=== PATIENT | female | born 1965 | race Caucasian/White ===

== ENCOUNTER 2017-07-29 18:32 | Emergency (ER) | payer MEDICARE, MEDICAID ==
[~2017-07-29] VITALS: Ht 170.2 cm; Wt 84.8 kg
[~2017-07-29 18:32] MED LIST: ALBUTEROL-200 PUFFS/ IH; AUGMENTIN 875-1 EACH PO; CIPROFLOXACIN500 MG PO; CLARITIN 10MG T10 MG PO; FLEXERIL10 MG PO; GABAPENTIN100 MG PO; HYDROCODONE1 TABLET PO; LORTAB 5/500 501 TAB PO; MEDROL 4MG. DOSE4 MG PO; METOPROLOL25 MG PO; NAPROSYN 500MG500 MG PO; NAPROSYN500 M1 PO; OXYCODONE 5MG TA5 MG PO; PREDNISONE 10MG10 MG PO; PREMARIN1.25 MG PO; PREVACID SOLUTA30 M1 PO; ROBAXIN-750750 MG PO; TOPAMAX100 MG PO; VICODIN 5/500 T1 TAB PO; ZITHROMAX Z-PA250 M1 PO
[2017-07-29 19:06] LABS: LYMPH # 2.4 K/mm3 (0.7-4.5); LYMPH % 32.4 % (10-50.0)
[2017-07-29 19:24] LABS: HEMOGLOBIN 10.7 g/dL (12.2-16.2)
--- NOTE | 2017-07-29 19:24 | Emergency Room Report ---
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 Y Clinical Suspician of Infection? N Mental Status: 1 - Regular (Normal Baseline) Sepsis Risk:Low Sepsis Risk Have you (or family members/close friends) recently traveled outside the [place]? N If Yes, where/when: Have you had exposure to infectious disease within the past month? N TB? Other? Specify: Source patient, RN notes reviewed Exam Limitations no limitations Comment Pt had a total knee replacement at [facility] by Dr. Loving on Tuesday. She had to have a catheter to drain urine prior to discharge. On she had a temp to 100 degrees and comes to the ED today because her incision looks a little red and now has a T=99.5. Her LHL=0206 with a normal diff. Cardiac Chest Pain Chest pain indicative of cardiac No Timing/Duration week Severity mild ALLERGIES Coded Allergies: codeine (ITCHING 04/24/16) Home Medications Reported Medications Topiramate (Topamax) 100 MG PO TID Gabapentin (Gabapentin 100MG) 100 MG PO QHS Conjugated Estrogens (Premarin) 1.25 MG PO DAILY Albuterol (Albuterol-Hfa Inhaler) 1 PUFF IH Q4HP PRN ASTHMA Loratadine (Claritin 10MG) 10 MG PO DAILY History Medical History General CAD? No Angina: No NC: No Hypertension? No Hyperlipidemia? No CHF? No DVT? No PE? No COPD? No Asthma? Yes Anemia? No GERD? No Gastric ulcers? No GI Bleed? No Hernia? No Thyroid Problems? No Hypothyroidism? No CVA? No Seizures? No Diabetes? No Renal Insuffiency? No End Stage Renal Disease? No UTI? No Stones? Yes BPH? No GB Disease: Yes Nephritic Syndrome? No Asplenia? No Hepatitis? No Sickle Cell Disease? No Arthritis? No Migraines? Yes Cataracts? No Glaucoma? No MRSA? No HIV? No TB? No Anxiety? No Depression? No Cancer? 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 No Laurent was queried for this patient? Yes Results/Orders Laboratory Tests 07/29/171934: Urine Color YELLOW, Urine Appearance CLEAR, Urine pH 6.0, Ur Specific [place] <= 1.005, Urine Protein NEGATIVE, Urine Ketones 1+ H, Urine Blood 2+ H, Urine Nitrate NEGATIVE, Urine Bilirubin NEGATIVE, Urine Urobilinogen 0.2, Ur Leukocyte Esterase NEGATIVE, Urine RBC 3-5, Urine WBC 3-5, Ur Squamous Epith Cells 5-10, Urine Glucose NEGATIVE 07/29/171854: Lactic Acid 0.7, ESR 66 H 07/29/171854: Sodium 137, Potassium 3.3 L, Chloride 102, Carbon Dioxide 24, BUN 10, Creatinine 0.8, Estimated Creat Clear 113, Estimated GFR (MDRD) 76, Glucose 107 H, Calcium 8.9, Total Bilirubin 0.5, AST 13 L, ALT 16, Alkaline Phosphatase 105 , Total Protein 7.2, Albumin 3.2 L, Globulin 4.0 H, Albumin/Globulin Ratio 0.8 L, WBC 7.3, RBC 3.71 L, Hgb 10.7 L, Hct 32.9 L, MCV 88.7, RDW 13.3, Plt Count 234, MPV 7.4, Gran % 59.0, Gran # 4.3, Lymphocytes % 32.4, Monocytes % 5.6 , Eosinophils % 2.8, Basophils % 0.2, Lymphocytes # 2.4, Monocytes # 0.4, Eosinophils # 0.2, Basophils # 0.0, PUBS MCHC 32.7, MCH 29.0 Current Medication Orders Sig/Nena Start time Last Medication Dose Route Stop Time Status Admin Sodium Chloride 10 ML PRN PRN 07/29 1900 AC IV 07/30 1849 Orders Procedure Date/time Status URINALYSIS/COMPLETE 07/29 1931 Complete SED RATE 07/29 1926 Complete C-REACTIVE PROTEIN 07/29 1926 Complete IV SALINE LOCK 07/29 1850 Active CULTURE, BLOOD 07/29 1850 Active LACTIC ACID 07/29 1850 Complete CBC WITH AUTO DIFF 07/29 1850 Complete CHEM 12 PROFILE 07/29 1850 Complete Departure Departure Time of Disposition 2050 Disposition DC Home or Self Care(routine) Clinical Impression Primary Impression: Postoperative fever Condition STABLE Referrals KEVIN LYNNE (PCP/Family) Patient Instructions DI for Fever (Symptom) -- Adult Additional Instructions I discussed her care with the Orthopedist on-call for Dr. Loving and with her WBC being normal and her incision looking so good, he does not recommend giving her any antibiotics. If her fever goes above 101 degrees, she needs to call them this weekend and go there to be seen Discharge Counseling Counseled pt/family regarding diagnosis, test results, medications/RX, home care, follow up needs ED Critical Care Critical Care No If Critical Care minutes are documented, the time involved in the performance of seperately reportable procedures was not counted toward critical care time documented. I directly delivered medical care to this critically ill and/or injured patient. Timely evaluation and treatment was necessary to address the significant organ system(s) dysfunction present in this patient. at 2054
--- NOTE | 2017-07-29 19:24 | Emergency Room Report ---
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 Y Clinical Suspician of Infection? N Mental Status: 1 - Regular (Normal Baseline) Sepsis Risk:Low Sepsis Risk Have you (or family members/close friends) recently traveled outside the [place]? N If Yes, where/when: Have you had exposure to infectious disease within the past month? N TB? Other? Specify: Source patient, RN notes reviewed Exam Limitations no limitations Comment Pt had a total knee replacement at [facility] by Dr. Loving on Tuesday. She had to have a catheter to drain urine prior to discharge. On she had a temp to 100 degrees and comes to the ED today because her incision looks a little red and now has a T=99.5. Her THJ=5290 with a normal diff. Cardiac Chest Pain Chest pain indicative of cardiac No Timing/Duration week Severity mild ALLERGIES Coded Allergies: codeine (ITCHING 04/24/16) Home Medications Reported Medications Topiramate (Topamax) 100 MG PO TID Gabapentin (Gabapentin 100MG) 100 MG PO QHS Conjugated Estrogens (Premarin) 1.25 MG PO DAILY Albuterol (Albuterol-Hfa Inhaler) 1 PUFF IH Q4HP PRN ASTHMA Loratadine (Claritin 10MG) 10 MG PO DAILY History Medical History General CAD? No Angina: No PR: No Hypertension? No Hyperlipidemia? No CHF? No DVT? No PE? No COPD? No Asthma? Yes Anemia? No GERD? No Gastric ulcers? No GI Bleed? No Hernia? No Thyroid Problems? No Hypothyroidism? No CVA? No Seizures? No Diabetes? No Renal Insuffiency? No End Stage Renal Disease? No UTI? No Stones? Yes BPH? No GB Disease: Yes Nephritic Syndrome? No Asplenia? No Hepatitis? No Sickle Cell Disease? No Arthritis? No Migraines? Yes Cataracts? No Glaucoma? No MRSA? No HIV? No TB? No Anxiety? No Depression? No Cancer? 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 No Laurent was queried for this patient? Yes Results/Orders Laboratory Tests 07/29/171934: Urine Color YELLOW, Urine Appearance CLEAR, Urine pH 6.0, Ur Specific [place] <= 1.005, Urine Protein NEGATIVE, Urine Ketones 1+ H, Urine Blood 2+ H, Urine Nitrate NEGATIVE, Urine Bilirubin NEGATIVE, Urine Urobilinogen 0.2, Ur Leukocyte Esterase NEGATIVE, Urine RBC 3-5, Urine WBC 3-5, Ur Squamous Epith Cells 5-10, Urine Glucose NEGATIVE 07/29/171854: Lactic Acid 0.7, ESR 66 H 07/29/171854: Sodium 137, Potassium 3.3 L, Chloride 102, Carbon Dioxide 24, BUN 10, Creatinine 0.8, Estimated Creat Clear 113, Estimated GFR (MDRD) 76, Glucose 107 H, Calcium 8.9, Total Bilirubin 0.5, AST 13 L, ALT 16, Alkaline Phosphatase 105 , Total Protein 7.2, Albumin 3.2 L, Globulin 4.0 H, Albumin/Globulin Ratio 0.8 L, WBC 7.3, RBC 3.71 L, Hgb 10.7 L, Hct 32.9 L, MCV 88.7, RDW 13.3, Plt Count 234, MPV 7.4, Gran % 59.0, Gran # 4.3, Lymphocytes % 32.4, Monocytes % 5.6 , Eosinophils % 2.8, Basophils % 0.2, Lymphocytes # 2.4, Monocytes # 0.4, Eosinophils # 0.2, Basophils # 0.0, PUBS MCHC 32.7, MCH 29.0 Current Medication Orders Sig/Nena Start time Last Medication Dose Route Stop Time Status Admin Sodium Chloride 10 ML PRN PRN 07/29 1900 AC IV 07/30 1849 Orders Procedure Date/time Status URINALYSIS/COMPLETE 07/29 1931 Complete SED RATE 07/29 1926 Complete C-REACTIVE PROTEIN 07/29 1926 Complete IV SALINE LOCK 07/29 1850 Active CULTURE, BLOOD 07/29 1850 Active LACTIC ACID 07/29 1850 Complete CBC WITH AUTO DIFF 07/29 1850 Complete CHEM 12 PROFILE 07/29 1850 Complete Departure Departure Time of Disposition 2050 Disposition DC Home or Self Care(routine) Clinical Impression Primary Impression: Postoperative fever Condition STABLE Referrals KEVIN LYNNE (PCP/Family) Patient Instructions DI for Fever (Symptom) -- Adult Additional Instructions I discussed her care with the Orthopedist on-call for Dr. Loving and with her WBC being normal and her incision looking so good, he does not recommend giving her any antibiotics. If her fever goes above 101 degrees, she needs to call them this weekend and go there to be seen Discharge Counseling Counseled pt/family regarding diagnosis, test results, medications/RX, home care, follow up needs ED Critical Care Critical Care No If Critical Care minutes are documented, the time involved in the performance of seperately reportable procedures was not counted toward critical care time documented. I directly delivered medical care to this critically ill and/or injured patient. Timely evaluation and treatment was necessary to address the significant organ system(s) dysfunction present in this patient. at 2054
--- OUTSIDE RECORDS SUMMARY | 2017-07-29 19:51 | External Medical Summary Rpt ---
Author Author [facility] Organization [facility] Address Unknown Phone Unavailable Care Team Providers Care Habilitation Worker Name Role Phone MAGED, (REF) PCP [phone] Encounter AGUSTINA PANG [id number] Date(s): 06/07/17 - 07/26/17 [facility] [address] [place] [address]- Discharge Diagnosis: Unilateral primary osteoarthritis, right knee Discharge Diagnosis: unicompartmental arthroplasty of right knee Discharge Diagnosis: Benign essential hypertension Discharge Diagnosis: Asthma Discharge Diagnosis: Seasonal allergies Discharge Diagnosis: History of Kidney stones Discharge Diagnosis: Migraines Discharge Diagnosis: Anxiety Discharge Diagnosis: Obesity (BMI 30.0-34.9) Discharge Disposition: OP Self Care or Home Attending Physician: FELECIA DYER MD-ORT Admitting Physician: ROMERO PALMER MD-INT Referring Physician: FELECIA DYER MD-ORT Reason for Visit UNILATERAL PRIMARY OSTEOARTHRITIS, UNSPECIFIED KNEE Vital Signs Most recent 1 2 3 to oldest [Reference Range]: Temperature Oral (07/26/17 Oral (07/26/17 Oral (07/26/17 Source 7:00 PM) 3:00 PM) 7:27 AM) Temperature Fahrenheit Fahrenheit Fahrenheit Mode (07/26/17 7:00 (07/26/17 3:00 (07/26/17 7:27 PM) PM) AM) Temperature, 98.3 Deg F 97.9 Deg F 97.8 Deg F Fahrenheit (07/26/17 7:00 (07/26/17 3:00 (07/26/17 7:27 [96.8-99.7 PM) PM) AM) Deg F] Clinical 36.8 Deg C 36.6 Deg C 36.6 Deg C Temperature, (07/26/17 7:00 (07/26/17 3:00 (07/26/17 7:27 C PM) PM) AM) Pulse Method Non-Invasive BP Device (07/12/17 10:22 AM) Pulse Rhythm Regular (07/12/17 10: AM) Peripheral 66 bpm (07/12/17 Pulse Rate : AM) [60-100 bpm] Heart Rate 67 bpm (07/26/17 92 bpm (07/26/17 80 bpm (07/26/17 Monitored 7:00 PM) 3:00 PM) 8:41 AM) [60-100 bpm] Respiratory 16 Breaths/Min 17 Breaths/Min 18 Breaths/Min Rate [14-20 (07/26/17 7:00 (07/26/17 3:00 (07/26/17 8:00 Breaths/Min] PM) PM) AM) Blood Arm, right upper Pressure (07/12/17 10:22 Location AM) Blood Non-Invasive BP Pressure Device (07/12/17 Source 10: AM) Blood Sitting (07/12/17 Pressure : AM) Position Blood 126/61 mmHg 123/62 mmHg 118/60 mmHg Pressure (07/26/17 7:00 (07/26/17 3:00 (07/26/17 8:00 [90-140/60-9 PM) PM) AM) 0 mmHg] Mean 83 mmHg (07/26/17 79 mmHg (07/26/17 74 mmHg (07/26/17 Arterial 7:00 PM) 8:00 AM) 7:27 AM) Pressure (MAP) Mean 68 (07/26/17 7:27 75 (07/26/17 3:58 64 (07/26/17 Arterial AM) AM) 12:18 AM) Pressure (MAP)-BMDI Oxygen 98 % (07/26/17 98 % (07/26/17 98 % (07/26/17 Saturation 7:00 PM) 3:00 PM) 8:00 AM) [94-100 %] Oxygen Room air Room air Room air Therapy Mode (07/26/17 8:41 (07/26/17 8:00 (07/25/17 8:21 AM) AM) PM) Oxygen Flow 2 Liter/Min 2 Liter/Min 2 Liter/Min Rate (07/25/17 1:05 (07/25/17 12:45 (07/25/17 12:30 PM) PM) PM) Height Stated (07/12/17 Source 10:22 AM) Height Entry [place] Format (07/12/17 10:22 AM) Height/Lengt 67 Inch (07/12/17 h CITIZEN [place] 10:22 AM) CLINICALHEIG 170.18 cm HT (07/12/17 10:22 AM) Weight Standing scale Source (07/12/17 10:22 AM) Weight Entry [place] Format (07/12/17 10:22 AM) Weight 205 lb (07/12/17 [place] lb 10:22 AM) CLINICALWEIG 93.18 kg HT (07/12/17 10:22 AM) Body Surface 2.05 m2 (07/12/17 Area (BSA) 10:22 AM) Body Mass 32.2 kg/m2 Index [19-24 *HI*(07/12/17 kg/m2] 10:22 AM) [place] Body 61 kg (07/12/17 Weight 10:22 AM) Problem List Condition Effective Status Health Informant Dates Status Anxiety(Conf Active irmed) Asthma(Confi Active rmed) Back Active pain(Confirm ed) HTN Active (hypertensio n)(Confirmed ) Kidney Resolved stones(Confi rmed) Migraines(Co Active nfirmed) Osteoarthrit Active is(Confirmed ) Seasonal Active allergies(Co nfirmed) Sinusitis(Co Active nfirmed) Allergies, Adverse Reactions, Alerts Substance Reaction Severity Status codeine1 Itching Active 1itching Medications albuterol (ProAir HFA 90 mcg/inh inhalation aerosol)2 Puff(s) Inhalation Four Times A Day as needed as needed for wheezing. aspirin (aspirin 81 mg oral tablet)1 Tablet(s) Oral Two Times A Day for 15 Day(s). Refills: 0.Ordering provider: ROMERO PALMER MD-INT cetirizine (cetirizine 10 mg oral tablet) 1 Tablet(s) Oral Every Day. conjugated estrogens (Premarin 1.25 mg oral tablet)1 Tablet(s) Oral Every Day. fluticasone-vilanterol (Breo Ellipta 200 mcg-25 mcg/inh inhalation powder)1 Puff(s) Inhalation Every Day. gabapentin (gabapentin 300 mg oral capsule) 2 Capsule(s) Oral At Bedtime. hydrochlorothiazide-losartan (hydroCHLOROthiazide-losartan 12.5 mg-50 mg oral tablet)0.5 Tablet(s) Oral Every Day. levocetirizine (levocetirizine 5 mg oral tablet)5 Milligram(s) Oral Every Day. oxyCODONE (oxyCODONE 5 mg oral tablet)1 Tablet(s) Oral Every 6 Hours as needed Pain (Moderate 4-6). potassium chloride (potassium chloride 10 mEq oral capsule, extended release)1 Capsule(s) Oral Every Day. topiramate (topiramate 100 mg oral tablet) 1 Tablet(s) Oral Three Times A Day. traMADol (traMADol 50 mg oral tablet)1 Tablet(s) Oral Four Times A Day as needed Pain (Mild 1-3). Results GENERAL CHEMISTRY Most recent 1 2 3 to oldest [Reference Range]: Sodium Level 140 mmol/L 141 mmol/L [136-145 (07/26/17 3:38 (07/12/17 11:12 mmol/L] AM) AM) Potassium 3.8 mmol/L 3.8 mmol/L Level (07/26/17 3:38 (07/12/17 11:12 [3.5-5.1 AM) AM) mmol/L] Chloride 106 mmol/L 106 mmol/L Level (07/26/17 3:38 (07/12/17 11:12 [98-107 AM) AM) mmol/L] Carbon 24 mmol/L 25 mmol/L Dioxide (07/26/17 3:38 (07/12/17 11:12 Level [21-32 AM) AM) mmol/L] Anion Gap 14 (07/26/17 3:38 14 (07/12/17 [9-20] AM) 11:12 AM) Glucose 108 mg/dL 99 mg/dL Level *HI*(07/26/17 (07/12/17 11:12 [74-106 3:38 AM) AM) mg/dL] Blood Urea 10 mg/dL 10 mg/dL Nitrogen (07/26/17 3:38 (07/12/17 11:12 [7-18 mg/dL] AM) AM) Creatinine 0.80 mg/dL 0.84 mg/dL Level (07/26/17 3:38 (07/12/17 11:12 [0.55-1.02 AM) AM) mg/dL] eGFR 92 mL/min/1.73m2 87 mL/min/1.73m2 [>=60 (07/26/17 3:38 (07/12/17 11:12 mL/min/1.73m AM) AM) 2] eGFR 76 mL/min/1.73m2 72 mL/min/1.73m2 NonAfrican (07/26/17 3:38 (07/12/17 11:12 [>=60 AM) AM) mL/min/1.73m 2] Bun/Creatini 12.5 (07/26/17 11.9 (07/12/17 ne 3:38 AM) 11:12 AM) [8.0-20.0] Calcium 8.3 mg/dL 9.0 mg/dL Level *LOW*(07/26/17 (07/12/17 11:12 [8.5-10.1 3:38 AM) AM) mg/dL] Protein 6.9 Gram/dL Total (07/12/17 11:12 [6.4-8.5 AM) Gram/dL] Albumin 3.4 Gram/dL Level (07/12/17 11:12 [3.4-5.0 AM) Gram/dL] Globulin 3.5 Gram/dL [1.5-4.5 (07/12/17 11:12 Gram/dL] AM) A/G Ratio 1.0 [1.1-2.5] *LOW*(07/12/17 11:12 AM) Bilirubin 0.4 mg/dL Total (07/12/17 11:12 [0.2-1.0 AM) mg/dL] Alk Phos 103 Units/Liter [46-116 (07/12/17 11:12 Units/Liter] AM) AST [15-37 13 Units/Liter Units/Liter] *LOW*(07/12/17 11:12 AM) ALT [14-59 13 Units/Liter Units/Liter] *LOW*(07/12/17 11:12 AM) Device No action Require Notified Nurse Comment 1 *NA*(07/25/17 RBV 11:54 AM) *NA*(07/25/17 7:12 AM) Glucose POC2 111 mg/dL 104 mg/dL 117 mg/dL [70-110 *HI*(07/26/17 (07/26/17 6:18 *HI*(07/25/17 mg/dL] 12:36 PM) AM) 8:18 PM) Hgb A1C 5.6 % (07/12/17 [4.5-6.2 %] 11:12 AM) eAVG Glucose 114 mg/dL *NA*(07/12/17 11:12 AM) HEMATOLOGY Most recent 1 2 3 to oldest [Reference Range]: WBC [4.2-9.1 5.1 K/uL K/uL] (07/12/17 11:12 AM) RBC 4.25 Million/uL [3.93-5.22 (07/12/17 11:12 Million/uL] AM) Hgb 10.1 Gram/dL 12.3 Gram/dL [11.2-15.7 *LOW*(07/26/17 (07/12/17 11:12 Gram/dL] 3:38 AM) AM) Hct 30.8 % 37.1 % (07/12/17 [34.1-44.9 *LOW*(07/26/17 11:12 AM) %] 3:38 AM) MCV 87.3 fL (07/12/17 [79.0-94.8 11:12 AM) fL] MCH 28.9 pg (07/12/17 [25.6-32.2 11:12 AM) pg] MCHC 33.2 Gram/dL [32.2-36.5 (07/12/17 11:12 Gram/dL] AM) Platelet 190 K/uL Count (07/12/17 11:12 [163-369 AM) K/uL] MPV 9.1 fL [9.4-12.4 *LOW*(07/12/17 fL] 11:12 AM) RDW 13.8 % (07/12/17 [11.6-14.4 11:12 AM) %] Neut % 47.3 % (07/12/17 [34.0-71.0 11:12 AM) %] Neut # 2.40 K/uL [1.56-6.13 (07/12/17 11:12 K/uL] AM) Lymph % 42.2 % (07/12/17 [19.0-53.0 11:12 AM) %] Lymph # 2.14 K/uL [1.18-3.74 (07/12/17 11:12 K/uL] AM) [place] % 7.9 % (07/12/17 [4.7-12.5 %] 11:12 AM) [place] # 0.40 K/uL [0.24-0.82 (07/12/17 11:12 K/uL] AM) Eos % 2.4 % (07/12/17 [1.0-7.0 %] 11:12 AM) Eos # 0.12 K/uL [0.04-0.54 (07/12/17 11:12 K/uL] AM) Baso % 0.2 % (07/12/17 [0.0-1.0 %] 11:12 AM) Baso # 0.01 K/uL [0.01-0.08 (07/12/17 11:12 K/uL] AM) Slide Review No (07/12/17 11:12 AM) COAGULATION Most recent 1 2 3 to oldest [Reference Range]: PT [9.6-11.5 10.4 Second(s) Second(s)] (07/12/17 11:12 AM) INR 1.0 (07/12/17 [0.9-1.1] 11:12 AM) PTT 29.4 Second(s) [24.2-31.8 (07/12/17 11:12 Second(s)] AM) URINALYSIS Most recent 1 2 3 to oldest [Reference Range]: Urine Type. U CleanCatch *NA*(07/12/17 11:16 AM) Urine Color Yellow *NA*(07/12/17 11:16 AM) Urine Clear (07/12/17 Appearance 11:16 AM) Urine 1.011 (07/12/17 Specific 11:16 AM) [place] [1.005-1.030 ] Urine pH 7.0 (07/12/17 Dipstick 11:16 AM) [6.0-8.0] Urine Negative Leukocyte (07/12/17 11:16 Esterase AM) [Negative] Urine Negative Nitrite (07/12/17:16 [Negative] AM) Urine Negative Protein (10/10/17 11:16 Dipstick AM) [Negative] Urine Negative Glucose (07/12/17 11:16 Dipstick AM) [Negative] Urine Negative Ketones (07/12/17 11:16 Dipstick AM) [Negative] Urine 1.0 EU/dL Urobilinogen (07/12/17 11:16 Dipstick AM) [0.2-1.0 EU/dL] Urine Negative mg/dL Bilirubin (07/12/17 11:16 Dipstick AM) [Negative mg/dL] Urine Blood Negative Dipstick (07/12/17 11:16 [Negative] AM) Ur RBC [None 0-2 /HPF Seen /HPF] *ABN*(07/12/17 11:16 AM) Ur WBC [None 0-2 /HPF Seen /HPF] (07/12/17 11:16 AM) Ur Bacteria Trace [None Seen] *ABN*(07/12/17 11:16 AM) Ur 10-20 /HPF Epithelial *ABN*(07/12/17 Cells [None 11:16 AM) Seen /HPF] Microbiology Reports TEST: MRSA Surveillance STATUS: Auth (Verified) BODY SITE: SOURCE: Nasal COLLECTED DATE/TIME: 07/12/17 11:12 AMFINAL REPORTNo MRSA isolated For Infection Control surveillance only Immunizations No data available for this section Procedures Procedure Date Related Body Site Diagnosis cardiac cath (no stents/no intervention) cholecystectomy left uni knee arthroplasty lithotripsy total hysterectomy Social History Social History Response Type Smoking Status Never smoker Assessment and Plan Extracted from: Title: Discharge Author: ROMERO PALMER Date: 07/26/17 Summary_Jocelyne Crowley MD-INT Basic Gairzlciory59 years old white female with a complicated medical history as listed below in addition to degenerative joint disease is admitted after she had unicompartmental arthroplasty of the right knee by Dr. Dyer.1-urinary retention: Postoperatively patient had urinary retention and she had in and out catheters every 6 hours in addition to Flomax 0.4 mg every 4 hours. Patient will be discharged with the Cummings in and follow up with urology as outpatient.2-benign essential hypertension: All blood pressure medications were on hold for systolic blood pressure less than 130 and resumed 1 blood pressure medication became stabilized.3-asthma: Patient was on when necessary as well as scheduled labs4-Obesity: Patient was on sleep apnea precautions. Oxygen and BiPAP were on board Discharge InformationPatient had surgery and is recovering well. patient is awake, alert, cooperative, responsive, and is under no acute distress. Patient is on pain medication as recommended by DR Do's pain is well controlled. Patient is on DVT prophylaxis and also on scheduled bowel regimen. Started on clear liquid diet & advanced as tolerated to regular diet. Patient has urinary retention and she had in and out catheters every 6 hours and started on Flomax to twice a day and she will be discharged to home on a Cummings catheter to follow-up with urology as outpatient. Patient started on PT/OT and is participating well with rehabilitation. Review of SystemsConstitutional: No fever, No weakness, No fatigue.Eye: No recent visual problem, No double vision, No visual disturbances.Ear/Nose/Mouth/Throat: No nasal congestion, No sore throat.Respiratory: No shortness of breath, No cough, No wheezing.Cardiovascular: No chest pain, No tachycardia.Gastrointestinal: No nausea, No vomiting.Genitourinary: Negative.Musculoskeletal: Negative.Integumentary: No rash, No pruritus.Neurologic: Alert and oriented X4, no dizziness. Musculoskeletal: Negative. Integumentary: No rash, No pruritus. Neurologic: Alert and oriented X4, no dizziness. Health StatusAllergies:Allergies (1) ActiveReactioncodeineItchingCurrent medications:Medications (30) ActiveScheduled: (13)acetaminophen 500 mg tab 1,000 mg 2 Tab, Oral, B5Uodsdatwjsc 250 mg cap 500 mg 2 Cap, Oral, X3Nbakmtojqjz 300 mg cap 600 mg 2 Cap, Oral, At Bedtimeibuprofen 400 mg tab 400 mg 1 Tab, Oral, V7Rkqnfwidmku 10 mg tab 10 mg 1 Tab, Oral, Dailylosartan/hctz 50/12.5 mg tab 0.5 Tab, Oral, Dailymometasone/formoterol 200/5 mcg inh 2 Puff, Inhalation, BIDpotassium chloride CR 10 mEq tab 10 mEq 1 Tab, Oral, Dailypregabalin 75 mg cap 75 mg 1 Cap, Oral, T02UPwaenamsmgnwev 10 mg tab 10 mg 1 Tab, Oral, R89MPlhsxrqxlolgy CR 0.4 mg cap 0.4 mg 1 Cap, Oral, BIDtopiramate 100 mg tab 100 mg 1 Tab, Oral, TIDtranexamic acid 1,000 mg + syringe 1 Each + NaCl 0.9% 20 mL 1,000 mg 10 mL, Topical, 1-TimeContinuous: (2)D5/LR 1,000 mL 1,000 mL, IntraVENous, 75 mL/Hrlactated ringers 1,000 mL 1,000 mL, IntraVENous, 100 mL/HrPRN: (15)al hydrox/mag hydrox/simeth 30 mL liq 30 mL, Oral, A1Vlgmpdryls 90 mcg/1 puff inh 6.7 g 1 Puff, Inhalation, QIDalbuterol-ipratropium inh 3 mL 3 mL, Nebulized Inhalation, U7Ktrryeioqe 10 mg supp 10 mg 1 Supp, Rectal, DailydiphenhydrAMINE 25 mg tab 25 mg 1 Tab, Oral, On-CALLdocusate calcium 240 mg cap 240 mg 1 Cap, Oral, DailyHYDROmorphone 1 mg/1 mL inj 0.5 mg 0.5 mL, IV Push, K5Eqrmbtnoft hydroxide 8% liq 30 mL 15 mL, Oral, B8Ssvnsqvlikx 800 mg tab 800 mg 1 Tab, Oral, TIDondansetron 4 mg/2 mL inj 4 mg 2 mL, IV Push, Q4ZmlqIYTZKO 5 mg tab 10 mg 2 Tab, Oral, A2Xdzpegj 1.4% throat spray 5 [place], Oral, Z8Mzduekfahunot 25 mg/1 mL inj 12.5 mg 0.5 mL, IV Push, Z5EqgkLQFda 50 mg tab 50 mg 1 Tab, Oral, QIDtraZODone 50 mg tab 50 mg 1 Tab, Oral, At BedtimeProblem list:Active Problems (8)Anxiety Asthma Back pain HTN (hypertension) Migraines Osteoarthritis Seasonal allergies Sinusitis bisacodyl 10 mg supp 10 mg 1 Supp, Rectal, Daily diphenhydrAMINE 25 mg tab 25 mg 1 Tab, Oral, On-CALL docusate calcium 240 mg cap 240 mg 1 Cap, Oral, Daily HYDROmorphone 1 mg/1 mL inj 0.5 mg 0.5 mL, IV Push, Q3H magnesium hydroxide 8% liq 30 mL 15 mL, Oral, Q6H metaxalone 800 mg tab 800 mg 1 Tab, Oral, TID ondansetron 4 mg/2 mL inj 4 mg 2 mL, IV Push, Q6H oxyCODONE 5 mg tab 10 mg 2 Tab, Oral, Q6H phenol 1.4% throat spray 5 [place], Oral, Q2H promethazine 25 mg/1 mL inj 12.5 mg 0.5 mL, IV Push, Q6H traMADol 50 mg tab 50 mg 1 Tab, Oral, QID traZODone 50 mg tab 50 mg 1 Tab, Oral, At Bedtime Problem list: Active Problems (8) Anxiety Asthma Back pain HTN (hypertension) Migraines Osteoarthritis Seasonal allergies Sinusitis Physical ExaminationVS/MeasurementsVital Ltseirsugedk92/24/2017 8:00 EDT Heart Rate Monitored 46 bpm LOW Respiratory Rate 18 Breaths/Min Systolic Blood Pressure 118 mmHg Diastolic Blood Pressure 60 mmHg Mean Arterial Pressure (MAP) 79 mmHg Oxygen Saturation 98 % Oxygen Therapy Mode Room air07/26/2017 7:27 EDT Temperature Source Oral Temperature Mode Fahrenheit Temperature, Fahrenheit 97.8 Deg F Clinical Temperature, C 36.6 Deg C Heart Rate Monitored 97 bpm Respiratory Rate 16 Breaths/Min Systolic Blood Pressure 112 mmHg Diastolic Blood Pressure 55 mmHg LOW Mean Arterial Pressure (MAP) 74 mmHg Mean Arterial Pressure (MAP)-BMDI 68 Oxygen Saturation 95 %General: Alert and oriented, No acute distress.Eye: Pupils are equal, round and reactive to light, Extraocular movements are intact.HENT: Oral mucosa is moist.Neck: Supple, No carotid bruit, No jugular venous distention, No lymphadenopathy, No thyromegaly.Respiratory: Lungs are clear to auscultation, Breath sounds are equal.Cardiovascular: Normal rate, Regular rhythm, No murmur.Gastrointestinal: Soft, Non-tender, Normal bowel sounds, No organomegaly.Genitourinary: No costovertebral angle tenderness, No inguinal tenderness.Lymphatics: No lymphadenopathy neck, axilla, groin.Musculoskeletal: Normal strength, No swelling.Integumentary: Warm, Intact, No rash, WOUND STABLE.Neurologic: Alert, Oriented, No focal deficits.Psychiatric: Cooperative, Appropriate mood & affect. Genitourinary: No costovertebral angle tenderness, No inguinal tenderness. Lymphatics: No lymphadenopathy neck, axilla, groin. Musculoskeletal: Normal strength, No swelling. Integumentary: Warm, Intact, No rash, WOUND STABLE. Neurologic: Alert, Oriented, No focal deficits. Psychiatric: Cooperative, Appropriate mood & affect. Results Review Review / Management Results review: All Results 07/26/2017 3:38 EDT Sodium Level 140 mmol/L Potassium Level 3.8 mmol/L Chloride Level 106 mmol/L Carbon Dioxide Level 24 mmol/L Anion Gap 14 Glucose Level 108 mg/dL HI Blood Urea Nitrogen 10 mg/dL Creatinine Level 0.80 mg/dL eGFR 92 mL/min/1.73m2 eGFR NonAfrican 76 mL/min/1.73m2 Bun/Creatinine 12.5 Calcium Level 8.3 mg/dL LOW Hgb 10.1 Gram/dL LOW Hct 30.8 % LOW . Condition: Fair. Discharge PlanDischarge Summary PlanDischarge Status: stable.OrdersOrder Profile (Selected)Inpatient OrdersOrderedDischarge Follow Up Instructions: Start: 07/26/17 15:35:00 EDT, Follow-up with Dr. Dyer as scheduled./Mechanical appointment for follow-up is Dr. Garner as outpatient in 1 weekDischarge Notification Pharmacy: Start: 07/26/17 15:35:56 EDTDischarge: Start: 07/26/17 15:35:00 EDT, Discharge to: Home.DiagnosisUnilateral primary osteoarthritis, right knee - Discharge, Medical. Unicompartmental arthroplasty of right knee - Discharge, Medical.Benign essential hypertension - Discharge, Medical.Asthma - Discharge, Medical.Seasonal allergies - Discharge, Medical.History of Kidney stones - Discharge, Medical.Migraines - Discharge, Medical.Anxiety - Discharge, Medical.Obesity (BMI 30.0-34.9) - Discharge, Medical.CourseImproving.Stable.Plan/ pt is HD & CLINICALLY STABLE AFEBRILE OK TO D/C HOME ALL CONSULTANTS AGREE FOR HER D/C HOME ON HH / OUTPT.REHAB. Discussed with patient and family patient condition..OrdersOrder Profile (Selected)PrescriptionsPrescribedaspirin 81 mg oral tablet: 1 Tab, Oral, Tab, BID, # 30 Tab, 0 Refill(s), other reason (Rx)Documented MedicationsDocumentedBreo Ellipta 200 mcg-25 mcg/inh inhalation powder: 1 Puff, Inhalation, Daily, 0 Refill(s)Premarin 1.25 mg oral tablet: 1 Tab, Oral, Daily, 0 Refill(s)ProAir HFA 90 mcg/inh inhalation aerosol: 2 Puff, Inhalation, QID, PRN as needed for wheezing, 0 Refill(s)cetirizine 10 mg oral tablet: 1 Tab, Oral, Daily, 0 Refill(s)gabapentin 300 mg oral capsule: 2 Cap, Oral, At Bedtime, 0 Refill(s)hydroCHLOROthiazide-losartan 12.5 mg-50 mg oral tablet: 0.5 Tab, Oral, Daily, 0 Refill(s)levocetirizine 5 mg oral tablet: 5 mg, Oral, Tab, Daily, # 15 Tab, 0 Refill(s)potassium chloride 10 mEq oral capsule, extended release: 1 Cap, Oral, CR Cap, Daily, # 30 Cap, 0 Refill(s)topiramate 100 mg oral tablet: 1 Tab, Oral, TID, 0 Refill(s). aspirin 81 mg oral tablet: 1 Tab, Oral, Tab, BID, # 30 Tab, 0 Refill(s), other reason (Rx) Documented Medications Documented Breo Ellipta 200 mcg-25 mcg/inh inhalation powder: 1 Puff, Inhalation, Daily, 0 Refill(s) Premarin 1.25 mg oral tablet: 1 Tab, Oral, Daily, 0 Refill(s) ProAir HFA 90 mcg/inh inhalation aerosol: 2 Puff, Inhalation, QID, PRN as needed for wheezing, 0 Refill(s) cetirizine 10 mg oral tablet: 1 Tab, Oral, Daily, 0 Refill(s) gabapentin 300 mg oral capsule: 2 Cap, Oral, At Bedtime, 0 Refill(s) hydroCHLOROthiazide-losartan 12.5 mg-50 mg oral tablet: 0.5 Tab, Oral, Daily, 0 Refill(s) levocetirizine 5 mg oral tablet: 5 mg, Oral, Tab, Daily, # 15 Tab, 0 Refill(s) potassium chloride 10 mEq oral capsule, extended release: 1 Cap, Oral, CR Cap, Daily, # 30 Cap, 0 Refill(s) topiramate 100 mg oral tablet: 1 Tab, Oral, TID, 0 Refill(s). Impression and Plan [id number] [id number] Extracted from: Title: Pharmacy Note- Author: ANJU HUSSEIN, Date: 07/25/17 Home Medications [facility] verified patient's allergies and home medication list with the patient and pharmacy records and are as follows:Home Medications (9) ActiveBreo Ellipta 200 mcg-25 mcg/inh inhalation powder 1 Puff, Inhalation, Dailycetirizine 10 mg oral tablet 10 mg = 1 Tab, Oral, Dailygabapentin 300 mg oral capsule 600 mg = 2 Cap, Oral, At BedtimehydroCHLOROthiazide-losartan 12.5 mg-50 mg oral tablet 0.5 Tab, Oral, Dailylevocetirizine 5 mg oral tablet 5 mg, Oral, Dailypotassium chloride 10 mEq oral capsule, extended release 10 mEq = 1 Cap, Oral, DailyPremarin 1.25 mg oral tablet 1.25 mg = 1 Tab, Oral, DailyProAir HFA 90 mcg/inh inhalation aerosol 2 Puff, PRN, Inhalation, QIDtopiramate 100 mg oral tablet 100 mg = 1 Tab, Oral, TIDAllergies (1) ActiveReactioncodeineAnju Redding, PharmD, MPH Allergies (1) ActiveReaction codeineAnju Woods, PharmD, MPH Hospital Discharge Instructions Patient EducationCompression Stockings Cryotherapy Cummings Catheter Care, Adult, Ygfo-ts-Uxqy Hand Washing, Ualm-pj-Qzlj Knee Immobilizer Total Knee Replacement Total Knee Replacement, Care After Walker Use
--- OUTSIDE RECORDS SUMMARY | 2017-07-29 19:51 | External Medical Summary Rpt ---
Author Author [facility] Organization [facility] Address Unknown Phone Unavailable Care Team Providers Care Research Worker Encyclopedia Name Role Phone MAGED, (REF) PCP [phone] Encounter AGUSTINA PANG [id number] Date(s): 06/07/17 - 07/26/17 [facility] [address] [place] [address]- Discharge Diagnosis: Unilateral primary osteoarthritis, right knee [...] Stated (07/12/17 Source 10:22 AM) Height Entry Nash Format (07/12/17 10:22 AM) Height/Lengt 67 Inch (07/12/17 h TRISTANIAN 10:22 AM) CLINICALHEIG 170.18 cm HT (07/12/17 10:22 AM) Weight Standing scale Source (07/12/17 10:22 AM) Weight Entry Nash Format (07/12/17 10:22 AM) Weight 205 lb (07/12/17 [place] lb 10:22 AM) CLINICALWEIG 93.18 kg HT (07/12/17 10:22 AM) Body Surface 2.05 m2 (07/12/17 Area (BSA) 10:22 AM) Body Mass 32.2 kg/m2 Index [19-24 *HI*(07/12/17 kg/m2] 10:22 AM) [place] Body 61 kg (07/12/17 Weight 10:22 AM) [...] 2.14 K/uL [1.18-3.74 (07/12/17 11:12 K/uL] AM) [place] % 7.9 % (07/12/17 [4.7-12.5 %] 11:12 AM) [place] # 0.40 K/uL [0.24-0.82 (07/12/17 11:12 K/uL] [...] AM) Urine 1.011 (07/12/17 Specific 11:16 AM) [place] [1.005-1.030 ] Urine pH 7.0 (07/12/17 Dipstick [...] PALMER Date: 07/26/17 Summary_Jocelyne Crowley MD-INT Basic Nuovbjmgokg89 years old white female with a complicated [...] mg tab 1,000 mg 2 Tab, Oral, N8Ytomfxsqhfd 250 mg cap 500 mg 2 Cap, Oral, Q5Eaddifoshsc 300 mg cap 600 mg 2 Cap, Oral, At Bedtimeibuprofen 400 mg tab 400 mg 1 Tab, Oral, R1Tjdrtbgvpnx 10 mg tab 10 mg 1 Tab, Oral, Dailylosartan/hctz 50/12.5 mg tab 0.5 Tab, Oral, Dailymometasone/formoterol 200/5 mcg inh 2 Puff, Inhalation, BIDpotassium chloride CR 10 mEq tab 10 mEq 1 Tab, Oral, Dailypregabalin 75 mg cap 75 mg 1 Cap, Oral, K60HJnflfbtzbbzdoz 10 mg tab 10 mg 1 Tab, Oral, I78GCpyxdaaybmevt CR 0.4 mg cap 0.4 mg 1 Cap, Oral, BIDtopiramate 100 mg tab 100 mg 1 Tab, Oral, TIDtranexamic acid 1,000 mg + syringe 1 Each + NaCl 0.9% 20 mL 1,000 mg 10 mL, Topical, 1-TimeContinuous: (2)D5/LR 1,000 mL 1,000 mL, IntraVENous, 75 mL/Hrlactated ringers 1,000 mL 1,000 mL, IntraVENous, 100 mL/HrPRN: (15)al hydrox/mag hydrox/simeth 30 mL liq 30 mL, Oral, F4Ptbwpydqwm 90 mcg/1 puff inh 6.7 g 1 Puff, Inhalation, QIDalbuterol-ipratropium inh 3 mL 3 mL, Nebulized Inhalation, I5Lwvroaixzj 10 mg supp 10 mg 1 Supp, Rectal, DailydiphenhydrAMINE 25 mg tab 25 mg 1 Tab, Oral, On-CALLdocusate calcium 240 mg cap 240 mg 1 Cap, Oral, DailyHYDROmorphone 1 mg/1 mL inj 0.5 mg 0.5 mL, IV Push, F6Apvkynphhj hydroxide 8% liq 30 mL 15 mL, Oral, Q8Hsinfophdhl 800 mg tab 800 mg 1 Tab, Oral, TIDondansetron 4 mg/2 mL inj 4 mg 2 mL, IV Push, C0LurdUFLQHG 5 mg tab 10 mg 2 Tab, Oral, B2Yyejhfe 1.4% throat spray 5 [place], Oral, P9Uwnxnrumzlsyz 25 mg/1 mL inj 12.5 mg 0.5 mL, IV Push, J0ElvzKSYmr 50 mg tab 50 mg 1 Tab, [...] Oral, Q6H phenol 1.4% throat spray 5 [place], Oral, Q2H promethazine 25 mg/1 mL inj 12.5 mg 0.5 mL, IV Push, Q6H traMADol 50 mg tab 50 mg 1 Tab, Oral, QID traZODone 50 mg tab 50 mg 1 Tab, Oral, At Bedtime Problem list: Active Problems (8) Anxiety Asthma Back pain HTN (hypertension) Migraines Osteoarthritis Seasonal allergies Sinusitis Physical ExaminationVS/MeasurementsVital Nfxitxzheove83/24/2017 8:00 EDT Heart Rate Monitored 46 bpm [...] Author: ANJU HUSSEIN, Date: 07/25/17 Home Medications [facility] verified patient's allergies and [...] EducationCompression Stockings Cryotherapy [place] Catheter Care, Adult, Bvbf-wl-Wovr Hand Washing, Aqqj-wm-Yyre Knee Immobilizer Total Knee Replacement Total Knee Replacement, Care After Walker Use
[2017-07-29 19:59] LABS: URINE BILIRUBIN - DIPSTICK NEGATIVE (NEG); URINE BLOOD 2+ (NEG)
--- OUTSIDE RECORDS SUMMARY | 2017-07-29 19:59 | External Medical Summary Rpt | CCD ---
Author Author , KELSY Organization KELSY Address Unknown Phone Care Team Providers Care Calliope Player Name Role Phone [employer] Unavailable Unavailable INC, [employer] Unavailable Unavailable INC, [employer] [facility] Unavailable Unavailable [place], [facility] [place] MAGED, MAGED Unavailable Unavailable MAGED JANE, MAGED Unavailable Unavailable JANE MAGED JANE, MAGED Unavailable Unavailable JANE GUTIERREZ, Unavailable Unavailable Kenya ARNETT, Unavailable Unavailable Kenya ORTIZ ARMS DON, ARMS DON Unavailable Unavailable [facility] Unavailable Unavailable [facility] Unavailable Unavailable MEDICAL GROUP, [facility] SILVER TER, SILVER TER Unavailable Unavailable BENSEMA MAR, BENSEMA Unavailable Unavailable MAR ADDISON, ALACIA L, Unavailable Unavailable ADDISON, ALACIA L [facility] Unavailable Unavailable LABORATORIES, [facility] Unavailable Unavailable LABORATORIES, [facility] Unavailable Unavailable ORTHOP[facility]EDICS [facility], [facility] Unavailable Unavailable HOSPITAL, [facility] [employer] Unavailable Unavailable GUADALUPE FRA, GUADALUPE FRA Unavailable Unavailable [facility] & Unavailable Unavailable SLEEP CON[facility], [facility], [facility]CS Unavailable Unavailable [facility], Unavailable Unavailable [facility] Unavailable [facility]available [facility] CHESTNUT, CHESTNUT Unavailable Unavailable CHIPPS CLAIRE & Unavailable Unavailable DUBILIER, [facility]IPPS CLAIRE & LELEER [facility] Unavailable Unavailable [facility] Unavailable Unavailable [facility], YAMIL [facility] Unavailable Unavailable PHYSICIAN PRA, YAMIL [facility] PHYSICIAN PRA [facility], Unavailable Unavailable [facility] RENDON T, RENDON T Unavailable Unavailable AMIN, AMIN Unavailable Unavailable AMIN GRAEME, AMIN GRAEME Unavailable Unavailable Kenya LEBLANC COOPER, Unavailable Unavailable Kenya CYR, KLARISSA Unavailable Unavailable KLARISSA KASSANDRA, Unavailable Unavailable KLARISSA KASSANDRA EUNICE CYR, Unavailable Unavailable EUNICE CYR [facility] Unavailable Unavailable [facility] Unavailable Unavailable [facility]ENTER, [facility] MARTI, MARTI Unavailable Unavailable MARTI GRE, MARTI Unavailable Unavailable GRE [facility] Unavailable Unavailable ASSOCIAT, [facility] DAUKAS ROSALES, DAUKAS Unavailable Unavailable ROSALES MARCOS SMALLWOOD, Unavailable Unavailable MARCOS SMALLWOOD ROBERT A, Unavailable Unavailable ODELL REAL RAYMOND, DEPA, Unavailable Unavailable SOCORRO PERES, Unavailable Unavailable SOCORRO DAWSON CLAUDIA, CLAUDIA Unavailable Unavailable JONAH MAT, JONAH MAT Unavailable Unavailable [facility] Unavailable [facility], [facility] BROCK HAMILTON, BROCK Unavailable Unavailable BROCK RODRIGUEZ Unavailable Unavailable ALFONSO PATRICK, Unavailable Unavailable PSCDARNELL, PSC ESPOSITO DORIAN, ESPOSITO Unavailable Unavailable DORIAN GUALBERTO SCO, GUALBERTO SCO Unavailable Unavailable NICOL SIMMONS, Unavailable Unavailable NICOL SIMMONS GAINEY Unavailable Unavailable MIKAL ELVIE BLACKMAN, Unavailable Unavailable ELVIE BLACKMAN [facility] Unavailable Unavailable [facility], [facility] Unavailable Unavailable HOSPITA, [facility], Unavailable Unavailable [facility] CHARLES PERERA MD, Unavailable Unavailable ODELL PEREZ MD, Unavailable Unavailable ODELL BANEGAS GRAY ROB Unavailable Unavailable GREGONIS, GREGONIParul Unavailable Unavailable NIKKI RHO, NIKKI Unavailable Unavailable RHO NIKKI, RUBÉN G, Unavailable Unavailable NIKKI, RUBÉN G MART CEVALLOS Unavailable Unavailable HARPEL OSNJA, HARPEL Unavailable Unavailable SONJA GERRY GARRETT Unavailable Unavailable LESLEY HERNÁNDEZ, Unavailable Unavailable LESLEY HERNÁNDEZ [facility] Unavailable Unavailable INC, [facility] INC [facility] Unavailable Unavailable HOSPITAL, [facility] Unavailable Unavailable HOSPITAL P, [facility] HOSPITAL P PATTERSON MANNY, PATTERSON MANNY Unavailable Unavailable [facility], Unavailable Unavailable [facility] SMALL III, SMALL Unavailable Unavailable III ROMAN-ALEXANDRU, Unavailable Unavailable FRACISCO LEE, ROSA RODGERS JR, KARLUK JR Unavailable Unavailable ADRIANA MICHELE, Unavailable Unavailable ADRIANA MICHELE [facility] Unavailable Unavailable GROUP PS, [facility] Unavailable Unavailable [facility]ING [facility], [facility], Unavailable Unavailable [facility] KOSTELIC, LAURIE K, Unavailable Unavailable KOSTELIC, LAURIE K [facility] Unavailable Unavailable HOLDINGS, [facility], Unavailable Unavailable [facility] JAIR JR, JAIR JR Unavailable Unavailable JAIR JR DWI, JAIR Unavailable Unavailable JR DWI JAIR, YSABEL E, Unavailable Unavailable JAIR, YSABEL E ERSKINE 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, Unavailable Unavailable [facility] 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, [facility] LOCKSTADT, LOCKSTADT Unavailable Unavailable DUONG ELIU, DUONG Unavailable Unavailable ELIU Pete Blackman MD, Unavailable Unavailable CITLALLI Smith MD, MAIR, Unavailable Unavailable THOMAS ROLAND Unavailable Unavailable GILLIAN GRE, Unavailable Unavailable GILLIAN GRE GILLAIN GRE, Unavailable Unavailable G[facility] GRE [facility] Unavailable Unavailable SERVICES, [facility] RIA WINSLOW, RIA Unavailable Unavailable WINSLOW HAYDEN JAM, Unavailable Unavailable HAYDENALICIA HAYDEN JAM, Unavailable Unavailable HAYDENALICIA RAMOS JOHN, RICHARD Unavailable Unavailable JOHN MULBERRY, MARIELY T, Unavailable Unavailable MULBERRY, MARIELY T [facility] Unavailable Unavailable [facility], [facility] Unavailable Unavailable MRI [facility], [facility] MRI [facility] Maryellen ROME, Unavailable Unavailable Maryellen ROME JOHN, Unavailable Unavailable FLORENTIN STEWART ÁNGEL, MANLEY ÁNGEL Unavailable Unavailable [facility], Unavailable Unavailable [facility], [facility] Unavailable Unavailable LAB, [facility] PETTEKimberly HAMILTON, PETTEY Unavailable Unavailable JAM CALVERT DOMINIQUE, CALVERT DOMINIQUE Unavailable Unavailable [facility] Unavailable Unavailable INCORPORAT, [facility] Unavailable Unavailable INCORPORAT, [facility] GLEN, DEVONTE, GLEN, Unavailable Unavailable DEVONTE RENUSCH, RENUSCH Unavailable Unavailable FUENTES, FUENTES Unavailable Unavailable MOUSTAPHA DEN, MOUSTAPHA Unavailable Unavailable DEN SCALF ELIU, SCALF ELIU Unavailable Unavailable SCIFRES ANG, SCIFRES Unavailable Unavailable ANG SHASHY HARESH, SHASHY Unavailable Unavailable HARESH HOROWITZ CIARRA, HOROWITZ CIARRA Unavailable Unavailable SOKAN BAB, SOKAN BAB Unavailable Unavailable [facility], [facility] Unavailable Unavailable EMERGENCY SERVI, [facility] EMERGENCY SERVI [facility], Unavailable Unavailable [facility] ARCHER KAHLIL, Unavailable Unavailable ARCHER KAHLIL PARMJIT ELIU, PRAMJIT Unavailable Unavailable [facility], Unavailable Unavailable [facility], [facility] Unavailable Unavailable [facility] Unavailable Unavailable [facility]591, [facility] Unavailable Unavailable [facility], [facility] WEHRMAN III CHERYL, Unavailable Unavailable WEHRMAN III CHERYL LAZARUS LOUISE, LAZARUS LOUISE Unavailable Unavailable LUIS SOPHIE, LUIS Unavailable Unavailable SOPHIE ZIEGLER, ZIEGLER Unavailable Unavailable ZIEGLER MAR, ZIEGLER MAR Unavailable Unavailable ZOHAIB MAT, ZOHAIB MAT Unavailable Unavailable MELISSA PENNY, Unavailable Unavailable MELISSA PENNY Purpose Continuity of Care Document - 11-07-2007 through 2016 Problems Code Diagnosis DOS Provider Status I10 ESSENTIAL 06-27-2017 [facility] PRIMARY LAR & SLEEP HYPERTENSIO CONSU N R001 BRADYCARDIA 06-27-2017 [facility] LAR & SLEEP UNSPECIFIED CONSU Y60861 ENCOUNTER 06-27-2017 [facility] FOR LAR & SLEEP PREPROCEDUR CONSU AL CARIOVASCUL AR EXAM J301 ALLERGIC 06-22-2017 [facility] RHINITIS PARTNERS OF DUE TO [place] POLLEN J3081 ALLERG 06-22-2017 [facility] RHINITIS PARTNERS OF D/T ANIMAL [place] CAT DOG HAIR & DANDER J3089 OTHER 06-22-2017 [facility] ALLERGIC PARTNERS OF RHINITIS [place] E785 HYPERLIPIDE 06-17-2017 [facility] UNSPECIFIED HOSPITAL N390 URINARY 06-17-2017 [facility] INFECTION HOSPITAL SITE NOT SPECIFIED R5383 OTHER 06-17-2017 [facility] G75290 ENCOUNTER 06-17-2017 [facility] AL EXAMINATION R0602 SHORTNESS 06-03-2017 [facility] [place] OF BREATH RADIOLOGY R072 PRECORDIAL 06-03-2017 [facility] [place] PAIN RADIOLOGY M1711 UNILATERAL 06-02-2017 [facility] OSTEOARTHRI S PSC TIS RIGHT KNEE E875 HYPERKALEMI 05-31-2017 [facility] A LAR & SLEEP CONSU A048 OTHER 05-06-2017 [facility] INTESTINAL INFECTIONS R05 COUGH 05-03-2017 [facility] R24998 MIGRAINE 04-15-2017 NEW UNS NOT [place] INTRACT W/O CLINIC PSC STATUS MIGRAINOSUS J309 ALLERGIC 04-15-2017 NEW RHINITIS [place] UNSPECIFIED CLINIC PSC J329 CHRONIC 04-15-2017 NEW SINUSITIS [place] UNSPECIFIED CLINIC PSC J342 DEVIATED 04-15-2017 NEW NASAL [place] SEPTUM CLINIC PSC R51 HEADACHE 04-15-2017 NEW [place] [facility]IC PSC J4540 MODERATE 03-30-2017 [facility] PERSISTENT REGIONAL ASTHMA PHYSICIAN UNCOMPLICAT PRA ED K219 GASTRO-ESOP 03-30-2017 [facility] H REFLUX REGIONAL DISEASE PHYSICIAN WITHOUT PRA ESOPHAGITIS R0789 OTHER CHEST 03-30-2017 [facility] PAIN REGIONAL PHYSICIAN PRA R61 GENERALIZED 03-30-2017 [facility] REGIONAL HYPERHIDROS PHYSICIAN IS PRA G4710 HYPERSOMNIA 02-07-2017 [facility] LAR & SLEEP UNSPECIFIED CONSU J438 OTHER 02-07-2017 [facility] EMPHYSEMA LAR & SLEEP CONSU B9681 HELICOBACTE 02-02-2017 [facility] PYLORI CLAIRE & CAUSE OF DZ DUBILIER CLASSIFIED ELSW B76016 UNSPECIFIED 02-02-2017 [facility] ED K317 POLYP OF 02-02-2017 [facility] STOMACH AND CLAIRE & DUODENUM DUBILIER K3189 OTHER 02-02-2017 [facility] DISEASES OF CLAIRE & STOMACH DUBILIER AND DUODENUM R079 CHEST PAIN 02-02-2017 [place] UNSPECIFIED [facility] R1310 DYSPHAGIA 02-02-2017 [place] UNSPECIFIED [facility] A60926 OTHER LONG 02-02-2017 [facility] TERM [facility] DRUG THERAPY G479 SLEEP 01-25-2017 [facility] U[facility]PITAL R0683 SNORING 01-25-2017 [facility] J209 ACUTE 01-09-2017 [facility] BRONCHITIS N EMERGENCY UNSPECIFIED PHYS R509 FEVER 01-09-2017 [facility] [place] UNSPECIFIED RADIOLOGY H24474 PERSONAL 01-09-2017 [facility] HISTORY OF [facility] CALCULI Z886 ALLERGY 01-09-2017 [place] STATUS TO [facility] AGENT STATUS R1013 EPIGASTRIC 12-31-2016 [facility] I49482 UNSPECIFIED 12-28-2016 [facility] LAR & SLEEP WITH ACUTE CONSU EXACERBATIO N R0600 DYSPNEA 12-13-2016 [facility] UNSPECIFIED [facility] [place] R9439 ABNORMAL 12-13-2016 [facility] RESULT [facility] CARDIOVASCU MEDICAL LR FUNCTION GROUP STUDY Z8249 FAMILY HX 12-09-2016 [facility] ISCHEMIC LAR & SLEEP HRT DZ OTH CONSU DZ CIRC SYSTEM M4806 SPINAL 12-03-2016 [facility] STENOSIS ORTHOPAEDIC LUMBAR S PSC REGION E7800 PURE 11-24-2016 [facility] HYPERCHOLES MEM HOS[facility] TEROLEMIA INC UNSPECIFIED M545 LOW BACK 11-12-2016 [facility] PAIN ORTHOPAEDIC S PSC B373 CANDIDIASIS 11-02-2016 [facility] AND OF VULVA MAGED, AND VAGINA PSC F05541 CHRONIC 11-02-2016 [facility] AND MIGRAINE MAGED, W/O AURA PSC INTRACT W/O STAT MIGR J0190 ACUTE 11-02-2016 [facility] SINUSITIS MAGED, UNSPECIFIED PSC Z6832 BODY MASS 11-02-2016 [facility] AND INDEX BMI MAGED, 32.0-32.9 PSC ADULT A54877 PRESENCE OF 10-05-2016 [facility] 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 U48077 PRESENCE OF 10-05-2016 [facility] LEFT [facility]THOPA[facility]IC ARTIFICIAL S PSC KNEE JOINT J680 BRONCHITIS 09-28-2016 [facility] & PNEUMONIT PHYSICIANS, D/T CHEM [facility] GASE FUME VAPOR F5421CD TOXIC 09-28-2016 [facility] EFFECT [facility] P ACCIDENTAL INIT ENC Y77000 UNS PLACE 09-28-2016 [facility] UNS [facility] P PLACE OF OCCUR EXT G4489 OTHER 09-08-2016 [facility] HEADACHE PARTNERS OF SYNDROME [place] J0180 OTHER ACUTE 09-08-2016 [facility] SINUSITIS PARTNERS OF [place] J4530 MILD 09-08-2016 [facility] PERSISTENT PARTNERS OF ASTHMA [place] UNCOMPLICAT ED L97170 SPONDYLOSIS 08-05-2016 [facility] W/O MEDICAL MYELOPATH/R IMAGING ASS ADICULPATHY LS RGN M5126 OTH 08-05-2016 [facility] INTERVERTEB MEDICAL RAL DISC IMAGING ASS DISPLACEMEN T LUMBAR RGN M1712 UNILATERAL 07-22-2016 [facility] OSTEOARTHRI S PSC TIS LEFT KNEE H1013 ACUTE 07-16-2016 [facility] TIS BILATERAL Z1231 ENCOUNTER 05-12-2016 [facility] SCREENING MEDICAL MAMMO MALIG IMAGING ASS NEOPLASM BREAST N951 MENOPAUSAL 04-29-2016 [facility] AND FEMALE PHYSICIANS CLIMACTERIC GROUP STATES M79899 ENCOUNTER 04-29-2016 [facility] HOTEL CLERK EXAM PHYSICIANS GENERAL RTN GROUP W/O ABNORMAL FIND Z1212 ENCOUNTER 04-29-2016 [facility] SCREENING PHYSICIANS MALIGNANT GROUP NEOPLASM RECTUM Z7253 HIGH RISK 04-29-2016 [facility] BISEXUAL PHYSICIANS BEHAVIOR GROUP G8918 OTHER ACUTE 04-24-2016 [facility] PHYSICIANS, POSTPROCEDU PLLC RAL PAIN V79428 PAIN IN 04-24-2016 [facility] LEFT KNEE MEM HOS[facility] INC M179 OSTEOARTHRI 04-14-2016 [place] TIS OF KNEE ANESTHESIA ASSOCIAT UNSPECIFIED Z0001 ENCOUNTER 04-06-2016 [facility] MEDICAL INCORPORAT EXAM W/ABNORMAL FIND M1611 UNILATERAL 03-30-2016 [facility] OSTEOARTHRI [facility] TIS RIGHT HIP H6000 ABSCESS OF 02-25-2016 [facility] EXTERNAL PHYSICIANS, EAR PLLC UNSPECIFIED EAR H6003 ABSCESS OF 02-25-2016 [facility] EXTERNAL [facility] EAR INC BILATERAL E69715J OTH TEAR 12-17-2015 [facility] [place] [facility] MENISCUS S PLC CURR INJ LT KNEE SBSQT ENC J029 ACUTE 12-02-2015 [facility] UNSPECIFIED J4520 MILD 11-28-2015 [facility] INTERMITTEN PARTNERS OF T ASTHMA [place] UNCOMPLICAT ED Z8739 PERSONAL HX 09-22-2015 [facility] MUSCULOSKEL INC SYS&CONNECT V TISS I66231 CHONDROMALA 08-19-2015 [facility] ANDREA LEFT COMMUNTIY KNEE HOSPITA T32353M OTH TEAR 08-19-2015 [facility] MED ANESTHESIA MENISCUS GROUP PS CURR INJ LT KNEE INIT ENC B26818 MIGRAINE 07-04-2015 [facility] W/O AURA NEUROLOGY INTRACT W/O STAT MIGRAINOSUS 1319 ALLERGIC 07-02-2015 [facility] RHINITIS PARTNERS OF DUE TO [place] POLLEN 4772 ALLERGIC 07-02-2015 [facility] RHINITIS PARTNERS OF DUE TO [place] ANIMAL HAIR AND DANDER 4792 ALLERGIC 07-02-2015 [facility] RHINITIS PARTNERS OF DUE TO [place] OTHER ALLERGEN 97968 ASTHMA, 06-13-2015 [facility] UNSPECIFIED PARTNERS OF , [place] UNSPECIFIED STATUS 7840 HEADACHE 06-13-2015 [facility] PARTNERS OF [place] 4720 CHRONIC 05-23-2015 [place] [address] OSTEOARTHRO 05-21-2015 [facility] [place] SIS UNSPEC ORTHOPAEDIC WHETHER S PLC GEN/LOC LOWER LEG 92983 CHRONIC 04-03-2015 [facility] MIGRAINE NEUROLOGY W/O AURA W/O INTRACTABLE W/O SM V7612 OTHER 03-31-2015 [facility] SCREENING MEDICAL MAMMOGRAM IMAGING ASS 6272 SYMPTOMATIC 03-21-2015 CHARLES PERERA MD MENOPAUSAL/ FEMALE CLIMACTERIC STATES V692 PROBLEMS 03-21-2015 CHARLES Bojorquez RELATED TO DILMA PEREZ HIGH-RISK SEXUAL BEHAVIOR V7231 ROUTINE 03-21-2015 CHARLES Bojorquez GYNECOLOGIC DILMA PEREZ AL EXAMINATION V7641 SCREENING 03-21-2015 CHARLES Bojorquez FOR DILMA PEREZ MALIGNANT NEOPLASM OF THE RECTUM 4019 UNSPECIFIED 03-08-2015 [facility] ESSENTIAL [facility] HYPERTENSIO INC N 6820 CELLULITIS 03-08-2015 [facility] AND ABSCESS MEM HOSP OF FACE INC 91105 NEW DAILY 03-06-2015 [facility] PERSISTENT COMMUNTIY HEADACHE HOSPITA 7920 NONSPECIFIC 03-06-2015 [facility] ABNORMAL CLAIRE & FINDING IN [facility] [place] [address] PAIN IN 03-04-2015 [facility] JOINT, COMMUNTIY LOWER LEG HOSPITA V571 OTHER 02-07-2015 [facility] PHYSICAL MEM [facility]OS[facility] THERAPY INC 63591 MIGRAINE 02-04-2015 [facility] [place] UNSP W/O RADIOLOGY INTRACT W/O STATUS MIGRAINOSUS 7231 CERVICALGIA 01-29-2015 [facility] NEUROLOGY 72278 PRIMARY 10-01-2014 [facility] LOCALIZED TECHNOLOGIE OSTEOARTHRO S INC SIS LOWER LEG 7295 PAIN IN 10-01-2014 [facility] SOFT TECHNOLOGIE TISSUES OF S INC LIMB 24068 PAIN IN 09-10-2014 [facility] [place] JOINT RADIOLOGY PELVIC REGION AND THIGH 53801 DISORDER OF 09-10-2014 [place] BONE AND MSO, [employer] CARTILAGE UNSPECIFIED 11345 GENU VARUM 09-10-2014 [employer] V5869 LONG-TERM 09-10-2014 [facility] (CURRENT) COMMUNITY USE OF HOSPITA OTHER MEDICATIONS 57560 UNSPECIFIED 08-17-2014 [facility] SUBJECTIVE GRE VISUAL DISTURBANCE 19197 OTHER 08-17-2014 [facility] VISUAL GRE DISTORTIONS AND ENTOPTIC PHENOMENA 53278 UNSPECIFIED 08-17-2014 [place] [address] SCLERAL 08-17-2014 [facility] ECTASIA GRE 19548 CHONDROMALA 08-01-2014 [facility] ANDREA PHYSICIANS GROUP V0481 NEED 07-16-2014 [facility] PROPHYLACTI PHARMACY C #591 VACCINATION &INOCULATIO N FLU 17057 RESTLESS 05-16-2014 MAG[facility] JANE LEGS SYNDROME 30675 INSOMNIA 05-16-2014 MAG[facility]ANE UNSPECIFIED 7172 DERANGEMENT 04-08-2014 [facility] OF MEM HOSP POSTERIOR INC HORN OF MEDIAL MENISCUS 27826 DERANGEMENT 04-08-2014 [facility] OF MEM HOSP ANTERIOR INC HORN OF LATERAL MENISCUS 33833 PLICA 04-08-2014 [facility] SYNDROME PHYSICIANS GROUP 8360 TEAR MEDIAL 04-08-2014 [facility] CARTILAGE PHYSICIANS OR MENISCUS GROUP KNEE CURRENT 8361 TEAR 04-08-2014 [facility] LATERAL MEM HOSP CARTILAGE INC OR MENISCUS KNEE CURRENT 2724 OTHER AND 04-03-2014 [facility] UNSPECIFIED [facility] P HYPERLIPIDE STEPH 6829 CELLULITIS 03-28-2014 MAGED JANE AND ABSCESS OF UNSPECIFIED SITE 58819 ABDOMINAL 03-28-2014 MAGED JANE PAIN OTHER SPECIFIED SITE 6869 UNSPEC 03-05-2014 [facility] LOCAL COMMUNITY INFECTION HOSPITA SKIN&SUBCUT ANEOUS TISSUE 7048 OTHER 03-05-2014 [facility] SPECIFIED COMMUNITY DISEASE OF HOSPITA HAIR&HAIR FOLLICLES 85295 TOXIC 03-05-2014 [facility] EFFECT OF COMMUNITY OTHER HOSPITA SUBSTANCES 9953 ALLERGY 03-05-2014 [facility] UNSPECIFIED N EMERGENCY NOT SERVI ELSEWHERE CLASSIFIED 87977 DEGEN 03-04-2014 [facility] LUMBAR/LUMB MEDICAL OSACRAL IMAGING ASS INTERVERTEB RAL DISC 7242 LUMBAGO 03-04-2014 [facility] 8472 LUMBAR 03-04-2014 [facility] SPRAIN AND N EMERGENCY STRAIN PHYS 90468 CONTUSION 03-04-2014 [facility] OF KNEE N EMERGENCY PHYS E8888 OTHER FALL 03-04-2014 [facility] N EMERGENCY PHYS 44127 SYNOVIAL 02-22-2014 [facility] CYST OF PHYSICIANS POPLITEAL GROUP SPACE 69334 OTHER 01-25-2014 [place] MALAISE AND 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, 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 06301 LOSS OF 01-25-2014 [place] WEIGHT 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, PSC 6279 UNSPECIFIED 12-27-2013 [facility] MENOPAUSAL& INC POSTMENOPAU GRIS DISORDER 88832 EFFUSION OF 12-24-2013 [facility] LOWER LEG MEDICAL JOINT IMAGING ASS 784.0 784.0 10-18-2013 [facility] HEADACHE [facility] V14.8 V14.8 10-18-2013 [facility] HX-DRUG [facility] ALLERGY [facility] V148 PERSONAL 10-18-2013 [facility] HISTORY [facility]OS[facility] ALLERGY OTH INC SPEC MEDICINAL AGTS 81828 MASTODYNIA 06-19-2013 [facility] HOSP INC 6101 DIFFUSE 06-14-2013 CHARLES PERERA MD MASTOPATHY 93434 OTHER SIGN 06-14-2013 CHARLES PERERA MD IN BREAST 7243 SCIATICA 06-06-2013 [place] [facility] 7393 NONALLOPATH 06-06-2013 [place] IC LESION CHIROPRACTI OF LUMBAR C CENTE REGION NEC 7394 NONALLOPATH 06-06-2013 [place] IC LESION CHIROPRACTI OF SACRAL C CENTE REGION NEC 7395 NONALLOPATH 06-06-2013 [place] IC LESION CHIROPRACTI OF PELVIC C CENTE REGION NEC 08016 CHRONIC 05-18-2013 [facility] MIGRAINE NEUROLOGY W/O W/INTRACTAB LE W/O SM 470 DEVIATED 04-18-2013 [facility] NASAL COMMUNITY SEPTUM HOSPITA 4739 UNSPECIFIED 04-18-2013 [place] SINUSITIS ANESTHESIA GROUP PS 4780 HYPERTROPHY 04-18-2013 [facility] OF NASAL COMMUNITY TURBINATES HOSPITA 08970 OTHER 04-18-2013 [facility] DISEASES OF COMMUNITY NASAL HOSPITA CAVITY AND SINUSES V7283 OTHER 04-12-2013 [facility] SPECIFIED COMMUNITY PRE-OPERATI HOSPITA VE EXAMINATION 7391 NONALLOPATH 03-02-2013 [place] IC LESION CHIROPRACTI OF CERVICAL C CENTE REGION NEC 73000 CHRONIC 2013 [facility] TENSION JAM TYPE HEADACHE 75911 SENILE 2013 [facility] RETICULAR JAM DEGENERATIO N PERIPHERAL RETINA 54928 DECREASED 12-08-2012 [place] [address] CONTUSION 11-11-2012 [facility] BACK EMERGENCY SERVICES 7244 THORACIC/JANINE 09-01-2012 [facility]RA SERVICES DICULITIS UNSPEC 7202 SACROILIITI 08-07-2012 [place] S NOT CHIROPRACTI ELSEWHERE C CENTE CLASSIFIED 57991 DISRUPTION 08-03-2012 [facility] EXTERNAL REFERNCE OPERATION LABORATORIE SURGICAL S WOUND 7933 NONSPECIFIC 07-19-2012 [place] ABN FINDNG CHIROPRACTI RAD&OTH C LEIGHE EXAM BILARY TRCT 3558 UNSPECIFIED 07-04-2012 [facility] MONONEURITI S OF LOWER LIMB 8479 SPRAIN AND 07-04-2012 [facility] STRAIN OF UNSPECIFIED SITE OF BACK 5589 OTH&UNSPEC 05-16-2012 [facility] NONINFECTIO EMERGENCY US SERVICES GASTROENTER ITIS&COLITI S 45159 ABDOMINAL 05-16-2012 [facility] [place] PAIN, RADIOLOGY UNSPECIFIED SITE V145 PERSONAL 05-16-2012 [facility] HISTORY OF COMMUNITY ALLERGY TO HOSPITAL NARCOTIC AGENT 7094 FOREIGN 05-01-2012 [facility]GENC[facility] GRANULOMA SERVICES SKIN&SUBCUT ANEOUS TISSUE 7296 RESIDUAL 05-01-2012 [facility] IN [facility]AGING ASS SOFT TISSUE 8930 OPEN WOUND 05-01-2012 [facility] TOE WITHOUT EMERGENCY MENTION SERVICES COMPLICATIO N E9179 OTHER 05-01-2012 [facility] STRIKING EMERGENCY AGAINST SERVICES W/WO SUBSEQUENT FALL V065 NEED 05-01-2012 [facility] VACCINATION W/TETANUS-D IPHTH 4619 ACUTE 01-05-2012 [facility] SINUSITIS, UNSPECIFIED 4779 ALLERGIC 01-05-2012 [facility] RHINITIS CAUSE UNSPECIFIED 43330 NON-HEALING 11-19-2011 [facility] WOUND NEC 00318 DISRUPTION 11-16-2011 [facility] UNSPECIFIED 83068 PAIN IN 10-11-2011 [facility] [place] [facility]INT, ORTHOPAEDIC ANKLE AND S PLC FOOT 6918 OTHER 09-17-2011 [facility] DERMATITIS AND RELATED CONDITIONS 7820 DISTURBANCE 09-10-2011 [place] OF SKIN MEDICAL SENSATION IMAGING ASS E8889 UNSPECIFIED 06-22-2011 [facility] [place] FALL RADIOLOGY 8792 OPEN WOUND 04-20-2011 [place] [facility] ANT WITHOUT HOSPITAL MENTION COMP 73097 OTHER 04-20-2011 [facility] [place] POSTOPERATI RADIOLOGY VE INFECTION NEC 57526 UNSPECIFIED 03-10-2011 [facility] URETHRITIS EMERGENCY SERVICES 3569 UNSPEC 02-02-2011 [facility] PERIPHERAL NEUROPATHY 32136 CALCANEAL 01-14-2011 [facility] [place] SPUR RADIOLOGY 31544 HEMATURIA 01-12-2011 [facility] 7880 RENAL COLIC 01-12-2011 [facility] 9176 FOOT&TOE 08-31-2010 [facility] FB W/O COMMUNITY SOL OPN HOSPITA WND&W/O MENTION INF 71881 ERYTHEMA 06-03-2010 [facility] EMERGENCY OF BREAST SERVICES 17305 ERYTHMA DUE 06-03-2010 [facility] WALL EXCL[place] INC BREAST&[place] 62051 ERYTHEMA 06-03-2010 [facility]ERGENCY OF SERVICES ABDOMINAL WALL 23071 ERYTHEMA 06-03-2010 [facility]ERGENCY SERVICES UNSPECIFIED SITE LOWER LIMB 25920 ERYTHEMA 06-03-2010 [facility] EMERGENCY OF KNEE SERVICES 77648 ERYTHEMA 06-03-2010 [facility] DUE TO BURN MEM HOSP OF THIGH INC 515 POSTINFLAMM 05-04-2010 [facility] [place] ATORY RADIOLOGY PULMONARY FIBROSIS 7962 ELEVATED BP 05-03-2010 [facility] WITHOUT DX HOSPITA HYPERTENSIO N 8921 OPEN WOUND 05-03-2010 [facility] FOOT EMERGENCY EXCEPT TOE SERVICES ALONE COMPLICATED E915 FOREIGN 05-03-2010 [facility] BODY EMERGENCY ACCIDENTALL SERVICES Y ENTERING OTHER ORIFICE 7862 COUGH 01-28-2010 [facility] [place] RADIOLOGY 71664 REFLUX 12-09-2009 [facility] ESOPHAGITIS SRIDHAR [facility] 25070 ATROPHIC 12-09-2009 PATHOLOGY & GASTRITIS CYTOLOGY WITHOUT LAB MENTION OF HEMORRHAGE 50745 UNS 12-09-2009 [place] GASTRITIS&G ANESTHESIA ASTRODUODIT GROUP PSC IS W/O MENTION HEMORR 5533 DIAPHRAGMAT 12-09-2009 [facility] W/O COMMUNITY MENTION HOSPITAL OBSTRUCTION /GANGREN 07007 CHEST PAIN 12-09-2009 [facility] UNSPECIFIED NKLIN, ROSA 10911 OTHER CHEST 12-09-2009 [facility] 36202 NAUSEA 12-09-2009 [facility] 37845 ABDOMINAL 12-09-2009 [facility] PAIN, NKLIN, EPIGASTRIC ROSA 70555 ESOPHAGEAL 11-28-2009 [facility] PROF SERV 90256 ABDOMINAL 11-28-2009 [facility]IN, [facility]ERG[facility]Y [facility] 99825 UNSPECIFIED 10-06-2009 [facility] , [place]OWER [place]G 79599 OSTEOARTHRO 06-13-2009 [facility] [place] S UNSPEC RADIOLOGY WHETHER GEN/LOC UNSPEC SITE 88055 DIARRHEA 05-09-2009 [facility] 8793 OPEN WOUND 05-09-2009 [facility] WALL ANTERIOR COMPLICATED 9597 INJURY 04-22-2009 [facility] [place] OTHER&UNSPE RADIOLOGY CIFIED KNEE LEG ANKLE&FOOT 7078 CHRONIC 04-03-2009 [facility] OTHER SPECIFIED SITE 6822 CELLULITIS 04-02-2009 [facility], AND ABSCESS ALACIA L OF TRUNK 74411 OTHER 03-01-2009 [facility] DYSRHYTHMIA S 7851 PALPITATION 03-01-2009 [facility] 5718 OTHER 02-26-2009 [facility] LIVER DISEASE 8795 OPEN WOUND 02-26-2009 [facility], OF ALACIA L ABDOMINAL WALL LATERAL COMPLICATED V762 SCREENING 02-05-2009 PATHOLOGY & FOR CYTOLOGY MALIGNANT LAB NEOPLASM OF THE CERVIX 8794 OPEN WOUND 12-25-2008 [facility] OF ABD WALL [place] INC LATERAL WITHOUT MENTION COMP 84677 CHRONIC 11-20-2008 [facility] DUE TO PAIN TRAUMA MEDICIINE PSC 7246 DISORDERS 11-20-2008 [facility] OF SACRUM PAIN MEDICIINE PSC 7265 ENTHESOPATH 11-20-2008 [facility] Y OF HIP PAIN REGION MEDICIINE PSC 66903 PAIN IN 10-30-2008 [facility] [place] JOINT, RADIOLOGY SHOULDER REGION 3550 LESION OF 09-13-2008 [facility] PSC 69524 DISPLCMT 08-20-2008 [facility] LUMBAR RADIOLOGY 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 7213 LUMBOSACRAL 05-03-2008 [facility] 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 6927 [facility] 03-20-2008 [facility] DERMATITIS& MEM HOSP OTH ECZEMA INC DUE SOLAR RADIATION 82766 OTHER 03-15-2008 [facility] AMYLOIDOSIS LESLEY P 3384 CHRONIC 03-15-2008 [facility] PAIN [facility] Abdul SYNDROME 7292 UNSPECIFIED 02-12-2008 [facility] NEURITIS AND RADICULITIS 7226 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-2007 [facility] INTERVERTEB RAL DISC SITE UNSPEC 48833 SPONDYLOSIS 11-21-2007 [facility] SITE W/O MENTION MYELOPATHY Allergies, Adverse Reactions, Alerts Type Drug Allergy Adverse Reaction to Substance Substance Reaction Severity Codeine I-ITCHING Intermediate Clinical Alert Notifications Alert Asthma: no influenza vaccine in the last 365 days Medications Na ND Rx Da Fi Fi Am Da Di Ph RX Ph St me C No te ll ll ou ys ag ar # ys at rm s nt no ma ic us Or Da si cy ia de te s n re d KE 00 01 0 No TO 40 -1 RO 93 6- Lo LA 79 20 ng C 60 14 er 60 1 Ac MG ti /2 ve ML AL DC 00 01 0 No OM 64 -1 ET 11 6- Lo PERSAUD 49 20 ng ZI 53 14 er NE 5 Ac 25 ti ve MG /M L AM PU L Immunization Name Date Rout CVX Reac Dose Comm Prov Is Faci e tion ent ider Refu lity Give sed n IIV3 10-1 140 WAL- No WAL- 4-20 MART MART VACC 14 PHAR PHAR PRES CHARLEY CHARLEY ERVA TIVE #591 #591 FREE 0.5 ML DOSA GE IM USE TDAP 07-3 115 ROHINI No ROHINI 0-20 OLEKSANDR OLEKSANDR VACC 12 MEM MEM INE 7 HOSP HOSP YRS/ INC INC > IM Vital Signs 10-18-2013 23:33 Name Value Interpretat Reference Comment ion Range Body 97.9 [degF] Temperature BP 63 mm[Hg] Diastolic BP Systolic 116 mm[Hg] Heart 71 /min Rate/Pulse O2% 99 % Respiratory 20 /min Rate 10-18-2013 23:29 Name Value Interpretat Reference Comment ion Range Body 97.9 [degF] Temperature BP 63 mm[Hg] Diastolic BP Systolic 116 mm[Hg] Heart 71 /min Rate/Pulse O2% 99 % Respiratory 20 /min Rate Results Labs Lab Lab Date Result Refere Interp Status Commen Order Detail nces retati t Range on Hgb A1c Bld (12-13-2016 11:34) Comment: The [place] [employer] recommends maintenance of Hemoglobin A1C at 7.0% or lower. Goals for Hemoglobin A1C reduction may need to be modified if hypoglycemia is a problem. Hgb A1c 5.70 % 4.80-5. complet MFr 017 60 ed Bld 11:34 Lipid pnl with direct LDL SerPl (12-13-2016 11:34) Comment: Cholesterol Reference Ranges: Comment: Desirable < 200 mg/dL Comment: Borderline 200-239 mg/dL Comment: High Risk > 239 mg/dL Comment: Comment: Triglyceride Reference Ranges: Comment: Normal < 150 mg/dL Comment: Borderline 150-199 mg/dL Comment: High 200-499 mg/dL Comment: Very High > 499 mg/dL Comment: Comment: HDL Reference Ranges: Comment: Low < 40 mg/dL Comment: High > 59 mg/dL Comment: Comment: LDL Reference Ranges: Comment: Optimal < 100 mg/dL Comment: Near Optimal 100-129 mg/dL Comment: Borderline 130-159 mg/dL Comment: High 160-189 mg/dL Comment: Very High > 189 mg/dL Articho 113 0-130 complet ke IgE 017 mg/dL ed Qn 11:34 HDLc 74 40-60 complet SerPl-m 017 mg/dL ed Cnc 11:34 Trigl 185 0-150 complet SerPl-m 017 mg/dL ed Cnc 11:34 Cholest 209 0-200 complet 017 mg/dL ed SerPl-m 11:34 Cnc Comp Metab 1998 Pnl SerPl (12-13-2016 11:34) Comment: National Kidney [employer] Guidelines Comment: Comment: Stage Description GFR Comment: 1 Normal or High 90+ Comment: 2 Mild decrease 60-89 Comment: 3 Moderate decrease 30-59 Comment: 4 Severe decrease 15-29 Comment: 5 Kidney failure <15 Anion 7.0 3.0-11. complet Gap3 017 mmol/L 0 ed SerPl-s 11:34 Cnc BUN/Cre 14.3 7.0-25. complet at 017 0 ed SerPl 11:34 Albumin 1.3 1.5-2.5 complet /Glob 017 g/dL ed SerPl 11:34 Globuli 3.2 complet n Ur 017 gm/dL ed Elph-mC 11:34 nc GFR/BSA 89 >60 complet .pred 017 mL/min/ ed SerPl 11:34 1.73 MDRD-Ar VRat Bilirub 0.3 0.3-1.2 complet 017 mg/dL ed SerPl-m 11:34 Cnc ALP 123 U/L 25-100 complet SerPl-c 017 ed Cnc 11:34 AST 13 U/L 0-33 complet SerPl-c 017 ed Cnc 11:34 ALT 03-13-2 10 U/L 7-40 complet SerPl w 017 ed 11:34 P-5'-P- cCnc Albumin 12-13-2 4.00 3.20-4. complet 017 g/dL 80 ed SerPl-m 11:34 Cnc Prot 12-13-2 7.2 5.7-8.2 complet SerPl-m 017 g/dL ed Cnc 11:34 Calcium 12-13-2 9.7 8.7-10. complet 017 mg/dL 4 ed XXX-sCn 11:34 c CO2 12-13-2 28.0 20.0-31 complet SerPl-s 017 mmol/L .0 ed Cnc 11:34 Chlorid 12-13-2 106 99-109 complet e 017 mmol/L ed SerPl-s 11:34 Cnc Potassi 12-13-2 3.5 3.5-5.5 complet um 017 mmol/L ed Bld-sCn 11:34 c Sodium 12-13-2 141 132-146 complet Bld-sCn 017 mmol/L ed c 11:34 Creat 12-13-2 0.70 0.60-1. complet Bld-mCn 017 mg/dL 30 ed c 11:34 BUN 12-13-2 10 9-23 complet Bld-mCn 017 mg/dL ed c 11:34 Glucose 12-13-2 82 70-100 complet 017 mg/dL ed Bld-mCn 11:34 c Procedures Procedure DOS Code Location Performer Comment PROF [facility] 30114 ALLERGY ZIEGLER ALLG 7 PARTNERS IMMNTX X OF [place] W/PR[place] [address] JUDY KIM THYROID [address] [place] [address] NG HORMONE TSH BLOOD 19632 KELSEAFOUZIA ENAMORADOFOUZIA COUNT [address] [place] [address] AUTOMATED PROTHROMB 58584 JUDY KIM IN TIME [address] [place] [address] THROMBOPL 08228 JUDY KIM ASTIN [address] [place] [address] PARTIAL PLASMA/WH OLE BLOOD CUL 30288 JUDY ENAMORADOFOUZIA PRSMPTV 7 [facility] ORGANISM SCRN W/COLONY ESTIMJ ECG 32172 [facility] ROUTINE 7 [facility] W/LEAST 12 LDS TRCG ONLY W/O I&R COLLECTIO 57306 [facility] N VENOUS 7 [facility] VENIPUNCT URE LIPID 79260 [facility] PANEL 7 [facility] COMPREHEN 77506 [facility] SIVE 7 [facility] HOSPITAL PANEL URNLS DIP [address] STICK[facility] HOSPITAL LET REAGENT AUTO MICROSCOP Y HEMOGLOBI 59095 [facility] N 7 [facility] HOSPITAL STEFANO A1C PROF [facility] 28125 ALLERGY ZIEGLER ALLG 7 PARTNERS IMMNTX X OF HLILIARD W/PRV CO ALLGIC XTRCS [facility]XS CT THORAX [address] HOSPITAL T MATERIAL RADIOLOGI 50324 CHAST[facility] ROWEO C 7 EXAMINATI ORTHOPAED ON KNEE 3 ICS PSC VIEWS COLLECTIO 62241 [facility] VENOUS 7 [facility] VENIPUNCT URE BASIC 58722 [facility] METABOLIC [address] [place] [address] [place] [address] [facility] HPYLORI [address] [place] [address] HOSPITAL BRNCDILAT 42898 [facility] RSPSE 7 [facility] HOSPITAL PRE&[place] [address] [facility] DIFFUSING [address] [place] [address] HOSPITAL PLETHYSMO 41106 [facility] GRAPHY [address] [place] [address] HOSPITAL VOLUMES W/WO AIRWAY RESIST PROF [facility] 52424 ALLERGY ZIEGLER ALLG 7 PARTNERS IMMNTX X OF [place] W/PRV CO ALLGIC XTRCS NJXS BLOOD 95423 YAMIL TRIVEDI 7 [facility]ICAL AUTO&AUTO CENTE CENTE DIFRNTL WBC SPMTRY 00179 YAMIL TAYLOR W/VC 7 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 Y CLARA PRA W/WO MXML VOL VNTJ ANTIBODY 04878 YAMIL LOBO BLASTOMYC 7 [facility] CENT ANTIBODY 59478 YAMIL LOBO HISTOPLAS 7 [facility] COLLECTIO 71625 YAMIL LOBO N VENOUS 7 [facility] VENIPUNCT [facility] URE ANTIBODY 14882 YAMIL LOBO ASPERGILL 7 [facility] CENTE PREPJ& 53358 ALLERGY ZIEGLER ALLERGEN 7 PARTNERS IMMUNOTHE OF H[place] 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 PROF SVCS 94664 ALLERGY ZIEGLER ALLG 7 PARTNERS IMMNTX X OF [place] W/[place] [address] [facility] SURG [address] [place] [address] GROSS&MIKAL ROSCOPIC EXAM IMHISTOCH 68083 [facility] EM/CYTCHM [address] [place] [address] ANTIBODY STAIN PROCEDURE PRESSURIZ 28048 [facility] ED/NONPRE [address] [place] [address] INHALATIO N TREATMENT EGD 43634 [facility] TRANSORAL [address] [place] [address] SINGLE/MU LTIPLE POLYSOM 35692 GRAEME AMIN AMIN 6/>YRS 7 MD SLEEP 4/> CONSULTIN ADDL G SRV [place] ATTND POLYSOM 23483 [facility] 6/>YRS 7 [facility] SLEEP 4/> HOSPITAL HOSPITAL ADDL [place] ATTND RADIOLOGI 69086 [facility] C 7 EXAMINATI ORTHOPAED ON KNEE 3 ICS PSC VIEWS INJECTION J1030 [facility]I 7 METHYLPRE ORTHOPAED DNISOLONE ICS PSC ACETATE 40 MG ARTHROCEN 02005 [facility] TESIS 7 ASPIR&/IN ORTHOPAED J MAJOR ICS PSC JT/BURSA W/O US PROF SVCS 63932 ALLERGY ZIEGLER ALLG 7 PARTNERS IMMNTX X OF [place] W/PRV CO ALLGIC XTRCS NJXS IAADIADOO [address] HOSPITAL PRESSURIZ [address]609 JUDY KIM ED/NONPRE 7 [facility] INHALATIO N TREATMENT RADIOLOGI 08807 [facility] [address] HOSPITAL VIEWS FRONTAL&L ATERAL COLLECTIO 32991 [facility] N VENOUS 7 MEM HOS[facility] MEM HOSP BLOOD INC INC VENIPUNCT URE BASIC 16712 [facility] BOJRAS METABOLIC 7 MEM HOS[facility] MEM HOSP PANEL INC INC CALCIUM TOTAL LIPID 69826 [facility]LIM PANEL 7 [facility] COLLECTIO 16386 [facility]LIM N VENOUS 7 [facility] BLOOD [facility] VENIPUNCT URE COMPREHEN 60632 [facility]LIM SIVE 7 [facility] METABOLIC [facility] PANEL HEMOGLOBI 73329 [facility] MUSLIM N 7 [facility]ALTH HEALTH GLYCOSYLA [facility] STEFANO A1C INJECTION J1644 [facility]LIM HEPARIN 7 HEALTH Viragen SODIUM [facility] PER 1000 UNITS INTRDUCR/ C1894 [facility] SHEATH 7 [facility] NOT GUID [facility] INTRACARD EP NON-LASR GUIDE C1769 [facility] WIRE 7 [facility] ERSKINE [place] INJECTION J2250 [facility] MUSLIM 7 [facility] MIDAZOLAM [facility] HCL PER 1 MG LOCM Q9967 [facility]LIM 300-399 7 HEALTH HEALTH MG/ML [facility] IODINE CONCENTRA TION PER ML INJECTION J3010 [facility]LIM FENTANYL 7 [facility] CITRATE [facility] 0.1 MG CATH PLMT 53944 MUSLIM THOMAS L HRT & 7 [facility] MEDICAL W/NJX & GROUP ANGIO IMG S&I CREATINE 70684 JUDY KIM KINASE MB [address] [facility] HOSPITAL ONLY BLOOD 87822 JUDY KIM COUNT 7 [facility] AUTO&AUTO DIFRNTL WBC RADIOLOGI 62387 [facility] [place] C 7 RADIOLOGY EXAMINATI [place] [address] [facility] TROPONIN 7 [facility] JAG BASIC 31732 [facility] METABOLIC 7 [facility] CALCIUM TOTAL FIBRIN 87597 [facility] DGRADJ [address] [facility] D-DIMER QUANTITAT JAG ECG 43751 [facility] ROUTINE 7 [facility] W/LEAST 12 LDS TRCG ONLY W/O I&R LOCM Q9965 [facility]199 [facility] MG/ML ORTHOPAED IODINE ICS PSC CONCENTRA TION PER ML NJX 27228 [facility] DX/THER 7 SBST ORTHOPAED INTRLMNR ICS PSC LMBR/SAC W/IMG GDN INJECTION J1040 [facility] 7 METHYLPRE ORTHOPAED DNISOLONE ICS PSC ACETATE 80 MG PROF SVCS 44135 ALLERGY ZIEGLER ALLG 7 PARTNERS IMMNTX X OF [place] W/PRV CO ALLGIC XTRCS NJXS CV STRS 00784 GRAEME AMIN WAESPE TST 7 XERS&/OR CONSULTIN RX CONT G SRV ECG I&R ONLY NONINVASI 38984 G[facility]E AMIN AMIN VE 7 EAR/PULSE CONSULTIN OXIMETRY G SRV OVERNIGHT MONITOR MYOCARDIA 63253 G[facility] AMIN HALIE L SPECT 7 MULTIPLE CONSULTIN STUDIES G SRV TECHNETIU A9500 [facility] M TC-99M 7 [facility] DX PER STUDY DOSE CV STRS 32843 [facility] TST 7 [facility] XERS&/OR [facility] HOSPITAL RX CONT ECG TRCG ONLY ECHO 32831 GRAEME AMIN AMIN TTHRC R-T 7 2D CONSULTIN W/WOM-MOD G SRV E COMPL SPEC&[place] [address] [facility] THYROID 7 MEM HOS[facility] MEM HOSP STIMULATI INC INC NG HORMONE TSH LIPID 61221 [facility] PANEL 7 MEM HOS[facility] MEM HOSP INC INC COLLECTIO 60234 [facility] N VENOUS 7 [facility] BLOOD INC INC VENIPUNCT URE POTASSIUM 51240 [facility] SERUM 7 [facility] PLASMA/WH INC INC OLE BLOOD ECG 02470 JUDY KIM ROUTINE 7 [facility] W/LEAST 12 LDS TRCG ONLY W/O I&R THER 08327 JUDY RODGERS JR PROPH/DX 7 [facility] PUSH SINGLE/1S T SBST/DRUG COMPREHEN 37899 JUDY KIM SIVE 7 [facility] [place] [address] JUDY KIM TROPONIN 7 [facility] JAG RADIOLOGI 40492 [facility] [place] [facility] C EXAM 7 RADIOLOGY CHEST 2 VIEWS FRONTAL&L ATERAL BLOOD 71421 JUDY KIM COUNT 7 [facility] AUTO&AUTO DIFRNTL WBC INJECTION J1040 [facility] METHYLPRE ORTHOPAED DNISOLONE ICS PSC ACETATE 80 MG NJX 45177 [facility] DX/THER 7 SBST ORTHOPAED INTRLMNR ICS PSC LMBR/SAC W/IMG GDN PROF [facility] 09440 ALLERGY ZIEGLER ALLG 7 PARTNERS IMMNTX X OF [place] W/PRV CO ALLGIC XTRCS NJXS URNLS DIP 72500 [facility] MAGED 7 AND STICK/TAB MAGED, LET RGNT PSC NON-AUTO W/O MICRSCP PREPJ& 73947 ALLERGY ZIEGLER ALLERGEN 7 PARTNERS IMMUNOTHE OF [place] 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 PROF SVCS 32851 ALLERGY ZIEGLER ALLG 7 PARTNERS IMMNTX X OF [place] W/PRV CO ALLGIC XTRCS NJXS PROF [facility] 35698 ALLERGY ZIEGLER ALLG 7 PARTNERS IMMNTX X OF [place] W/PRV CO ALLGIC XTRCS NJXS RADIOLOGI 84229 [facility] MARTI C 7 EXAMINATI ORTHOPAED ON KNEE ICS PSC 1/2 VIEWS ECG 05412 [facility] JAIR MARCIAL ROUTINE 6 [facility] W/LEAST P 12 LDS I&R ONLY PRESSURIZ 68976 [facility] ED/NONPRE 6 [facility]OS[facility] SSURIZED INC INC INHALATIO N TREATMENT ECG 93376 [facility] ROUTINE 6 [facility] ECG INC INC W/LEAST 12 LDS TRCG ONLY W/O I&R SPMTRY 90827 ALLERGY ZIEGLER MAR W/VC 6 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 [place] Y CLARA CO W/WO MXML VOL VNTJ PROF SVCS 04986 ALLERGY ZIEGLER MAR ALLG 6 PARTNERS IMMNTX X OF [place] W/PRV CO ALLGIC XTRCS NJXS NITRIC 84859 ALLERGY ZIEGLER MAR OXIDE 6 PARTNERS OF [place] GAS CO DETERMINA TION PROF SVCS 47076 ALLERGY ZIEGLER MAR ALLG 6 PARTNERS IMMNTX X OF [place] W/PRV CO ALLGIC XTRCS NJXS PROF SVCS 74260 ALLERGY ZIEGLER MAR ALLG 6 PARTNERS IMMNTX X OF [place] W/PRV CO ALLGIC XTRCS NJXS PREPJ& 35648 ALLERGY ZIEGLER MAR ALLERGEN 6 PARTNERS IMMUNOTHE OF [place] 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 MRI 40407 [facility] SPINAL 6 MEDICAL CANAL IMAGING LUMBAR ASS W/O CONTRAST MATERIAL 3D 75734 [facility] RENDERING 6 MEDICAL W/INTERP IMAGING & ASS POSTPROCE SS SUPERVISI ON PROF SVCS 22865 ALLERGY ZIEGLER MAR ALLG 6 PARTNERS IMMNTX X OF [place] W/PRV CO ALLGIC XTRCS NJXS PROF SVCS 19504 ALLERGY ZIEGLER MAR ALLG 6 PARTNERS IMMNTX X OF [place] W/PRV CO ALLGIC XTRCS NJXS RADEX 66311 [facility] SPINE 6 GRE LUMBOSACR ORTHOPAED AL 2/3 ICS PSC VIEWS RADIOLOGI 09541 [facility] M[facility]I C 6 GRE EXAMINATI ORTHOPAED ON KNEE ICS PSC 1/2 VIEWS PROF SVCS 78784 ALLERGY ZIEGLER MAR ALLG 6 PARTNERS IMMNTX X OF [place] W/PRV CO ALLGIC XTRCS NJXS OPHTH 85384 [facility] MEDICAL 6 [facility]ISION XM&EVAL CENTER COMPRHNSV ESTAB PT 1/> DETERMINA 20044 [facility] MANNY TION 6 [place] [address] ALLERGY ZIEGLER MAR ALLG 6 PARTNERS IMMNTX X OF [place] W/PRV CO ALLGIC XTRCS NJXS PROF SVCS 98574 ALLERGY ZIEGLER MAR ALLG 6 PARTNERS IMMNTX X OF [place] W/PRV CO ALLGIC XTRCS NJXS NITRIC 19007 ALLERGY ZIEGLER MAR OXIDE 6 PARTNERS OF [place] GAS CO DETERMINA TION SPMTRY 87313 ALLERGY ZIEGLER MAR W/VC 6 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 [place] Y CLARA CO W/WO MXML VOL VNTJ DEMO&/GERMAINE 39715 ALLERGY ALLERGY L OF PT 6 PARTNERS PARTNERS UTILIZ OF [place] OF [place] AERSL CO CO GEN/NEB/I NHLR/[place] [address] ALLERGY ZIEGLER MAR ALLG 6 PARTNERS IMMNTX X OF [place] W/[place] [address] ALLERGY ZIEGLER MAR ALLG 6 PARTNERS IMMNTX X OF [place] W/PRV CO ALLGIC XTRCS NJXS PROF SVCS 96336 ALLERGY ZIEGLER MAR ALLG 6 PARTNERS IMMNTX X OF [place] W/PRV CO ALLGIC XTRCS NJXS RADIOLOGI 09665 [facility] MARTI C 6 GRE EXAMINATI ORTHOPAED ON KNEE ICS PSC 1/2 [place] [address] ALLERGY ZIEGLER MAR ALLG 6 PARTNERS IMMNTX X OF [place] W/PRV CO ALLGIC XTRCS NJXS PROF SVCS 65933 ALLERGY ZIEGLER MAR ALLG 6 PARTNERS IMMNTX X OF [place] W/PRV CO ALLGIC XTRCS NJXS PROF SVCS 57987 ALLERGY ZIEGLER MAR ALLG 6 PARTNERS IMMNTX X OF [place] W/PRV CO ALLGIC XTRCS NJXS SCREENING G0202 [facility] 6 [facility] MAMMOGRAP INC INC HY BENEDICT INCL CAD WHEN PERFORMD - 55829 INDIO INDIO CARLOS 6 [facility] DETECTION INC INC SCREENING MAMMOGRAP HY THERAPEUT 26724 [facility] IC PX 1/> 6 MEM [facility] AREAS INC INC EACH 15 MIN EXERCISES PROF [facility] 51784 ALLERGY ZIEGLER MAR ALLG 6 PARTNERS IMMNTX X OF [place] W/PRV CO ALLGIC XTRCS NJXS THERAPEUT 77458 INDIO INDIO IC PX 1/> 6 [facility] INC EACH 15 MIN EXERCISES THERAPEUT 40585 INDIO INDIO IC PX 1/> 6 [facility] INC INC EACH 15 MIN EXERCISES CYTP C/V 91996 BIO BIO AUTO THIN 6 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 PREPJ SCR IES IES MNL RESCR PHYS IADNA 99151 BIO BIO TRICHOMON 6 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 VAGINALIS IES IES AMPLIFIED PROBE TECH URINLS 46745 [facility] DIP 6 PHYSICIAN PHYSICIAN STICK/TAB S GROUP S GROUP LET REAGNT NON-AUTO MICRSCPY ANNUAL [id number] [facility] HARPEL WELLNESS 6 PHYSICIAN SONJA VST; S GROUP PERSONALI ZED PPS SUBSQT VST THERAPEUT 41809 INDIO BORJAS IC PX 1/> 6 [facility] ARE[facility] INC INC EACH 15 MIN EXERCISES THERAPEUT 96738 INDIO BORJAS IC PX 1/> 6 [facility] ARE[facility] INC INC EACH 15 MIN EXERCISES PROF [facility] 83683 ALLERGY ZIEGLER MAR ALLG 6 PARTNERS IMMNTX X OF [place] W/PRV CO ALLGIC XTRCS NJXS THERAPEUT 63678 INDIO BORJAS IC PX 1/> 6 [facility] INC EACH 15 MIN EXERCISES THERAPEUT 56348 INDIO BORJAS IC PX 1/> 6 [facility] INC INC EACH 15 MIN EXERCISES PREPJ& 46206 ALLERGY ZIEGLER MAR ALLERGEN 6 PARTNERS IMMUNOTHE OF [place] 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 THERAPEUT 38797 INDIO BORJSA IC PX 1/> 6 [facility] ARE[facility] INC INC EACH 15 MIN EXERCISES PHYSICAL 37141 INDIO BORJAS THERAPY 6 [facility] [place] [address] [facility] GUIDANCE 6 ANESTHESI NEEDLE A PLACEMENT ASSOCIAT IMG S&I ARTHRP 05211 CHASTITY KIDD KNEE 6 GRE CONDYLE&P ORTHOPAED LATEAU ICS PSC MEDIAL/LA T CMPRT INJECTION 10426 [facility] SCO 6 ANESTHESI ANESTHETI A C AGENT ASSOCIAT FEMORAL NERVE SINGLE WALKER E0135 [employer] FOLDING 6 [place] [address] ALLERGY ZIEGLER MAR ALLG 6 PARTNERS IMMNTX X OF [place] W/PRV CO ALLGIC XTRCS NJXS ANNUAL G0439 [facility] WELLNESS 6 AND JANE VST; SONY LYNNEI [place] [address] [facility] THYROID 6 DIAGNOSTI DIAGNOSTI STIMULATI CS CS NG INCORPORA INCORPORA HORMONE T T TSH COLLECTIO 30819 [facility] N VENOUS 6 DIAGNOSTI DIAGNOSTI BLOOD CS CS VENIPUNCT INCORPORA INCORPORA URE T T LIPID 90570 [facility] PANEL 6 DIAGNOSTI DIAGNOSTI CS CS INCORPORA INCORPORA T T ECG 19943 JUDY KWANON ROUTINE 6 [facility] W/LEAST 12 LDS TRCG ONLY W/O I&R COLLECTIO 66168 [place] N VENOUS 6 [facility] VENIPUNCT URE URNLS DIP 74649 [place] 6 [facility] LET REAGENT AUTO MICROSCOP Y RADIOLOGI 33436 [facility] [place] NIKKI C EXAM 6 RADIOLOGY RHO CHEST 2 VIEWS FRONTAL&L ATERAL HEMOGLOBI 82122 ANIYAON ANIYAON N 6 [facility] STEFANO A1C PROTHROMB 92828 JUDY KIM IN TIME 6 [facility] BASIC 72979 JUDY KIM METABOLIC [address] [place] [address] CALCIUM TOTAL THROMBOPL 74323 JUDY KIM ASTIN [address] [place] [address] PARTIAL PLASMA/WH OLE BLOOD CUL 60710 JUDY KIM PRSMPTV [address] [place] [address] ORGANISM SCRN W/COLONY ESTIMJ ECG 92436 GRAEME AMIN AMIN GRAEME ROUTINE 6 MD ECG CONSULTIN W/LEAST G SRV 12 LDS I&R ONLY BLOOD 38544 JUDY KIM COUNT [address] [place] [address] AUTO&AUTO DIFRNTL WBC PROF SVCS 23806 ALLERGY ZIEGLER MAR ALLG 6 PARTNERS IMMNTX X OF [place] W/PRV CO ALLGIC XTRCS NJXS PROF SVCS 62710 ALLERGY ZIEGLER MAR ALLG 6 PARTNERS IMMNTX X OF [place] W/PRV CO ALLGIC XTRCS NJXS PROF SVCS 00316 ALLERGY ZIEGLER MAR ALLG 6 PARTNERS IMMNTX X OF [place] W/PRV CO ALLGIC XTRCS NJXS PROF SVCS 64624 ALLERGY ZIEGLER MAR ALLG 6 PARTNERS IMMNTX X OF [place] W/PRV CO ALLGIC XTRCS NJXS PROF SVCS 66601 ALLERGY ZIEGLER MAR ALLG 6 PARTNERS IMMNTX X OF [place] W/PRV CO ALLGIC XTRCS NJXS RADIOLOGI 85587 CHASTITY LUIS C 6 SOPHIE EXAMINATI ORTHOPAED ON KNEE 3 ICS PSC VIEWS INCISION 13595 INDIO [facility] & REMOVAL 6 [facility] FOREIGN INC INC BODY SUBQ TISS COMPL PREPJ& 88126 ALLERGY ZIEGLER MAR ALLERGEN 6 PARTNERS IMMUNOTHE OF [place] 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 PROF SVCS 32566 ALLERGY ZIEGLER MAR ALLG 6 PARTNERS IMMNTX X OF [place] W/PRV CO ALLGIC XTRCS NJXS PROF SVCS 08650 ALLERGY ZIEGLER MAR ALLG 6 PARTNERS IMMNTX X OF [place] W/PRV CO ALLGIC XTRCS NJXS PROF SVCS 53836 ALLERGY ZIEGLER MAR ALLG 6 PARTNERS IMMNTX X OF [place] W/PRV CO ALLGIC XTRCS NJXS PROF SVCS 45305 ALLERGY ZIEGLER MAR ALLG 6 PARTNERS IMMNTX X OF [place] W/PRV CO ALLGIC XTRCS NJXS PROF SVCS 52414 ALLERGY ZIEGLER MAR ALLG 6 PARTNERS IMMNTX X OF [place] W/PRV CO ALLGIC XTRCS NJXS HYALURONA J7324 [facility] N/DERIV 6 [place] [facility] ORTHOVISC ORTHOPAED IA INJ ICS PLC PER DOSE ARTHROCEN 67965 [facility] TESIS 6 [place] [facility] ASPIR&/IN ORTHOPAED J MAJOR ICS PLC JT/BURSA W/O US PROF SVCS 71480 ALLERGY ZIEGLER MAR ALLG 6 PARTNERS IMMNTX X OF [place] W/PRV CO ALLGIC XTRCS NJXS NITRIC 22164 ALLERGY ZIEGLER MAR OXIDE 6 PARTNERS [place] GAS CO DETERMINA TION PROF SVCS 00490 ALLERGY ZIEGLER MAR ALLG 6 PARTNERS IMMNTX X OF [place] W/PRV CO ALLGIC XTRCS NJXS SPMTRY 83072 ALLERGY ZIEGLER MAR W/VC 6 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 [place] Y [place]ARA CO W/WO MXML VOL VNTJ PROF SVCS 64372 ALLERGY ZIEGLER MAR ALLG 6 PARTNERS IMMNTX X OF [place] W/PRV CO ALLGIC XTRCS NJXS PROF SVCS 44494 ALLERGY ZIEGLER MAR ALLG 6 PARTNERS IMMNTX X OF [place] W/PRV CO ALLGIC XTRCS NJXS PROF SVCS 32649 ALLERGY ZIEGLER MAR ALLG 6 PARTNERS IMMNTX X OF [place] W/PRV CO ALLGIC XTRCS NJXS PROF SVCS 06003 ALLERGY ZIEGLER MAR ALLG 6 PARTNERS IMMNTX X OF [place] W/PRV CO ALLGIC XTRCS NJXS PROF SVCS 26004 ALLERGY ZIEGLER MAR ALLG 6 PARTNERS IMMNTX X OF [place] W/PRV CO ALLGIC XTRCS NJXS PROF SVCS 07966 ALLERGY ZIEGLER MAR ALLG 6 PARTNERS IMMNTX X OF [place] W/PRV CO ALLGIC XTRCS NJXS PREPJ& 60776 ALLERGY ZIEGLER MAR ALLERGEN 6 PARTNERS IMMUNOTHE OF [place] 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 PROF [facility] 86387 ALLERGY ZIEGLER MAR ALLG 6 PARTNERS IMMNTX X OF [place] W/PRV CO ALLGIC XTRCS NJXS PROF [facility] 42196 ALLERGY ZIEGLER MAR ALLG 6 PARTNERS IMMNTX X OF [place] W/PRV CO ALLGIC XTRCS NJXS PROF [facility] 32254 ALLERGY ZIEGLER MAR ALLG 6 PARTNERS IMMNTX X OF [place] W/PRV CO ALLGIC XTRCS NJXS PROF [facility] 38838 ALLERGY ZIEGLER MAR ALLG 6 PARTNERS IMMNTX X OF [place] W/PRV CO ALLGIC XTRCS NJXS PROF [facility] 00946 ALLERGY ZIEGLER MAR ALLG 5 PARTNERS IMMNTX X OF [place] W/PRV CO ALLGIC XTRCS NJXS E-STIM G0283 INDIO BORJAS 1/> AREAS 5 [facility] OTH THAN INC INC WND CARE PART TX PLAN THERAPEUT 63246 INDIO BORJAS IC PX 1/> 5 [facility] AREAS INC INC EACH 15 MIN EXERCISES APPLICATI 58566 [facility] ON 5 [facility] MODALITY INC INC 1/> AREAS HOT/COLD PACKS APPL 50023 [facility] MODALITY 5 [facility] 1/> AREAS INC INC VASOPNEUM ATIC DEVICES THERAPEUT 22898 INDIO BORJAS IC PX 1/> 5 [facility] AREAS INC INC EACH 15 MIN EXERCISES PHYSICAL 47710 [facility] THERAPY 5 [facility] EVALUATIO INC INC N E-STIM G0283 [facility]AS 1/> AREAS 5 [facility] OTH THAN INC INC WND CARE PART TX PLAN DEMO&/GERMAINE 90958 ALLERGY ZIEGLER MAR L OF PT 5 PARTNERS UTILIZ OF [place] AERSL CO GEN/NEB/I NHLR/IP NITRIC 40694 ALLERGY ZIEGLER MAR OXIDE 5 PARTNERS OF [place] GAS CO DETERMINA TION SPMTRY 93162 ALLERGY ZIEGLER MAR W/VC 5 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 [place] Y [place] CO W/WO MXML VOL VNTJ PROF [facility] 49778 ALLERGY ZIEGLER MAR ALLG 5 PARTNERS IMMNTX X OF [place] W/PRV CO ALLGIC XTRCS NJXS PROF SVCS 57099 ALLERGY ZIEGLER MAR ALLG 5 PARTNERS IMMNTX X OF [place] W/PRV CO ALLGIC XTRCS NJXS PROF SVCS 62271 ALLERGY ZIEGLER MAR ALLG 5 PARTNERS IMMNTX X OF [place] W/PRV CO ALLGIC XTRCS NJXS PROF SVCS 08277 ALLERGY ZIEGLER MAR ALLG 5 PARTNERS IMMNTX X OF [place] W/PRV CO ALLGIC XTRCS NJXS PROF SVCS 39925 ALLERGY ZIEGLER MAR ALLG 5 PARTNERS IMMNTX X OF [place] W/PRV [place] [address] ALLERGY ZIEGLER MAR ALLG 5 PARTNERS IMMNTX X OF [place] W/PRV CO ALLGIC XTRCS NJXS ANES 74064 [facility] BYRNE OPEN/SURG 5 ANESTHESI ROSALES A GROUP ARTHROSCO PS PIC PROC KNEE JOINT NOS ARTHRS 13735 [facility] KNE SURG 5 N N W/MENISCE COMMUNTIY COMMUNTIY CTOMY HOSPITA HOSPITA MED/LAT W/SHVG PROF [facility] 98624 ALLERGY ZIEGLER MAR ALLG 5 PARTNERS IMMNTX X OF [place] W/PRV CO ALLGIC XTRCS NJXS PROF [facility] 79033 ALLERGY ZIEGLER MAR ALLG 5 PARTNERS IMMNTX X OF [place] W/PRV CO ALLGIC XTRCS NJXS BLOOD 56299 [facility] COUNT 5 N N COMPLETE COMMUNTIY COMMUNTIY AUTOMATED HOSPITA HOSPITA BASIC 39958 [facility] METABOLIC 5 N N PANEL COMMUNTIY COMMUNTIY CALCIUM HOSPITA HOSPITA TOTAL ECG 62603 [facility] ROUTINE 5 N N ECG COMMUNTIY COMMUNTIY W/LEAST HOSPITA HOSPITA 12 LDS TRCG ONLY W/O I&R COLLECTIO 54143 [facility] N VENOUS 5 N N BLOOD COMMUNTIY COMMUNTIY VENIPUNCT HOSPITA HOSPITA URE RADIOLOGI 32450 [facility] [place] C EXAM 5 RADIOLOGY RHO CHEST 2 VIEWS FRONTAL&L ATERAL PROF SVCS 55637 ALLERGY ZIEGLER MAR ALLG 5 PARTNERS IMMNTX X OF [place] W/PRV CO ALLGIC XTRCS NJXS PROF SVCS 74773 ALLERGY ZIEGLER MAR ALLG 5 PARTNERS IMMNTX X OF [place] W/PRV CO ALLGIC XTRCS NJXS PROF SVCS 00945 ALLERGY ZIEGLER MAR ALLG 5 PARTNERS IMMNTX X OF [place] W/PRV CO ALLGIC XTRCS NJXS PROF SVCS 35734 ALLERGY ZIEGLER MAR ALLG 5 PARTNERS IMMNTX X OF [place] W/PRV CO ALLGIC XTRCS NJXS PROF SVCS 56426 ALLERGY ZIEGLER MAR ALLG 5 PARTNERS IMMNTX X OF [place] W/PRV CO ALLGIC XTRCS NJXS [place] ANY 25571 CEN[facility]AL [place] JT LOWER 5 [place] EXTREM ORTHOPAED W/O ICS PLC CONTRAST MATRL PROF SVCS 59801 ALLERGY ZIEGLER MAR ALLG 5 PARTNERS IMMNTX X OF [place] W/PRV CO ALLGIC XTRCS NJXS PROF SVCS 75799 ALLERGY ZIEGLER MAR ALLG 5 PARTNERS IMMNTX X OF [place] W/PRV CO ALLGIC XTRCS NJXS PROF SVCS 88973 ALLERGY ZIEGLER MAR ALLG 5 PARTNERS IMMNTX X OF [place] W/PRV CO ALLGIC XTRCS NJXS PROF SVCS 51404 ALLERGY ZIEGLER MAR ALLG 5 PARTNERS IMMNTX X OF [place] W/PRV CO ALLGIC XTRCS NJXS INJECTION J0696 BROCK MAGED 5 AND JANE CEFTRIAXO REYNALDO LYNNE SODIUM PSC PER 250 MG INJECTION J1100 BROCK MAGED 5 AND JANE DEXAMETHO TINY LYNNE PSC SODIUM PHOSPHATE 1 MG PROF SVCS 51299 ALLERGY ZIEGLER MAR ALLG 5 PARTNERS IMMNTX X OF [place] W/PRV CO ALLGIC XTRCS NJXS PROF SVCS 34875 ALLERGY ZIEGLER MAR ALLG 5 PARTNERS IMMNTX X OF [place] W/PRV CO ALLGIC XTRCS NJXS PROF SVCS 60332 ALLERGY ZIEGLER MAR ALLG 5 PARTNERS IMMNTX X OF [place] W/PRV CO ALLGIC XTRCS NJXS PROF SVCS 71658 ALLERGY ZIEGLER MAR ALLG 5 PARTNERS IMMNTX X OF [place] W/PRV CO ALLGIC XTRCS NJXS PROF SVCS 34667 ALLERGY ZIEGLER MAR ALLG 5 PARTNERS IMMNTX X OF [place] W/PRV CO ALLGIC XTRCS NJXS PROF SVCS 46045 ALLERGY ZIEGLER MAR ALLG 5 PARTNERS IMMNTX X OF [place] W/PRV CO ALLGIC XTRCS NJXS PROF SVCS 44629 ALLERGY ZIEGLER MAR ALLG 5 PARTNERS IMMNTX X OF [place] W/PRV CO ALLGIC XTRCS NJXS PROF [facility] 07087 ALLERGY ZIEGLER MAR ALLG 5 PARTNERS IMMNTX X OF [place] W/PRV CO ALLGIC XTRCS NJXS PREPJ& 78823 ALLERGY ZIEGLER MAR ALLERGEN 5 PARTNERS IMMUNOTHE OF [place] 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 PERCUTANE 47218 ALLERGY ZIEGLER MAR OUS TESTS 5 PARTNERS OF [place] W/ALLERGE CO ABNER EXTRACTS INTRACUTA 08782 ALLERGY ALLERGY NEOUS 5 PARTNERS PARTNERS TESTS OF [place] OF [place] W/ALLERGE CO CO ABNER EXTRACTS PERCUTANE 67794 ALLERGY ZIEGLER MAR OUS TESTS 5 PARTNERS OF [place] W/ALLERGE CO ABNER EXTRACTS SPMTRY 76311 ALLERGY ZIEGLER MAR W/VC 5 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 [place] Y [place]ARA CO W/WO MXML VOL VNTJ NITRIC 86747 ALLERGY ZIEGLER MAR OXIDE 5 PARTNERS OF [place] GAS CO DETERMINA TION HYALURONA J7324 CENTRAL [place] N/DERIV 5 [place] ORTHOVISC ORTHOPAED IA INJ ICS PLC PER DOSE ARTHROCEN 25449 C[facility]TR[facility] TESIS 5 [place] ASPIR&/IN ORTHOPAED J MAJOR ICS PLC JT/BURSA W/O US ARTHROCEN 62265 [facility]ENTRAL [facility] TESIS 5 [place] ASPIR&/IN ORTHOPAED J MAJOR ICS PLC JT/BURSA W/O US HYALURONA J7324 CENTRAL LUIS N/DERIV 5 [place] ORTHOVISC ORTHOPAED IA INJ ICS PLC PER DOSE HYALURONA J7324 CENTRAL LUIS N/DERIV 5 [place]OP[place] ORTHOVISC ORTHOPAED IA INJ ICS PLC PER DOSE ARTHROCEN 63990 CENTRAL LUIS TESIS 5 [place] ASPIR&/IN ORTHOPAED J MAJOR ICS PLC JT/BURSA W/O US SCREENING G0202 [facility] 5 [facility] MAMMOGRAP INC INC HY BENEDICT INCL CAD WHEN PERFORMD COMPUTER- 69883 [facility] AIDED 5 [facility] DETECTION INC INC SCREENING MAMMOGRAP HY IADNA 56266 BIO BIO 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 IES IES AMPLIFIED PROBE TECH ANNUAL G0439 CHARLES PERERA WELLNESS 5 DILMA PEREZ SONJA VST; PERSONALI ZED PPS SUBSQT VST URINLS 29351 CHARLES SOTO R DIP 5 DILMA PERERA MD STICK/[place] [address] [facility] INFUSION 5 [facility] THERAPY/P INC INC ROPHYLAXI S /DX 1ST TO 1 HR CYTP 42293 CHIPPS DUONG SLCTV 5 CLAIRE & ELIU CELL DUBILIER ENHANCEME NT INTERPJ XCPT C/V CELL 94610 [facility] COUNT 5 N N MISC BODY COMMUNTIY COMMUNTIY FLUIDS HOSPITA HOSPITA W/DIFFERE NTIAL COUNT PROTEIN 51527 [facility] TOTAL 5 N N XCPT COMMUNTIY COMMUNTIY REFRACTOM HOSPITA HOSPITA ETRY OTH SRC SMR PRIM 24316 [facility] SRC 5 N N GRAM/GIEM COMMUNTIY COMMUNTIY SA STAIN HOSPITA HOSPITA BCT FUNGI/JOSE L GLUCOSE 51630 [facility] BODY 5 N N FLUID COMMUNTIY COMMUNTIY OTHER HOSPITA HOSPITA THAN BLOOD SPINAL 75935 [facility] [place] ELIU PUNCTURE 5 RADIOLOGY LUMBAR DIAGNOSTI C CUL BACT 17298 [facility] XCPT 5 N N URINE COMMUNTIY COMMUNTIY BLOOD/STO HOSPITA HOSPITA OL AEROBIC ISOL FLUOR 28780 [facility] [place] ELIU NEEDLE/CA 5 RADIOLOGY TH SPINE/PAR ASPINAL DX/THER ADDON RADIOLOGI 45869 [facility] C EXAM 5 N N BOTH COMMUNTIY COMMUNTIY KNEES HOSPITA HOSPITA STANDING ANTEROPOS T RADIOLOGI 18864 [facility] C 5 N N EXAMINATI COMMUNTIY COMMUNTIY ON KNEE HOSPITA HOSPITA 1/2 VIEWS RADIOLOGI 59504 [facility] [place] ELIU C 5 RADIOLOGY EXAMINATI ON KNEE 3 VIEWS APPLICATI 70259 [facility] ON 5 [facility] MODALITY INC INC 1/> AREAS HOT/COLD PACKS MANUAL 70070 [facility] THERAPY 5 [facility] TQS 1/> INC INC REGIONS EACH 15 MINUTES E-STIM G0283 [facility] 1/> AREAS 5 [facility] OTH THAN INC INC WND CARE PART TX PLAN E-STIM G0283 [facility] B[facility] 1/> AREAS 5 [facility]OS[facility] OTH THAN INC INC WND CARE PART TX PLAN APPLICATI 35463 [facility] B[facility] ON 5 [facility]OS[facility] MODALITY INC INC 1/> AREAS HOT/COLD PACKS APPLICATI 99035 [facility] ON 5 [facility]OS[facility] MODALITY INC INC 1/> AREAS HOT/COLD PACKS MANUAL 97044 [facility] THERAPY 5 [facility] MEM [facility]OSP TQS 1/> INC INC REGIONS EACH 15 MINUTES E-STIM G0283 [facility] 1/> AREAS 5 [facility] MEM HOSP OTH THAN INC INC WND CARE PART TX PLAN E-STIM G0283 [facility] B[facility]AS 1/> AREAS 5 [facility] MEM HOSP OTH THAN INC INC WND CARE PART TX PLAN MANUAL 37319 [facility] THERAPY 5 [facility]OS[facility] TQS 1/> INC INC REGIONS EACH 15 MINUTES APPLICATI 82018 [facility] ON 5 [facility]OS[facility] MODALITY INC INC 1/> AREAS HOT/COLD PACKS MANUAL 31131 [facility] THERAPY 5 [facility] TQS 1/> INC INC REGIONS EACH 15 MINUTES APPLICATI 77901 [facility] ON 5 [facility]OS[facility] MODALITY INC INC 1/> AREAS HOT/COLD PACKS E-STIM G0283 [facility] 1/> AREAS 5 [facility] MEM HOSP OTH THAN INC INC WND CARE PART TX PLAN E-STIM G0283 INDIO HUNTERON 1/> AREAS 5 [facility] MEM HOSP OTH THAN INC INC WND CARE PART TX PLAN THERAPEUT 63038 [facility] BORJAS IC PX 1/> 5 [facility] AREAS INC INC EACH 15 MIN EXERCISES PHYSICAL 29139 [facility] THERAPY 5 [facility] EVALUATIO INC INC N MANUAL 82911 [facility] THERAPY 5 [facility] TQS 1/> INC INC REGIONS EACH 15 MINUTES APPLICATI 91491 [facility] ON 5 [facility] MODALITY INC INC 1/> AREAS HOT/COLD PACKS MRI BRAIN 51043 [facility] BRAIN 5 N N STEM W/O COMMUNTIY COMMUNTIY CONTRAST HOSPITA HOSPITA MATERIAL KNEE L1845 [facility] 4 TECHNOLOG TECHNOLOG DOUBLE IES INC IES INC UPRIGHT THIGH & CALF PREFAB RADIOLOGI 63478 [facility] 4 N N EXAMINATI COMMUNITY COMMUNITY ON PELVIS HOSPITA HOSPITA 1/2 VIEWS COLLECTIO 17667 [facility] N VENOUS 4 N N BLOOD [facility] VENIPUNCT HOSPITA HOSPITA URE COMPREHEN 84102 [facility] SIVE 4 N N METABOLIC COMMUNITY COMMUNITY PANEL HOSPITA HOSPITA RADIOLOGI 69149 [facility] EXAM 4 N N BOTH COMMUNITY COMMUNITY KNEES HOSPITA HOSPITA STANDING ANTEROPOS T RADIOLOGI 56054 [facility] [place] C 4 RADIOLOGY RHO EXAMINATI ON KNEE 3 VIEWS RADIOLOGI 21509 [facility] 4 N N EXAMINATI [facility] ON KNEE HOSPITA HOSPITA 1/2 VIEWS BLOOD 64347 [facility] COUNT 4 N N COMPLETE [facility] AUTOMATED HOSPITA HOSPITA IIV3 VACC 85531 [facility] PRESERVAT #591 #591 JAG FREE 0.5 ML DOSAGE IM USE ADMINISTR G0008 [facility] [place] [address] [facility] PHARMACY INFLUENZA #591 #591 VIRUS VACCINE INJECTION J1100 MAGED LYNNE 4 JANE LARA DEXAMETHO SONE SODIUM PHOSPHATE 1 [place] [address] [facility] INFUSION 4 MEM [facility] MEM HOS[facility] THERAPY/P INC INC ROPHYLAXI S /DX 1ST TO 1 HR THERAPEUT 02127 [facility] IC 4 [facility] INJECTION [place] [address] [facility] INFUSION 4 [facility] THERAPY INC INC PROPHYLAX IS/DX EA HOUR INJECTION J2405 [facility] 4 [facility] ONDANSETR INC INC ON HCL PER 1 MG ARTHRS 34170 [facility] KNEE 4 [facility] ABRASION INC INC ARTHRP/ML T DRLG/MICR OFX ARTHRS 48244 [facility] KNEE 4 [facility] W/MENISCE INC INC CTOMY MED&LAT W/SHAVING BASIC 59110 [facility] METABOLIC 4 [facility] PANEL INC INC CALCIUM TOTAL ECG 86673 [facility] ROUTINE 4 [facility] ECG INC INC W/LEAST 12 LDS TRCG ONLY W/O I&R COLLECTIO 42399 [facility] N VENOUS 4 [facility] BLOOD INC INC VENIPUNCT URE BLOOD 98637 [facility] COUNT 4 MEM [facility] MEM [facility]OS[facility] COMPLETE INC INC AUTO&AUTO DIFRNTL WBC ECG 19678 INDIO ADAM JR ROUTINE [address] [facility] W/LEAST P 12 LDS I&R ONLY URNLS DIP 14653 MAGED LYNNE 4 JANE JANE STICK/TAB LET RGNT NON-AUTO W/O MICRSCP RADEX 88527 SAM[facility] CYR SPINE 4 MEDICAL [place] LUMBOSACR IMAGING AL ASS MINIMUM 4 VIEWS ANNUAL G0438 CHARLES PERERA WELLNESS 4 DILMA CASILLAS VISIT; PERSONALI Z PPS INIT VISIT URINLS 89437 CHARLES SOTO R DIP 4 DILMA PERERA MD STICK/TAB LET REAGNT NON-AUTO MICRSCPY RADIOLOGI 35508 SAMMI BAHENAUTCHER C 4 [facility]ICAL [place] EXAMINATI IMAGING ON KNEE 3 ASS VIEWS IADNA 67990 BIO BIO TRICHOMON 4 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 VAGINALIS IES IES AMPLIFIED PROBE TECH CERV/VAGI G0101 CHARLES PERERA NAL 4 DILMA CASILLAS CANCER SCR; PELV&CLIN BREAST EXAM THERAPEUT 71504 [facility] IC 4 [facility] PROPHYLAC INC INC TIC/DX INJECTION SUBQ/IM SCR G0145 BIO BIO CYTOPATH 4 REFERNCE REFERNCE CERV/VAG LABORATOR LABORATOR SCR IES IES AUTO&MNL RSCR PHYS SCREEN Q0091 CHARLES PERERA PAP 4 DILMA CASILLAS SMEAR; OBTAIN PREP &C ONVEY TO LAB COMPREHEN 54926 [facility] SIVE 4 SUZI SUZI [employer]ABOL[place] [address] [facility] THYROID 4 SUZI SUZI STIMULATI HOLDINGS HOLDINGS NG HORMONE TSH BLOOD 13847 [facility] LAB [facility]LANA COUNT 4 SUZI SUZI COMPLETE [employer] HOLDINGS AUTOMATED ARTHROCEN 40921 [facility] KIRSTYTEKimberly TESIS 4 PHYSICIAN JAM ASPIR&/IN S GROUP J MAJOR JT/BURSA W/O US COLLECTIO 36102 [facility] N VENOUS 4 MEM HOSP MEM HOS[facility] BLOOD INC INC VENIPUNCT URE LIPID 02721 [facility] PANEL 4 MEM HOSP MEM HOSP INC INC COMPREHEN 65682 [facility] SIVE 4 MEM HOS[facility] MEM HOSP METABOLIC INC INC PANEL URNLS DIP 64389 [facility] 4 [facility]OS[facility] STICK/TAB INC INC LET REAGENT AUTO MICROSCOP Y BLOOD 06629 [facility] COUNT 4 MEM [facility] COMPLETE INC INC AUTO&[place] [address] [facility] THYROID 4 MEM HOSP MEM HOSP STIMULATI INC INC NG HORMONE TSH MRI ANY 80686 SAMMI CYR JT LOWER 4 MEDICAL [place] EXTREM IMAGING W/O ASS CONTRAST MATRL THERAPEUT 77157 [facility] IC 4 MEM [facility]OS[facility] PROPHYLAC INC INC TIC/DX INJECTION SUBQ/IM DIAGNOSTI G0204 [facility] C 3 MEM H[facility]OS[facility] MAMMOGRAP INC INC HY INCL CAD WHEN PERF; BILAT ARTHROCEN [facility] [place] TESIS 3 PHYSICIAN ALFONSO ASPIR&/IN S GROUP J MAJOR JT/BURSA W/O US HYALURONA J7325 [facility] PETTEY N/DERIV 3 PHYSICIAN ALFONSO SYNVISC/S S GROUP YNVISC-ON E IA INJ 1 MG APPL 56472 MIAN ORTIZ MODALITY 3 MATT 1/> AREAS CHIROPRAC TRACTION TIC CENTE MECHANICA L CHIROPRAC 04888 MIAN ORTIZ TIC 3 MATT MANIPULAT CHIROPRAC JAG TX TIC CENTE SPINAL 3-[place] [address] MIAN ORTIZ 1/> AREAS 3 MATT EACH 15 CHIROPRAC MIN TIC CENTE NEUROMUSC REEDUCA THERAPEUT 46042 MIAN ORTIZ IC PX 1/> 3 MATT AREAS CHIROPRAC EACH 15 TIC CENTE MIN EXERCISES APPLICATI 15768 MIAN ORTIZ ON 3 MATT MODALITY CHIROPRAC 1/> AREAS TIC CENTE HOT/COLD PACKS APPLICATI 38640 MIAN ORTIZ ON 3 MATT MODALITY CHIROPRAC 1/> AREAS TIC CENTE HOT/COLD PACKS THERAPEUT 41679 MIAN ORTIZ IC PX 1/> 3 MATT AREAS CHIROPRAC EACH 15 [place] [address] MIAN ORTIZ 1/> AREAS 3 MATT EACH 15 CHIROPRAC MIN TIC CENTE NEUROMUSC REEDUCA CHIROPRAC 75471 MIAN ORTIZ TIC 3 MATT MANIPULAT CHIROPRAC JAG TX TIC CENTE SPINAL 3-4 REGIONS APPL 27788 MIAN ORTIZ MODALITY 3 MATT 1/> AREAS CHIROPRAC TRACTION TIC CENTE MECHANICA L APPL 34657 MIAN ORTIZ MODALITY 3 MATT 1/> AREAS CHIROPRAC TRACTION TIC CENTE MECHANICA L CHIROPRAC 71885 MIAN ORTIZ TIC 3 MATT MANIPULAT CHIROPRAC JAG TX TIC CENTE SPINAL 3-4 REGIONS THERAPEUT 46241 MIAN ORTIZ IC PX 1/> 3 MATT AREAS CHIROPRAC EACH 15 TIC CENTE MIN EXERCISES APPLICATI 06556 MIAN DIANA ON 3 MATT MODALITY CHIROPRAC 1/> AREAS TIC CENTE HOT/COLD PACKS CHEMODERV 93564 [facility] VINEET ÁNGEL ATE 3 N FACIAL/TR NEUROLOGY IGEM/CERV MUSC MIGRAINE BOTULINUM J0585 [facility] VINEET ÁNGEL TOXIN 3 N TYPE A NEUROLOGY PER UNIT INJECTION J0171 [facility] 3 N N ADRENALIN [facility] HOSPITA HOSPITA EPINEPHRI NE 0.1 MG INJECTION J2370 [facility] 3 N N PHENYLEPH [facility] RINE HCL HOSPITA HOSPITA UP TO 1 ML INJECTION J3010 [facility] FENTANYL 3 N N CITRATE [facility] 0.1 MG HOSPITA HOSPITA INJECTION J2405 [facility] 3 N N ONDANSETR [facility] ON HCL HOSPITA HOSPITA PER 1 MG INJECTION J0690 [facility] 3 N N CEFAZOLIN [facility] SODIUM HOSPITA HOSPITA 500 MG DECALCIFI 71063 [facility] BENSEMA CATION 3 CLAIRE & MAR PROCEDURE [facility] [place] [address] CHIPPS BENSEMA SURG 3 CLAIRE & MAR [facility]&MIKAL ROSCOPIC EXAM NASAL/SIN 33831 [facility] US 3 N N ENDOSCOPY [facility] HOSPITA HOSPITA W/MAXILLA RY ANTROSTOM Y STRTCTC 41905 [facility] CPTR 3 N N ASSTD PX [facility] EXTRADURA HOSPITA HOSPITA L CRANIAL SEPTOPLAS 66167 [facility] TY/SUBMUC 3 N N OUS [facility] RESECJ HOSPITA HOSPITA W/WO CARTILAGE GRF NASAL/SIN 16375 [facility] US 3 N N ENDOSCOPY [facility] HOSPITA HOSPITA W/ETHMOID ECTOMY TOTAL NASAL/SIN 27579 [facility] US NDSC 3 N N W/FRONTAL [facility] SINUS HOSPITA HOSPITA EXPLORATI ON NASAL/SIN 07776 [facility] US 3 N N ENDOSCOPY [facility] HOSPITA HOSPITA W/SPHENOI DOTOMY ANESTHESI 74226 SAMMI Damian NOSE & 3 ANESTHESI ELIU ACCESSORY A GROUP SINUSES PS NOS INJ Q9968 [facility] NONRADIAT 3 N N JAG [facility] NONCONTRA HOSPITA HOSPITA ST VIZ ADJUNCT 1 MG SUBMUCOUS 76100 EAR, NOSE SHASHY RESCJ 3 AND HARESH INFERIOR THROAT TURBINATE SPECIAL PRTL/COMP L INJECTION J1100 [facility] 3 N N DEXAMETHO [facility] SONE HOSPITA HOSPITA SODIUM PHOSPHATE 1 MG INJECTION J2001 [facility] 3 N N LIDOCAINE [facility] HCL HOSPITA HOSPITA INTRAVENO US INFUS 10 MG BLOOD 48102 [facility] COUNT 3 N N HEMOGLOBI [facility] N HOSPITA HOSPITA COLLECTIO 85674 [facility] N VENOUS 3 N N BLOOD [facility] VENIPUNCT HOSPITA HOSPITA URE BLOOD 04206 [facility] COUNT 3 N N HEMATOCRI [facility] T HOSPITA HOSPITA INTRACUTA 22298 EAR, NOSE SHASHY NEOUS 3 AND HARESH TESTS THROAT W/ALLERGE SPECIAL ABNER EXTRACTS PERCUTANE 51503 EAR, NOSE SHASHY OUS TESTS 3 AND HARESH THROAT W/[place] [address] [facility] MAXILLOFA 3 N N CIAL W/O COMMUNITY COMMUNITY CONTRAST HOSPITA HOSPITA MATERIAL NASOPHARY 20910 EAR, NOSE SHASHY NGOSCOPY 3 AND HARESH W/ENDOSCO THROAT PE SPX SPECIAL APPL 15868 MIAN DIANA MODALITY 3 MATT 1/> AREAS CHIROPRAC TRACTION TIC CENTE MECHANICA L CHIROPRAC 16205 MIAN DIANA TIC 3 MATT MANIPULAT CHIROPRAC JAG TX TIC CENTE SPINAL 3-[place] [address] MIAN DIANA 1/> AREAS 3 MATT EACH 15 [place]OP[place] [address] MIAN DIANA 1/> AREAS 3 MATT EACH 15 CHIROPRAC MIN TIC CENTE NEUROMUSC REEDUCA OPHTHALMO 15054 JACKELYN HAYDEN SCPY 3 JAM JAM EXTENDED RETINAL DRAWING I&R 1ST DETERMINA 02026 HAYDEN JACKELYN ARRIETAON 3 JAM JAM REFRACTIV E STATE APPL 45198 MIAN DIANA MODALITY 3 MATT 1/> AREAS CHIROPRAC TRACTION TIC CENTE MECHANICA L CHIROPRAC 35857 MIAN DIANA TIC 3 MATT MANIPULAT CHIROPRAC JAG TX TIC CENTE SPINAL 3-[place] [address] CYNERIC DIANA 1/> AREAS 3 MATT EACH 15 [place] [address] CYNERIC DIANA 1/> AREAS 3 MATT EACH 15 CHIROPRAC [place] [address] CYNTH[place]NA DIANA 1/> AREAS 3 MATT EACH 15 CHIROPRAC [place] [address] CYNTHIANA DIANA 1/> AREAS 3 MATT EACH 15 CHIROPRAC MINUTES TIC CENTE MASSAGE CHIROPRAC 24765 MIAN DIANA TIC 3 MATT MANIPULAT CHIROPRAC JAG TX TIC CENTE SPINAL 3-4 REGIONS APPL 18966 CYNTH[place] DIANA MODALITY 3 MATT 1/> AREAS CHIROPRAC TRACTION TIC CENTE MECHANICA L THERAPEUT 12316 INDIO BORJAS IC 2 [facility] INC TIC/DX INJECTION SUBQ/IM SCREENING G0202 ALABAMA KLARISSA 2 MEDICAL KASSANDRA MAMMOGRAP IMAGING HY BENEDICT ASS INCL CAD WHEN PERFORMD COMPUTER- 90298 ALABAMA KLARISSA AIDED 2 MEDICAL KASSANDRA DETECTION IMAGING ASS SCREENING MAMMOGRAP HY CHIROPRAC 53593 MIAN CALVERT DOMINIQUE TIC 2 MANIPULAT CHIROPRAC JAG TX TIC CENTE SPINAL 3-4 REGIONS CHIROPRAC 54989 MIAN CALVERT DOMINIQUE TIC 2 MANIPULAT CHIROPRAC JAG TX TIC CENTE SPINAL 3-4 REGIONS CYTP C/V 34153 BIO BIO AUTO THIN 2 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 PREPJ SCR IES IES MNL RESCR PHYS IADNA 40944 BIO BIO CHLAMYDIA 2 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 TRACHOMAT IES IES IS AMPLIFIED PROBE TQ BLOOD 79481 CHARLES PERERA OCCULT 2 DILMA PEREZ SONJA PEROXIDAS E ACTV QUAL FECES 1 DETER IADNA 16466 BIO BIO NEISSERIA 2 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 GONORRHOE IES IES AE AMPLIFIED PROBE TQ IADNA NOS 40265 BIO BIO 2 REFERNCE REFERNCE AMPLIFIED LABORATOR LABORATOR PROBE TQ IES IES EACH ORGANISM ANNUAL G0438 CHARLES SOTO R WELLNESS 2 DILMA PERERA MD VISIT; PERSONALI Z PPS INIT VISIT URINLS 60650 CHARLES PERERA DIP 2 DILMA PEREZ SONJA STICK/TAB LET REAGNT NON-AUTO MICRSCPY CHIROPRAC 79544 MIAN ORTIZ TIC 2 MATT MANIPULAT CHIROPRAC JAG TX TIC CENTE SPINAL 3-4 REGIONS CHIROPRAC 63435 MIAN CALVERT DOMINIQUE TIC 2 MANIPULAT CHIROPRAC JAG TX TIC CENTE SPINAL 3-4 REGIONS CHIROPRAC 33203 MAIN CALVERT DOMINIQUE TIC 2 MANIPULAT CHIROPRAC JAG TX TIC CENTE SPINAL 3-4 REGIONS CHIROPRAC 10323 MIAN CALVERT DOMINIQUE TIC 2 MANIPULAT CHIROPRAC JAG TX TIC CENTE SPINAL 3-4 REGIONS CHIROPRAC 16605 MIAN CALVERT DOMINIQUE TIC 2 MANIPULAT CHIROPRAC JAG TX TIC CENTE SPINAL 3-4 REGIONS RADEX 45146 AL[place]AMA KLARISSA SPINE 2 MEDICAL KASSANDRA LUMBOSACR IMAGING AL ASS MINIMUM 4 VIEWS INFLUENZA Q2036 BROCK BROCK VACC 2 JAM JAM SPLIT VIRUS 3 YRS & > IM FLULAVAL INJ J0702 BROCK GUTIÉRREZ BETAMETHA 2 JAM JAM SONE ACETATE & PHOSPHATE 3 MG URNLS DIP 87775 BROCK BROCK 2 JAM JAM STICK/TAB LET RGNT NON-AUTO W/O MICRSCP INJECTION J1100 BROCK BROCK 2 JAM JAM DEXAMETHO SONE SOD[place] [address] [place] [address] [facility] ABDOMEN & 2 [facility] W/O CONTRAST MATERIAL URNLS DIP [address] STICK/TAB [facility] HOSPITAL LET REAGENT AUTO MICROSCOP Y RADEX 96383 AL[place]AMA KLARISSA FOOT 2 MEDICAL KASSANDRA COMPLETE IMAGING MINIMUM 3 ASS VIEWS TDAP 87608 INDIO HUNTERON VACCINE 7 2 [facility] YRS/> IM INC INC RADEX TOE 15805 [place]AMA KLARISSA MINIMUM 2 MEDICAL KASSANDRA 2 VIEWS IMAGING ASS RADIOLOGI 93217 [place] KLARISSA C 2 MEDICAL KASSANDRA EXAMINATI IMAGING ON K[place]EE [address] [place] [address] [facility] ABDOMEN & [address] [place] [address] PELVIS W/O CONTRAST MATERIAL CUL BACT 97920 [facility] XCPT [address] [place] [address] URINE BLOOD/STO OL AEROBIC ISOL HEMOGLOBI [address] GLYCOSYLA STEFANO A1C PREALBUMI [address] DEBRIDEME [address] SUBCUTANE OUS TISSUE 20 SQ CM/< COLLECTIO 61683 [facility] VENOUS [address] [place] [address] BLOOD VENIPUNCT URE COMPREHEN [address] METABOLIC PANEL CUL BACT [address] ADDL METHS DEFINITIV E EA ISOL SMR PRIM [address] GRAM/GIEM SA STAIN BCT FUNGI/JOSE L INJECTION J1100 MAGED LYNNE 1 JANE JANE DEXAMETHO SONE SODIUM PHOSPHATE 1 MG MRI LOWER 72291 INDIO BORJAS EXTREM 1 [facility] OTH/THN INC INC JT W/O CONTR MATRL RADIOLOGI 24655 [facility] C 1 [facility] ON KNEE 3 VIEWS LOCM Q9967 [facility] [phone] 1 [facility] MG/[facility] [place] [address] [facility] ABDOMEN & 1 [facility] W/CONTRAS T MATERIAL HI OSM Q9963 [facility] CONTRST 1 [facility] [phone] MG/ML IODINE CONC ML URNLS DIP 69857 INDIO INDIO 1 [facility] STICK/TAB INC INC LET REAGENT AUTO MICROSCOP Y NRV CNDJ 77978 MUSLIM JULIETA Crowley AMPLT&LAT 1 NEUROLOGY NCY EA SERVICES NRV MOTR W/O F-WAVE STD NRV CNDJ 77806 CENTRAL CENTRAL AMPLT&LAT 1 MUSLIM MUSLIM ENCY EA HOSP HOSP NRV MOTOR W/F-WAVE STD MRI LOWER 92643 KRISHNA KELLER EXTREM [address] [facility] JT W/O & W/CONTR MATR NRV CNDJ 55901 MUSLIM JULIETA T AMPLITUDE 1 NEUROLOGY & SERVICES LATENCY EACH NERVE SENSORY H-REFLEX 22464 MUSLIM JULIETA T AMPLT&LAT 1 NEUROLOGY ENCY SERVICES GASTRCN/S OLEUS MUSC RADEX 62878 [facility] [place] ARCHER FOOT 1 RADIOLOGY KAHLIL COMPLETE MINIMUM 3 VIEWS URNLS DIP 60093 INDIO BORJAS 1 [facility]OS[facility] STICK/TAB INC INC LET REAGENT AUTO MICROSCOP Y 3D 50494 SAMMI KLARISSA RENDERING 1 MEDICAL KASSANDRA IMAGING W/INTERP& [place] [address] SAMMI CYR ABDOMEN & 1 MEDICAL KASSANDRA PELVIS IMAGING W/O ASS CONTRAST MATERIAL CT LOWER 83383 [facility] EXTREMITY 0 N N W/O [facility] CONTRAST HOSPITA HOSPITA MATERIAL INITIAL 13227 [facility] 1ST 0 EMERGENCY III CHERYL DEGREE SERVICES BURN LOCAL [place] UNLISTED 59983 [facility] ANESTHESI 0 N N A COMMUNITY [facility] HOSPITA ANES 49605 [place] RICHARD INTEG 0 ANESTHESI JOHN EXTREMITI A GROUP ES ANT PSC TRUNK & PERINEUM NOS RADIOLOGI 08824 [facility] C 0 N N EXAMINATI [facility] ON FOOT 2 HOSPITA HOSPITA VIEWS BLOOD 32907 [facility] COUNT 0 N N COMPLETE [facility] AUTO&AUTO HOSPITA HOSPITA DIFRNTL WBC RADIOLOGI 27674 [facility] [place] ZOHAIB MAT C EXAM 0 RADIOLOGY CHEST 2 VIEWS FRONTAL&L ATERAL COMPREHEN 67766 [facility] SIVE 0 N N METABOLIC [facility] PANEL HOSPITA HOSPITA FLUOROSCO 37595 [facility] PY SPX UP 0 N N TO 1 [facility] HOUR HOSPITA HOSPITA PHYS/QHP TIME COLLECTIO 37715 [facility] N VENOUS 0 N N BLOOD [facility] VENIPUNCT HOSPITA HOSPITA URE ECG 05264 [facility] ROUTINE 0 N N ECG [facility] W/LEAST HOSPITA HOSPITA 12 LDS TRCG ONLY W/O I&R INJECTION J2405 [facility] 0 N N ONDANSETR [facility] ON HCL HOSPITA HOSPITA PER 1 MG REMOVAL 29686 [facility] FOREIGN 0 N N BODY FOOT [facility] HOSPITA HOSPITA COMPLICAT ED INJECTION J2250 [facility] 0 N N [facility] PER HOSPITA HOSPITA 1 [place] [address] PATHOLOGY PATHOLOGY SURG 0 & & PATHOLOGY CYTOLOGY CYTOLOGY GROSS LAB LAB EXAMINATI ON ONLY RADEX 43792 [facility] FOOT 0 N N COMPLETE [facility] MINIMUM 3 HOSPITA HOSPITA VIEWS RADIOLOGI 84216 GILLIAN ESPOSITO C 0 EMERGENCY DORIAN EXAMINATI SERVICES ON FOOT 2 VIEWS RADIOLOGI 94441 [facility] [place] Kamini PENNY EXAM 0 RADIOLOGY MELISSA D CHEST 2 VIEWS FRONTAL&L ATERAL RADIOLOGI 39188 INDIO BORJAS C 0 MEM [facility]OS[facility] EXAMINATI INC INC ON PELVIS 1/2 VIEWS URNLS DIP 02359 INDIO BORJAS 0 [facility] STICK/TAB INC INC LET REAGENT AUTO MICROSCOP Y RADEX HIP 75317 INDIO BORJAS 0 [facility]OSP UNILATERA INC INC L COMPLETE MINIMUM 2 VIEWS EGD 52985 OWENS- OWENS- TRANSORAL 0 ALEXANDRU, ALEXANDRU, BIOPSY ROSA LEE SINGLE/MU LTIPLE ANES 03825 [place] DEPA, UPPER GI 0 ANESTHESI MARCIA ENDOSCOPY A GROUP PROXIMAL PSC TO DUODENUM SPECIAL 91099 PATHOLOGY PATHOLOGY STAIN 0 & & GROUP 1 CYTOLOGY CYTOLOGY MICROORGA LAB LAB NISMS I&R SPCL STN 34367 PATHOLOGY PATHOLOGY 2 I&R 0 & & EXCPT CYTOLOGY CYTOLOGY MICROORG/ LAB LAB ENZYME/[place] [address] PATHOLOGY PATHOLOGY SURG 0 & & PATHOLOGY CYTOLOGY CYTOLOGY LAB LAB GROSS&MIKAL ROSCOPIC EXAM ECG 14178 INDIO ADAM, ROUTINE 0 [facility] W/LEAST PROF SERV 12 LDS I&[place] [address] INDIO BORJAS AMYLASE 0 [facility] INC INC CREATINE 35568 INDIO BORJAS KINASE MB 0 MEM [facility] FRACTION INC INC ONLY CREATINE 79653 INDIO BORJAS KINASE 0 [facility] [place] [place] [address] INDIO BORJAS LIPASE 0 [facility]OS[facility] INC INC BLOOD 58703 INDIO BORJAS COUNT 0 [facility] COMPLETE INC INC AUTO&[place] [address] [facility] B[facility] TROPONIN 0 MEM H[facility] QUANTITAT INC INC JAG ECG 01350 INDIO [facility]ORJAS ROUTINE 0 [facility] ECG INC INC W/LEAST 12 LDS TRCG ONLY W/O I&R COMPREHEN 90857 INDIO BORJAS SIVE 0 [facility] METABOLIC INC INC PANEL HYALURONA J7325 ESTRELLA BANEGAS, N/DERIV 0 MEDICAL ODELL T SYNVISC/S SERV YNVISC-ON FOUNDATIO E IA INJ 1 MG APPL 50533 JUDY KIM MODALITY 0 [facility] 1/[facility] ULTRASOUN D EA 15 MIN THERAPEUT 18787 JUDY KIM IC PX 1/> 0 [facility] EACH 15 MIN EXERCISES RADIOLOGI 51148 INDIO INDIO C EXAM 9 [facility] BOTH INC INC KNEES STANDING ANTEROPOS T ARTHROCEN 29493 GIOVANNY REYNOLDS 9 MEDICAL ODELL T ASPIR&/IN SERV J MAJOR FOUNDATIO JT/BURSA W/O US INJECTION J3301 Promise REYNOLDS MEDICAL ODELL T TRIAMCINO SERV LONE FOUNDATIO ACETONIDE NOS 10 MG RADIOLOGI 80651 ALABAMA Kamini CYR 9 MEDICAL EUNICE EXAMINATI IMAGING ON KNEE ASSOCIATE 1/2 VIEWS S MRI ANY 33941 [facility] [place] LOWER 9 RADIOLOGY ADRIANA FAROOQ W/O CONTRAST MATRL RADIOLOGI 25683 [facility] Kaimni SALCEDO 9 RADIOLOGY MELISSA Santos EXAMINATI ON KNEE 3 VIEWS RADIOLOGI 42091 CNTR[facility] Kamini SUMNER 9 RADIOLOGY J EXAMINATI ON KNEE 1/2 VIEWS TAPE A4452 [facility] CCS [place] 9 MEDICAL MEDICAL F PER 18 SQUARE INCHES SPCLTY A6251 CCS CCS ABSORB 9 MEDICAL MEDICAL DRESS STERL 16 SQ/<NO ADHES BORDR GAUZE A6222 [facility] CCS IMPREG 9 MEDICAL MEDICAL NOT H2O NL SALINE/HY DROGEL 16 SQ/< BX SKIN 56392 ADDISON, ADDISON, SUBCUTANE 9 ALACIA L ALACIA L OUS&/MUCO US MEMBRANE 1 LESION LEVEL III 88090 [facility] SURG 9 Y Y PATHOLOGY [facility] GROSS&MIKAL ROSCOPIC EXAM BLOOD 30290 [facility] COUNT 9 [facility] [place] [address] [facility] THYROID 9 [facility] STIMULSOLOMON [facility] NG HORMONE TSH COLLECTIO 04093 [facility] N VENOUS 9 [facility] VENIPUNCT URE COMPREHEN 59388 [facility] SIVE 9 [facility] PANEL CREATINE 56979 [facility] KINASE 9 [facility] LIPID 99045 [facility] PANEL [address] [place] [address] [place] [address] [facility] ABDOMEN 9 Y Y W/[facility] T MATERIAL LOCM Q9967 [facility] [phone] Y Y MG/ML [facility] HOSPITAL IODINE CONCENTRA TION PER ML CT PELVIS 76303 [facility] 9 Y Y W/[facility] T MATERIAL TAPE A4452 [facility] [place] 9 MEDICAL MEDICAL F PER 18 SQUARE INCHES SPCLTY A6251 [facility] ABSORB 9 MEDICAL MEDICAL DRESS STERL 16 SQ/<NO ADHES BORDR BASIC 01914 [facility] METABOLIC 9 Y Y [facility] CALCIUM TOTAL CULTURE 61977 [facility] BACTERIAL 9 Y Y BLOOD [facility] AEROBIC W/ID ISOLATES COLLECTIO 00756 [facility] N VENOUS 9 Y Y BLOOD [facility] VENIPUNCT URE ALGINAT/O A6196 [facility]CS CCS TH FIBER 9 MEDICAL MEDICAL GELL DRESS STERIL PAD 16 SQ/< BLOOD 48793 [facility] COUNT 9 Y Y [facility] AUTO&AUTO DIFRNTL WBC SCR G0145 PATHOLOGY PATHOLOGY CYTOPATH 9 & & CERV/VAG CYTOLOGY CYTOLOGY SCR LAB LAB AUTO&MNL RSCR PHYS SUSCEPTIB 23635 [facility] ILITY 9 [facility] STUDY ANTIMICRO BIAL DISK METHOD CUL BACT 26290 [facility] XCPT 9 [facility] URINE BLOOD/STO OL AEROBIC ISOL CULTURE 23202 [facility] TYPING 9 [facility] IMMUNOLOG IC OTH/THN IMMUNOFLU ORES RADEX 61375 [facility] [place] NIKKI, SHOULDER 9 RADIOLOGY RUBÉN G COMPLETE MINIMUM 2 VIEWS THERAPEUT 72954 TOMER SMALLWOOD, IC PX 1/> 8 [facility] J EACH 15 PSC MIN EXERCISES THERAPEUT 48111 TOMER SMALLWOOD, IC PX 1/> 8 [facility] M[facility] ASSOC J EACH 15 PSC MIN EXERCISES MANUAL 15996 TOMER SMALL[place]OD, THERAPY 8 NAL REHAB MARCOS TQS 1/> ASSOC J REGIONS PSC EACH 15 MINUTES MANUAL 48101 TOMER SMALLWOOD, THERAPY 8 NAL REHAB [facility]ARCOS TQS 1/> ASSOC J REGIONS PSC EACH 15 MINUTES THERAPEUT 61306 TOMER SMALLWOOD, IC PX 1/> 8 NAL REHAB [facility]ARC[facility] AREAS ASSOC J EACH 15 PSC MIN EXERCISES THERAPEUT 97927 TOMER SMALLWOOD, IC PX 1/> 8 NAL REHAB MARCOS AREAS ASSOC J EACH 15 PSC MIN EXERCISES MANUAL 41728 TOMER SMALLWOOD, THERAPY 8 NAL REHAB MARCOS TQS 1/> ASSOC J REGIONS PSC EACH 15 MINUTES MANUAL 75438 TOMER SMALLWOOD, THERAPY 8 NAL REHAB MARCOS TQS 1/> ASSOC J REGIONS PSC EACH 15 MINUTES THERAPEUT 70188 TOMER SMALLWOOD, IC PX 1/> 8 NAL REHAB MARCOS AREAS ASSOC J EACH 15 PSC MIN EXERCISES THERAPEUT 72684 TOMER SMALLWOOD, IC PX 1/> 8 NAL REHAB MARCOS AREAS ASSOC J EACH 15 PSC MIN EXERCISES PHYSICAL 51588 TOMER SMALLWOOD, THERAPY 8 NAL REHAB MARCOS EVALUATIO ASSOC J N PSC APPL 84453 TOMER SMALLWOOD, MODALITY 8 NAL REHAB MARCOS 1/> AREAS ASSOC J PSC ULTRASOUN D EA 15 MIN MRI 32419 [facility] SPINAL 8 [facility] LUMBAR W/O CONTRAST MATERIAL NRV CNDJ 79764 TERRY STEWART, AMPLT&LAT 8 [place] LERMA ENCY EA NRV MOTOR W/F-WAVE STD NRV CNDJ 83514 TERRY STEWART, AMPLITUDE 8 [place] & LATENCY EACH NERVE SENSORY NDL EMG 1 12259 TERRY STEWART, XTR W/WO 8 [place] LERMA RELATED PARASPINA L AREAS MRI 01326 KLARISSA CYR, SPINAL 8 EUNICE EUNICE CANAL LUMBAR W/O CONTRAST MATERIAL INJECTION J1030 FAMILY FAMILY 8 CARE CARE METHYLPRE ASSOCIATE ASSOCIATE DNISOLONE S S ACETATE 40 MG Encounters Encounter Start End Date Code Location Performer Type Date OFFICE 13759 [facility] CULAR & T VISIT SLEEP 25 CONSU MINUTES [facility] [address] [facility] [place] [facility] 7 7 [facility] T OFFICE [address]6632 [place] [address] 7 T VISIT ORTHOPAED 15 ICS PSC MINUTES [facility]ICE 36184 [facility] 7 CULAR & T VISIT SLEEP 15 CONSU MINUTES [facility] [place] [facility] [address] [facility] [place] [facility] [address] [facility] [place] [facility] 7 7 [facility] T OFFICE 07384 [facility] 7 7 ERSKINE III T NEW 30 CLINIC MINUTES PSC OFFICE 20280 [place] [address] 7 T VISIT ORTHOPAED 15 ICS PSC MINUTES OFFICE 41298 YAMIL TAYLOR OUTPATI 7 7 REGIONAL T NEW 45 PHYSICIAN MINUTES [facility] YAMIL - 7 7 [facility] [address] [facility] 7 7 CULAR & T VISIT SLEEP 15 CONSU [facility] 7 7 [facility] 7 [facility] T OFFICE 36943 [facility] 7 7 T VISIT ORTHOPAED 10 ICS [facility] [address] [facility] EM[facility]GENCY 13645 [facility] 7 7 [facility] T VISIT HIGH/URGE NT SEVERITY HOSPITAL INDIO - 7 7 [facility] T OFFICE 33595 YAMIL FUENTES OUTPATI 7 7 DIGESTIVE T NEW 45 CARE MINUTES CENTER OFFICE [address] [facility] 7 7 CULAR & T VISIT SLEEP 15 [facility]SU [facility] MUS[facility] - 7 7 [facility] T OFFICE [address] [facility] 7 7 CULAR & T VISIT SLEEP 25 CONSU MINUTES EMERGENCY 12241 [facility] DEPT 7 7 SHADY VISIT EMERGENCY HIGH PHYS SEVERITY& THREAT FUNCJ EMERGENCY 08847 [place] 7 7 [facility] T VISIT HIGH/URGE NT SEVERITY [facility] - 7 7 [facility] T OFFICE [address] [facility] 7 7 CULAR & T VISIT SLEEP 25 [facility] 7 [facility] INDIO - 7 7 [facility] JUDY - 7 7 [facility] T EMERGENCY [address] [facility] DEPT 7 7 SHADY VISIT EMERGENCY HIGH PHYS SEVERITY& THREAT FUN EMERGENCY 08367 KELSEAROSA ISELA KARLUK JR 7 7 [facility] T VISIT HIGH/URGE NT SEVERITY OFFICE 77695 [facility] 7 7 AND T VISIT MAGED, 25 PSC MINUTES OFFICE 80136 [facility] 7 7 T VISIT ORTHOPAED 10 ICS PSC MINUTES HOSPITAL INDIO - 6 6 [facility] EMERGENCY 31068 INDIO 6 6 [facility] VISIT LIMITED/M INOR PROB EMERGENCY 72600 JUSTIN CHATMAN 6 6 PHYSICIAN [facility] T VISIT HIGH/URGE NT SEVERITY OFFICE 15391 ALLERGY ZIEGLER MAR OUTPATIEN 6 6 PARTNERS T VISIT OF [place] 40 CO MINUTES OFFICE 62567 [facility] MARTI OUTPATIEN 6 6 GRE T VISIT ORTHOPAED 15 ICS PSC MINUTES HOSPITAL INDIO - 6 6 [facility] OFF[facility] 43653 [facility] MARTI OUTPATIEN 6 6 GRE T VISIT ORTHOPAED 15 ICS PSC MINUTES OFFICE 82888 ALLERGY ZIEGLER MAR OUTPATIEN 6 6 PARTNERS T VISIT OF [place] 25 CO MINUTES HOSPITAL INDIO - 6 6 [facility] OUTPATIEN [facility] INDIO - 6 6 [facility]EN [facility]ER[facility]ENC[facility] 82819 INDIO [address] [facility] T VISIT LIMITED/M INOR PROB EMERGENCY 46035 JUSTIN BLACKMAN 6 6 [facility] VISIT MODERATE SEVERITY HOSPITAL INDIO - 6 6 [facility] OUTPATIEN [facility] H[facility]PITAL INDIO - 6 6 [facility] OUTPATIEN [facility] HOSPITAL BOROSA ISELAON - 6 6 [facility] T EMERGENCY 46129 INDIO [address] [facility] T VISIT MODERATE SEVERITY HOSPITAL INDIO - 6 6 [facility] OFFICE 00272 [facility]AST[facility] SMITH OUTPATIEN 6 6 SOPHIE T VISIT ORTHOPAED 15 ICS PSC MINUTES OFFICE 06739 [facility] OUTPATIEN 6 6 [place] SOP[place]IE T VISIT ORTHOPAED 15 ICS PLC MINUTES OFFICE 67822 [facility] OUT[facility] 6 6 [facility] T VISIT HOSPITAL 15 MINUTES OFFICE 14684 ALLERGY ZIEGLER MAR OUTPATIEN 6 6 PARTNERS T VISIT OF [place] 25 CO MINUTES HOSPITAL INDIO - 5 5 [facility] 37929 ALLERGY ZIEGLER MAR OUTPATIEN 5 5 PARTNERS T VISIT OF [place] 25 CO MINUTES OFFICE 34576 [place] SCIYOJANA OUTPATIEN 5 5 VISION ANG T VISIT CENTER 10 [facility]UTES [facility] N [facility] 5 5 N OUTPATIEN COMMUNTIY T HOSPITA OFFICE 37978 [facility] OUTPATIEN 5 5 [place] SOP[place] T VISIT ORTHOPAED 25 ICS PLC MINUTES OFFICE 96427 [facility] OUTPATIEN 5 5 [place] SOP[place] T VISIT ORTHOPAED 15 ICS PLC MINUTES OFFICE 10650 BROCK LYNNE OUTPATIEN 5 5 AND JANE T VISIT MAGED, 15 PSC MINUTES OFFICE 09433 DEON LAFLEUR OUTPATIEN 5 5 N T VISIT NEUROLOGY 15 MINUTES OFFICE 83951 ALLERGY ZIEGLER MAR OUTPATIEN 5 5 PARTNERS T VISIT OF HILLIARD 25 CO MINUTES OFFICE 34310 ALLERGY ZIEGLER MAR OUTPATIEN 5 5 PARTNERS T NEW 45 OF HILLIARD MINUTES CO OFFICE 93289 [facility]EN[facility] LUIS OUTPATIEN 5 5 [place] SOPHIE T NEW 30 ORTHOPAED MINUTES ICS PLC OFFICE 02029 DEON LAFLEUR OUTPATIEN 5 5 N T VISIT NEUROLOGY 15 MINUTES HOSPITAL INDIO - 5 5 [facility] OUTPATIEN INC T EMERGENCY 48979 INDIO 5 5 [facility] DEPARTMEN INC T VISIT MODERATE SEVERITY HOSPITAL INDIO - 5 5 [facility]PAT[facility]EN [facility] N [facility] N OUTPATIEN COMMUNTIY T HOSPITA OFFICE 58884 DEON LAFLEUR OUTPATIEN 5 5 N T VISIT NEUROLOGY 15 MINUTES HOSPITAL IDNIO [facility] 5 5 [facility] - 5 5 N OUTPATIEN COMMUNTIY T HOSPITA OFFICE 09263 DEON LAFLEUR OUTPATIEN 5 5 N T VISIT NEUROLOGY 25 MINUTES [facility] - 4 4 N OUTPATIEN COMMUNITY T HOSPITA OFFICE 21538 SAMMI CORONADO ANTIONETTE OUTPATIEN 4 4 [employer] T NEW 30 MINUTES OFFICE 05095 GILLIAN FRENCH OUTPATIEN 4 4 GRE GRE T NEW 45 MINUTES OFFICE 23213 [facility] KAROLINA OUTPATIEN 4 4 PHYSICIAN JAM T VISIT S GROUP 15 MINUTES OFFICE 13176 MAGED MAGED OUTPATIEN 4 4 JANE JANE T VISIT 15 MINUTES [facility] - 4 4 [facility] IND[facility] - 4 4 [facility] T OFFICE 49388 MAGED MAGED OUTPATIEN 4 4 JANE JANE T VISIT 15 MINUTES EMERGENCY 89654 [facility] 4 4 [facility] EM[facility]GENC[facility] T VISIT SERVI MODERATE SEVERITY EMERGENCY 55974 [facility] L[facility]/MODER SEVERITY [facility] DEON - 4 4 N OUTPATIEN [facility] - 4 4 [facility] EMERGENCY 58018 [facility] [address] 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, DEN T NEW 30 PSC MINUTES HOSPITAL [facility] WORLEY 4 4 [facility] INDIO - 4 4 [facility]IEN [facility] OFFICE 02073 [facility] PETTEY OUTPATIEN 4 4 PHYSICIAN JAM T VISIT S GROUP 15 MINUTES Emergency SHERLYN Blackman MD (ER) 4 22:57 4 23:29 [facility] INDIO - 4 4 [facility] T EMERGENCY 93011 [facility] 4 4 [facility] T VISIT LOW/MODER SEVERITY EMERGENCY 54643 GILLIAN BLACKMAN 4 4 [facility]ER[facility]Y [facility] DEPARTMEN SERVICES T VISIT MODERATE SEVERITY [facility]OSPITAL [facility] - 3 3 [facility] OUTPATIEN INC T OFFICE 19951 CHARLES PERERA OUTPATIEN 3 3 DILMA CASILLAS T VISIT 25 MINUTES OFFICE 04761 [facility] PETTEY OUTPATIEN 3 3 PHYSICIAN ALFONSO T VISIT S GROUP 15 MINUTES OFFICE 39166 MIAN ORTIZ OUTPATIEN 3 3 MATT T VISIT CHIROPRAC 15 TIC CENTE MINUTES OFFICE 94436 DEON NEAL OUTPATIEN 3 3 N T VISIT NEUROLOGY 15 MINUTES [facility] 3 3 N OUTPATIEN [facility] HOSPITA OFFICE 41769 EAR, NOSE SHASHY OUTPATIEN 3 3 AND HARESH T VISIT THROAT 25 SPECIAL MINUTES OFFICE 55442 DEON NEAL OUTPATIEN 3 3 N T NEW 45 NEUROLOGY MINUTES OFFICE 40656 EAR, NOSE SHASHY OUTPATIEN 3 3 AND HARESH T VISIT THROAT 25 SPECIAL MINUTES [facility] N OUTPAT[facility] T HOSPITA OFFICE 95595 EAR, NOSE SHASHY OUTPATIEN 3 3 AND HARESH T NEW 45 THROAT MINUTES SPECIAL OFFICE 83290 JACKELYN HAYDEN OUTPATIEN 3 3 JAM JAM T NEW 45 MINUTES OFFICE 49328 CHARLES PERERA OUTPATIEN 3 3 DILMA CASILLAS T VISIT 15 MINUTES OFFICE 17919 CHARLES PERERA OUTPATIEN 3 3 DILMA CASILLAS T VISIT 25 MINUTES EMERGENCY 87480 [facility] 3 3 [facility] DEPARTMEN INC T VISIT LIMITED/M [facility] - 3 3 [facility] OUTPATIEN [facility] T EMERGENCY 62563 GILLIAN SELLERS 3 3 EMERGENCY DEPARTMEN SERVICES T VISIT HIGH/URGE NT SEVERITY EMERGENCY 19209 GILLIAN LOZOYA 3 3 EMERGENCY DEPARTMEN SERVICES T VISIT HIGH/URGE NT SEVERITY OFFICE 34082 [facility] DILMA CASILLAS T VISIT 15 MINUTES EMERGENCY 62388 [facility] [address] [facility] T VISIT LOW/MODER SEVERITY HOSPITAL [facility] - 2 2 [facility] 73578 [facility]ILLIAN LOUISE 2 2 EMERGENCY DEPARTMEN SERVICES T VISIT HIGH/URGE NT SEVERITY HOSPITAL [facility] - 2 2 [facility] OUTPATIEN [facility] INDIO [facility] 2 2 [facility] 53844 BROCK GUTIÉRREZ OUTPATIEN 2 2 JAM JAM T VISIT 15 MINUTES OFFICE 27848 BROCK GUTIÉRREZ OUTPATIEN 2 2 JAM JAM T VISIT 15 MINUTES EMERGENCY 11604 GILLIAN SELLERS DEPT 2 2 EMERGENCY VISIT SERVICES HIGH SEVERITY& THREAT [facility] [place] ISELAON - 2 2 [facility] T EMERGENCY 48494 [place] ISELAON 2 2 [facility] HOSPITAL T VISIT LOW/MODER SEVERITY HOSPITAL INDIO - 2 2 [facility] EMERGENC[facility] 38747 INDIO [address] [facility] T VISIT MODERATE SEVERITY EMERGENCY 61714 GILLIAN GARY 2 2 EMERGENCY III CHERYL DEPARTMEN SERVICES T VISIT HIGH/URGE NT SEVERITY HOSPITAL INDIO - 2 2 [facility] T OFFICE 37235 BROCK GUTIÉRREZ OUTPATIEN 2 2 ALFONSO HAMILTON T VISIT 15 MINUTES HOSPITAL INDIO - 2 2 [facility] T EMERGENCY 78407 INDIO [address] [facility] T VISIT LIMITED/M INOR [facility] [address] [facility] [address] [place] [address] 2 HOSPITAL T NEW 20 MINUTES [facility] [address] T OFFICE 85513 ANAYELI TREVIZO OUTPATIEN 2 2 T VISIT 15 MINUTES OFFICE 30928 [place] [address] HOSPITAL T VISIT 10 MINUTES OFFICE 19777 ANAYELI TREVIZO OUTPATIEN 2 2 T NEW 30 MINUTES OFFICE 86512 [facility] OUTPATI[facility] 2 2 [place] [facility] [place] VIS[facility] ORTHOPAED 15 [facility] MINUTES OFFICE 08561 MAGED LYNNE OUTPATIEN 1 1 JANE LARA T VISIT 25 MINUTES HOSPITAL INDIO - 1 1 [facility] OUTPAT[facility]EN [facility] T OFFICE 16106 [facility] [place] OUTPAT[place] 1 1 [place] [facility] NEW 30 [facility]THOPAED MINUTES [facility] [place] [facility] [address] [facility] [place] - 1 1 [facility] T EMERGENCY 39749 GILLIAN BLACKMAN 1 1 [facility]ISIT HIGH/URGE NT SEVERITY [facility]OSPITAL INDIO - 1 1 [facility] T EMERGENCY 07159 INDIO 1 [facility] LOW/MODER [facility]VERITY [facility] 1 [address] [place] [facility] IND[facility] - 1 1 [facility] EMERGENCY 46479 GILLIAN LARA DEPT 1 1 EMERGENCY VISIT SERVICES HIGH SEVERITY& THREAT FUNCJ EMERGENCY 18290 INDIO 1 1 [facility] T VISIT LOW/MODER SEVERITY [facility] INDIO [facility] 0 0 [facility] 34848 GILLIAN GARY 0 0 [facility] SERVICES T VISIT HIGH/URGE NT SEVERITY EMERGENCY 01830 INDIO 0 0 [facility] T VISIT LOW/MODER SEVERITY [facility] 01379 GILLIAN ESPOSITO 0 0 [facility] DEPARTMEN SERVICES T VISIT HIGH/URGE NT SEVERITY EMERGENCY 05905 [facility] N [facility] MODERATE SEVERITY [facility] 23857 [facility] 0 MEDICAL CITLALLI Santos T VISIT SERV 10 FOUNDATIO MINUTES EMERGENCY 64572 INDIO 0 0 [facility] T VISIT MODERATE SEVERITY [facility]OSPITAL INDIO - 0 0 [facility] OUTPAT[facility]EN [facility] T EMERGENCY 79281 GILLIAN BLACKMAN, 0 0 [facility] T VISIT HIGH/URGE ASSOCIATE NT S SEVERITY [facility] [place] [facility] [address] [facility] EMERGENCY 83204 INDIO 0 0 [facility] T VISIT HIGH/URGE NT SEVERITY EMERGENCY 58454 GILLIAN SIMMONS, DEPT 0 0 EMERGENCY NICOL M VISIT SERVICES HIGH SEVERITY& ASSOCIATE THREAT S [facility] INDIO - 0 0 [facility] 9 9 [facility] T OFFICE 57846 ESTRELLA MAKENZIE [facility] 9 9 MEDICAL [facility] VISIT SERV 15 FOUNDATIO MINUTES OFFICE 89193 ESTRELLA MAKENZIE [facility] 9 9 MEDICAL [facility] VISIT SERV 15 FOUNDATIO MINUTES OFFICE 15469 ESTRELLA MAKENZIE [facility] 9 9 MEDICAL [facility] NEW 30 SERV MINUTES [facility] INDIO [facility] 9 9 [facility] 9 [facility] 9 [facility] UNIVERSIT - 9 9 Y [facility] T OFFICE 99727 [facility] 9 9 Y T VISIT HOSPITAL 25 MINUTES OFFICE 97072 [facility] 9 9 Y T VISIT HOSPITAL 15 MINUTES OFFICE 66626 [facility] 9 9 [place] L T VISIT 10 MINUTES HOSPITAL UNIVERSIT - [address] [facility] HOSPITAL UNIVERSIT - 9 9 Y [facility] T OFFICE 64799 [facility] 9 9 [place] L T VISIT 15 MINUTES OFFICE 57221 [facility] 9 9 [place] T VISIT 15 MINUTES HOSPITAL UNIVERSIT - 9 9 Y [facility] T HOSPITAL [facility] 9 [facility] T HOSPITAL UNIVERSIT - 9 9 Y [facility] T OFFICE 20336 [facility] 9 9 [place] T VISIT 15 MINUTES OFFICE 20211 [facility] 9 9 Y T VISIT HOSPITAL 25 MINUTES HOSPITAL UNIVERSIT - 9 9 Y [facility] T OFFICE 11563 [facility] 9 9 [place] L [place] L T NEW 45 MINUTES OFFICE 75903 [facility] 9 9 Y T VISIT HOSPITAL 40 MINUTES OFFICE 46297 ADVANCED EUNICE, CONSULTAT 9 9 PAIN SOCORRO R ION MEDICIINE NEW/ESTAB PSC PATIENT 60 MIN [facility] 9 [facility] T OFFICE 04441 GLEN, GLEN, OUTPATIEN 8 8 DEVONTEMEREDITH WHITNEY T VISIT 10 MINUTES [facility] T OFFICE 87077 GLEN, GLEN, CONSULTAT 8 8 DEVONTE DEVONTE ION NEW/ESTAB PATIENT 40 MIN EMERGENCY 73048 INDIO 8 8 [facility] T VISIT LIMITED/M [facility] INDIO - 8 8 [facility] OUTPATIEN INC T OFFICE 22990 EDGAR HERNÁNDEZ OUTPATIEN 8 8 LESLEY Abdul T NEW 45 MINUTES OFFICE 51236 BEBE MCDUFFIE 8 8 RUDI SCHUSTER T T VISIT ASSOCIATE 15 S MINUTES OFFICE 23492 FAMILY LATRICAI, OUTPATIEN 8 8 CARE R ELIZABETH T VISIT ASSOCIATE 15 S MINUTES OFFICE 49749 FAMILY BENJI, J OUTPATIEN 8 8 CARE G T VISIT ASSOCIATE 15 S MINUTES OFFICE 06069 FAMILY FAMILY OUTPATIEN 8 8 CARE CARE T VISIT ASSOCIATE ASSOCIATE 15 S S MINUTES OFFICE 91416 FAMILY FAMILY OUTPATIEN 8 8 CARE CARE T VISIT ASSOCIATE ASSOCIATE 25 S S MINUTES OFFICE 13856 FAMILY FAMILY OUTPATIEN 8 8 CARE CARE T VISIT ASSOCIATE ASSOCIATE 15 S S MINUTES
--- OUTSIDE RECORDS SUMMARY | 2017-07-29 19:59 | External Medical Summary Rpt | CCD ---
Author Author , KELSY Organization KELSY Address Unknown Phone [email or web address] Care Team Providers Care Nurse Practitioner Per Diem Name Role Phone [employer] Unavailable Unavailable INC, [employer] Unavailable Unavailable INC, [employer] [facility] Unavailable Unavailable [place], [facility] [place] MAGED, MAGED Unavailable Unavailable MAGED JANE, MAGED Unavailable Unavailable JANE MAGED JANE, MAGED Unavailable Unavailable JANE GUTIERREZ, Unavailable Unavailable Kenya ARNETT, Unavailable Unavailable Kenya ORTIZ ARMS DON, ARMS DON Unavailable Unavailable [facility] Unavailable Unavailable [facility] Unavailable Unavailable MEDICAL GROUP, [facility] SILVER TER, SILVER TER Unavailable Unavailable BENSEMA MAR, BENSEMA Unavailable Unavailable MAR ADDISON, ALACIA L, Unavailable Unavailable ADDISON, ALACIA L [facility] Unavailable Unavailable [facility], [facility] Unavailable Unavailable [facility], [facility] Unavailable Unavailable [facility], [facility]OP[facility]EDICS [facility] Unavailable Unavailable HOSPITAL, [facility] [employer] Unavailable Unavailable GUADALUPE FRA, GUADALUPE FRA Unavailable Unavailable [facility] & Unavailable Unavailable SLEEP CON[facility], [facility], [facility] Unavailable Unavailable [facility], Unavailable Unavailable [facility] Un[facility]ST[facility], [facility] Unavailable Unavailable [facility] & Unavailable Unavailable DUBILIER, [facility] Unavailable Unavailable [facility]available Unavailable [facility]ICAL [facility], [facility] Unavailable Unavailable PHYSICIAN PRA, [facility] PHYSICIAN PR[facility], Unavailable Unavailable [facility] RENDON T, RENDON T Unavailable Unavailable AMIN, AMIN Unavailable Unavailable AMIN GRAEME, AMIN GRAEME Unavailable Unavailable Kenya LEBLANC COOPER, Unavailable Unavailable Kenya CYR, KLARISSA Unavailable Unavailable KLARISSA KASSANDRA, Unavailable Unavailable KLARISSA KASSANDRA EUNICE CYR, Unavailable Unavailable EUNICE CYR [facility] Unavailable Unavailable [facility] Unavailable Unavailable [facility], [facility] MARTI, MARTI Unavailable Unavailable MARTI GRE, MARTI Unavailable Unavailable [facility] Unavailable Unavailable ASSOCIAT, [facility] DAUKAS ROSALES, DAUKAS Unavailable Unavailable [...] MIKAL ELVIE BLACKMAN, Unavailable Unavailable ELVIE BLACKMAN [facility] Unavailable Unavailable HOSPITA, [facility] Unavailable Unavailable HOSPITA, [facility], Unavailable Unavailable [facility] CHARLES PERERA MD, Unavailable Unavailable ODELL PEREZ MD, Unavailable Unavailable ODELL BANEGAS GRAY ROB Unavailable Unavailable GREGONIS, GREGONIParul Unavailable Unavailable NIKKI RHO, NIKKI Unavailable Unavailable RHO NIKKI, RUBÉN G, Unavailable Unavailable NIKKI, RUBÉN G MART CEVALLOS Unavailable Unavailable HARPEL SONJA, HARPEL Unavailable Unavailable SONJA GERRY GARRETT Unavailable Unavailable LESLEY HERNÁNDEZ, Unavailable Unavailable LESLEY HERNÁNDEZ [facility] Unavailable Unavailable INC, [facility] Unavailable Unavailable HOSPITAL, [facility] Unavailable [facility]available HOSPITAL P, [facility] P PATTERSON MANNY, PATTERSON MANNY Unavailable Unavailable [facility], Unavailable Unavailable [facility] SMALL III, SMALL Unavailable Unavailable III ROMAN-ALEXANDRU, Unavailable Unavailable FRACISCO LEE, ROSA RODGERS JR, [place] JR Unavailable Unavailable ADRIANA MICHELE, Unavailable Unavailable ADRIANA MICHELE [facility] Unavailable Unavailable GROUP PS, [facility] Unavailable Unavailable [facility], [facility], Unavailable Unavailable [facility] KOSTELIC, LAURIE K, Unavailable Unavailable KOSTELIC, LAURIE K [facility] Unavailable Unavailable HOLDINGS, [facility], Unavailable Unavailable [facility] JAIR JR, JAIR JR Unavailable Unavailable JAIR JR DWI, JAIR Unavailable Unavailable JR DWI JAIR, YSABEL E, Unavailable Unavailable JAIR, YSABEL E RICE MOLD POLISHER, Unavailable Unavailable [facility] MOLD POLISHER, [facility] LOCKSTADT, LOCKSTADT Unavailable Unavailable DUONG ELIU, DUONG Unavailable Unavailable ELIU Pete Blackman MD, Unavailable Unavailable CITLALLI Smith MD, MAIR, Unavailable Unavailable THOMAS ROLAND Unavailable Unavailable [facility], Unavailable Unavailable [facility] GRE [facility], Unavailable Unavailable [facility] Unavailable Unavailable SERVICES, [facility] RIA WINSLOW, RIA Unavailable Unavailable [place] HAYDEN JAM, Unavailable Unavailable HAYDENALICIA HAYDEN JAM, Unavailable Unavailable HAYDENALICIA RAMOS JOHN, RICHARD Unavailable Unavailable JOHN MULBERRY, MARIELY T, Unavailable Unavailable MULBERRY, MARIELY T [facility] Unavailable Unavailable [facility], [facility] Unavailable Unavailable MRI [facility], [facility] MRI [facility] Maryellen ROME, Unavailable Unavailable Maryellen ROME [...] Unavailable Unavailable [facility], [facility] Unavailable Unavailable [facility] SERV[facility], [facility], Unavailable Unavailable [facility] ARCHER KAHLIL, Unavailable Unavailable ARCHER KAHLIL PARMJIT ELIU, PARMJIT [facility]available [facility] Unavailable [facility], [facility] Unavailable Unavailable [facility] Unavailable [...] 06-27-2017 [facility] LAR & SLEEP UNSPECIFIED CONSU [id number] ENCOUNTER 06-27-2017 [facility] FOR LAR & SLEEP PREPROCEDUR CONSU AL CARIOVASCUL AR EXAM J301 ALLERGIC 06-22-2017 [facility] RHINITIS [facility] DUE TO [place] POLLEN J3081 ALLERG 06-22-2017 [facility] RHINITIS PART[facility] OF D/T ANIMAL [place] CAT DOG HAIR & DANDER J3089 OTHER 06-22-2017 [facility] ALL[facility]GIC [facility] OF RHINITIS [place] E785 HYPERLIPIDE 06-17-2017 [facility] UNSPECIFIED HOSPITAL N390 URINARY 06-17-2017 [facility] INFECTION HOSPITAL SITE NOT SPECIFIED R5383 OTHER 06-17-2017 [facility] T15577 ENCOUNTER 06-17-2017 [facility] PREPROCEDUR HOSPITAL AL EXAMINATION R0602 SHORTNESS 06-03-2017 [facility] [place] OF BREATH RADIOLOGY R072 PRECORDIAL 06-03-2017 [facility] [place] PAIN RADIOLOGY M1711 UNILATERAL 06-02-2017 [facility] OSTEOARTHRI S PSC TIS RIGHT KNEE E875 HYPERKALEMI 05-31-2017 [facility] A LAR & SLEEP CONSU A048 OTHER 05-06-2017 [facility] SPE[facility]IF[facility] BACTERIAL [facility]OSPITAL INTESTINAL INFECTIONS R05 COUGH 05-03-2017 [facility] O60711 MIGRAINE 04-15-2017 NEW UNS NOT [place] INTRACT [...] & CAUSE OF DZ DUBILIER CLASSIFIED ELSW S38162 UNSPECIFIED 02-02-2017 [facility] ASTHMA [facility] UNCOMPLICAT HOSPITAL ED K317 POLYP OF 02-02-2017 [facility] & DUODENUM DUBILIER K3189 OTHER 02-02-2017 [facility] DISEASES OF CLAIRE & STOMACH DUBILIER AND DUODENUM R079 CHEST PAIN 02-02-2017 [place] UNSPECIFIED [facility] HOSPITAL R1310 DYSPHAGIA 02-02-2017 [place] UNSPECIFIED [facility] HOSPITAL A73473 OTHER LONG 02-02-2017 [facility] TERM [facility] CURRENT HOSPITAL DRUG THERAPY G479 SLEEP 01-25-2017 [facility] DISORDER [facility] UNSPECIFIED HOSPITAL R0683 SNORING 01-25-2017 [facility] J209 ACUTE 01-09-2017 [facility] BRONCHITIS N EMERGENCY UNSPECIFIED PHYS R509 FEVER 01-09-2017 [facility] [place] UNSPECIFIED RADIOLOGY K39158 PERSONAL 01-09-2017 [facility] HISTORY OF [facility] CALCULI Z886 ALLERGY 01-09-2017 [place] STATUS TO [facility] ANALGESIC HOSPITAL AGENT STATUS R1013 EPIGASTRIC 12-31-2016 [facility] W02885 UNSPECIFIED 12-28-2016 [facility] LAR & SLEEP WITH ACUTE CONSU EXACERBATIO N R0600 DYSPNEA 12-13-2016 [facility] UNSPECIFIED [facility] [place] R9439 ABNORMAL 12-13-2016 [facility] RESULT [facility] CARDIOVASCU MEDICAL LR FUNCTION GROUP STUDY Z8249 FAMILY HX 12-09-2016 [facility] ISCHEMIC LAR & SLEEP HRT DZ OTH CONSU DZ CIRC SYSTEM M4806 SPINAL 12-03-2016 [facility] STENOSIS [facility]THOP[facility]EDIC LUMBAR S PSC REGION E7800 PURE 11-24-2016 [facility] HYPERCHOLES [facility] HOS[facility] TEROLEMIA INC UNSPECIFIED M545 LOW BACK 11-12-2016 [facility] PAIN ORTHOPAEDIC S PSC B373 CANDIDIASIS 11-02-2016 [facility] AND OF VULVA MAGED, AND VAGINA PSC J68610 CHRONIC 11-02-2016 [facility] MIGRAINE MAGED, W/O AURA PSC INTRACT W/O STAT MIGR J0190 ACUTE 11-02-2016 [facility] SINUSITIS MAGED, UNSPECIFIED PSC Z6832 BODY MASS 11-02-2016 [facility] INDEX BMI MAGED, 32.0-32.9 PSC ADULT H89709 PRESENCE OF 10-05-2016 [facility] 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 N22744 PRESENCE OF 10-05-2016 [facility] LEFT [facility]THOP[facility]IC ARTIFICIAL S PSC KNEE JOINT J680 BRONCHITIS 09-28-2016 [facility] & PNEUMONIT PHYSICIANS, D/T CHEM [facility] GASE FUME VAPOR K3509OT TOXIC 09-28-2016 [facility] EFFECT [facility] P ACCIDENTAL INIT ENC C21798 UNS PLACE 09-28-2016 [facility] UNS [facility] P PLACE OF OCCUR EXT G4489 OTHER 09-08-2016 [facility] HEADACHE PART[facility]ERS OF SYNDROME [place] J0180 OTHER ACUTE 09-08-2016 [facility] SINUSITIS [facility] [place] J4530 MILD 09-08-2016 [facility] PERSISTENT PARTNERS OF ASTHMA [place] UNCOMPLICAT ED U51447 SPONDYLOSIS 08-05-2016 [place] W/O MEDICAL MYELOPATH/R IMAGING ASS ADICULPATHY LS RGN M5126 OTH 08-05-2016 [place] INTERVERTEB MEDICAL RAL DISC IMAGING ASS DISPLACEMEN T LUMBAR RGN M1712 UNILATERAL 07-22-2016 [facility] OSTEOARTHRI S PSC TIS LEFT KNEE H1013 ACUTE 07-16-2016 [facility] TIS BILATERAL Z1231 ENCOUNTER 05-12-2016 [place] SCREENING MEDICAL MAMMO MALIG IMAGING ASS NEOPLASM BREAST N951 MENOPAUSAL 04-29-2016 [facility] AND [facility] PH[facility]ANS CLIMACTERIC GROUP STATES D06946 ENCOUNTER 04-29-2016 [facility] CLIENT PROGRAM MANAGER EXAM PHYSICIANS GENERAL RTN GROUP W/O ABNORMAL FIND Z1212 ENCOUNTER 04-29-2016 [facility] SCREENING PHYSICIANS MALIGNANT GROUP NEOPLASM RECTUM Z7253 HIGH RISK 04-29-2016 [facility] BISEXUAL PHYSICIANS BEHAVIOR GROUP G8918 OTHER ACUTE 04-24-2016 [facility] PHYSICIANS, POSTPROCEDU PLLC RAL PAIN P32956 PAIN IN 04-24-2016 [facility] LEFT [facility]NEE [facility] INC M179 OSTEOARTHRI 04-14-2016 [facility] TIS OF KNEE ANESTHESIA ASSOCIAT UNSPECIFIED Z0001 ENCOUNTER 04-06-2016 [facility] MEDICAL INCORPORAT EXAM W/ABNORMAL FIND M1611 UNILATERAL 03-30-2016 [facility] O[facility] TIS RIGHT HIP H6000 ABSCESS OF 02-25-2016 [facility] EXTERNAL PHYSICIANS, EAR PLLC UNSPECIFIED EAR H6003 ABSCESS OF 02-25-2016 [facility] EXTERNAL [facility] HOS[facility] EAR INC BILATERAL A42302Y OTH TEAR 12-17-2015 [facility] [place] [facility] MENISCUS S PLC CURR INJ LT KNEE SBSQT ENC J029 ACUTE 12-02-2015 [facility] UNSPECIFIED J4520 MILD 11-28-2015 [facility] INTERMITTEN PARTNERS OF T ASTHMA [place] UNCOMPLICAT ED Z8739 PERSONAL HX 09-22-2015 [facility] MUSCULOSKEL INC SYS&CONNECT V TISS Q09392 CHONDROMALA 08-19-2015 [facility] LEFT COMMUNTIY KNEE HOSPITA J67888M OTH TEAR 08-19-2015 [place] [facility] ANESTHESIA MENISCUS GROUP PS CURR INJ LT KNEE INIT ENC O30962 MIGRAINE 07-04-2015 [facility] W/O AURA NEUROLOGY INTRACT W/O STAT MIGRAINOSUS 9325 ALLERGIC 07-02-2015 [facility] RHINITIS PARTNERS OF DUE TO [place] POLLEN 4772 ALLERGIC 07-02-2015 [facility] RHINITIS PART[facility]ERS OF D[facility] TO [place] ANIMAL HAIR AND DANDER 4717 ALLERGIC 07-02-2015 [facility] RHINITIS PARTNERS OF DUE TO [place] OTHER ALLERGEN 54876 ASTHMA, 06-13-2015 [facility] UNSPECIFIED PARTNERS OF , [place] UNSPECIFIED STATUS 7840 HEADACHE 06-13-2015 [facility] [place] 4720 CHRONIC 05-23-2015 [place] [address] OSTEOARTHRO 05-21-2015 [facility] [place] SIS UNSPEC ORTHOPAEDIC WHETHER S PLC GEN/LOC LOWER LEG 19102 CHRONIC 04-03-2015 [facility] MIGRAINE NEUROLOGY W/O AURA W/O INTRACTABLE W/O SM V7612 OTHER 03-31-2015 [place] SCREENING MEDICAL MAMMOGRAM IMAGING ASS 6272 SYMPTOMATIC [...] AND ABSCESS MEM HOSP OF FACE INC 20315 NEW DAILY 03-06-2015 [facility] PERSISTENT COMMUNTIY HEADACHE HOSPITA 7920 NONSPECIFIC 03-06-2015 [facility] ABNORMAL CLAIRE & FINDING IN [facility] [place] [address] PAIN IN 03-04-2015 [facility] JOINT, COMMUNTIY LOWER LEG HOSPITA V571 OTHER 02-07-2015 [facility] PHYSICAL [facility] THERAPY INC 55405 MIGRAINE 02-04-2015 [facility] [place] [facility]SP W/O RADIOLOGY INTRACT W/O STATUS MIGRAINOSUS 7231 CERVICALGIA 01-29-2015 [facility] 01289 PRIMARY 10-01-2014 [facility] LOCALIZED TECHNOLOGIE OSTEOARTHRO S INC SIS LOWER LEG 7295 PAIN IN 10-01-2014 [facility] SOFT TECHNOLOGIE TISSUES OF S INC LIMB 78643 PAIN IN 09-10-2014 [facility] [place] JOINT RADIOLOGY [place]ELVIC REGION AND THIGH 25767 DISORDER OF 09-10-2014 [employer] BONE AND MSO, [facility] CARTILAGE UNSPECIFIED 15343 GENU VARUM 09-10-2014 [employer] V5869 LONG-TERM 09-10-2014 [facility] (CURRENT) COMMUNITY USE OF HOSPITA OTHER MEDICATIONS 09224 UNSPECIFIED 08-17-2014 [facility] SUBJECTIVE GRE VISUAL DISTURBANCE 28904 OTHER 08-17-2014 [facility] VISUAL GRE DISTORTIONS AND ENTOPTIC PHENOMENA 77460 UNSPECIFIED 08-17-2014 [place] [address] SCLERAL 08-17-2014 [facility] ECTASIA GRE 11109 CHONDROMALA 08-01-2014 [facility] ANDREA PHYSICIANS GROUP V0481 NEED 07-16-2014 [facility] PROPHYLACTI PHARMACY C #591 VACCINATION &INOCULATIO N FLU 57111 RESTLESS 05-16-2014 MAGED JANE LEGS SYNDROME 86665 INSOMNIA 05-16-2014 [facility] UNSPECIFIED 7172 DERANGEMENT 04-08-2014 [facility] OF [facility]OS[facility] POSTERIOR INC HORN OF MEDIAL MENISCUS 00182 DERANGEMENT 04-08-2014 [facility] OF MEM HOS[facility] ANTERIOR INC HORN OF LATERAL MENISCUS 13772 PLICA 04-08-2014 [facility] SYNDROME PHYSICIANS GROUP 8360 TEAR MEDIAL 04-08-2014 [facility] CARTILAGE PHYSICIANS OR MENISCUS GROUP KNEE CURRENT 8361 TEAR 04-08-2014 [facility] LATERAL MEM HOSP CARTILAGE INC OR MENISCUS KNEE CURRENT 2724 OTHER AND 04-03-2014 [facility] UNSPECIFIED [facility] P HYPERLIPIDE STEPH 6829 CELLULITIS 03-28-2014 MAG[facility] JANE AND ABSCESS OF UNSPECIFIED SITE 05787 ABDOMINAL 03-28-2014 [facility] PAIN OTHER SPECIFIED SITE 6869 UNSPEC 03-05-2014 [facility] LOCAL COMMUNITY INFECTION HOSPITA SKIN&SUBCUT ANEOUS TISSUE 7048 OTHER 03-05-2014 [facility] SPECIFIED COMMUNITY DISEASE OF HOSPITA HAIR&HAIR FOLLICLES 63528 TOXIC 03-05-2014 [facility] EFFECT OF COMMUNITY OTHER HOSPITA SUBSTANCES 9953 ALLERGY 03-05-2014 [facility] UNSPECIFIED N EMERGENCY NOT SERVI ELSEWHERE CLASSIFIED 66698 DEGEN 03-04-2014 [place] LUMBAR/LUMB MEDICAL OSACRAL IMAGING ASS INTERVERTEB RAL DISC 7242 LUMBAGO 03-04-2014 [facility] 8472 LUMBAR 03-04-2014 [facility] SPRAIN AND N EMERGENCY STRAIN PHYS 99091 CONTUSION 03-04-2014 [facility] OF KNEE N EMERGENCY PHYS E8888 OTHER FALL 03-04-2014 [facility] N EMERGENCY PHYS 27446 SYNOVIAL 02-22-2014 [facility] CYST OF PHYSICIANS POPLITEAL GROUP SPACE 20640 OTHER 01-25-2014 [place] MALAISE AND MOLD POLISHER, PSC FATIGUE 20828 LOSS OF 01-25-2014 [place] WEIGHT MOLD POLISHER, PSC 6279 UNSPECIFIED 12-27-2013 [facility] MENOPAUSAL& INC POSTMENOPAU GRIS DISORDER 11344 EFFUSION OF 12-24-2013 [place] LOWER LEG MEDICAL JOINT IMAGING ASS 784.0 784.0 10-18-2013 [facility] HEADACHE [facility] V14.8 V14.8 10-18-2013 [facility] HX-DRUG [facility] ALLERGY [facility] V148 PERSONAL 10-18-2013 [facility] HISTORY MEM HOSP ALLERGY OTH INC SPEC MEDICINAL AGTS 38960 MASTODYNIA 06-19-2013 [facility] 6101 DIFFUSE 06-14-2013 CHARLES PERERA MD MASTOPATHY 88792 OTHER SIGN 06-14-2013 CHARLES PERERA MD IN BREAST 7243 SCIATICA 06-06-2013 [facility] [facility] 7393 NONALLOPATH 06-06-2013 [place] IC LESION CHIROPRACTI OF LUMBAR C CENTE REGION NEC 7394 NONALLOPATH 06-06-2013 [place] IC LESION CHIROPRACTI OF SACRAL C CENTE REGION NEC 7395 NONALLOPATH 06-06-2013 [place] IC LESION CHIROPRACTI OF PELVIC C CENTE REGION NEC 56044 CHRONIC 05-18-2013 [facility] MIGRAINE NEUROLOGY W/O W/INTRACTAB LE W/O SM 470 DEVIATED 04-18-2013 [facility] NASAL COMMUNITY SEPTUM HOSPITA 4739 UNSPECIFIED 04-18-2013 [place] SINUSITIS ANESTHESIA GROUP PS 4780 HYPERTROPHY 04-18-2013 [facility] OF NASAL COMMUNITY TURBINATES HOSPITA 63592 OTHER 04-18-2013 [facility] DISEASES OF COMMUNITY NASAL HOSPITA CAVITY AND SINUSES V7283 OTHER 04-12-2013 [facility] SPECIFIED COMMUNITY PRE-OPERATI HOSPITA VE EXAMINATION 7391 NONALLOPATH 03-02-2013 [place] IC LESION CHIROPRACTI OF CERVICAL C CENTE REGION NEC 69783 CHRONIC 2013 [facility] TENSION JAM TYPE HEADACHE 44210 SENILE 2013 [facility] RETICULAR JAM DEGENERATIO N PERIPHERAL RETINA 88332 DECREASED 12-08-2012 [place] [address] CONTUSION 11-11-2012 [facility] BACK EMERGENCY SERVICES 7244 THORACIC/JANINE 09-01-2012 [facility] NEUR[facility]/RA SERVICES DICULITIS UNSPEC 7202 SACROILIITI 08-07-2012 [place] S NOT CHIROPRACTI ELSEWHERE C CENTE CLASSIFIED 11414 DISRUPTION 08-03-2012 [facility] EXTERNAL REFERNCE OPERATION LABORATORIE SURGICAL S WOUND 7933 NONSPECIFIC 07-19-2012 [place] ABN FINDNG CHIROPRACTI RAD&OTH C LEIGHE EXAM BILARY TRCT 3558 UNSPECIFIED 07-04-2012 [facility] MONONEURITI S OF LOWER LIMB 8479 SPRAIN AND 07-04-2012 [facility] STRAIN OF UNSPECIFIED SITE OF BACK 5589 OTH&UNSPEC 05-16-2012 [facility] NONINFECTIO EMERGENCY US SERVICES GASTROENTER ITIS&COLITI S 66881 ABDOMINAL 05-16-2012 [facility] [place] PAIN, RADIOLOGY UNSPECIFIED SITE V145 PERSONAL 05-16-2012 [facility] HISTORY OF COMMUNITY ALLERGY TO HOSPITAL NARCOTIC AGENT 7094 FOREIGN 05-01-2012 [place] BODY EMERGENCY GRANULOMA SERVICES SKIN&SUBCUT ANEOUS TISSUE 7296 RESIDUAL 05-01-2012 [place] FOREIGN MEDICAL BODY IN IMAGING ASS SOFT TISSUE 8930 OPEN WOUND 05-01-2012 [place] TOE WITHOUT EMERGENCY MENTION SERVICES COMPLICATIO N E9179 OTHER 05-01-2012 [place] STRIKING EMERGENCY AGAINST SERVICES W/WO SUBSEQUENT FALL V065 NEED 05-01-2012 [facility] PROPHYLACTI MEM HOSP C INC VACCINATION W/TETANUS-D IPHTH 4619 ACUTE 01-05-2012 [facility] SINUSITIS, UNSPECIFIED 4779 ALLERGIC 01-05-2012 [facility] RHINITIS CAUSE UNSPECIFIED 27725 NON-HEALING 11-19-2011 [facility] WOUND NEC 09639 DISRUPTION 11-16-2011 [facility] UNSPECIFIED 62623 PAIN IN 10-11-2011 [facility] [place] JOINT, ORTHOPAEDIC ANKLE AND S PLC FOOT 6918 OTHER 09-17-2011 [facility] ATOPIC DERMATITIS AND RELATED CONDITIONS 7820 DISTURBANCE 09-10-2011 [place] OF SKIN MEDICAL SENSATION IMAGING ASS E8889 UNSPECIFIED 06-22-2011 [facility] [place] FALL RADIOLOGY 8792 OPEN WOUND 04-20-2011 [place] ABD WALL COMMUNITY ANT WITHOUT HOSPITAL MENTION COMP 85162 OTHER 04-20-2011 [facility] [place] POSTOPERATI RADIOLOGY VE INFECTION NEC 55603 UNSPECIFIED 03-10-2011 [facility] URETHRITIS EMERGENCY SERVICES 3569 UNSPEC 02-02-2011 [facility] HEREDIT&IDI [facility] OPATHIC HOSP PERIPHERAL NEUROPATHY 70321 CALCANEAL 01-14-2011 [facility] [place] SPUR RADIOLOGY 84664 HEMATURIA 01-12-2011 [place] UNSPECIFIED EMERGENCY SERVICES 7880 RENAL COLIC 01-12-2011 [place]ENC[facility] SERVICES 9176 FOOT&TOE 08-31-2010 [facility] FB W/O COMMUNITY SOL OPN HOSPITA WND&W/O MENTION INF 55596 ERYTHEMA 06-03-2010 [facility] DUE TO BURN EMERGENCY OF BREAST SERVICES 33775 ERYTHMA DUE 06-03-2010 [facility] BURN [facility]ST [facility] WALL EXCLD INC BREAST&[place]IP[place] LE 80263 ERYTHEMA 06-03-2010 [facility] D[facility] TO [facility] EMERGENCY OF SERVICES ABDOMINAL WALL 25675 ERYTHEMA 06-03-2010 [facility] TO [facility] EMERGENCY SERVICES UNSPECIFIED SITE LOWER LIMB 61333 ERYTHEMA 06-03-2010 [facility] EMERGENCY OF KNEE SERVICES 78503 ERYTHEMA 06-03-2010 [facility] DUE TO BURN [facility]OS[facility] OF THIGH INC 515 POSTINFLAMM 05-04-2010 [facility] [place] ATORY RADIOLOGY PULMONARY FIBROSIS 7962 ELEVATED BP 05-03-2010 [facility] WITHOUT DX HOSPITA HYPERTENSIO N 8921 OPEN WOUND 05-03-2010 [place] OF FOOT EMERGENCY EXCEPT TOE SERVICES ALONE COMPLICATED E915 FOREIGN 05-03-2010 [facility] ACCIDENTALL SERVICES Y ENTERING OTHER ORIFICE 7862 COUGH 01-28-2010 [facility] [place] RADIOLOGY 22950 REFLUX 12-09-2009 [facility] ESOPHAGITIS SRIDHAR [facility] 65023 ATROPHIC 12-09-2009 PATHOLOGY & GASTRITIS CYTOLOGY WITHOUT LAB MENTION OF HEMORRHAGE 74894 UNS 12-09-2009 [place] GASTRITIS&G ANESTHESIA ASTRODUODIT GROUP PSC IS W/O MENTION HEMORR 5533 DIAPHRAGMAT 12-09-2009 [facility] W/O [facility] MENTION HOSPITAL OBSTRUCTION /GANGREN 76811 CHEST PAIN 12-09-2009 [facility] UNSPECIFIED NKLIN, ROSA 94143 OTHER CHEST 12-09-2009 [facility] 39742 NAUSEA 12-09-2009 [facility] 78420 ABDOMINAL 12-09-2009 [facility] PAIN, NKLIN, EPIGASTRIC [place] 36116 ESOPHAGEAL 11-28-2009 [facility] PROF SERV 58090 ABDOMINAL 11-28-2009 [facility] 90640 UNSPECIFIED 10-06-2009 [facility] [place] 02168 OSTEOARTHRO 06-13-2009 [facility] [place] S UNSPEC RADIOLOGY WHETHER GEN/LOC UNSPEC SITE 56897 DIARRHEA 05-09-2009 [facility] 8793 OPEN WOUND 05-09-2009 [facility] WALL ANTERIOR COMPLICATED 9597 INJURY 04-22-2009 [facility] [place] OTHER&UNSPE RADIOLOGY CIFIED KNEE LEG ANKLE&FOOT 7078 CHRONIC 04-03-2009 [facility] OTHER SPECIFIED SITE 6822 CELLULITIS 04-02-2009 [facility], AND ABSCESS [place] L OF TRUNK 25021 OTHER 03-01-2009 [facility] DYSRHYTHMIA S 7851 PALPITATION 03-01-2009 [facility] 5718 OTHER 02-26-2009 [facility] L[facility] 8795 OPEN WOUND 02-26-2009 [facility], OF [place] L ABDOMINAL WALL LATERAL COMPLICATED V762 SCREENING 02-05-2009 PATHOLOGY & FOR CYTOLOGY [facility] LAB NEOPLASM OF THE CERVIX 8794 OPEN WOUND 12-25-2008 [facility] OF ABD WALL [place] INC LATERAL WITHOUT MENTION COMP 02071 CHRONIC 11-20-2008 [facility] DUE TO PAIN TRAUMA MEDICIINE PSC 7246 DISORDERS 11-20-2008 [facility] OF SACRUM PAIN MEDICIINE PSC 7265 ENTHESOPATH 11-20-2008 [facility] Y OF HIP PAIN REGION MEDICIINE PSC 25213 PAIN IN 10-30-2008 [facility] [place] JOINT, RADIOLOGY SHOULDER REGION 3550 LESION OF 09-13-2008 [facility] PSC 15492 DISPLCMT 08-20-2008 [facility] [place] LUMBAR RADIOLOGY 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 7213 LUMBOSACRAL 05-03-2008 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 6927 [facility] 03-20-2008 [facility] O[facility] INC DUE SOLAR RADIATION 12132 OTHER 03-15-2008 [facility] AMYLOIDOSIS [facility] P 3384 CHRONIC 03-15-2008 [facility] PAIN [place] Abdul SYNDROME 7292 UNSPECIFIED 02-12-2008 [facility] NEURITIS AND RADICULITIS 7226 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-2007 [facility] INTERVERTEB RAL DISC SITE UNSPEC 67187 SPONDYLOSIS 11-21-2007 [facility] SITE [...] Ac MG ti /2 ve ML AL SC 00 01 0 No OM 64 -1 [...] Hgb A1c Bld (12-13-2016 11:34) Comment: The [place] [employer] recommends maintenance of Hemoglobin A1C [...] Procedure DOS Code Location Performer Comment PROF [facility] 10319 ALLERGY ZIEGLER ALLG 7 PARTNERS IMMNTX X OF [place] W/PR[place] [address] JUDY KIM THYROID [address] [place] [address] NG HORMONE TSH BLOOD 74506 KELSEAFOUZIA ENAMORADOFOUZIA COUNT [address] [place] [address] AUTOMATED PROTHROMB 38242 JUDY KIM IN TIME [address] [place] [address] THROMBOPL 32682 JUDY KIM ASTIN [address] [place] [address] PARTIAL PLASMA/WH OLE BLOOD CUL 06426 JUDY ENAMORADOFOUZIA PRSMPTV 7 [facility] ORGANISM SCRN W/COLONY ESTIMJ ECG 77839 [facility] ROUTINE 7 [facility] W/LEAST 12 LDS TRCG ONLY W/O I&R COLLECTIO 96718 [facility] N VENOUS 7 [facility] VENIPUNCT URE LIPID 02306 [facility] PANEL 7 [facility] COMPREHEN 51657 [facility] SIVE 7 [facility] PANEL URNLS DIP [address] ST[facility] HOSPITAL LET REAGENT AUTO MICROSCOP Y HEMOGLOBI 71441 [facility] N [address] [facility] STEFANO A1C PROF [facility] 38990 ALLERGY ZIEGLER ALLG 7 PARTNERS IMMNTX X OF H[place] W/PRV CO ALLGIC XTRCS NJXS CT THORAX [address] HOSPITAL T MATERIAL RADIOLOGI 58279 CHASTITY ROWEO C 7 EXAMINATI ORTHOPAED ON KNEE 3 ICS PSC VIEWS COLLECTIO 66159 [facility] N VENOUS 7 [facility] VENIPUNCT URE BASIC 51848 [facility] METABOLIC [address] [place] [address] [place] [address] [facility] HPYLORI [address] [place] [address] HOSPITAL BRNCDILAT 82640 [facility] RSPSE 7 [facility] [place] [address] [facility] DIFFUSING [address] [place] [address] HOSPITAL PLETHYSMO 31960 [facility] GRAPHY [address] [place] [address] HOSPITAL VOLUMES W/WO AIRWAY RESIST PROF [facility] 41972 ALLERGY ZIEGLER ALLG 7 PARTNERS IMMNTX X OF [place] W/PRV CO ALLGIC XTRCS NJXS BLOOD 25034 YAMIL TRIVEDI 7 [facility]ICAL AUTO&AUTO CENTE CENTE DIFRNTL WBC SPMTRY 95979 YAMIL TAYLOR W/VC 7 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 Y CLARA PRA W/WO MXML VOL VNTJ ANTIBODY 12876 YAMIL LOBO BLASTOMYC 7 [facility] CENT ANTIBODY 97696 YAMIL LOBO HISTOPLAS 7 [facility] COLLECTIO 60109 YAMIL LOBO N VENOUS 7 [facility] VENIPUNCT [facility] ABRAHAM URE ANTIBODY 89600 YAMIL LOBO ASPERGILL 7 [facility] CENTE PREPJ& 41169 ALLERGY ZIEGLER ALLERGEN 7 PARTNERS IMMUNOTHE OF H[place] RAPY CO 1/ACID PLANT HELPER ANTIGEN PROF SVCS 87887 ALLERGY ZIEGLER ALLG 7 PARTNERS IMMNTX X OF [place] W/[place] [address] [facility] SURG [address] [place] [address] GROSS&MIKAL ROSCOPIC EXAM IMHISTOCH 37216 [facility] EM/CYTCHM [address] [place] [address] ANTIBODY STAIN PROCEDURE PRESSURIZ 89870 [facility] ED/NONPRE [address] [place] [address] INHALATIO N TREATMENT EGD 97814 [facility] TRANSORAL [address] [place] [address] SINGLE/MU LTIPLE POLYSOM 96024 GRAEME AMIN AMIN 6/>YRS 7 MD SLEEP 4/> CONSULTIN ADDL G SRV [place] ATTND POLYSOM 93287 [facility] 6/>YRS 7 [facility] SLEEP 4/> HOSPITAL HOSPITAL ADDL [place] ATTND RADIOLOGI 54686 [facility] MARTI C 7 EXAMINATI ORTHOPAED ON KNEE 3 ICS PSC VIEWS INJECTION J1030 [facility] MARTI 7 METHYLPRE ORTHOPAED DNISOLONE ICS PSC ACETATE 40 MG ARTHROCEN 66874 [facility] MARTI TESIS 7 ASPIR&/IN ORTHOPAED J MAJOR ICS PSC JT/BURSA W/O US PROF SVCS 55987 ALLERGY ZIEGLER ALLG 7 PARTNERS IMMNTX X OF [place] W/PRV CO ALLGIC XTRCS NJXS IAADIADOO [address] HOSPITAL PRESSURIZ 45464 JUDY KIM ED/NONPRE 7 [facility] INHALATIO N TREATMENT RADIOLOGI 66670 [facility] [address] HOSPITAL VIEWS FRONTAL&L ATERAL COLLECTIO 25281 [facility] N VENOUS 7 [facility] BLOOD INC INC VENIPUNCT URE BASIC 85341 [facility] METABOLIC 7 [facility] PANEL INC INC CALCIUM TOTAL LIPID 61540 [facility]ON[facility] PANEL 7 [facility] COLLECTIO 35173 [facility] N VENOUS 7 [facility] BLOOD [facility] VENIPUNCT URE COMPREHEN 95933 [facility]ON[facility] SIVE 7 [facility] METABOLIC [facility] PANEL HEMOGLOBI 67057 [facility] N 7 [facility]ALTH HEALTH GLYCOSYLA [facility] STEFANO A1C INJECTION J1644 [facility] HEPARIN 7 HEALTH Source[employer] SODIUM [facility] PER 1000 UNITS INTRDUCR/ C1894 [facility] SHEATH 7 [facility] NOT GUID [facility] INTRACARD EP NON-LASR GUIDE C1769 [facility] WIRE 7 [facility] [place] INJECTION J2250 [facility] CHEONDOISM 7 [facility] MIDAZOLAM [facility] HCL PER 1 MG LOCM Q9967 [facility] CHEONDOISM [phone] 7 HEALTH HEALTH MG/ML [facility] IODINE CONCENTRA TION PER ML INJECTION J3010 [facility] CHEONDOISM FENTANYL 7 [facility] CITRATE [facility] 0.1 MG CATH PLMT 74953 [facility] THOMAS L HRT & 7 [facility] MEDICAL W/NJX & GROUP ANGIO IMG S&I CREATINE 72538 JUDY KIM KINASE MB 7 [facility] ONLY BLOOD 91470 JUDY KIM COUNT 7 [facility] AUTO&AUTO DIFRNTL WBC RADIOLOGI 07606 [place] GARRETT C 7 RADIOLOGY EXAMINATI [place] [address] [facility] TROPONIN 7 [facility] JAG BASIC 95650 [facility] METABOLIC 7 [facility] CALCIUM TOTAL FIBRIN 97460 [facility] DGRADJ 7 [facility] D-DIMER QUANTITAT JAG ECG 13050 [facility] ROUTINE 7 [facility] W/LEAST 12 LDS TRCG ONLY W/O I&R LOCM Q9965 [facility]199 [facility] MG/ML ORTHOPAED IODINE ICS PSC CONCENTRA TION PER ML NJX 98094 [facility] DX/THER 7 SBST ORTHOPAED INTRLMNR ICS PSC LMBR/SAC W/IMG GDN INJECTION J1040 [facility] 7 METHYLPRE ORTHOPAED DNISOLONE ICS PSC ACETATE 80 MG PROF SVCS 45253 ALLERGY ZIEGLER ALLG 7 PARTNERS IMMNTX X OF [place] W/PRV CO ALLGIC XTRCS NJXS CV STRS 41650 GRAEME AMIN WAESPE TST 7 XERS&/OR CONSULTIN RX CONT G SRV ECG I&R ONLY NONINVASI 41233 GRAEME AMIN AMIN VE 7 EAR/PULSE CONSULTIN OXIMETRY G SRV OVERNIGHT MONITOR MYOCARDIA 06298 GRAEME AMIN HALIE L SPECT 7 MULTIPLE CONSULTIN STUDIES G SRV TECHNETIU A9500 [facility] M TC-99M 7 [facility] DX PER STUDY DOSE CV STRS 85587 [facility] TST 7 [facility] XERS&/OR [facility] RX CONT ECG TRCG ONLY ECHO 86876 GRAEME AMIN AMIN TTHRC R-T 7 2D CONSULTIN W/WOM-MOD G SRV E COMPL SPEC&[place] [address] [facility] THYROID 7 [facility] STIMULATI INC INC NG HORMONE TSH LIPID 46861 [facility] B[facility] PANEL 7 [facility] INC INC COLLECTIO 12290 [facility] N VENOUS 7 [facility] BLOOD INC INC VENIPUNCT URE POTASSIUM 66269 [facility] SERUM 7 [facility] PLASMA/WH INC INC OLE BLOOD ECG 82332 JUDY KIM ROUTINE 7 [facility] W/LEAST 12 LDS TRCG ONLY W/O I&R THER 10204 JUDY RODGERS JR PROPH/DX 7 [facility] SINGLE/1S T SBST/DRUG COMPREHEN 51126 JUDY KIM SIVE 7 [place] [address] JUDY KIM TROPONIN 7 [facility] JAG RADIOLOGI 09002 [place] C EXAM 7 RADIOLOGY CHEST 2 VIEWS FRONTAL&L ATERAL BLOOD 30255 JUDY KIM COUNT 7 [facility] AUTO&AUTO DIFRNTL WBC INJECTION J1040 [facility] METHYLPRE ORTHOPAED DNISOLONE ICS PSC ACETATE 80 MG NJX 65074 [facility] DX/THER 7 SBST ORTHOPAED INTRLMNR ICS PSC LMBR/SAC W/IMG GDN PROF [facility] 39699 ALLERGY ZIEGLER ALLG 7 PARTNERS IMMNTX X OF [place] W/PRV CO ALLGIC XTRCS NJXS URNLS DIP 03644 BROCK MAGED 7 AND STICK/TAB MAGED, LET RGNT PSC NON-AUTO W/O MICRSCP PREPJ& 45566 ALLERGY ZIEGLER ALLERGEN 7 PARTNERS IMMUNOTHE OF [place] RAPY CO 1/ACID PLANT HELPER ANTIGEN PROF SVCS 41935 ALLERGY ZIEGLER ALLG 7 PARTNERS IMMNTX X OF [place] W/PRV CO ALLGIC XTRCS NJXS PROF [facility] 79665 ALLERGY ZIEGLER ALLG 7 PARTNERS IMMNTX X OF [place] W/PRV CO ALLGIC XTRCS NJXS RADIOLOGI 04469 [facility] MARTI C 7 EXAMINATI ORTHOPAED ON KNEE ICS PSC 1/2 VIEWS ECG 13097 INDIO JAIR MARCIAL ROUTINE 6 [facility] W/LEAST P 12 LDS I&R ONLY PRESSURIZ 97008 [facility] ED/NONPRE 6 [facility] SSURIZED INC INC INHALATIO N TREATMENT ECG 23420 [facility] ROUTINE 6 [facility] ECG INC INC W/LEAST 12 LDS TRCG ONLY W/O I&R SPMTRY 21795 ALLERGY ZIEGLER MAR W/VC 6 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 [place] Y CLARA CO W/WO MXML VOL VNTJ PROF SVCS 74779 ALLERGY ZIEGLER MAR ALLG 6 PARTNERS IMMNTX X OF [place] W/PRV CO ALLGIC XTRCS NJXS NITRIC 43540 ALLERGY ZIEGLER MAR OXIDE 6 PARTNERS OF [place] GAS CO DETERMINA TION PROF SVCS 47234 ALLERGY ZIEGLER MAR ALLG 6 PARTNERS IMMNTX X OF [place] W/PRV CO ALLGIC XTRCS NJXS PROF SVCS 40171 ALLERGY ZIEGLER MAR ALLG 6 PARTNERS IMMNTX X OF [place] W/PRV CO ALLGIC XTRCS NJXS PREPJ& 39743 ALLERGY ZIEGLER MAR ALLERGEN 6 PARTNERS IMMUNOTHE OF [place] RAPY CO 1/ACID PLANT HELPER ANTIGEN MRI 89564 [place] KL[facility] SPINAL 6 MEDICAL CANAL IMAGING LUMBAR ASS W/O CONTRAST MATERIAL 3D 80912 [place] KLARIS[facility] RENDERING 6 MEDICAL W/INTERP IMAGING & ASS POSTPROCE SS SUPERVISI ON PROF SVCS 01027 ALLERGY ZIEGLER MAR ALLG 6 PARTNERS IMMNTX X OF [place] W/PRV CO ALLGIC XTRCS NJXS PROF SVCS 15106 ALLERGY ZIEGLER MAR ALLG 6 PARTNERS IMMNTX X OF [place] W/PRV CO ALLGIC XTRCS NJXS RADEX 09775 [facility] MARTI SPINE 6 GRE LUMBOSACR ORTHOPAED AL 2/3 ICS PSC VIEWS RADIOLOGI 90055 [facility] MARTI C 6 GRE EXAMINATI ORTHOPAED ON KNEE ICS PSC 1/2 VIEWS PROF SVCS 96525 ALLERGY ZIEGLER MAR ALLG 6 PARTNERS IMMNTX X OF [place] W/PRV CO ALLGIC XTRCS NJXS OPHTH 89641 [facility] 6 [facility] COMPRHNSV ESTAB PT 1/> DETERMINA 99065 MIAN PATTERSON MANNY TION 6 [place] [address] ALLERGY ZIEGLER MAR ALLG 6 PARTNERS IMMNTX X OF [place] W/PRV CO ALLGIC XTRCS NJXS PROF SVCS 99590 ALLERGY ZIEGLER MAR ALLG 6 PARTNERS IMMNTX X OF [place] W/PRV CO ALLGIC XTRCS NJXS NITRIC 54241 ALLERGY ZIEGLER MAR OXIDE 6 PARTNERS OF [place] GAS CO DETERMINA TION SPMTRY 57095 ALLERGY ZIEGLER MAR W/VC 6 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 [place] Y CLARA CO W/WO MXML VOL VNTJ DEMO&/GERMAINE 07950 ALLERGY ALLERGY L OF PT 6 PARTNERS PARTNERS UTILIZ OF [place] OF [place] AERSL CO [place] GEN/NEB/I NHLR/[place] [address] ALLERGY ZIEGLER MAR ALLG 6 PARTNERS IMMNTX X OF [place] W/[place] [address] ALLERGY ZIEGLER MAR ALLG 6 PARTNERS IMMNTX X OF [place] W/PRV CO ALLGIC XTRCS NJXS PROF SVCS 98836 ALLERGY ZIEGLER MAR ALLG 6 PARTNERS IMMNTX X OF [place] W/PRV CO ALLGIC XTRCS NJXS RADIOLOGI 75362 [facility] MARTI C 6 GRE EXAMINATI ORTHOPAED ON KNEE ICS PSC 1/[place] [address] ALLERGY ZIEGLER MAR ALLG 6 PARTNERS IMMNTX X OF [place] W/PRV CO ALLGIC XTRCS NJXS PROF SVCS 58220 ALLERGY ZIEGLER MAR ALLG 6 PARTNERS IMMNTX X OF [place] W/PRV CO ALLGIC XTRCS NJXS PROF SVCS 43383 ALLERGY ZIEGLER MAR ALLG 6 PARTNERS IMMNTX X OF [place] W/PRV CO ALLGIC XTRCS NJXS SCREENING G0202 [facility] 6 [facility] MAMMOGRAP INC INC HY BENEDICT INCL CAD WHEN PERFORMD - 88270 INDIO INDIO CARLOS 6 [facility] DETECTION INC INC SCREENING MAMMOGRAP HY THERAPEUT 09389 INDIO BORJAS IC PX 1/> 6 [facility] AREAS INC INC EACH 15 MIN EXERCISES PROF [facility] 74505 ALLERGY ZIEGLER MAR ALLG 6 PARTNERS IMMNTX X OF [place] W/PRV CO ALLGIC XTRCS NJXS THERAPEUT 99327 INDIO INDIO IC PX 1/> 6 [facility] AREAS INC INC EACH 15 MIN EXERCISES THERAPEUT 53224 INDIO INDIO IC PX 1/> 6 [facility] AREAS INC INC EACH 15 MIN EXERCISES CYTP C/V 11833 BIO BIO AUTO THIN 6 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 PREPJ SCR IES IES MNL RESCR PHYS IADNA 07340 BIO BIO TRICHOMON 6 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 VAGINALIS IES IES AMPLIFIED PROBE TECH URINLS 76540 [facility] DIP 6 PHYSICIAN PHYSICIAN STICK/TAB S GROUP S GROUP LET REAGNT NON-AUTO MICRSCPY ANNUAL G0439 [facility] HAR[facility] WELLNESS 6 PHYSICIAN SONJA VST; S GROUP PERSONALI ZED PPS SUBSQT VST THERAPEUT 95553 [facility]JAS IC PX 1/> 6 [facility] AREAS INC INC EACH 15 MIN EXERCISES THERAPEUT 91801 INDIO BORJAS IC PX 1/> 6 [facility] AREAS INC INC EACH 15 MIN EXERCISES PROF [facility] 57530 ALLERGY ZIEGLER MAR ALLG 6 PARTNERS IMMNTX X OF [place] W/PRV CO ALLGIC XTRCS NJXS THERAPEUT 21783 INDIO BORJAS IC PX 1/> 6 [facility] AREAS INC INC EACH 15 MIN EXERCISES THERAPEUT 95447 INDIO BORJAS IC PX 1/> 6 [facility] AREAS INC INC EACH 15 MIN EXERCISES PREPJ& 08421 ALLERGY ZIEGLER MAR ALLERGEN 6 PARTNERS IMMUNOTHE OF [place] RAPY CO 1/ACID PLANT HELPER ANTIGEN THERAPEUT 43832 [facility] BORJAS IC PX 1/> 6 [facility] AREAS INC INC EACH 15 MIN EXERCISES PHYSICAL 97240 [facility] THERAPY 6 [facility] EVALUATIO INC INC N 87380 [facility] GUIDANCE 6 ANESTHESI NEEDLE A PLACEMENT ASSOCIAT IMG S&I ARTHRP 16904 CHASTITY KIDD KNEE 6 GRE CONDYLE&P ORTHOPAED LATEAU ICS PSC MEDIAL/LA T CMPRT INJECTION 23993 [facility] SCO 6 ANESTHESI ANESTHETI A C AGENT ASSOCIAT FEMORAL NERVE SINGLE WALKER E0135 [employer] FOLDING 6 [place] [address] ALLERGY ZIEGLER MAR ALLG 6 PARTNERS IMMNTX X OF [place] W/PRV CO ALLGIC XTRCS NJXS ANNUAL G0439 BROCK LYNNE WELLNESS 6 AND JANE VST; SONY LYNNEI [place] [address] [facility] THYROID 6 DIAGNOSTI DIAGNOSTI STIMULATI CS CS NG INCORPORA INCORPORA HORMONE T T TSH COLLECTIO 32163 [facility] N VENOUS 6 DIAGNOSTI DIAGNOSTI BLOOD CS CS VENIPUNCT INCORPORA INCORPORA URE T T LIPID 22557 [facility] PANEL 6 DIAGNOSTI DIAGNOSTI CS CS INCORPORA INCORPORA T T ECG 70475 JUDY KWANON ROUTINE 6 [facility] W/LEAST 12 LDS TRCG ONLY W/O I&R COLLECTIO 14734 [facility] VENOUS 6 [facility] VENIPUNCT URE URNLS DIP 65000 [facility] [facility] 6 [facility] HOSPITAL LET REAGENT AUTO MICROSCOP Y RADIOLOGI 84770 [place] NIKKI C EXAM 6 RADIOLOGY RHO CHEST 2 VIEWS FRONTAL&L ATERAL HEMOGLOBI 58397 ANIYAON ANIYAON N 6 [facility] ST[facility] A1C PROTHROMB 61329 JUDY KIM IN TIME 6 [facility] BASIC 35074 JUDY KIM METABOLIC [address] [place] [address] CALCIUM TOTAL THROMBOPL 08810 JUDY KIM ASTIN [address] [place] [address] PARTIAL PLASMA/WH OLE BLOOD CUL 45081 JUDY KIM PRSMPTV [address] [place] [address] ORGANISM SCRN W/COLONY ESTIMJ ECG 72769 GRAEME AMIN AMIN GRAEME ROUTINE 6 MD ECG CONSULTIN W/LEAST G SRV 12 LDS I&R ONLY BLOOD 81553 JUDY KIM COUNT [address] [place] [address] AUTO&AUTO DIFRNTL WBC PROF SVCS 82143 ALLERGY ZIEGLER MAR ALLG 6 PARTNERS IMMNTX X OF [place] W/PRV CO ALLGIC XTRCS NJXS PROF SVCS 02701 ALLERGY ZIEGLER MAR ALLG 6 PARTNERS IMMNTX X OF [place] W/PRV CO ALLGIC XTRCS NJXS PROF SVCS 15493 ALLERGY ZIEGLER MAR ALLG 6 PARTNERS IMMNTX X OF [place] W/PRV CO ALLGIC XTRCS NJXS PROF SVCS 03486 ALLERGY ZIEGLER MAR ALLG 6 PARTNERS IMMNTX X OF [place] W/PRV CO ALLGIC XTRCS NJXS PROF SVCS 72637 ALLERGY ZIEGLER MAR ALLG 6 PARTNERS IMMNTX X OF [place] W/PRV CO ALLGIC XTRCS NJXS RADIOLOGI 92574 CHASTITY LUIS C 6 SOPHIE EXAMINATI ORTHOPAED ON KNEE 3 ICS PSC VIEWS INCISION 21944 INDIO INDIO & REMOVAL 6 [facility] FOREIGN INC INC BODY SUBQ TISS COMPL PREPJ& 20012 ALLERGY ZIEGLER MAR ALLERGEN 6 PARTNERS IMMUNOTHE OF [place] RAPY CO 1/ACID PLANT HELPER ANTIGEN PROF SVCS 99651 ALLERGY ZIEGLER MAR ALLG 6 PARTNERS IMMNTX X OF [place] W/PRV CO ALLGIC XTRCS NJXS PROF SVCS 44444 ALLERGY ZIEGLER MAR ALLG 6 PARTNERS IMMNTX X OF [place] W/PRV CO ALLGIC XTRCS NJXS PROF SVCS 05399 ALLERGY ZIEGLER MAR ALLG 6 PARTNERS IMMNTX X OF [place] W/PRV CO ALLGIC XTRCS NJXS PROF SVCS 58584 ALLERGY ZIEGLER MAR ALLG 6 PARTNERS IMMNTX X OF [place] W/PRV CO ALLGIC XTRCS NJXS PROF SVCS 88498 ALLERGY ZIEGLER MAR ALLG 6 PARTNERS IMMNTX X OF [place] W/PRV CO ALLGIC XTRCS NJXS HYALURONA J7324 [facility] N/DERIV 6 [place] SOP[facility] ORTHOVISC ORTHOPAED IA INJ ICS PLC PER DOSE ARTHROCEN 54683 [facility] TESIS 6 [place] SOP[place] ASPIR&/IN ORTHOPAED J MAJOR ICS PLC JT/BURSA W/O US PROF SVCS 66512 ALLERGY ZIEGLER MAR ALLG 6 PARTNERS IMMNTX X OF [place] W/PRV CO ALLGIC XTRCS NJXS NITRIC 97109 ALLERGY ZIEGLER MAR OXIDE 6 PARTNERS OF [place] GAS CO DETERMINA TION PROF SVCS 67468 ALLERGY ZIEGLER MAR ALLG 6 PARTNERS IMMNTX X OF [place] W/PRV CO ALLGIC XTRCS NJXS SPMTRY 68979 ALLERGY ZIEGLER MAR W/VC 6 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 [place] Y CLARA CO W/WO MXML VOL VNTJ PROF SVCS 88868 ALLERGY ZIEGLER MAR ALLG 6 PARTNERS IMMNTX X OF [place] W/PRV CO ALLGIC XTRCS NJXS PROF SVCS 72056 ALLERGY ZIEGLER MAR ALLG 6 PARTNERS IMMNTX X OF [place] W/PRV CO ALLGIC XTRCS NJXS PROF SVCS 27380 ALLERGY ZIEGLER MAR ALLG 6 PARTNERS IMMNTX X OF [place] W/PRV CO ALLGIC XTRCS NJXS PROF SVCS 73995 ALLERGY ZIEGLER MAR ALLG 6 PARTNERS IMMNTX X OF [place] W/PRV CO ALLGIC XTRCS NJXS PROF SVCS 64096 ALLERGY ZIEGLER MAR ALLG 6 PARTNERS IMMNTX X OF [place] W/PRV CO ALLGIC XTRCS NJXS PROF SVCS 88788 ALLERGY ZIEGLER MAR ALLG 6 PARTNERS IMMNTX X OF [place] W/PRV CO ALLGIC XTRCS NJXS PREPJ& 66795 ALLERGY ZIEGLER MAR ALLERGEN 6 PARTNERS IMMUNOTHE OF [place] RAPY CO 1/ACID PLANT HELPER ANTIGEN PROF [facility] 14952 ALLERGY ZIEGLER MAR ALLG 6 PARTNERS IMMNTX X OF [place] W/PRV CO ALLGIC XTRCS NJXS PROF [facility] 26926 ALLERGY ZIEGLER MAR ALLG 6 PARTNERS IMMNTX X OF [place] W/PRV CO ALLGIC XTRCS NJXS PROF [facility] 04573 ALLERGY ZIEGLER MAR ALLG 6 PARTNERS IMMNTX X OF [place] W/PRV CO ALLGIC XTRCS NJXS PROF [facility] 24695 ALLERGY ZIEGLER MAR ALLG 6 PARTNERS IMMNTX X OF [place] W/PRV CO ALLGIC XTRCS NJXS PROF [facility] 00827 ALLERGY ZIEGLER MAR ALLG 5 PARTNERS IMMNTX X OF [place] W/PRV CO ALLGIC [facility] E-STIM [id number] [facility] 1/> AREAS 5 [facility] OTH THAN INC INC WND CARE PART TX PLAN THERAPEUT 93975 [facility] IC PX 1/> 5 [facility] AREAS INC INC EACH 15 MIN EXERCISES APPLICATI 45367 [facility] ON 5 [facility] MODALITY INC INC 1/> AREAS HOT/COLD PACKS APPL 72714 [facility] MODALITY 5 [facility] 1/> AREAS INC INC VASOPNEUM ATIC DEVICES THERAPEUT 44473 [facility] IC PX 1/> 5 [facility] AREAS INC INC EACH 15 MIN EXERCISES PHYSICAL 76316 [facility] THERAPY 5 [facility] EVALUATIO INC INC N E-STIM [id number] [facility] 1/> AREAS 5 [facility] OTH THAN INC INC WND CARE PART TX PLAN DEMO&/GERMAINE 93851 ALLERGY ZIEGLER MAR L OF PT 5 PARTNERS UTILIZ OF [place] AERSL CO GEN/NEB/I NHLR/IP NITRIC 87424 ALLERGY ZIEGLER MAR OXIDE 5 PARTNERS OF [place] GAS CO DETERMINA TION SPMTRY 64265 ALLERGY ZIEGLER MAR W/VC 5 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 [place] Y CLARA CO W/WO MXML VOL VNTJ PROF [facility] 79042 ALLERGY ZIEGLER MAR ALLG 5 PARTNERS IMMNTX X OF [place] W/PRV CO ALLGIC [facility] 92535 ALLERGY ZIEGLER MAR ALLG 5 PARTNERS IMMNTX X OF [place] W/PRV CO ALLGIC [facility]CS [facility] PROF [facility] 86757 ALLERGY ZIEGLER MAR ALLG 5 PARTNERS IMMNTX X OF [place] W/PRV CO ALLGIC [facility]CS [facility] PROF [facility] 30372 ALLERGY ZIEGLER MAR ALLG 5 PARTNERS IMMNTX X OF [place] W/PRV CO ALLGIC XTRCS [facility] PROF [facility] 34649 ALLERGY ZIEGLER MAR ALLG 5 PARTNERS IMMNTX X OF [place] W/[place] [address] ALLERGY ZIEGLER MAR ALLG 5 PARTNERS IMMNTX X OF [place] W/PRV CO ALLGIC [facility] ANES 22783 [facility] BYRNE OPEN/SURG 5 ANESTHESI ROSALES A GROUP ARTHROSCO PS PIC PROC KNEE JOINT NOS ARTHRS 40957 [facility] KNE SURG 5 N N W/MENISCE COMMUNTIY COMMUNTIY CTOMY HOSPITA HOSPITA MED/LAT W/SHVG PROF [facility] 64839 ALLERGY ZIEGELR MAR ALLG 5 PARTNERS IMMNTX X OF [place] W/PRV CO ALLGIC [facility]CS [facility] PROF [facility] 94657 ALLERGY ZIEGLER MAR ALLG 5 PARTNERS IMMNTX X OF [place] W/PRV CO ALLGIC [facility] BLOOD 78783 [facility] COUNT 5 N N COMPLETE COMMUNTIY COMMUNTIY AUTOMATED HOSPITA HOSPITA BASIC 74344 [facility] METABOLIC 5 N N PANEL COMMUNTIY COMMUNTIY CALCIUM HOSPITA HOSPITA TOTAL ECG 82603 [facility] ROUTINE 5 N N ECG COMMUNTIY COMMUNTIY W/LEAST HOSPITA HOSPITA 12 LDS TRCG ONLY W/O I&R COLLECTIO 88115 [facility] N VENOUS 5 N N BLOOD COMMUNTIY COMMUNTIY VENIPUNCT HOSPITA HOSPITA URE RADIOLOGI 58047 [facility] [place] NIKK[place] C EXAM 5 RADIOLOGY RHO CHEST 2 VIEWS FRONTAL&L ATERAL PROF [facility] 41589 ALLERGY ZIEGLER MAR ALLG 5 PARTNERS IMMNTX X OF [place] W/PRV CO ALLGIC [facility]CS [facility] PROF [facility] 14416 ALLERGY ZIEGLER MAR ALLG 5 PARTNERS IMMNTX X OF [place] W/PRV CO ALLGIC X[facility]CS [facility] PROF [facility] 76208 ALLERGY ZIEGLER MAR ALLG 5 PARTNERS IMMNTX X OF [place] W/PRV CO ALLGIC XTRCS [facility] PROF [facility] 06022 ALLERGY ZIEGLER MAR ALLG 5 PARTNERS IMMNTX X OF [place] W/PRV CO ALLGIC XTRCS [facility] PROF [facility] 83965 ALLERGY ZIEGLER MAR ALLG 5 PARTNERS IMMNTX X OF [place] W/PRV CO ALLGIC XTRCS [facility] MRI ANY 65277 CENTRAL LUIS JT LOWER 5 [place] SOPHIE EXTREM ORTHOPAED W/O ICS PLC CONTRAST MATRL PROF [facility] 78642 ALLERGY ZIEGLER MAR ALLG 5 PARTNERS IMMNTX X OF [place] W/PRV CO ALLGIC XTRCS [facility] PROF [facility] 45835 ALLERGY ZIEGLER MAR ALLG 5 PARTNERS IMMNTX X OF [place] W/PRV CO ALLGIC XTRCS [facility] PROF [facility] 73884 ALLERGY ZIEGLER MAR ALLG 5 PARTNERS IMMNTX X OF [place] W/PRV CO ALLGIC XTRCS [facility] PROF [facility] 99862 ALLERGY ZIEGLER MAR ALLG 5 PARTNERS IMMNTX X OF [place] W/PRV CO ALLGIC [facility] INJECTION J0696 BROCK MAGED 5 AND JANE CEFTRIAXO REYNALDO LYNNE SODIUM PSC PER 250 MG INJECTION J1100 BROCK MAGED 5 AND JANE DEXAMETHO TINY LYNNE PSC SODIUM PHOSPHATE 1 MG PROF [facility] 34591 ALLERGY ZIEGLER MAR ALLG 5 PARTNERS IMMNTX X OF [place] W/PRV CO ALLGIC XTRCS [facility] PROF [facility] 19788 ALLERGY ZIEGLER MAR ALLG 5 PARTNERS IMMNTX X OF [place] W/PRV CO ALLGIC XTRCS [facility] PROF [facility] 47506 ALLERGY ZIEGLER MAR ALLG 5 PARTNERS IMMNTX X OF [place] W/PRV CO ALLGIC XTRCS [facility] PROF [facility] 95630 ALLERGY ZIEGLER MAR ALLG 5 PARTNERS IMMNTX X OF [place] W/PRV CO ALLGIC XTRCS [facility] PROF [facility] 55058 ALLERGY ZIEGLER MAR ALLG 5 PARTNERS IMMNTX X OF [place] W/PRV CO ALLGIC XTRCS [facility] PROF [facility] 05948 ALLERGY ZIEGLER MAR ALLG 5 PARTNERS IMMNTX X OF [place] W/PRV CO ALLGIC XTRCS NJXS PROF [facility] 03407 ALLERGY ZIEGLER MAR ALLG 5 PARTNERS IMMNTX X OF [place] W/PRV CO ALLGIC XTRCS NJXS PROF [facility] 99885 ALLERGY ZIEGLER MAR ALLG 5 PARTNERS IMMNTX X OF [place] W/PRV CO ALLGIC XTRCS NJXS PREPJ& 65844 ALLERGY ZIEGLER MAR ALLERGEN 5 PARTNERS IMMUNOTHE OF [place] RAPY CO 1/ACID PLANT HELPER ANTIGEN PERCUTANE 50235 ALLERGY ZIEGLER MAR OUS TESTS 5 PARTNERS OF [place] W/ALLERGE CO ABNER EXTRACTS INTRACUTA 55930 ALLERGY ALLERGY NEOUS 5 PARTNERS PARTNERS TESTS OF [place] OF [place] W/ALLERGE CO CO ABNER EXTRACTS PERCUTANE 13727 ALLERGY ZIEGLER MAR OUS TESTS 5 PARTNERS OF [place] W/ALLERGE CO ABNER EXTRACTS SPMTRY 16095 ALLERGY ZIEGLER MAR W/VC 5 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 [place] Y CLARA CO W/WO MXML VOL VNTJ NITRIC 80400 ALLERGY ZIEGLER MAR OXIDE 5 PARTNERS OF [place] GAS CO DETERMINA TION HYALURONA J7324 [facility] N/DERIV 5 [place] SOPHIE ORTHOVISC ORTHOPAED [place] INJ ICS PLC PER DOSE ARTHROCEN 40607 [facility] TESIS 5 [place] ASPIR&/IN ORTHOPAED J MAJOR ICS PLC JT/BURSA W/O US ARTHROCEN 30098 [facility] TESIS 5 [place] SOP[place]IE ASPIR&/IN ORTHOPAED J MAJOR ICS PLC JT/BURSA W/O US HYALURONA J7324 CEN[facility]AL [facility] N/DERIV 5 [place] SOPHIE ORTHOVISC ORTHOPAED IA INJ ICS PLC PER DOSE HYALURONA J7324 CEN[facility]AL [facility] N/DERIV 5 [place] SOP[place]IE ORTHOVISC ORTHOPAED IA INJ ICS PLC PER DOSE ARTHROCEN 34341 [facility]AL [place] TESIS 5 [place] SOP[place]IE ASPIR&/IN ORTHOPAED J MAJOR ICS PLC JT/BURSA W/O US SCREENING G0202 [facility] 5 [facility] MAMMOGRAP INC INC HY BENEDICT INCL CAD WHEN PERFORMD COMPUTER- 22023 INDIO BORJAS AIDED 5 [facility] DETECTION INC INC SCREENING MAMMOGRAP HY IADNA 19714 BIO BIO 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 IES IES AMPLIFIED PROBE TECH ANNUAL G0439 CHARLES PERERA WELLNESS 5 DILMA PEREZ SONJA VST; PERSONALI ZED PPS SUBSQT VST URINLS 15972 CHARLES SOTO R DIP 5 DILMA PERERA MD STICK/[place] [address] INDIO BORJAS INFUSION 5 [facility] THERAPY/P INC INC ROPHYLAXI S /DX 1ST TO 1 HR CYTP 16974 CHIPPS DUONG SLCTV 5 CLAIRE & ELIU CELL DUBILIER ENHANCEME NT INTERPJ XCPT C/V CELL 74920 [facility] COUNT 5 N N MISC BODY COMMUNTIY COMMUNTIY FLUIDS HOSPITA HOSPITA W/DIFFERE NTIAL COUNT PROTEIN 85841 [facility] TOTAL 5 N N XCPT COMMUNTIY COMMUNTIY REFRACTOM HOSPITA HOSPITA ETRY OTH SRC SMR PRIM 48043 [facility] SRC 5 N N GRAM/GIEM COMMUNTIY COMMUNTIY SA STAIN HOSPITA HOSPITA BCT FUNGI/JOSE L GLUCOSE 99258 [facility] BODY 5 N N FLUID COMMUNTIY COMMUNTIY OTHER HOSPITA HOSPITA THAN BLOOD SPINAL 97059 [facility] [place] EL[facility] PUNCTURE 5 RADIOLOGY LUMBAR DIAGNOSTI C CUL BACT 27335 [facility] XCPT 5 N N URINE COMMUNTIY COMMUNTIY BLOOD/STO HOSPITA HOSPITA OL AEROBIC ISOL FLUOR 19700 [facility] [place] NEEDLE/CA 5 RADIOLOGY TH SPINE/PAR ASPINAL DX/THER ADDON RADIOLOGI 13121 [facility] C EXAM 5 N N BOTH COMMUNTIY COMMUNTIY KNEES HOSPITA HOSPITA STANDING ANTEROPOS T RADIOLOGI 15343 [facility] C 5 N N EXAMINATI COMMUNTIY COMMUNTIY ON KNEE HOSPITA HOSPITA 1/2 VIEWS RADIOLOGI 78663 [facility] [place] C 5 RADIOLOGY EXAMINATI ON KNEE 3 VIEWS APPLICATI 46909 [facility] ON 5 MEM [facility] MODALITY INC INC 1/> AREAS HOT/COLD PACKS MANUAL 40832 [facility] THERAPY 5 MEM [facility] TQS 1/> INC INC REGIONS EACH 15 MINUTES E-STIM G0283 [facility]JAS 1/> AREAS 5 MEM [facility] MEM [facility]OS[facility] OTH THAN INC INC WND CARE PART TX PLAN E-STIM G0283 [facility]IO BORJAS 1/> AREAS 5 MEM H[facility] MEM HOSP OTH THAN INC INC WND CARE PART TX PLAN APPLICATI 81748 [facility] B[facility]AS ON 5 [facility] MODALITY INC INC 1/> AREAS HOT/COLD PACKS APPLICATI 42928 [facility] B[facility]JAS ON 5 [facility] MODALITY INC INC 1/> AREAS HOT/COLD PACKS MANUAL 79945 [facility]AS THERAPY 5 MEM HOS[facility] MEM HOSP TQS 1/> INC INC REGIONS EACH 15 MINUTES E-STIM G0283 INDIO BORJAS 1/> AREAS 5 MEM HOS[facility] MEM HOSP OTH THAN INC INC WND CARE PART TX PLAN E-STIM G0283 INDIO BORJAS 1/> AREAS 5 MEM H[facility] MEM HOSP OTH THAN INC INC WND CARE PART TX PLAN MANUAL 20609 [facility]AS THERAPY 5 MEM H[facility] MEM [facility]OS[facility] TQS 1/> INC INC REGIONS EACH 15 MINUTES APPLICATI 85295 [facility] BORJAS ON 5 MEM [facility] MEM [facility]OS[facility] MODALITY INC INC 1/> AREAS HOT/COLD PACKS MANUAL 96686 [facility]JAS THERAPY 5 MEM [facility]OS[facility] TQS 1/> INC INC REGIONS EACH 15 MINUTES APPLICATI 69562 [facility]JAS ON 5 MEM [facility] MEM [facility]OSP MODALITY INC INC 1/> AREAS HOT/COLD PACKS E-STIM G0283 INDIO BORJAS 1/> AREAS 5 MEM HOS[facility] MEM HOSP OTH THAN INC INC WND CARE PART TX PLAN E-STIM G0283 INDIO HUNTERON 1/> AREAS 5 MEM HOS[facility] MEM HOSP OTH THAN INC INC WND CARE PART TX PLAN THERAPEUT 62754 INDIO BORJAS IC PX 1/> 5 MEM [facility]OS[facility] AREAS INC INC EACH 15 MIN EXERCISES PHYSICAL 11292 [facility] THERAPY 5 MEM [facility]OS[facility] EVALUATIO INC INC N MANUAL 64182 [facility]AS THERAPY 5 MEM [facility]OS[facility] TQS 1/> INC INC REGIONS EACH 15 MINUTES APPLICATI 71982 [facility] B[facility]JAS ON 5 MEM [facility]OS[facility] MODALITY INC INC 1/> AREAS HOT/COLD PACKS MRI BRAIN 16147 [facility] BRAIN 5 N N STEM W/O COMMUNTIY COMMUNTIY CONTRAST HOSPITA HOSPITA MATERIAL KNEE L1845 [facility]TH[facility]IS 4 TECHNOLOG TECHNOLOG DOUBLE IES INC IES INC UPRIGHT THIGH & CALF PREFAB RADIOLOGI 90592 [facility] 4 N N EXAMINATI COMMUNITY COMMUNITY ON PELVIS HOSPITA HOSPITA 1/2 VIEWS COLLECTIO 46753 [facility] N VENOUS 4 N N BLOOD [facility] COMMUNITY VENIPUNCT HOSPITA HOSPITA URE COMPREHEN 52772 [facility] SIVE 4 N N METABOLIC COMMUNITY COMMUNITY PANEL HOSPITA HOSPITA RADIOLOGI 19690 [facility] EXAM 4 N N BOTH COMMUNITY COMMUNITY KNEES HOSPITA HOSPITA STANDING ANTEROPOS T RADIOLOGI 67545 [facility] [place] NIKK[place] C 4 RADIOLOGY RHO EXAMINATI ON KNEE [address] V[address] [facility] 4 N N EXAMINATI [facility] [place] ON KNEE HOSPITA HOSPITA 1/2 VIEWS BLOOD 72703 [facility] COUNT 4 N N COMPLETE [facility] [place] AUTOMATED HOSPITA HOSPITA IIV3 VACC 26271 [facility] PRESERVAT #591 #591 JAG FREE 0.5 ML DOSAGE IM USE ADMINISTR G0008 [facility] [place] [address] PHARMACY PHARMACY INFLUENZA #591 #591 VIRUS VACCINE INJECTION J1100 MAGED LYNNE 4 JANE LARA DEXAMETHO SONE SODIUM PHOSPHATE 1 [place] [address] [facility] BORJAS INFUSION 4 MEM [facility] MEM HOS[facility] THERAPY/P INC INC ROPHYLAXI S /DX 1ST TO 1 HR THERAPEUT 94528 [facility] IC 4 MEM H[facility]P [facility] INJECTION INC [place] [address] INDIO BORJAS INFUSION 4 [facility] THERAPY INC INC PROPHYLAX IS/DX EA HOUR INJECTION J2405 [facility]ORJAS 4 MEM [facility] ONDANSETR INC INC ON HCL PER 1 MG ARTHRS 54358 [facility]JAS KNEE 4 [facility] ABRASION INC INC ARTHRP/ML T DRLG/MICR OFX ARTHRS 75962 [facility] KNEE 4 [facility] W/MENISCE INC INC CTOMY MED&LAT W/SHAVING BASIC 58120 INDIO BORJAS METABOLIC 4 [facility] PANEL INC INC CALCIUM TOTAL ECG 83093 IND[facility] BORJAS ROUTINE 4 [facility] ECG INC INC W/LEAST 12 LDS TRCG ONLY W/O I&R COLLECTIO 76678 [facility] N VENOUS 4 [facility] BLOOD INC INC VENIPUNCT URE BLOOD 43052 [facility] COUNT 4 [facility] COMPLETE INC INC AUTO&AUTO DIFRNTL WBC ECG 72672 INDIO ADAM JR ROUTINE 4 [facility] W/LEAST P 12 LDS I&R ONLY URNLS DIP 47306 MAGED LYNNE 4 JANE JANE STICK/TAB LET RGNT NON-AUTO W/O MICRSCP RADEX 91624 SAMMI CYR SPINE 4 MEDICAL [place] LUMBOSACR IMAGING AL ASS MINIMUM 4 VIEWS ANNUAL G0438 CHARLES PERERA WELLNESS 4 DILMA CASILLAS VISIT; PERSONALI Z PPS INIT VISIT URINLS 37590 CHARLES SOTO R DIP 4 DILMA PERERA MD STICK/TAB LET REAGNT NON-AUTO MICRSCPY RADIOLOGI 34467 SAMMI BAHENAUTCHER C 4 MEDICAL [place] EXAMINATI IMAGING ON KNEE 3 ASS VIEWS IADNA 00419 BIO BIO TRICHOMON 4 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 VAGINALIS IES IES AMPLIFIED PROBE TECH CERV/VAGI G0101 CHARLES PERERA NAL 4 DILMA CASILLAS CANCER SCR; PELV&CLIN BREAST EXAM THERAPEUT 17845 [facility] IC 4 [facility] PROPHYLAC INC INC TIC/DX INJECTION SUBQ/IM SCR G0145 BIO BIO CYTOPATH 4 REFERNCE REFERNCE CERV/VAG LABORATOR LABORATOR SCR IES IES AUTO&MNL RSCR PHYS SCREEN Q0091 CHARLES PERERA PAP 4 DILMA CASILLAS SMEAR; OBTAIN PREP &C ONVEY TO LAB COMPREHEN 11252 LAB [facility] SIVE 4 SUZI SUZI METABOLIC [place] [address] [facility] THYROID 4 SUZI SUZI STIMULATI [employer] HOLDINGS NG HORMONE TSH BLOOD 11260 [facility] COUNT 4 SUZI SUZI COMPLETE [employer] AUTOMATED ARTHROCEN 98673 [facility] KIRSTYTEKimberly TESIS 4 PHYSICIAN JAM ASPIR&/IN S GROUP J MAJOR JT/BURSA W/O US COLLECTIO 43021 [facility] N VENOUS 4 MEM HOS[facility]OS[facility] BLOOD INC INC VENIPUNCT URE LIPID 73092 [facility] PANEL 4 MEM HOS[facility]OS[facility] INC INC COMPREHEN 42210 [facility] SIVE 4 MEM HOS[facility] HOS[facility] METABOLIC INC INC PANEL URNLS DIP 40907 [facility]JAS 4 [facility] STICK/TAB INC INC LET REAGENT AUTO MICROSCOP Y BLOOD 89573 [facility] COUNT 4 MEM [facility]OS[facility] COMPLETE INC INC AUTO&[place] [address] [facility] THYROID 4 MEM [facility]OS[facility] STIMULATI INC INC NG HORMONE TSH MRI ANY 86353 SAMMI CYR JT LOWER 4 MEDICAL [place] EXTREM IMAGING W/O ASS CONTRAST MATRL THERAPEUT 60316 [facility] IC 4 MEM [facility]OS[facility]OS[facility] PROPHYLAC INC INC TIC/DX INJECTION SUBQ/IM DIAGNOSTI G0204 [facility] C 3 MEM HOS[facility]OS[facility] MAMMOGRAP INC INC HY INCL CAD WHEN PERF; BILAT ARTHROCEN [facility] KAROLINA TESIS 3 PHYSICIAN ALFONSO ASPIR&/IN S GROUP J MAJOR JT/BURSA W/O US HYALURONA J7325 [facility] PETTEY N/DERIV 3 PHYSICIAN ALFONSO SYNVISC/S S GROUP YNVISC-ON E IA INJ 1 MG APPL 61438 MIAN ORTIZ MODALITY 3 MATT 1/> AREAS CHIROPRAC TRACTION TIC CENTE MECHANICA L CHIROPRAC 14435 MIAN ORTIZ TIC 3 MATT MANIPULAT CHIROPRAC JAG TX TIC CENTE SPINAL 3-[place] [address] MIAN ORTIZ 1/> AREAS 3 MATT EACH 15 CHIROPRAC MIN TIC CENTE NEUROMUSC REEDUCA THERAPEUT 85359 MIAN ORTIZ IC PX 1/> 3 MATT AREAS CHIROPRAC EACH 15 TIC CENTE MIN EXERCISES APPLICATI 92087 MIAN ORTIZ ON 3 MATT MODALITY CHIROPRAC 1/> AREAS TIC CENTE HOT/COLD PACKS APPLICATI 47935 MIAN ORTIZ ON 3 MATT MODALITY CHIROPRAC 1/> AREAS TIC CENTE HOT/COLD PACKS THERAPEUT 19672 MIAN ORTIZ IC PX 1/> 3 MATT AREAS CHIROPRAC EACH 15 [place] [address] MIAN ORTIZ 1/> AREAS 3 MATT EACH 15 CHIROPRAC MIN TIC CENTE NEUROMUSC REEDUCA CHIROPRAC 59958 MIAN ORTIZ TIC 3 MATT MANIPULAT CHIROPRAC JAG TX TIC CENTE SPINAL 3-4 REGIONS APPL 74231 MIAN ORTIZ MODALITY 3 MATT 1/> AREAS CHIROPRAC TRACTION TIC CENTE MECHANICA L APPL 79811 MIAN ORTIZ MODALITY 3 MATT 1/> AREAS CHIROPRAC TRACTION TIC CENTE MECHANICA L CHIROPRAC 68256 MIAN ORTIZ TIC 3 MATT MANIPULAT CHIROPRAC JAG TX TIC CENTE SPINAL 3-4 REGIONS THERAPEUT 15462 MIAN ORTIZ IC PX 1/> 3 MATT AREAS CHIROPRAC EACH 15 TIC CENTE MIN EXERCISES APPLICATI 93058 MIAN DIANA ON 3 MATT MODALITY CHIROPRAC 1/> AREAS TIC CENTE HOT/COLD PACKS CHEMODERV 35877 [facility] VINEET ÁNGEL ATE 3 N FACIAL/TR NEUROLOGY IGEM/CERV MUSC MIGRAINE BOTULINUM J0585 [facility] VINEET ÁNGEL TOXIN 3 N TYPE A NEUROLOGY PER UNIT INJECTION J0171 [facility] 3 N N ADRENALIN [facility] [place] HOSPITA HOSPITA EPINEPHRI NE 0.1 MG INJECTION J2370 [facility] 3 N N PHENYLEPH [facility] [place] RINE HCL HOSPITA HOSPITA UP TO 1 ML INJECTION J3010 [facility] FENTANYL 3 N N CITRATE [facility] [place] 0.1 MG HOSPITA HOSPITA INJECTION J2405 [facility] 3 N N ONDANSETR [facility] [place] ON HCL HOSPITA HOSPITA PER 1 MG INJECTION J0690 [facility] 3 N N CEFAZOLIN [facility] [place] SODIUM HOSPITA HOSPITA 500 MG DECALCIFI 66872 CHIPPS BENSEMA CATION 3 CLAIRE & MAR PROCEDURE [place] [address] CHIPPS BENSEMA SURG 3 CLAIRE & MAR PATHOLOGY [facility]OSS&MIKAL ROSCOPIC EXAM NASAL/SIN 83475 [facility] US 3 N N ENDOSCOPY [facility] [place] HOSPITA HOSPITA W/MAXILLA RY ANTROSTOM Y STRTCTC 87337 [facility] CPTR 3 N N ASSTD PX [facility] [place] EXTRADURA HOSPITA HOSPITA L CRANIAL SEPTOPLAS 41085 [facility] TY/SUBMUC 3 N N OUS [facility] [place] RESECJ HOSPITA HOSPITA W/WO CARTILAGE GRF NASAL/SIN 96999 [facility] US 3 N N ENDOSCOPY [facility] [place] HOSPITA HOSPITA W/ETHMOID ECTOMY TOTAL NASAL/SIN 24347 [facility] US NDSC 3 N N W/FRONTAL [facility] [place] SINUS HOSPITA HOSPITA EXPLORATI ON NASAL/SIN 14493 [facility] US 3 N N ENDOSCOPY [facility] [place] HOSPITA HOSPITA W/SPHENOI DOTOMY ANESTHESI 31748 SAMIM Damian NOSE & 3 ANESTHESI ELIU ACCESSORY A GROUP SINUSES PS NOS INJ Q9968 [facility] NONRADIAT 3 N N JAG [facility] [place] NONCONTRA HOSPITA HOSPITA ST VIZ ADJUNCT 1 MG SUBMUCOUS 54777 EAR, NOSE SHASHY RESCJ 3 AND HARESH INFERIOR THROAT TURBINATE SPECIAL PRTL/COMP L INJECTION J1100 [facility] 3 N N DEXAMETHO [facility] [place] SONE HOSPITA HOSPITA SODIUM PHOSPHATE 1 MG INJECTION J2001 [facility] 3 N N LIDOCAINE [facility] [place] HCL HOSPITA HOSPITA INTRAVENO US INFUS 10 MG BLOOD 45755 [facility] COUNT 3 N N HEMOGLOBI [facility] [place] N HOSPITA HOSPITA COLLECTIO 34931 [facility] N VENOUS 3 N N BLOOD [facility] [place] VENIPUNCT HOSPITA HOSPITA URE BLOOD 49485 [facility] COUNT 3 N N HEMATOCRI [facility] [place] T HOSPITA HOSPITA INTRACUTA 73996 EAR, NOSE SHASHY NEOUS 3 AND HARESH TESTS THROAT W/ALLERGE SPECIAL ABNER EXTRACTS PERCUTANE 55111 EAR, NOSE SHASHY OUS TESTS 3 AND HARESH THROAT W/[place] [address] [facility] MAXILLOFA 3 N N CIAL W/O COMMUNITY COMMUNITY CONTRAST HOSPITA HOSPITA MATERIAL NASOPHARY 47447 EAR, NOSE SHASHY NGOSCOPY 3 AND HARESH W/ENDOSCO THROAT PE SPX SPECIAL APPL 01804 MIAN DIANA MODALITY 3 MATT 1/> AREAS CHIROPRAC TRACTION TIC CENTE MECHANICA L CHIROPRAC 95761 MIAN DIANA TIC 3 MATT MANIPULAT CHIROPRAC JAG TX TIC CENTE SPINAL 3-[place] [address] MIAN DIANA 1/> AREAS 3 MATT EACH 15 CHIROPRAC [place] [address] MIAN DIANA 1/> AREAS 3 MATT EACH 15 CHIROPRAC MIN TIC CENTE NEUROMUSC REEDUCA OPHTHALMO 83546 JACKELYN HAYDEN SCPY 3 JAM JAM EXTENDED RETINAL DRAWING I&R 1ST DETERMINA 55192 HAYDEN JACKELYN ARRIETAON 3 JAM JAM REFRACTIV E STATE APPL 44490 MIAN DIANA MODALITY 3 MATT 1/> AREAS CHIROPRAC TRACTION TIC CENTE MECHANICA L CHIROPRAC 27430 MIAN DIANA TIC 3 MATT MANIPULAT CHIROPRAC JAG TX TIC CENTE SPINAL 3-[place] [address] CYNERIC DIANA 1/> AREAS 3 MATT EACH 15 CHIROPR[place] [address] CYNERIC DIANA 1/> AREAS 3 MATT EACH 15 CHIROPRAC [place] [address] CYN[place] DIANA 1/> AREAS 3 MATT EACH 15 CHIROPRAC [place] [address] CYN[place]NA DIANA 1/> AREAS 3 MATT EACH 15 CHIROPRAC MINUTES TIC CENTE MASSAGE CHIROPRAC 28294 MIAN DIANA TIC 3 MATT MANIPULAT CHIROPRAC JAG TX TIC CENTE SPINAL 3-4 REGIONS APPL 78849 [place] DIANA MODALITY 3 MATT 1/> AREAS CHIROPRAC TRACTION TIC CENTE MECHANICA L THERAPEUT 51808 INDIO BORJAS IC 2 MEM H[facility] PROPHYLAC INC INC TIC/DX INJECTION SUBQ/IM SCREENING G0202 [place] KL[place]ISSA 2 MEDICAL [place] MAMMOGRAP IMAGING HY BENEDICT ASS INCL CAD WHEN PERFORMD COMPUTER- 58153 [place] AIDED 2 MEDICAL [place] DETECTION IMAGING ASS SCREENING MAMMOGRAP HY CHIROPRAC 14176 MIAN CALVERT DOMINIQUE TIC 2 MANIPULAT CHIROPRAC JAG TX TIC CENTE SPINAL 3-4 REGIONS CHIROPRAC 52027 MIAN CALVERT DOMINIQUE TIC 2 MANIPULAT CHIROPRAC JAG TX TIC CENTE SPINAL 3-4 REGIONS CYTP C/V 02697 BIO BIO AUTO THIN 2 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 PREPJ SCR IES IES MNL RESCR PHYS IADNA 18626 BIO BIO CHLAMYDIA 2 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 TRACHOMAT IES IES IS AMPLIFIED PROBE TQ BLOOD 67270 CHARLES PERERA OCCULT 2 DILMA PEREZ SONJA PEROXIDAS E ACTV QUAL FECES 1 DETER IADNA 31214 BIO BIO NEISSERIA 2 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 GONORRHOE IES IES AE AMPLIFIED PROBE TQ IADNA NOS 39334 BIO BIO 2 REFERNCE REFERNCE AMPLIFIED LABORATOR LABORATOR PROBE TQ IES IES EACH ORGANISM ANNUAL G0438 CHARLES SOTO R WELLNESS 2 DILMA PERERA MD VISIT; PERSONALI Z PPS INIT VISIT URINLS 87727 CHARLES PERERA DIP 2 DILMA PEREZ SONJA STICK/TAB LET REAGNT NON-AUTO MICRSCPY CHIROPRAC 13005 MIAN ORTIZ TIC 2 MATT MANIPULAT CHIROPRAC JAG TX TIC CENTE SPINAL 3-4 REGIONS CHIROPRAC 81199 MIAN CALVERT DOMINIQUE TIC 2 MANIPULAT CHIROPRAC JAG TX TIC CENTE SPINAL 3-4 REGIONS CHIROPRAC 47314 MIAN CALVERT DOMINIQUE TIC 2 MANIPULAT CHIROPRAC JAG TX TIC CENTE SPINAL 3-4 REGIONS CHIROPRAC 79143 MIAN CALVERT DOMINIQUE TIC 2 MANIPULAT CHIROPRAC JAG TX TIC CENTE SPINAL 3-4 REGIONS CHIROPRAC 64399 MIAN CALVERT DOMINIQUE TIC 2 MANIPULAT CHIROPRAC JAG TX TIC CENTE SPINAL 3-4 REGIONS RADEX 86324 [place] KLARIS[place] SPINE 2 MEDICAL [place] LUMBOSACR IMAGING AL ASS MINIMUM 4 VIEWS INFLUENZA Q2036 [facility]OCK BROCK VACC 2 JAM JAM SPLIT VIRUS 3 YRS & > IM FLULAVAL INJ J0702 BROCK GUTIÉRREZ BETAMETHA 2 JAM JAM SONE ACETATE & PHOSPHATE 3 MG URNLS DIP 06862 BROCK BROCK 2 JAM JAM STICK/TAB LET RGNT NON-AUTO W/O MICRSCP INJECTION J1100 BROCK BROCK 2 JAM JAM DEXAMETHO SONE SODI[place] [address] [place] [address] [facility] ABDOMEN & 2 [facility] W/O CONTRAST MATERIAL URNLS DIP [address] STICK/TAB [facility] LET REAGENT AUTO MICROSCOP Y RADEX 66538 [place] FOOT 2 MEDICAL [place] COMPLETE IMAGING MINIMUM 3 ASS VIEWS TDAP 45465 [facility] UHNTERON VACCINE 7 2 MEM HOSP MEM HOSP YRS/> IM INC INC RADEX TOE 13744 [place] KL[place] MINIMUM 2 MEDICAL [place] 2 VIEWS IMAGING ASS RADIOLOGI 80866 [place] C 2 MEDICAL [place] EXAMINATI IMAGING ON KNEE [address] [place] [address] [facility] ABDOMEN & [address] [place] [address] PELVIS W/O CONTRAST MATERIAL CUL BACT 72968 [facility] XCPT [address] [place] [address] URINE BLOOD/STO OL AEROBIC ISOL HEMOGLOBI [address] GLYCOSYLA STEFANO A1C PREALBUMI [address] [place] [address] SUBCUTANE OUS TISSUE 20 SQ CM/< COLLECTIO 69990 [facility] VENOUS [address] [place] [address] BLOOD VENIPUNCT URE COMPREHEN [phone] METABOLIC PANEL CUL BACT [phone] ADDL METHS DEFINITIV E EA ISOL SMR PRIM [id number] GRAM/GIEM SA STAIN BCT FUNGI/JOSE L INJECTION J1100 MAGED LYNNE 1 JANE JANE DEXAMETHO SONE SODIUM PHOSPHATE 1 MG MRI LOWER 25554 [facility] EXTREM 1 [facility] OTH/THN INC INC JT W/O CONTR MATRL RADIOLOGI 19891 [facility] C 1 [facility] ON KNEE 3 VIEWS LOCM Q9967 [facility] [phone] [facility] [place] [place] MG/[facility] [place] [address] [facility] ABDOMEN & 1 [facility] W/CONTRAS T MATERIAL HI OSM Q9963 [facility] CONTRST 1 [facility] [phone] MG/ML IODINE CONC ML URNLS DIP 14569 INDIO INDIO 1 [facility] STICK/TAB INC INC LET REAGENT AUTO MICROSCOP Y NRV CNDJ 68440 CHEONDOISM JULIETA Crowley AMPLT&LAT 1 NEUROLOGY NCY EA SERVICES NRV MOTR W/O F-WAVE STD NRV CNDJ 35690 [facility] AMPLT&LAT 1 CHEONDOISM CHEONDOISM ENCY EA HOSP HOSP NRV MOTOR W/F-WAVE STD MRI LOWER 89580 KRISHNA KELLER EXTREM [address] [facility] JT W/O & W/CONTR MATR NRV CNDJ 22776 CHEONDOISM JULIETA T AMPLITUDE 1 NEUROLOGY & SERVICES LATENCY EACH NERVE SENSORY H-REFLEX 52148 CHEONDOISM JULIETA T AMPLT&LAT 1 NEUROLOGY ENCY SERVICES GASTRCN/S OLEUS MUSC RADEX 67490 [facility] [place] ARCHER FOOT 1 RADIOLOGY KAHLIL COMPLETE MINIMUM 3 VIEWS URNLS DIP 27684 INDIO BORJAS 1 [facility] STICK/TAB INC INC LET REAGENT AUTO MICROSCOP Y 3D 94212 SAMMI KLARISSA RENDERING 1 MEDICAL KASSANDRA IMAGING W/INTERP& [place] [address] SAMMI CYR ABDOMEN & 1 MEDICAL KASS[facility]DRA PELVIS IMAGING W/O ASS CONTRAST MATERIAL [facility] LOWER 22346 [facility] EXTREMITY 0 N N W/O [facility] [place] [place] CONTRAST HOSPITA HOSPITA MATERIAL INITIAL 46862 [facility] 0 EMERGENCY III CHERYL DEGREE SERVICES BURN LOCAL [place] UNLISTED 70720 [facility] ANESTHESI 0 N N A [facility] PROCEDURE HOSPITA HOSPITA ANES 84478 [place] RICHARD INTEG 0 ANESTHESI JOHN EXTREMITI A GROUP ES ANT PSC TRUNK & PERINEUM NOS RADIOLOGI 89757 [facility] C 0 N N EXAMINATI [facility] [place] [place] ON FOOT 2 HOSPITA HOSPITA VIEWS BLOOD 16270 [facility] COUNT 0 N N COMPLETE [facility] [place] [place] AUTO&AUTO HOSPITA HOSPITA DIFRNTL WBC RADIOLOGI 38245 [facility] [place] ZOHAIB MAT C EXAM 0 RADIOLOGY CHEST 2 VIEWS FRONTAL&L ATERAL COMPREHEN 06723 [facility] SIVE 0 N N METABOLIC [facility] [place] [place] PANEL HOSPITA HOSPITA FLUOROSCO 81402 [facility] PY SPX UP 0 N N TO 1 [facility] [place] [place] HOUR HOSPITA HOSPITA PHYS/QHP TIME COLLECTIO 99364 [facility] N VENOUS 0 N N BLOOD [facility] [place] [place] VENIPUNCT HOSPITA HOSPITA URE ECG 39123 [facility] ROUTINE 0 N N ECG [facility] [place] [place] W/LEAST HOSPITA HOSPITA 12 LDS TRCG ONLY W/O I&R INJECTION J2405 [facility] 0 N N ONDANSETR [facility] [place] [place] ON HCL HOSPITA HOSPITA PER 1 MG REMOVAL 94306 [facility] FOREIGN 0 N N BODY FOOT [facility] [place] [place] HOSPITA HOSPITA COMPLICAT ED INJECTION J2250 [facility] 0 N N [facility] PER HOSPITA HOSPITA 1 MG LEVEL I [address] PATHOLOGY PATHOLOGY SURG 0 & & PATHOLOGY CYTOLOGY CYTOLOGY GROSS LAB LAB EXAMINATI ON ONLY RADEX 52909 [facility] FOOT 0 N N COMPLETE [facility] [place] [place] MINIMUM 3 HOSPITA HOSPITA VIEWS RADIOLOGI 75432 [facility] ESPOSITO C 0 EMERGENCY DORIAN EXAMINATI SERVICES ON FOOT 2 VIEWS RADIOLOGI 96409 [facility] [place] Kamin[place] PENNY EXAM 0 RADIOLOGY MELISSA D CHEST 2 VIEWS FRONTAL&L ATERAL RADIOLOGI 30643 [facility] C 0 [facility] EXAMINATI INC INC ON PELVIS 1/2 VIEWS URNLS DIP 23852 [facility]JAS 0 [facility] STICK/TAB INC INC LET REAGENT AUTO MICROSCOP Y RADEX HIP 65968 [facility]JAS 0 [facility] UNILATERA INC INC L COMPLETE MINIMUM 2 VIEWS EGD 17893 OWENS- OWENS- TRANSORAL 0 ALEXANDRU, ALEXANDRU, BIOPSY ROSA LEE SINGLE/MU LTIPLE ANES 25263 [place] DEPA, UPPER GI 0 ANESTHESI MARCIA ENDOSCOPY A GROUP PROXIMAL PSC TO DUODENUM SPECIAL [id number] PATHOLOGY PATHOLOGY STAIN 0 & & GROUP 1 CYTOLOGY CYTOLOGY MICROORGA LAB LAB NISMS I&R SPCL STN 34389 PATHOLOGY PATHOLOGY 2 I&R 0 & & EXCPT CYTOLOGY CYTOLOGY MICROORG/ LAB LAB ENZYME/[place] [address] PATHOLOGY PATHOLOGY SURG 0 & & PATHOLOGY CYTOLOGY CYTOLOGY LAB LAB GROSS&MIKAL ROSCOPIC EXAM ECG 13832 INDIO ADAM, ROUTINE 0 [facility] W/LEAST PROF SERV 12 LDS I&[place] [address] INDIO BORJAS AMYLASE 0 [facility] INC INC CREATINE 98422 INDIO BORJAS KINASE MB 0 [facility] FRACTION INC INC ONLY CREATINE 95868 INDIO BORJAS KINASE 0 [facility] [place] [address] [facility] B[facility]AS LIPASE 0 [facility] INC INC BLOOD 35671 [facility] BORJAS COUNT 0 [facility] COMPLETE INC INC AUTO&[place] [address] IND[facility] BORJAS TROPONIN 0 [facility] QUANTITAT INC INC JAG ECG 52585 INDIO BORJAS ROUTINE 0 [facility] ECG INC INC W/LEAST 12 LDS TRCG ONLY W/O I&R COMPREHEN 33091 INDIO BORJAS SIVE 0 [facility] METABOLIC INC INC PANEL HYALURONA J7325 ESTRELLA BANEGAS, N/DERIV 0 MEDICAL ODELL T SYNVISC/S SERV YNVISC-ON FOUNDATIO E IA INJ 1 MG APPL 16439 JUDY KIM MODALITY 0 [facility] [place] [place] 1/[facility] ULTRASOUN D EA 15 MIN THERAPEUT 82265 JUDY KIM IC PX 1/> 0 [facility] EACH 15 MIN EXERCISES RADIOLOGI 89354 INDIO INDIO C EXAM 9 [facility] BOTH INC INC KNEES STANDING ANTEROPOS T ARTHROCEN 76449 GIOVANNY REYNOLDS 9 MEDICAL ODELL T ASPIR&/IN SERV J MAJOR FOUNDATIO JT/BURSA W/O US INJECTION J3301 Promise REYNOLDS MEDICAL ODELL T TRIAMCINO SERV LONE FOUNDATIO ACETONIDE NOS 10 MG RADIOLOGI 57358 [place] Kamini CYR 9 MEDICAL EUNICE EXAMINATI IMAGING ON KNEE ASSOCIATE 1/2 VIEWS S MRI ANY 09083 CNTRL [place] LOWER 9 RADIOLOGY ADRIANA FAROOQ W/O CONTRAST MATRL RADIOLOGI 96496 CNTRL Kamini SALCEDO 9 RADIOLOGY MELISSA Santos EXAMINATI ON KNEE 3 VIEWS RADIOLOGI 44764 CNTRL Kamini SUMNER 9 RADIOLOGY J EXAMINATI ON KNEE 1/2 VIEWS TAPE A4452 [facility] CCS [place] 9 MEDICAL MEDICAL F PER 18 SQUARE INCHES SPCLTY A6251 [facility]CS CCS ABSORB 9 MEDICAL MEDICAL DRESS STERL 16 SQ/<NO ADHES BORDR GAUZE A6222 [facility] CCS IMPREG 9 MEDICAL MEDICAL NOT H2O NL SALINE/HY DROGEL 16 SQ/< BX SKIN 52082 ADDISON, ADDISON, SUBCUTANE 9 ALACIA L ALACIA L OUS&/MUCO US MEMBRANE 1 LESION LEVEL III 79046 [facility] SURG 9 Y Y PATHOLOGY [facility] GROSS&MIKAL ROSCOPIC EXAM BLOOD 42654 [facility] COUNT 9 [facility] [place] [address] [facility] THYROID 9 [facility] [place] [place] [facility] NG [place] TSH COLLECTIO 51755 [facility] N VENOUS 9 [facility] VENIPUNCT URE COMPREHEN 95698 [facility] SIVE 9 [facility] PANEL CREATINE 33015 [facility] KINASE 9 [facility] LIPID 87721 [facility] PANEL [address] [place] [address] [place] [address] [facility] ABDOMEN 9 Y Y W/[facility] T MATERIAL LOCM Q9967 [facility] [phone] Y Y MG/ML [facility] IODINE CONCENTRA TION PER ML CT PELVIS 31290 [facility] 9 Y Y W/[facility] T MATERIAL TAPE A4452 [facility] [place] 9 MEDICAL MEDICAL F PER 18 SQUARE INCHES SPCLTY A6251 [facility]CS ABSORB 9 MEDICAL MEDICAL DRESS STERL 16 SQ/<NO ADHES BORDR BASIC 07578 [facility] METABOLIC 9 Y Y [facility] CALCIUM TOTAL CULTURE 25759 [facility] BACTERIAL 9 Y Y BLOOD [facility] AEROBIC W/ID ISOLATES COLLECTIO 29341 [facility] N VENOUS 9 Y Y BLOOD [facility] VENIPUNCT URE ALGINAT/O A6196 CCS CCS TH FIBER 9 MEDICAL MEDICAL GELL DRESS STERIL PAD 16 SQ/< BLOOD 10411 [facility] COUNT 9 Y Y [facility] AUTO&AUTO DIFRNTL WBC SCR G0145 PATHOLOGY PATHOLOGY CYTOPATH 9 & & CERV/VAG CYTOLOGY CYTOLOGY SCR LAB LAB AUTO&MNL RSCR PHYS SUSCEPTIB 99888 [facility] ILITY 9 [facility] STUDY ANTIMICRO BIAL DISK METHOD CUL BACT 55113 [facility] XCPT 9 [facility] URINE BLOOD/STO OL AEROBIC ISOL CULTURE 56309 [facility] TYPING 9 [facility] IMMUNOLOG IC OTH/THN IMMUNOFLU ORES RADEX 68289 CNTRL [place] NIKKI, SHOULDER 9 RADIOLOGY RUBÉN G COMPLETE MINIMUM 2 VIEWS THERAPEUT 45048 TOMER SMALLWOOD, IC PX 1/> 8 [facility] EACH 15 PSC MIN EXERCISES THERAPEUT 28584 TOMER SMALLWOOD, IC PX 1/> 8 [facility] EACH 15 PSC MIN EXERCISES MANUAL 64767 TMOER SMALLWOOD, THERAPY 8 NAL REH[facility]ARC[facility] TQS 1/> ASSOC J REGIONS PSC EACH 15 MINUTES MANUAL 53555 TOMER SMALLWOOD, THERAPY 8 NAL REHAB [facility] TQS 1/> ASSOC J REGIONS PSC EACH 15 MINUTES THERAPEUT 46086 TOMER SMALLWOOD, IC PX 1/> 8 [facility] J EACH 15 PSC MIN EXERCISES THERAPEUT 50357 TOMER SMALLWOOD, IC PX 1/> 8 [facility] J EACH 15 PSC MIN EXERCISES MANUAL 13687 TOMER SMALLWOOD, THERAPY 8 NAL REHAB MARCOS TQS 1/> ASSOC J REGIONS PSC EACH 15 MINUTES MANUAL 03826 TOMER SMALLWOOD, THERAPY 8 NAL REHAB MARCOS TQS 1/> ASSOC J REGIONS PSC EACH 15 MINUTES THERAPEUT 84500 TOMER SMALLWOOD, IC PX 1/> 8 [facility] J EACH 15 PSC MIN EXERCISES THERAPEUT 58456 TOMER SMALLWOOD, IC PX 1/> 8 [facility] ASSOC J EACH 15 PSC MIN EXERCISES PHYSICAL 44322 TOMER SMALLWOOD, THERAPY 8 NAL REHAB MARCOS EVALUATIO ASSOC J N PSC APPL 27919 TOMER SMALLWOOD, MODALITY 8 NAL REHAB MARCOS 1/> AREAS ASSOC J PSC ULTRASOUN D EA 15 MIN MRI 70503 [facility] SPINAL 8 [facility] LUMBAR W/O CONTRAST MATERIAL NRV CNDJ 34949 TERRY STEWART, AMPLT&LAT 8 [place] LERMA ENCY EA NRV MOTOR W/F-WAVE STD NRV CNDJ 62171 TERRY STEWART, AMPLITUDE 8 [place] & LATENCY EACH NERVE SENSORY NDL EMG 1 22887 TERRY STEWART, XTR W/WO 8 [place] LERMA RELATED PARASPINA L AREAS MRI 05035 KLARISSA CYR, SPINAL 8 EUNICE EUNICE CANAL LUMBAR W/O CONTRAST MATERIAL INJECTION J1030 FAMILY FAMILY 8 CARE CARE METHYLPRE ASSOCIATE ASSOCIATE DNISOLONE S S ACETATE 40 MG Encounters Encounter Start End Date Code Location Performer Type Date OFFICE 45200 [facility] 7 7 CULAR & T VISIT SLEEP 25 CONSU MINUTES [facility] 7 7 [facility] [place] [facility] 7 7 [facility] T OFFICE [address] [place] [address] 7 T VISIT ORTHOPAED 15 ICS PSC MINUTES OFFICE 84415 [facility] 7 CULAR & T VISIT SLEEP 15 CONSU MINUTES [facility] [place] - 7 7 [facility] [place] - 7 7 [facility] [place] [facility] 7 7 [facility] T OFFICE 93328 [facility] 7 7 RICE III T NEW 30 CLINIC MINUTES PSC OFFICE [address]27 [place] [address] 7 T VISIT ORTHOPAED 15 ICS PSC MINUTES OFFICE 91717 YAMIL TAYLOR OUTPATI 7 7 REGIONAL T NEW 45 PHYSICIAN MINUTES [facility] Y[facility] - 7 7 [facility] 43949 [facility] 7 7 CULAR & T VISIT SLEEP 15 CONSU [facility] 7 7 [facility] T OFFICE 73707 [facility] 7 7 T VISIT ORTHOPAED 10 ICS [facility] 7 [facility] 15380 [facility] 7 7 [facility] T VISIT HIGH/URGE NT SEVERITY [facility]OSPITAL [facility] - 7 7 [facility] T OFFICE 44307 YAMIL FUENTES OUTPATI 7 7 DIGESTIVE T NEW 45 CARE MINUTES CENTER OFFICE 12921 [facility] 7 7 CULAR & T VISIT SLEEP 15 CONSU [facility] CHEONDOISM - 7 7 [facility] T OFFICE 28078 [facility] 7 7 CULAR & T VISIT SLEEP 25 CONSU MINUTES EMERGENCY 70039 [facility] 7 7 SHADY VISIT EMERGENCY HIGH PHYS SEVERITY& THREAT FUNCJ EMERGENCY 54453 [place] 7 7 [facility] T VISIT HIGH/URGE NT SEVERITY [facility] 7 7 [facility] T OFFICE 35243 [facility] 7 7 CULAR & T VISIT SLEEP 25 CONSU [facility] 7 [facility] INDIO - 7 7 [facility] JUDY - 7 7 [facility] T EMERGENCY 61728 [facility] DE[facility] 7 7 SHADY VISIT EMERGENCY HIGH PHYS SEVERITY& THREAT FUN EMERGENCY 53821 [place] ISELA [place] 7 7 [facility] T VISIT HIGH/URGE NT SEVERITY OFFICE 88469 [facility] 7 7 AND T VISIT MAGED, 25 PSC MINUTES OFFICE 91703 [facility] 7 7 T VISIT ORTHOPAED 10 ICS PSC MINUTES HOSPITAL INDIO - 6 6 [facility] EMERGENCY 76495 INDIO 6 6 [facility] VISIT LIMITED/M INOR PROB EMERGENCY 84303 JUSTIN CHATMAN 6 6 [facility] T VISIT HIGH/URGE NT SEVERITY OFFICE 72758 ALLERGY ZIEGLER MAR OUTPATIEN 6 6 PARTNERS T VISIT OF [place] 40 CO MINUTES OFFICE 33612 [facility] MARTI OUTPATIEN 6 6 GRE T VISIT ORTHOPAED 15 ICS PSC MINUTES HOSPITAL INDIO - 6 6 [facility] OFF[facility] 90396 [facility] MARTI OUTPATIEN 6 6 GRE T VISIT ORTHOPAED 15 ICS PSC MINUTES OFFICE 03892 ALLERGY ZIEGLER MAR OUTPATIEN 6 6 PARTNERS T VISIT OF [place] 25 CO MINUTES HOSPITAL INDIO - 6 6 [facility] OUTPATIEN [facility] HOSPITAL INDIO - 6 6 [facility] OUTPATIEN [facility] T EMERGENCY 45501 INDIO 6 6 [facility] T VISIT LIMITED/M INOR PROB EMERGENCY 81845 JUSTIN BLACKMAN [address] [facility] T VISIT MODERATE SEVERITY HOSPITAL INDIO - 6 6 [facility] OUTPATIEN [facility] H[facility]PITAL INDIO - 6 6 [facility] HOSPITAL [place] ISELAON - 6 6 [facility] T EMERGENCY 05095 INDIO 6 6 [facility] T VISIT MODERATE SEVERITY HOSPITAL INDIO - 6 6 [facility] OFFICE 88385 CHASTITY SMITH OUTPATIEN 6 6 SOP[place]IE T VISIT ORTHOPAED 15 ICS PSC MINUTES OFFICE 52352 [facility] LU[facility] OUTPATIEN 6 6 [place] T VISIT ORTHOPAED 15 ICS PLC MINUTES OFFICE 22839 INDIO SIVLER BANNER OUTPATI 6 6 [facility] T VISIT HOSPITAL 15 MINUTES OFFICE 38408 ALLERGY ZIEGLER MAR OUTPATIEN 6 6 PARTNERS T VISIT OF [place] 25 CO MINUTES HOSPITAL INDIO - 5 5 [facility] T OFFICE 97912 ALLERGY ZIEGLER MAR OUTPATIEN 5 5 PARTNERS T VISIT OF [place] 25 CO MINUTES OFFICE 22330 [place] SCIYOJANA OUTPATIEN 5 5 [facility]ISIT C[facility] [address] [facility] N OUTPATIEN COMM[facility]TIY [facility] 5 5 N OUTPATIEN COMMUNTIY T HOSPITA OFFICE 04656 [facility] OUTPATIEN 5 5 [place] T VISIT ORTHOPAED 25 ICS PLC MINUTES OFFICE 61162 [facility] OUTPATIEN 5 5 [place] T VISIT ORTHOPAED 15 ICS PLC MINUTES OFFICE 02690 BROCK LYNNE OUTPATIEN 5 5 AND JANE T VISIT MAGED, 15 PSC MINUTES OFFICE 39050 DEON LAFLEUR OUTPATIEN 5 5 N T VISIT NEUROLOGY 15 MINUTES OFFICE 48203 ALLERGY ZIEGLER MAR OUTPATIEN 5 5 PARTNERS T VISIT OF [place] 25 CO MINUTES OFFICE 02290 ALLERGY ZIEGLER MAR OUTPATIEN 5 5 PARTNERS T NEW 45 OF [place]ILLI[place] MINUTES CO OFFICE 97069 [facility] OUTPATIEN 5 5 [place] T NEW 30 ORTHOPAED MINUTES ICS PLC OFFICE 39534 DEON LAFLEUR OUTPATIEN 5 5 N T VISIT NEUROLOGY 15 MINUTES HOSPITAL INDIO - 5 5 [facility] OUTPATIEN INC T EMERGENCY 13649 INDIO 5 5 [facility] DEPARTMEN INC T VISIT MODERATE SEVERITY HOSPITAL INDIO - 5 5 [facility] OUTPATIEN INC T [facility] 5 N [facility] 5 5 N OUTPATIEN COMMUNTIY T HOSPITA OFFICE 92833 DEON LAFLEUR OUTPATIEN 5 5 N T VISIT NEUROLOGY 15 MINUTES HOSPITAL INDIO - 5 5 [facility] OUTPATIEN INC T [facility] - 5 5 N OUTPATIEN COMMUNTIY T HOSPITA OFFICE 24678 DEON LAFLEUR OUTPATIEN 5 5 N T VISIT NEUROLOGY 25 MINUTES HOSPITAL [facility] - 4 4 N OUTPATIEN COMMUNITY T HOSPITA OFFICE 26698 SAMMI CORONADO ANTIONETTE OUTPATIEN 4 4 [facility] T NEW 30 MINUTES OFFICE 80411 GILLIAN FRENCH OUTPATIEN 4 4 GRE GRE T NEW 45 MINUTES OFFICE 49260 [facility] [place] OUTPATIEN 4 4 PHYSICIAN JAM T VISIT S GROUP 15 MINUTES OFFICE 06331 MAGED MAGED OUTPATIEN 4 4 JANE JANE T VISIT 15 MINUTES HOSPITAL INDIO - 4 4 [facility]EN [facility] INDIO - 4 4 [facility] OUTPATIEN [facility] T OFFICE 64714 MAGED MAGED OUTPATIEN 4 4 JANE JANE T VISIT 15 MINUTES EMERGENCY 43705 [facility] 4 4 SHADY [facility] EMERGENCY T VISIT SERVI MODERATE SEVERITY EMERGENCY 28068 [facility] 4 4 [facility] LOW/MODER SEVERITY HOSPITAL DEON - 4 4 N OUTPATIEN COMMUNITY T [facility] INDIO - 4 4 [facility] OUTPATIEN [facility] EMERGENCY 54071 INDIO 4 4 [facility] T VISIT LOW/MODER SEVERITY EMERGENCY 72927 [facility] ASPEN 4 4 SHADY [facility] EMERGENCY T VISIT PHYS HIGH/URGE NT SEVERITY OFFICE 63723 [facility] PETSHELDON OUTPATIEN 4 4 PHYSICIAN JAM T VISIT S GROUP 15 MINUTES OFFICE 96535 ANA GERARD OUTPATIKE 4 4 MOLD POLISHER, DEN T NEW 30 PSC MINUTES HOSPITAL INDIO WORLEY 4 4 [facility] INDIO - 4 4 [facility]PATIEN [facility] OFFICE 83012 [facility] PETTEY OUTPATIEN 4 4 PHYSICIAN JAM T VISIT S GROUP 15 MINUTES Emergency SHERLYN Blackman MD (ER) 4 22:57 4 23:29 [facility] INDIO - 4 4 [facility] OUTPATIEN [facility] T EMERGENCY 22461 INDIO 4 4 [facility] T VISIT LOW/MODER SEVERITY EMERGENCY 04946 GILLIAN BLACKMAN [address] [facility] DEPARTMEN SERVICES T VISIT MODERATE SEVERITY HOSPITAL INDIO - 3 3 [facility] OUTPATIEN INC T OFFICE 57022 CHARLES PERERA OUTPATIEN 3 3 DILMA CASILLAS T VISIT 25 MINUTES OFFICE 96626 [facility] PETTEY OUTPATIEN 3 3 PHYSICIAN ALFONSO T VISIT S GROUP 15 MINUTES OFFICE 96997 MIAN ORTIZ OUTPATIEN 3 3 MATT T VISIT CHIROPRAC 15 TIC CENTE MINUTES OFFICE 99531 DEON NEAL OUTPATIEN 3 3 N T VISIT NEUROLOGY 15 MINUTES HOSPITAL [facility]GEW - 3 3 N OUTPATIG[facility]OD [facility] - 3 3 N OUTPATIEN [facility] HOSPITA OFFICE 33673 EAR, NOSE SHASHY OUTPATIEN 3 3 AND HARESH T VISIT THROAT 25 SPECIAL MINUTES OFFICE 68464 DEON NEAL OUTPATIEN 3 3 N T NEW 45 NEUROLOGY MINUTES OFFICE 57457 EAR, NOSE SHASHY OUTPATIEN 3 3 AND HARESH T VISIT THROAT [address] [facility] 3 N OUTPATIEN [facility] T HOSPITA OFFICE 91766 EAR, NOSE SHASHY OUTPATIEN 3 3 AND HARESH T NEW 45 THROAT MINUTES SPECIAL OFFICE 59308 JACKELYN HAYDEN OUTPATIEN 3 3 JAM JAM T NEW 45 MINUTES OFFICE 98391 CHARLES PERERA OUTPATIEN 3 3 DILMA CASILLAS T VISIT 15 MINUTES OFFICE 52978 CHARLES PERERA OUTPATIEN 3 3 DILMA CASILLAS T VISIT 25 MINUTES EMERGENCY 46363 IDNIO 3 3 [facility] DEPARTMEN INC T VISIT LIMITED/M INOR PROB HOSPITAL INDIO - 3 3 [facility] OUTPATIEN [facility] T EMERGENCY 88783 GILLIAN SELLERS 3 3 EMERGENCY DEPARTMEN SERVICES T VISIT HIGH/URGE NT SEVERITY EMERGENCY 53309 GILLIAN LOZOYA 3 3 EMERGENCY DEPARTMEN SERVICES T VISIT HIGH/URGE NT SEVERITY OFFICE 82823 CHARLES PERER[facility] 3 3 DILMA CASILLAS T VISIT 15 MINUTES EMERGENCY 86100 INDIO 2 2 [facility] T VISIT LOW/MODER SEVERITY HOSPITAL INDIO - 2 2 [facility] T EMERGENCY 99859 GILLIAN LOUISE 2 2 EMERGENCY DEPARTMEN SERVICES T VISIT HIGH/URGE NT SEVERITY HOSPITAL INDIO - 2 2 [facility] OUTPATIEN [facility] H[facility]PITAL INDIO - 2 2 [facility] T OFFICE 64083 BROCK GUTIÉRREZ OUTPATIEN 2 2 JAM JAM T VISIT 15 MINUTES OFFICE 29548 BROCK GUTIÉRREZ OUTPATIEN 2 2 JAM JAM T VISIT 15 MINUTES EMERGENCY 81201 GILLIAN SELLERS DEPT 2 2 EMERGENCY VISIT SERVICES HIGH SEVERITY& THREAT [facility] [place] ISELAON - 2 2 [facility] T EMERGENCY 59814 [place] ISELA[place] 2 2 [facility] T VISIT LOW/MODER SEVERITY HOSPITAL INDIO - 2 2 [facility] T EMERGENCY 92926 INDIO 2 2 [facility] T VISIT MODERATE SEVERITY EMERGENCY 56171 GILLIAN GARY 2 2 EMERGENCY III CHERYL DEPARTMEN SERVICES T VISIT HIGH/URGE NT SEVERITY HOSPITAL INDIO - 2 2 [facility] OUTPATIEN INC T OFFICE 29639 BROCK GUTIÉRREZ OUTPATIEN 2 2 ALFONSO HAMILTON T VISIT 15 MINUTES HOSPITAL INDIO - 2 2 [facility] OUTPATIEN [facility] T EMERGENCY 41915 INDIO 2 2 [facility] T VISIT LIMITED/M INOR [facility] [address] [facility] T OFFICE [address] [place] [address] 2 HOSPITAL T NEW 20 MINUTES [address] [address] T OFFICE 17088 ANAYELI TREVIZO OUTPATIEN 2 2 T VISIT 15 MINUTES OFFICE 37910 [place] [address] HOSPITAL T VISIT 10 MINUTES OFFICE 64410 ANAYELI TREVIZO OUTPATIEN 2 2 T NEW 30 MINUTES OFFICE 73267 [facility] OUTPATI[facility] 2 2 [place] T VISIT ORTHOPAED 15 ICS PLC MINUTES OFFICE 97585 MAGED LYNNE OUTPATIEN 1 1 JANE LARA T VISIT 25 MINUTES HOSPITAL INDIO - 1 1 [facility] OUTPATIEN [facility] T OFFICE 20198 [facility] LUIS OUTPATIEN 1 1 [place] T NEW 30 ORTHOPAED MINUTES [facility] [place] [facility] 1 1 [facility] [place] - 1 1 [facility] T EMERGENCY 75649 GILLIAN BLACKMAN [address] [facility] T VISIT HIGH/URGE NT SEVERITY HOSPITAL INDIO - 1 1 [facility] OUTPATIEN [facility] T EMERGENCY 46995 [facility] 1 [facility] LOW/MODER SEVERITY [facility] - 1 1 [facility] IND[facility] - 1 1 [facility] EMERGENC[facility] [id number] GILLIAN LARA DEPT 1 1 EMERGENCY VISIT SERVICES HIGH SEVERITY& THREAT FUNCJ EMERGENCY 98123 IND[facility] 1 1 [facility] T VISIT LOW/MODER SEVERITY [facility] IND[facility] 0 0 [facility] 84665 GILLIAN GARY 0 0 EMERGENCY [facility] SERVICES T VISIT HIGH/URGE NT SEVERITY EMERGENCY 34033 INDIO 0 0 [facility] T VISIT LOW/MODER SEVERITY [facility] 0 [facility] 54214 GILLIAN ESPOSITO 0 0 EMERG[facility]Y [facility] DE[facility] SERVICES T VISIT HIGH/URGE NT SEVERITY EMERGENCY 82341 [facility] 0 0 N [id number] 0 MEDICAL CITLALLI Santos T VISIT SERV 10 FOUNDATIO MINUTES EMERGENCY 42334 INDIO 0 0 [facility] T VISIT MODERATE SEVERITY [facility]OSPITAL INDIO - 0 0 [facility] OUTPATIEN [facility] T EMERGENCY 85582 GILLIAN BLACKMAN, 0 0 EMERGENCY [facility] T VISIT HIGH/URGE ASSOCIATE NT S SEVERITY [facility] [place] - 0 0 [facility] EMERGENCY 16020 INDIO 0 0 [facility]ISIT HIGH/URGE NT SEVERITY EMERGENCY 21546 GILLIAN SIMMONS, DEPT 0 0 EMERGENCY NICOL M VISIT SERVICES HIGH SEVERITY& ASSOCIATE THREAT S [facility] INDIO - 0 0 [facility] 9 9 [facility] T OFFICE 58427 ESTRELLA MAKEN[facility]IE [facility] 9 9 [facility] VISIT SERV 15 FOUNDATIO MINUTES OFFICE 59161 ESTRELLA MAKEN[facility]IE [facility] 9 9 [facility] VISIT SERV 15 FOUNDATIO MINUTES OFFICE 74392 ESTRELLA MAKEN[facility] 9 9 [facility] NEW 30 SERV MINUTES [facility] INDIO - 9 9 [facility] 9 [facility] 9 9 [facility] UNIVERSIT - 9 9 Y [facility] T OFFICE 62444 [facility] 9 9 Y T VISIT HOSPITAL 25 MINUT[facility] OFFICE 90563 [facility] 9 9 Y T VISIT HOSPITAL [address] [address] [facility] 9 9 ALACIA L ALACIA L T VISIT 10 MINUTES HOSPITAL [facility] - 9 9 [facility] UNIV[facility] 9 9 Y [facility] T OFFICE 27105 [facility] 9 9 [place] L [place] L T VISIT [address]ES [address] [facility] 9 9 [place] L [place] L T VISIT 15 MINUTES HOSPITAL UNIVERSIT - 9 9 Y [facility] T [facility] 9 [facility] T HOSPITAL UNIVERSIT [facility] 9 9 Y [facility] T OFFICE 27793 [facility] 9 9 AL[place]IA L AL[place]IA L T VISIT 15 MINUTES OFFICE 48783 [facility] 9 9 Y T VISIT HOSPITAL 25 MINUTES HOSPITAL UNIVERSIT - 9 9 Y [facility] T OFFICE 99483 [facility] 9 9 ALACIA L ALACIA L T NEW 45 MINUTES OFFICE 16991 [facility] 9 9 Y T VISIT HOSPITAL 40 MINUTES OFFICE 26436 [facility] EUNICE, CONSULTAT 9 9 PAIN SOC[place]RO R ION MEDICIINE NEW/ESTAB PSC PATIENT 60 MIN [facility] 9 [facility] T OFFICE 49087 GLEN, GLEN, OUTPATIEN 8 8 DEVONTEMEREDITH WHITNEY T VISIT [address] [facility] T OFFICE [id number] GLEN, GLEN, CONSULTAT 8 8 DEVONTE DEVONTE ION NEW/ESTAB PATIENT 40 MIN EMERGENCY 08300 IND[facility] 8 [facility] V[facility]M [facility] - 8 8 [facility] T OFFICE 18568 EDGAR HERNÁNDEZ OUTPATIEN 8 8 LESLEY Abdul T NEW 45 MINUTES OFFICE 40344 BEBE MCDUFFIE 8 8 RUDI SCHUSTER T T VISIT ASSOCIATE 15 S MINUTES OFFICE 33732 FAMILY LATRICIA, OUTPATIEN 8 8 CARE R ELIZABETH T VISIT ASSOCIATE 15 S MINUTES OFFICE 00625 FAMILY BENJI, J OUTPATIEN 8 8 CARE G T VISIT ASSOCIATE 15 S MINUTES OFFICE [id number] FAMILY FAMILY OUTPATIEN 8 8 CARE CARE T VISIT ASSOCIATE ASSOCIATE 15 S S MINUTES OFFICE [id number] FAMILY FAMILY OUTPATIEN 8 8 CARE CARE T VISIT ASSOCIATE ASSOCIATE 25 S S MINUTES OFFICE 70072 FAMILY FAMILY OUTPATIEN 8 8 CARE CARE T VISIT ASSOCIATE ASSOCIATE 15 S S MINUTES
--- OUTSIDE RECORDS SUMMARY | 2017-07-29 20:10 | External Medical Summary Rpt | CCD ---
Author Author , KELSY Organization KELSY Address Unknown Phone [email or web address]Pad Care Team Providers Care Structural Manager Name Role Phone [employer] Unavailable Unavailable INC, [employer] Unavailable Unavailable INC, [employer] [facility] Unavailable Unavailable [place], [facility] [place] MAGED, MAGED Unavailable Unavailable MAGED JANE, MAGED Unavailable Unavailable JANE MAGED JANE, MAGED Unavailable Unavailable JANE DIANA MATT, Unavailable Unavailable Kenya ARNETT, Unavailable Unavailable Kenya ORTIZ ARMS DON, ARMS DON Unavailable Unavailable [facility] Unavailable Unavailable [facility] Unavailable Unavailable MEDICAL GROUP, [facility] BEINEKE LILLIE, BEINEKE Unavailable Unavailable LILLIE SILVER TER, SILVER TER Unavailable Unavailable ADDISON, ALACIA L, Unavailable Unavailable ADDISON, ALACIA L [facility] Unavailable Unavailable [facility]ATORIES, [facility] Unavailable Unavailable [facility]ATORIES, [facility] Unavailable [facility]available [facility] Unavailable Unavailable H[facility]PITAL, [facility] Unavailable Unavailable GUADALUPE FRA, GUADALUPE FRA Unavailable Unavailable GALICIA CAR, GALICIA Unavailable Unavailable CAR [facility] & Unavailable Unavailable [facility], [facility], [facility] Unavailable Unavailable [facility], Unavailable Unavailable [facility] Unavailable [facility] CHESTNUT, [facility] Unavailable Unavailable [facility] & Unavailable Unavailable DUBILIER, [facility] DUBILIER [facility] Un[facility] Unavailable [facility]available [facility] Unavailable Unavailable PHYSICIAN PRA, YAMIL [facility] PHYSICIAN PRA [facility], Unavailable Unavailable [facility] RENDON T, RENDON T Unavailable Unavailable AMIN, AMIN Unavailable Unavailable AMIN GRAEME, AMIN GRAEME Unavailable Unavailable Kenya LEBLANC, BENJI, Unavailable Unavailable Kenya CYR, KLARISSA Unavailable Unavailable KLARISSA KASSANDRA, Unavailable Unavailable KLARISSA KASSANDRA EUNICE CYR, Unavailable Unavailable KLARISSA, EUNICE [place] [facility] Unavailable Unavailable [place] MARTI, MARTI Unavailable Unavailable MARTI GRE, MARTI Unavailable Unavailable GRE [facility] Unavailable Unavailable ASSOCIAT, [facility] DAUKAS ROSALES, DAUKAS Unavailable Unavailable MARCOS QUINTANA, Unavailable Unavailable MARCOS [place] ROBERT A, Unavailable Unavailable ODELL REAL RAYMOND, DEPA, Unavailable Unavailable SOCORRO PERES, Unavailable Unavailable SOCORRO DAWSON R CLAUDIA, CLAUDIA Unavailable Unavailable JONAH MAT, JONAH MAT Unavailable Unavailable [facility] Un[facility] BROCK DIA Unavailable Unavailable ALFONSO HAMILTON, BROCK Unavailable Unavailable ALFONSO PATRICK, Unavailable Unavailable P[facility], [facility], [facility] ESPOSITO DORIAN, ESPOSITO Unavailable Unavailable DORIAN GUALBERTO SCO, GUALBERTO SCO Unavailable Unavailable NICOL SIMMONS, Unavailable Unavailable NICOL SIMMONS, SURAJ Unavailable Unavailable MIKAL ELVIE RUELAS, Unavailable Unavailable ELVIE RUELAS [facility] Unavailable Unavailable HOSPITA, [facility] Unavailable Unavailable HOSPITA, [facility], Unavailable Unavailable [facility] CHARLES PERERA MD, Unavailable Unavailable ODELL PEREZ MD, Unavailable Unavailable ODELL BANEGAS GRAY ROB Unavailable Unavailable GREGONIParul GREGONIParul Unavailable Unavailable NIKKI RHO, NIKKI Unavailable Unavailable RHO NIKKI, RUBÉN G, Unavailable Unavailable NIKKI, RUBÉN G CEVALLOS, CEVALLOS Unavailable Unavailable HARPEL SONJA, HARPEL Unavailable Unavailable SONJA GARRETT, GARRETT Unavailable Unavailable LESLEY HERNÁNDEZ, Unavailable Unavailable LESLEY HERNÁNDEZ [facility] Unavailable Unavailable INC, [facility] Un[facility] Unavailable [facility], [facility] Unavailable Unavailable HOSPITAL P, [facility] P PATTERSON MANNY, PATTERSON MANNY Unavailable Unavailable [facility], Unavailable Unavailable [facility] STACI III, SMALL Unavailable Unavailable III FRACISCO, Unavailable Unavailable FRACISCO LEE, ROSA CROW JR, CROW JR Unavailable Unavailable RYNE III JAYESH, Unavailable Unavailable RYNE III ADRIANA RONDON, Unavailable Unavailable ADRIANA MICHELE [facility] Unavailable Unavailable GROUP PS, [facility] Unavailable Unavailable [facility], [facility], Unavailable Unavailable [facility] KOSTELIC, LAURIE K, Unavailable Unavailable KOSTELIC, LAURIE K [facility] Un[facility] Unavailable Unavailable HOLDINGS, [facility] [employer] [facility], Unavailable Unavailable [facility] [employer] [facility] [employer] [facility] JAIR JR, JAIR JR Unavailable Unavailable JAIR JR DWI, JAIR Unavailable Unavailable JR DWI JAIR, YSABEL E, Unavailable Unavailable JAIR, YSABEL E [facility], Unavailable Unavailable [facility] [place] DIVORCE LAWYER, [facility] LOCKSTADT, LOCKSTADT Unavailable Unavailable DUONG ELIU, DUONG Unavailable Unavailable ELIU CITLALLI MCKENZIE, JONAH, Unavailable Unavailable THOMAS ROLAND Unavailable Unavailable GILLIAN GRE, Unavailable Unavailable GILLIAN GRE GILLIAN GRE, Unavailable Unavailable G[facility]IAN GRE [facility] Unavailable Unavailable SERVICES, [facility] RIA WINSLOW, RIA Unavailable Unavailable [place] HAYDEN JAM, Unavailable Unavailable HAYDENALICIA HAMILTON, Unavailable Unavailable HAYDENALICIA LOPEZ, RICHARD Unavailable Unavailable JOHN MULBERRY MARIELY T, Unavailable Unavailable MULBERRY MARIELY T [facility] Unavailable Unavailable [facility], [facility] Unavailable Unavailable [facility] Maryellen ROME, Unavailable Unavailable Maryellen ROME JOHN, Unavailable Unavailable FLORENTIN STEWART OWENS JOS Unavailable Unavailable [facility], Unavailable [facility]available [facility], [facility] Unavailable Unavailable LAB, [facility] PETTEY JAM, PETTEY Unavailable Unavailable JAM CALVERT DOMINIQUE, CALVERT [...] Unavailable SOKAN BAB, SOKAN BAB Unavailable Unavailable [facility], Unavailable Unavailable [facility] LILLIE [facility] Unavailable Unavailable EMERGENCY PHYS, [facility] Unavailable Unavailable EMERGENCY SERVI, [facility], Unavailable Unavailable [facility] ARCHER KAHLIL, Unavailable Unavailable ARCHER KAHLIL PARMJIT ELIU, PARMJIT Unavailable Unavailable [facility], Unavailable Unavailable [facility] [place], [place] Unavailable Unavailable [facility] Unavailable Unavailable [facility]591, [facility] Unavailable Unavailable [facility], [facility] WEHRMAN III CHERYL, Unavailable Unavailable WEHRMAN III CHERYL LAZARUS LOUISE, LAZARUS ASPEN Unavailable Unavailable LUIS SOPHIE, LUIS Unavailable Unavailable [...] 06-27-2017 [facility] L[facility] & SLEEP UNSPECIFIED CONSU H48431 ENCOUNTER 06-27-2017 [facility] FOR LAR & SLEEP PREPROCEDUR CONSU AL CARIOVASCUL AR EXAM J301 ALLERGIC 06-22-2017 [facility] RHINITIS PART[facility]ERS OF DUE TO [place] POLLEN J3081 ALLERG 06-22-2017 [facility] RHINITIS [facility] OF D/T ANIMAL [place] CAT DOG HAIR & DANDER J3089 OTHER 06-22-2017 [facility] ALLERGIC PART[facility]ERS OF RHINITIS [place] E785 HYPERLIPIDE 06-17-2017 [facility] UNSPECIFIED HOSPITAL N390 URINARY 06-17-2017 [facility] INFECTION HOSPITAL SITE NOT SPECIFIED R5383 OTHER 06-17-2017 [facility] P08973 ENCOUNTER 06-17-2017 [facility] OTHER [facility] PREPROCEDUR HOSPITAL AL EXAMINATION R0602 SHORTNESS 06-03-2017 [facility] [place] OF BREATH RADIOLOGY R072 PRECORDIAL 06-03-2017 [facility] [place] PAIN RADIOLOGY M1711 UNILATERAL 06-02-2017 [facility] OSTEOARTHRI S PSC TIS RIGHT KNEE E875 HYPERKALEMI 05-31-2017 [facility] A LAR & SLEEP CONSU A048 OTHER 05-06-2017 [place] SPECIFIED [facility]ERIAL [facility] INTESTINAL INFECTIONS R05 COUGH 05-03-2017 [facility] R41408 MIGRAINE 04-15-2017 NEW UNS NOT [place] INTRACT [...] & CAUSE OF DZ DUBILIER CLASSIFIED ELSW D55749 UNSPECIFIED 02-02-2017 [facility] UNCOMPLICAT HOSPITAL ED K317 POLYP OF 02-02-2017 [facility] CLAIRE & DUODENUM DUBILIER K3189 OTHER 02-02-2017 [facility] DISEASES OF CLAIRE & STOMACH DUBILIER AND DUODENUM R079 CHEST PAIN 02-02-2017 [place] UNSPECIFIED [facility] HOSPITAL R1310 DYSPHAGIA 02-02-2017 [facility] HOSPITAL V84272 OTHER LONG 02-02-2017 [place] TERM [facility] CURRENT HOSPITAL DRUG THERAPY G479 SLEEP 01-25-2017 [place] DISORDER [facility] UNSPECIFIED HOSPITAL R0683 SNORING 01-25-2017 [facility] J209 ACUTE 01-09-2017 [facility] BRONCHITIS N EMERGENCY UNSPECIFIED PHYS R509 FEVER 01-09-2017 [facility] [place] UNSPECIFIED RADIOLOGY J80843 PERSONAL 01-09-2017 [facility] HISTORY OF [facility] CALCULI Z886 ALLERGY 01-09-2017 [place] STATUS TO [facility] ANALGESIC HOSPITAL AGENT STATUS R1013 EPIGASTRIC 12-31-2016 [facility] C49616 UNSPECIFIED 12-28-2016 [facility] LAR & SLEEP WITH ACUTE CONSU EXACERBATIO N R0600 DYSPNEA 12-13-2016 [facility] UNSPECIFIED [facility] [place] R9439 ABNORMAL 12-13-2016 [facility] RESULT OT HEALTH CARDIOVASCU MEDICAL LR FUNCTION GROUP STUDY Z8249 FAMILY HX 12-09-2016 [facility] ISCHEMIC LAR & SLEEP HRT DZ OTH CONSU DZ CIRC SYSTEM M4806 SPINAL 12-03-2016 [facility] STENOSIS ORTHOPAEDIC LUMBAR S PSC REGION E7800 PURE 11-24-2016 [facility] HYPERCHOLES MEM HOSP TEROLEMIA INC UNSPECIFIED M545 LOW BACK 11-12-2016 [facility] PAIN ORTHOPAEDIC S PSC B373 CANDIDIASIS 11-02-2016 [facility] AND OF VULVA MAGED, AND VAGINA PSC T38040 CHRONIC 11-02-2016 [facility] MIGRAINE MAGED, W/O AURA PSC INTRACT W/O STAT MIGR J0190 ACUTE 11-02-2016 [facility] AND SINUSITIS MAGED, UNSPECIFIED PSC Z6832 BODY MASS 11-02-2016 [facility] AND INDEX BMI MAGED, 32.0-32.9 PSC ADULT S11126 PRESENCE OF 10-05-2016 [facility] 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 F36739 PRESENCE OF 10-05-2016 [facility] LEFT ORTHOPAEDIC ARTIFICIAL S PSC KNEE JOINT J680 BRONCHITIS 09-28-2016 [facility] & PNEUMONIT PHYSICIANS, D/T CHEM [facility] GASE FUME VAPOR O2640VN TOXIC 09-28-2016 [facility] EFFECT [facility] P ACCIDENTAL INIT ENC X79995 UNS PLACE 09-28-[address] [facility] OF OCCUR EXT G4489 OTHER 09-08-2016 [facility] HEADACHE PARTNERS OF SYNDROME [place] J0180 OTHER ACUTE 09-08-2016 [facility] SINUSITIS [facility] OF [place] J4530 MILD 09-08-2016 [facility] PERSISTENT PARTNERS OF ASTHMA [place] UNCOMPLICAT ED X82822 SPONDYLOSIS 08-05-2016 [place] W/O MEDICAL MYELOPATH/R IMAGING ASS ADICULPATHY LS RGN M5126 OTH 08-05-2016 [place] INTERVERTEB MEDICAL RAL DISC IMAGING ASS DISPLACEMEN T LUMBAR RGN M1712 UNILATERAL 07-22-2016 [facility] OSTEOARTHRI S PSC TIS LEFT KNEE H1013 ACUTE 07-16-2016 [place] [facility] TIS BILATERAL Z1231 ENCOUNTER 05-12-2016 [place] SCREENING MEDICAL MAMMO MALIG IMAGING ASS NEOPLASM BREAST N951 MENOPAUSAL 04-29-2016 [facility] CLIMACTERIC GROUP STATES H06567 ENCOUNTER 04-29-2016 [facility] TRY ON BASTER EXAM PHYSICIANS GENERAL RTN GROUP W/O ABNORMAL FIND Z1212 ENCOUNTER 04-29-2016 [facility] SCREENING PHYSICIANS MALIGNANT GROUP NEOPLASM RECTUM Z7253 HIGH RISK 04-29-2016 [facility] BISEXUAL PHYSICIANS BEHAVIOR GROUP G8918 OTHER ACUTE 04-24-2016 [facility] PHYSICIANS, POSTPROCEDU PLLC RAL PAIN H09772 PAIN IN 04-24-2016 [facility] LEFT KNEE MEM HOSP INC M179 OSTEOARTHRI 04-14-2016 [facility] TIS OF KNEE ANESTHESIA ASSOCIAT UNSPECIFIED Z0001 ENCOUNTER 04-06-2016 [facility] MEDICAL INCORPORAT EXAM W/ABNORMAL FIND M1611 UNILATERAL 03-30-2016 [facility] OSTEOARTHRI [facility] TIS RIGHT HIP H6000 ABSCESS OF 02-25-2016 [facility] EXTERNAL PHYSICIANS, EAR PLLC UNSPECIFIED EAR H6003 ABSCESS OF 02-25-2016 [place] [facility]NAL [facility] EAR INC BILATERAL S19172Y OTH TEAR 12-17-2015 [facility] MED ORTHOPAEDIC MENISCUS S PLC CURR INJ LT KNEE SBSQT ENC J029 ACUTE 12-02-2015 [place] [facility] J4520 MILD 11-28-2015 [facility] INTERMITTEN PARTNERS OF T ASTHMA [place] UNCOMPLICAT ED Z8739 PERSONAL HX 09-22-2015 [facility] MUSCULOSKEL INC SYS&CONNECT V TISS W76924 CHONDROMALA 08-19-2015 [facility] ANDREA LEFT COMMUNTIY KNEE HOSPITA L49857B OTH TEAR 08-19-2015 [place] MED ANESTHESIA MENISCUS GROUP PS CURR INJ LT KNEE INIT ENC D67148 MIGRAINE 07-04-2015 [facility] W/O AURA NEUROLOGY INTRACT W/O STAT MIGRAINOSUS 2770 ALLERGIC 07-02-2015 [facility] RHINITIS PARTNERS OF DUE TO [place] POLLEN 4772 ALLERGIC 07-02-2015 [facility] RHINITIS PARTNERS OF DUE TO [place] ANIMAL HAIR AND DANDER 4778 ALLERGIC 07-02-2015 [facility] RHINITIS PARTNERS OF DUE TO [place] OTHER ALLERGEN 43889 ASTHMA, 06-13-2015 [facility] UNSPECIFIED PARTNERS OF , [place] UNSPECIFIED STATUS 7840 HEADACHE 06-13-2015 [facility] [place] 4720 CHRONIC 05-23-2015 [place] [address] OSTEOARTHRO 05-21-2015 [facility] [place] SIS UNSPEC ORTHOPAEDIC WHETHER S PLC GEN/LOC LOWER LEG 97322 CHRONIC 04-03-2015 [facility] MIGRAINE NEUROLOGY W/O AURA W/O INTRACTABLE W/O SM V7612 OTHER 03-31-2015 [place] SCREENING MEDICAL MAMMOGRAM IMAGING ASS 6272 SYMPTOMATIC [...] AND ABSCESS MEM HOSP OF FACE INC 53210 NEW DAILY 03-06-2015 [facility] PERSISTENT COMMUNTIY HEADACHE HOSPITA 7920 NONSPECIFIC 03-06-2015 [facility] ABNORMAL CLAIRE & FINDING IN [facility] [address]00 PAIN IN 03-04-2015 [facility] JOINT, COMMUNTIY LOWER LEG HOSPITA V571 OTHER 02-07-2015 [facility] PHYSICAL MEM HOS[facility] THERAPY INC 92256 MIGRAINE 02-04-2015 [facility] [place] UNSP W/O RADIOLOGY INTRACT W/O STATUS MIGRAINOSUS 7231 CERVICALGIA 01-29-2015 [facility] 42979 PRIMARY 10-01-2014 [facility] LOCALIZED TECHNOLOGIE OSTEOARTHRO S INC SIS LOWER LEG 7295 PAIN IN 10-01-2014 [facility] SOFT TECHNOLOGIE TISSUES OF S INC LIMB 72031 PAIN IN 09-10-2014 [facility] [place] JOINT RADIOLOGY PELVIC REGION AND THIGH 17010 DISORDER OF 09-10-2014 [place] BONE AND MSO, [employer] CARTILAGE UNSPECIFIED 39985 GENU VARUM 09-10-2014 [place], [employer] V5869 LONG-TERM 09-10-2014 [facility] (CURRENT) COMMUNITY USE OF HOSPITA OTHER MEDICATIONS 03073 UNSPECIFIED 08-17-2014 [facility] SUBJECTIVE GRE VISUAL DISTURBANCE 75537 OTHER 08-17-2014 [facility] VISUAL GRE DISTORTIONS AND ENTOPTIC PHENOMENA 96522 UNSPECIFIED 08-17-2014 [place] [address] SCLERAL 08-17-2014 [facility] ECTASIA GRE 42969 CHONDROMALA 08-01-2014 [facility] ANDREA PHYSICIANS GROUP V0481 NEED 07-16-2014 [facility] PROPHYLACTI PHARMACY C #591 VACCINATION &INOCULATIO N FLU 40424 RESTLESS 05-16-2014 MAGED JANE LEGS SYNDROME 33897 INSOMNIA 05-16-2014 MAGED J[facility] UNSPECIFIED 7172 DERANGEMENT 04-08-2014 [facility] OF MEM HOSP POSTERIOR INC HORN OF MEDIAL MENISCUS 83444 DERANGEMENT 04-08-2014 [facility] OF MEM HOSP ANTERIOR INC HORN OF LATERAL MENISCUS 37507 PLICA 04-08-2014 [facility] SYNDROME PHYSICIANS GROUP 8360 TEAR MEDIAL 04-08-2014 [facility] CARTILAGE PHYSICIANS OR MENISCUS GROUP KNEE CURRENT 8361 TEAR 04-08-2014 [facility] LATERAL MEM HOSP CARTILAGE INC OR MENISCUS KNEE CURRENT 2724 OTHER AND 04-03-2014 [facility] UNSPECIFIED [facility] P HYPERLIPIDE STEPH 6829 CELLULITIS 03-28-2014 MAGED JANE AND ABSCESS OF UNSPECIFIED SITE 47351 ABDOMINAL 03-28-2014 MAGED JANE PAIN OTHER SPECIFIED SITE 6869 UNSPEC 03-05-2014 [facility] LOCAL COMMUNITY INFECTION HOSPITA SKIN&SUBCUT ANEOUS TISSUE 7048 OTHER 03-05-2014 [facility] SPECIFIED COMMUNITY DISEASE OF HOSPITA HAIR&HAIR FOLLICLES 99986 TOXIC 03-05-2014 [facility] EFFECT OF COMMUNITY OTHER HOSPITA SUBSTANCES 9953 ALLERGY 03-05-2014 [facility] UNSPECIFIED N EMERGENCY NOT SERVI ELSEWHERE CLASSIFIED 16959 DEGEN 03-04-2014 [place] LUMBAR/LUMB MEDICAL OSACRAL IMAGING ASS INTERVERTEB RAL DISC 7242 LUMBAGO 03-04-2014 [facility] 8472 LUMBAR 03-04-2014 [facility] SPRAIN AND N EMERGENCY STRAIN PHYS 92768 CONTUSION 03-04-2014 [facility] OF KNEE N EMERGENCY PHYS E8888 OTHER FALL 03-04-2014 [facility] N EMERGENCY PHYS 05722 SYNOVIAL 02-22-2014 [facility] CYST OF PHYSICIANS POPLITEAL GROUP SPACE 86385 OTHER 01-25-2014 [place] MALAISE AND DIVORCE LAWYER, PSC FATIGUE 34612 LOSS OF 01-25-2014 [place] WEIGHT DIVORCE LAWYER, PSC 6279 UNSPECIFIED 12-27-2013 [facility] MENOPAUSAL& INC POSTMENOPAU GRIS DISORDER 96733 EFFUSION OF 12-24-2013 [place] LOWER LEG MEDICAL JOINT IMAGING ASS V148 PERSONAL 10-18-2013 [place] HISTORY [facility] ALLERGY OTH INC SPEC MEDICINAL AGTS 79421 MASTODYNIA 06-19-2013 [facility]OS[facility] INC 6101 DIFFUSE 06-14-2013 CHARLES PERERA MD MASTOPATHY 41921 OTHER SIGN 06-14-2013 CHARLES PERERA MD IN BREAST 7243 SCIATICA 06-06-2013 [place] [facility] 7393 NONALLOPATH 06-06-2013 [place] IC LESION CHIROPRACTI OF LUMBAR C CENTE REGION NEC 7394 NONALLOPATH 06-06-2013 [place] IC LESION CHIROPRACTI OF SACRAL C CENTE REGION NEC 7395 NONALLOPATH 06-06-2013 [place] IC LESION CHIROPRACTI OF PELVIC C CENTE REGION NEC 57264 CHRONIC 05-18-2013 [facility] MIGRAINE NEUROLOGY W/O W/INTRACTAB LE W/O SM 470 DEVIATED 04-18-2013 [facility] NASAL COMMUNITY SEPTUM HOSPITA 4739 UNSPECIFIED 04-18-2013 [place] SINUSITIS ANESTHESIA GROUP PS 4780 HYPERTROPHY 04-18-2013 [facility] OF NASAL COMMUNITY TURBINATES HOSPITA 24814 OTHER 04-18-2013 [facility] DISEASES OF COMMUNITY NASAL HOSPITA CAVITY AND SINUSES V7283 OTHER 04-12-2013 [facility] SPECIFIED COMMUNITY PRE-OPERATI HOSPITA VE EXAMINATION 7391 NONALLOPATH 03-02-2013 [place] IC LESION CHIROPRACTI OF CERVICAL C CENTE REGION NEC 41497 CHRONIC 2013 [facility] TENSION JAM TYPE HEADACHE 74286 SENILE 2013 [facility] RETICULAR JAM DEGENERATIO N PERIPHERAL RETINA 75913 DECREASED 12-08-2012 [place] [address] CONTUSION 11-11-2012 [facility] BACK EMERGENCY SERVICES 7244 THORACIC/JANINE 09-01-2012 [facility] MBOSACRAL EMERGENCY NEURITIS/RA SERVICES DICULITIS UNSPEC 7202 SACROILIITI 08-07-2012 [place] S NOT CHIROPRACTI ELSEWHERE C CENTE CLASSIFIED 75913 DISRUPTION 08-03-2012 [facility] OF EXTERNAL REFERNCE OPERATION LABORATORIE SURGICAL S WOUND 7933 NONSPECIFIC 07-19-2012 [place] ABN FINDNG CHIROPRACTI RAD&OTH C CENTE EXAM BILARY TRCT 3558 UNSPECIFIED 07-04-2012 [facility] JAM MONONEURITI S OF LOWER LIMB 8479 SPRAIN AND 07-04-2012 [facility] ALFONSO STRAIN OF UNSPECIFIED SITE OF BACK 5589 OTH&UNSPEC 05-16-2012 [facility] NONINFECTIO EMERGENCY US SERVICES GASTROENTER ITIS&COLITI S 86114 ABDOMINAL 05-16-2012 [facility] [place] PAIN, RADIOLOGY UNSPECIFIED SITE V145 PERSONAL 05-16-2012 [facility] HISTORY OF COMMUNITY ALLERGY TO HOSPITAL NARCOTIC AGENT 7094 FOREIGN 05-01-2012 [facility] BODY EMERGENCY GRANULOMA SERVICES SKIN&SUBCUT ANEOUS TISSUE 7296 RESIDUAL 05-01-2012 [place] FOREIGN MEDICAL BODY IN IMAGING ASS SOFT TISSUE 8930 OPEN WOUND 05-01-2012 [facility] TOE WITHOUT EMERGENCY MENTION SERVICES COMPLICATIO N E9179 OTHER 05-01-2012 [facility] STRIKING EMERGENCY AGAINST SERVICES W/WO SUBSEQUENT FALL V065 NEED 05-01-2012 [facility] PROPHYLACTI MEM HOSP C INC VACCINATION W/TETANUS-D [facility] 4619 ACUTE 01-05-2012 [facility] SINUSITIS, UNSPECIFIED 4779 ALLERGIC 01-05-2012 [facility] RHINITIS CAUSE UNSPECIFIED 57362 NON-HEALING 11-19-2011 [facility] WOUND NEC 55594 DISRUPTION 11-16-2011 [facility] UNSPECIFIED 94969 PAIN IN 10-11-2011 [facility] [place] [facility], ORTHOPAEDIC ANKLE AND S PLC FOOT 6918 OTHER 09-17-2011 [facility] ATOPIC DERMATITIS AND RELATED CONDITIONS 7820 DISTURBANCE 09-10-2011 [place] OF SKIN MEDICAL SENSATION IMAGING ASS E8889 UNSPECIFIED 06-22-2011 [facility] [place] FALL RADIOLOGY 8792 OPEN WOUND 04-20-2011 [facility] ABD WALL COMMUNITY ANT WITHOUT HOSPITAL MENTION COMP 96061 OTHER 04-20-2011 [facility] [place] POSTOPERATI RADIOLOGY VE INFECTION NEC 70143 UNSPECIFIED 03-10-2011 [facility] URETHRITIS EMERGENCY SERVICES 3569 UNSPEC 02-02-2011 [facility] HEREDIT&IDI [facility] OPATHIC HOSP PERIPHERAL NEUROPATHY 26721 CALCANEAL 01-14-2011 [facility] [place] SPUR RADIOLOGY 81291 HEMATURIA 01-12-2011 [facility] UNSPECIFIED EMERGENCY SERVICES 7880 RENAL COLIC 01-12-2011 [facility] 9176 FOOT&TOE 08-31-2010 [facility] W/[facility] SOL OPN HOSPITA WND&W/O MENTION INF 75621 ERYTHEMA 06-03-2010 [facility] EMERGENCY OF BREAST SERVICES 74125 ERYTHMA DUE 06-03-2010 [facility] [place] [address] ERYTHEMA 06-03-2010 [facility]GENCY OF SERVICES ABDOMINAL WALL 79689 ERYTHEMA 06-03-2010 [facility]Y SERVICES UNSPECIFIED SITE LOWER LIMB 50811 ERYTHEMA 06-03-2010 [facility] EMERGENCY OF KNEE SERVICES 67013 ERYTHEMA 06-03-2010 [facility] OF THIGH INC 515 POSTINFLAMM 05-04-2010 [facility] [place] ATORY RADIOLOGY PULMONARY FIBROSIS 7962 ELEVATED BP 05-03-2010 [facility] WITHOUT DX HOSPITA HYPERTENSIO N 8921 OPEN WOUND 05-03-2010 [facility] OF FOOT EMERGENCY EXCEPT TOE SERVICES ALONE COMPLICATED E915 FOREIGN 05-03-2010 [facility] BODY [facility]ERGENCY ACCIDENTALL SERVICES Y ENTERING OTHER ORIFICE 7862 COUGH 01-28-2010 [facility] [place] RADIOLOGY 36924 REFLUX 12-09-2009 [facility] ESOPHAGITIS [facility] W[facility]ER 68317 ATROPHIC 12-09-2009 PATHOLOGY & GASTRITIS CYTOLOGY WITHOUT LAB MENTION OF HEMORRHAGE 30623 UNS 12-09-2009 [facility] GASTRIT[facility] ANESTHESIA ASTRODUODIT GROUP PSC IS W/O MENTION HEMORR 5533 DIAPHRAGMAT 12-09-2009 [facility] MENTION HOSPITAL OBSTRUCTION /GANGREN 83771 CHEST PAIN 12-09-2009 [facility] UNSPECIFIED SRIDHAR ROSA 46975 OTHER CHEST 12-09-2009 [facility] 95323 NAUSEA 12-09-2009 [facility] 59298 ABDOMINAL 12-09-2009 [facility] PA[facility], NKLIN, EPIGASTRIC ROSA 98082 ESOPHAGEAL 11-28-2009 [facility] PROF SERV 38540 ABDOMINAL 11-28-2009 [facility] 12674 UNSPECIFIED 10-06-2009 [facility] ARTHROPATHY [facility] [place] 16635 OSTEOARTHRO 06-13-2009 [facility] [place] S UNSPEC RADIOLOGY WHETHER GEN/LOC UNSPEC SITE 02136 DIARRHEA 05-09-2009 [facility] 8793 OPEN WOUND 05-09-2009 [facility] W[facility] ANTERIOR COMPLICATED 9597 INJURY 04-22-2009 [facility] [place] OTHER&UNSPE RADIOLOGY CIFIED KNEE LEG ANKLE&FOOT 7078 CHRONIC 04-03-2009 [facility] MEDICAL ULCER OF OTHER SPECIFIED SITE 6822 CELLULITIS 04-02-2009 ADDISON, AND ABSCESS ALACIA L OF TRUNK 92097 OTHER 03-01-2009 [facility] CARDIAC [facility] DYSRHYTHMIA S 7851 PALPITATION 03-01-2009 [facility] 5718 OTHER 02-26-2009 [facility] C LIVER DISEASE 8795 OPEN WOUND 02-26-2009 ADDISON, OF ALACIA L ABDOMINAL WALL LATERAL COMPLICATED V762 SCREENING 02-05-2009 PATHOLOGY & FOR CYTOLOGY MALIGNANT LAB NEOPLASM OF THE CERVIX 8794 OPEN WOUND 12-25-2008 LABONE OF ABD WALL [place] INC LATERAL WITHOUT MENTION COMP 77777 CHRONIC 11-20-2008 ADVANCED PAIN DUE TO PAIN TRAUMA MEDICIINE PSC 7246 DISORDERS 11-20-2008 ADVANCED OF SACRUM PAIN MEDICIINE PSC 7265 ENTHESOPATH 11-20-2008 ADVANCED Y OF HIP PAIN REGION MEDICIINE PSC 20884 PAIN IN 10-30-2008 [facility] [place] JOINT, RADIOLOGY SHOULDER REGION 3550 LESION OF 09-13-2008 PROFESSIONA SCIATIC L [facility] PSC 45112 DISPLCMT 08-20-2008 [facility] [place] LUMBAR RADIOLOGY 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 7213 LUMBOSACRAL 05-03-2008 LESLEY 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 6927 [facility] 03-20-2008 [facility] DERMATITIS& [facility] OTH ECZEMA INC DUE SOLAR RADIATION 82299 OTHER 03-15-2008 HARRIES, AMYLOIDOSIS LESLEY Abdul 3384 CHRONIC 03-15-2008 HARRIES, PAIN LESLEY Abdul SYNDROME 7292 UNSPECIFIED 02-12-2008 [facility] NEURITIS AND RADICULITIS 7226 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-2007 [facility] INTERVERTEB RAL DISC SITE UNSPEC 74067 SPONDYLOSIS 11-21-2007 [facility] SITE W/O MENTION MYELOPATHY Immunization Name Date Rout CVX Reac Dose [...] HOSP HOSP YRS/ INC INC > IM Procedures Procedure DOS Code Location Performer Comment PROF SVBURKE 27892 ALLERGY ZIEGLER ALLG 7 PARTNERS IMMNTX X OF [place] W/PRV CO ALLGIC XTRCS NJXS COMPREHEN 38522 [place] JUDY SIVE 7 [facility] PANEL COLLECTIO 38882 [facility] N VENOUS 7 [facility] VENIPUNCT URE THROMBOPL 00339 [facility] ASTIN 7 [facility] PARTIAL PLASMA/WH OLE BLOOD CUL 20267 [facility] PRSMPTV 7 [facility] ORGANISM SCRN W/COLONY ESTIMJ PROTHROMB 48078 [facility] IN TIME [address] [place] [address] [place] [address] [facility] THYROID [address] [place] [address] NG HORMONE TSH LIPID 68856 [facility] PANEL [address] [place] [address] ECG 97675 [facility] ROUTINE [address] [place] [address] HOSPITAL W/LEAST 12 LDS TRCG ONLY W/O I&R URNLS DIP [address] [facility] HOSPITAL LET REAGENT AUTO MICROSCOP Y HEMOGLOBI 64452 [facility] N [address] [place] [address] HOSPITAL STEFANO A1C BLOOD 56984 [facility] COUNT [address] [place] [address] HOSPITAL AUTOMATED PROF [facility] 47979 ALLERGY ZIEGLER ALLG 7 PARTNERS IMMNTX X OF [place] W/PRV CO ALLGIC XTRCS NJXS CT THORAX 73430 [facility] [place] GARRETT 7 RADIOLOGY W/CONTRAS T MATERIAL RADIOLOGI 47859 [facility] MARTI C 7 EXAMINATI ORTHOPAED ON KNEE 3 ICS PSC VIEWS COLLECTIO 42693 [place] N VENOUS 7 [facility] VENIPUNCT URE BASIC 16773 [facility] METABOLIC [address] [place] [address] [place] [address] JUDY KIM HPYLORI 7 [facility] [place] [address] JUDY KIM DIFFUSING [address] [place] [address] HOSPITAL PLETHYSMO 16655 JUD[facility] GRAPHY [address] [place] [address] HOSPITAL VOLUMES W/WO AIRWAY RESIST BRNCDILAT 03640 JUDY KIM RSPSE [address] [place] [address] PRE&POST- BRNCDILAT ADMN SPMTRY 84523 YAMIL TAYLOR W/VC 7 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 Y CLARA PRA W/WO MXML VOL VNTJ COLLECTIO 24954 YAMIL Laguerre VENOUS [address] [facility] MEDICAL VENIPUNCT [facility] URE BLOOD 01270 YAMIL LOBO COUNT 7 [facility]AL [facility] MEDICAL AUTO&AUTO CENTE CENTE DIFRNTL WBC PROF [facility] 43077 ALLERGY ZIEGLER ALLG 7 PARTNERS IMMNTX X OF H[place] W/PRV CO ALLGIC XTRCS NJXS ANTIBODY 89878 YAMIL LOBO BLASTOMYC [address] [facility] MEDICAL CENTE CENTE ANTIBODY 62327 YAMIL LOBO ASPERGILL 7 REGIONAL [facility] CENTE CENTE ANTIBODY 49012 YAMIL LOBO HISTOPLAS 7 REGIONAL [facility] MEDICAL CENTE CENTE PREPJ& 12288 ALLERGY ZIEGLER ALLERGEN 7 PARTNERS IMMUNOTHE OF [place]ARD RAPY CO 1/CARD SORTER ANTIGEN PROF SVCS 91795 ALLERGY ZIEGLER ALLG 7 PARTNERS IMMNTX X OF [place] W/[place] [address] [place] [facility] SURG [address] [place] [address] GROSS&MIKAL ROSCOPIC EXAM IMHISTOCH 16475 [facility] KIM EM/CYTCHM [address] [place] [address] ANTIBODY STAIN PROCEDURE PRESSURIZ 61572 JUDY KIM ED/NONPRE [address] [place] [address] INHALATIO N TREATMENT EGD 03869 [facility] TRANSORAL [address] [place] [address] SINGLE/MU LTIPLE POLYSOM 65140 GRAEME AMIN AMIN 6/>YRS 7 MD SLEEP 4/> CONSULTIN ADDL G SRV [place] ATTND POLYSOM 80247 [facility] 6/>YRS 7 [facility] SLEEP 4/> HOSPITAL HOSPITAL ADDL [place] ATTND INJECTION J1030 [facility] KIDD 7 METHYLPRE ORTHOPAED DNISOLONE ICS PSC ACETATE 40 MG ARTHROCEN 39107 [facility] KIDD TESIS 7 ASPIR&/IN ORTHOPAED J MAJOR ICS PSC JT/BURSA W/O US RADIOLOGI 15502 [facility] KIDD C 7 EXAMINATI ORTHOPAED ON KNEE 3 ICS PSC VIEWS PROF SVCS 36554 ALLERGY ZIEGLER ALLG 7 PARTNERS IMMNTX X OF [place] W/PRV CO ALLGIC XTRCS NJXS RADIOLOGI 15234 [facility] EXAM [address] VIEWS FRONTAL&L ATERAL IAADIADOO 80781 [facility] 7 [facility] HOSPITAL PRESSURIZ 55086 [facility] ED/NONPRE 7 [facility] INHALATIO N TREATMENT BASIC 24609 [facility] METABOLIC 7 [facility] PANEL INC INC CALCIUM TOTAL COLLECTIO 75217 [facility] N VENOUS 7 [facility] BLOOD INC INC VENIPUNCT URE COLLECTIO 07932 [facility] N VENOUS 7 [facility] BLOOD [facility] VENIPUNCT URE LOCM Q9967 [facility] 300-399 7 [facility] MG/ML [facility] IODINE CONCENTRA TION PER ML INJECTION J3010 [facility] FENTANYL 7 [facility] CITRATE [facility] 0.1 MG INTRDUCR/ C1894 [facility] SHEATH 7 [facility] NOT GUID [facility] INTRACARD EP NON-LASR HEMOGLOBI 47080 [facility] N 7 [facility] GLYCOSYLA [facility] STEFANO A1C INJECTION J2250 [facility] 7 [facility] MIDAZOLAM [facility] HCL PER 1 MG CATH PLMT 84710 [facility] THOMAS Trimble HRT & 7 [employer] ARTS MEDICAL W/NJX & GROUP ANGIO IMG S&I LIPID 60554 [facility] PANEL 7 [facility] GUIDE C1769 [facility] WIRE 7 [facility] INJECTION J1644 C[facility] HEPARIN 7 [facility] SODIUM [facility] PER 1000 UNITS COMPREHEN 40497 [facility] SIVE 7 [facility] METABOLIC [facility] PANEL FIBRIN 89511 [facility] DGRADJ 7 [facility] D-DIMER QUANTITAT JAG CREATINE 61071 [facility] KINASE MB 7 [facility] HOSPITAL ONLY BASIC 71097 [facility] METABOLIC [address] [place] [address] [place] [address] [facility] TROPONIN [address] [place] [address] HOSPITAL JAG BLOOD 91567 [facility] COUNT [address] [place] [address] HOSPITAL AUTO&AUTO DIFRNTL WBC RADIOLOGI 89597 [facility] [place] C 7 RADIOLOGY EXAMINATI ON CHEST SINGLE VIEW FRONTAL ECG 19974 [facility] ROUTINE [address] [place] [address] HOSPITAL W/LEAST 12 LDS TRCG ONLY W/O I&R INJECTION J1040 [facility] VAN 7 METHYLPRE ORTHOPAED DNISOLONE ICS PSC ACETATE 80 MG NJX 03453 [facility] VAN DX/THER 7 SBST ORTHOPAED INTRLMNR ICS PSC LMBR/SAC W/IMG GDN LOCM Q9965 [facility] VAN 100-199 7 MG/ML ORTHOPAED IODINE ICS PSC CONCENTRA TION PER ML PROF SVCS 36065 ALLERGY ZIEGLER ALLG 7 PARTNERS IMMNTX X OF [place] W/PRV CO ALLGIC XTRCS NJXS CV STRS 93666 [facility] AMIN WAESPE TST 7 MD XERS&/OR CONSULTIN RX CONT G SRV ECG I&R ONLY NONINVASI 44882 [facility] AMIN AMIN VE 7 EAR/PULSE CONSULTIN OXIMETRY G SRV OVERNIGHT MONITOR TECHNETIU A9500 JUDY KIM M TC-99M 7 [facility] DX PER STUDY DOSE MYOCARDIA 20024 [facility] AMIN WAESPE L SPECT 7 MULTIPLE CONSULTIN STUDIES G SRV CV STRS 56899 JUDY KIM TST 7 [facility] XERS&/OR [facility] RX CONT ECG TRCG ONLY ECHO 00277 GRAEME AMIN AMIN TTHRC R-T 7 2D CONSULTIN W/WOM-MOD G SRV E COMPL SPEC&COLR D LIPID 93929 [facility] PANEL 7 [facility] INC INC POTASSIUM 78291 [facility] SERUM 7 [facility] HOSP PLASMA/[place] [address] [facility] THYROID 7 [facility] HOSP STIMULATI INC INC NG HORMONE TSH COLLECTIO 23698 [facility] N VENOUS 7 [facility] BLOOD INC INC VENIPUNCT URE RADIOLOGI 63237 [facility] [place] C EXAM 7 RADIOLOGY CHEST 2 VIEWS FRONTAL&L ATERAL COMPREHEN 40714 JUDY KIM SIVE [address] [place] [address] PANEL ECG 12344 JUDY KIM ROUTINE 7 [facility] W/LEAST 12 LDS TRCG ONLY W/O I&R THER 17969 JUDY RODGERS JR PROPH/DX 7 [facility] PUSH SINGLE/1S T SBST/DRUG BLOOD 85778 JUDY KIM COUNT [address] [facility] AUTO&[place] [address] JUDY KIM TROPONIN 7 [place] JAG INJECTION [address] [facility] RE[facility]AN 7 METHYLPRE ORTHOPAED DNISOLONE ICS PSC ACETATE 80 MG NJX 60336 [facility]THER 7 SBST ORTHOPAED INTRLMNR ICS PSC LMBR/SAC W/IMG GDN PROF SVCS 07455 ALLERGY ZIEGLER ALLG 7 PARTNERS IMMNTX X OF [place] W/PRV CO ALLGIC XTRCS NJXS URNLS DIP 98974 BROCK MAGED 7 AND STICK/TAB MAGED, LET RGNT PSC NON-AUTO W/O MICRSCP PREPJ& 59166 ALLERGY ZIEGLER ALLERGEN 7 PARTNERS IMMUNOTHE OF [place] RAPY CO 1/[place] [address] ALLERGY ZIEGLER ALLG 7 PARTNERS IMMNTX X OF [place] W/[place] [address] ALLERGY ZIEGLER ALLG 7 PARTNERS IMMNTX X OF [place] W/PRV CO ALLGIC XTRCS NJXS RADIOLOGI 78924 [facility] MARTI C 7 EXAMINATI ORTHOPAED ON KNEE ICS PSC 1/2 VIEWS ECG 33745 [facility] ROUTINE 6 [facility] ECG INC INC W/LEAST 12 LDS TRCG ONLY W/O I&R ECG 60552 [facility] ADAM JR ROUTINE [address] [facility] W/LEAST P 12 LDS I&R ONLY PRESSURIZ 68641 [facility] ED/NONPRE 6 [facility] SSURIZED INC INC INHALATIO N TREATMENT SPMTRY 84110 ALLERGY ZIEGLER MAR W/VC 6 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 [place] Y CLARA CO W/WO MXML VOL VNTJ NITRIC 26624 ALLERGY ZIEGLER MAR OXIDE 6 [facility]ERS [facility] [place] GAS CO DETERMINA TION PROF [facility] 44285 ALLERGY ZIEGLER MAR ALLG 6 PARTNERS IMMNTX X OF [place] W/PRV CO ALLGIC XTRCS NJXS PROF [facility] 68844 ALLERGY ZIEGLER MAR ALLG 6 PARTNERS IMMNTX X OF [place] W/PRV CO ALLGIC XTRCS NJXS PROF [facility] 18749 ALLERGY ZIEGLER MAR ALLG 6 PARTNERS IMMNTX X OF [place] W/PRV CO ALLGIC XTRCS NJXS PREPJ& 40237 ALLERGY ZIEGLER MAR ALLERGEN 6 PARTNERS IMMUNOTHE OF [place] RAPY CO 1/CARD SORTER ANTIGEN 3D 28178 [place] KLARISSA RENDERING 6 MEDICAL W/INTERP IMAGING & ASS POSTPROCE SS SUPERVISI ON MRI 53325 [place] KLARISSA SPINAL 6 MEDICAL CANAL IMAGING LUMBAR ASS W/O CONTRAST MATERIAL PROF [facility] 42955 ALLERGY ZIEGLER MAR ALLG 6 PARTNERS IMMNTX X OF [place] W/PRV CO ALLGIC XTRCS NJXS PROF [facility] 52501 ALLERGY ZIEGLER MAR ALLG 6 PARTNERS IMMNTX X OF [place] W/PRV CO ALLGIC XTRCS NJXS RADEX 05686 BLUELOIS MARTI SPINE 6 GRE LUMBOSACR ORTHOPAED AL 2/3 ICS PSC VIEWS RADIOLOGI 12356 [facility] MARTI C 6 GRE EXAMINATI ORTHOPAED ON KNEE ICS PSC 1/2 VIEWS PROF [facility] 80691 ALLERGY ZIEGLER MAR ALLG 6 PARTNERS IMMNTX X OF [place] W/PRV CO ALLGIC XTRCS NJXS OPHTH 26745 MIAN BRYANT [facility] 6 VISION XM&EVAL CENTER COMPRHNSV ESTAB PT 1/> DETERMINA 89486 MIAN BRYANT TION 6 VISION REFRACTIV CENTER E STATE PROF [facility] 61844 ALLERGY ZIEGLER MAR ALLG 6 PARTNERS IMMNTX X OF [place] W/PRV CO ALLGIC XTRCS NJXS PROF [facility] 08636 ALLERGY ZIEGLER MAR ALLG 6 PARTNERS IMMNTX X OF [place] W/PRV CO ALLGIC XTRCS NJXS SPMTRY 87636 ALLERGY ZIEGLER MAR W/VC 6 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 [place] Y CLARA CO W/WO MXML VOL VNTJ NITRIC 55343 ALLERGY ZIEGLER MAR OXIDE 6 PARTNERS OF [place] GAS CO DETERMINA TION DEMO&/GERMAINE 94981 ALLERGY ALLERGY L OF PT 6 PARTNERS PARTNERS UTILIZ OF [place] OF [place] AERSL CO CO GEN/NEB/I NHLR/IP PROF [facility] 50704 ALLERGY ZIEGLER MAR ALLG 6 PARTNERS IMMNTX X OF [place] W/PRV CO ALLGIC XTRCS NJXS PROF [facility] 11606 ALLERGY ZIEGLER MAR ALLG 6 PARTNERS IMMNTX X OF [place] W/PRV CO ALLGIC XTRCS NJXS PROF [facility] 74758 ALLERGY ZIEGLER MAR ALLG 6 PARTNERS IMMNTX X OF [place] W/PRV CO ALLGIC XTRCS NJXS RADIOLOGI 19336 BLUELOIS MOREIRAGELO C 6 GRE EXAMINATI ORTHOPAED ON KNEE ICS PSC 1/2 VIEWS PROF [facility] 04214 ALLERGY ZIEGLER MAR ALLG 6 PARTNERS IMMNTX X OF [place] W/PRV CO ALLGIC XTRCS NJXS PROF [facility] 05652 ALLERGY ZIEGLER MAR ALLG 6 PARTNERS IMMNTX X OF [place] W/PRV CO ALLGIC XTRCS NJXS PROF [facility] 66411 ALLERGY ZIEGLER MAR ALLG 6 PARTNERS IMMNTX X OF [place] W/PRV CO ALLGIC XTRCS NJXS SCREENING G0202 [facility] 6 MEDICAL LILLIE MAMMOGRAP IMAGING HY BENEDICT ASS INCL CAD WHEN PERFORMD COMPUTER- 02276 [facility] AIDED 6 MEDICAL LILLIE DETECTION IMAGING ASS SCREENING MAMMOGRAP HY THERAPEUT 37499 [facility] BORJAS IC PX 1/> 6 [facility] AREAS INC INC EACH 15 MIN EXERCISES PROF [facility] 77439 ALLERGY ZIEGLER MAR ALLG 6 PARTNERS IMMNTX X OF [place] W/PRV CO ALLGIC XTRCS NJXS THERAPEUT 36272 INDIO BORJAS IC PX 1/> 6 [facility] AREAS INC INC EACH 15 MIN EXERCISES THERAPEUT 51027 INDIO HUNTERON IC PX 1/> 6 [facility] AREAS INC INC EACH 15 MIN EXERCISES IADNA 55992 BIO BIO TRICHOMON 6 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 VAGINALIS IES IES AMPLIFIED PROBE TECH CYTP C/V 53366 BIO BIO AUTO THIN 6 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 PREPJ SCR IES IES MNL RESCR PHYS URINLS 20060 [facility] DIP 6 PHYSICIAN PHYSICIAN STICK/TAB S GROUP S GROUP LET REAGNT NON-AUTO MICRSCPY ANNUAL G0439 [facility] 6 PHYSICIAN SONJA VST; S GROUP PERSONALI ZED PPS SUBSQT VST THERAPEUT 84983 INDIO INDIO IC PX 1/> 6 [facility] H[facility] AREAS INC [facility] EACH 15 MIN EXERCISES PROF [facility] 39534 ALLERGY ZIEGLER MAR ALLG 6 PARTNERS IMMNTX X OF [place] W/PRV CO ALLGIC XTRCS NJXS THERAPEUT 82400 INDIO HUNTERON IC PX 1/> 6 [facility] AREAS INC INC EACH 15 MIN EXERCISES THERAPEUT 45629 INDIO INDIO IC PX 1/> 6 [facility] AREAS INC INC EACH 15 MIN EXERCISES THERAPEUT 71500 INDIO INDIO IC PX 1/> 6 [facility] AREAS INC INC EACH 15 MIN EXERCISES PREPJ& 41181 ALLERGY ZIEGLER MAR ALLERGEN 6 PARTNERS IMMUNOTHE OF [place] RAPY CO 1/CARD SORTER ANTIGEN THERAPEUT 69604 INDIO INDIO IC PX 1/> 6 [facility] AREAS INC INC EACH 15 MIN EXERCISES PHYSICAL 72617 [facility] THERAPY 6 [facility] EVALUATIO INC INC N 45560 [facility] SCO GUIDANCE 6 ANESTHESI NEEDLE A PLACEMENT ASSOCIAT IMG S&I ARTHRP 77880 [facility] MARTI KNEE 6 GRE CONDYLE&P ORTHOPAED LATEAU ICS PSC MEDIAL/LA T CMPRT [place] E0135 [email or web address] FOLDING 6 ADJUSTABL E OR FIXED HEIGHT INJECTION 67347 [facility] [facility] SCO 6 ANESTHESI ANESTHETI A C AGENT ASSOCIAT FEMORAL NERVE SINGLE PROF [facility] 25608 ALLERGY ZIEGLER MAR ALLG 6 PARTNERS IMMNTX X OF [place] W/PRV CO ALLGIC XTRCS NJXS COLLECTIO 33266 [facility] N VENOUS 6 DIAGNOSTI DIAGNOSTI BLOOD CS CS VENIPUNCT [place] [address] [facility] THYROID 6 DIAGNOSTI DIAGNOSTI STIMULATI CS CS NG INCORPORA INCORPORA HORMONE T T TSH LIPID 03503 [facility] PANEL 6 DIAGNOSTI DIAGNOSTI CS CS INCORPORA INCORPORA T T ANNUAL G0439 BROCK LYNNE WELLNESS 6 AND JANE VST; SONY LYNNEI PSC ZED PPS SUBSQT VST ECG 71565 JUDY KIM ROUTINE 6 [facility] W/LEAST 12 LDS TRCG ONLY W/O I&R URNLS DIP 84135 JUDY KIM [address] [place] [address] LET REAGENT AUTO MICROSCOP Y HEMOGLOBI 34407 JUDY KIM N [address] [place] [address] STEFANO A1C BLOOD 68859 JUDY KIM COUNT [address] [place] [address] AUTO&AUTO DIFRNTL WBC BASIC 48416 JUDY KIM METABOLIC [address] [place] [address] CALCIUM TOTAL ECG 04175 GRAEME AMIN AMIN GRAEME ROUTINE 6 MD ECG CONSULTIN W/LEAST G SRV 12 LDS I&R ONLY PROTHROMB 22734 JUDY KIM IN TIME [address] [place] [address] CUL 01365 JUDY KIM PRSMPTV [address] [place] [address] HOSPITAL ORGANISM SCRN W/COLONY ESTIMJ RADIOLOGI 21305 [facility] [place] NIKKI C EXAM 6 RADIOLOGY RHO CHEST 2 VIEWS FRONTAL&L ATERAL COLLECTIO 86945 JUDY KIM N VENOUS [address] [place] [address] VENIPUNCT URE THROMBOPL 50128 JUDY KIM ASTIN [address] [place] [address] PARTIAL PLASMA/WH OLE BLOOD PROF SVCS 36562 ALLERGY ZIEGLER MAR ALLG 6 PARTNERS IMMNTX X OF [place] W/PRV CO ALLGIC XTRCS NJXS PROF SVCS 08299 ALLERGY ZIEGLER MAR ALLG 6 PARTNERS IMMNTX X OF [place] W/PRV CO ALLGIC XTRCS NJXS PROF SVCS 36316 ALLERGY ZIEGLER MAR ALLG 6 PARTNERS IMMNTX X OF [place] W/PRV CO ALLGIC XTRCS NJXS PROF SVCS 80543 ALLERGY ZIEGLER MAR ALLG 6 PARTNERS IMMNTX X OF [place] W/PRV CO ALLGIC XTRCS NJXS RADIOLOGI 15950 CHASTITY Suárez 6 SOPHIE EXAMINATI ORTHOPAED ON KNEE 3 [place] [address] ALLERGY ZIEGLER MAR ALLG 6 PARTNERS IMMNTX X OF [place] W/PRV CO ALLGIC XTRCS NJXS INCISION 33473 INDIO INDIO & REMOVAL 6 [facility] FOREIGN INC INC BODY SUBQ TISS COMPL PREPJ& 41749 ALLERGY ZIEGLER MAR ALLERGEN 6 PARTNERS IMMUNOTHE OF [place] RAPY CO 1/[place] [address] ALLERGY ZIEGLER MAR ALLG 6 PARTNERS IMMNTX X OF [place] W/[place] [address] ALLERGY ZIEGLER MAR ALLG 6 PARTNERS IMMNTX X OF [place] W/[place] [address] ALLERGY ZIEGLER MAR ALLG 6 PARTNERS IMMNTX X OF [place] W/[place] [address] ALLERGY ZIEGLER MAR ALLG 6 PARTNERS IMMNTX X OF [place] W/[place] [address] ALLERGY ZIEGLER MAR ALLG 6 PARTNERS IMMNTX X OF [place] W/PRV CO ALLGIC XTRCS NJXS ARTHROCEN 67365 [facility] TESIS 6 [place] ASPIR&/IN ORTHOPAED J [facility] JT/BURSA W/O US HYALURONA [id number] [facility] [place] N/DERIV 6 [place] ORTHOVISC ORTHOPA[place] [address] ALLERGY ZIEGLER MAR ALLG 6 PARTNERS IMMNTX X OF [place] W/PRV CO ALLGIC XTRCS NJXS PROF SVCS 24776 ALLERGY ZIEGLER MAR ALLG 6 PARTNERS IMMNTX X OF [place] W/PRV CO ALLGIC XTRCS NJXS SPMTRY 56402 ALLERGY ZIEGLER MAR W/VC 6 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 [place] Y CLARA CO W/WO MXML VOL VNTJ NITRIC 34519 ALLERGY ZIEGLER MAR OXIDE 6 PARTNERS OF [facility] GAS CO DETERMINA TION PROF SVCS 41321 ALLERGY ZIEGLER MAR ALLG 6 PARTNERS IMMNTX X OF [place] W/PRV CO ALLGIC XTRCS NJXS PROF SVCS 61616 ALLERGY ZIEGLER MAR ALLG 6 PARTNERS IMMNTX X OF [place] W/PRV CO ALLGIC XTRCS NJXS PROF SVCS 02164 ALLERGY ZIEGLER MAR ALLG 6 PARTNERS IMMNTX X OF [place] W/PRV CO ALLGIC XTRCS NJXS PROF SVCS 20170 ALLERGY ZIEGLER MAR ALLG 6 PARTNERS IMMNTX X OF [place] W/PRV CO ALLGIC XTRCS NJXS PROF SVCS 76733 ALLERGY ZIEGLER MAR ALLG 6 PARTNERS IMMNTX X OF [place] W/PRV CO ALLGIC XTRCS NJXS PROF SVCS 85412 ALLERGY ZIEGLER MAR ALLG 6 PARTNERS IMMNTX X OF [place] W/PRV CO ALLGIC XTRCS NJXS PREPJ& 75643 ALLERGY ZIEGLER MAR ALLERGEN 6 PARTNERS IMMUNOTHE OF [place] RAPY CO 1/CARD SORTER ANTIGEN PROF SVCS 71690 ALLERGY ZIEGLER MAR ALLG 6 PARTNERS IMMNTX X OF [place] W/PRV CO ALLGIC XTRCS NJXS PROF SVCS 77115 ALLERGY ZIEGLER MAR ALLG 6 PARTNERS IMMNTX X OF [place] W/PRV CO ALLGIC XTRCS NJXS PROF SVCS 18855 ALLERGY ZIEGLER MAR ALLG 6 PARTNERS IMMNTX X OF [place] W/PRV CO ALLGIC XTRCS NJXS PROF SVCS 84591 ALLERGY ZIEGLER MAR ALLG 6 PARTNERS IMMNTX X OF [place] W/PRV CO ALLGIC XTRCS NJXS PROF SVCS 34004 ALLERGY ZIEGLER MAR ALLG 5 PARTNERS IMMNTX X OF [place] W/PRV CO ALLGIC XTRCS NJXS THERAPEUT 58666 [facility] IC PX 1/> 5 [facility] ARE[facility] INC EACH 15 MIN EXERCISES APPLICATI 90199 [facility] ON 5 [facility] MODALITY INC INC 1/> AREAS HOT/COLD PACKS E-STIM [id number] [facility] 1/> AREAS 5 [facility] OTH THAN INC INC WND CARE PART TX PLAN E-STIM [id number] [facility] 1/> AREAS 5 [facility] OTH THAN INC INC WND CARE PART TX PLAN APPL 08044 [facility] MODALITY 5 [facility] 1/> AREAS INC INC VASOPNEUM ATIC DEVICES PHYSICAL 79132 [facility] THERAPY 5 [facility] EVALUATIO INC INC N THERAPEUT 39713 [facility] IC PX 1/> 5 [facility] INC INC EACH 15 MIN EXERCISES DEMO&/GERMAINE 75138 ALLERGY ZIEGLER MAR L OF PT 5 PARTNERS UTILIZ OF [place] AERSL CO GEN/NEB/I NHLR/IP NITRIC 55881 ALLERGY ZIEGLER MAR OXIDE 5 PARTNERS OF [place] GAS CO DETERMINA TION SPMTRY 47968 ALLERGY ZIEGLER MAR W/VC 5 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 [place] Y [place] CO W/WO MXML VOL VNTJ PROF SVCS 70192 ALLERGY ZIEGLER MAR ALLG 5 PARTNERS IMMNTX X OF [place] W/PRV CO ALLGIC XTRCS NJXS PROF SVCS 60138 ALLERGY ZIEGLER MAR ALLG 5 PARTNERS IMMNTX X OF [place] W/PRV CO ALLGIC XTRCS NJXS PROF SVCS 85534 ALLERGY ZIEGLER MAR ALLG 5 PARTNERS IMMNTX X OF [place] W/PRV CO ALLGIC XTRCS NJXS PROF SVCS 04862 ALLERGY ZIEGLER MAR ALLG 5 PARTNERS IMMNTX X OF [place] W/PRV CO ALLGIC XTRCS NJXS PROF SVCS 18627 ALLERGY ZIEGLER MAR ALLG 5 PARTNERS IMMNTX X OF [place] W/PRV CO ALLGIC XTRCS NJXS PROF SVCS 37671 ALLERGY ZIEGLER MAR ALLG 5 PARTNERS IMMNTX X OF [place] W/PRV CO ALLGIC XTRCS NJXS ANES 47856 [facility] BYRNE OPEN/SURG 5 ANESTHESI ROSALES A GROUP ARTHROSCO PS PIC PROC KNEE JOINT NOS ARTHRS 31587 [facility] KNE SURG 5 [place] W/MENISCE ORTHOPAED CTOMY ICS PLC MED/LAT W/SHVG PROF SVCS 15936 ALLERGY ZIEGLER MAR ALLG 5 PARTNERS IMMNTX X OF [place] W/PRV CO ALLGIC XTRCS NJXS PROF SVCS 48307 ALLERGY ZIEGLER MAR ALLG 5 PARTNERS IMMNTX X OF [place] W/PRV CO ALLGIC XTRCS NJXS RADIOLOGI 69392 CNTRL [place] NIKKI C EXAM 5 RADIOLOGY RHO CHEST 2 VIEWS FRONTAL&L ATERAL COLLECTIO 04371 [facility] N VENOUS 5 N N BLOOD COMMUNTIY COMMUNTIY VENIPUNCT HOSPITA HOSPITA URE BASIC 23701 [facility] METABOLIC 5 N N PANEL COMMUNTIY COMMUNTIY CALCIUM HOSPITA HOSPITA TOTAL ECG 25044 [facility] ROUTINE 5 N N ECG COMMUNTIY COMMUNTIY W/LEAST HOSPITA HOSPITA 12 LDS TRCG ONLY W/O I&R BLOOD 65667 [facility] COUNT 5 N N COMPLETE COMMUNTIY COMMUNTIY AUTOMATED HOSPITA HOSPITA PROF SVCS 08284 ALLERGY ZIEGLER MAR ALLG 5 PARTNERS IMMNTX X OF [place] W/PRV CO ALLGIC XTRCS NJXS PROF SVCS 67327 ALLERGY ZIEGLER MAR ALLG 5 PARTNERS IMMNTX X OF [place] W/PRV CO ALLGIC XTRCS NJXS PROF SVCS 47171 ALLERGY ZIEGLER MAR ALLG 5 PARTNERS IMMNTX X OF [place] W/PRV CO ALLGIC XTRCS NJXS PROF SVCS 10399 ALLERGY ZIEGLER MAR ALLG 5 PARTNERS IMMNTX X OF [place] W/PRV CO ALLGIC XTRCS NJXS PROF SVCS 97898 ALLERGY ZIEGLER MAR ALLG 5 PARTNERS IMMNTX X OF [place] W/PRV CO [place]GIC XTRCS NJ[place] ANY [address] [facility] [place] JT LOWER 5 [place] EXTREM ORTHOPAED W/O ICS PLC CONTRAST MATRL PROF SVCS 45364 ALLERGY ZIEGLER MAR ALLG 5 PARTNERS IMMNTX X OF [place] W/PRV CO ALLGIC XTRCS NJXS PROF SVCS 10908 ALLERGY ZIEGLER MAR ALLG 5 PARTNERS IMMNTX X OF [place] W/PRV CO ALLGIC XTRCS NJXS PROF SVCS 20846 ALLERGY ZIEGLER MAR ALLG 5 PARTNERS IMMNTX X OF [place] W/PRV CO ALLGIC XTRCS NJXS PROF SVCS 46107 ALLERGY ZIEGLER MAR ALLG 5 PARTNERS IMMNTX X OF [place] W/PRV CO ALLGIC XTRCS NJXS INJECTION J1100 BROCK MAGED 5 AND JANE DEXAMETHO MAGED, SONE PSC SODIUM PHOSPHATE 1 MG INJECTION J0696 BROCK MAGED 5 AND JANE CEFTRIAXO MAGED, NE SODIUM PSC PER 250 MG PROF SVCS 59960 ALLERGY ZIEGLER MAR ALLG 5 PARTNERS IMMNTX X OF [place] W/PRV CO ALLGIC XTRCS NJXS PROF SVCS 69325 ALLERGY ZIEGLER MAR ALLG 5 PARTNERS IMMNTX X OF [place] W/PRV CO ALLGIC XTRCS NJXS PROF SVCS 37469 ALLERGY ZIEGLER MAR ALLG 5 PARTNERS IMMNTX X OF [place] W/PRV CO ALLGIC XTRCS NJXS PROF SVCS 31952 ALLERGY ZIEGLER MAR ALLG 5 PARTNERS IMMNTX X OF [place] W/PRV CO ALLGIC XTRCS NJXS PROF SVCS 53950 ALLERGY ZIEGLER MAR ALLG 5 PARTNERS IMMNTX X OF [place] W/PRV CO ALLGIC XTRCS NJXS PROF SVCS 76711 ALLERGY ZIEGLER MAR ALLG 5 PARTNERS IMMNTX X OF [place] W/PRV CO ALLGIC XTRCS NJXS PROF SVCS 97400 ALLERGY ZIEGLER MAR ALLG 5 PARTNERS IMMNTX X OF [place] W/PRV CO ALLGIC XTRCS NJXS PROF SVCS 39758 ALLERGY ZIEGLER MAR ALLG 5 PARTNERS IMMNTX X OF [place] W/PRV CO ALLGIC XTRCS NJXS PREPJ& 66339 ALLERGY ZIEGLER MAR ALLERGEN 5 PARTNERS IMMUNOTHE OF [place] RAPY CO 1/CARD SORTER ANTIGEN PERCUTANE 61984 ALLERGY ZIEGLER MAR OUS TESTS 5 PARTNERS OF [place] W/ALLERGE CO ABNER EXTRACTS INTRACUTA 92725 ALLERGY ALLERGY NEOUS 5 PARTNERS PARTNERS TESTS OF [place] OF [place] W/ALLERGE CO CO ABNER EXTRACTS PERCUTANE 59024 ALLERGY ZIEGLER MAR OUS TESTS 5 PARTNERS OF [place] W/ALLERGE CO ABNER EXTRACTS NITRIC 04863 ALLERGY ZIEGLER MAR OXIDE 5 PARTNERS OF [place] GAS CO DETERMINA TION SPMTRY 35817 ALLERGY ZIEGLER MAR W/VC 5 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 [place] Y CLARA CO W/WO MXML VOL VNTJ HYALURONA J7324 [place] [place] N/DERIV 5 [place] ORTHOVISC ORTHOPAED IA INJ ICS PLC PER DOSE ARTHROCEN 81566 [place] [place] TESIS 5 [place] ASPIR&/IN ORTHOPAED J MAJOR ICS PLC JT/BURSA W/O US ARTHROCEN 57597 [place] [place] TESIS 5 [place] ASPIR&/IN ORTHOPAED J MAJOR ICS PLC JT/BURSA W/O US HYALURONA J7324 [place] [place] N/DERIV 5 [place] ORTHOVISC ORTHOPAED IA INJ ICS PLC PER DOSE HYALURONA J7324 [place] [place] N/DERIV 5 [place] ORTHOVISC ORTHOPAED IA INJ ICS PLC PER DOSE ARTHROCEN 85976 [place] [place] TESIS 5 [place] ASPIR&/IN ORTHOPAED J MAJOR ICS PLC JT/BURSA W/O US SCREENING G0202 [facility] MAMMOGRAP INC INC HY BENEDICT INCL CAD WHEN PERFORMD 72402 [facility] AIDED 5 [facility] DETECTION INC INC SCREENING MAMMOGRAP HY URINLS 94444 CHARLES SOTO R DIP 5 DILMA PERERA MD STICK/TAB LET REAGNT NON-AUTO MICRSCPY ANNUAL G0439 CHARLES PERERA WELLNESS 5 DILMA CASILLAS VST; PERSONALI ZED PPS SUBSQT VST IADNA 13769 BIO BIO 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 [place] [address] [facility]IO BORJAS INFUSION 5 [facility] THERAPY/P INC INC ROPHYLAXI S /DX 1ST TO 1 HR GLUCOSE 37162 [facility] BODY 5 N N FLUID COMMUNTIY COMMUNTIY OTHER HOSPITA HOSPITA THAN BLOOD SPINAL 32190 [facility] [place] ELIU PUNCTURE 5 RADIOLOGY LUMBAR DIAGNOSTI C PROTEIN 96657 [facility] TOTAL 5 N N XCPT COMMUNTIY COMMUNTIY REFRACTOM HOSPITA HOSPITA ETRY OTH SRC FLUOR 11413 [facility] [place] ELIU NEEDLE/CA 5 RADIOLOGY TH SPINE/PAR ASPINAL DX/THER ADDON SMR PRIM 34150 [facility] SRC 5 N N GRAM/GIEM COMMUNTIY COMMUNTIY SA STAIN HOSPITA HOSPITA BCT FUNGI/JOSE L CUL BACT 90772 [facility] XCPT 5 N N URINE COMMUNTIY COMMUNTIY BLOOD/STO HOSPITA HOSPITA OL AEROBIC ISOL CYTP 37425 [facility] SLCTV 5 CLAIRE & ELIU CELL DUBILIER ENHANCEME NT INTERPJ XCPT C/V CELL 36673 [facility] COUNT 5 N N MISC BODY COMMUNTIY COMMUNTIY FLUIDS HOSPITA HOSPITA W/DIFFERE NTIAL COUNT RADIOLOGI 75940 [facility] C EXAM 5 N N BOTH COMMUNTIY COMMUNTIY KNEES HOSPITA HOSPITA STANDING ANTEROPOS T RADIOLOGI 41549 [facility] [place] C 5 RADIOLOGY EXAMINATI ON KNEE 3 VIEWS RADIOLOGI 18020 [facility] C 5 N N EXAMINATI COMMUNTIY COMMUNTIY ON KNEE HOSPITA HOSPITA 1/2 VIEWS E-STIM G0283 [facility]IO [facility]JAS 1/> AREAS 5 [facility] OTH THAN INC INC WND CARE PART TX PLAN APPLICATI 40986 [facility] ON 5 [facility] MODALITY INC INC 1/> AREAS HOT/COLD PACKS MANUAL 84539 [facility] THERAPY 5 [facility] TQS 1/> INC INC REGIONS EACH 15 MINUTES APPLICATI 68042 [facility] ON 5 [facility] MODALITY INC INC 1/> AREAS HOT/COLD PACKS E-STIM G0283 [facility]AS 1/> AREAS 5 [facility]OS[facility] OTH THAN INC INC WND CARE PART TX PLAN E-STIM G0283 [facility] BORJAS 1/> AREAS 5 [facility]OS[facility] OTH THAN INC INC WND CARE PART TX PLAN APPLICATI 74386 [facility] ON 5 [facility] MODALITY INC INC 1/> AREAS HOT/COLD PACKS MANUAL 29601 [facility] THERAPY 5 [facility] TQS 1/> INC INC REGIONS EACH 15 MINUTES MANUAL 07266 [facility] THERAPY 5 [facility] TQS 1/> INC INC REGIONS EACH 15 MINUTES APPLICATI 15065 [facility] ON 5 [facility] MODALITY INC INC 1/> AREAS HOT/COLD PACKS E-STIM G0283 [facility]IO [facility]ORJAS 1/> AREAS 5 [facility]OS[facility] OTH THAN INC INC WND CARE PART TX PLAN E-STIM G0283 [facility]IO BORJAS 1/> AREAS 5 [facility]OS[facility] OTH THAN INC INC WND CARE PART TX PLAN APPLICATI 76524 [facility]JAS ON 5 [facility] MODALITY INC INC 1/> AREAS HOT/COLD PACKS MANUAL 14499 [facility] THERAPY 5 [facility] TQS 1/> INC INC REGIONS EACH 15 MINUTES MANUAL 53033 [facility]AS THERAPY 5 [facility] TQS 1/> INC INC REGIONS EACH 15 MINUTES APPLICATI 46884 [facility]JAS ON 5 [facility] MODALITY INC INC 1/> AREAS HOT/COLD PACKS E-STIM G0283 INDIO BORJAS 1/> AREAS 5 [facility] OTH THAN INC INC WND CARE PART TX PLAN PHYSICAL 01239 [facility] B[facility]AS THERAPY 5 [facility] EVALUATIO INC INC N THERAPEUT 71583 [facility] BORJAS IC PX 1/> 5 [facility] AREAS INC INC EACH 15 MIN EXERCISES MRI BRAIN 62583 [facility] [place] RYNE BRAIN 5 RADIOLOGY III JAYESH STEM W/O CONTRAST MATERIAL KNEE L1845 ADVANCED ADVANCED ORTHOSIS 4 TECHNOLOG TECHNOLOG DOUBLE IES INC IES INC UPRIGHT THIGH & CALF PREFAB RADIOLOGI 75119 [facility] C 4 N N EXAMINATI COMMUNITY COMMUNITY ON KNEE HOSPITA HOSPITA 1/2 VIEWS BLOOD 97568 [facility] COUNT 4 N N COMPLETE [facility] AUTOMATED HOSPITA HOSPITA COLLECTIO 72232 [facility] N VENOUS 4 N N BLOOD [facility] VENIPUNCT HOSPITA HOSPITA URE RADIOLOGI 45314 [facility] [place] NIKKI C 4 RADIOLOGY RHO EXAMINATI ON PELVIS 1/2 VIEWS COMPREHEN 27716 [facility] SIVE 4 N N METABOLIC [facility] PANEL HOSPITA HOSPITA RADIOLOGI 20812 [facility] [place] NI[place] C 4 RADIOLOGY RHO EXAMINATI ON KNEE 3 VIEWS RADIOLOGI 11538 [facility] EXAM 4 N N BOTH [facility] KNEES HOSPITA HOSPITA STANDING ANTEROPOS T ADMINISTR G0008 [employer] [facility] PHARMACY INFLUENZA #591 #591 VIRUS VACCINE IIV3 VACC 50814 [employer] PHARMACY PRESERVAT #591 #591 JAG FREE 0.5 ML DOSAGE IM USE INJECTION J1100 MAGED LYNNE 4 JANE JANE DEXAMETHO SONE SODIUM PHOSPHATE 1 MG INJECTION J2405 [facility]AS 4 [facility] ONDANSETR INC INC ON HCL PER 1 MG THERAPEUT 60823 [facility] B[facility] IC 4 [facility] INJECTION [place] [address] [facility] INFUSION 4 [facility] THERAPY/P INC INC ROPHYLAXI S /DX 1ST TO 1 HR ARTHRS 72162 [facility] KNEE 4 [facility] ABRASION INC INC ARTHRP/ML [place] DRLG/[place] [address] [facility] INFUSION 4 [facility] THERAPY INC INC PROPHYLAX IS/DX EA HOUR ARTHRS 91713 [facility] KNEE 4 [facility] W/MENISCE INC INC CTOMY MED&LAT W/SHAVING BASIC 87014 [facility] METABOLIC 4 [facility] PANEL INC INC CALCIUM TOTAL ECG 73507 INDIO ADAM JR ROUTINE 4 [facility] W/LEAST P 12 LDS I&R ONLY BLOOD 49485 [facility]JAS COUNT 4 [facility] COMPLETE INC INC AUTO&AUTO DIFRNTL WBC ECG 88340 [facility] ROUTINE 4 [facility] ECG INC INC W/LEAST 12 LDS TRCG ONLY W/O I&R COLLECTIO 58406 [facility] N VENOUS 4 [facility] BLOOD INC INC VENIPUNCT URE URNLS DIP 04053 MAGED LYNNE 4 JANE JANE STICK/TAB LET RGNT NON-AUTO W/O MICRSCP RADEX 19494 [facility]AS SPINE 4 [facility] LUMBOSACR INC INC AL MINIMUM 4 VIEWS CERV/VAGI G0101 CHARLES PERERA NAL 4 DILMA CASILLAS CANCER SCR; PELV&CLIN BREAST EXAM SCR G0145 BIO BIO CYTOPATH 4 REFERNCE REFERNCE CERV/VAG LABORATOR LABORATOR SCR IES IES AUTO&MNL RSCR PHYS RADIOLOGI 68844 [facility] C 4 [facility] EXAMINATI INC INC ON KNEE 3 VIEWS IADNA 56027 BIO BIO TRICHOMON 4 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 VAGINALIS IES IES AMPLIFIED PROBE TECH ANNUAL G0438 CHARLES PERERA WELLNESS 4 DILMA CASILLAS VISIT; PERSONALI Z PPS INIT VISIT THERAPEUT 96463 [facility] IC 4 [facility] PROPHYLAC INC INC TIC/DX INJECTION SUBQ/IM SCREEN Q0091 CHARLES PERERA PAP 4 DILMA CASILLAS SMEAR; OBTAIN PREP &C ONVEY TO LAB URINLS 28764 CHARLES Bojorquez DIP 4 DILMA PERERA MD STICK/TAB LET REAGNT NON-AUTO MICRSCPY BLOOD 27168 [facility] COUNT 4 SUZI SUZI COMPLETE [facility] AUTOMATED COMPREHEN 43161 [facility] SIVE 4 [facility] METABOLIC [place] [address] [facility] THYROID 4 [facility] STIMULATI [facility] NG HORMONE TSH ARTHROCEN 12543 [facility] PETTEY TESIS 4 PHYSICIAN ALFONSO ASPIR&/IN S GROUP J MAJOR JT/[place] W/[place] [address] [facility] THYROID 4 [facility] STIMULATI INC INC NG HORMONE TSH COMPREHEN 77814 [facility] SIVE 4 [facility] METABOLIC INC INC PANEL BLOOD 11291 [facility] COUNT 4 [facility] COMPLETE INC INC AUTO&AUTO DIFRNTL WBC URNLS DIP 01420 INDIO BORJAS 4 [facility] HOSP STICK/TAB INC INC LET REAGENT AUTO MICROSCOP Y COLLECTIO 13536 INDIO Laguerre VENOUS 4 [facility] HOSP BLOOD INC INC VENIPUNCT URE LIPID 02771 [facility] PANEL 4 [facility] INC INC MRI ANY 96999 [place] KLARISSA JT LOWER 4 MEDICAL KASSANDRA EXTREM IMAGING W/O ASS CONTRAST MATRL THERAPEUT 84634 [facility] IC 4 [facility] PROPHYLAC INC INC TIC/DX INJECTION SUBQ/IM DIAGNOSTI G0204 [facility]IO BORJAS C 3 [facility] HOSP MAMMOGRAP INC INC HY INCL CAD WHEN PERF; BILAT HYALURONA J7325 [facility] PETTEY N/DERIV 3 PHYSICIAN ALFONSO SYNVISC/S S GROUP YNVISC-ON E IA INJ 1 MG ARTHROCEN 82860 [facility] PETTEKim[facility] TESIS 3 PHYSICIAN ALFONSO ASPIR&/IN S GROUP J MAJOR JT/BURSA W/O US APPL 37151 MIAN ORTIZ MODALITY 3 MATT 1/> AREAS [place] [address] MIAN ORTIZ 1/> AREAS 3 AMTT EACH 15 CHIROPRAC MIN TIC CENTE NEUROMUSC REEDUCA THERAPEUT 96530 MIAN ORITZ IC PX 1/> 3 MATT AREAS CHIROPRAC EACH 15 TIC CENTE MIN EXERCISES APPLICATI 63127 MIAN DIANA ON 3 MATT MODALITY CHIROPRAC 1/> AREAS TIC CENTE HOT/COLD PACKS CHIROPRAC 74624 MIAN DIANA TIC 3 MATT MANIPULAT CHIROPRAC JAG TX TIC CENTE SPINAL 3-4 REGIONS CHIROPRAC 16772 MIAN DIANA TIC 3 MATT MANIPULAT CHIROPRAC JAG TX TIC CENTE SPINAL 3-4 REGIONS APPLICATI 34304 MIAN DIANA ON 3 MATT MODALITY CHIROPRAC 1/> AREAS TIC CENTE HOT/COLD PACKS THERAPEUT 39545 MIAN DIANA IC PX 1/> 3 MATT AREAS CHIROPRAC EACH 15 [place] [address] MIAN DIANA 1/> AREAS 3 MATT EACH 15 CHIROPRAC MIN TIC CENTE NEUROMUSC REEDUCA APPL 57163 MIAN DIANA MODALITY 3 MATT 1/> AREAS CHIROPRAC TRACTION TIC CENTE MECHANICA L APPL 66920 MIAN DIANA MODALITY 3 MATT 1/> AREAS CHIROPRAC TRACTION TIC CENTE MECHANICA L THERAPEUT 87953 MIAN DIANA IC PX 1/> 3 MATT AREAS CHIROPRAC EACH 15 TIC CENTE MIN EXERCISES APPLICATI 04402 MIAN ORTIZ ON 3 MATT MODALITY CHIROPRAC 1/> AREAS TIC CENTE HOT/COLD PACKS CHIROPRAC 09614 MIAN DIANA TIC 3 MATT MANIPULAT CHIROPRAC JAG TX TIC CENTE SPINAL 3-4 REGIONS BOTULINUM J0585 [facility] MANLEY ÁNGEL TOXIN 3 N TYPE A NEUROLOGY PER UNIT CHEMODERV 49647 [facility] MANLEY ÁNGEL ATE 3 N FACIAL/TR NEUROLOGY IGEM/CERV MUSC MIGRAINE INJECTION J0171 [facility] 3 N N ADRENALIN [facility] EPINEPHRI NE 0.1 MG SEPTOPLAS 59459 [facility] TY/SUBMUC 3 N N OUS [facility] W/WO CARTILAGE GRF NASAL/SIN 73626 [facility] US 3 N N ENDOSCOPY [facility] HOSPITA HOSPITA W/MAXILLA RY ANTROSTOM Y SUBMUCOUS 34104 [facility] RESCJ 3 N N INFERIOR [facility] TURBINATE HOSPITA HOSPITA PRTL/COMP L INJ Q9968 [facility] NONRADIAT 3 N N JAG [facility] NONCONTRA HOSPITA HOSPITA ST VIZ ADJUNCT 1 MG NASAL/SIN 56764 [facility] 3 N N ENDOSCOPY [facility] HOSPITA HOSPITA W/ETHMOID ECTOMY TOTAL NASAL/SIN 98951 [facility] NDSC 3 N N W/FRONTAL [facility] SINUS HOSPITA HOSPITA EXPLORATI ON NASAL/SIN 04699 [facility] 3 N N ENDOSCOPY [facility] HOSPITA HOSPITA W/SPHENOI DOTOMY INJECTION J0690 [facility] 3 N N CEFAZOLIN [facility] SODIUM HOSPITA HOSPITA 500 MG STRTCTC 29576 [facility] CPTR 3 N N ASSTD PX [facility] EXTRADURA HOSPITA HOSPITA L CRANIAL INJECTION J3010 [facility] FENTANYL 3 N N CITRATE [facility] 0.1 MG HOSPITA HOSPITA INJECTION J2370 [facility] 3 N N PHENYLEPH [facility] RINE HCL HOSPITA HOSPITA UP TO 1 ML INJECTION J2405 [facility] 3 N N ONDANSETR [facility] ON HCL HOSPITA HOSPITA PER 1 MG ANESTHESI 55719 [facility] Damian NOSE & 3 ANESTHESI ELIU ACCESSORY A GROUP SINUSES PS NOS DECALCIFI 19464 [facility] CATION 3 N N PROCEDURE [facility] [place] [address] [facility] SURG 3 N N PATHOLOGY [facility] HOSPITA HOSPITA GROSS&MIKAL ROSCOPIC EXAM INJECTION J1100 [facility] 3 N N DEXAMETHO [facility] SONE HOSPITA HOSPITA SODIUM PHOSPHATE 1 MG INJECTION J2001 [facility] 3 N N LIDOCAINE [facility] HCL HOSPITA HOSPITA INTRAVENO US INFUS 10 MG BLOOD 41446 [facility] COUNT 3 N N HEMATOCRI [facility] T HOSPITA HOSPITA COLLECTIO 40560 [facility] N VENOUS 3 N N BLOOD [facility] VENIPUNCT HOSPITA HOSPITA URE BLOOD 32561 [facility] COUNT 3 N N HEMOGLOBI [facility] N HOSPITA HOSPITA INTRACUTA 45287 EAR, NOSE SHASHY NEOUS 3 AND HARESH TESTS THROAT W/ALLERGE SPECIAL ABNER EXTRACTS PERCUTANE 42483 EAR, NOSE SHASHY OUS TESTS 3 AND HARESH THROAT W/[place] [address] [facility] [place] [facility] ELIU MAXILLOFA 3 RADIOLOGY CIAL W/O CONTRAST MATERIAL NASOPHARY 46660 EAR, NOSE SHASHY NGOSCOPY 3 AND HARESH W/[place] [address] MIAN ORTIZ 1/> AREAS 3 MATT EACH 15 CHIROPRAC MIN TIC CENTE NEUROMUSC REEDUCA APPL 06856 MIAN ORTIZ MODALITY 3 MATT 1/> AREAS CHIROPRAC TRACTION TIC CENTE MECHANICA L CHIROPRAC 62301 MIAN ORTIZ TIC 3 MATT MANIPULAT CHIROPRAC JAG TX TIC CENTE SPINAL 3-[place] [address] MIAN ORTIZ 1/> AREAS 3 MATT EACH 15 CHIROPRAC MINUTES TIC CENTE MASSAGE OPHTHALMO 53784 JACKELYN HAYDEN SCPY 3 JAM JAM EXTENDED RETINAL DRAWING I&R 1ST DETERMINA 48216 JACKELYN HAYDEN TION 3 JAM JAM REFRACTIV E STATE CHIROPRAC 34114 MIAN ORTIZ TIC 3 MATT MANIPULAT CHIROPRAC JAG TX TIC CENTE SPINAL 3-[place] [address] MIAN ORTIZ 1/> AREAS 3 MATT EACH 15 CHIROPRAC MINUTES TIC CENTE MASSAGE APPL 81321 MIAN ORTIZ MODALITY 3 MATT 1/> AREAS [place]OP[place] [address] MIAN ORTIZ 1/> AREAS 3 MATT EACH 15 CHIROPRAC [place] [address] MIAN ORTIZ 1/> AREAS 3 MATT EACH 15 CHIROPRAC MIN TIC CENTE NEUROMUSC REEDUCA APPL 61006 MIAN ORTIZ MODALITY 3 MATT 1/> AREAS [place]IROPRAC [place] [address] MIAN ORTIZ 1/> AREAS 3 MATT EACH 15 CHIROPRAC MINUTES TIC CENTE MASSAGE CHIROPRAC 47164 MIAN ORTIZ TIC 3 MATT MANIPULAT CHIROPRAC JAG TX TIC CENTE SPINAL 3-4 REGIONS THERAPEUT 61706 [facility]ORJAS IC 2 [facility] PROPHYLAC INC INC TIC/DX INJECTION SUBQ/IM COMPUTER- 93351 [place] KLARISSA AIDED 2 MEDICAL KASSANDRA DETECTION IMAGING ASS SCREENING MAMMOGRAP HY SCREENING G0202 [place] KLARISSA 2 MEDICAL [place] MAMMOGRAP IMAGING HY BENEDICT ASS INCL CAD WHEN PERFORMD CHIROPRAC 57094 MIAN CALVERT DOMINIQUE TIC 2 MANIPULAT CHIROPRAC JAG TX TIC CENTE SPINAL 3-4 REGIONS CHIROPRAC 58848 MIAN CALVERT DOMINIQUE TIC 2 MANIPULAT CHIROPRAC JAG TX TIC CENTE SPINAL 3-4 [place] [address] CHARLES PERERA DIP 2 DILMA PEREZ SONJA STICK/TAB LET REAGNT NON-AUTO MICRSCPY ANNUAL G0438 CHARLES Bojorquez WELLNESS 2 DILMA PERERA MD VISIT; PERSONALI Z PPS INIT VISIT BLOOD 47792 CHARLES PERERA OCCULT 2 DILMA CASILLAS PEROXIDAS E ACTV QUAL FECES 1 DETER CYTP C/V 06133 BIO BIO AUTO THIN 2 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 PREPJ SCR IES IES MNL RESCR PHYS IADNA 09003 BIO BIO NEISSERIA 2 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 GONORRHOE IES IES AE AMPLIFIED PROBE TQ IADNA NOS 71547 BIO BIO 2 REFERNCE REFERNCE AMPLIFIED LABORATOR LABORATOR PROBE TQ IES IES EACH ORGANISM IADNA 84715 BIO BIO CHLAMYDIA 2 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 TRACHOMAT IES IES IS AMPLIFIED PROBE TQ CHIROPRAC 92783 MIAN DIANA TIC 2 MATT MANIPULAT CHIROPRAC JAG TX TIC CENTE SPINAL 3-4 REGIONS CHIROPRAC 94070 [place] CALVERT DOMINIQUE TIC 2 MANIPULAT CHIROPRAC JAG TX TIC CENTE SPINAL 3-4 REGIONS CHIROPRAC 92197 [place] CALVERT DOMINIQUE TIC 2 MANIPULAT CHIROPRAC JAG TX TIC CENTE SPINAL 3-4 REGIONS CHIROPRAC 44577 [place] CALVERT DOMINIQUE TIC 2 MANIPULAT CHIROPRAC JAG TX TIC CENTE SPINAL 3-4 REGIONS CHIROPRAC 91535 [place] CALVERT DOMINIQUE TIC 2 MANIPULAT CHIROPRAC JAG TX TIC CENTE SPINAL 3-4 REGIONS RADEX 32581 [facility] SPINE 2 MEDICAL KASSANDRA LUMBOSACR IMAGING AL ASS MINIMUM 4 VIEWS INJ J0702 BROCK BROCK BETAMETHA 2 JAM JAM SONE ACETATE & PHOSPHATE 3 MG INFLUENZA Q2036 BROCK [facility]OCK VACC 2 JAM JAM SPLIT VIRUS 3 YRS & > IM FLULAVAL INJECTION J1100 BROCK BROCK 2 JAM JAM DEXAMETHO SONE SODIUM PHOSPHATE 1 MG URNLS DIP 72807 BROCK BROCK 2 JAM JAM STICK/TAB LET RGNT NON-AUT[place] W/[place] [address] [facility] [place] MAT ABDOMEN & 2 RADIOLOGY PELVIS W/O CONTRAST MATERIAL URNLS DIP 95484 [place] 2 [facility] STICK/TAB HOSPITAL HOSPITAL LET REAGENT AUTO MICROSCOP Y RADEX 01626 [facility] FOOT 2 [facility] COMPLETE INC INC MINIMUM 3 VIEWS TDAP 08339 [facility] VACCINE 7 2 [facility] YRS/> IM INC INC RADEX TOE 12936 [facility] B[facility] MINIMUM 2 [facility]OS[facility] 2 VIEWS INC INC RADIOLOGI 59036 [place] KLARISSA C 2 MEDICAL [place] EXAMINATI IMAGING ON [place] [address] [place] [address] [facility] [place] ABDOMEN & 2 RADIOLOGY CAR PELVIS W/O CONTRAST MATERIAL CUL BACT [address] ADDL METHS DEFINITIV E EA ISOL SMR PRIM [address] GRAM/GIEM SA STAIN BCT FUNGI/JOSE L CUL BACT 28861 [facility] XCPT [address] [place] [address] URINE BLOOD/STO OL AEROBIC ISOL COMPREHEN 86143 [facility] SIVE [address] [place] [address] METABOLIC PANEL HEMOGLOBI [address] GLYCOSYLA STEFANO A1C PREALBUMI [address] DEBRIDEME [address] SUBCUTANE OUS TISSUE 20 SQ CM/< COLLECTIO [address] [facility] VENOUS [address] [place] [address] BLOOD VENIPUNCT URE INJECTION J1100 MAGED LYNNE 1 JANE JANE DEXAMETHO SONE SODIUM PHOSPHATE 1 MG MRI LOWER 92446 [place] KLARISSA EXTREM 1 MEDICAL [place]ASS[place]DRA OTH/THN IMAGING JT W/O ASS CONTR MATRL RADIOLOGI 70950 [facility] [place] NIKKI C 1 RADIOLOGY RHO EXAMINATI ON KNEE 3 VIEWS LOCM Q9967 [phone] [facility] MG/[facility] IODINE CONCENTRA TION PER ML HI OSM Q9963 [facility] [place] CONTR[facility] 1 [facility] [phone] MG/[place] [address] [facility] [place] MAT ABDOMEN & 1 RADIOLOGY PELVIS W/CONTRAS T MATERIAL URNLS DIP 03600 [facility] 1 [facility] STICK/TAB INC INC LET REAGENT AUTO MICROSCOP Y MRI LOWER 40927 KRISHNA KELLER EXTREM [address] [facility] JT W/O & W/CONTR MATR NRV CNDJ 39624 CATHOLIC JULIETA T AMPLITUDE 1 NEUROLOGY & SERVICES LATENCY EACH NERVE SENSORY H-REFLEX 55308 CATHOLIC JULIETA [place] AMPLT&LAT 1 NEUROLOGY ENCY SERVICES GASTRCN/S OLEUS MUSC NRV CNDJ 26466 CATHOLIC JULIETA T AMPLT&LAT 1 NEUROLOGY NCY EA SERVICES NRV MOTR W/O F-WAVE STD NRV CNDJ 79577 [facility]AL CENTRAL AMPLT&LAT 1 CATHOLIC CATHOLIC ENCY EA HOSP HOSP NRV MOTOR W/F-WAVE STD RADEX 48530 [facility] [place] ARCHER FOOT 1 RADIOLOGY [place] COMPLETE MIN[address] [place] [address] [facility] ABDOMEN & 1 [facility] PELVIS INC INC W/O CONTRAST MATERIAL URNLS DIP 61584 [facility] 1 [facility] STICK/TAB INC INC LET REAGENT AUTO MICROSCOP Y 3D 68155 [facility] RENDERING 1 [facility] INC INC W/INTERP& POSTPROC DIFF WORK STATION [place] LOWER [address] [facility] EXTREMITY 0 N N W/O [facility] CONTRAST HOSPITA HOSPITA MATERIAL INITIAL 00181 [place] 1ST 0 EMERGENCY III CHERYL DEG[facility] SERVICES BURN LOCAL TX INJECTION J2405 [facility] 0 N N ONDANSETR [facility] COMMUNITY ON HCL HOSPITA HOSPITA PER 1 [place] [address] PATHOLOGY PATHOLOGY SURG 0 & & PATHOLOGY CYTOLOGY CYTOLOGY GROSS LAB LAB EXAMINATI ON ONLY RADIOLOGI 06462 [facility] C 0 N N EXAMINATI COMMUNITY [facility] ON FOOT 2 HOSPITA HOSPITA VIEWS COMPREHEN 11194 [facility] SIVE 0 N N METABOLIC COMMUNITY COMMUNITY PANEL HOSPITA HOSPITA FLUOROSCO 62776 [facility] PY SPX UP 0 N N TO 1 COMMUNITY COMMUNITY HOUR HOSPITA HOSPITA PHYS/QHP TIME RADIOLOGI 50089 [facility] [place] [facility] MAT C EXAM 0 RADIOLOGY CHEST 2 VIEWS FRONTAL&L ATERAL UNLISTED 09498 [facility] ANESTHESI 0 N N A COMMUNITY COMMUNITY PROCEDURE HOSPITA HOSPITA INJECTION J2250 [facility] 0 N N MIDAZOLAM [facility] HCL PER HOSPITA HOSPITA 1 MG BLOOD 78196 [facility] COUNT 0 N N COMPLETE [facility] AUTO&AUTO HOSPITA HOSPITA DIFRNTL WBC COLLECTIO 59230 [facility] N VENOUS 0 N N BLOOD [facility] VENIPUNCT HOSPITA HOSPITA URE ECG 05909 [facility] ROUTINE 0 N N ECG [facility] W/LEAST HOSPITA HOSPITA 12 LDS TRCG ONLY W/O I&R REMOVAL 42389 [facility] FOREIGN 0 N N BODY FOOT [facility] HOSPITA COMPLICAT ED ANES 39009 [place] RICHARD INTEG 0 ANESTHESI JOHN EXTREMITI A GROUP ES ANT PSC TRUNK & PERINEUM NOS RADIOLOGI 20196 GILLIAN ESPOSITO C 0 EMERGENCY DORIAN EXAMINATI SERVICES ON FOOT 2 VIEWS RADEX 11229 [facility] FOOT 0 N N SHARP [facility] MINIMUM 3 HOSPITA HOSPITA VIEWS RADIOLOGI 41943 CNTRL [place] ZOHAIB, C EXAM 0 RADIOLOGY MELISSA D CHEST 2 VIEWS FRONTAL&L ATERAL RADIOLOGI 22905 [place] KLARISSA C 0 MEDICAL EUNICE EXAMINATI IMAGING ON PELVIS ASSOCIATE 1/2 S VIEWS RADEX HIP 19663 [place] KLARISSA, 0 MEDICAL EUNICE UNILATERA IMAGING L ASSOCIATE COMPLETE S MINIMUM 2 VIEWS URNLS DIP 81124 INDIO BORJAS 0 [facility] STICK/TAB INC INC LET REAGENT AUTO MICROSCOP Y ANES 37688 [place] DEPA, UPPER GI 0 ANESTHESI MARCIA ENDOSCOPY A GROUP PROXIMAL PSC TO DUODENUM EGD 11413 MICHELLE OWENS- TRANSORAL 0 ALEXANDRU, ALEXANDRU, BIOPSY ROSA LEE SINGLE/MU LTIPLE SPECIAL 52113 PATHOLOGY PATHOLOGY STAIN 0 & & GROUP 1 CYTOLOGY CYTOLOGY MICROORGA LAB LAB NISMS I&R SPCL STN 04832 PATHOLOGY PATHOLOGY 2 I&R 0 & & EXCPT CYTOLOGY CYTOLOGY MICROORG/ LAB LAB ENZYME/[place] L[place] [address] PATHOLOGY PATHOLOGY SURG 0 & & PATHOLOGY CYTOLOGY CYTOLOGY LAB LAB GROSS&[place] [address] INDIO BORJAS AMYLASE 0 [facility] INC INC CREATINE 36632 INDIO BORJAS KINASE MB 0 [facility] FRACTION INC INC ONLY COMPREHEN 09351 INDIO INDIO SIVE 0 [facility] METABOLIC INC INC PANEL ECG 13648 INDIO ADAM, ROUTINE 0 [facility] W/LEAST PROF SERV 12 LDS I&R ONLY ECG 53065 INDIOCYRUS BORJAS ROUTINE 0 [facility] ECG INC INC W/LEAST 12 LDS TRCG ONLY W/O I&R CREATINE 84198 INDIO INDIO KINASE 0 [facility] [place] [address] INDIO BORJAS LIPASE 0 [place] [address] INDIO BORJAS TROPONIN 0 [facility] QUANTITAT INC INC JAG BLOOD 35605 INDIO BORJAS COUNT 0 [facility] COMPLETE INC INC AUTO&AUTO DIFRNTL WBC HYALURONA J7325 ESTRELLA BANEGAS N/DERIV 0 MEDICAL ODELL T SYNVISC/S SERV YNVISC-ON FOUNDATIO E IA INJ 1 MG APPL 54719 JUDY KIM MODALITY 0 [place] [address]/[facility] ULTRASOUN D EA 15 MIN THERAPEUT 87617 JUDY KIM IC PX 1/> 0 [facility] EACH 15 MIN EXERCISES INJECTION J3301 Promise REYNOLDS MEDICAL ODELL T TRIAMCINO SERV LONE FOUNDATIO ACETONIDE NOS 10 MG RADIOLOGI 54185 INDIO Suárez EXAM 9 [facility] BOTH INC INC KNEES STANDING ANTEROPOS T ARTHROCEN 03334 GIOVANNY REYNOLDS 9 MEDICAL ODELL T ASPIR&/IN SERV J MAJOR FOUNDATIO JT/BURSA W/O US RADIOLOGI 53682 [place] KLARISSA, C 9 MEDICAL EUNICE EXAMINATI IMAGING ON KNEE ASSOCIATE 1/2 VIEWS S MRI ANY 64896 CNTRL [place] VALEROT LOWER 9 RADIOLOGY ADRIANA FAROOQ W/O CONTRAST MATRL RADIOLOGI 10669 [facility] KELSEAF[facility] C [facility] ON KNEE 3 VIEWS RADIOLOGI 03515 CNTRL Kamini SUMNER 9 RADIOLOGY J EXAMINATI ON KNEE 1/2 VIEWS GAUZE A6222 CCS CCS IMPREG 9 MEDICAL MEDICAL NOT H2O NL SALINE/HY DROGEL 16 SQ/< SPCLTY A6251 CCS [facility]CS ABSORB 9 MEDICAL MEDICAL DRESS STERL 16 SQ/<NO ADHES BORDR TAPE A4452 CCS CCS [place] 9 MEDICAL MEDICAL F PER 18 SQUARE INCHES LEVEL III 79138 ESTRELLA DE LA ROSA SURG 9 MEDICAL MEDICAL PATHOLOGY SERV SERV FOUNDATIO FOUNDATIO GROSS&MIKAL ROSCOPIC EXAM BX SKIN 55598 [facility] 9 Y Y OUS&/MUCO [facility] US MEMBRANE 1 LESION BLOOD 63496 [place] COUNT [address] [facility] AUTOMATED CREATINE 33104 [facility] KINASE 9 [facility] COLLECTIO 59825 [facility] N VENOUS 9 [facility] VENIPUNCT URE LIPID 69710 [facility] PANEL [address] [place] [address] [place] [address] [facility] THYROID 9 [facility] HORMONE TSH COMPREHEN 65972 [facility] SIVE [address] [facility] [address] PELVIS 55045 UNIVERSIT UNIVERSIT 9 Y Y W/[facility] [address] UNIVERSIT UNIVERSIT ABDOMEN 9 Y Y W/[facility] T MATERIAL LOCM Q9967 UNIVERSIT UNIVERSIT [phone] Y Y MG/ML [facility] IODINE CONCENTRA TION PER ML COLLECTIO 81627 [facility]IVERS [facility]ERS[facility] N VENOUS 9 Y Y [facility] VENIPUNCT URE BLOOD 67757 UNIVERSIT UNIVERSIT COUNT 9 Y Y [facility] AUTO&AUTO DIFRNTL WBC BASIC 69679 [facility] METABOLIC 9 Y Y [facility] CALCIUM TOTAL ALGINAT/O A6196 CCS CCS TH FIBER 9 MEDICAL MEDICAL GELL DRESS STERIL PAD 16 SQ/< SPCLTY A6251 CCS CCS ABSORB 9 MEDICAL MEDICAL DRESS STERL 16 SQ/<NO ADHES BORDR TAPE A4452 CCS CCS [place] 9 MEDICAL MEDICAL F PER 18 SQUARE INCHES CULTURE 64293 [facility] BACTERIAL 9 Y Y [facility] AEROBIC W/ID ISOLATES SCR G0145 PATHOLOGY PATHOLOGY CYTOPATH 9 & & CERV/VAG CYTOLOGY CYTOLOGY SCR LAB LAB AUTO&MNL RSCR PHYS SUSCEPTIB 08583 [facility] ILITY 9 [facility] [employer] [facility] STUDY ANTIMICRO BIAL DISK METHOD CULTURE 46045 [facility] TYPING 9 [facility] IMMUNOLOG IC OTH/THN IMMUNOFLU ORES CUL BACT 52361 [facility] XCPT 9 [facility] [employer] [facility] URINE BLOOD/STO OL AEROBIC ISOL RADEX 31821 [place] [facility] [address] [facility] MINIMUM 2 VIEWS THERAPEUT 37705 TOMER SMALLWOOD IC PX 1/> 8 [facility] J EACH 15 PSC MIN EXERCISES THERAPEUT 40342 ROMEO ROSA PX 1/> 8 [facility]OC J EACH 15 PSC MIN EXERCISES MANUAL 08231 TOMER SMALLWOOD, THERAPY 8 NAL REHAB MARCOS TQS 1/> ASSOC J REGIONS PSC EACH 15 MINUTES MANUAL 45450 TOMER SMALLWOOD, THERAPY 8 NAL REHAB MARCOS TQS 1/> ASSOC J REGIONS PSC EACH 15 MINUTES THERAPEUT 28113 TOMER SMALLWOOD IC PX 1/> 8 NAL REHAB MARCOS AREAS ASSOC J EACH 15 PSC MIN EXERCISES THERAPEUT 76485 TOMER SMALLWOOD IC PX 1/> 8 NAL REHAB MARCOS AREAS ASSOC J EACH 15 PSC MIN EXERCISES MANUAL 29420 TOMER SMALLWOOD, THERAPY 8 NAL REHAB MARCOS TQS 1/> ASSOC J REGIONS PSC EACH 15 MINUTES MANUAL 69010 TOMER SMALLWOOD, THERAPY 8 NAL REHAB MARCOS TQS 1/> ASSOC J REGIONS PSC EACH 15 MINUTES THERAPEUT 00629 TOMER SMALLWOOD, IC PX 1/> 8 NAL REHAB MARCOS AREAS ASSOC J EACH 15 PSC MIN EXERCISES PHYSICAL 60205 TOMER SMALLWOOD, THERAPY 8 NAL REHAB MARCOS EVALUATIO ASSOC J N PSC THERAPEUT 74003 TOMER SMALLWOOD, IC PX 1/> 8 NAL REHAB MARCOS AREAS ASSOC J EACH 15 PSC MIN EXERCISES APPL 12018 TOMER SMALLWOOD, MODALITY 8 NAL REHAB MARCOS 1/> AREAS ASSOC J PSC ULTRASOUN D EA 15 MIN MRI 24387 [facility] SPINAL 8 [facility] LUMBAR W/O CONTRAST MATERIAL NDL EMG 1 61375 TERRY STEWART, XTR W/WO 8 [place] LERMA RELATED PARASPINA L AREAS NRV CNDJ 38795 TERRY STEWART, AMPLITUDE 8 [place] LERMA & LATENCY EACH NERVE SENSORY NRV CNDJ 39496 TERRY STEWART, AMPLT&LAT 8 [place] LERMA ENCY EA NRV MOTOR W/F-WAVE STD MRI 66181 EUNICE C KLARISSA, SPINAL 8 KLARISSA EUNICE CANAL LUMBAR W/O CONTRAST MATERIAL INJECTION J1030 FAMILY FAMILY 8 CARE CARE METHYLPRE ASSOCIATE ASSOCIATE DNISOLONE S S ACETATE 40 MG Encounters Encounter Start End Date Code Location Performer Type Date OFFICE 88985 CARDIOVAS CEVALLOS [facility] 7 7 CULAR & T VISIT SLEEP 25 CONSU MINUTES [facility] 7 7 [facility] 7 7 [facility] 48943 [facility] 7 7 T VISIT ORTHOPAED 15 ICS PSC MINUTES [facility] [place] [facility] 7 7 [facility] 59925 CARDIOVAS [facility] 7 7 CULAR & T VISIT SLEEP 15 CONSU [facility] [place] [facility] 7 7 [facility] [place] [facility] 7 7 [facility] 23096 [facility] 7 7 [facility] T NEW 30 CLINIC MINUTES PSC OFFICE 69479 [facility] 7 7 T VISIT ORTHOPAED 15 ICS PSC MINUTES OFFICE 87169 YAMIL TAYLOR [facility] 7 7 REGIONAL T NEW 45 PHYSICIAN MINUTES [facility] YAMIL - 7 7 [facility] 60994 CARD[facility]AS [facility] 7 7 CULAR & T VISIT SLEEP 15 CONSU [facility] [place] [facility] [address] [facility] OFF[facility] 83099 [facility] 7 7 T VISIT ORTHOPAED 10 ICS PSC MINUTES [facility] 72661 [facility] HIGH/URGE NT [facility] [place] [facility] [address] [facility]OSPITAL IND[place] - 7 7 [facility] 51602 Y[facility]IL [facility] 7 7 DIGESTIVE T NEW 45 CARE MINUTES CENTER OFFICE 72185 [facility]AS [facility] 7 7 CULAR & T VISIT SLEEP 15 CONSU [facility] - 7 7 [facility] OFF[facility] 59953 CARD[facility]OVAS [facility] 7 7 CULAR & T VISIT SLEEP 25 CONSU MINUTES [facility] [place] - 7 7 [facility] EMERGENC[facility] 01342 [facility] DE[facility] 7 7 SHADY VISIT EMERGENCY HIGH PHYS SEVERITY& THREAT FUNCJ EMERGENCY 27167 [place] 7 7 [facility] VISIT HIGH/URGE NT SEVERITY OFFICE 08494 CARDIOVAS [facility] 7 7 CULAR & T VISIT SLEEP 25 CONSU MINUTES [facility] [place] [facility] [address] [facility] HOSPITAL INDIO - 7 7 [facility] [address] [facility] EMERGENCY 28002 [facility] 7 7 [facility] VISIT HIGH/URGE NT SEVERITY EMERGENCY 68778 [facility] 7 7 SHADY VISIT EMERGENCY HIGH PHYS SEVERITY& THREAT FUNCJ OFFICE 26383 BROCK LYNNE [facility] 7 7 AND T VISIT MAGED, 25 PSC MINUTES OFFICE 26833 [facility] 7 7 T VISIT ORTHOPAED 10 ICS PSC MINUTES EMERGENCY 83916 INDIO 6 6 [facility] T VISIT LIMITED/M INOR PROB EMERGENCY 43924 JUSTIN IQBALH [address] [facility] S, PLL T VISIT HIGH/URGE NT SEVERITY [facility]OSPITAL [place] - 6 6 [facility] 84290 ALLERGY ZIEGLER MAR [facility] 6 6 PARTNERS T VISIT OF [place] 40 CO MINUTES OFFICE 88579 [facility] 6 6 GRE T VISIT ORTHOPAED 15 ICS PSC MINUTES HOSPITAL [place] - 6 6 [facility] OUTPATIEN [facility] OFFICE 07127 CHASTITY KIDD OUTPATIEN 6 6 GRE T VISIT ORTHOPAED 15 ICS PSC MINUTES OFFICE 06432 ALLERGY ZIEGLER MAR OUTPATIEN 6 6 PARTNERS T VISIT OF [place] 25 CO MINUTES HOSPITAL IND[facility] - 6 6 [facility] - 6 6 [facility] EM[facility] 54588 JUSTIN RUELAS 6 6 PHYSICIAN KADY GONZALEZC T VISIT MODERATE SEVERITY HOSPITAL IND[facility] - 6 6 [facility] EMERGENCY 60951 INDIO 6 6 [facility] T VISIT LIMITED/M INOR [facility] INDIO - 6 6 [facility] [place] ISELAON - 6 6 [facility] 50183 CHASTITY LUIS OUTPATIEN 6 6 SOPHIE T VISIT ORTHOPAED 15 ICS PSC MINUTES HOSPITAL INDIO - 6 6 [facility] EMERGENCY 72808 JUSTIN RICE 6 6 PHYSICIAN Tanisha BRIONES S PLL[facility] T VISIT MODERATE SEVERITY OFFICE 47147 [place] [facility] OUTPATIEN 6 6 [place] SOP[place]IE T VISIT ORTHOPAED 15 ICS PLC MINUTES OFFICE 79184 INDIO SILVER [facility] OUTPATIEN 6 6 MEMORIAL T VISIT HOSPITAL 15 MINUTES OFFICE 36761 ALLERGY ZIEGLER MAR OUTPATIEN 6 6 PARTNERS T VISIT OF [place] 25 CO MINUTES HOSPITAL INDIO - 5 5 [facility] OFFICE 07071 ALLERGY ZIEGLER MAR OUTPATIEN 5 5 PARTNERS T VISIT OF [place] 25 CO MINUTES OFFICE 20140 MIAN VICTORIA OUTPATIEN 5 5 VISION ANG T VISIT CENTER 10 MINUTES HOSPITAL [facility]GEW - 5 5 N [facility] 5 5 N OUTPATIEN COMMUNTIY T HOSPITA OFFICE 51411 [facility] LUIS OUTPATIEN 5 5 [place] SOPHIE T VISIT ORTHOPAED 25 ICS PLC MINUTES OFFICE 43027 [facility] OUTPATIEN 5 5 [place] T VISIT ORTHOPAED 15 ICS PLC MINUTES OFFICE 06016 [facility]OCK MAGED OUTPATIEN 5 5 AND JANE T VISIT MAGED, 15 PSC MINUTES OFFICE 71982 ROMEROARIANNELor LAFLEUR OUTPATIEN 5 5 N T VISIT NEUROLOGY 15 MINUTES OFFICE 40063 ALLERGY ZIEGLER MAR OUTPATIEN 5 5 PARTNERS T VISIT OF [place] 25 CO MINUTES OFFICE 61137 ALLERGY ZIEGLER MAR OUTPATIEN 5 5 PARTNERS T NEW 45 OF [place] MINUTES CO OFFICE 30383 [facility] OUTPATIEN 5 5 [place] SOP[place] T NEW 30 ORTHOPAED MINUTES ICS PLC OFFICE 25859 DEON HOROWITZ CIARRA OUTPATIEN 5 5 N T VISIT NEUROLOGY 15 MINUTES HOSPITAL INDIO - 5 5 [facility] OUTPATIEN INC T EMERGENCY 45191 INDIO 5 5 [facility] DEPARTMEN INC T VISIT MODERATE SEVERITY HOSPITAL IND[facility] - 5 5 [facility] OUTPATIEN INC T HOSPITAL DEON - 5 5 N [facility]PAT[facility]EN [facility] DE[facility] 5 5 N OUTPATIEN COMMUNTIY T HOSPITA OFFICE 08610 [facility] CIARRA OUTPATIEN 5 5 N T VISIT NEUROLOGY 15 MINUTES HOSPITAL INDIO - 5 5 [facility] OUTPATIEN INC T HOSPITAL [facility] - 5 5 N OUTPATIEN COMMUNTIY T HOSPITA OFFICE 63630 DEON HOROWITZ CIARRA OUTPATIEN 5 5 N T VISIT NEUROLOGY 25 MINUTES HOSPITAL GEORGEARIANNEW - 4 4 N OUTPATIEN COMMUNITY T HOSPITA OFFICE 63888 SAMMI ADAN OUTPATIEN 4 4 [employer] T NEW 30 MINUTES OFFICE 96824 GILLIAN FRENCH OUTPATIEN 4 4 GRE GRE T NEW 45 MINUTES OFFICE 81297 [facility] KAROLINA OUTPATIEN 4 4 PHYSICIAN JAM T VISIT S GROUP 15 MINUTES OFFICE 42031 MAGED MAGED OUTPATIEN 4 4 JANE JANE T VISIT 15 MINUTES HOSPITAL [facility] - 4 4 [facility] OUTPATIEN INC [facility]OSPITAL [facility] - 4 4 [facility] OUTPATIEN INC T OFFICE 51986 MAGED MAGED OUTPATIEN 4 4 JANE JANE T VISIT 15 MINUTES EMERGENCY 57100 AMBER ROLLINS [address] 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, DEN T NEW 30 PSC MINUTES HOSPITAL INDIO - OTHER 4 4 MEM H[facility]P [facility] HOSPITAL INDIO - 4 4 [facility] OUT[facility] INC T OFFICE 91535 [facility] PETJENY OUTPATIEN 4 4 PHYSICIAN JAM T VISIT S GROUP 15 MINUTES HOSPITAL [place] - 4 4 [facility] OUT[facility] INC T EMERGENCY 59120 INDIO 4 4 MEM [facility] DEPARTMEN INC T VISIT LOW/MODER SEVERITY EMERGENCY 60233 GILLIAN RUELAS 4 4 [facility]GENCY [facility] T VISIT MODERATE SEVERITY HOSPITAL [place] - 3 3 [facility] OUTPATIEN [facility] T OFFICE 21031 CHARLES PERERA OUTPATIEN 3 3 DILMA CASILLAS T VISIT 25 MINUTES OFFICE 90713 [facility] PETSHELDON OUTPATIEN 3 3 PHYSICIAN JAM T VISIT S GROUP 15 MINUTES OFFICE 50151 MIAN ORTIZ OUTPATIEN 3 3 MATT T VISIT CHIROPRAC 15 TIC CENTE MINUTES OFFICE 60861 DEON NEAL OUTPATIEN 3 3 N T VISIT NEUROLOGY 15 MINUTES HOSPITAL [place] - 3 3 N OUTPATIEN [facility] T HOSPITA OFFICE 82519 EAR, NOSE SHASHY OUTPATIEN 3 3 AND HARESH T VISIT THROAT 25 SPECIAL [facility] HOSPITAL ENW - 3 3 N OUTPATIEN COMMUNITY T HOSPITA OFFICE 29150 DEON NEAL OUTPATIEN 3 3 N T NEW 45 NEUROLOGY MINUTES OFFICE 61951 EAR, NOSE SHASHY OUTPATIEN 3 3 AND HARESH T VISIT THROAT 25 SPECIAL [facility] ENW - 3 3 N OUTPATIEN COMMUNITY T HOSPITA OFFICE 06413 EAR, NOSE SHASHY OUTPATIEN 3 3 AND HARESH T NEW 45 THROAT MINUTES SPECIAL OFFICE 11114 JACKELYN HAYDEN OUTPATIEN 3 3 JAM JAM T NEW 45 MINUTES OFFICE 34158 CHARLES BARNETTPATIKE 3 3 DILMA CASILLAS T VISIT 15 MINUTES OFFICE 21894 CHARLES SPENCE 3 3 DILMA CASILLAS T VISIT 25 MINUTES HOSPITAL [place] - 3 3 [facility] T EMERGENCY 70769 INDIO 3 3 [facility] T VISIT LIMITED/M INOR PROB EMERGENCY 22353 GILLIAN SELLERS 3 3 EMERGENCY DEPARTMEN SERVICES T VISIT HIGH/URGE NT SEVERITY EMERGENCY 36993 GILLIAN LOZOYA 3 3 EMERGENCY DEPARTMEN SERVICES T VISIT HIGH/URGE NT SEVERITY OFFICE 92281 CHARLES PERERA OUTPATIEN 3 3 DILMA CASILLAS T VISIT 15 MINUTES EMERGENCY 35061 INDIO 2 2 [facility] T VISIT LOW/MODER SEVERITY EMERGENCY 70496 GILLIAN LOUISE 2 2 EMERGENCY DEPARTMEN SERVICES T VISIT HIGH/URGE NT SEVERITY HOSPITAL [place] - 2 2 [facility] OUTPATIEN [facility] T HOSPITAL [place] - 2 2 [facility] T HOSPITAL INDIO - 2 2 [facility] OUTPATIEN [facility] T OFFICE 09608 BROCK GUTIÉRREZ OUTPATIEN 2 2 JAM JAM T VISIT 15 MINUTES OFFICE 20390 BROCK GUTIÉRREZ OUTPATIEN 2 2 JAM JAM T VISIT 15 MINUTES EMERGENCY 20901 ANIYAON 2 2 [facility] HOSPITAL T VISIT LOW/MODER SEVERITY EMERGENCY 39444 GILLIAN SOKACarlotta SELLERS DEPT 2 2 EMERGENCY VISIT SERVICES HIGH SEVERITY& THREAT [facility] ISELAON - 2 2 [facility] INDIO - 2 2 [facility] EMER[facility]ENC[facility] 64155 INDIO 2 2 [facility] T VISIT MODERATE SEVERITY EMERGENCY 83967 GILLIAN GARY 2 2 EMERGENCY III [facility] T VISIT HIGH/URGE NT SEVERITY HOSPITAL [place] - 2 2 [facility] T OFFICE 56084 BROCK GUTIÉRREZ [facility] 2 2 ALFONSO HAMILTON T VISIT 15 MINUTES EMERGENCY 77117 INDIO 2 2 [facility] T VISIT LIMITED/M INOR PROB [facility] INDIO - 2 2 [facility] [address] T OFFICE 11899 ANAYELI TREVIZO OUTPATI 2 2 T NEW 30 MINUTES OFFICE 91913 ANAYELI [place]VIZO [place] [address] 2 T VISIT 15 MINUTES OFFICE [address] T NEW 20 MINUTES [facility]OSPITAL [address] T OFFICE [address] T VISIT 10 MINUTES OFFICE 91015 [facility] OUTPATIEN 2 2 [place] T VISIT ORTHOPAED 15 [facility]CS PLC MINUTES OFFICE 53572 MAGED MAGED OUTPATIEN 1 1 JANE LRAA T VISIT 25 MINUTES HOSPITAL [place] - 1 1 [facility] T OFFICE 23943 [facility] OUTPATIEN 1 1 [place] T NEW 30 ORTHOPAED MINUTES ICS [facility] [place] [facility] [address] [facility] [place] [facility] [address] [facility] EMERGENCY 45956 GILLIAN RUELAS 1 1 EMERGENCY [facility] DEPARTMEN SERVICES T VISIT HIGH/URGE NT SEVERITY [facility]OSPITAL [place] - 1 1 [facility] EM[facility] 47101 INDIO 1 1 [facility] T VISIT LOW/MODER SEVERITY [facility]OSPITAL [facility] - 1 1 [facility] INDIO - 1 1 [facility] EMERGENCY 71638 GILLIAN LARA DEPT 1 1 EMERGENCY VISIT SERVICES HIGH SEVERITY& THREAT FUN EMERGENCY 14555 INDIO 1 1 [facility] T VISIT LOW/MODER SEVERITY HOSPITAL [facility] 28681 GILLIAN GARY 0 0 EMERGENCY [facility] SERVICES T VISIT HIGH/URGE NT SEVERITY [facility] - 0 0 [facility] EMERGENCY 30337 [facility] 0 0 [facility] T VISIT LOW/MODER SEVERITY [facility] 02171 GILLIAN ESPOSITO 0 0 [facility]ERG[facility]Y [facility] SERVICES T VISIT HIGH/URGE NT SEVERITY [facility] 37341 [facility] 0 0 N [facility] MOD[facility]VERITY OFFICE 67507 ESTRELLA MCKENZIE [facility] 0 0 MEDICAL CITLALLI Santos T VISIT SERV 10 [facility] 0 0 [facility] EMERGENCY 15107 [facility] 0 0 [facility] T VISIT MODERATE SEVERITY EMERGENCY 98393 GILLIAN RUELAS, 0 0 EMERGENCY [facility] DEPARTMEN SERVICES T VISIT HIGH/URGE ASSOCIATE NT S SEVERITY [facility] [place] [facility] [address] [facility] EMERGENCY 93511 [facility] 0 0 [facility] DEPARTMEN INC T VISIT HIGH/URGE NT SEVERITY [facility] - 0 0 [facility] 39197 GILLIAN SIMMONS, DEPT 0 0 EMERGENCY [facility] VISIT SERVICES HIGH SEVERITY& ASSOCIATE THREAT S [facility] [place] - 0 0 [facility] 32397 PR BEBE BANEGAS 9 9 MEDICAL ODELL T T VISIT SERV 15 FOUNDATIO MINUTES OFFICE 18332 PR BEBE BANEGAS 9 9 MEDICAL ODELL T T VISIT SERV 15 FOUNDATIO MINUTES OFFICE 09710 PR BEBE BANEGAS 9 9 MEDICAL ODELL T T NEW 30 SERV MINUTES [facility] - 9 9 [facility] [place] [facility] 9 9 [facility] 99671 [facility] 9 9 Y T VISIT [facility] 25 [facility] UNIVERSIT [facility] 9 9 [facility] UNIVERSIT - 9 9 [facility] T OFFICE 83162 [facility] 9 9 Y T VISIT HOSPITAL 15 MINUT[facility] OFFICE 97690 [facility] 9 9 [place] T VISIT 10 MINUTES HOSPITAL UN[facility]ERSIT - 9 9 Y [facility] T OFFICE 86039 [facility] 9 9 [place] T VISIT 15 MINUTES HOSPITAL [facility] - 9 9 Y [facility] T OFFICE 02540 [facility] 9 9 Y T VISIT HOSPITAL 15 MINUTES [facility] [place] - 9 9 [facility] 22932 [facility] 9 9 [place] T VISIT 15 MINUTES OFFICE 49359 [facility] 9 9 Y T VISIT HOSPITAL 25 MINUTES HOSPITAL UN[facility]ERSIT - 9 9 Y [facility] T HOSPITAL UNIVERSIT - 9 9 Y [facility] T OFFICE 16077 [facility] 9 9 [place] L T NEW 45 MINUTES OFFICE 17298 [facility] 9 9 Y T VISIT HOSPITAL 40 MINUTES OFFICE 14411 [facility]VANCED EUNICE, CONSULTAT 9 9 PAIN SOCORRO R ION MEDICIINE NEW/ESTAB PSC PATIENT 60 MIN [facility] 9 [facility] 16900 GLEN, GLEN, OUTPATIEN 8 8 DEVONTE DEVONTE T VISIT 10 MINUTES [facility] 62183 GLEN, GLEN, CONSULTAT 8 8 DEVONTE DEVONTE ION NEW/ESTAB PATIENT 40 MIN [facility] - 8 8 [facility] OUT[facility] T EMERGENCY 00632 [facility] 8 8 [facility] DEPART[facility] T VISIT LIMITED/M INOR PROB OFFICE 67471 ROHINILINNROHINILINN, OUTPATIEN 8 8 LESLEY Abdul T NEW 45 MINUTES OFFICE 68160 FAMILY LANETTEBERRY, OUTPATIEN 8 8 CARE MARIELY T T VISIT ASSOCIATE 15 S MINUTES OFFICE [id number] FAMILY LATRICIA, OUTPATIEN 8 8 CARE R ELIZABETH T VISIT ASSOCIATE 15 S MINUTES OFFICE [id number] FAMILY [place] LEBLANC OUTPATIEN 8 8 CARE G T VISIT ASSOCIATE 15 S MINUTES OFFICE [id number] FAMILY FAMILY OUTPATIEN 8 8 CARE CARE T VISIT ASSOCIATE ASSOCIATE 15 S S MINUTES OFFICE [id number] FAMILY FAMILY OUTPATIEN 8 8 CARE CARE T VISIT ASSOCIATE ASSOCIATE 25 S S MINUTES OFFICE [id number] FAMILY FAMILY OUTPATIEN 8 8 CARE CARE T VISIT ASSOCIATE ASSOCIATE 15 S S MINUTES
--- OUTSIDE RECORDS SUMMARY | 2017-07-29 20:10 | External Medical Summary Rpt | CCD ---
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 Name Role Phone [employer] Unavailable Unavailable INC, [employer] Unavailable Unavailable INC, [employer] [facility] Unavailable Unavailable [place], [facility] [place] MAGED, MAGED Unavailable Unavailable MAGED JANE, MAGED Unavailable Unavailable JANE MAGED JANE, MAGED Unavailable Unavailable JANE DIANA MATT, Unavailable Unavailable Kenya ARNETT, Unavailable Unavailable Kenya ORTIZ ARMS DON, ARMS DON Unavailable Unavailable [facility] Unavailable Unavailable [facility] Unavailable Unavailable MED[facility] GROUP, [facility] BEINEKE LILLIE, BEINEKE Unavailable Unavailable LILLIE SILVER TER, SILVER TER Unavailable Unavailable ADDISON, ALACIA L, Unavailable Unavailable ADDISON, ALACIA L [facility] Unavailable Unavailable [facility]ORATORIES, [facility] Unavailable Unavailable LAB[facility]ATORIES, [facility]available Un[facility] Unavailable Unavailable [facility], [facility] Unavailable Unavailable GUADALUPE FRA, GUADALUPE FRA Unavailable Unavailable GALICIA CAR, GALICIA Unavailable Unavailable CAR [facility] & Unavailable Unavailable SLEEP CON[facility], [facility] SLEEP CONSU [facility], [facility] Unavailable Unavailable [facility], Unavailable Unavailable [facility] Unavailable [facility] CHESTNUT, [facility] Unavailable Unavailable [facility] & Unavailable Unavailable DUBILIER, [facility] Un[facility] Unavailable Unavailable [facility] Unavailable Unavailable PHYSICIAN PRA, [facility] PHYSICIAN PR[facility], Unavailable Unavailable [facility] RENDON T, RENDON T Unavailable Unavailable AMIN, AMIN Unavailable Unavailable AMIN GRAEME, AMIN GRAEME Unavailable Unavailable Kenya LEBLANC, BENJI, Unavailable Unavailable Kenya CYR, KLARISSA Unavailable Unavailable KLARISSA KASSANDRA, Unavailable Unavailable KLARISSA KASSANDRA EUNICE CYR, Unavailable Unavailable KLARISSA, EUNICE [place] [facility] Unavailable Unavailable [facility] MARTI, MARTI Unavailable Unavailable MARTI GRE, MARTI Unavailable Unavailable GRE [facility] Unavailable Unavailable ASSOCIAT, [facility] DAUKAS ROSALES, DAUKAS Unavailable [...] MIKAL ELVIE RUELAS, Unavailable Unavailable ELVIE RUELAS [facility] Unavailable Unavailable HOSPITA, [facility] Unavailable Unavailable HOSPITA, [facility], Unavailable Unavailable [facility] CHARLES PERERA MD, Unavailable Unavailable ODELL PEREZ MD, Unavailable Unavailable ODELL BANEGAS GRAY ROB Unavailable Unavailable GREGONIParul GREGONIParul Unavailable Unavailable NIKKI RHO, NIKKI Unavailable Unavailable RHO NIKKI, RUBÉN G, Unavailable Unavailable NIKKI, RUBÉN G CEVALLOS, CEVALLOS Unavailable Unavailable HARPEL SONJA, HARPEL Unavailable Unavailable SONJA GARRETT, GARRETT Unavailable Unavailable LESLEY HERNÁNDEZ, Unavailable Unavailable LESLEY HERNÁNDEZ [facility] Unavailable Unavailable INC, [facility] Unavailable Unavailable HOSPITAL, [facility] Unavailable Unavailable HOSPITAL P, [facility] P PATTERSON MANNY, PATTERSON MANNY Unavailable Unavailable [facility], Unavailable Unavailable [facility] STACI III, SMALL Unavailable Unavailable III FRACISCO, Unavailable Unavailable FRACISCO LEE, ROSA [facility] Unavailable Unavailable RYNE III JAYESH, Unavailable Unavailable RYNE III ADRIANA RONDON, Unavailable Unavailable ADRIANA MICHELE [facility] Unavailable Unavailable GROUP PS, [facility] Unavailable Unavailable [facility], [facility], Unavailable Unavailable [facility] KOSTELIC, LAURIE K, Unavailable Unavailable KOSTELIC, LAURIE K [facility] Un[facility] Unavailable Unavailable HOLDINGS, [facility], Unavailable Unavailable [facility] JAIR JR, JAIR JR Unavailable Unavailable JAIR JR DWI, JAIR Unavailable Unavailable JR DWI JAIR, YSABEL E, Unavailable Unavailable JAIR, YSABEL E [facility] CONTROL CL[facility], Unavailable Unavailable [facility], [place] ORDER CONTROL CLERK BLOOD BANK, [facility] LOCKSTADT, LOCKSTADT Unavailable Unavailable DUONG ELIU, DUONG Unavailable Unavailable ELIU CITLALLI MCKENZIE, JONAH, Unavailable Unavailable THOMAS ROLAND Unavailable Unavailable [facility], Unavailable Unavailable [facility] GRE [facility], Unavailable Unavailable [facility] Unavailable Unavailable SERVICES, [facility] RIA WINSLOW, RIA Unavailable Unavailable [place] HAYDEN JAM, Unavailable Unavailable HAYDENALICIA HAMILTON, Unavailable Unavailable HAYDENALICIA LOPEZ, RICHARD Unavailable Unavailable JOHN MULBERRY MARIELY T, Unavailable Unavailable MULBERRY MARIELY T [facility] Unavailable Unavailable [facility], [facility] Unavailable Unavailable [facility] Maryellen ROME, Unavailable Unavailable Maryellen ROME JOHN, [...] Unavailable SOKAN BAB, SOKAN BAB Unavailable Unavailable [facility], Unavailable Unavailable [facility] LILLIE [facility] Unavailable Unavailable EMERGENCY PHYS, [facility] Unavailable Unavailable EMERGENCY SERVI, [facility], Unavailable Unavailable [facility] ARCHER KAHLIL, Unavailable Unavailable ARCHER KAHLIL PARMJIT ELIU, PARMJIT Unavailable Unavailable [facility], [facility]available Unavailable [facility], [facility] Unavailable Unavailable [facility] Unavailable [...] 06-27-2017 [facility] LAR & SLEEP UNSPECIFIED CONSU [id number] ENCOUNTER 06-27-2017 [facility] FOR LAR & SLEEP PREPROCEDUR CONSU AL CARIOVASCUL AR EXAM J301 ALLERGIC 06-22-2017 [facility] RHINITIS [facility] DUE TO [place] POLLEN J3081 ALLERG 06-22-2017 [facility] RHINITIS [facility] D/T ANIMAL [place] CAT DOG HAIR & DANDER J3089 OTHER 06-22-2017 [facility]GIC [facility] RHINITIS [place] E785 HYPERLIPIDE 06-17-2017 [facility] UNSPECIFIED HOSPITAL N390 URINARY 06-17-2017 [facility] INFECTION HOSPITAL SITE NOT SPECIFIED R5383 OTHER 06-17-2017 [facility] L98991 ENCOUNTER 06-17-2017 [facility] OTHER [facility] PREPROCEDUR HOSPITAL AL EXAMINATION R0602 SHORTNESS 06-03-2017 [facility] [place] OF BREATH RADIOLOGY R072 PRECORDIAL 06-03-2017 [facility] [place] PAIN RADIOLOGY M1711 UNILATERAL 06-02-2017 [facility] OSTEOARTHRI S PSC TIS RIGHT KNEE E875 HYPERKALEMI 05-31-2017 [facility] A LAR & SLEEP CONSU A048 OTHER 05-06-2017 [facility] SPECIFIED [facility] BACTERIAL [facility]OSPITAL INTESTINAL INFECTIONS R05 COUGH 05-03-2017 [facility] T08348 MIGRAINE 04-15-2017 NEW UNS NOT [place] INTRACT [...] & CAUSE OF DZ DUBILIER CLASSIFIED ELSW [id number] UNSPECIFIED 02-02-2017 [facility] UNCOMPLICAT HOSPITAL ED K317 POLYP OF 02-02-2017 [facility] & DUODENUM DUBILIER K3189 OTHER 02-02-2017 [facility] DISEASES OF CLAIRE & STOMACH DUBILIER AND DUODENUM R079 CHEST PAIN 02-02-2017 [place] UNSPECIFIED [facility] R1310 DYSPHAGIA 02-02-2017 [facility] UNS[facility] L75365 OTHER LONG 02-02-[address] [place] TERM [facility]ITY CURRENT HOSPITAL DRUG THERAPY G479 SLEEP 01-25-2017 [facility] DISORDER [facility] UNSPECIFIED HOSPITAL R0683 SNORING 01-25-2017 [facility] J209 ACUTE 01-09-2017 [facility] BRONCHITIS N EMERGENCY UNSPECIFIED PHYS R509 FEVER 01-09-2017 [facility] [place] UNSPECIFIED RADIOLOGY R51005 PERSONAL 01-09-2017 [facility] HISTORY OF [facility] CALCULI Z886 ALLERGY 01-09-2017 [facility] STATUS TO [facility] ANALGESIC HOSPITAL AGENT STATUS R1013 EPIGASTRIC 12-31-2016 [facility] R33787 UNSPECIFIED 12-28-2016 [facility]HMA LAR & SLEEP WITH ACUTE CONSU EXACERBATIO N R0600 DYSPNEA 12-13-2016 [facility] UNSPECIFIED [facility]ALTH [place] R9439 ABNORMAL 12-13-2016 EPISCOPAL RESULT OT HEALTH CARDIOVASCU MEDICAL LR FUNCTION [...] AND OF VULVA MAGED, AND VAGINA PSC T00875 CHRONIC 11-02-2016 [facility] AND MIGRAINE MAGED, W/O AURA PSC INTRACT W/O STAT MIGR J0190 ACUTE 11-02-2016 [facility] AND SINUSITIS MAGED, UNSPECIFIED PSC Z6832 BODY MASS 11-02-2016 [facility] AND INDEX BMI MAGED, 32.0-32.9 PSC ADULT R71595 PRESENCE OF 10-05-2016 [facility] 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 X60336 PRESENCE OF 10-05-2016 [facility] LEFT ORTHOPAEDIC ARTIFICIAL S PSC KNEE JOINT J680 BRONCHITIS 09-28-2016 [facility] & PNEUMONIT PHYSICIANS, D/T CHEM [facility] GASE FUME VAPOR K3622GM TOXIC 09-28-2016 [facility] P ACCIDENTAL INIT ENC Z48402 UNS PLACE 09-28-2016 [facility] P PLACE OF OCCUR EXT G4489 OTHER 09-08-2016 [facility] HEADACHE PARTNERS OF SYNDROME [place] J0180 OTHER ACUTE 09-08-2016 [facility] SINUSITIS [facility] [place] J4530 MILD 09-08-2016 [facility] PERSISTENT PART[facility] OF ASTHMA [place] UNCOMPLICAT ED O22059 SPONDYLOSIS 08-05-2016 [facility] W/O MEDICAL MYELOPATH/R IMAGING ASS ADICULPATHY LS RGN M5126 OTH 08-05-2016 [facility] INTERVERTEB MEDICAL RAL DISC IMAGING ASS DISPLACEMEN T LUMBAR RGN M1712 UNILATERAL 07-22-2016 [facility] OSTEOARTHRI S PSC TIS LEFT KNEE H1013 ACUTE 07-16-2016 [facility] TIS BILATERAL Z1231 ENCOUNTER 05-12-2016 [facility] SCREENING MEDICAL MAMMO MALIG IMAGING ASS NEOPLASM BREAST N951 MENOPAUSAL 04-29-2016 [facility] CLIMACTERIC GROUP STATES W28653 ENCOUNTER 04-29-2016 [facility] SOCIAL SCIENCES RESEARCH SCIENTIST EXAM PHYSICIANS GENERAL RTN GROUP W/O ABNORMAL FIND Z1212 ENCOUNTER 04-29-2016 [facility] SCREENING PHYSICIANS MALIGNANT GROUP NEOPLASM RECTUM Z7253 HIGH RISK 04-29-2016 [facility] BISEXUAL PHYSICIANS BEHAVIOR GROUP G8918 OTHER ACUTE 04-24-2016 [facility] PHYSICIANS, POSTPROCEDU PLLC RAL PAIN Y20905 PAIN IN 04-24-2016 [facility] LEFT KNEE MEM HOS[facility] INC M179 OSTEOARTHRI 04-14-2016 [place] TIS OF KNEE ANESTHESIA ASSOCIAT UNSPECIFIED Z0001 ENCOUNTER 04-06-2016 [facility] MEDICAL INCORPORAT EXAM W/ABNORMAL FIND M1611 UNILATERAL 03-30-2016 [facility] OSTEOARTHRI [facility] TIS RIGHT HIP H6000 ABSCESS OF 02-25-2016 [facility] EXTERNAL PHYSICIANS, EAR PLLC UNSPECIFIED EAR H6003 ABSCESS OF 02-25-2016 [facility] EXTERNAL [facility] EAR INC BILATERAL W47852S OTH TEAR 12-17-2015 [facility] MED ORTHOPAEDIC MENISCUS S PLC CURR INJ LT KNEE SBSQT ENC J029 ACUTE 12-02-2015 [facility] UNSPEC[facility] J4520 MILD 11-28-2015 [facility] INTERMITTEN PARTNERS OF T ASTHMA [place] UNCOMPLICAT ED Z8739 PERSONAL HX 09-22-2015 [facility] MUSCULOSKEL INC SYS&CONNECT V TISS R91295 CHONDROMALA 08-19-2015 [facility] ANDREA LEFT COMMUNTIY KNEE HOSPITA C19941J OTH TEAR 08-19-2015 [facility] MED ANESTHESIA MENISCUS GROUP PS CURR INJ LT KNEE INIT ENC S71758 MIGRAINE 07-04-2015 [facility] W/O AURA NEUROLOGY INTRACT W/O STAT MIGRAINOSUS 6870 ALLERGIC 07-02-2015 [facility] RHINITIS PARTNERS OF DUE TO [place] POLLEN 4772 ALLERGIC 07-02-2015 [facility] RHINITIS PARTNERS OF DUE TO [place] ANIMAL HAIR AND DANDER 4778 ALLERGIC 07-02-2015 [facility] RHINITIS PARTNERS OF DUE TO [place] OTHER ALLERGEN 24206 ASTHMA, 06-13-2015 [facility] UNSPECIFIED PARTNERS OF , [place] UNSPECIFIED STATUS 7840 HEADACHE 06-13-2015 [facility] [place] 4720 CHRONIC 05-23-2015 [place] [address] OSTEOARTHRO 05-21-2015 [facility] [place] SIS UNSPEC ORTHOPAEDIC WHETHER S PLC GEN/LOC LOWER LEG 42361 CHRONIC 04-03-2015 [facility] MIGRAINE NEUROLOGY W/O AURA W/O INTRACTABLE W/O SM V7612 OTHER 03-31-2015 [facility] SCREENING MEDICAL MAMMOGRAM IMAGING ASS 6272 SYMPTOMATIC 03-21-2015 CHARLES PERERA MD MENOPAUSAL/ FEMALE CLIMACTERIC STATES V692 PROBLEMS 03-21-2015 CHARLES Bojorquez RELATED TO DILMA PEREZ HIGH-RISK SEXUAL BEHAVIOR V7231 ROUTINE 03-21-2015 CHARLES Bojorquez GYNECOLOGIC DILMA PEREZ AL EXAMINATION V7641 SCREENING 03-21-2015 HCAR[facility] Bojorquez FOR DILMA PEREZ MALIGNANT NEOPLASM OF THE RECTUM 4019 UNSPECIFIED 03-08-2015 [facility] ESSENTIAL [facility] HYPERTENSIO INC N 6820 CELLULITIS 03-08-2015 [facility] AND ABSCESS MEM HOSP OF FACE INC 64639 NEW DAILY 03-06-2015 [facility] PERSISTENT COMMUNTIY HEADACHE HOSPITA 7920 NONSPECIFIC 03-06-2015 [facility] ABNORMAL CLAIRE & FINDING IN [facility] 24537 PAIN IN 03-04-2015 [facility] JOINT, COMMUNTIY LOWER LEG HOSPITA V571 OTHER 02-07-2015 [facility] PHYSICAL MEM HOS[facility] THERAPY INC 56089 MIGRAINE 02-04-2015 [facility] [place] UNSP W/O RADIOLOGY INTRACT W/O STATUS MIGRAINOSUS 7231 CERVICALGIA 01-29-2015 [facility] 94924 PRIMARY 10-01-2014 [facility] LOCALIZED TECHNOLOGIE OSTEOARTHRO S INC SIS LOWER LEG 7295 PAIN IN 10-01-2014 [facility] SOFT TECHNOLOGIE TISSUES OF S INC LIMB 92890 PAIN IN 09-10-2014 [facility] [place] JOINT RADIOLOGY [place] REGION AND THIGH 78017 DISORDER OF 09-10-2014 [employer] BONE AND MSO, [employer] CARTILAGE UNSPECIFIED 49609 GENU VARUM 09-10-2014 [employer], [employer] V5869 LONG-TERM 09-10-2014 [facility] (CURRENT) COMMUNITY USE OF HOSPITA OTHER MEDICATIONS 88736 UNSPECIFIED 08-17-2014 [facility] SUBJECTIVE GRE VISUAL DISTURBANCE 18112 OTHER 08-17-2014 [facility] VISUAL GRE DISTORTIONS AND ENTOPTIC PHENOMENA 69209 UNSPECIFIED 08-17-2014 [place] [address] SCLERAL 08-17-2014 [facility] ECTASIA GRE 22403 CHONDROMALA 08-01-2014 [facility] ANDREA PHYSICIANS GROUP V0481 NEED 07-16-2014 [facility] PROPHYLACTI PHARMACY C #591 VACCINATION &INOCULATIO N FLU 26951 RESTLESS 05-16-2014 MAG[facility] JANE LEGS SYNDROME 03809 INSOMNIA 05-16-2014 [facility]ANE UNSPECIFIED 7172 DERANGEMENT 04-08-2014 [facility] OF MEM HOSP POSTERIOR INC HORN OF MEDIAL MENISCUS 70105 DERANGEMENT 04-08-2014 [facility] OF MEM HOSP ANTERIOR INC HORN OF LATERAL MENISCUS 28765 PLICA 04-08-2014 [facility] SYNDROME PHYSICIANS GROUP 8360 TEAR MEDIAL 04-08-2014 [facility] CARTILAGE PHYSICIANS OR MENISCUS GROUP KNEE CURRENT 8361 TEAR 04-08-2014 [facility] LATERAL MEM HOSP CARTILAGE INC OR MENISCUS KNEE CURRENT 2724 OTHER AND 04-03-2014 [facility] UNSPECIFIED [facility] P HYPERLIPIDE STEPH 6829 CELLULITIS 03-28-2014 MAGED JANE AND ABSCESS OF UNSPECIFIED SITE 40063 ABDOMINAL 03-28-2014 [facility] PAIN OTHER SPECIFIED SITE 6869 UNSPEC 03-05-2014 [facility] LOCAL COMMUNITY INFECTION HOSPITA SKIN&SUBCUT ANEOUS TISSUE 7048 OTHER 03-05-2014 [facility] SPECIFIED COMMUNITY DISEASE OF HOSPITA HAIR&HAIR FOLLICLES 00221 TOXIC 03-05-2014 [facility] EFFECT OF COMMUNITY OTHER HOSPITA SUBSTANCES 9953 ALLERGY 03-05-2014 [facility] UNSPECIFIED N EMERGENCY NOT SERVI ELSEWHERE CLASSIFIED 47114 DEGEN 03-04-2014 [facility] LUMBAR/LUMB MEDICAL OSACRAL IMAGING ASS INTERVERTEB RAL DISC 7242 LUMBAGO 03-04-2014 [facility] 8472 LUMBAR 03-04-2014 [facility] SPRAIN AND N EMERGENCY STRAIN PHYS 90510 CONTUSION 03-04-2014 [facility] OF KNEE N EMERGENCY PHYS E8888 OTHER FALL 03-04-2014 [facility] N EMERGENCY PHYS 25381 SYNOVIAL 02-22-2014 [facility] CYST OF PHYSICIANS POPLITEAL GROUP SPACE 63571 OTHER 01-25-2014 [place] MALAISE AND ORDER CONTROL CLERK BLOOD BANK, PSC FATIGUE 37856 LOSS OF 01-25-2014 [place] WEIGHT ORDER CONTROL CLERK BLOOD BANK, PSC 6279 UNSPECIFIED 12-27-2013 [facility] MENOPAUSAL& INC POSTMENOPAU GRIS DISORDER 36165 EFFUSION OF 12-24-2013 [facility] LOWER LEG MEDICAL JOINT IMAGING ASS V148 PERSONAL 10-18-2013 [facility] ALLERGY OTH INC SPEC MEDICINAL AGTS 66563 MASTODYNIA 06-19-2013 [facility] 6101 DIFFUSE 06-14-2013 CHARLES PERERA MD MASTOPATHY 32508 OTHER SIGN 06-14-2013 CHARLES PERERA MD IN BREAST 7243 SCIATICA 06-06-2013 [facility] [facility] 7393 NONALLOPATH 06-06-2013 [place] IC LESION CHIROPRACTI OF LUMBAR C CENTE REGION NEC 7394 NONALLOPATH 06-06-2013 [place] IC LESION CHIROPRACTI OF SACRAL C CENTE REGION NEC 7395 NONALLOPATH 06-06-2013 [place] IC LESION CHIROPRACTI OF PELVIC C CENTE REGION NEC 36645 CHRONIC 05-18-2013 [facility] MIGRAINE NEUROLOGY W/O W/INTRACTAB LE W/O SM 470 DEVIATED 04-18-2013 [facility] NASAL COMMUNITY SEPTUM HOSPITA 4739 UNSPECIFIED 04-18-2013 [facility] SINUSITIS ANESTHESIA GROUP PS 4780 HYPERTROPHY 04-18-2013 [facility] OF NASAL COMMUNITY TURBINATES HOSPITA 35897 OTHER 04-18-2013 [facility] DISEASES OF COMMUNITY NASAL HOSPITA CAVITY AND SINUSES V7283 OTHER 04-12-2013 [facility] SPECIFIED COMMUNITY PRE-OPERATI HOSPITA VE EXAMINATION 7391 NONALLOPATH 03-02-2013 [place] IC LESION CHIROPRACTI OF CERVICAL C CENTE REGION NEC 78287 CHRONIC 2013 [facility] TENSION JAM TYPE HEADACHE 45617 SENILE 2013 [facility] RETICULAR JAM DEGENERATIO N PERIPHERAL RETINA 18118 DECREASED 12-08-2012 [place] [address] CONTUSION 11-11-2012 [facility] BACK EMERGENCY SERVICES 7244 THORACIC/JANINE 09-01-2012 [facility] MBOSACRAL EMERGENCY NEURITIS/RA SERVICES DICULITIS UNSPEC 7202 SACROILIITI 08-07-2012 [place] S NOT CHIROPRACTI ELSEWHERE C CENTE CLASSIFIED 20500 DISRUPTION 08-03-2012 [facility] EXTERNAL REFERNCE OPERATION LABORATORIE SURGICAL S WOUND 7933 NONSPECIFIC 07-19-2012 [place] ABN FINDNG CHIROPRACTI RAD&OTH C CENTE EXAM BILARY TRCT 3558 UNSPECIFIED 07-04-2012 [facility] MONONEURITI S OF LOWER LIMB 8479 SPRAIN AND 07-04-2012 [facility] ALFONSO STRAIN OF UNSPECIFIED SITE OF BACK 5589 OTH&UNSPEC 05-16-2012 [place] NONINFECTIO EMERGENCY US SERVICES GASTROENTER ITIS&COLITI S 93944 ABDOMINAL 05-16-2012 [facility] [place] PAIN, RADIOLOGY UNSPECIFIED SITE V145 PERSONAL 05-16-2012 [facility] HISTORY OF COMMUNITY ALLERGY TO HOSPITAL NARCOTIC AGENT 7094 FOREIGN 05-01-2012 [place] BODY EMERGENCY GRANULOMA SERVICES SKIN&SUBCUT ANEOUS TISSUE 7296 RESIDUAL 05-01-2012 [facility] FOREIGN MEDICAL BODY IN IMAGING ASS SOFT TISSUE 8930 OPEN WOUND 05-01-2012 [place] TOE WITHOUT EMERGENCY MENTION SERVICES COMPLICATIO N E9179 OTHER 05-01-2012 [place] STRIKING EMERGENCY AGAINST SERVICES W/WO SUBSEQUENT FALL V065 NEED 05-01-2012 [facility] PROPHYLACTI MEM HOSP C INC VACCINATION W/TETANUS-D [facility] 4619 ACUTE 01-05-2012 [facility] [place] SINUSITIS, UNSPECIFIED 4779 ALLERGIC 01-05-2012 [facility] [place] RHINITIS CAUSE UNSPECIFIED 40289 NON-HEALING 11-19-2011 [facility] WOUND NEC 86054 DISRUPTION 11-16-2011 [facility] UNSPECIFIED 67007 PAIN IN 10-11-2011 [facility] [place] JOINT, ORTHOPAEDIC ANKLE AND S PLC FOOT 6918 OTHER 09-17-2011 [facility] ATOPIC DERMATITIS AND RELATED CONDITIONS 7820 DISTURBANCE 09-10-2011 [place] OF SKIN MEDICAL SENSATION IMAGING ASS E8889 UNSPECIFIED 06-22-2011 [facility] [place] FALL RADIOLOGY 8792 OPEN WOUND 04-20-2011 [facility] ABD WALL COMMUNITY ANT WITHOUT HOSPITAL MENTION COMP 59455 OTHER 04-20-2011 [facility] [place] POSTOPERATI RADIOLOGY VE INFECTION NEC 73271 UNSPECIFIED 03-10-2011 [place] URETHRITIS EMERGENCY SERVICES 3569 UNSPEC 02-02-2011 [facility] HEREDIT&IDI EPISCOPAL OPATHIC HOSP PERIPHERAL NEUROPATHY 51768 CALCANEAL 01-14-2011 [facility] [place] SPUR RADIOLOGY 18019 HEMATURIA 01-12-2011 [place] UNSPECIFIED EMERGENCY SERVICES 7880 RENAL COLIC 01-12-2011 [facility] 9176 FOOT&TOE 08-31-2010 [facility] SUP FB W/O COMMUNITY SOL OPN HOSPITA WND&W/O MENTION INF 20126 ERYTHEMA 06-03-2010 [facility] DUE TO BURN EMERGENCY OF BREAST SERVICES 95274 ERYTHMA DUE 06-03-2010 [facility] BURN [facility] W[place] EXCL[place] INC BREAST&[place] [address] ERYTHEMA 06-03-2010 [facility] DUE TO BURN EMERGENCY OF SERVICES ABDOMINAL WALL 13099 ERYTHEMA 06-03-2010 [facility] DUE TO BURN EMERGENCY SERVICES UNSPECIFIED SITE LOWER LIMB 42135 ERYTHEMA 06-03-2010 [facility] DUE TO BURN EMERGENCY OF KNEE SERVICES 66323 ERYTHEMA 06-03-2010 [facility] DUE TO BURN MEM HOSP OF THIGH INC 515 POSTINFLAMM 05-04-2010 [facility] [place] ATORY RADIOLOGY PULMONARY FIBROSIS 7962 ELEVATED BP 05-03-2010 [facility] WITHOUT DX HOSPITA HYPERTENSIO N 8921 OPEN WOUND 05-03-2010 [facility] OF FOOT EMERGENCY EXCEPT TOE SERVICES ALONE COMPLICATED E915 FOREIGN 05-03-2010 [facility]ODY [facility] ACCIDENTALL SERVICES Y ENTERING OTHER ORIFICE 7862 COUGH 01-28-2010 [facility] [place] RADIOLOGY 06700 REFLUX 12-09-2009 [facility] ESOPHAGITIS ROSA WALLER 49829 ATROPHIC 12-09-2009 PATHOLOGY & GASTRITIS CYTOLOGY WITHOUT LAB MENTION OF HEMORRHAGE 32293 UNS 12-09-2009 [place] GASTRITIS&G ANESTHESIA ASTRODUODIT GROUP PSC IS W/O MENTION HEMORR 5533 DIAPHRAGMAT 12-09-2009 [facility] W/O COMM[facility] MENTION HOSPITAL OBSTRUCTION /GANGREN 82414 CHEST PAIN 12-09-2009 [facility] UNSPECIFIED SRIDHAR ROSA 49492 OTHER CHEST 12-09-2009 [facility] 67352 NAUSEA 12-09-2009 [facility] 96196 ABDOMINAL 12-09-2009 [facility] PAIN, NKLIN, EPIGASTRIC ROSA 79909 ESOPHAGEAL 11-28-2009 [facility] PROF SERV 38575 ABDOMINAL 11-28-2009 [facility], [facility] 67554 UNSPECIFIED 10-06-2009 [facility]THROPATHY [facility] , LOWER LEG 74715 OSTEOARTHRO 06-13-2009 [facility] [place] S UNSPEC RADIOLOGY WHETHER GEN/LOC UNSPEC SITE 99444 DIARRHEA 05-09-2009 [facility] 8793 OPEN WOUND 05-09-2009 [facility] W[facility] ANTERIOR COMPLICATED 9597 INJURY 04-22-2009 [facility] [place] OTHER&UNSPE RADIOLOGY CIFIED KNEE LEG ANKLE&FOOT 7078 CHRONIC 04-03-2009 [facility] OTHER SPECIFIED SITE 6822 CELLULITIS 04-02-2009 [facility], AND ABSCESS [place] L OF TRUNK 70606 OTHER 03-01-2009 [facility] CARDIAC [facility] DYSRHYTHMIA S 7851 PALPITATION 03-01-2009 [facility] 5718 OTHER 02-26-2009 [facility] LIVER DISEASE 8795 OPEN WOUND 02-26-2009 [facility], OF [place] L ABDOMINAL WALL LATERAL COMPLICATED V762 SCREENING 02-05-2009 PATHOLOGY & FOR CYTOLOGY [facility] LAB NEOPLASM OF THE CERVIX 8794 OPEN WOUND 12-25-2008 [facility] OF ABD WALL [place] INC LATERAL WITHOUT MENTION COMP 02062 CHRONIC 11-20-2008 [facility] DUE TO PAIN TRAUMA MEDICIINE PSC 7246 DISORDERS 11-20-2008 [facility] OF SACRUM PAIN MEDICIINE PSC 7265 ENTHESOPATH 11-20-2008 [facility] Y OF HIP PAIN REGION MEDICIINE PSC 62365 PAIN IN 10-30-2008 [facility] [place] JOINT, RADIOLOGY SHOULDER REGION 3550 LESION OF 09-13-2008 [facility] PSC 98998 DISPLCMT 08-20-2008 [facility] [place] LUMBAR RADIOLOGY 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 7213 LUMBOSACRAL 05-03-2008 LESLEY 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 6927 [facility] 03-20-2008 NIDIO DERMATITIS& [facility] OTH ECZEMA INC DUE SOLAR RADIATION 62978 OTHER 03-15-2008 HARRIES, AMYLOIDOSIS LESLEY Abdul 3384 CHRONIC 03-15-2008 HARRIES, PAIN LESLEY Abdul SYNDROME 7292 UNSPECIFIED 02-12-2008 [facility] NEURITIS AND RADICULITIS 7226 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-2007 [facility] INTERVERTEB RAL DISC SITE UNSPEC 39157 SPONDYLOSIS 11-21-2007 [facility] SITE [...] DOS Code Location Performer Comment PROF SVBURKE 58994 ALLERGY ZIEGLER ALLG 7 PARTNERS IMMNTX X OF [place] W/PRV CO ALLGIC XTRCS NJXS COMPREHEN 54060 [place] JUDY SIVE 7 [facility] PANEL COLLECTIO 62787 [facility] N VENOUS 7 [facility] VENIPUNCT URE THROMBOPL 00262 [facility] ASTIN 7 [facility] PARTIAL PLASMA/WH OLE BLOOD CUL 79968 [facility] PRSMPTV 7 [facility] ORGANISM SCRN W/COLONY ESTIMJ PROTHROMB 61591 [facility] IN TIME [address] [place] [address] [place] [address] [facility] THYROID [address] [place] [place] [address] NG HORMONE TSH LIPID 06447 [facility] PANEL [address] [place] [address] ECG 51220 [facility] ROUTINE [address] [place] [address] HOSPITAL W/LEAST 12 LDS TRCG ONLY W/O I&R URNLS DIP [address] STICK/TAB HOSPITAL HOSPITAL LET REAGENT AUTO MICROSCOP Y HEMOGLOBI 51686 [facility] N [address] [place] [address] HOSPITAL STEFANO A1C BLOOD 64123 [facility] COUNT [address] [place] [address] HOSPITAL AUTOMATED PROF [facility] 43668 ALLERGY ZIEGLER ALLG 7 PARTNERS IMMNTX X OF [place] W/PRV CO ALLGIC XTRCS NJXS CT THORAX 58178 [facility] [place] GARRETT 7 RADIOLOGY W/CONTRAS T MATERIAL RADIOLOGI 93287 [facility] MARTI C 7 EXAMINATI ORTHOPAED ON KNEE 3 ICS PSC VIEWS COLLECTIO 97101 [facility] N VENOUS 7 [facility] VENIPUNCT URE BASIC 41292 [facility] METABOLIC [address] [place] [address] [place] [address] JUDY KIM HPYLORI 7 [facility] [place] [address] JUDY KIM DIFFUSING [address] [place] [address] HOSPITAL PLETHYSMO 15517 [facility] GRAPHY [address] [place] [address] HOSPITAL VOLUMES W/WO AIRWAY RESIST BRNCDILAT 53662 JUDY KIM RSPSE [address] [place] [address] PRE&POST- BRNCDILAT ADMN SPMTRY 26025 YAMIL TAYLOR W/VC 7 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 Y CLARA PRA W/WO MXML VOL VNTJ COLLECTIO 26529 YAMIL Laguerre VENOUS 7 [facility] MEDICAL VENIPUNCT [facility] URE BLOOD 27178 YAMIL LOBO COUNT 7 [facility]IONAL [facility] MEDICAL AUTO&AUTO CENTE CENTE DIFRNTL WBC PROF [facility] 89565 ALLERGY ZIEGLER ALLG 7 PARTNERS IMMNTX X OF [place] W/PRV CO ALLGIC XTRCS NJXS ANTIBODY 64252 YAMIL LOBO BLASTOMYC 7 REGIONAL [facility] CENTE CENTE ANTIBODY 67969 YAMIL LOBO ASPERGILL 7 [facility] CENTE ANTIBODY 05143 YAMIL LOBO HISTOPLAS 7 REGIONAL REGIONAL [facility] CENTE PREPJ& 98648 ALLERGY ZIEGLER ALLERGEN 7 PARTNERS IMMUNOTHE OF [place] RAPY CO 1/MERCHANDISING REPRESENTATIVE ANTIGEN PROF SVCS 01039 ALLERGY ZIEGLER ALLG 7 PARTNERS IMMNTX X OF [place] W/PR[place] [address] [place] [facility] SURG [address] [place] [address] GROSS&MIKAL ROSCOPIC EXAM IMHISTOCH 97953 [facility] KIM EM/CYTCHM [address] [place] [address] ANTIBODY STAIN PROCEDURE PRESSURIZ 33856 JUDY KIM ED/NONPRE [address] [place] [address] INHALATIO N TREATMENT EGD 17305 [facility] TRANSORAL [address] [place] [address] SINGLE/MU LTIPLE POLYSOM 81650 GRAEME AMIN AMIN 6/>YRS 7 MD SLEEP 4/> CONSULTIN ADDL G SRV [place] ATTND POLYSOM 37036 [facility] 6/>YRS 7 [facility] SLEEP 4/> HOSPITAL HOSPITAL ADDL [place] ATTND INJECTION J1030 [facility] KIDD 7 METHYLPRE ORTHOPAED DNISOLONE ICS PSC ACETATE 40 MG ARTHROCEN 38078 CHAST[facility] KIDD TESIS 7 ASPIR&/IN ORTHOPAED J MAJOR ICS PSC JT/BURSA W/O US RADIOLOGI 88937 CHASTITY KIDD C 7 EXAMINATI ORTHOPAED ON KNEE 3 ICS PSC VIEWS PROF SVCS 02769 ALLERGY ZIEGLER ALLG 7 PARTNERS IMMNTX X OF [place] W/PRV CO ALLGIC XTRCS NJXS RADIOLOGI 67841 [facility] EXAM [address] VIEWS FRONTAL&L ATERAL IAADIADOO 64565 [facility] 7 [facility] PRESSURIZ 76873 [facility] ED/NONPRE 7 [facility] INHALATIO N TREATMENT BASIC 53333 [facility] B[facility] METABOLIC 7 [facility] PANEL INC INC CALCIUM TOTAL COLLECTIO 79803 [facility] N VENOUS 7 [facility] BLOOD INC INC VENIPUNCT URE COLLECTIO 05201 EPISCOPAL EPISCOPAL N VENOUS 7 [facility] BLOOD [facility] VENIPUNCT URE LOCM Q9967 EPISCOPAL EPISCOPAL 300-[address] [facility] MG/ML [facility] IODINE CONCENTRA TION PER ML INJECTION J3010 EPISCOPAL EPISCOPAL FENTANYL 7 [facility] CITRATE [facility] 0.1 MG INTRDUCR/ C1894 EPISCOPAL EPISCOPAL SHEATH 7 [facility] NOT GUID [facility] INTRACARD EP NON-LASR HEMOGLOBI 75345 EPISCOPAL EPISCOPAL N 7 [facility] GLYCOSYLA [facility] STEFANO A1C INJECTION J2250 EPISCOPAL EPISCOPAL 7 [facility] MIDAZOLAM [facility] HCL PER 1 MG CATH PLMT 22196 EPISCOPAL THOMAS Trimble HRT & 7 [employer] ARTS MEDICAL W/NJX & GROUP ANGIO IMG S&I LIPID 23063 EPISCOPAL EPISCOPAL PANEL 7 [facility] GUIDE C1769 EPISCOPAL EPISCOPAL WIRE 7 [facility] INJECTION J1644 EPISCOPAL EPISCOPAL HEPARIN 7 [facility] SODIUM [facility] PER 1000 UNITS COMPREHEN 76624 EPISCOPAL EPISCOPAL SIVE 7 [facility] METABOLIC [facility] PANEL FIBRIN 48160 [facility] DGRADJ 7 [place] D-DIMER QUANTITAT JAG CREATINE 60353 [facility] KINASE MB 7 [facility] HOSPITAL ONLY BASIC 22762 [facility] METABOLIC [address] [place] [address] [place] [address] [facility] TROPONIN [address] [place] [address] HOSPITAL JAG BLOOD 55063 [facility] COUNT [address] [place] [address] HOSPITAL AUTO&AUTO DIFRNTL WBC RADIOLOGI 69548 [place] GAR[place]TT C 7 RADIOLOGY EXAMINATI ON CHEST SINGLE VIEW FRONTAL ECG 21311 [facility] ROUTINE [address] [place] [address] HOSPITAL W/LEAST 12 LDS TRCG ONLY W/O I&R INJECTION J1040 [facility] VAN 7 METHYLPRE ORTHOPAED DNISOLONE ICS PSC ACETATE 80 MG NJX 72183 CH[facility] VAN DX/THER 7 SBST ORTHOPAED INTRLMNR ICS PSC LMBR/SAC W/IMG GDN LOCM Q9965 CHAST[facility] VAN 100-199 7 MG/ML ORTHOPAED IODINE ICS PSC CONCENTRA TION PER ML PROF SVCS 32642 ALLERGY ZIEGLER ALLG 7 PARTNERS IMMNTX X OF [place] W/PRV CO ALLGIC XTRCS NJXS CV STRS 74606 [place] AMIN WAESPE TST 7 MD XERS&/OR CONSULTIN RX CONT G SRV ECG I&R ONLY NONINVASI 21757 [place] AMIN AMIN VE 7 EAR/PULSE CONSULTIN OXIMETRY G SRV OVERNIGHT MONITOR TECHNETIU A9500 JUDY KIM M TC-99M 7 [facility] DX PER STUDY DOSE MYOCARDIA 30976 GRAEME AMIN WAESPE L SPECT 7 MULTIPLE CONSULTIN STUDIES G SRV CV STRS 47304 JUDY KIM TST 7 [facility] XERS&/OR [facility] RX CONT ECG TRCG ONLY ECHO 99788 G[place] AMIN AMIN TTHRC R-T 7 2D CONSULTIN W/WOM-MOD G SRV E COMPL SPEC&COLR D LIPID 52131 [facility] PANEL 7 [facility] INC INC POTASSIUM 21239 IND[facility]ORJAS SERUM 7 [facility] PLASMA/[place] [address] [facility] THYROID 7 [facility] STIMULATI INC INC NG HORMONE TSH COLLECTIO 82451 INDIO BORJAS N VENOUS 7 [facility] BLOOD INC INC VENIPUNCT URE RADIOLOGI 94669 [place] GAR[place]TT C EXAM 7 RADIOLOGY CHEST 2 VIEWS FRONTAL&L ATERAL COMPREHEN 30427 JUDY KIM SIVE [address] [place] [address] PANEL ECG 91768 JUDY KIM ROUTINE 7 [facility] W/LEAST 12 LDS TRCG ONLY W/O I&R THER 04908 JUDY RODGERS JR PROPH/DX 7 [facility] PUSH SINGLE/1S T SBST/DRUG BLOOD 46912 JUDY KIM COUNT 7 [facility] AUTO&[place] [address] JUDY KIM TROPONIN 7 [facility] JAG INJECTION J1040 [facility] 7 METHYLPRE ORTHOPAED DNISOLONE ICS PSC ACETATE 80 MG NJX 14011 [facility]/THER 7 SBST ORTHOPAED INTRLMNR ICS PSC LMBR/SAC W/IMG GDN PROF SVCS 50795 ALLERGY ZIEGLER ALLG 7 PARTNERS IMMNTX X OF [place] W/PRV CO ALLGIC XTRCS NJXS URNLS DIP 23068 BROCK MAGED 7 AND STICK/TAB MAGED, LET RGNT PSC NON-AUTO W/O MICRSCP PREPJ& 70052 ALLERGY ZIEGLER ALLERGEN 7 PARTNERS IMMUNOTHE OF [place] RAPY CO 1/[place] [address] ALLERGY ZIEGLER ALLG 7 PARTNERS IMMNTX X OF [place] W/[place] [address] ALLERGY ZIEGLER ALLG 7 PARTNERS IMMNTX X OF [place] W/PRV CO ALLGIC XTRCS NJXS RADIOLOGI 96250 BLUEGRASS MARTI C 7 EXAMINATI ORTHOPAED ON KNEE ICS PSC 1/2 VIEWS ECG 13039 [facility] ROUTINE 6 [facility] ECG INC INC W/LEAST 12 LDS TRCG ONLY W/O I&R ECG 25490 INDIO ADAM JR ROUTINE 6 [facility] W/LEAST P 12 LDS I&R ONLY PRESSURIZ 22975 [facility] ED/NONPRE 6 [facility] SSURIZED INC INC INHALATIO N TREATMENT SPMTRY 80704 ALLERGY ZIEGLER MAR W/VC 6 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 [place] Y CLARA CO W/WO MXML VOL VNTJ NITRIC 71362 ALLERGY ZIEGLER MAR OXIDE 6 PARTNERS OF [place] GAS CO DETERMINA TION PROF [facility] 90087 ALLERGY ZIEGLER MAR ALLG 6 PARTNERS IMMNTX X OF [place] W/PRV CO ALLGIC XTRCS NJXS PROF [facility] 19792 ALLERGY ZIEGLER MAR ALLG 6 PARTNERS IMMNTX X OF [place] W/PRV CO ALLGIC XTRCS NJXS PROF [facility] 90622 ALLERGY ZIEGLER MAR ALLG 6 PARTNERS IMMNTX X OF [place] W/PRV CO ALLGIC XTRCS NJXS PREPJ& 04975 ALLERGY ZIEGLER MAR ALLERGEN 6 PARTNERS IMMUNOTHE OF [place] RAPY CO 1/MERCHANDISING REPRESENTATIVE ANTIGEN 3D 38210 [place] KLARIS[place] RENDERING 6 MEDICAL W/INTERP IMAGING & ASS POSTPROCE SS SUPERVISI ON MRI 66172 [facility] KLARISSA SPINAL 6 MEDICAL CANAL IMAGING LUMBAR ASS W/O CONTRAST MATERIAL PROF [facility] 70680 ALLERGY ZIEGLER MAR ALLG 6 PARTNERS IMMNTX X OF [place] W/PRV CO ALLGIC XTRCS NJXS PROF [facility] 73950 ALLERGY ZIEGLER MAR ALLG 6 PARTNERS IMMNTX X OF [place] W/PRV CO ALLGIC XTRCS NJXS RADEX 74415 BLUELOIS MARTI SPINE 6 GRE LUMBOSACR ORTHOPAED AL 2/3 ICS PSC VIEWS RADIOLOGI 70484 [facility] MARTI C 6 GRE EXAMINATI ORTHOPAED ON KNEE ICS PSC 1/2 VIEWS PROF [facility] 54915 ALLERGY ZIEGLER MAR ALLG 6 PARTNERS IMMNTX X OF [place] W/PRV CO ALLGIC XTRCS NJXS OPHTH 35682 [facility] 6 VISION XM&EVAL CENTER COMPRHNSV ESTAB PT 1/> DETERMINA 03738 MIAN BRYANT TION 6 [facility] E STATE PROF [facility] 69271 ALLERGY ZIEGLER MAR ALLG 6 PARTNERS IMMNTX X OF [place] W/PRV CO ALLGIC XTRCS NJXS PROF [facility] 99002 ALLERGY ZIEGLER MAR ALLG 6 PARTNERS IMMNTX X OF [place] W/PRV CO ALLGIC XTRCS NJXS SPMTRY 67067 ALLERGY ZIEGLER MAR W/VC 6 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 [place] Y CLARA CO W/WO MXML VOL VNTJ NITRIC 43722 ALLERGY ZIEGLER MAR OXIDE 6 PARTNERS OF [place] GAS CO DETERMINA TION DEMO&/GERMAINE 16381 ALLERGY ALLERGY L OF PT 6 PARTNERS PARTNERS UTILIZ OF [place] OF [place] AERSL CO CO GEN/NEB/I NHLR/IP PROF [facility] 44310 ALLERGY ZIEGLER MAR ALLG 6 PARTNERS IMMNTX X OF [place] W/PRV CO ALLGIC XTRCS NJXS PROF [facility] 54474 ALLERGY ZIEGLER MAR ALLG 6 PARTNERS IMMNTX X OF [place] W/PRV CO ALLGIC XTRCS NJXS PROF [facility] 53016 ALLERGY ZIEGLER MAR ALLG 6 PARTNERS IMMNTX X OF [place] W/PRV CO ALLGIC XTRCS NJXS RADIOLOGI 93313 BLUELOIS MOREIRAGELO C 6 GRE EXAMINATI ORTHOPAED ON KNEE ICS PSC 1/2 VIEWS PROF [facility] 73115 ALLERGY ZIEGLER MAR ALLG 6 PARTNERS IMMNTX X OF [place] W/PRV CO ALLGIC XTRCS NJXS PROF [facility] 85566 ALLERGY ZIEGLER MAR ALLG 6 PARTNERS IMMNTX X OF [place] W/PRV CO ALLGIC XTRCS NJXS PROF [facility] 99281 ALLERGY ZIEGLER MAR ALLG 6 PARTNERS IMMNTX X OF [place] W/PRV CO ALLGIC XTRCS NJXS SCREENING G0202 [facility] 6 MEDICAL LILLIE MAMMOGRAP IMAGING HY BENEDICT ASS INCL CAD WHEN PERFORMD COMPUTER- 61562 [facility] AIDED 6 MEDICAL LILLIE DETECTION IMAGING ASS SCREENING MAMMOGRAP HY THERAPEUT 08215 [facility] IC PX 1/> 6 [facility] AREAS INC INC EACH 15 MIN EXERCISES PROF [facility] 37443 ALLERGY ZIEGLER MAR ALLG 6 PARTNERS IMMNTX X OF [place] W/PRV CO ALLGIC XTRCS NJXS THERAPEUT 18890 INDIO BORJAS IC PX 1/> 6 [facility] AREAS INC INC EACH 15 MIN EXERCISES THERAPEUT 41134 INDIO HUNTERON IC PX 1/> 6 [facility] AREAS INC INC EACH 15 MIN EXERCISES IADNA 92130 BIO BIO TRICHOMON 6 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 VAGINALIS IES IES AMPLIFIED PROBE TECH CYTP C/V 21103 BIO BIO AUTO THIN 6 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 PREPJ SCR IES IES MNL RESCR PHYS URINLS 40758 [facility] DIP 6 PHYSICIAN PHYSICIAN STICK/TAB S GROUP S GROUP LET REAGNT NON-AUTO MICRSCPY ANNUAL G0439 [facility] HARPEL WELLNESS 6 PHYSICIAN SONJA VST; S GROUP PERSONALI ZED PPS SUBSQT VST THERAPEUT 07222 INDIO INDIO IC PX 1/> 6 [facility] AREAS INC [facility] EACH 15 MIN EXERCISES PROF [facility] 72742 ALLERGY ZIEGLER MAR ALLG 6 PARTNERS IMMNTX X OF [place] W/PRV CO ALLGIC XTRCS NJXS THERAPEUT 65370 INDIO HUNTERON IC PX 1/> 6 [facility] AREAS INC INC EACH 15 MIN EXERCISES THERAPEUT 17632 INDIO INDIO IC PX 1/> 6 [facility] AREAS INC INC EACH 15 MIN EXERCISES THERAPEUT 28135 INDIO INDIO IC PX 1/> 6 [facility] AREAS INC INC EACH 15 MIN EXERCISES PREPJ& 34696 ALLERGY ZIEGLER MAR ALLERGEN 6 PARTNERS IMMUNOTHE OF [place] RAPY CO 1/MERCHANDISING REPRESENTATIVE ANTIGEN THERAPEUT 00998 INDIO INDIO IC PX 1/> 6 [facility] AREAS INC INC EACH 15 MIN EXERCISES PHYSICAL 90125 [facility] THERAPY 6 [facility] EVALUATIO INC INC N 34521 [facility] S[facility] GUIDANCE 6 ANESTHESI NEEDLE A PLACEMENT ASSOCIAT IMG S&I ARTHRP 22971 [facility] MARTI KNEE 6 GRE CONDYLE&P ORTHOPAED LATEAU ICS PSC MEDIAL/LA T CMPRT CARLOS E0135 [employer] FOLDING 6 ADJUSTABL E OR FIXED HEIGHT INJECTION 16522 [facility] SCO 6 ANESTHESI ANESTHETI A C AGENT ASSOCIAT FEMORAL NERVE SINGLE PROF [facility] 50844 ALLERGY ZIEGLER MAR ALLG 6 PARTNERS IMMNTX X OF [place] W/PRV CO ALLGIC XTRCS NJXS COLLECTIO 84191 [facility] N VENOUS 6 DIAGNOSTI DIAGNOSTI BLOOD CS CS VENIPUNCT [place] [address] [facility] THYROID 6 DIAGNOSTI DIAGNOSTI STIMULATI CS CS NG INCORPORA INCORPORA HORMONE T T TSH LIPID 40817 [facility] PANEL 6 DIAGNOSTI DIAGNOSTI CS CS INCORPORA INCORPORA T T ANNUAL G0439 BROCK LYNNE WELLNESS 6 AND JANE VST; SONY LYNENI PSC ZED PPS SUBSQT VST ECG 88403 JUDY KIM ROUTINE 6 [facility] W/LEAST 12 LDS TRCG ONLY W/O I&R URNLS DIP 72271 JUDY KIM [address] [place] [address] LET REAGENT AUTO MICROSCOP Y HEMOGLOBI 01405 JUDY KIM N [address] [place] [address] STEFANO A1C BLOOD 98962 JUDY KIM COUNT [address] [place] [address] AUTO&AUTO DIFRNTL WBC BASIC 31281 JUDY KIM METABOLIC [address] [place] [address] CALCIUM TOTAL ECG 74950 GRAEME AMIN AMIN GRAEME ROUTINE 6 MD ECG CONSULTIN W/LEAST G SRV 12 LDS I&R ONLY PROTHROMB 25296 JUDY KIM IN TIME [address] [place] [address] CUL 69274 JUDY KIM PRSMPTV [address] [place] [address] HOSPITAL ORGANISM SCRN W/COLONY ESTIMJ RADIOLOGI 21979 [place] NIKKI C EXAM 6 RADIOLOGY RHO CHEST 2 VIEWS FRONTAL&L ATERAL COLLECTIO 67488 JUDY KIM N VENOUS [address] [place] [address] VENIPUNCT URE THROMBOPL 42279 JUDY KIM ASTIN [address] [place] [address] PARTIAL PLASMA/WH OLE BLOOD PROF SVCS 91098 ALLERGY ZIEGLER MAR ALLG 6 PARTNERS IMMNTX X OF [place] W/PRV CO ALLGIC XTRCS NJXS PROF SVCS 36210 ALLERGY ZIEGLER MAR ALLG 6 PARTNERS IMMNTX X OF [place] W/PRV CO ALLGIC XTRCS NJXS PROF SVCS 65219 ALLERGY ZIEGLER MAR ALLG 6 PARTNERS IMMNTX X OF [place] W/PRV CO ALLGIC XTRCS NJXS PROF SVCS 05916 ALLERGY ZIEGLER MAR ALLG 6 PARTNERS IMMNTX X OF [place] W/PRV CO ALLGIC XTRCS NJXS RADIOLOGI 42354 CHASTITY Suárez 6 SOPHIE EXAMINATI ORTHOPAED ON KNEE 3 [place] [address] ALLERGY ZIEGLER MAR ALLG 6 PARTNERS IMMNTX X OF [place] W/PRV CO ALLGIC XTRCS NJXS INCISION 84104 INDIO INDIO & REMOVAL 6 [facility] FOREIGN INC INC BODY SUBQ TISS COMPL PREPJ& 23428 ALLERGY ZIEGLER MAR ALLERGEN 6 PARTNERS IMMUNOTHE OF [place] RAPY CO 1/[place] [address] ALLERGY ZIEGLER MAR ALLG 6 PARTNERS IMMNTX X OF [place] W/[place] [address] ALLERGY ZIEGLER MAR ALLG 6 PARTNERS IMMNTX X OF [place] W/[place] [address] ALLERGY ZIEGLER MAR ALLG 6 PARTNERS IMMNTX X OF [place] W/[place] [address] ALLERGY ZIEGLER MAR ALLG 6 PARTNERS IMMNTX X OF [place] W/[place] [address] ALLERGY ZIEGLER MAR ALLG 6 PARTNERS IMMNTX X OF [place] W/PRV CO ALLGIC XTRCS NJXS ARTHROCEN 65311 [facility] TESIS 6 [place] SOP[place]IE ASPIR&/IN ORTHOPAED J MAJOR ICS PLC JT/BURSA W/O US HYALURONA J7324 [facility] N/DERIV 6 [place] SOP[place] ORTHOVISC ORTHOPAED [place] [address] ALLERGY ZIEGLER MAR ALLG 6 PARTNERS IMMNTX X OF [place] W/PRV CO ALLGIC XTRCS NJXS PROF SVCS 05207 ALLERGY ZIEGLER MAR ALLG 6 PARTNERS IMMNTX X OF [place] W/PRV CO ALLGIC XTRCS NJXS SPMTRY 70556 ALLERGY ZIEGLER MAR W/VC 6 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 [place] Y CLARA CO W/WO MXML VOL VNTJ NITRIC 41633 ALLERGY ZIEGLER MAR OXIDE 6 PARTNERS OF [place] GAS CO DETERMINA TION PROF SVCS 39892 ALLERGY ZIEGLER MAR ALLG 6 PARTNERS IMMNTX X OF [place] W/PRV CO ALLGIC XTRCS NJXS PROF SVCS 15063 ALLERGY ZIEGLER MAR ALLG 6 PARTNERS IMMNTX X OF [place] W/PRV CO ALLGIC XTRCS NJXS PROF SVCS 88310 ALLERGY ZIEGLER MAR ALLG 6 PARTNERS IMMNTX X OF [place] W/PRV CO ALLGIC XTRCS NJXS PROF SVCS 11558 ALLERGY ZIEGLER MAR ALLG 6 PARTNERS IMMNTX X OF [place] W/PRV CO ALLGIC XTRCS NJXS PROF SVCS 25284 ALLERGY ZIEGLER MAR ALLG 6 PARTNERS IMMNTX X OF [place] W/PRV CO ALLGIC XTRCS NJXS PROF SVCS 32106 ALLERGY ZIEGLER MAR ALLG 6 PARTNERS IMMNTX X OF [place] W/PRV CO ALLGIC XTRCS NJXS PREPJ& 33240 ALLERGY ZIEGLER MAR ALLERGEN 6 PARTNERS IMMUNOTHE OF [place] RAPY CO 1/MERCHANDISING REPRESENTATIVE ANTIGEN PROF SVCS 49950 ALLERGY ZIEGLER MAR ALLG 6 PARTNERS IMMNTX X OF [place] W/PRV CO ALLGIC XTRCS NJXS PROF SVCS 40452 ALLERGY ZIEGLER MAR ALLG 6 PARTNERS IMMNTX X OF [place] W/PRV CO ALLGIC XTRCS NJXS PROF SVCS 21587 ALLERGY ZIEGLER MAR ALLG 6 PARTNERS IMMNTX X OF [place] W/PRV CO ALLGIC XTRCS NJXS PROF SVCS 14552 ALLERGY ZIEGLER MAR ALLG 6 PARTNERS IMMNTX X OF [place] W/PRV CO ALLGIC XTRCS NJXS PROF SVCS 89368 ALLERGY ZIEGLER MAR ALLG 5 PARTNERS IMMNTX X OF [place] W/PRV CO ALLGIC XTRCS NJXS THERAPEUT 98001 [facility] IC PX 1/> 5 [facility] ARE[facility] INC INC EACH 15 MIN EXERCISES APPLICATI 36072 [facility] ON 5 [facility] MODALITY INC INC 1/> AREAS HOT/COLD PACKS E-STIM [id number] [facility] 1/> AREAS 5 [facility] OTH THAN INC INC WND CARE PART TX PLAN E-STIM [id number] [facility] 1/> AREAS 5 [facility] OTH THAN INC INC WND CARE PART TX PLAN APPL 09910 [facility] MODALITY 5 [facility] 1/> AREAS INC INC VASOPNEUM ATIC DEVICES PHYSICAL 59154 [facility] THERAPY 5 [facility] EVALUATIO INC INC N THERAPEUT 62673 [facility] IC PX 1/> 5 [facility] ARE[facility] INC INC EACH 15 MIN EXERCISES DEMO&/GERMAINE 60341 ALLERGY ZIEGLER MAR L OF PT 5 PARTNERS UTILIZ OF [place] AERSL CO GEN/NEB/I NHLR/IP NITRIC 09741 ALLERGY ZIEGLER MAR OXIDE 5 PARTNERS OF [place] GAS CO DETERMINA TION SPMTRY 47627 ALLERGY ZIEGLER MAR W/VC 5 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 [place] Y CLARA CO W/WO MXML VOL VNTJ PROF SVCS 54146 ALLERGY ZIEGLER MAR ALLG 5 PARTNERS IMMNTX X OF [place] W/PRV CO ALLGIC XTRCS NJXS PROF SVCS 32950 ALLERGY ZIEGLER MAR ALLG 5 PARTNERS IMMNTX X OF [place] W/PRV CO ALLGIC XTRCS NJXS PROF SVCS 05698 ALLERGY ZIEGLER MAR ALLG 5 PARTNERS IMMNTX X OF [place] W/PRV CO ALLGIC XTRCS NJXS PROF SVCS 25658 ALLERGY ZIEGLER MAR ALLG 5 PARTNERS IMMNTX X OF [place] W/PRV CO ALLGIC XTRCS NJXS PROF SVCS 72421 ALLERGY ZIEGLER MAR ALLG 5 PARTNERS IMMNTX X OF [place] W/PRV CO ALLGIC XTRCS NJXS PROF SVCS 67642 ALLERGY ZIEGLER MAR ALLG 5 PARTNERS IMMNTX X OF [place] W/PRV CO ALLGIC XTRCS NJXS ANES 32851 SAMMI BYRNE OPEN/SURG 5 ANESTHESI ROSALES A GROUP ARTHROSCO PS PIC PROC KNEE JOINT NOS ARTHRS 03837 [facility] KNE SURG 5 [place] SOPHIE W/MENISCE ORTHOPAED CTOMY ICS PLC MED/LAT W/SHVG PROF SVCS 84841 ALLERGY ZIEGLER MAR ALLG 5 PARTNERS IMMNTX X OF [place] W/PRV CO ALLGIC XTRCS NJXS PROF SVCS 25753 ALLERGY ZIEGLER MAR ALLG 5 PARTNERS IMMNTX X OF [place] W/PRV CO ALLGIC XTRCS NJXS RADIOLOGI 08145 CNTRL [place] NIKKI C EXAM 5 RADIOLOGY RHO CHEST 2 VIEWS FRONTAL&L ATERAL COLLECTIO 71516 [facility] N VENOUS 5 N N BLOOD COMMUNTIY COMMUNTIY VENIPUNCT HOSPITA HOSPITA URE BASIC 10639 [facility] METABOLIC 5 N N PANEL COMMUNTIY COMMUNTIY CALCIUM HOSPITA HOSPITA TOTAL ECG 53669 [facility] ROUTINE 5 N N ECG COMMUNTIY COMMUNTIY W/LEAST HOSPITA HOSPITA 12 LDS TRCG ONLY W/O I&R BLOOD 88756 [facility] COUNT 5 N N COMPLETE COMMUNTIY COMMUNTIY AUTOMATED HOSPITA HOSPITA PROF SVCS 65044 ALLERGY ZIEGLER MAR ALLG 5 PARTNERS IMMNTX X OF [place] W/PRV CO ALLGIC XTRCS NJXS PROF SVCS 46344 ALLERGY ZIEGLER MAR ALLG 5 PARTNERS IMMNTX X OF [place] W/PRV CO ALLGIC XTRCS NJXS PROF SVCS 15757 ALLERGY ZIEGLER MAR ALLG 5 PARTNERS IMMNTX X OF [place] W/PRV CO ALLGIC XTRCS NJXS PROF SVCS 13477 ALLERGY ZIEGLER MAR ALLG 5 PARTNERS IMMNTX X OF [place] W/PRV CO ALLGIC XTRCS NJXS PROF SVCS 08811 ALLERGY ZIEGLER MAR ALLG 5 PARTNERS IMMNTX X OF [place] W/PRV CO ALLGIC [place]TRCS [place] 13117 [facility] JT LOWER 5 [place] SOPHIE EXTREM ORTHOPAED W/O ICS PLC CONTRAST MATRL PROF SVCS 75424 ALLERGY ZIEGLER MAR ALLG 5 PARTNERS IMMNTX X OF [place] W/PRV CO ALLGIC XTRCS NJXS PROF SVCS 84002 ALLERGY ZIEGLER MAR ALLG 5 PARTNERS IMMNTX X OF [place] W/PRV CO ALLGIC XTRCS NJXS PROF SVCS 85835 ALLERGY ZIEGLER MAR ALLG 5 PARTNERS IMMNTX X OF [place] W/PRV CO ALLGIC XTRCS NJXS PROF SVCS 72125 ALLERGY ZIEGLER MAR ALLG 5 PARTNERS IMMNTX X OF [place] W/PRV CO ALLGIC XTRCS NJXS INJECTION J1100 BROCK MAGED 5 AND JANE DEXAMETHO MAGED, SONE PSC SODIUM PHOSPHATE 1 MG INJECTION J0696 BROCK MAGED 5 AND JANE CEFTRIAXO MAGED, NE SODIUM PSC PER 250 MG PROF SVCS 69396 ALLERGY ZIEGLER MAR ALLG 5 PARTNERS IMMNTX X OF [place] W/PRV CO ALLGIC XTRCS NJXS PROF SVCS 67588 ALLERGY ZIEGLER MAR ALLG 5 PARTNERS IMMNTX X OF [place] W/PRV CO ALLGIC XTRCS NJXS PROF SVCS 57174 ALLERGY ZIEGLER MAR ALLG 5 PARTNERS IMMNTX X OF [place] W/PRV CO ALLGIC XTRCS NJXS PROF SVCS 17573 ALLERGY ZIEGLER MAR ALLG 5 PARTNERS IMMNTX X OF [place] W/PRV CO ALLGIC XTRCS NJXS PROF SVCS 96691 ALLERGY ZIEGLER MAR ALLG 5 PARTNERS IMMNTX X OF [place] W/PRV CO ALLGIC XTRCS NJXS PROF SVCS 45842 ALLERGY ZIEGLER MAR ALLG 5 PARTNERS IMMNTX X OF [place] W/PRV CO ALLGIC XTRCS NJXS PROF SVCS 28575 ALLERGY ZIEGLER MAR ALLG 5 PARTNERS IMMNTX X OF [place] W/PRV CO ALLGIC XTRCS NJXS PROF SVCS 77259 ALLERGY ZIEGLER MAR ALLG 5 PARTNERS IMMNTX X OF [place] W/PRV CO ALLGIC XTRCS NJXS PREPJ& 22571 ALLERGY ZIEGLER MAR ALLERGEN 5 PARTNERS IMMUNOTHE OF [place] RAPY CO 1/MERCHANDISING REPRESENTATIVE ANTIGEN PERCUTANE 95692 ALLERGY ZIEGLER MAR OUS TESTS 5 [facility]NERS OF [place] W/ALLERGE CO ABNER EXTRACTS INTRACUTA 93837 ALLERGY ALLERGY NEOUS 5 PARTNERS PARTNERS TESTS OF [place] OF [place] W/ALLERGE CO CO ABNER EXTRACTS PERCUTANE 66965 ALLERGY ZIEGLER MAR OUS TESTS 5 [facility]NERS OF [place] W/ALLERGE CO ABNER EXTRACTS NITRIC 44164 ALLERGY ZIEGLER MAR OXIDE 5 PARTNERS OF [place] GAS CO DETERMINA TION SPMTRY 47515 ALLERGY ZIEGLER MAR W/VC 5 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 [place] Y CLARA CO W/WO MXML VOL VNTJ HYALURONA J7324 [facility] N/DERIV 5 [place] [facility] ORTHOVISC ORTHOPAED [place] INJ [facility]CS [facility] PER DOSE ARTHROCEN 64081 [facility] TESIS 5 [place] ASPIR&/IN ORTHOPAED J MAJOR ICS PLC JT/BURSA W/O US ARTHROCEN 21012 [facility] TESIS 5 [place] ASPIR&/IN ORTHOPAED J MAJOR ICS PLC JT/BURSA W/O US HYALURONA J7324 [facility] N/DERIV 5 [place] [facility]OP[facility]IE ORTHOVISC ORTHOPAED IA INJ ICS PLC PER DOSE HYALURONA J7324 [facility] N/DERIV 5 [place] [facility]OP[facility]IE ORTHOVISC ORTHOPAED IA INJ ICS PLC PER DOSE ARTHROCEN 16360 [facility] TESIS 5 [place] S[facility] ASPIR&/IN ORTHOPAED J MAJOR ICS PLC JT/BURSA W/O US SCREENING G0202 [facility] MAMMOGRAP INC INC HY BENEDICT INCL CAD WHEN PERFORMD 59339 [facility] AIDED 5 [facility] DETECTION INC INC SCREENING MAMMOGRAP HY URINLS 78345 CHARLES SOTO R DIP 5 DILMA PERERA MD STICK/TAB LET REAGNT NON-AUTO MICRSCPY ANNUAL G0439 CHARLES PERERA WELLNESS 5 DILMA CASILLAS VST; PERSONALI ZED PPS SUBSQT VST IADNA 99820 BIO BIO 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 [place] [address] INDIO BORJAS INFUSION 5 [facility] THERAPY/P INC INC ROPHYLAXI S /DX 1ST TO 1 HR GLUCOSE 83858 [facility] BODY 5 N N FLUID COMMUNTIY COMMUNTIY OTHER HOSPITA HOSPITA THAN BLOOD SPINAL 08694 [facility] [place] [facility] EL[facility] PUNCTURE 5 RADIOLOGY LUMBAR DIAGNOSTI C PROTEIN 70625 [facility] TOTAL 5 N N XCPT COMMUNTIY COMMUNTIY REFRACTOM HOSPITA HOSPITA ETRY OTH SRC FLUOR 71794 [facility] [place] [facility] ELIU NEEDLE/CA 5 RADIOLOGY TH SPINE/PAR ASPINAL DX/THER ADDON SMR PRIM 77963 [facility] SRC 5 N N GRAM/GIEM COMMUNTIY COMMUNTIY SA STAIN HOSPITA HOSPITA BCT FUNGI/JOSE L CUL BACT 42475 [facility] XCPT 5 N N URINE COMMUNTIY COMMUNTIY BLOOD/STO HOSPITA HOSPITA OL AEROBIC ISOL CYTP 25750 [facility]ONG SLCTV 5 CLAIRE & ELIU CELL DUBILIER ENHANCEME NT INTERPJ XCPT C/V CELL 96172 [facility] COUNT 5 N N MISC BODY COMMUNTIY COMMUNTIY FLUIDS HOSPITA HOSPITA W/DIFFERE NTIAL COUNT RADIOLOGI 05649 [facility] C EXAM 5 N N BOTH COMMUNTIY COMMUNTIY KNEES HOSPITA HOSPITA STANDING ANTEROPOS T RADIOLOGI 81347 [facility] [place] [facility] C 5 RADIOLOGY EXAMINATI ON KNEE 3 VIEWS RADIOLOGI 29169 [facility] C 5 N N EXAMINATI COMMUNTIY COMMUNTIY ON KNEE HOSPITA HOSPITA 1/2 VIEWS E-STIM G0283 [facility]IO [facility]AS 1/> AREAS 5 [facility] OTH THAN INC INC WND CARE PART TX PLAN APPLICATI 14257 [facility] B[facility] ON 5 [facility] MODALITY INC INC 1/> AREAS HOT/COLD PACKS MANUAL 36190 [facility] THERAPY 5 [facility] TQS 1/> INC INC REGIONS EACH 15 MINUTES APPLICATI 17828 [facility] ON 5 [facility] MODALITY INC INC 1/> AREAS HOT/COLD PACKS E-STIM G0283 [facility]IO [facility]JAS 1/> AREAS 5 [facility]OS[facility] OTH THAN INC INC WND CARE PART TX PLAN E-STIM G0283 [facility] B[facility]JAS 1/> AREAS 5 [facility]OS[facility] OTH THAN INC INC WND CARE PART TX PLAN APPLICATI 30945 [facility] B[facility] ON 5 [facility] MODALITY INC INC 1/> AREAS HOT/COLD PACKS MANUAL 49958 [facility] THERAPY 5 [facility] TQS 1/> INC INC REGIONS EACH 15 MINUTES MANUAL 29821 [facility] THERAPY 5 [facility] TQS 1/> INC INC REGIONS EACH 15 MINUTES APPLICATI 36559 [facility] ON 5 [facility] MODALITY INC INC 1/> AREAS HOT/COLD PACKS E-STIM G0283 [facility]IO [facility]ORJAS 1/> AREAS 5 [facility]OS[facility] OTH THAN INC INC WND CARE PART TX PLAN E-STIM G0283 [facility]IO BORJAS 1/> AREAS 5 [facility]OS[facility] OTH THAN INC INC WND CARE PART TX PLAN APPLICATI 42274 [facility] B[facility] ON 5 [facility] MODALITY INC INC 1/> AREAS HOT/COLD PACKS MANUAL 80024 [facility] THERAPY 5 [facility] TQS 1/> INC INC REGIONS EACH 15 MINUTES MANUAL 96034 [facility]AS THERAPY 5 [facility] TQS 1/> INC INC REGIONS EACH 15 MINUTES APPLICATI 50665 [facility] ON 5 [facility] MODALITY INC INC 1/> AREAS HOT/COLD PACKS E-STIM G0283 [facility] B[facility]AS 1/> AREAS 5 [facility] OTH THAN INC INC WND CARE PART TX PLAN PHYSICAL 65161 [facility] THERAPY 5 [facility] EVALUATIO INC INC N THERAPEUT 10514 [facility]JAS IC PX 1/> 5 [facility] AREAS INC INC EACH 15 MIN EXERCISES MRI BRAIN 91081 [facility] [place] RYNE BRAIN 5 RADIOLOGY III JAYESH STEM W/O CONTRAST MATERIAL KNEE L1845 [facility] ADVANCED ORTHOSIS 4 TECHNOLOG TECHNOLOG DOUBLE IES INC IES INC UPRIGHT THIGH & CALF PREFAB RADIOLOGI 42160 [facility] C 4 N N EXAMINATI COMMUNITY COMMUNITY ON KNEE HOSPITA HOSPITA 1/2 VIEWS BLOOD 76981 [facility] COUNT 4 N N COMPLETE [facility] AUTOMATED HOSPITA HOSPITA COLLECTIO 94098 [facility] N VENOUS 4 N N BLOOD [facility] VENIPUNCT HOSPITA HOSPITA URE RADIOLOGI 40753 [facility] [place] NIKKI C 4 RADIOLOGY RHO EXAMINATI ON PELVIS 1/2 VIEWS COMPREHEN 72405 [facility] SIVE 4 N N METABOLIC [facility] PANEL HOSPITA HOSPITA RADIOLOGI 51335 [facility] [place] NIKK[place] C 4 RADIOLOGY RHO EXAMINATI ON KNEE 3 VIEWS RADIOLOGI 87123 [facility] EXAM 4 N N BOTH [facility] KNEES HOSPITA HOSPITA STANDING ANTEROPOS T ADMINISTR G0008 [employer] [facility] PHARMACY INFLUENZA #591 #591 VIRUS VACCINE IIV3 VACC 71162 [facility] [employer] [facility] PHARMACY PRESERVAT #591 #591 JAG FREE 0.5 ML DOSAGE IM USE INJECTION J1100 MAGED LYNNE 4 JANE JANE DEXAMETHO SONE SODIUM PHOSPHATE 1 MG INJECTION J2405 [facility]AS 4 [facility] ONDANSETR INC INC ON HCL PER 1 MG THERAPEUT 66012 [facility] B[facility] IC 4 [facility] INJECTION [place] [address] [facility] INFUSION 4 [facility] THERAPY/P INC INC ROPHYLAXI S /DX 1ST TO 1 HR ARTHRS 70801 [facility] KNEE 4 [facility] ABRASION INC INC ARTHRP/ML [place] DRLG/[place] [address] [facility] INFUSION 4 [facility] THERAPY INC INC PROPHYLAX IS/DX EA HOUR ARTHRS 86389 [facility] KNEE 4 [facility] W/MENISCE INC INC CTOMY MED&LAT W/SHAVING BASIC 03162 [facility] METABOLIC 4 [facility] PANEL INC INC CALCIUM TOTAL ECG 74471 INDIO ADAM JR ROUTINE 4 [facility] W/LEAST P 12 LDS I&R ONLY BLOOD 22154 [facility]JAS COUNT 4 [facility] COMPLETE INC INC AUTO&AUTO DIFRNTL WBC ECG 98711 [facility] ROUTINE 4 [facility] ECG INC INC W/LEAST 12 LDS TRCG ONLY W/O I&R COLLECTIO 37101 [facility] N VENOUS 4 [facility] BLOOD INC INC VENIPUNCT URE URNLS DIP 28520 MAGED LYNNE 4 JANE JANE STICK/TAB LET RGNT NON-AUTO W/O MICRSCP RADEX 26438 [facility] SPINE 4 [facility] LUMBOSACR INC INC AL MINIMUM 4 VIEWS CERV/VAGI G0101 CHARLES PERERA NAL 4 DILMA CASILLAS CANCER SCR; PELV&CLIN BREAST EXAM SCR G0145 BIO BIO CYTOPATH 4 REFERNCE REFERNCE CERV/VAG LABORATOR LABORATOR SCR IES IES AUTO&MNL RSCR PHYS RADIOLOGI 83572 [facility] C 4 [facility] EXAMINATI INC INC ON KNEE 3 VIEWS IADNA 23675 BIO BIO TRICHOMON 4 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 VAGINALIS IES IES AMPLIFIED PROBE TECH ANNUAL G0438 CHARLES PERERA WELLNESS 4 DILMA CASILLAS VISIT; PERSONALI Z PPS INIT VISIT THERAPEUT 88723 [facility] IC 4 [facility] PROPHYLAC INC INC TIC/DX INJECTION SUBQ/IM SCREEN Q0091 CHRALES PERERA PAP 4 DILMA CASILLAS SMEAR; OBTAIN PREP &C ONVEY TO LAB URINLS 87295 CHARLES Bojorquez DIP 4 DILMA PERERA MD STICK/TAB LET REAGNT NON-AUTO MICRSCPY BLOOD 01177 [facility] COUNT 4 SUZI SUZI COMPLETE [facility] AUTOMATED COMPREHEN 62977 [facility] SIVE 4 [facility] METABOLIC [place] [address] [facility] THYROID 4 [facility] STIMULATI [facility] NG HORMONE TSH ARTHROCEN 95124 [facility] PETTEY TESIS 4 PHYSICIAN ALFONSO ASPIR&/IN S GROUP J MAJOR JT/[place] W/[place] [address] [facility] THYROID 4 [facility] STIMULATI INC INC NG HORMONE TSH COMPREHEN 90641 [facility] SIVE 4 [facility] METABOLIC INC INC PANEL BLOOD 54970 [facility] COUNT 4 [facility] COMPLETE INC INC AUTO&AUTO DIFRNTL WBC URNLS DIP 18411 INDIO BORJAS 4 [facility] STICK/TAB INC INC LET REAGENT AUTO MICROSCOP Y COLLECTIO 64249 INDIO Laguerre VENOUS 4 [facility] BLOOD INC INC VENIPUNCT URE LIPID 62082 [facility]AS PANEL 4 [facility] INC INC MRI ANY 34491 MAINE KLARISSA JT LOWER 4 MEDICAL KASSANDRA EXTREM IMAGING W/O ASS CONTRAST MATRL THERAPEUT 18628 [facility] IC 4 [facility] PROPHYLAC INC INC TIC/DX INJECTION SUBQ/IM DIAGNOSTI G0204 [facility]AS C 3 [facility] MAMMOGRAP INC INC HY INCL CAD WHEN PERF; BILAT HYALURONA J7325 [facility] PETTEY N/DERIV 3 PHYSICIAN ALFONSO SYNVISC/S S GROUP YNVISC-ON E IA INJ 1 MG ARTHROCEN 45247 [facility] PETTEKimberly TESIS 3 PHYSICIAN ALFONSO ASPIR&/IN S GROUP J MAJOR JT/BURSA W/O US APPL 78061 MIAN ORTIZ MODALITY 3 MATT 1/> AREAS [place] [address] MIAN ORTIZ 1/> AREAS 3 MATT EACH 15 CHIROPRAC MIN TIC CENTE NEUROMUSC REEDUCA THERAPEUT 76445 MIAN ORTIZ IC PX 1/> 3 MATT AREAS CHIROPRAC EACH 15 TIC CENTE MIN EXERCISES APPLICATI 48615 MIAN DIANA ON 3 MATT MODALITY CHIROPRAC 1/> AREAS TIC CENTE HOT/COLD PACKS CHIROPRAC 70550 MIAN DIANA TIC 3 MATT MANIPULAT CHIROPRAC JAG TX TIC CENTE SPINAL 3-4 REGIONS CHIROPRAC 62367 MIAN DIANA TIC 3 MATT MANIPULAT CHIROPRAC JAG TX TIC CENTE SPINAL 3-4 REGIONS APPLICATI 68501 MIAN DIANA ON 3 MATT MODALITY CHIROPRAC 1/> AREAS TIC CENTE HOT/COLD PACKS THERAPEUT 47020 MIAN DIANA IC PX 1/> 3 MATT AREAS CHIROPRAC EACH 15 [place] [address] MIAN DIANA 1/> AREAS 3 MATT EACH 15 CHIROPRAC MIN TIC CENTE NEUROMUSC REEDUCA APPL 78498 MIAN DIANA MODALITY 3 MATT 1/> AREAS CHIROPRAC TRACTION TIC CENTE MECHANICA L APPL 90513 MIAN DIANA MODALITY 3 MATT 1/> AREAS CHIROPRAC TRACTION TIC CENTE MECHANICA L THERAPEUT 68765 MIAN DIANA IC PX 1/> 3 MATT AREAS CHIROPRAC EACH 15 TIC CENTE MIN EXERCISES APPLICATI 08420 MIAN ORTIZ ON 3 MATT MODALITY CHIROPRAC 1/> AREAS TIC CENTE HOT/COLD PACKS CHIROPRAC 67552 MIAN DIANA TIC 3 MATT MANIPULAT CHIROPRAC JAG TX TIC CENTE SPINAL 3-4 REGIONS BOTULINUM J0585 [facility] ÁNGEL TOXIN 3 N TYPE A NEUROLOGY PER UNIT CHEMODERV 67694 [facility] ATE 3 N FACIAL/TR NEUROLOGY IGEM/CERV MUSC MIGRAINE INJECTION J0171 [facility] 3 N N ADRENALIN [facility] EPINEPHRI NE 0.1 MG SEPTOPLAS 86369 [facility] TY/SUBMUC 3 N N OUS [facility] RESEC [facility]OSPUNC HEALTH HOSPITA W/WO CARTILAGE GRF NASAL/SIN 23061 [facility] US 3 N N ENDOSCOPY [facility] HOSPITA HOSPITA W/MAXILLA RY ANTROSTOM Y SUBMUCOUS 09399 [facility] RESCJ 3 N N INFERIOR [facility] TURBINATE HOSPITA HOSPITA PRTL/COMP L INJ Q9968 [facility] NONRADIAT 3 N N JAG [facility] NONCONTRA HOSPITA HOSPITA ST VIZ ADJUNCT 1 MG NASAL/SIN 23948 [facility] 3 N N ENDOSCOPY [facility] HOSPITA HOSPITA W/ETHMOID ECTOMY TOTAL NASAL/SIN 09271 [facility] NDSC 3 N N W/FRONTAL [facility] SINUS HOSPITA HOSPITA EXPLORATI ON NASAL/SIN 71963 [facility] 3 N N ENDOSCOPY [facility] HOSPITA HOSPITA W/SPHENOI DOTOMY INJECTION J0690 [facility] 3 N N CEFAZOLIN [facility] SODIUM HOSPITA HOSPITA 500 MG STRTCTC 37649 [facility] CPTR 3 N N ASSTD PX [facility] EXTRADURA HOSPITA HOSPITA L CRANIAL INJECTION J3010 [facility] FENTANYL 3 N N CITRATE [facility] 0.1 MG HOSPITA HOSPITA INJECTION J2370 [facility] 3 N N PHENYLEPH [facility] RINE HCL HOSPITA HOSPITA UP TO 1 ML INJECTION J2405 [facility] 3 N N ONDANSETR [facility] ON HCL HOSPITA HOSPITA PER 1 MG ANESTHESI 03843 SAMMI Damian NOSE & 3 ANESTHESI ELIU ACCESSORY A GROUP SINUSES PS NOS DECALCIFI 22147 [facility] CATION 3 N N PROCEDURE [facility] [place] [address] [facility] SURG 3 N N PATHOLOGY [facility] HOSPITA HOSPITA GROSS&MIKAL ROSCOPIC EXAM INJECTION J1100 [facility] 3 N N DEXAMETHO [facility] SONE HOSPITA HOSPITA SODIUM PHOSPHATE 1 MG INJECTION J2001 [facility] 3 N N LIDOCAINE [facility] HCL HOSPITA HOSPITA INTRAVENO US INFUS 10 MG BLOOD 45711 [facility] COUNT 3 N N HEMATOCRI [facility] T HOSPITA HOSPITA COLLECTIO 62509 [facility] N VENOUS 3 N N BLOOD [facility] VENIPUNCT HOSPITA HOSPITA URE BLOOD 79140 [facility] COUNT 3 N N HEMOGLOBI [facility] N HOSPITA HOSPITA INTRACUTA 70083 EAR, NOSE SHASHY NEOUS 3 AND HARESH TESTS THROAT W/ALLERGE SPECIAL ABNER EXTRACTS PERCUTANE 59601 EAR, NOSE SHASHY OUS TESTS 3 AND HARESH THROAT W/[place] [address] [facility] [place] [facility]AL[place] ELIU MAXILLOFA 3 RADIOLOGY CIAL W/O CONTRAST MATERIAL NASOPHARY 37257 EAR, NOSE SHASHY NGOSCOPY 3 AND HARESH W/[place] [address] MIAN ORTIZ 1/> AREAS 3 MATT EACH 15 CHIROPRAC MIN TIC CENTE NEUROMUSC REEDUCA APPL 78664 MIAN ORTIZ MODALITY 3 MATT 1/> AREAS CHIROPRAC TRACTION TIC CENTE MECHANICA L CHIROPRAC 26402 MIAN ORTIZ TIC 3 MATT MANIPULAT CHIROPRAC JAG TX TIC CENTE SPINAL 3-[place] [address] MIAN ORTIZ 1/> AREAS 3 MATT EACH 15 CHIROPRAC MINUTES TIC CENTE MASSAGE OPHTHALMO 40021 JACKELYN HAYDEN SCPY 3 JAM JAM EXTENDED RETINAL DRAWING I&R 1ST DETERMINA 12854 JACKELYN HAYDEN TION 3 JAM JAM REFRACTIV E STATE CHIROPRAC 37773 MIAN ORTIZ TIC 3 MATT MANIPULAT CHIROPRAC JAG TX TIC CENTE SPINAL 3-[place] [address] MIAN ORTIZ 1/> AREAS 3 MATT EACH 15 CHIROPRAC MINUTES TIC CENTE MASSAGE APPL 68961 MIAN ORTIZ MODALITY 3 MATT 1/> AREAS [place] [address] MIAN ORTIZ 1/> AREAS 3 MATT EACH 15 CHIROPRAC [place] [address] MIAN ORTIZ 1/> AREAS 3 MATT EACH 15 CHIROPRAC MIN TIC CENTE NEUROMUSC REEDUCA APPL 77998 MIAN ORTIZ MODALITY 3 MATT 1/> AREAS [place]OPR[place] [address] MIAN ORTIZ 1/> AREAS 3 MATT EACH 15 CHIROPRAC MINUTES TIC CENTE MASSAGE CHIROPRAC 62021 MIAN ORTIZ TIC 3 MATT MANIPULAT CHIROPRAC JAG TX TIC CENTE SPINAL 3-4 REGIONS THERAPEUT 03330 [facility] IC 2 [facility] PROPHYLAC INC INC TIC/DX INJECTION SUBQ/IM COMPUTER- 37093 MAINE KLARISSA AIDED 2 MEDICAL KASSANDRA DETECTION IMAGING ASS SCREENING MAMMOGRAP HY SCREENING G0202 MAINE KLARISSA 2 MEDICAL KASS[place] MAMMOGRAP IMAGING HY BENEDICT ASS INCL CAD WHEN PERFORMD CHIROPRAC 75578 MIAN CALVERT DOMINIQUE TIC 2 MANIPULAT CHIROPRAC JAG TX TIC CENTE SPINAL 3-4 REGIONS CHIROPRAC 47365 MIAN CALVERT DOMINIQUE TIC 2 MANIPULAT CHIROPRAC JAG TX TIC CENTE SPINAL 3-4 [place] 13684 CHARLES PERERA DIP 2 DILMA PEREZ SONJA STICK/TAB LET REAGNT NON-AUTO MICRSCPY ANNUAL G0438 CHARLES Bojorquez WELLNESS 2 DILMA PERERA MD VISIT; PERSONALI Z PPS INIT VISIT BLOOD 66475 CHARLES PERERA OCCULT 2 DILMA CASILLAS PEROXIDAS E ACTV QUAL FECES 1 DETER CYTP C/V 77420 BIO BIO AUTO THIN 2 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 PREPJ SCR IES IES MNL RESCR PHYS IADNA 39117 BIO BIO NEISSERIA 2 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 GONORRHOE IES IES AE AMPLIFIED PROBE TQ IADNA NOS 61032 BIO BIO 2 REFERNCE REFERNCE AMPLIFIED LABORATOR LABORATOR PROBE TQ IES IES EACH ORGANISM IADNA 54474 BIO BIO CHLAMYDIA 2 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 TRACHOMAT IES IES IS AMPLIFIED PROBE TQ CHIROPRAC 55767 MIAN DIANA TIC 2 MATT MANIPULAT CHIROPRAC JAG TX TIC CENTE SPINAL 3-4 REGIONS CHIROPRAC 20828 [place] CALVERT DOMINIQUE TIC 2 MANIPULAT CHIROPRAC JAG TX TIC CENTE SPINAL 3-4 REGIONS CHIROPRAC 81448 [place] CALVERT DOMINIQUE TIC 2 MANIPULAT CHIROPRAC JAG TX TIC CENTE SPINAL 3-4 REGIONS CHIROPRAC 21553 [place] CALVERT DOMINIQUE TIC 2 MANIPULAT CHIROPRAC JAG TX TIC CENTE SPINAL 3-4 REGIONS CHIROPRAC 98113 [place] CALVERT DOMINIQUE TIC 2 MANIPULAT CHIROPRAC JAG TX TIC CENTE SPINAL 3-4 REGIONS RADEX 39151 [facility] SPINE 2 MEDICAL KASSANDRA LUMBOSACR IMAGING AL ASS MINIMUM 4 VIEWS INJ J0702 [facility] BETAMETHA 2 JAM JAM SONE ACETATE & PHOSPHATE 3 MG INFLUENZA Q2036 [facility] VACC 2 JAM JAM SPLIT VIRUS 3 YRS & > IM FLULAVAL INJECTION J1100 [facility] 2 JAM JAM DEXAMETHO SONE SODIUM PHOSPHATE 1 MG URNLS DIP 88032 [facility] BROCK 2 JAM JAM STICK/TAB LET RGNT NON-AUTO W/[place] [address] [facility] [place] ZOH[place] MAT ABDOMEN & 2 RADIOLOGY PELVIS W/O CONTRAST MATERIAL URNLS DIP 76479 [place] [facility] 2 [facility] STICK/TAB HOSPITAL HOSPITAL LET REAGENT AUTO MICROSCOP Y RADEX 85961 [facility] BORJ[facility] FOOT 2 [facility] COMPLETE INC INC MINIMUM 3 VIEWS TDAP 18209 [facility]ORJ[facility] VACCINE 7 2 [facility] YRS/> IM INC INC RADEX TOE 73171 [facility] B[facility] MINIMUM 2 [facility]OS[facility] 2 VIEWS INC INC RADIOLOGI 97128 [place] KLARISSA C 2 MEDICAL [place] EXAMINATI IMAGING ON KNEE [address] [place] [address] [place] ABDOMEN & 2 RADIOLOGY CAR PELVIS W/O CONTRAST MATERIAL CUL BACT [address] ADDL METHS DEFINITIV E EA ISOL SMR PRIM [address] GRAM/GIEM SA STAIN BCT FUNGI/JOSE L CUL BACT 82419 [facility] XCPT [address] [place] [address] URINE BLOOD/STO OL AEROBIC ISOL COMPREHEN 17038 [facility] SIVE [address] [place] [address] METABOLIC PANEL HEMOGLOBI [address] GLYCOSYLA STEFANO A1C PREALBUMI [address] DEBRIDEME [address] SUBCUTANE OUS TISSUE 20 SQ CM/< COLLECTIO 98597 [facility] VENOUS [address] [place] [address] BLOOD VENIPUNCT URE INJECTION J1100 MAGED LYNNE 1 JANE JANE DEXAMETHO SONE SODIUM PHOSPHATE 1 MG MRI LOWER 52903 MAINE KLARISSA EXTREM 1 MEDICAL KASSANDRA OTH/THN IMAGING JT W/O ASS CONTR MATRL RADIOLOGI 39635 [facility] [place] NIKKI C 1 RADIOLOGY RHO EXAMINATI ON KNEE 3 VIEWS LOCM Q9967 [phone] [facility] MG/[facility] IODINE CONCENTRA TION PER ML HI OSM Q9963 [facility] [place] CONTRST 1 [facility] [phone] MG/[place] [address] [facility] [place] MAT ABDOMEN & 1 RADIOLOGY PELVIS W/CONTRAS T MATERIAL URNLS DIP 59980 [facility] STICK/TAB INC INC LET REAGENT AUTO MICROSCOP Y MRI LOWER 21516 KRISHNA KELLER EXTREM [address] [facility] JT W/O & W/CONTR MATR NRV CNDJ 26234 EPISCOPAL JULIETA T AMPLITUDE 1 NEUROLOGY & SERVICES LATENCY EACH NERVE SENSORY H-REFLEX 40680 EPISCOPAL JULIETA Crowley AMPLT&LAT 1 NEUROLOGY ENCY SERVICES GASTRCN/S OLEUS MUSC NRV CNDJ 47320 EPISCOPAL JULIETA T AMPLT&LAT 1 NEUROLOGY NCY EA SERVICES NRV MOTR W/O F-WAVE STD NRV CNDJ 62727 [facility] AMPLT&LAT 1 EPISCOPAL EPISCOPAL ENCY EA HOSP HOSP NRV MOTOR W/F-WAVE STD RADEX 18998 [facility] [place] ARCHER FOOT 1 RADIOLOGY KAHLIL COMPLE[place] [address] [place] [address] [facility] ABDOMEN & 1 [facility] PELVIS INC INC W/O CONTRAST MATERIAL URNLS DIP 35023 [facility] 1 [facility] STICK/TAB INC INC LET REAGENT AUTO MICROSCOP Y 3D 38190 [facility] RENDERING 1 [facility] INC INC W/INTERP& POSTPROC DIFF WORK STATION CT LOWER 03199 [facility] EXTREMITY 0 N N W/O [facility] CONTRAST HOSPITA HOSPITA MATERIAL INITIAL 49092 [place] 1ST 0 EMERGENCY III CHERYL DEGREE SERVICES BURN LOCAL TX INJECTION J2405 [facility] 0 N N ONDANSETR [facility] COMMUNITY ON HCL HOSPITA HOSPITA PER 1 [place] [address] PATHOLOGY PATHOLOGY SURG 0 & & PATHOLOGY CYTOLOGY CYTOLOGY GROSS LAB LAB EXAMINATI ON ONLY RADIOLOGI 68728 [facility] C 0 N N EXAMINATI COMMUNITY [facility] ON FOOT 2 HOSPITA HOSPITA VIEWS COMPREHEN 32456 [facility] SIVE 0 N N METABOLIC COMMUNITY COMMUNITY PANEL HOSPITA HOSPITA FLUOROSCO 51693 [facility] PY SPX UP 0 N N TO 1 COMMUNITY COMMUNITY HOUR HOSPITA HOSPITA PHYS/QHP TIME RADIOLOGI 39669 [facility] [place] [facility] MAT C EXAM 0 RADIOLOGY CHEST 2 VIEWS FRONTAL&L ATERAL UNLISTED 70449 [facility] ANESTHESI 0 N N A COMMUNITY COMMUNITY PROCEDURE HOSPITA HOSPITA INJECTION J2250 [facility] 0 N N [facility] HCL PER HOSPITA HOSPITA 1 MG BLOOD 84170 [facility] COUNT 0 N N COMPLETE [facility] AUTO&AUTO HOSPITA HOSPITA DIFRNTL WBC COLLECTIO 33750 [facility] N VENOUS 0 N N BLOOD [facility] VENIPUNCT HOSPITA HOSPITA URE ECG 20014 [facility] ROUTINE 0 N N ECG [facility] W/LEAST HOSPITA HOSPITA 12 LDS TRCG ONLY W/O I&R REMOVAL 34229 [facility] FOREIGN 0 N N BODY FOOT [facility] HOSPITA HOSPITA COMPLICAT ED ANES 57733 [place] RICHARD INTEG 0 ANESTHESI JOHN EXTREMITI A GROUP ES ANT PSC TRUNK & PERINEUM NOS RADIOLOGI 29992 [facility]IAN ESPOSITO C 0 EMERGENCY DORIAN EXAMINATI SERVICES ON FOOT 2 VIEWS RADEX 23491 [facility] FOOT 0 N N [facility] MINIMUM 3 HOSPITA HOSPITA VIEWS RADIOLOGI 64638 [facility] [place], C EXAM 0 RADIOLOGY MELISSA D CHEST 2 VIEWS FRONTAL&L ATERAL RADIOLOGI 46733 MAINE KLARISSA C 0 MEDICAL EUNICE EXAMINATI IMAGING ON PELVIS ASSOCIATE 1/2 S VIEWS RADEX HIP 06354 MAINE KLARISSA, 0 MEDICAL EUNICE UNILATERA IMAGING L ASSOCIATE COMPLETE S MINIMUM 2 VIEWS URNLS DIP 73989 [facility] 0 [facility] STICK/TAB INC INC LET REAGENT AUTO MICROSCOP Y ANES 43214 [place] DEPA, UPPER GI 0 ANESTHESI MARCIA ENDOSCOPY A GROUP PROXIMAL PSC TO DUODENUM EGD 602[address] MICHELLE OWENS- TRANSORAL 0 ALEXANDRU, ALEXANDRU, [id number] ROSA LEE SINGLE/MU LTIPLE SPECIAL 62289 PATHOLOGY PATHOLOGY STAIN 0 & & GROUP 1 CYTOLOGY CYTOLOGY MICROORGA LAB LAB NISMS I&R SPCL STN 03741 PATHOLOGY PATHOLOGY 2 I&R 0 & & EXCPT CYTOLOGY CYTOLOGY MICROORG/ LAB LAB ENZYME/[place] L[place] [address] PATHOLOGY PATHOLOGY SURG 0 & & PATHOLOGY CYTOLOGY CYTOLOGY LAB LAB GROSS&[place] [address] [facility] AMYLASE 0 [facility] INC INC CREATINE 30402 IND[facility] BORJAS KINASE MB 0 [facility] FRACTION INC INC ONLY COMPREHEN 29977 INDIO [facility]IO SIVE 0 [facility] METABOLIC INC INC PANEL ECG 31923 INDIO ADAM, ROUTINE 0 [facility] W/LEAST PROF SERV 12 LDS I&R ONLY ECG 39941 INDIOCYRUS BORJAS ROUTINE 0 [facility] ECG INC INC W/LEAST 12 LDS TRCG ONLY W/O I&R CREATINE 16959 INDIO NIDIO KINASE 0 [facility] [place] [address] [facility] LIPASE 0 [place] [address] [facility] TROPONIN 0 [facility] QUANTITAT INC INC JAG BLOOD 72282 [facility] BORJ[facility] COUNT 0 [facility] COMPLETE INC INC AUTO&AUTO DIFRNTL WBC HYALURONA J7325 ESTRELLA BANEGAS N/DERIV 0 MEDICAL ODELL T SYNVISC/S SERV YNVISC-ON FOUNDATIO E IA INJ 1 MG APPL 82269 JUDY KIM MODALITY 0 [place] 80000/[facility] ULTRASOUN D EA 15 MIN THERAPEUT 51924 JUDY KIM IC PX 1/> 0 [facility] EACH 15 MIN EXERCISES INJECTION J3301 [facility] T TRIAMCINO SERV LONE FOUNDATIO ACETONIDE NOS 10 MG RADIOLOGI 55512 INDIO Suárez EXAM 9 [facility] BOTH INC INC KNEES STANDING ANTEROPOS T ARTHROCEN 03046 GIOVANNY REYNOLDS 9 MEDICAL ODELL T ASPIR&/IN SERV J MAJOR FOUNDATIO JT/BURSA W/O US RADIOLOGI 21166 [place] KLARISSA, C 9 MEDICAL EUNICE EXAMINATI IMAGING ON KNEE ASSOCIATE 1/2 VIEWS S MRI ANY 60746 CN[facility] [place] VALEROT LOWER 9 RADIOLOGY ADRIANA FAROOQ W/O CONTRAST MATRL RADIOLOGI 71858 [facility] KELSEAFOUZIA C 9 [facility] ON KNEE 3 VIEWS RADIOLOGI 00364 CNTR[facility] Kamini SUMNER 9 RADIOLOGY J EXAMINATI ON KNEE 1/2 VIEWS GAUZE A6222 CCS [facility] IMPREG 9 MEDICAL MEDICAL NOT H2O NL SALINE/HY DROGEL 16 SQ/< SPCLTY A6251 CCS [facility] ABSORB 9 MEDICAL MEDICAL DRESS STERL 16 SQ/<NO ADHES BORDR TAPE A4452 CCS CCS [place] 9 MEDICAL MEDICAL F PER 18 SQUARE INCHES LEVEL III 59814 ESTRELLA DE LA ROSA SURG 9 MEDICAL MEDICAL PATHOLOGY SERV SERV FOUNDATIO FOUNDATIO GROSS&MIKAL ROSCOPIC EXAM BX SKIN 10165 [facility] 9 Y Y OUS&/MUCO [facility] US MEMBRANE 1 LESION BLOOD 27501 [place] [facility] COUNT 9 [facility] AUTOMATED CREATINE 54872 [facility] KINASE 9 [facility] COLLECTIO 30086 [facility] N VENOUS 9 [facility] VENIPUNCT URE LIPID 08820 [facility] PANEL [address] [place] [address] [place] [address] [facility] THYROID 9 [facility] NG [facility]ORMONE TSH COMPREHEN 80164 [facility] SIVE [address] [facility] [address] PELVIS 73447 UNIVERSIT UNIVERSIT 9 Y Y W/[facility] [place] [address] UNIVERSIT UNIVERSIT ABDOMEN 9 Y Y W/[facility] T MATERIAL LOCM Q9967 UNIVERSIT UNIVERSIT [phone] Y Y MG/ML [facility] IODINE CONCENTRA TION PER ML COLLECTIO 85710 [facility] N VENOUS 9 Y Y [facility] VENIPUNCT URE BLOOD 47759 [facility]IT UNIVERSIT COUNT 9 Y Y [facility] PLANO AUTO&AUTO DIFRNTL WBC BASIC 55295 [facility] METABOLIC 9 Y Y [facility] CALCIUM TOTAL ALGINAT/O A6196 CCS CCS TH FIBER 9 MEDICAL MEDICAL GELL DRESS STERIL PAD 16 SQ/< SPCLTY A6251 CCS CCS ABSORB 9 MEDICAL MEDICAL DRESS STERL 16 SQ/<NO ADHES BORDR TAPE A4452 [facility]CS [facility]CS [place] 9 MEDICAL MEDICAL F PER 18 SQUARE INCHES CULTURE 12193 [facility] BACTERIAL 9 Y Y [facility] AEROBIC W/ID ISOLATES SCR G0145 PATHOLOGY PATHOLOGY CYTOPATH 9 & & CERV/VAG CYTOLOGY CYTOLOGY SCR LAB LAB AUTO&MNL RSCR PHYS SUSCEPTIB 55781 [facility] ILITY 9 [facility] SAW Instrument [facility] STUDY ANTIMICRO BIAL DISK METHOD CULTURE 02654 [facility] TYPING 9 [facility] IMMUNOLOG IC OTH/THN IMMUNOFLU ORES CUL BACT 37304 [facility] XCPT 9 [facility] SAW Instrument [facility] URINE BLOOD/STO OL AEROBIC ISOL RADEX 09202 [place] [facility] SHOULDER 9 [facility] MINIMUM 2 VIEWS THERAPEUT 70595 TOMER SMALLWOOD IC PX 1/> 8 [facility] EACH 15 PSC MIN EXERCISES THERAPEUT 71505 ROMEO ROSA PX 1/> 8 [facility] J EACH 15 PSC MIN EXERCISES MANUAL 30493 TOMER SMALLWOOD, THERAPY 8 [facility] TQS 1/> ASSOC J REGIONS PSC EACH 15 MINUTES MANUAL 76277 TOMER SMALLWOOD, THERAPY 8 [facility] REHAB [facility]ARCOS TQS 1/> ASSOC J REGIONS PSC EACH 15 MINUTES THERAPEUT 51521 TOMER SMALLWOOD IC PX 1/> 8 [facility] ASSOC J EACH 15 PSC MIN EXERCISES THERAPEUT 10526 TOMER SMALLWOOD IC PX 1/> 8 [facility] ASSOC J EACH 15 PSC MIN EXERCISES MANUAL 23313 TOMER SMALLWOOD, THERAPY 8 NAL REHAB MARCOS TQS 1/> ASSOC J REGIONS PSC EACH 15 MINUTES MANUAL 54978 TOMER SMALLWOOD, THERAPY 8 NAL REHAB [facility]ARCOS TQS 1/> ASSOC J REGIONS PSC EACH 15 MINUTES THERAPEUT 81226 TOMER SMALLWOOD, IC PX 1/> 8 [facility] ASSOC J EACH 15 PSC MIN EXERCISES PHYSICAL 10493 TOMER SMALLWOOD, THERAPY 8 NAL REHAB MARCOS EVALUATIO ASSOC J N PSC THERAPEUT 35223 TOMER SMALLWOOD, IC PX 1/> 8 [facility] REHAB [facility]ARC[facility] AREAS ASSOC J EACH 15 PSC MIN EXERCISES APPL 62831 TOMER SMALLWOOD, MODALITY 8 NAL REHAB MARCOS 1/> AREAS ASSOC J PSC ULTRASOUN D EA 15 MIN MRI 97921 [facility] SPINAL 8 [facility] LUMBAR W/O CONTRAST MATERIAL NDL EMG 1 25689 TERRY STEWART, XTR W/WO 8 [place] LERMA RELATED PARASPINA L AREAS NRV CNDJ 58664 TERRY STEWART, AMPLITUDE 8 [place] LERMA & LATENCY EACH NERVE SENSORY NRV CNDJ 10621 TERRY STEWART, AMPLT&LAT 8 [place] LERMA ENCY EA NRV MOTOR W/F-WAVE STD MRI 10501 EUNICE C KLARISSA, SPINAL 8 KLARISSA EUNICE CANAL LUMBAR W/O CONTRAST MATERIAL INJECTION J1030 FAMILY FAMILY 8 CARE CARE METHYLPRE ASSOCIATE ASSOCIATE DNISOLONE S S ACETATE 40 MG Encounters Encounter Start End Date Code Location Performer Type Date OFFICE 67877 CARDIOVAS CEVALLOS [facility] 7 7 CULAR & T VISIT SLEEP 25 CONSU MINUTES [facility] 7 7 [facility] 7 7 [facility] T OFFICE 44882 [facility] 7 7 T VISIT ORTHOPAED 15 ICS PSC MINUTES [facility] [place] [facility] 7 7 [facility] T OFFICE 53214 [facility] 7 7 CULAR & T VISIT SLEEP 15 CONSU [facility] [place] [facility] 7 7 [facility] [place] [facility] 7 7 [facility] T OFFICE 73596 [facility] 7 7 [facility] NEW 30 CLINIC MINUTES PSC OFFICE 32317 [facility] 7 7 T VISIT ORTHOPAED 15 ICS PSC MINUTES OFFICE 39116 YAMIL TAYLOR [facility] 7 7 REGIONAL T NEW 45 PHYSICIAN MINUTES [facility] YAMIL - 7 7 GENERAL ACUTE HOSPITALE OFFICE 04474 [facility]AS [facility] 7 7 CULAR & T VISIT SLEEP 15 CONSU [facility] [place] [facility] 7 7 [facility] T OFFICE 30614 [facility] 7 7 T VISIT ORTHOPAED 10 ICS PSC MINUTES EMERGENCY 46093 [facility] 7 [facility] T VISIT HIGH/URGE NT [facility] [place] [facility] 7 7 [facility] IND[facility] - 7 7 [facility] T OFF[facility] 07708 YAMIL FUENTES OUTPSYCHIATRIC 7 7 DIGESTIVE T NEW 45 CARE MINUTES CENTER OFFICE 69441 [facility] 7 7 CULAR & T VISIT SLEEP 15 CONSU [facility] EPISCOPAL - 7 7 [facility] T OFFICE 46813 [facility]AS [facility] 7 7 CULAR & T VISIT SLEEP 25 CONSU MINUTES [facility] [place] - 7 7 [facility] T EMERGENCY 01249 [facility] 7 7 SHADY VISIT EMERGENCY HIGH PHYS SEVERITY& THREAT FUNCJ EMERGENCY 47393 [place] 7 7 [facility] T VISIT HIGH/URGE NT SEVERITY OFFICE 68261 [facility]AS [facility] 7 7 CULAR & T VISIT SLEEP 25 CONSU MINUTES [facility]OSP[facility] [place] - 7 7 [facility] INDIO - 7 7 [facility] 7 7 [facility] EMERGENCY 85950 [facility] 7 7 [facility] T VISIT HIGH/URGE NT SEVERITY EMERGENCY 98367 [facility] 7 7 SHADY VISIT EMERGENCY HIGH PHYS SEVERITY& THREAT FUNCJ OFFICE 46443 [facility]OCK LYNNE [facility] 7 7 AND T VISIT MAGED, 25 PSC MINUTES OFFICE 55171 [facility] 7 7 T VISIT ORTHOPAED 10 ICS PSC MINUTES EMERGENCY 48275 INDIO 6 6 [facility] T VISIT LIMITED/M INOR PROB EMERGENCY 07741 JUSTIN IQBALH 6 6 [facility]YSICIAN [facility] S, PLL T VISIT HIGH/URGE NT SEVERITY HOSPITAL INDIO - 6 6 [facility] T OFFICE 14590 ALLERGY ZIEGLER MAR OUTPSYCHIATRIC 6 6 PARTNERS T VISIT OF [place] 40 CO MINUTES OFFICE 71588 [facility]ARTI OUTPS[facility]CHIATRIC 6 6 GRE T VISIT ORTHOPAED 15 ICS PSC MINUTES HOSPITAL INDIO - 6 6 [facility] OUT[facility]IEN [facility] OFFICE 83293 CHASTITY KIDD OUTPATIEN 6 6 GRE T VISIT ORTHOPAED 15 ICS PSC MINUTES OFFICE 30494 ALLERGY ZIEGLER MAR OUTPATIEN 6 6 PARTNERS T VISIT OF [place] 25 CO MINUTES HOSPITAL INDIO - 6 6 [facility] IND[facility] - 6 6 [facility] EM[facility] 30012 JUSTIN RUELAS 6 6 PHYSICIAN KADY GONZALEZC T VISIT MODERATE SEVERITY HOSPITAL INDIO - 6 6 [facility] EMERGENCY 59633 INDIO 6 6 [facility] T VISIT LIMITED/M INOR [facility] INDIO - 6 6 [facility] [place] ISELAON - 6 6 [facility] T OFFICE 30021 CHASTITY LUIS OUTPATIEN 6 6 SOPHIE T VISIT ORTHOPAED 15 ICS PSC MINUTES HOSPITAL INDIO - 6 6 [facility] EMERGENCY 29051 JUSTIN RICE 6 6 PHYSICIAN Tanisha [facility] T VISIT MODERATE SEVERITY OFFICE 08464 [facility] OUTPATIEN 6 6 [place] T VISIT ORTHOPAED 15 ICS PLC MINUTES OFFICE 26516 INDIO SILVER [facility] OUTPATIEN 6 6 MEMORIAL T VISIT HOSPITAL 15 MINUTES OFFICE 16081 ALLERGY ZIEGLER MAR OUTPATIEN 6 6 PARTNERS T VISIT OF [place] 25 CO MINUTES HOSPITAL INDIO - 5 5 [facility] OFFICE 30373 ALLERGY ZIEGLER MAR OUTPATIEN 5 5 PARTNERS T VISIT OF [place] 25 CO MINUTES OFFICE 02567 MIAN VICTORIA OUTPATIEN 5 5 VISION ANG T VISIT CENTER 10 MINUTES HOSPITAL GE[facility]GEW - 5 5 N OUTPATIEN COMM[facility]TIY [facility] 5 5 N OUTPATIEN COMMUNTIY T HOSPITA OFFICE 44077 [facility] 5 5 [place] T VISIT ORTHOPAED 25 ICS PLC MINUTES OFFICE 57529 [facility] OUTPATI[facility] 5 5 [place] T VISIT ORTHOPAED 15 ICS PLC MINUTES OFFICE 02237 [facility] MAGED OUTPATIEN 5 5 AND JANE T VISIT MAGED, 15 PSC MINUTES OFFICE 72050 ROMEROARIANNELor LAFLEUR OUTPATIEN 5 5 N T VISIT NEUROLOGY 15 MINUTES OFFICE 45964 ALLERGY ZIEGLER MAR OUTPATIEN 5 5 PARTNERS T VISIT OF [place]ILLI[place] 25 CO MINUTES OFFICE 67368 ALLERGY ZIEGLER MAR OUTPATIEN 5 5 PARTNERS T NEW 45 OF [place] MINUTES CO OFFICE 21213 [facility] OUTPATIEN 5 5 [place] T NEW 30 ORTHOPAED MINUTES ICS PLC OFFICE 51552 DEON HOROWITZ CIARRA OUTPATIEN 5 5 N T VISIT NEUROLOGY 15 MINUTES HOSPITAL INDIO - 5 5 [facility] OUTPATIEN INC T EMERGENCY 01958 INDIO 5 5 [facility] DEPARTMEN INC T VISIT MODERATE SEVERITY HOSPITAL INDIO - 5 5 [facility] OUTPATIEN INC T HOSPITAL DEON - 5 5 N OUTPATIEN COMMUNTIY T [facility] - 5 5 N OUTPATIEN COMMUNTIY T HOSPITA OFFICE 34146 [facility]PATI[facility] 5 5 N T VISIT NEUROLOGY 15 MINUTES HOSPITAL INDIO - 5 5 [facility] OUTPATIEN INC T H[facility]ITAL [facility] - 5 5 N OUTPATIEN COMMUNTIY T HOSPITA OFFICE 80230 DEON HOROWITZ CIARRA OUTPATIEN 5 5 N T VISIT NEUROLOGY 25 MINUTES HOSPITAL GEORGEARIANNEW - 4 4 N OUTPATIEN COMMUNITY T HOSPITA OFFICE 43726 SAMMI ADAN OUTPATIEN 4 4 Knodium, IBTgames T NEW 30 MINUTES OFFICE 48522 GILLIAN FRENCH OUTPATIEN 4 4 GRE GRE T NEW 45 MINUTES OFFICE 87267 [facility] KAROLINA OUTPATIEN 4 4 PHYSICIAN JAM T VISIT S GROUP 15 MINUTES OFFICE 79311 MAGED MAGED OUTPATIEN 4 4 JANE JANE T VISIT 15 MINUTES HOSPITAL [facility] - 4 4 [facility] OUTPATIEN INC [facility]OSPITAL INDIO - 4 4 [facility] OUTPATIEN INC T OFFICE 27977 MAGED MAGED OUTPATIEN 4 4 JANE JANE T VISIT 15 MINUTES EMERGENCY 84443 AMBER ROLLINS 4 4 SHADY [facility] EMERGENCY T VISIT SERVI MODERATE SEVERITY EMERGENCY 08397 RIPLEYVANESSA 4 4 N [facility] COMM[facility] T VISIT HOSPITA LOW/MODER SEVERITY HOSPITAL DEON - 4 4 N OUTPATIEN COMMUNITY T HOSPITA EMERGENCY 70501 INDIO 4 4 [facility] DEPARTMEN INC T VISIT LOW/MODER SEVERITY HOSPITAL [facility] - 4 4 [facility] OUTPATIEN INC T EMERGENCY 16102 AMBER LOUISE 4 4 SHADY DEPARTMEN EMERGENCY T VISIT PHYS HIGH/URGE NT SEVERITY OFFICE 28489 [facility] KAROLINA OUTPATIEN 4 4 PHYSICIAN JAM T VISIT S GROUP 15 MINUTES OFFICE 75760 ANA GERARD OUTPATIEN 4 4 ORDER CONTROL CLERK BLOOD BANK, DEN T NEW 30 PSC MINUTES HOSPITAL INDIO - OTHER 4 4 MEM [facility] HOSPITAL INDIO - 4 4 [facility] OUTPATIEN INC T OFFICE 63294 [facility] PETJENY OUTPATIEN 4 4 PHYSICIAN JAM T VISIT S GROUP 15 MINUTES HOSPITAL INDIO - 4 4 [facility] OUTPATIEN INC T EMERGENCY 80055 INDIO 4 4 [facility] DEPARTMEN INC T VISIT LOW/MODER SEVERITY EMERGENCY 11237 GILLIAN RUELAS 4 4 [facility] T VISIT MODERATE SEVERITY HOSPITAL [facility] - 3 3 [facility] OUTPATIEN [facility] T OFFICE 04397 CHARLES PERERA OUTPATIEN 3 3 DILMA CASILLAS T VISIT 25 MINUTES OFFICE 49022 [facility] PETSHELDON OUTPATIEN 3 3 PHYSICIAN JAM T VISIT S GROUP 15 MINUTES OFFICE 73187 MIAN ORTIZ OUTPATIEN 3 3 MATT T VISIT CHIROPRAC 15 TIC CENTE MINUTES OFFICE 58946 DEON NEAL OUTPATIEN 3 3 N T VISIT NEUROLOGY 15 MINUTES HOSPITAL [place] - 3 3 N OUTPATIEN [facility] T HOSPITA OFFICE 98744 EAR, NOSE SHASHY OUTPATIEN 3 3 AND HARESH T VISIT THROAT 25 SPECIAL [facility] ENW - 3 3 N OUTPATIEN COMMUNITY T HOSPITA OFFICE 14783 DEON NEAL OUTPATIEN 3 3 N T NEW 45 NEUROLOGY MINUTES OFFICE 34552 EAR, NOSE SHASHY OUTPATIEN 3 3 AND HARESH T VISIT THROAT 25 SPECIAL [facility] ENW - 3 3 N OUTPATIEN COMMUNITY T HOSPITA OFFICE 22915 EAR, NOSE SHASHY OUTPATIEN 3 3 AND HARESH T NEW 45 THROAT MINUTES SPECIAL OFFICE 59606 JACKELYN HAYDEN OUTPATIEN 3 3 JAM JAM T NEW 45 MINUTES OFFICE 29798 CHARLES BARNETTPATIEK 3 3 DILMA CASILLAS T VISIT 15 MINUTES OFFICE 21928 CHARLES SPENCE 3 3 DILMA CASILLAS T VISIT 25 MINUTES HOSPITAL [facility] - 3 3 [facility] T EMERGENCY 87546 INDIO 3 3 [facility] T VISIT LIMITED/M INOR PROB EMERGENCY 75979 GILLIAN SELLERS 3 3 EMERGENCY DEPARTMEN SERVICES T VISIT HIGH/URGE NT SEVERITY EMERGENCY 75441 GILLIAN LOZOYA 3 3 EMERGENCY DEPARTMEN SERVICES T VISIT HIGH/URGE NT SEVERITY OFFICE 39235 CHARLES PERERA OUTPATIEN 3 3 DILMA CASILLAS T VISIT 15 MINUTES EMERGENCY 77522 INDIO 2 2 [facility] T VISIT LOW/MODER SEVERITY EMERGENCY 18194 GILLIAN LOUISE 2 2 EMERGENCY DEPARTMEN SERVICES T VISIT HIGH/URGE NT SEVERITY HOSPITAL [place] - 2 2 [facility] OUTPATIEN [facility] T HOSPITAL INDIO - 2 2 [facility] T HOSPITAL INDIO - 2 2 [facility] OUTPATIEN [facility] T OFFICE 72265 BROCK GUTIÉRREZ OUTPATIEN 2 2 JAM JAM T VISIT 15 MINUTES OFFICE 49696 [facility] GUTIÉRREZ OUTPATIEN 2 2 JAM JAM T VISIT 15 MINUTES EMERGENCY 16058 ANIYAON 2 2 [facility] T VISIT LOW/MODER SEVERITY EMERGENCY 14455 GILLIAN SOKACarlotta SELLERS DEPT 2 2 EMERGENCY VISIT SERVICES HIGH SEVERITY& THREAT [facility] ISELA[facility] - 2 2 [facility] INDIO - 2 2 [facility] T EMERGENCY 86756 INDIO 2 2 [facility] T VISIT MODERATE SEVERITY EMERGENCY 56582 GILLIAN GARY 2 2 EMERGENCY III [facility] T VISIT HIGH/URGE NT SEVERITY HOSPITAL [place] - 2 2 [facility] T OFFICE 24963 BROCK GUTIÉRREZ [facility] 2 2 [facility] [place] T VISIT 15 MINUTES EMERGENCY 44560 INDIO 2 2 [facility] T VISIT LIMITED/M INOR PROB [facility] INDIO - 2 2 [facility] [address] T OFFICE 08609 ANAYELI TREVIZO OUTPATI 2 2 T NEW 30 MINUTES OFFICE 11630 ANAYELI TREVIZO [place] [address] 2 T VISIT 15 MINUTES OFFICE [address] T NEW 20 MINUTES [facility] [address] T OFFICE [address] T VISIT 10 MINUTES OFFICE 25192 [facility] OUTPATI[facility] 2 2 [place] T VISIT ORTHOPAED 15 [facility] MINUT[facility] OFFICE 91207 MAGED MAGED OUTPATIEN 1 1 JANE LARA T VISIT 25 MINUTES HOSPITAL [facility] - 1 1 [facility] T OFFICE 14547 [facility] [place] OUTPATIEN 1 1 [place] T NEW 30 ORTHOPAED MINUTES [facility] [place] [facility] 1 1 [facility] [place] - 1 1 [facility] EMERGENCY 38736 GILLIAN RUELAS 1 1 [facility] DEPARTMEN SERVICES T VISIT HIGH/URGE NT SEVERITY [facility]OSPITAL [place] - 1 1 [facility] 49135 INDIO 1 1 [facility] T VISIT LOW/MODER SEVERITY [facility]OSPITAL [facility] - 1 1 [facility] INDIO - 1 1 [facility] EMERGENCY 33369 GILLIAN LARA DEPT 1 1 EMERGENCY VISIT SERVICES HIGH SEVERITY& THREAT FUN EMERGENCY 21289 INDIO 1 1 [facility] T VISIT LOW/MODER SEVERITY [facility] 06344 GILLIAN GARY 0 0 [facility] T VISIT HIGH/URGE NT SEVERITY [facility]OSPITAL [place] - 0 0 [facility] EMERGENCY 56098 INDIO 0 0 [facility] T VISIT LOW/MODER SEVERITY [facility] 15222 GILLIAN ESPOSITO 0 0 EMERGENCY [facility] DEPARTMEN SERVICES T VISIT HIGH/URGE NT SEVERITY [facility] 43081 [facility] 0 0 [facility] HEALTH MODERATE SEVERITY OFFICE 31859 ESTRELLA MCKENZIE [facility] 0 0 MEDICAL CITLALLI Santos T VISIT SERV [facility] 97034 INDIO 0 0 [facility] DEPARTMEN INC T VISIT MODERATE SEVERITY EMERGENCY 43875 GILLIAN RUELAS, 0 0 EMERGENCY [facility] DEPARTMEN SERVICES T VISIT HIGH/URGE ASSOCIATE NT S SEVERITY [facility] [place] - 0 0 [facility] EMERGENCY [id number] INDIO 0 0 [facility] DEPARTMEN INC T VISIT HIGH/URGE NT SEVERITY HOSPITAL [facility] - 0 0 [facility] 83375 GILLIAN SIMMONS, DEPT 0 0 [facility]ER[facility] VISIT SERVICES HIGH SEVERITY& ASSOCIATE THREAT S [facility] [place] - 0 0 [facility] 9 [facility] T OFFICE 79330 [facility] 9 9 MEDICAL ODELL T T VISIT SERV 15 FOUNDATIO MINUTES OFFICE 95178 [facility] 9 9 MEDICAL ODELL T T VISIT SERV 15 FOUNDATIO MINUTES OFFICE 38416 [facility] 9 9 MEDICAL ODELL T T NEW 30 SERV MINUTES [facility] - 9 9 [facility] [place] 9 [facility] 9 9 [facility] T OFFICE 01587 [facility] 9 9 Y T VISIT [facility] 25 [facility] UNIVERSIT - 9 9 [facility] UNIVERSIT [facility] 9 9 [facility] T OFFICE 56025 [facility] 9 9 Y T VISIT HOSPITAL 15 MINUTES OFFICE 14339 [facility] 9 9 [place] T VISIT 10 MINUTES HOSPITAL [facility] - 9 9 Y [facility] T OFFICE 68667 [facility] 9 9 [place] T VISIT 15 MINUTES HOSPITAL [facility] - 9 9 Y [facility] T OFFICE 96997 [facility] 9 9 Y T VISIT HOSPITAL 15 MINUTES [facility] [place] - 9 9 [facility] T OFFICE 95328 [facility] 9 9 [place] T VISIT 15 MINUTES OFFICE 35264 [facility] 9 9 Y T VISIT HOSPITAL 25 MINUTES HOSPITAL UN[facility] - 9 9 Y [facility] T HOSPITAL UNIVERSIT - 9 9 Y [facility] T OFFICE 21970 [facility] 9 9 [place] T NEW 45 MINUTES OFFICE 36679 [facility] 9 9 Y T VISIT HOSPITAL 40 MINUTES OFFICE 10281 ADVANCED EUNICE, CONSULTAT 9 9 PAIN SOCORRO R ION MEDICIINE NEW/ESTAB PSC PATIENT 60 MIN [facility] T OFFICE 38146 GLEN, GLEN, OUTPATIEN 8 8 DEVONTE DEVONTE T VISIT 10 MINUTES [facility] 8 [facility] T OFFICE 20391 GLEN, GLEN, CONSULTAT 8 8 DEVONTE DEVONTE ION NEW/ESTAB PATIENT 40 MIN [facility]OSPITAL [facility] - 8 8 [facility] OUTPATI[facility] INC T EMERGENCY 19817 [facility] 8 8 [facility] DEPARTMEN INC T VISIT LIMITED/M INOR PROB OFFICE 43504 ROHINILINNROHINILINN, OUTPATIEN 8 8 LESLEY Abdul T NEW 45 MINUTES OFFICE 63926 FAMILY LANETTEBERRY, OUTPATIEN 8 8 CARE MARIELY T T VISIT ASSOCIATE 15 S MINUTES OFFICE 40718 FAMILY LATRICIA, OUTPATIEN 8 8 CARE R ELIZABETH T VISIT ASSOCIATE 15 S MINUTES OFFICE 45180 FAMILY [place] LEBLANC OUTPATIEN 8 8 CARE G T VISIT ASSOCIATE 15 S MINUTES OFFICE 34528 FAMILY FAMILY OUTPATIEN 8 8 CARE CARE T VISIT ASSOCIATE ASSOCIATE 15 S S MINUTES OFFICE 66976 FAMILY FAMILY OUTPATIEN 8 8 CARE CARE T VISIT ASSOCIATE ASSOCIATE 25 S S MINUTES OFFICE 17138 FAMILY FAMILY OUTPATIEN 8 8 CARE CARE T VISIT ASSOCIATE ASSOCIATE 15 S S MINUTES
--- OUTSIDE RECORDS SUMMARY | 2017-07-29 20:19 | External Medical Summary Rpt | CCD ---
Author Author , KELSY Organization KELSY Address Unknown Phone [email or web address] Care Team Providers Care Ground Crew Supervisor Name Role Phone [employer] Unavailable Unavailable INC, [employer] Unavailable Unavailable INC, [employer] [facility] Unavailable Unavailable [place], [facility] [place] MAGED, MAGED Unavailable Unavailable MAGED JANE, MAGED Unavailable Unavailable JANE MAGED JANE, MAGED Unavailable Unavailable JANE DIANA MATT, Unavailable Unavailable Kenya ARNETT, Unavailable Unavailable Kenya ORTIZ ARMS DON, ARMS DON Unavailable Unavailable [facility] Unavailable Unavailable [facility] Unavailable Unavailable [facility] GROUP, [facility] BEINEKE LILLIE, BEINEKE Unavailable Unavailable LILLIE SILVER TER, SILVER TER Unavailable Unavailable ADDISON, ALACIA L, Unavailable Unavailable ADDISON, ALACIA L [facility] Unavailable Unavailable [facility]ATORIES, [facility] Unavailable Unavailable LAB[facility]ATORIES, [facility] Unavailable [facility]available [facility], [facility] Unavailable Unavailable HOSPITAL, [facility] [employer] Unavailable Unavailable GUADALUPE FRA, GUADALUPE FRA Unavailable Unavailable GALICIA CAR, GALICIA Unavailable Unavailable CAR [facility] & Unavailable Unavailable SLEEP CON[facility], [facility] & SLEEP CONSU [facility], [facility] Unavailable Unavailable [facility], Unavailable Unavailable [facility] Unavailable [facility] CHESTNUT, [facility] Unavailable Unavailable [facility] & Unavailable Unavailable DUBILIER, [facility] Unavailable Unavailable [facility] Unavailable Unavailable PHYSICIAN PRA, [facility] PHYSICIAN PRA [facility], Unavailable Unavailable [facility] RENDON T, RENDON T Unavailable Unavailable AMIN, AMIN Unavailable Unavailable AMIN GRAEME, AMIN GRAEME Unavailable Unavailable Kenya LEBLANC, BENJI, Unavailable Unavailable Kenya CYR, KLARISSA Unavailable Unavailable KLARISSA KASSANDRA, Unavailable Unavailable KLARISSA KASSANDRA EUNICE CYR, Unavailable Unavailable KLARISSA, EUNICE [place] [facility] Unavailable Unavailable [place], [facility] MARTI, MARTI Unavailable Unavailable MARTI GRE, MARIT Unavailable Unavailable [facility] Unavailable Unavailable ASSOCIAT, [facility] DAUKAS ROSALES, DAUKAS Unavailable Unavailable [...] MIKAL ELVIE RUELAS, Unavailable Unavailable ELVIE RUELAS [facility] Unavailable Unavailable HOSPITA, [facility] HOSPITA [facility] Unavailable Unavailable HOSPITA, [facility], Unavailable Unavailable [facility] CHARLES PERERA MD, Unavailable Unavailable ODELL PEREZ MD, Unavailable Unavailable ODELL BANEGAS GRAY ROB Unavailable Unavailable GREGONIParul GREGONIParul Unavailable Unavailable NIKKI RHO, NIKKI Unavailable Unavailable RHO NIKKI, RUBÉN G, Unavailable Unavailable NIKKI, RUBÉN G CEVALLOS, CEVALLOS Unavailable Unavailable HARPEL SONJA, HARPEL Unavailable Unavailable SONJA GARRETT, GARRETT Unavailable Unavailable LESLEY HERNÁNDEZ, Unavailable Unavailable LESLEY HERNÁNDEZ [facility] Unavailable Unavailable INC, [facility] Unavailable Unavailable HOSPITAL, [facility] Unavailable Unavailable HOSPITAL P, [facility]PITAL P PATTERSON MANNY, PATTERSON MANNY Unavailable Unavailable [facility], Unavailable Unavailable [facility] STACI III, SMALL Unavailable Unavailable III FRACISCO, Unavailable Unavailable FRACISCO LEE, ROSA SAN CARLOS JR, SAN CARLOS JR Unavailable Unavailable RYNE III JAYESH, Unavailable Unavailable RYNE III ADRIANA RONDON, Unavailable Unavailable ADRIANA MICHELE [facility] Unavailable Unavailable GROUP PS, [facility] Unavailable Unavailable [facility], [facility], Unavailable Unavailable [facility] KOSTELIC, LAURIE K, Unavailable Unavailable KOSTELIC, LAURIE K [facility] Unavailable Un[facility] Unavailable Unavailable HOLDINGS, [facility], Unavailable Unavailable [facility] JAIR JR, JAIR JR Unavailable Unavailable JAIR JR DWI, JAIR Unavailable Unavailable JR DWI JAIR, YSABEL E, Unavailable Unavailable JAIR, YSABEL E [facility] RESIDENCY DIRECTOR, Unavailable Unavailable [facility], SAPELLO RESIDENCY DIRECTOR, [facility] LOCKSTADT, LOCKSTADT Unavailable Unavailable DUONG ELIU, DUONG Unavailable Unavailable ELIU CITLALLI MCKENZIE, JONAH, Unavailable Unavailable THOMAS ROLAND Unavailable Unavailable [facility] GRE, Unavailable Unavailable GILLIAN GRE [facility], Unavailable Unavailable [facility] Unavailable Unavailable SERVICES, [facility] RIA WINSLOW, RIA Unavailable Unavailable [place] HAYDEN JAM, Unavailable Unavailable HAYDENALICIA HAMILTON, Unavailable Unavailable HAYDENALICIA LOPEZ, RICHARD Unavailable Unavailable JOHN MULBERRY MARIELY T, Unavailable Unavailable MULBERRY MARIELY T [facility] Unavailable Unavailable [facility], [facility] Unavailable Unavailable [facility] Maryellen ROME, Unavailable Unavailable Maryellen ROME [...] RENUSCH Unavailable Unavailable FUENTES, FUENTES Unavailable Unavailable MOSUTAPHA DEN, MOUSTAPHA Unavailable Unavailable DEN SCALF ELIU, SCALF ELIU Unavailable Unavailable SCIFRES ANG, SCIFRES Unavailable Unavailable ANG SHASHY HARESH, SHASHY Unavailable Unavailable HARESH HOROWITZ CIARRA, HOROWITZ CIARRA Unavailable Unavailable SOKAN BAB, SOKAN BAB Unavailable [facility]available [facility], Unavailable Unavailable [facility] LILLIE [facility] Unavailable Unavailable [facility], [facility] Unavailable Unavailable EMERGENCY SERVI, [facility], Unavailable Unavailable [facility] ARCHER KAHLIL, Unavailable Unavailable ARCHER KAHLIL PARMJIT ELIU, PARMJIT Unavailable Unavailable [facility], Unavailable Unavailable [facility] WAESPE, WAESPE Unavailable Unavailable [facility] Unavailable Unavailable [address]591, [facility] Unavailable Unavailable [facility], [facility] WEHRMAN III CHERYL, Unavailable Unavailable WEHRMAN III CHERYL LAZARUS LOUISE, ALZARUS ASPEN Unavailable Unavailable LUIS SOPHIE, LUIS Unavailable [...] 06-27-2017 [facility] LAR & SLEEP UNSPECIFIED CONSU [id number] ENCOUNTER 06-27-2017 [facility] FOR LAR & SLEEP PREPROCEDUR CONSU AL CARIOVASCUL AR EXAM J301 ALLERGIC 06-22-2017 [facility] RHINITIS [facility] DUE TO [place] POLLEN J3081 ALLERG 06-22-2017 [facility] RH[facility]IS [facility] D/T ANIMAL [place] CAT DOG HAIR & DANDER J3089 OTHER 06-22-2017 [facility]GIC [facility] RHINITIS [place] E785 HYPERLIPIDE 06-17-2017 [facility] UNSPECIFIED HOSPITAL N390 URINARY 06-17-2017 [facility] INFECTION HOSPITAL SITE NOT SPECIFIED R5383 OTHER 06-17-2017 [facility] E47240 ENCOUNTER 06-17-2017 [facility] OTHER [facility] PREPROCEDUR HOSPITAL AL EXAMINATION R0602 SHORTNESS 06-03-2017 [facility] [place] OF BREATH RADIOLOGY R072 PRECORDIAL 06-03-2017 [facility] [place] PAIN RADIOLOGY M1711 UNILATERAL 06-02-2017 [facility]IMARY [facility] OSTEOARTHRI S PSC TIS RIGHT KNEE E875 HYPERKALEMI 05-31-2017 [facility] A LAR & SLEEP CONSU A048 OTHER 05-06-2017 [facility] SPECIFIED [facility]ITY BACTERIAL HOSPITAL INTESTINAL INFECTIONS R05 COUGH 05-03-2017 [facility] Q22382 MIGRAINE 04-15-2017 NEW UNS NOT [place] INTRACT [...] & CAUSE OF DZ DUBILIER CLASSIFIED ELSW [id number] UNSPECIFIED 02-02-2017 [facility] UNCOMPLICAT HOSPITAL ED K317 POLYP OF 02-02-2017 [facility] ST[facility] CLA[facility] & DUODENUM DUBILIER K3189 OTHER 02-02-2017 [facility] DISEASES OF CLAIRE & STOMACH DUBILIER AND DUODENUM R079 CHEST PAIN 02-02-2017 [facility] UNSPECIFIED [facility] HOSPITAL R1310 DYSPHAGIA 02-02-2017 [facility] HOSPITAL W74362 OTHER LONG 02-02-[address] [facility] [address] COMM[facility]ITY CURRENT HOSPITAL DRUG THERAPY G479 SLEEP 01-25-2017 [facility] DISORDER [facility] UNSPECIFIED HOSPITAL R0683 SNORING 01-25-2017 [facility] J209 ACUTE 01-09-2017 [facility] BRONCHITIS N EMERGENCY UNSPECIFIED PHYS R509 FEVER 01-09-2017 [facility] [place] UNSPECIFIED RADIOLOGY C73128 PERSONAL 01-09-2017 [facility] CALCULI Z886 ALLERGY 01-09-2017 [facility] STATUS TO [facility] ANALGESIC HOSPITAL AGENT STATUS R1013 EPIGASTRIC 12-31-2016 [facility] DIG[facility] CENTER I44776 UNSPECIFIED 12-28-2016 [facility]MA LAR & SLEEP WITH ACUTE CONSU EXACERBATIO N R0600 DYSPNEA 12-13-2016 [facility] UNSPECIFIED [facility] [place] R9439 ABNORMAL 12-13-2016 [facility] RESULT OT HEALTH CARDIOVASCU MEDICAL LR FUNCTION [...] AND OF VULVA MAGED, AND VAGINA PSC I18001 CHRONIC 11-02-2016 [facility] AND MIGRAINE MAGED, W/O AURA PSC INTRACT W/O STAT MIGR J0190 ACUTE 11-02-2016 [facility] AND SINUSITIS MAGED, UNSPECIFIED PSC Z6832 BODY MASS 11-02-2016 [facility] AND INDEX BMI MAGED, 32.0-32.9 PSC ADULT X24520 PRESENCE OF 10-05-2016 [facility] 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 T79191 PRESENCE OF 10-05-2016 [facility] LEFT ORTHOPAEDIC ARTIFICIAL S PSC KNEE JOINT J680 BRONCHITIS 09-28-2016 [facility] & PNEUMONIT PHYSICIANS, D/T CHEM [facility] GASE FUME VAPOR U6267QQ TOXIC 09-28-2016 [facility] EFFECT [facility] P ACCIDENTAL INIT ENC V23759 UNS PLACE 09-28-2016 [facility] P PLACE OF OCCUR EXT G4489 OTHER 09-08-2016 [facility] HEADACHE PART[facility] OF SYNDROME [place] J0180 OTHER ACUTE 09-08-2016 [facility] SINUSITIS [facility] [place] J4530 MILD 09-08-2016 [facility] PERSISTENT PARTNERS OF ASTHMA [place] UNCOMPLICAT ED X27623 SPONDYLOSIS 08-05-2016 [facility] W/O MEDICAL MYELOPATH/R IMAGING ASS ADICULPATHY LS RGN M5126 OTH 08-05-2016 [facility] INTERVERTEB MEDICAL RAL DISC IMAGING ASS DISPLACEMEN T LUMBAR RGN M1712 UNILATERAL 07-22-2016 [facility] OSTEOARTHRI S PSC TIS LEFT KNEE H1013 ACUTE 07-16-2016 [facility] [facility] TIS BILATERAL Z1231 ENCOUNTER 05-12-2016 [facility] SCREENING MEDICAL MAMMO MALIG IMAGING ASS NEOPLASM BREAST N951 MENOPAUSAL 04-29-2016 [facility] CLIMACTERIC GROUP STATES O81918 ENCOUNTER 04-29-2016 [facility] SACK CLEANER EXAM PHYSICIANS GENERAL RTN GROUP W/O ABNORMAL FIND Z1212 ENCOUNTER 04-29-2016 [facility] SCREENING PHYSICIANS MALIGNANT GROUP NEOPLASM RECTUM Z7253 HIGH RISK 04-29-2016 [facility] BISEXUAL PHYSICIANS BEHAVIOR GROUP G8918 OTHER ACUTE 04-24-2016 [facility] PHYSICIANS, POSTPROCEDU PLLC RAL PAIN M01482 PAIN IN 04-24-2016 [facility] LEFT KNEE MEM HOS[facility] INC M179 OSTEOARTHRI 04-14-2016 [place] T[facility] OF KNEE ANESTHESIA ASSOCIAT UNSPECIFIED Z0001 ENCOUNTER 04-06-2016 [facility] MEDICAL INCORPORAT EXAM W/ABNORMAL FIND M1611 UNILATERAL 03-30-2016 [facility] OSTE[facility]RI [facility] TIS RIGHT HIP H6000 ABSCESS OF 02-25-2016 [facility] EXTERNAL PHYSICIANS, EAR PLLC UNSPECIFIED EAR H6003 ABSCESS OF 02-25-2016 [facility] EXTERNAL MEM [facility]OS[facility] EAR INC BILATERAL [id number] OTH TEAR 12-17-2015 [facility] MED ORTHOPAEDIC MENISCUS S PLC CURR INJ LT KNEE SBSQT ENC J029 ACUTE 12-02-2015 [facility] UNSPEC[facility] J4520 MILD 11-28-2015 [facility] INTERMITTEN PARTNERS OF T ASTHMA [place] UNCOMPLICAT ED Z8739 PERSONAL HX 09-22-2015 [facility] MEM HOSP MUSCULOSKEL INC SYS&CONNECT V TISS G82111 CHONDROMALA 08-19-2015 [facility] ANDREA LEFT COMMUNTIY KNEE HOSPITA H13136R OTH TEAR 08-19-2015 [facility] MED ANESTHESIA MENISCUS GROUP PS CURR INJ LT KNEE INIT ENC K21562 MIGRAINE 07-04-2015 [facility] W/O AURA NEUROLOGY INTRACT W/O STAT MIGRAINOSUS 2070 ALLERGIC 07-02-2015 [facility] RHINITIS PARTNERS OF DUE TO [place] POLLEN 4772 ALLERGIC 07-02-2015 [facility] RHINITIS PART[facility]ERS OF [facility] TO [place] ANIMAL HAIR AND DANDER 4778 ALLERGIC 07-02-2015 [facility] RHINITIS PARTNERS OF DUE TO [place] OTHER ALLERGEN 28032 ASTHMA, 06-13-2015 [facility] UNSPECIFIED PARTNERS OF , [place] UNSPECIFIED STATUS 7840 HEADACHE 06-13-2015 [facility] [place] 4720 CHRONIC 05-23-2015 [place] [address] OSTEOARTHRO 05-21-2015 [facility] [place] SIS UNSPEC ORTHOPAEDIC WHETHER S PLC GEN/LOC LOWER LEG 51000 CHRONIC 04-03-2015 [facility] MIGRAINE NEUROLOGY W/O AURA W/O INTRACTABLE W/O SM V7612 OTHER 03-31-2015 [facility] SCREENING MEDICAL MAMMOGRAM IMAGING ASS 6272 SYMPTOMATIC [...] AND ABSCESS MEM HOSP OF FACE INC 03364 NEW DAILY 03-06-2015 [facility] PERSISTENT COMMUNTIY HEADACHE HOSPITA 7920 NONSPECIFIC 03-06-2015 [facility] ABNORMAL CLAIRE & FINDING IN [facility] [place] [address]42 PAIN IN 03-04-2015 [facility] JOINT, COMMUNTIY LOWER LEG HOSPITA V571 OTHER 02-07-2015 [facility] PHYSICAL MEM HOSP THERAPY INC 56567 MIGRAINE 02-04-2015 [facility] [place] UNSP W/O RADIOLOGY INTRACT W/O STATUS MIGRAINOSUS 7231 CERVICALGIA 01-29-2015 [facility] 17163 PRIMARY 10-01-2014 [facility]ED LOCALIZED TECHNOLOGIE OSTEOARTHRO S INC SIS LOWER LEG 7295 PAIN IN 10-01-2014 [facility] SOFT TECHNOLOGIE TISSUES OF S INC LIMB 48156 PAIN IN 09-10-2014 [facility] [place] JOINT RADIOLOGY [place] REGION AND THIGH 84347 DISORDER OF 09-10-2014 [facility] BONE AND MSO, Eved CARTILAGE UNSPECIFIED 46062 GENU VARUM 09-10-2014 Blend[facility], Eved V5869 LONG-TERM 09-10-2014 [facility] (CURRENT) COMMUNITY USE OF HOSPITA OTHER MEDICATIONS 55775 UNSPECIFIED 08-17-2014 [facility] SUBJECTIVE GRE VISUAL DISTURBANCE 14814 OTHER 08-17-2014 [facility] VISUAL GRE DISTORTIONS AND ENTOPTIC PHENOMENA 16403 UNSPECIFIED 08-17-2014 [place] [address] SCLERAL 08-17-2014 [facility] ECTASIA GRE 33556 CHONDROMALA 08-01-2014 [facility] V0481 NEED 07-16-2014 [facility] PROPHYLACTI PHARMACY C #591 VACCINATION &INOCULATIO N FLU 18245 RESTLESS 05-16-2014 MAGED JANE LEGS SYNDROME 35077 INSOMNIA 05-16-2014 MAGED JANE UNSPECIFIED 7172 DERANGEMENT 04-08-2014 [facility] OF MEM HOSP POSTERIOR INC HORN OF MEDIAL MENISCUS 26468 DERANGEMENT 04-08-2014 [facility] OF MEM HOSP ANTERIOR INC HORN OF LATERAL MENISCUS 76868 PLICA 04-08-2014 [facility] SYNDR[facility] 8360 TEAR MEDIAL 04-08-2014 [facility] CARTILAGE PHYSICIANS OR MENISCUS GROUP KNEE CURRENT 8361 TEAR 04-08-2014 [facility] LATERAL MEM HOSP CARTILAGE INC OR MENISCUS KNEE CURRENT 2724 OTHER AND 04-03-[address] [facility] P HYPERLIPIDE STEPH 6829 CELLULITIS 03-28-2014 MAGED JANE AND ABSCESS OF UNSPECIFIED SITE 36480 ABDOMINAL 03-28-2014 MAGED JANE PAIN OTHER SPECIFIED SITE 6869 UNSPEC 03-05-2014 [facility] LOCAL COMMUNITY INFECTION HOSPITA SKIN&SUBCUT ANEOUS TISSUE 7048 OTHER 03-05-2014 [facility] SPECIFIED COMMUNITY DISEASE OF HOSPITA HAIR&HAIR FOLLICLES 93885 TOXIC 03-05-2014 [facility] EFFECT OF COMMUNITY OTHER HOSPITA SUBSTANCES 9953 ALLERGY 03-05-2014 [facility] UNSPECIFIED N EMERGENCY NOT SERVI ELSEWHERE CLASSIFIED 93934 DEGEN 03-04-2014 [facility] LUMBAR/LUMB MEDICAL OSACRAL IMAGING ASS INTERVERTEB RAL DISC 7242 LUMBAGO 03-04-2014 [facility] 8472 LUMBAR 03-04-2014 [facility] SPRAIN AND N EMERGENCY STRAIN PHYS 82620 CONTUSION 03-04-2014 [facility] OF KNEE N EMERGENCY PHYS E8888 OTHER FALL 03-04-2014 [facility] N EMERGENCY PHYS 55860 SYNOVIAL 02-22-2014 [facility] CYST OF PHYSICIANS POPLITEAL GROUP SPACE 86642 OTHER 01-25-2014 [facility] MALAISE AND RESIDENCY DIRECTOR, PSC FATIGUE 44925 LOSS OF 01-25-2014 [place] WEIGHT RESIDENCY DIRECTOR, PSC 6279 UNSPECIFIED 12-27-2013 [facility] MENOPAUSAL& INC POSTMENOPAU GRIS DISORDER 10117 EFFUSION OF 12-24-2013 [facility] LOWER LEG MEDICAL JOINT IMAGING ASS V148 PERSONAL 10-18-2013 [facility] HISTORY [facility] ALLERGY OTH INC SPEC MEDICINAL AGTS 99524 MASTODYNIA 06-19-2013 [facility] HOS[facility] INC 6101 DIFFUSE 06-14-2013 CHARLES PERERA MD MASTOPATHY 84131 OTHER SIGN 06-14-2013 CHARLES PERERA MD IN BREAST 7243 SCIATICA 06-06-2013 [place] [facility] 7393 NONALLOPATH 06-06-2013 [place] IC LESION CHIROPRACTI OF LUMBAR C CENTE REGION NEC 7394 NONALLOPATH 06-06-2013 [place] IC LESION CHIROPRACTI OF SACRAL C CENTE REGION NEC 7395 NONALLOPATH 06-06-2013 [place] IC LESION CHIROPRACTI OF PELVIC C CENTE REGION NEC 54003 CHRONIC 05-18-2013 [facility] MIGRAINE NEUROLOGY W/O W/INTRACTAB LE W/O SM 470 DEVIATED 04-18-2013 [facility] NASAL COMMUNITY SEPTUM HOSPITA 4739 UNSPECIFIED 04-18-2013 [facility] SINUSITIS ANESTHESIA GROUP PS 4780 HYPERTROPHY 04-18-2013 [facility] OF NASAL COMMUNITY TURBINATES HOSPITA 89792 OTHER 04-18-2013 [facility] DISEASES OF COMMUNITY NASAL HOSPITA CAVITY AND SINUSES V7283 OTHER 04-12-2013 [facility] SPECIFIED COMMUNITY PRE-OPERATI HOSPITA VE EXAMINATION 7391 NONALLOPATH 03-02-2013 [place] IC LESION CHIROPRACTI OF CERVICAL C CENTE REGION NEC 66402 CHRONIC 2013 [facility] TENSION JAM TYPE HEADACHE 71412 SENILE 2013 [facility] RETICULAR JAM DEGENERATIO N PERIPHERAL RETINA 82992 DECREASED 12-08-2012 [place] [address] CONTUSION 11-11-2012 [facility] BACK EMERGENCY SERVICES 7244 THORACIC/JANINE 09-01-2012 [facility] MBOSACRAL EMERGENCY NEURITIS/RA SERVICES DICULITIS UNSPEC 7202 SACROILIITI 08-07-2012 [place] S NOT CHIROPRACTI ELSEWHERE C CENTE CLASSIFIED 57117 DISRUPTION 08-03-2012 [facility] OF EXTERNAL REFERNCE OPERATION LABORATORIE SURGICAL S WOUND 7933 NONSPECIFIC 07-19-2012 [place] ABN FINDNG CHIROPRACTI RAD&OTH C CENTE EXAM BILARY TRCT 3558 UNSPECIFIED 07-04-2012 [facility] MONONEURITI S OF LOWER LIMB 8479 SPRAIN AND 07-04-2012 [facility] ALFONSO STRAIN OF UNSPECIFIED SITE OF BACK 5589 OTH&UNSPEC 05-16-2012 [place] NONINFECTIO EMERGENCY US SERVICES GASTROENTER ITIS&COLITI S 68522 ABDOMINAL 05-16-2012 [facility] [place] PAIN, RADIOLOGY UNSPECIFIED SITE V145 PERSONAL 05-16-2012 [facility] HISTORY OF COMMUNITY ALLERGY TO HOSPITAL NARCOTIC AGENT 7094 FOREIGN 05-01-2012 [place] BODY EMERGENCY GRANULOMA SERVICES SKIN&SUBCUT ANEOUS TISSUE 7296 RESIDUAL 05-01-2012 [facility] FOREIGN MEDICAL BODY IN IMAGING ASS SOFT TISSUE 8930 OPEN WOUND 05-01-2012 [place] TOE WITHOUT EMERGENCY MENTION SERVICES COMPLICATIO N E9179 OTHER 05-01-2012 [place] STRIKING EMERGENCY AGAINST SERVICES W/WO SUBSEQUENT FALL V065 NEED 05-01-2012 [facility] PROPHYLACTI MEM HOSP C INC VACCINATION W/TETANUS-D [facility] 4619 ACUTE 01-05-2012 [facility] SINUSITIS, UNSPECIFIED 4779 ALLERGIC 01-05-2012 [facility] [place] RHINITIS CAUSE UNSPECIFIED 77508 NON-HEALING 11-19-2011 [facility] WOUND NEC 28646 DISRUPTION 11-16-2011 [facility] UNSPECIFIED 52389 PAIN IN 10-11-2011 [facility] [place] JOINT, ORTHOPAEDIC ANKLE AND S PLC FOOT 6918 OTHER 09-17-2011 MAG[facility] J[facility] ATOPIC DERMATITIS AND RELATED CONDITIONS 7820 DISTURBANCE 09-10-2011 [place] OF SKIN MEDICAL SENSATION IMAGING ASS E8889 UNSPECIFIED 06-22-2011 [facility] [place] FALL RADIOLOGY 8792 OPEN WOUND 04-20-2011 [facility] ABD WALL COMMUNITY ANT WITHOUT HOSPITAL MENTION COMP 70651 OTHER 04-20-2011 [facility] [place] POSTOPERATI RADIOLOGY VE INFECTION NEC 50877 UNSPECIFIED 03-10-2011 [place] URETHRITIS EMERGENCY SERVICES 3569 UNSPEC 02-02-2011 [facility] HEREDIT&IDI [facility] OPATHIC HOSP PERIPHERAL NEUROPATHY 63005 CALCANEAL 01-14-2011 [facility] [place] SPUR RADIOLOGY 13967 HEMATURIA 01-12-2011 [place] UNSPECIFIED EMERGENCY SERVICES 7880 RENAL COLIC 01-12-2011 [facility] [facility] SERVICES 9176 FOOT&TOE 08-31-2010 [facility] SUP FB W/O COMMUNITY SOL OPN HOSPITA WND&W/O MENTION INF 04909 ERYTHEMA 06-03-2010 [facility] DUE TO BURN EMERGENCY OF BREAST SERVICES 19127 ERYTHMA DUE 06-03-2010 [facility] BURN [facility] MEM HOS[facility] W[place] EXCL[place] INC BREAST&[place] [address] ERYTHEMA 06-03-2010 [facility] DUE TO BURN EMERGENCY OF SERVICES ABDOMINAL WALL 52758 ERYTHEMA 06-03-2010 [facility] DUE TO BURN EMERGENCY SERVICES UNSPECIFIED SITE LOWER LIMB 07606 ERYTHEMA 06-03-2010 [facility] DUE TO BURN EMERGENCY OF KNEE SERVICES 60510 ERYTHEMA 06-03-2010 [facility] DUE TO BURN MEM HOSP OF THIGH INC 515 POSTINFLAMM 05-04-2010 [facility] [place] ATORY RADIOLOGY PULMONARY FIBROSIS 7962 ELEVATED BP 05-03-2010 [facility] WITHOUT DX HOSPITA HYPERTENSIO N 8921 OPEN WOUND 05-03-2010 [facility] OF FOOT EMERGENCY EXCEPT TOE SERVICES ALONE COMPLICATED E915 FOREIGN 05-03-2010 [facility] BODY EMERGENCY ACCIDENTALL SERVICES Y ENTERING OTHER ORIFICE 7862 COUGH 01-28-2010 [facility] [place] [facility] 28248 REFLUX 12-09-2009 [facility] ESOPHAGITIS ROSA WALLER 76762 ATROPHIC 12-09-2009 PATHOLOGY & GASTRITIS CYTOLOGY WITHOUT LAB MENTION OF HEMORRHAGE 07349 UNS 12-09-2009 [facility] GASTRIT[facility]&G ANESTHESIA ASTRODUODIT GROUP PSC IS W/O MENTION HEMORR 5533 DIAPHRAGMAT 12-09-2009 [facility] OBSTRUCTION /GANGREN 63650 CHEST PAIN 12-09-2009 [facility] UNSPECIFIED SRIDHAR ROSA 54498 OTHER CHEST 12-09-2009 [facility] 43922 NAUSEA 12-09-2009 [facility] 99586 ABDOMINAL 12-09-2009 [facility], NKLIN, EPIGASTRIC ROSA 41204 ESOPHAGEAL 11-28-2009 [facility] PROF SERV 98354 ABDOMINAL 11-28-2009 [facility], [facility] 19429 UNSPECIFIED 10-06-2009 [facility] ARTHROPATHY [facility] [place] 61750 OSTEOARTHRO 06-13-2009 [facility] [place] UNSPEC RADIOLOGY WHETHER GEN/LOC UNSPEC SITE 92137 DIARRHEA 05-09-2009 [facility] 8793 OPEN WOUND 05-09-2009 [facility] WALL ANTERIOR COMPLICATED 9597 INJURY 04-22-2009 [facility] [place] OTHER&UNSPE RADIOLOGY CIFIED KNEE LEG ANKLE&FOOT 7078 CHRONIC 04-03-2009 [facility] OTHER SPECIFIED SITE 6822 CELLULITIS 04-02-2009 [facility], AND ABSCESS [place] L OF TRUNK 59401 OTHER 03-01-2009 [facility] CARDIAC [facility] DYSRHYTHMIA S 7851 PALPITATION 03-01-2009 [facility] 5718 OTHER 02-26-2009 [facility] LIVER DISE[facility] 8795 OPEN WOUND 02-26-2009 [facility], OF [place] [facility] ABDOMINAL WALL LATERAL COMPLICATED V762 SCREENING 02-05-2009 PATHOLOGY & FOR CYTOLOGY [facility] LAB NEOPLASM OF THE CERVIX 8794 OPEN WOUND 12-25-2008 [facility] OF ABD WALL [place] INC LATERAL WITHOUT MENTION COMP 42084 CHRONIC 11-20-2008 [facility] DUE TO PAIN TRAUMA MEDICIINE PSC 7246 DISORDERS 11-20-2008 [facility] OF SACRUM PAIN MEDICIINE PSC 7265 ENTHESOPATH 11-20-2008 [facility] Y OF HIP PAIN REGION MEDICIINE PSC 08282 PAIN IN 10-30-2008 [facility] [place] JOINT, RADIOLOGY SHOULDER REGION 3550 LESION OF 09-13-2008 [facility] PSC 69884 DISPLCMT 08-20-2008 [facility] [place] LUMBAR RADIOLOGY 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 7213 LUMBOSACRAL 05-03-2008 LESLEY 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 6927 [facility] 03-20-2008 [facility] INC DUE SOLAR RADIATION 46774 OTHER 03-15-2008 HARRIES, AMYLOIDOSIS LESLEY Abdul 3384 CHRONIC 03-15-2008 HARRIES, PAIN LESLEY Abdul SYNDROME 7292 UNSPECIFIED 02-12-2008 [facility] NEURITIS AND RADICULITIS 7226 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-2007 [facility] INTERVERTEB RAL DISC SITE UNSPEC 63009 SPONDYLOSIS 11-21-2007 [facility] SITE [...] DOS Code Location Performer Comment PROF SVBURKE 22886 ALLERGY ZIEGLER ALLG 7 PARTNERS IMMNTX X OF [place] W/PRV CO ALLGIC XTRCS NJXS COMPREHEN 65329 [facility] JUDY SIVE 7 [facility] PANEL COLLECTIO 53514 [facility] N VENOUS 7 [facility] VENIPUNCT URE THROMBOPL 63462 [facility] ASTIN 7 [facility] PARTIAL PLASMA/WH OLE BLOOD CUL 98727 [facility] PRSMPTV 7 [facility] ORGANISM SCRN W/COLONY ESTIMJ PROTHROMB 35115 [facility] IN TIME [address] [place] [address] [place] [address] [facility] THYROID [address] [place] [address] NG HORMONE TSH LIPID 31174 [facility] PANEL [address] [place] [address] ECG 37547 [facility] ROUTINE [address] [place] [address] HOSPITAL W/LEAST 12 LDS TRCG ONLY W/O I&R URNLS DIP [address] [facility] HOSPITAL LET REAGENT AUTO MICROSCOP Y HEMOGLOBI 22794 [facility] N [address] [place] [address] HOSPITAL STEFANO A1C BLOOD 00032 [facility] COUNT [address] [place] [address] HOSPITAL AUTOMATED [facility] 86446 ALLERGY ZIEGLER ALLG 7 PARTNERS IMMNTX X OF [place] W/PRV CO ALLGIC XTRCS NJXS CT THORAX 68499 [facility] [place] GAR[place]TT 7 RADIOLOGY W/CONTRAS T MATERIAL RADIOLOGI 42482 [facility] MARTI C 7 EXAMINATI ORTHOPAED ON KNEE 3 ICS PSC VIEWS COLLECTIO 90667 [facility] VENOUS 7 [facility] VENIPUNCT URE BASIC 23868 [facility] METABOLIC [address] [place] [address] [place] [address] JUDY KIM HPYLORI 7 [facility] [place] [address] JUDY KIM DIFFUSING [address] [place] [address] HOSPITAL PLETHYSMO 01712 [facility] GRAPHY [address] [place] [address] HOSPITAL VOLUMES W/WO AIRWAY RESIST BRNCDILAT 54284 JUDY KIM RSPSE [address] [place] [address] PRE&POST- BRNCDILAT ADMN SPMTRY 66426 YAMIL TAYLOR W/VC 7 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 Y CLARA PRA W/WO MXML VOL VNTJ COLLECTIO 61646 YAMIL Laguerre VENOUS 7 [facility] MEDICAL VENIPUNCT [facility] URE BLOOD 80340 YAMIL LOBO COUNT 7 [facility] MEDICAL AUTO&AUTO CENTE CENTE DIFRNTL WBC [facility] 42372 ALLERGY ZIEGLER ALLG 7 PARTNERS IMMNTX X OF [place] W/PRV CO ALLGIC XTRCS NJXS ANTIBODY 78167 YAMIL LOBO BLASTOMYC 7 [facility] ANTIBODY 10411 YAMIL LOBO ASPERGILL 7 [facility] ANTIBODY 26692 YAMIL LOBO HISTOPLAS 7 [facility] CENTE CENTE PREPJ& 06190 ALLERGY ZIEGLER ALLERGEN 7 PARTNERS IMMUNOTHE OF [place] RAPY CO 1/BLOOD BANK COORDINATOR ANTIGEN PROF SVCS 63830 ALLERGY ZIEGLER ALLG 7 PARTNERS IMMNTX X OF [place] W/[place] [address] [facility] SURG [address] [place] [address] GROSS&MIKAL ROSCOPIC EXAM IMHISTOCH 37155 [facility] KIM EM/CYTCHM [address] [place] [address] ANTIBODY STAIN PROCEDURE PRESSURIZ 32850 JUDY KIM ED/NONPRE [address] [place] [address] INHALATIO N TREATMENT EGD 56150 [facility] TRANSORAL [address] [place] [address] SINGLE/MU LTIPLE POLYSOM 99722 GRAEME AMIN AMIN 6/>YRS 7 MD SLEEP 4/> CONSULTIN ADDL G SRV [place] ATTND POLYSOM 08698 [facility] 6/>YRS 7 [facility] SLEEP 4/> HOSPITAL HOSPITAL ADDL [place] ATTND INJECTION J1030 [facility] KIDD 7 METHYLPRE ORTHOPAED DNISOLONE ICS PSC ACETATE 40 MG ARTHROCEN 40911 [facility] KIDD TESIS 7 ASPIR&/IN ORTHOPAED J MAJOR ICS PSC JT/BURSA W/O US RADIOLOGI 37983 [facility] KIDD C 7 EXAMINATI ORTHOPAED ON KNEE 3 ICS PSC VIEWS PROF SVCS 88295 ALLERGY ZIEGLER ALLG 7 PARTNERS IMMNTX X OF [place] W/PRV CO ALLGIC XTRCS NJXS RADIOLOGI 73421 [facility] EXAM [address] VIEWS FRONTAL&L ATERAL IAADIADOO 23635 [facility] 7 [facility] PRESSURIZ 88603 [facility] ED/NONPRE 7 [facility] INHALATIO N TREATMENT BASIC 53530 [facility] METABOLIC 7 [facility] PANEL INC INC CALCIUM TOTAL COLLECTIO 14325 [facility] N VENOUS 7 [facility] BLOOD INC INC VENIPUNCT URE COLLECTIO 87772 [facility]AN ZOROASTRIAN N VENOUS 7 [facility] BLOOD [facility] VENIPUNCT URE LOCM Q9967 [facility]OASTRIAN ZOROASTRIAN [phone] 7 [facility] MG/ML [facility] IODINE CONCENTRA TION PER ML INJECTION J3010 [facility]RIAN ZOROASTRIAN FENTANYL 7 [facility] CITRATE [facility] 0.1 MG INTRDUCR/ C1894 [facility]AN ZOROASTRIAN SHEATH 7 [facility] NOT GUID [facility] INTRACARD EP NON-LASR HEMOGLOBI 38273 [facility]RIAN ZOROASTRIAN N 7 [facility] GLYCOSYLA [facility] STEFANO A1C INJECTION J2250 [facility] ZOROASTRIAN 7 [facility] MIDAZOLAM [facility] HCL PER 1 MG CATH PLMT 10899 ZOROAST[facility] THOMAS Trimble HRT & 7 [facility] MEDICAL W/NJX & GROUP ANGIO IMG S&I LIPID 85504 [facility] PANEL 7 [facility] GUIDE C1769 [facility] ZOROASTRIAN WIRE [address] [facility] INJECTION J1644 [facility] HEPARIN 7 [facility] SODIUM [facility] PER 1000 UNITS COMPREHEN 05407 ZOROASTRIAN ZOROASTRIAN SIVE 7 [facility] METABOLIC [facility] PANEL FIBRIN 33949 [facility] DGRADJ 7 [facility] D-DIMER QUANTITAT JAG CREATINE 15255 [facility] KINASE MB 7 [facility] HOSPITAL ONLY BASIC 32836 [facility] METABOLIC [address] [place] [address] [place] [address] [facility] TROPONIN [address] [place] [address] HOSPITAL JAG BLOOD 83493 [facility] COUNT [address] [place] [address] HOSPITAL AUTO&AUTO DIFRNTL WBC RADIOLOGI 28180 [place] [place] GAR[place] C 7 RADIOLOGY EXAMINATI ON CHEST SINGLE VIEW FRONTAL ECG 27249 [facility] ROUTINE [address] [place] [address] HOSPITAL W/LEAST 12 LDS TRCG ONLY W/O I&R INJECTION J1040 [facility] VAN 7 METHYLPRE ORTHOPAED DNISOLONE ICS PSC ACETATE 80 MG NJX 02258 [facility] VAN DX/THER 7 SBST ORTHOPAED INTRLMNR ICS PSC LMBR/SAC W/IMG GDN LOCM Q9965 [facility] VAN 100-199 7 MG/ML ORTHOPAED IODINE ICS PSC CONCENTRA TION PER ML PROF SVCS 26757 ALLERGY ZIEGLER ALLG 7 PARTNERS IMMNTX X OF [place] W/PRV CO ALLGIC XTRCS NJXS CV STRS 13751 GRAEME AMIN WAESPE TST 7 MD XERS&/OR CONSULTIN RX CONT G SRV ECG I&R ONLY NONINVASI 67826 G[facility]EME AMIN AMIN VE 7 EAR/PULSE CONSULTIN OXIMETRY G SRV OVERNIGHT MONITOR TECHNETIU A9500 JUDY KIM M TC-99M 7 [facility] DX PER STUDY DOSE MYOCARDIA 27453 GRAEME AMIN WAESPE L SPECT 7 MULTIPLE CONSULTIN STUDIES G SRV CV STRS 84627 JUDY KIM TST 7 [facility] XERS&/OR [facility] HOSPITAL RX CONT ECG TRCG ONLY ECHO 78897 GRAEME AMIN AMIN TTHRC R-T 7 2D CONSULTIN W/WOM-MOD G SRV E COMPL SPEC&COLR D LIPID 48595 [facility] PANEL 7 [facility] INC INC POTASSIUM 20581 [facility] SERUM [address] [facility] HOSP PLASMA/[place] [address] [facility] THYROID 7 [facility] HOSP STIMULATI INC INC NG HORMONE TSH COLLECTIO 76356 [facility] N VENOUS 7 COUNTS INCLUDE 234 [facility] BLOOD INC INC VENIPUNCT URE RADIOLOGI 88388 [place] [place] C EXAM 7 RADIOLOGY CHEST 2 VIEWS FRONTAL&L ATERAL COMPREHEN 96276 JUDY KIM SIVE [address] [place] [address] PANEL ECG 03983 JUDY KIM ROUTINE 7 [facility] W/LEAST 12 LDS TRCG ONLY W/O I&R THER 91563 JUDY RODGERS JR PROPH/DX 7 [facility] PUSH SINGLE/1S T SBST/DRUG BLOOD 80531 JUDY KIM COUNT 7 [facility] AUTO&[place] [address] JUDY KIM TROPONIN 7 [facility] JAG INJECTION J1040 [facility] 7 METHYLPRE ORTHOPAED DNISOLONE ICS PSC ACETATE 80 MG NJX 05958 [facility]/THER 7 SBST ORTHOPAED INTRLMNR ICS PSC LMBR/SAC W/IMG GDN PROF SVCS 48395 ALLERGY ZIEGLER ALLG 7 PARTNERS IMMNTX X OF [place] W/PRV CO ALLGIC XTRCS NJXS URNLS DIP 77346 BROCK MAGED 7 AND STICK/TAB MAGED, LET RGNT PSC NON-AUTO W/O MICRSCP PREPJ& 31215 ALLERGY ZIEGLER ALLERGEN 7 PARTNERS IMMUNOTHE OF [place] RAPY CO 1/BL[place] [address] ALLERGY ZIEGLER ALLG 7 PARTNERS IMMNTX X OF [place] W/[place] [address] ALLERGY ZIEGLER ALLG 7 PARTNERS IMMNTX X OF [place] W/PRV CO ALLGIC XTRCS NJXS RADIOLOGI 11567 [facility] MARTI C 7 EXAMINATI ORTHOPAED ON KNEE ICS PSC 1/2 VIEWS ECG 58201 [facility] ROUTINE 6 [facility] ECG INC INC W/LEAST 12 LDS TRCG ONLY W/O I&R ECG 56817 [facility] ADAM JR ROUTINE 6 [facility] W/LEAST P 12 LDS I&R ONLY PRESSURIZ 37747 [facility] ED/NONPRE 6 [facility] SSURIZED INC INC INHALATIO N TREATMENT SPMTRY 55475 ALLERGY ZIEGLER MAR W/VC 6 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 [place] Y CLARA CO W/WO MXML VOL VNTJ NITRIC 08476 ALLERGY ZIEGLER MAR OXIDE 6 [facility] [place] GAS CO DETERMINA TION [facility] 51148 ALLERGY ZIEGLER MAR ALLG 6 PARTNERS IMMNTX X OF [place] W/PRV CO ALLGIC XTRCS NJXS [facility] 11125 ALLERGY ZIEGLER MAR ALLG 6 PARTNERS IMMNTX X OF [place] W/PRV CO ALLGIC XTRCS NJXS [facility] 32888 ALLERGY ZIEGLER MAR ALLG 6 PARTNERS IMMNTX X OF [place] W/PRV CO ALLGIC XTRCS NJXS PREPJ& 02753 ALLERGY ZIEGLER MAR ALLERGEN 6 PARTNERS IMMUNOTHE OF [place] RAPY CO 1/BLOOD BANK COORDINATOR ANTIGEN 3D 89856 [place] [facility] RENDERING 6 MEDICAL W/INTERP IMAGING & ASS POSTPROCE SS SUPERVISI ON MRI 36346 [place] [facility] SPINAL 6 MEDICAL CANAL IMAGING LUMBAR ASS W/O CONTRAST MATERIAL [facility] 76623 ALLERGY ZIEGLER MAR ALLG 6 PARTNERS IMMNTX X OF [place] W/PRV CO ALLGIC XTRCS NJXS [facility] 67639 ALLERGY ZIEGLER MAR ALLG 6 PARTNERS IMMNTX X OF [place] W/PRV CO ALLGIC XTRCS NJXS RADEX 65863 BLUELOIS MARTI SPINE 6 GRE LUMBOSACR ORTHOPAED AL 2/3 ICS PSC VIEWS RADIOLOGI 21702 [facility] MARTI C 6 GRE EXAMINATI ORTHOPAED ON KNEE ICS PSC 1/2 VIEWS [facility] 55118 ALLERGY ZIEGLER MAR ALLG 6 PARTNERS IMMNTX X OF [place] W/PRV CO ALLGIC XTRCS NJXS OPHTH 46011 [facility] 6 VISION XM&EVAL CENTER COMPRHNSV ESTAB PT 1/> DETERMINA 44377 [facility] TION 6 [facility] 41314 ALLERGY ZIEGLER MAR ALLG 6 PARTNERS IMMNTX X OF [place] W/PRV CO ALLGIC XTRCS NJXS [facility] 67000 ALLERGY ZIEGLER MAR ALLG 6 PARTNERS IMMNTX X OF [place] W/PRV CO ALLGIC XTRCS NJXS SPMTRY 16184 ALLERGY ZIEGLER MAR W/VC 6 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 [place] Y CLARA CO W/WO MXML VOL VNTJ NITRIC 64327 ALLERGY ZIEGLER MAR OXIDE 6 [facility] [place] GAS CO DETERMINA TION DEMO&/GERMAINE 46671 ALLERGY ALLERGY L OF PT 6 PARTNERS PARTNERS UTILIZ OF [place] OF [place] AERSL CO CO GEN/NEB/I NHLR/IP [facility] 30005 ALLERGY ZIEGLER MAR ALLG 6 PARTNERS IMMNTX X OF [place] W/PRV CO ALLGIC XTRCS NJXS [facility] 03978 ALLERGY ZIEGLER MAR ALLG 6 PARTNERS IMMNTX X OF [place] W/PRV CO ALLGIC XTRCS NJXS [facility] 64715 ALLERGY ZIEGLER MAR ALLG 6 PARTNERS IMMNTX X OF [place] W/PRV CO ALLGIC XTRCS NJXS RADIOLOGI 68359 BLUELOIS MOREIRAGELO C 6 GRE EXAMINATI ORTHOPAED ON KNEE ICS PSC 1/2 VIEWS [facility] 25056 ALLERGY ZIEGLER MAR ALLG 6 PARTNERS IMMNTX X OF [place] W/PRV CO ALLGIC XTRCS NJXS [facility] 48605 ALLERGY ZIEGLER MAR ALLG 6 PARTNERS IMMNTX X OF [place] W/PRV CO ALLGIC XTRCS NJXS [facility] 46818 ALLERGY ZIEGLER MAR ALLG 6 PARTNERS IMMNTX X OF [place] W/PRV CO ALLGIC XTRCS NJXS SCREENING G0202 [facility] 6 MEDICAL LILLIE MAMMOGRAP IMAGING HY BENEDICT ASS INCL CAD WHEN PERFORMD COMPUTER- 16458 [facility] AIDED 6 MEDICAL LILLIE DETECTION IMAGING ASS SCREENING MAMMOGRAP HY THERAPEUT 03597 [facility] IC PX 1/> 6 [facility] AREAS INC INC EACH 15 MIN EXERCISES [facility] 56063 ALLERGY ZIEGLER MAR ALLG 6 PARTNERS IMMNTX X OF [place] W/PRV CO ALLGIC XTRCS NJXS THERAPEUT 78195 [facility] IC PX 1/> 6 [facility] AREAS INC INC EACH 15 MIN EXERCISES THERAPEUT 85611 [facility] HUNTERON IC PX 1/> 6 [facility] AREAS INC INC EACH 15 MIN EXERCISES IADNA 22821 BIO BIO TRICHOMON 6 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 EACH 15 MIN EXERCISES [facility] 26348 ALLERGY ZIEGLER MAR ALLG 6 PARTNERS IMMNTX X OF [place] W/PRV CO ALLGIC XTRCS NJXS THERAPEUT 66798 [facility] HUNTERON IC PX 1/> 6 [facility] AREAS INC INC EACH 15 MIN EXERCISES THERAPEUT 86285 INDIO INDIO IC PX 1/> 6 [facility] AREAS INC INC EACH 15 MIN EXERCISES THERAPEUT 26067 INDIO INDIO IC PX 1/> 6 [facility] AREAS INC INC EACH 15 MIN EXERCISES PREPJ& 17284 ALLERGY ZIEGLER MAR ALLERGEN 6 PARTNERS IMMUNOTHE OF [place] RAPY CO 1/BLOOD BANK COORDINATOR ANTIGEN THERAPEUT 33885 INDIO INDIO IC PX 1/> 6 [facility] AREAS INC INC EACH 15 MIN EXERCISES PHYSICAL 86612 [facility] THERAPY 6 [facility] EVALUATIO INC INC N 48155 [facility] GUIDANCE 6 ANESTHESI NEEDLE A PLACEMENT ASSOCIAT IMG S&I ARTHRP 04140 [facility] MARTI KNEE 6 GRE CONDYLE&P ORTHOPAED LATEAU ICS PSC MEDIAL/LA T CMPRT DEVILS ELBOW E0135 [employer] FOLDING 6 ADJUSTABL E OR FIXED HEIGHT INJECTION 21772 [facility] S[facility] 6 ANESTHESI ANESTHETI A C AGENT ASSOCIAT FEMORAL NERVE SINGLE [facility] 02922 ALLERGY ZIEGLER MAR ALLG 6 PARTNERS IMMNTX X OF [place] W/PRV CO ALLGIC XTRCS NJXS COLLECTIO 97970 [facility] N VENOUS 6 DIAGNOSTI DIAGNOSTI BLOOD CS CS VENIPUNCT [place] [address] [facility] THYROID 6 DIAGNOSTI DIAGNOSTI STIMULATI CS CS NG INCORPORA INCORPORA HORMONE T T TSH LIPID 10062 [facility] PANEL 6 DIAGNOSTI DIAGNOSTI CS CS INCORPORA INCORPORA T T ANNUAL G0439 BROCK LYNNE WELLNESS 6 AND JANE VST; SONY LYNNEI PSC ZED PPS SUBSQT VST ECG 05954 JUDY KIM ROUTINE 6 [facility] HOSPITAL W/LEAST 12 LDS TRCG ONLY W/O I&R URNLS DIP 38326 JUDY KIM [address] [place] [address] LET REAGENT AUTO MICROSCOP Y HEMOGLOBI 27794 JUDY KIM N [address] [place] [address] STEFANO A1C BLOOD 15160 JUDY KIM COUNT [address] [place] [address] AUTO&AUTO DIFRNTL WBC BASIC 33781 JUDY KIM METABOLIC [address] [place] [address] CALCIUM TOTAL ECG 83495 GRAEME AMIN AMIN GRAEME ROUTINE 6 MD ECG CONSULTIN W/LEAST G SRV 12 LDS I&R ONLY PROTHROMB 57163 JUDY KIM IN TIME [address] [place] [address] CUL 56959 JUDY KIM PRSMPTV [address] [place] [address] HOSPITAL ORGANISM SCRN W/COLONY ESTIMJ RADIOLOGI 98068 [place] NIKKI C EXAM 6 RADIOLOGY RHO CHEST 2 VIEWS FRONTAL&L ATERAL COLLECTIO 98344 JUDY KIM N VENOUS [address] [place] [address] VENIPUNCT URE THROMBOPL 85909 JUDY KIM ASTIN [address] [place] [address] PARTIAL PLASMA/WH OLE BLOOD PROF SVCS 02978 ALLERGY ZIEGLER MAR ALLG 6 PARTNERS IMMNTX X OF [place] W/PRV CO ALLGIC XTRCS NJXS PROF SVCS 42210 ALLERGY ZIEGLER MAR ALLG 6 PARTNERS IMMNTX X OF [place] W/PRV CO ALLGIC XTRCS NJXS PROF SVCS 14979 ALLERGY ZIEGLER MAR ALLG 6 PARTNERS IMMNTX X OF [place] W/PRV CO ALLGIC XTRCS NJXS PROF SVCS 27263 ALLERGY ZIEGLER MAR ALLG 6 PARTNERS IMMNTX X OF [place] W/PRV CO ALLGIC XTRCS NJXS RADIOLOGI 18895 CHASTITY Suárez 6 SOPHIE EXAMINATI ORTHOPAED ON KNEE 3 [place] [address] ALLERGY ZIEGLER MAR ALLG 6 PARTNERS IMMNTX X OF [place] W/PRV CO ALLGIC XTRCS NJXS INCISION 41032 INDIO INDIO & REMOVAL 6 [facility] FOREIGN INC INC BODY SUBQ TISS COMPL PREPJ& 09971 ALLERGY ZIEGLER MAR ALLERGEN 6 PARTNERS IMMUNOTHE OF [place] RAPY CO 1/[place] [address] ALLERGY ZIEGLER MAR ALLG 6 PARTNERS IMMNTX X OF [place] W/[place] [address] ALLERGY ZIEGLER MAR ALLG 6 PARTNERS IMMNTX X OF [place] W/[place] [address] ALLERGY ZIEGLER MAR ALLG 6 PARTNERS IMMNTX X OF [place] W/[place] [address] ALLERGY ZIEGLER MAR ALLG 6 PARTNERS IMMNTX X OF [place] W/[place] [address] ALLERGY ZIEGLER MAR ALLG 6 PARTNERS IMMNTX X OF [place] W/PRV CO ALLGIC XTRCS NJXS ARTHROCEN 88362 [facility] TESIS 6 [place] SOP[place]IE ASPIR&/IN ORTHOPAED J MAJOR ICS PLC JT/BURSA W/O US HYALURONA J7324 [facility] N/DERIV 6 [place] SOP[place] ORTHOVISC ORTHOPAED [place] [address] ALLERGY ZIEGLER MAR ALLG 6 PARTNERS IMMNTX X OF [place] W/PRV CO ALLGIC XTRCS NJXS PROF SVCS 07621 ALLERGY ZIEGLER MAR ALLG 6 PARTNERS IMMNTX X OF [place] W/PRV CO ALLGIC XTRCS NJXS SPMTRY 34822 ALLERGY ZIEGLER MAR W/VC 6 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 [place] Y CLARA CO W/WO MXML VOL VNTJ NITRIC 04793 ALLERGY ZIEGLER MAR OXIDE 6 PARTNERS OF [place] GAS CO DETERMINA TION PROF SVCS 08222 ALLERGY ZIEGLER MAR ALLG 6 PARTNERS IMMNTX X OF [place] W/PRV CO ALLGIC XTRCS NJXS PROF SVCS 76718 ALLERGY ZIEGLER MAR ALLG 6 PARTNERS IMMNTX X OF [place] W/PRV CO ALLGIC XTRCS NJXS PROF SVCS 98298 ALLERGY ZIEGLER MAR ALLG 6 PARTNERS IMMNTX X OF [place] W/PRV CO ALLGIC XTRCS NJXS PROF SVCS 91190 ALLERGY ZIEGLER MAR ALLG 6 PARTNERS IMMNTX X OF [place] W/PRV CO ALLGIC XTRCS NJXS PROF SVCS 31077 ALLERGY ZIEGLER MAR ALLG 6 PARTNERS IMMNTX X OF [place] W/PRV CO ALLGIC XTRCS NJXS PROF SVCS 42861 ALLERGY ZIEGLER MAR ALLG 6 PARTNERS IMMNTX X OF [place] W/PRV CO ALLGIC XTRCS NJXS PREPJ& 72585 ALLERGY ZIEGLER MAR ALLERGEN 6 PARTNERS IMMUNOTHE OF [place] RAPY CO 1/BLOOD BANK COORDINATOR ANTIGEN PROF SVCS 97814 ALLERGY ZIEGLER MAR ALLG 6 PARTNERS IMMNTX X OF [place] W/PRV CO ALLGIC XTRCS NJXS PROF SVCS 69599 ALLERGY ZIEGLER MAR ALLG 6 PARTNERS IMMNTX X OF [place] W/PRV CO ALLGIC [facility] PROF SVCS 10287 ALLERGY ZIEGLER MAR ALLG 6 PARTNERS IMMNTX X OF [place] W/PRV CO ALLGIC [facility] PROF SVCS 87547 ALLERGY ZIEGLER MAR ALLG 6 PARTNERS IMMNTX X OF [place] W/PRV CO ALLGIC [facility] PROF SVCS 23483 ALLERGY ZIEGLER MAR ALLG 5 PARTNERS IMMNTX X OF [place] W/PRV CO ALLGIC [facility] THERAPEUT 59047 [facility] IC PX 1/> 5 [facility] ARE[facility] INC INC EACH 15 MIN EXERCISES APPLICATI 95730 [facility] ON 5 [facility] MODALITY INC INC 1/> AREAS HOT/COLD PACKS E-STIM [id number] [facility] 1/> AREAS 5 [facility] OTH THAN INC INC WND CARE PART TX PLAN E-STIM G0283 [facility] 1/> AREAS 5 [facility] OTH THAN INC INC WND CARE PART TX PLAN APPL 12545 [facility] MODALITY 5 [facility] 1/> AREAS INC INC VASOPNEUM ATIC DEVICES PHYSICAL 76091 [facility] THERAPY 5 [facility] EVALUATIO INC INC N THERAPEUT 19704 [facility] IC PX 1/> 5 [facility] AREAS INC INC EACH 15 MIN EXERCISES DEMO&/GERMAINE 59141 ALLERGY ZIEGLER MAR L OF PT 5 PARTNERS UTILIZ OF [place] AERSL CO GEN/NEB/I NHLR/IP NITRIC 92963 ALLERGY ZIEGLER MAR OXIDE 5 PARTNERS OF [place] GAS CO DETERMINA TION SPMTRY 49750 ALLERGY ZIEGLER MAR W/VC 5 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 [place] Y CLARA CO W/WO MXML VOL VNTJ PROF SVCS 84287 ALLERGY ZIEGLER MAR ALLG 5 PARTNERS IMMNTX X OF [place] W/PRV CO ALLGIC [facility] PROF SVCS 84124 ALLERGY ZIEGLER MAR ALLG 5 PARTNERS IMMNTX X OF [place] W/PRV CO ALLGIC [facility] PROF SVCS 87837 ALLERGY ZIEGLER MAR ALLG 5 PARTNERS IMMNTX X OF [place] W/PRV CO ALLGIC [facility] PROF SVCS 47056 ALLERGY ZIEGLER MAR ALLG 5 PARTNERS IMMNTX X OF [place] W/PRV CO ALLGIC [facility] PROF SVCS 84442 ALLERGY ZIEGLER MAR ALLG 5 PARTNERS IMMNTX X OF [place] W/PRV CO ALLGIC [facility] PROF SVCS 25390 ALLERGY ZIEGLER MAR ALLG 5 PARTNERS IMMNTX X OF [place] W/PRV CO ALLGIC [facility] ANES 54841 [facility] BYRNE OPEN/SURG 5 ANESTHESI ROSALES A GROUP ARTHROSCO PS PIC PROC KNEE JOINT NOS ARTHRS 38397 [facility] KNE SURG 5 [place] W/MENISCE ORTHOPAED CTOMY ICS PLC MED/LAT W/SHVG PROF SVCS 96472 ALLERGY ZIEGLER MAR ALLG 5 PARTNERS IMMNTX X OF [place] W/PRV CO ALLGIC [facility] PROF SVCS 95110 ALLERGY ZIEGLER MAR ALLG 5 PARTNERS IMMNTX X OF [place] W/PRV CO ALLGIC [facility] RADIOLOGI 04234 [facility]TR[facility] [place] NIKKI C EXAM 5 RADIOLOGY RHO CHEST 2 VIEWS FRONTAL&L ATERAL COLLECTIO 27445 [facility] N VENOUS 5 N N BLOOD COMMUNTIY COMMUNTIY VENIPUNCT HOSPITA HOSPITA URE BASIC 88929 [facility] METABOLIC 5 N N PANEL COMMUNTIY COMMUNTIY CALCIUM HOSPITA HOSPITA TOTAL ECG 09818 [facility] ROUTINE 5 N N ECG COMMUNTIY COMMUNTIY W/LEAST HOSPITA HOSPITA 12 LDS TRCG ONLY W/O I&R BLOOD 54266 [facility] COUNT 5 N N COMPLETE COMMUNTIY COMMUNTIY AUTOMATED HOSPITA HOSPITA PROF SVCS 06812 ALLERGY ZIEGLER MAR ALLG 5 PARTNERS IMMNTX X OF [place] W/PRV CO ALLGIC [facility] PROF SVCS 35689 ALLERGY ZIEGLER MAR ALLG 5 PARTNERS IMMNTX X OF [place] W/PRV CO ALLGIC [facility] PROF SVCS 10947 ALLERGY ZIEGLER MAR ALLG 5 PARTNERS IMMNTX X OF [place] W/PRV CO ALLGIC [facility] PROF SVCS 56782 ALLERGY ZIEGLER MAR ALLG 5 PARTNERS IMMNTX X OF [place] W/PRV CO ALLGIC [facility] PROF SVCS 44590 ALLERGY ZIEGLER MAR ALLG 5 PARTNERS IMMNTX X OF [place] W/PRV CO ALLGIC XTRCS NJXS MRI ANY 59255 [facility] JT LOWER 5 [place] SOP[place] EXTREM ORTHOPAED W/O ICS PLC CONTRAST MATRL PROF SVCS 78674 ALLERGY ZIEGLER MAR ALLG 5 PARTNERS IMMNTX X OF [place] W/PRV CO ALLGIC [facility] PROF SVCS 77039 ALLERGY ZIEGLER MAR ALLG 5 PARTNERS IMMNTX X OF [place] W/PRV CO ALLGIC [facility] PROF SVCS 47510 ALLERGY ZIEGLER MAR ALLG 5 PARTNERS IMMNTX X OF [place] W/PRV CO ALLGIC [facility] PROF SVCS 45065 ALLERGY ZIEGLER MAR ALLG 5 PARTNERS IMMNTX X OF [place] W/PRV CO ALLGIC [facility] INJECTION J1100 BROCK MAGED 5 AND JANE DEXAMETHO MAGED, SONE PSC SODIUM PHOSPHATE 1 MG INJECTION J0696 BROCK MAGED 5 AND JANE CEFTRIAXO MAGED, NE SODIUM PSC PER 250 MG PROF SVCS 85136 ALLERGY ZIEGLER MAR ALLG 5 PARTNERS IMMNTX X OF [place] W/PRV CO ALLGIC [facility] PROF SVCS 99395 ALLERGY ZIEGLER MAR ALLG 5 PARTNERS IMMNTX X OF [place] W/PRV CO ALLGIC [facility] PROF SVCS 82788 ALLERGY ZIEGLER MAR ALLG 5 PARTNERS IMMNTX X OF [place] W/PRV CO ALLGIC [facility] PROF SVCS 46506 ALLERGY ZIEGLER MAR ALLG 5 PARTNERS IMMNTX X OF [place] W/PRV CO ALLGIC [facility] PROF SVCS 93706 ALLERGY ZIEGLER MAR ALLG 5 PARTNERS IMMNTX X OF [place] W/PRV CO ALLGIC XTRCS NJXS PROF SVCS 75156 ALLERGY ZIEGLER MAR ALLG 5 PARTNERS IMMNTX X OF [place] W/PRV CO ALLGIC XTRCS NJXS PROF SVCS 49048 ALLERGY ZIEGLER MAR ALLG 5 PARTNERS IMMNTX X OF [place] W/PRV CO ALLGIC XTRCS NJXS PROF SVCS 66574 ALLERGY ZIEGLER MAR ALLG 5 PARTNERS IMMNTX X OF [place] W/PRV CO ALLGIC XTRCS NJXS PREPJ& 39577 ALLERGY ZIEGLER MAR ALLERGEN 5 PARTNERS IMMUNOTHE OF [place] RAPY CO 1/BLOOD BANK COORDINATOR ANTIGEN PERCUTANE 59407 ALLERGY ZIEGLER MAR OUS TESTS 5 PARTNERS OF [place] W/ALLERGE CO ABNER EXTRACTS INTRACUTA 04110 ALLERGY ALLERGY NEOUS 5 PARTNERS PARTNERS TESTS OF [place] OF [place] W/ALLERGE CO CO ABNER EXTRACTS PERCUTANE 62985 ALLERGY ZIEGLER MAR OUS TESTS 5 PARTNERS OF [place] W/ALLERGE CO ABNER EXTRACTS NITRIC 01444 ALLERGY ZIEGLER MAR OXIDE 5 PARTNERS OF [place] GAS CO DETERMINA TION SPMTRY 26680 ALLERGY ZIEGLER MAR W/VC 5 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 [place] Y CLARA CO W/WO MXML VOL VNTJ HYALURONA J7324 [facility] N/DERIV 5 [place] SOP[facility]IE ORTHOVISC ORTHOPAED [place] INJ ICS [facility] PER DOSE ARTHROCEN 19085 [facility] TESIS 5 [place] ASPIR&/IN ORTHOPAED J MAJOR ICS PLC JT/BURSA W/O US ARTHROCEN 83876 [facility] TESIS 5 [place] ASPIR&/IN ORTHOPAED J MAJOR ICS PLC JT/BURSA W/O US HYALURONA J7324 [facility] N/DERIV 5 [place] SOP[place]IE ORTHOVISC ORTHOPAED IA INJ ICS PLC PER DOSE HYALURONA J7324 [facility] N/DERIV 5 [place] SOP[place]IE ORTHOVISC ORTHOPAED IA INJ ICS PLC PER DOSE ARTHROCEN 18783 [facility] TESIS 5 [place] SOP[place] ASPIR&/IN ORTHOPAED J MAJOR ICS PLC JT/BURSA W/O US SCREENING G0202 [facility] 5 [facility] MAMMOGRAP INC INC HY BENEDICT INCL CAD WHEN PERFORMD 26009 [facility] AIDED 5 [facility] DETECTION INC INC SCREENING MAMMOGRAP HY URINLS 75608 CHARLES SOTO R DIP 5 DILMA PERERA MD STICK/TAB LET REAGNT NON-AUTO MICRSCPY ANNUAL G0439 CHARLES PERERA WELLNESS 5 DILMA CASILLAS VST; PERSONALI ZED PPS SUBSQT VST IADNA 67687 BIO BIO 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 [place] [address] [facility] INFUSION 5 [facility] THERAPY/P INC INC ROPHYLAXI S /DX 1ST TO 1 HR GLUCOSE 29661 [facility] BODY 5 N N FLUID COMMUNTIY COMMUNTIY OTHER HOSPITA HOSPITA THAN BLOOD SPINAL 38438 [facility] [place] SCAL[place] ELIU PUNCTURE 5 RADIOLOGY LUMBAR DIAGNOSTI C PROTEIN 70474 [facility] TOTAL 5 N N XCPT COMMUNTIY COMMUNTIY REFRACTOM HOSPITA HOSPITA ETRY OTH SRC FLUOR 91857 [facility] [place] [facility]AL[facility] ELIU NEEDLE/CA 5 RADIOLOGY TH SPINE/PAR ASPINAL DX/THER ADDON SMR PRIM 95050 [facility] SRC 5 N N GRAM/GIEM COMMUNTIY COMMUNTIY SA STAIN HOSPITA HOSPITA BCT FUNGI/JOSE L CUL BACT 17450 [facility] XCPT 5 N N URINE COMMUNTIY COMMUNTIY BLOOD/STO HOSPITA HOSPITA OL AEROBIC ISOL CYTP 63940 [facility] SLCTV 5 CLAIRE & ELIU CELL DUBILIER ENHANCEME NT INTERPJ XCPT C/V CELL 59868 [facility] COUNT 5 N N MISC BODY COMMUNTIY COMMUNTIY FLUIDS HOSPITA HOSPITA W/DIFFERE NTIAL COUNT RADIOLOGI 32678 [facility] C EXAM 5 N N BOTH COMMUNTIY COMMUNTIY KNEES HOSPITA HOSPITA STANDING ANTEROPOS T RADIOLOGI 70639 [facility] [place] [facility]AL[facility] ELIU C 5 RADIOLOGY EXAMINATI ON KNEE 3 VIEWS RADIOLOGI 14913 [facility] C 5 N N EXAMINATI COMMUNTIY COMMUNTIY ON KNEE HOSPITA HOSPITA 1/2 VIEWS E-STIM G0283 [facility] 1/> AREAS 5 [facility] OTH THAN INC INC WND CARE PART TX PLAN APPLICATI 28743 [facility] B[facility] ON 5 [facility] MODALITY INC INC 1/> AREAS HOT/COLD PACKS MANUAL 79199 [facility] THERAPY 5 [facility] TQS 1/> INC INC REGIONS EACH 15 MINUTES APPLICATI 44860 [facility] ON 5 [facility] MODALITY INC INC 1/> AREAS HOT/COLD PACKS E-STIM G0283 [facility] 1/> AREAS 5 [facility]OS[facility] OTH THAN INC INC WND CARE PART TX PLAN E-STIM G0283 [facility] B[facility]AS 1/> AREAS 5 [facility]OS[facility] OTH THAN INC INC WND CARE PART TX PLAN APPLICATI 79701 [facility] ON 5 [facility] MODALITY INC INC 1/> AREAS HOT/COLD PACKS MANUAL 09119 [facility] THERAPY 5 [facility] TQS 1/> INC INC REGIONS EACH 15 MINUTES MANUAL 29652 [facility] THERAPY 5 [facility] TQS 1/> INC INC REGIONS EACH 15 MINUTES APPLICATI 21320 [facility] ON 5 [facility] MODALITY INC INC 1/> AREAS HOT/COLD PACKS E-STIM G0283 [facility] B[facility] 1/> AREAS 5 [facility]OS[facility] OTH THAN INC INC WND CARE PART TX PLAN E-STIM G0283 [facility] B[facility] 1/> AREAS 5 [facility]OS[facility] OTH THAN INC INC WND CARE PART TX PLAN APPLICATI 42697 [facility] B[facility] ON 5 [facility] MODALITY INC INC 1/> AREAS HOT/COLD PACKS MANUAL 33645 [facility] THERAPY 5 [facility] TQS 1/> INC INC REGIONS EACH 15 MINUTES MANUAL 64008 [facility] THERAPY 5 [facility] TQS 1/> INC INC REGIONS EACH 15 MINUTES APPLICATI 13101 [facility] ON 5 [facility] MODALITY INC INC 1/> AREAS HOT/COLD PACKS E-STIM G0283 [facility] B[facility]JAS 1/> AREAS 5 [facility] OTH THAN INC INC WND CARE PART TX PLAN PHYSICAL 20951 [facility] B[facility] THERAPY 5 [facility] EVALUATIO INC INC N THERAPEUT 82101 [facility] BORJAS IC PX 1/> 5 [facility] AREAS INC INC EACH 15 MIN EXERCISES MRI BRAIN 22021 [facility] [place] RYNE BRAIN 5 RADIOLOGY III JAYESH STEM W/O CONTRAST MATERIAL KNEE L1845 ADVANCED ADVANCED ORTHOSIS 4 TECHNOLOG TECHNOLOG DOUBLE IES INC IES INC UPRIGHT THIGH & CALF PREFAB RADIOLOGI 24824 [facility] C 4 N N EXAMINATI COMMUNITY COMMUNITY ON KNEE HOSPITA HOSPITA 1/2 VIEWS BLOOD 43393 [facility] COUNT 4 N N COMPLETE [facility] AUTOMATED HOSPITA HOSPITA COLLECTIO 02722 [facility] N VENOUS 4 N N BLOOD [facility] VENIPUNCT HOSPITA HOSPITA URE RADIOLOGI 66845 [facility] [place] NI[place] C 4 RADIOLOGY RHO EXAMINATI ON PELVIS 1/2 VIEWS COMPREHEN 01387 [facility] SIVE 4 N N METABOLIC [facility] PANEL HOSPITA HOSPITA RADIOLOGI 74646 [facility] [place] C 4 RADIOLOGY RHO EXAMINATI ON KNEE 3 VIEWS RADIOLOGI 44866 [facility] EXAM 4 N N BOTH [facility] KNEES HOSPITA HOSPITA STANDING ANTEROPOS T ADMINISTR G0008 [facility] PHARMACY PHARMACY INFLUENZA #591 #591 VIRUS VACCINE IIV3 VACC 68883 [facility] PHARMACY PRESERVAT #591 #591 JAG FREE 0.5 ML DOSAGE IM USE INJECTION J1100 MAGED LYNNE 4 JANE JANE DEXAMETHO SONE SODIUM PHOSPHATE 1 MG INJECTION J2405 [facility] 4 [facility] ONDANSETR INC INC ON HCL PER 1 MG THERAPEUT 04124 [facility] B[facility] IC 4 [facility] INJECTION [place] [address] [facility] INFUSION 4 [facility] THERAPY/P INC INC ROPHYLAXI S /DX 1ST TO 1 HR ARTHRS 34646 [facility] KNEE 4 [facility] ABRASION INC INC ARTHRP/ML T DRLG/[place] [address] [facility] INFUSION 4 [facility] THERAPY INC INC PROPHYLAX IS/DX EA HOUR ARTHRS 99812 [facility] KNEE 4 [facility] W/MENISCE INC INC CTOMY MED&LAT W/SHAVING BASIC 90733 [facility] METABOLIC 4 [facility] PANEL INC INC CALCIUM TOTAL ECG 07259 INDIO ADAM JR ROUTINE 4 [facility] W/LEAST P 12 LDS I&R ONLY BLOOD 02246 [facility] COUNT 4 [facility] COMPLETE INC INC AUTO&AUTO DIFRNTL WBC ECG 45506 [facility] ROUTINE 4 [facility] ECG INC INC W/LEAST 12 LDS TRCG ONLY W/O I&R COLLECTIO 72166 [facility] N VENOUS 4 [facility] BLOOD INC INC VENIPUNCT URE URNLS DIP 27803 MAGED LYNNE 4 JANE JANE STICK/TAB LET RGNT NON-AUTO W/O MICRSCP RADEX 18153 [facility] SPINE 4 [facility] LUMBOSACR INC INC AL MINIMUM 4 VIEWS CERV/VAGI G0101 CHARLES PERERA NAL 4 DILMA CASILLAS CANCER SCR; PELV&CLIN BREAST EXAM SCR G0145 BIO BIO CYTOPATH 4 REFERNCE REFERNCE CERV/VAG LABORATOR LABORATOR SCR IES IES AUTO&MNL RSCR PHYS RADIOLOGI 64421 [facility]AS C 4 [facility] EXAMINATI INC INC ON KNEE 3 VIEWS IADNA 52095 BIO BIO TRICHOMON 4 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 VAGINALIS IES IES AMPLIFIED PROBE TECH ANNUAL G0438 CHARLES PERERA WELLNESS 4 DIMLA CASILLAS VISIT; PERSONALI Z PPS INIT VISIT THERAPEUT 72552 [facility] IC 4 [facility] PROPHYLAC INC INC TIC/DX INJECTION SUBQ/IM SCREEN Q0091 CHARLES PERERA PAP 4 DILMA CASILLAS SMEAR; OBTAIN PREP &C ONVEY TO LAB URINLS 63462 CHARLES Bojorquez DIP 4 DILMA PERERA MD STICK/TAB LET REAGNT NON-AUTO MICRSCPY BLOOD 73620 [facility] COUNT 4 SUZI SUZI COMPLETE [facility] AUTOMATED COMPREHEN 97056 [facility] SIVE 4 [facility] METABOLIC [place] [address] [facility] THYROID 4 [facility] STIMULATI [facility] NG HORMONE TSH ARTHROCEN 94330 [facility] TESIS 4 PHYSICIAN ALFONSO ASPIR&/IN S GROUP J MAJOR JT/[place] W/[place] [address] [facility] B[facility] THYROID 4 [facility] STIMULATI INC INC NG HORMONE TSH COMPREHEN 89872 [facility] SIVE 4 [facility] METABOLIC INC INC PANEL BLOOD 44375 [facility] COUNT 4 [facility] COMPLETE INC INC AUTO&AUTO DIFRNTL WBC URNLS DIP [address] [facility] HOSP STICK/TAB INC INC LET REAGENT AUTO MICROSCOP Y COLLECTIO 22259 INDIO Laguerre VENOUS [address] [facility] HOSP BLOOD INC INC VENIPUNCT URE LIPID 06543 [facility] PANEL 4 [facility] INC INC MRI ANY 52789 [facility] KLARIS[facility] JT LOWER 4 MEDICAL KASSANDRA EXTREM IMAGING W/O ASS CONTRAST MATRL THERAPEUT 98792 [facility] IC 4 [facility] PROPHYLAC INC INC TIC/DX INJECTION SUBQ/IM DIAGNOSTI G0204 [facility]JAS C [address] [facility] HOSP MAMMOGRAP INC INC HY INCL CAD WHEN PERF; BILAT HYALURONA J7325 [facility] N/DERIV 3 PHYSICIAN ALFONSO SYNVISC/S S GROUP YNVISC-ON E IA INJ 1 MG ARTHROCEN 66626 [facility] TESIS 3 PHYSICIAN ALFONSO ASPIR&/IN S GROUP J MAJOR JT/BURSA W/O US APPL 04615 MIAN ORTIZ MODALITY 3 MATT 1/> AREAS [place] [address] MIAN ORTIZ 1/> AREAS 3 MATT EACH 15 CHIROPRAC MIN TIC CENTE NEUROMUSC REEDUCA THERAPEUT 94295 MIAN ORTIZ IC PX 1/> 3 MATT AREAS CHIROPRAC EACH 15 TIC CENTE MIN EXERCISES APPLICATI 21980 MIAN DIANA ON 3 MATT MODALITY CHIROPRAC 1/> AREAS TIC CENTE HOT/COLD PACKS CHIROPRAC 86381 MIAN DIANA TIC 3 MATT MANIPULAT CHIROPRAC JAG TX TIC CENTE SPINAL 3-4 REGIONS CHIROPRAC 57001 MIAN DIANA TIC 3 MATT MANIPULAT CHIROPRAC JAG TX TIC CENTE SPINAL 3-4 REGIONS APPLICATI 63530 MIAN DIANA ON 3 MATT MODALITY CHIROPRAC 1/> AREAS TIC CENTE HOT/COLD PACKS THERAPEUT 43820 MIAN DIANA IC PX 1/> 3 MATT AREAS CHIROPRAC EACH 15 [place] [address] MIAN DIANA 1/> AREAS 3 MATT EACH 15 CHIROPRAC MIN TIC CENTE NEUROMUSC REEDUCA APPL 33962 MIAN DIANA MODALITY 3 MATT 1/> AREAS CHIROPRAC TRACTION TIC CENTE MECHANICA L APPL 75420 MIAN DIANA MODALITY 3 MATT 1/> AREAS CHIROPRAC TRACTION TIC CENTE MECHANICA L THERAPEUT 58286 MIAN DIANA IC PX 1/> 3 MATT AREAS CHIROPRAC EACH 15 TIC CENTE MIN EXERCISES APPLICATI 08977 MIAN ORTIZ ON 3 MATT MODALITY CHIROPRAC 1/> AREAS TIC CENTE HOT/COLD PACKS CHIROPRAC 68769 MIAN DIANA TIC 3 MATT MANIPULAT CHIROPRAC JAG TX TIC CENTE SPINAL 3-4 REGIONS BOTULINUM J0585 [facility] ÁNGEL TOXIN 3 N TYPE A NEUROLOGY PER UNIT CHEMODERV 61857 [facility] ATE 3 N FACIAL/TR NEUROLOGY IGEM/CERV MUSC MIGRAINE INJECTION J0171 [facility] 3 N N ADRENALIN [facility] EPINEPHRI NE 0.1 MG SEPTOPLAS 48111 [facility] TY/SUBMUC 3 N N OUS [facility] RESEC [facility] HOSPITA W/WO CARTILAGE GRF NASAL/SIN 66048 [facility] US 3 N N ENDOSCOPY [facility] HOSPITA HOSPITA W/MAXILLA RY ANTROSTOM Y SUBMUCOUS 76537 [facility] RESCJ 3 N N INFERIOR [facility] TURBINATE HOSPITA HOSPITA PRTL/COMP L INJ Q9968 [facility] NONRADIAT 3 N N JAG [facility] NONCONTRA HOSPITA HOSPITA ST VIZ ADJUNCT 1 MG NASAL/SIN 82579 [facility] 3 N N ENDOSCOPY [facility] HOSPITA HOSPITA W/ETHMOID ECTOMY TOTAL NASAL/SIN 54911 [facility] NDSC 3 N N W/FRONTAL [facility] SINUS HOSPITA HOSPITA EXPLORATI ON NASAL/SIN 26426 [facility] 3 N N ENDOSCOPY [facility] HOSPITA HOSPITA W/SPHENOI DOTOMY INJECTION J0690 [facility] 3 N N CEFAZOLIN [facility] SODIUM HOSPITA HOSPITA 500 MG STRTCTC 04171 [facility] CPTR 3 N N ASSTD PX [facility] EXTRADURA HOSPITA HOSPITA L CRANIAL INJECTION J3010 [facility] FENTANYL 3 N N CITRATE [facility] 0.1 MG HOSPITA HOSPITA INJECTION J2370 [facility] 3 N N PHENYLEPH [facility] RINE HCL HOSPITA HOSPITA UP TO 1 ML INJECTION J2405 [facility] 3 N N ONDANSETR [facility] ON HCL HOSPITA HOSPITA PER 1 MG ANESTHESI 72701 [facility] Damian NOSE & 3 ANESTHESI ELIU ACCESSORY A GROUP SINUSES PS NOS DECALCIFI 11635 [facility] CATION 3 N N PROCEDURE [facility] [place] [address] [facility] SURG 3 N N PATHOLOGY [facility] HOSPITA HOSPITA GROSS&MIKAL ROSCOPIC EXAM INJECTION J1100 [facility] 3 N N DEXAMETHO [facility] SONE HOSPITA HOSPITA SODIUM PHOSPHATE 1 MG INJECTION J2001 [facility] 3 N N LIDOCAINE [facility] HCL HOSPITA HOSPITA INTRAVENO US INFUS 10 MG BLOOD 52057 [facility] COUNT 3 N N HEMATOCRI [facility] T HOSPITA HOSPITA COLLECTIO 04395 [facility] N VENOUS 3 N N BLOOD [facility] VENIPUNCT HOSPITA HOSPITA URE BLOOD 17187 [facility] COUNT 3 N N HEMOGLOBI [facility] N HOSPITA HOSPITA INTRACUTA 47747 EAR, NOSE SHASHY NEOUS 3 AND HARESH TESTS THROAT W/ALLERGE SPECIAL ABNER EXTRACTS PERCUTANE 44449 EAR, NOSE SHASHY OUS TESTS 3 AND HARESH THROAT W/[place] [address] [facility] [place] [facility]AL[place] ELIU MAXILLOFA 3 RADIOLOGY CIAL W/O CONTRAST MATERIAL NASOPHARY 89036 EAR, NOSE SHASHY NGOSCOPY 3 AND HARESH W/[place] [address] MIAN ORTIZ 1/> AREAS 3 MATT EACH 15 CHIROPRAC MIN TIC CENTE NEUROMUSC REEDUCA APPL 57993 MIAN ORTIZ MODALITY 3 MATT 1/> AREAS CHIROPRAC TRACTION TIC CENTE MECHANICA L CHIROPRAC 09464 MIAN ORTIZ TIC 3 MATT MANIPULAT CHIROPRAC JAG TX TIC CENTE SPINAL 3-[place] [address] MIAN ORTIZ 1/> AREAS 3 MATT EACH 15 CHIROPRAC MINUTES TIC CENTE MASSAGE OPHTHALMO 19541 JACKELYN HAYDEN SCPY 3 JAM JAM EXTENDED RETINAL DRAWING I&R 1ST DETERMINA 51408 JACKELYN HAYDEN TION 3 JAM JAM REFRACTIV E STATE CHIROPRAC 02241 MIAN ORTIZ TIC 3 MATT MANIPULAT CHIROPRAC JAG TX TIC CENTE SPINAL 3-[place] [address] MIAN ORTIZ 1/> AREAS 3 MATT EACH 15 CHIROPRAC MINUTES TIC CENTE MASSAGE APPL 27944 MIAN ORTIZ MODALITY 3 MATT 1/> AREAS [place]OP[place] [address] MIAN ORTIZ 1/> AREAS 3 MATT EACH 15 CHIROPRAC [place] [address] MIAN ORTIZ 1/> AREAS 3 MATT EACH 15 CHIROPRAC MIN TIC CENTE NEUROMUSC REEDUCA APPL 17634 MIAN ORTIZ MODALITY 3 MATT 1/> AREAS [place]IROPRAC [place] [address] MIAN ORTIZ 1/> AREAS 3 MATT EACH 15 CHIROPRAC MINUTES TIC CENTE MASSAGE CHIROPRAC 12747 MIAN ORTIZ TIC 3 MATT MANIPULAT CHIROPRAC JAG TX TIC CENTE SPINAL 3-4 REGIONS THERAPEUT 65698 [facility] IC 2 [facility] PROPHYLAC INC INC TIC/DX INJECTION SUBQ/IM COMPUTER- 24152 [facility]AR[facility] AIDED 2 MEDICAL KASSANDRA DETECTION IMAGING ASS SCREENING MAMMOGRAP HY SCREENING G0202 [facility] KLARISSA 2 MEDICAL [place] MAMMOGRAP IMAGING HY BENEDICT ASS INCL CAD WHEN PERFORMD CHIROPRAC 43041 MIAN CALVERT DOMINIQUE TIC 2 MANIPULAT CHIROPRAC JAG TX TIC CENTE SPINAL 3-4 REGIONS CHIROPRAC 07731 MIAN CALVERT DOMINIQUE TIC 2 MANIPULAT CHIROPRAC JAG TX TIC CENTE SPINAL 3-4 REGIONS URIN 61739 CHARLES PERERA DIP 2 DILMA PEREZ SONJA STICK/TAB LET REAGNT NON-AUTO MICRSCPY ANNUAL G0438 CHARLES Bojorquez WELLNESS 2 DILMA PERERA MD VISIT; PERSONALI Z PPS INIT VISIT BLOOD 00018 CHARLES PERERA OCCULT 2 DILMA CASILLAS PEROXIDAS E ACTV QUAL FECES 1 DETER CYTP C/V 64714 BIO BIO AUTO THIN 2 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 PREPJ SCR IES IES MNL RESCR PHYS IADNA 07970 BIO BIO NEISSERIA 2 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 GONORRHOE IES IES AE AMPLIFIED PROBE TQ IADNA NOS 10782 BIO BIO 2 REFERNCE REFERNCE AMPLIFIED LABORATOR LABORATOR PROBE TQ IES IES EACH ORGANISM IADNA 12793 BIO BIO CHLAMYDIA 2 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 TRACHOMAT IES IES IS AMPLIFIED PROBE TQ CHIROPRAC 94656 MIAN DIANA TIC 2 MATT MANIPULAT CHIROPRAC JAG TX TIC CENTE SPINAL 3-4 REGIONS CHIROPRAC 84757 [place] CALVERT DOMINIQUE TIC 2 MANIPULAT CHIROPRAC JAG TX TIC CENTE SPINAL 3-4 REGIONS CHIROPRAC 52436 [place] CALVERT DOMINIQUE TIC 2 MANIPULAT CHIROPRAC JAG TX TIC CENTE SPINAL 3-4 REGIONS CHIROPRAC 62739 [place] CALVERT DOMINIQUE TIC 2 MANIPULAT CHIROPRAC JAG TX TIC CENTE SPINAL 3-4 REGIONS CHIROPRAC 86236 [place] CALVERT DOMINIQUE TIC 2 MANIPULAT CHIROPRAC JAG TX TIC CENTE SPINAL 3-4 REGIONS RADEX 14150 [facility] SPINE 2 MEDICAL KASSANDR[place] LUMBOSACR IMAGING AL ASS MINIMUM 4 VIEWS INJ J0702 [facility] BETAMETHA 2 JAM JAM SONE ACETATE & PHOSPHATE 3 MG INFLUENZA Q2036 [facility] VACC 2 JAM JAM SPLIT VIRUS 3 YRS & > IM FLULAVAL INJECTION J1100 [facility]OCK 2 JAM JAM DEXAMETHO SONE SODIUM PHOSPHATE 1 MG URNLS DIP 30575 [facility] BROCK 2 JAM JAM STICK/TAB LET RGNT NON-AUTO W/[place] [address] [facility] [place] [facility]OH[place] MAT ABDOMEN & 2 RADIOLOGY PELVIS W/O CONTRAST MATERIAL URNLS DIP 03346 [place] 2 [facility] STICK/TAB HOSPITAL HOSPITAL LET REAGENT AUTO MICROSCOP Y RADEX 34978 [facility] FOOT 2 [facility] COMPLETE INC INC MINIMUM 3 VIEWS TDAP 77925 [facility] VACCINE 7 2 [facility] YRS/> IM INC INC RADEX TOE 43620 [facility] B[facility] MINIMUM 2 [facility]OS[facility] 2 VIEWS INC INC RADIOLOGI 01503 [place] [facility] C 2 MEDICAL [place] EXAMINATI IMAGING ON KNEE [address] [place] [address] [facility] [place] ABDOMEN & 2 RADIOLOGY CAR PELVIS W/O CONTRAST MATERIAL CUL BACT [address] ADDL METHS DEFINITIV E EA ISOL SMR PRIM [address] GRAM/GIEM SA STAIN BCT FUNGI/JOSE L CUL BACT 39461 [facility] XCPT [address] [place] [address] URINE BLOOD/STO OL AEROBIC ISOL COMPREHEN 21954 [facility] SIVE [address] [place] [address] METABOLIC PANEL HEMOGLOBI [address] GLYCOSYLA STEFANO A1C PREALBUMI [address] DEBRIDEME [address] SUBCUTANE OUS TISSUE 20 SQ CM/< COLLECTIO 69867 [facility] VENOUS [address] [place] [address] BLOOD VENIPUNCT URE INJECTION J1100 MAGED LYNNE 1 JANE JANE DEXAMETHO SONE SODIUM PHOSPHATE 1 MG MRI LOWER 00392 [facility] KLARIS[facility] EXTREM 1 MEDICAL KASSANDRA OTH/THN IMAGING JT W/O ASS CONTR MATRL RADIOLOGI 32205 [facility] [place]KK[place] C 1 RADIOLOGY RHO EXAMINATI ON KNEE 3 VIEWS LOCM Q9967 [facility] [phone] [facility] MG/[facility] HOSPITAL IODINE CONCENTRA TION PER ML HI OSM Q9963 [facility] [place] 1 [facility] [phone] MG/[place] [address] [facility] [place] MAT ABDOMEN & 1 RADIOLOGY PELVIS W/CONTRAS T MATERIAL URNLS DIP 73826 [facility] 1 [facility] STICK/TAB INC INC LET REAGENT AUTO MICROSCOP Y MRI LOWER 04271 KRISHNA KELLER EXTREM [address] [place] [address] [facility] JT W/O & W/CONTR MATR NRV CNDJ 47025 ZOROASTRIAN JULIETA T AMPLITUDE 1 NEUROLOGY & SERVICES LATENCY EACH NERVE SENSORY H-REFLEX 06813 ZOROASTRIAN JULIETA [place] AMPLT&LAT 1 NEUROLOGY ENCY SERVICES GASTRCN/S OLEUS MUSC NRV CNDJ 85028 ZOROASTRIAN JULIETA T AMPLT&LAT 1 NEUROLOGY NCY EA SERVICES NRV MOTR W/O F-WAVE STD NRV CNDJ 34308 [facility] AMPLT&LAT 1 ZOROASTRIAN ZOROASTRIAN ENCY EA HOSP HOSP NRV MOTOR W/F-WAVE STD RADEX 97134 [facility] [place] ARCHER FOOT 1 RADIOLOGY KAHLIL COMPLE[place] MINIM[place] [address] [place] [address] [facility]JAS ABDOMEN & 1 [facility] PELVIS INC INC W/O CONTRAST MATERIAL URNLS DIP 66135 [facility]JAS 1 [facility] STICK/TAB INC INC LET REAGENT AUTO MICROSCOP Y 3D 89760 [facility]OR[facility]AS RENDERING 1 [facility] INC INC W/INTERP& POSTPROC DIFF [place] LOWER [address] [facility] EXTREMITY 0 N N W/O [facility] CONTRAST HOSPITA HOSPITA MATERIAL INITIAL 41389 [place] 1ST 0 EMERGENCY III CHERYL DEGREE SERVICES BURN LOCAL TX INJECTION J2405 [facility] 0 N N ONDANSETR [facility] COMMUNITY ON HCL HOSPITA HOSPITA PER 1 [place] [address] PATHOLOGY PATHOLOGY SURG 0 & & PATHOLOGY CYTOLOGY CYTOLOGY GROSS LAB LAB EXAMINATI ON ONLY RADIOLOGI 27516 [facility] C 0 N N EXAMINATI COMMUNITY [facility] ON FOOT 2 HOSPITA HOSPITA VIEWS COMPREHEN 39971 [facility] SIVE 0 N N METABOLIC COMMUNITY COMMUNITY PANEL HOSPITA HOSPITA FLUOROSCO 47009 [facility] PY SPX UP 0 N N TO 1 COMMUNITY COMMUNITY HOUR HOSPITA HOSPITA PHYS/QHP TIME RADIOLOGI 30187 [facility] [place] [facility] MAT C EXAM 0 RADIOLOGY CHEST 2 VIEWS FRONTAL&L ATERAL UNLISTED 16961 [facility] ANESTHESI 0 N N A COMMUNITY COMMUNITY PROCEDURE HOSPITA HOSPITA INJECTION J2250 [facility] 0 N N MIDAZOLAM [facility] HCL PER HOSPITA HOSPITA 1 MG BLOOD 62024 [facility] COUNT 0 N N COMPLETE [facility] AUTO&AUTO HOSPITA HOSPITA DIFRNTL WBC COLLECTIO 57033 [facility] N VENOUS 0 N N BLOOD [facility] VENIPUNCT HOSPITA HOSPITA URE ECG 75275 [facility] ROUTINE 0 N N ECG [facility] W/LEAST HOSPITA HOSPITA 12 LDS TRCG ONLY W/O I&R REMOVAL 82709 [facility] FOREIGN 0 N N BODY FOOT [facility] HOSPITA HOSPITA COMPLICAT ED ANES 40213 [place] RICHARD INTEG 0 ANESTHESI JOHN EXTREMITI A GROUP ES ANT PSC TRUNK & PERINEUM NOS RADIOLOGI 73060 [facility] ESPOSITO C 0 EMERGENCY DORIAN EXAMINATI SERVICES ON FOOT 2 VIEWS RADEX 27436 [facility] FOOT 0 N N [facility] MINIMUM 3 HOSPITA HOSPITA VIEWS RADIOLOGI 86628 [facility] [place]OH[place], C EXAM 0 RADIOLOGY MELISSA D CHEST 2 VIEWS FRONTAL&L ATERAL RADIOLOGI 69936 [place] KLARISSA C 0 MEDICAL EUNICE EXAMINATI IMAGING ON PELVIS ASSOCIATE 1/2 S VIEWS RADEX HIP 08217 [place] KLARISSA, 0 MEDICAL EUNICE UNILATERA IMAGING L ASSOCIATE COMPLETE S MINIMUM 2 VIEWS URNLS DIP 46294 [facility]JAS 0 [facility] STICK/TAB INC INC LET REAGENT AUTO MICROSCOP Y ANES 83419 [place] DEPA, UPPER GI 0 ANESTHESI MARCIA ENDOSCOPY A GROUP PROXIMAL PSC [place] DUODENUM EGD 42148 MICHELLE OWENS- TRANSORAL 0 ALEXANDRU, ALEXANDRU, BIOPSY ROSA LEE SINGLE/MU LTIPLE SPECIAL 12734 PATHOLOGY PATHOLOGY STAIN 0 & & GROUP 1 CYTOLOGY CYTOLOGY MICROORGA LAB LAB NISMS I&R SPCL STN 96927 PATHOLOGY PATHOLOGY 2 I&R 0 & & EXCPT CYTOLOGY CYTOLOGY MICROORG/ LAB LAB ENZYME/[place] [address] PATHOLOGY PATHOLOGY SURG 0 & & PATHOLOGY CYTOLOGY CYTOLOGY LAB LAB GROSS&[place] [address] INDIO BORJAS AMYLASE 0 [facility] INC INC CREATINE 58470 [facility]ORJAS KINASE MB 0 [facility] FRACTION INC INC ONLY COMPREHEN 09412 INDIO INDIO SIVE 0 [facility] METABOLIC INC INC PANEL ECG 23700 [facility] ADAM, ROUTINE 0 [facility] W/LEAST PROF SERV 12 LDS I&R ONLY ECG 91773 INDIOCYRUS [facility] ROUTINE [facility] ECG INC INC W/LEAST 12 LDS TRCG ONLY W/O I&R CREATINE 45658 INDIO [facility] KINASE 0 [facility] [place] [address] INDIO BORJAS LIPASE 0 [place] [address] INDIO B[facility]AS TROPONIN 0 [facility] QUANTITAT INC INC JAG BLOOD 77279 [facility] COUNT 0 [facility] COMPLETE INC INC AUTO&AUTO DIFRNTL WBC HYALURONA J7325 ESTRELLA BANEGAS N/DERIV 0 MEDICAL ODELL T SYNVISC/S SERV YNVISC-ON FOUNDATIO E IA INJ 1 MG APPL 52006 JUDY KIM MODALITY 0 [place] [address]/[facility] ULTRASOUN D EA 15 MIN THERAPEUT 21426 JUDY KIM IC PX 1/> 0 [facility] EACH 15 MIN EXERCISES INJECTION J3301 Promise REYNOLDS MEDICAL ODELL T TRIAMCINO SERV LONE FOUNDATIO ACETONIDE NOS 10 MG RADIOLOGI 59952 INDIO Suárez EXAM 9 [facility] BOTH INC INC KNEES STANDING ANTEROPOS T ARTHROCEN 17576 GIOVANNY REYNOLDS 9 MEDICAL ODELL T ASPIR&/IN SERV J MAJOR FOUNDATIO JT/BURSA W/O US RADIOLOGI 30376 [place] KLARISSA, C 9 MEDICAL EUNICE EXAMINATI IMAGING ON KNEE ASSOCIATE 1/2 VIEWS S MRI ANY 02857 CNTRL Keyna VALEROT LOWER 9 RADIOLOGY ADRIANA FAROOQ W/O CONTRAST MATRL RADIOLOGI 00191 [facility] KEL[facility] C 9 [facility] ON KNEE 3 VIEWS RADIOLOGI 97157 CNTRL Kamini SUMNER 9 RADIOLOGY J EXAMINATI ON KNEE 1/2 VIEWS GAUZE A6222 CCS CCS IMPREG 9 MEDICAL MEDICAL NOT H2O NL SALINE/HY DROGEL 16 SQ/< SPCLTY A6251 CCS CCS ABSORB 9 MEDICAL MEDICAL DRESS STERL 16 SQ/<NO ADHES BORDR TAPE A4452 CCS CCS [place] 9 MEDICAL MEDICAL F PER 18 SQU[place] L[place]EL III 51364 ESTRELLA DE LA ROSA SURG 9 MEDICAL MEDICAL PATHOLOGY SERV SERV FOUNDATIO FOUNDATIO GROSS&MIKAL ROSCOPIC EXAM BX SKIN 63336 [facility] 9 Y Y OUS&/MUCO [facility] US MEMBRANE 1 LESION BLOOD 21966 [facility] COUNT 9 [facility] AUTOMATED CREATINE 82470 [facility] KINASE 9 [facility] COLLECTIO 22167 [facility] N VENOUS 9 [facility] VENIPUNCT URE LIPID 89803 [facility] PANEL [address] [place] [address] [place] [address] [facility] THYROID 9 [facility] HORMONE TSH COMPREHEN 17996 [facility] SIVE [address] [facility] PELVIS 28557 UNIVERSIT UNIVERSIT 9 Y Y W/[facility] [place] [address] UNIVERSIT UNIVERSIT ABDOMEN 9 Y Y W/[facility] T MATERIAL LOCM Q9967 UNIVERSIT UNIVERSIT [phone] Y Y MG/ML [facility] IODINE CONCENTRA TION PER ML COLLECTIO 01243 [facility] N VENOUS 9 Y Y [facility] VENIPUNCT URE BLOOD 84154 UN[facility]ERSIT UNIVERSIT COUNT 9 Y Y [facility] AUTO&AUTO DIFRNTL WBC BASIC 15415 [facility] METABOLIC 9 Y Y [facility] CALCIUM TOTAL ALGINAT/O A6196 CCS CCS TH FIBER 9 MEDICAL MEDICAL GELL DRESS STERIL PAD 16 SQ/< SPCLTY A6251 CCS CCS ABSORB 9 MEDICAL MEDICAL DRESS STERL 16 SQ/<NO ADHES BORDR TAPE A4452 CCS CCS [place] 9 MEDICAL MEDICAL F PER 18 SQUARE INCHES CULTURE 22293 [facility] BACTERIAL 9 Y Y [facility] AEROBIC W/ID ISOLATES SCR G0145 PATHOLOGY PATHOLOGY CYTOPATH 9 & & CERV/VAG CYTOLOGY CYTOLOGY SCR LAB LAB AUTO&MNL RSCR PHYS SUSCEPTIB 43888 [facility] ILITY 9 [facility] STUDY ANTIMICRO BIAL DISK METHOD CULTURE 38940 [facility] TYPING 9 [facility] IMMUNOLOG IC OTH/THN IMMUNOFLU ORES CUL BACT 60687 [facility] XCPT 9 [facility] URINE BLOOD/STO OL AEROBIC ISOL RADEX 66108 [place] SHOULDER 9 [facility] MINIMUM 2 VIEWS THERAPEUT 12659 TOMER SMALLWOOD IC PX 1/> 8 [facility] J EACH 15 PSC MIN EXERCISES THERAPEUT 31514 ROMEO ROSA PX 1/> 8 [facility] J EACH 15 PSC MIN EXERCISES MANUAL 60508 TOMER SMALLWOOD, THERAPY 8 NAL REHAB MARCOS TQS 1/> ASSOC J REGIONS PSC EACH 15 MINUTES MANUAL 08909 TOMER SMALLWOOD, THERAPY 8 NAL REHAB MARCOS TQS 1/> ASSOC J REGIONS PSC EACH 15 MINUTES THERAPEUT 36023 TOMER SMALLWOOD IC PX 1/> 8 [facility] J EACH 15 PSC MIN EXERCISES THERAPEUT 44556 TOMER SMALLWOOD IC PX 1/> 8 [facility] ASSOC J EACH 15 PSC MIN EXERCISES MANUAL 04588 TOMER SMALLWOOD, THERAPY 8 NAL REHAB MARCOS TQS 1/> ASSOC J REGIONS PSC EACH 15 MINUTES MANUAL 56295 TOMER SMALLWOOD, THERAPY 8 NAL REHAB MARCOS TQS 1/> ASSOC J REGIONS PSC EACH 15 MINUTES THERAPEUT 66819 TOMER SMALLWOOD, IC PX 1/> 8 [facility] ASSOC J EACH 15 PSC MIN EXERCISES PHYSICAL 11565 TOMER SMALLWOOD, THERAPY 8 NAL REHAB MARCOS EVALUATIO ASSOC J N PSC THERAPEUT 49162 TOMER SMALLWOOD, IC PX 1/> 8 NAL REHAB MARCOS AREAS ASSOC J EACH 15 PSC MIN EXERCISES APPL 22569 TOMER SMALLWOOD, MODALITY 8 NAL REHAB MARCOS 1/> AREAS ASSOC J PSC ULTRASOUN D EA 15 MIN MRI 68863 [facility] SPINAL 8 [facility] LUMBAR W/O CONTRAST MATERIAL NDL EMG 1 49626 TERRY STEWART, XTR W/WO 8 [place] LERMA RELATED PARASPINA L AREAS NRV CNDJ 49283 TERRY STEWART, AMPLITUDE 8 [place] LERMA & LATENCY EACH NERVE SENSORY NRV CNDJ 06025 TERRY STEWART, AMPLT&LAT 8 [place] LERMA ENCY EA NRV MOTOR W/F-WAVE STD MRI 48038 EUNICE C KLARISSA, SPINAL 8 KLARISSA EUNICE CANAL LUMBAR W/O CONTRAST MATERIAL INJECTION J1030 FAMILY FAMILY 8 CARE CARE METHYLPRE ASSOCIATE ASSOCIATE DNISOLONE S S ACETATE 40 MG Encounters Encounter Start End Date Code Location Performer Type Date OFFICE 13232 [facility] 7 7 CULAR & T VISIT SLEEP 25 CONSU MINUTES [facility] 7 7 [facility] 7 7 [facility] T OFF[facility] 10249 [facility] 7 7 T VISIT ORTHOPAED 15 ICS PSC MINUTES [facility] [place] [facility] T OFFICE 86601 [facility] 7 7 CULAR & T VISIT SLEEP 15 CONSU [facility] [place] - 7 7 [facility] [place] - 7 7 [facility] T OFFICE 97396 [facility] 7 7 [facility] T NEW 30 CLINIC MINUTES PSC OFFICE 19915 [facility] 7 7 T VISIT ORTHOPAED 15 ICS PSC MINUTES OFFICE 98132 [facility] 7 7 REGIONAL T NEW 45 PHYSICIAN MINUTES [facility] YAMIL - 7 7 [facility] 90653 [facility] 7 7 CULAR & T VISIT SLEEP 15 CONSU [facility] [place] - 7 7 [facility] T OFFICE 23415 [facility] 7 7 T VISIT ORTHOPAED 10 ICS PSC MINUTES [facility] 69592 [facility] T VISIT HIGH/URGE NT [facility] [place] - 7 7 [facility] - 7 7 [facility] OFFICE 31746 YAMIL FUENTES [facility] 7 7 DIGESTIVE T NEW 45 CARE MINUTES CENTER OFFICE 47913 [facility] 7 7 CULAR & T VISIT SLEEP 15 CONSU [facility] ZOROASTRIAN - 7 7 [facility] T OFFICE 07575 [facility] 7 7 CULAR & T VISIT SLEEP 25 CONSU MINUTES [facility] 7 7 [facility] T EMERGENCY 40167 [facility] DEPT 7 7 SHADY VISIT EMERGENCY HIGH PHYS SEVERITY& THREAT FUNCJ EMERGENCY 07746 [facility] 7 7 [facility] T VISIT HIGH/URGE NT SEVERITY OFFICE 01150 [facility] 7 7 CULAR & T VISIT SLEEP 25 CONSU MINUTES [facility] - 7 7 [facility] INDIO - 7 7 [facility] 7 7 [facility] EMERGENCY 19500 [facility] 7 7 [facility] T VISIT HIGH/URGE NT SEVERITY [facility]ERGENCY 30667 [facility] SHADY VISIT EMERGENCY HIGH PHYS SEVERITY& THREAT FUNCJ OFFICE 40257 [facility] 7 7 AND T VISIT MAGED, 25 PSC MINUTES OFFICE 61378 [facility]ART[facility] 7 7 T VISIT ORTHOPAED 10 ICS PSC MINUTES EMERGENCY 03556 [facility] 6 6 [facility] T VISIT LIMITED/M INOR PROB EMERGENCY 24563 JUSTIN IQBALH 6 6 PHYSICIAN [facility] S, PLL T VISIT HIGH/URGE NT SEVERITY [facility]OSPITAL [facility] - 6 6 [facility] OFF[facility] 54825 ALLERGY ZIEGLER MAR [facility] 6 6 PARTNERS T VISIT OF [place] 40 CO MINUTES OFFICE 78239 [facility]ARTI [facility] 6 6 GRE T VISIT ORTHOPAED 15 ICS PSC MINUTES [facility]OSPITAL [facility] - 6 6 [facility] OUTPATIEN [facility] OFFICE 70902 CHASTITY KIDD OUTPATIEN 6 6 GRE T VISIT ORTHOPAED 15 ICS PSC MINUTES OFFICE 45954 ALLERGY ZIEGLER MAR OUTPATIEN 6 6 PARTNERS T VISIT OF [place] 25 CO MINUTES HOSPITAL [facility] - 6 6 [facility] - 6 6 [facility] EMERGENC[facility] 92163 JUSTIN RUELAS 6 6 PHYSICIAN KADY GONZALEZC T VISIT MODERATE SEVERITY HOSPITAL INDIO - 6 6 [facility] EMERGENCY 60360 INDIO 6 6 [facility] T VISIT LIMITED/M INOR [facility] INDIO - 6 6 [facility] [place] ISELAON - 6 6 [facility] T OFFICE 30693 CHASTITY LUIS OUTPATIEN 6 6 SOPHIE T VISIT ORTHOPAED 15 ICS PSC MINUTES HOSPITAL [facility] - 6 6 [facility] EMERGENCY 37778 JUSTIN RICE 6 6 PHYSICIAN Tanisha BRIONES S PLLC T VISIT MODERATE SEVERITY OFFICE 64195 TRIPLETT LUIS OUTPATIEN 6 6 [place] T VISIT ORTHOPAED 15 ICS PLC MINUTES OFFICE 47418 INDIO SILVER [facility] OUTPATIEN 6 6 MEMORIAL T VISIT HOSPITAL 15 MINUTES OFFICE 71047 ALLERGY ZIEGLER MAR OUTPATIEN 6 6 PARTNERS T VISIT OF [place] 25 CO MINUTES HOSPITAL INDIO - 5 5 [facility] OFFICE 80124 ALLERGY ZIEGLER MAR OUTPATIEN 5 5 PARTNERS T VISIT OF HILLI[place] 25 CO MINUTES OFFICE 80130 MIAN VICTORIA OUTPATIEN 5 5 VISION ANG T VISIT CENTER 10 MINUTES HOSPITAL GEORGEW - 5 5 N OUTPATIEN COMMUNTIY T [facility]PLAKE [facility] HOSPITAL GEORGEW - 5 5 N OUTPATIEN COMMUNTIY T HOSPITA OFFICE 56273 [facility] OUTPATIEN 5 5 [place] T VISIT ORTHOPAED 25 ICS PLC MINUTES OFFICE 12727 [facility] OUTPATIEN 5 5 [place] T VISIT ORTHOPAED 15 ICS PLC MINUTES OFFICE 21318 [facility]OCK MAGED OUTPATIEN 5 5 AND JANE T VISIT MAGED, 15 PSC MINUTES OFFICE 73118 ROMEROARIANNELor LAFLEUR OUTPATIEN 5 5 N T VISIT NEUROLOGY 15 MINUTES OFFICE 82186 ALLERGY ZIEGLER MAR OUTPATIEN 5 5 PARTNERS T VISIT OF [place]ILLI[place] 25 CO MINUTES OFFICE 73026 ALLERGY ZIEGLER MAR OUTPATIEN 5 5 PARTNERS T NEW 45 OF HILLIARD MINUTES CO OFFICE 11146 [facility] OUTPATIEN 5 5 [place] S[place] T NEW 30 ORTHOPAED MINUTES ICS PLC OFFICE 29260 DEON HOROWITZ CIARRA OUTPATIEN 5 5 N T VISIT NEUROLOGY 15 MINUTES HOSPITAL [facility] - 5 5 [facility] OUTPATIEN INC T EMERGENCY 11237 INDIO 5 5 [facility] DEPARTMEN INC T VISIT MODERATE SEVERITY [facility]OSPITAL INDIO - 5 5 [facility] OUTPATIEN INC T HOSPITAL DEON - 5 5 N OUTPATIEN COMMUNTIY T [facility]PLAKE [facility] HOSPITAL DEON - 5 5 N OUTPATIEN COMMUNTIY T HOSPITA OFFICE 28920 [facility] CI[facility]RA OUTPATI[facility] 5 5 N T VISIT NEUROLOGY 15 MINUTES HOSPITAL INDIO - 5 5 [facility]PATIEN INC [facility] 5 5 N OUTPATIEN COMMUNTIY T HOSPITA OFFICE 51365 DEON HOROWITZ CIARRA OUTPATIEN 5 5 N T VISIT NEUROLOGY 25 MINUTES HOSPITAL GEORGEARIANNEW - 4 4 N OUTPATIEN COMMUNITY T HOSPITA OFFICE 56086 SAMMI ADAN OUTPATIEN 4 4 [employer], Eved T NEW 30 MINUTES OFFICE 39162 GILLIAN FRENCH OUTPATIEN 4 4 GRE GRE T NEW 45 MINUTES OFFICE 72874 [facility] OUTPATIEN 4 4 PHYSICIAN JAM T VISIT S GROUP 15 MINUTES OFFICE 79891 MAGED MAGED OUTPATIEN 4 4 JANE JANE T VISIT 15 MINUTES HOSPITAL [facility] - 4 4 [facility] OUTPATIEN INC [facility]PITAL [facility] - 4 4 [facility] OUTPATIEN INC T OFFICE 23647 MAGED MAGED OUTPATIEN 4 4 JANE JANE T VISIT 15 MINUTES EMERGENCY 25862 AMBER ROLLINS 4 4 SHADY [facility] EMERGENCY T VISIT SERVI MODERATE SEVERITY EMERGENCY 06008 AMERICUSVANESSA 4 4 N [facility] T VISIT HOSPITA LOW/MODER SEVERITY HOSPITAL DEON - 4 4 N OUTPATIEN COMMUNITY T HOSPITA EMERGENCY 35721 INDIO 4 4 [facility] DEPARTMEN INC T VISIT LOW/MODER SEVERITY [facility]OSPITAL [facility] - 4 4 [facility] OUTPATIEN INC T EMERGENCY 75086 AMBER LOUISE 4 4 SHADY DEPARTMEN EMERGENCY T VISIT PHYS HIGH/URGE NT SEVERITY OFFICE 27686 [facility] OUTPATIEN 4 4 PHYSICIAN JAM T VISIT S GROUP 15 MINUTES OFFICE 14017 ANA GERARD OUTPATIEN 4 4 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PITAL INDIO - 4 4 [facility] OUTPATIEN INC T OFFICE 01874 [facility] PETJENY OUTPATIEN 4 4 PHYSICIAN JAM T VISIT S GROUP 15 MINUTES HOSPITAL INDIO - 4 4 [facility] OUTPATIEN INC T EMERGENCY 17329 INDIO 4 4 [facility] DEPARTMEN INC T VISIT LOW/MODER SEVERITY EMERGENCY 98210 GILLIAN RUELAS 4 4 EMERGENCY [facility] T VISIT MODERATE SEVERITY HOSPITAL [facility] - 3 3 [facility] OUTPATIEN [facility] T OFFICE 23526 CHARLES PERERA OUTPATIEN 3 3 DILMA CASILLAS T VISIT 25 MINUTES OFFICE 11167 [facility] PETSHELDON OUTPATIEN 3 3 PHYSICIAN JAM T VISIT S GROUP 15 MINUTES OFFICE 76696 MIAN ORTIZ OUTPATIEN 3 3 MATT T VISIT CHIROPRAC 15 TIC CENTE MINUTES OFFICE 62251 DEON NEAL OUTPATIEN 3 3 N T VISIT NEUROLOGY 15 MINUTES HOSPITAL [place] - 3 3 N OUTPATIEN [facility] T HOSPITA OFFICE 12440 EAR, NOSE SHASHY OUTPATIEN 3 3 AND HARESH T VISIT THROAT 25 SPECIAL [facility] HOSPITAL ENW - 3 3 N OUTPATIEN COMMUNITY T HOSPITA OFFICE 72979 DEON NEAL OUTPATIEN 3 3 N T NEW 45 NEUROLOGY MINUTES OFFICE 10169 EAR, NOSE SHASHY OUTPATIEN 3 3 AND HARESH T VISIT THROAT 25 SPECIAL [facility] ENW - 3 3 N OUTPATIEN COMMUNITY T HOSPITA OFFICE 13819 EAR, NOSE SHASHY OUTPATIEN 3 3 AND HARESH T NEW 45 THROAT MINUTES SPECIAL OFFICE 63639 JACKELYN HAYDEN OUTPATIEN 3 3 JAM JAM T NEW 45 MINUTES OFFICE 76178 CHARLES BARNETTPATIKE 3 3 DILMA CASILLAS T VISIT 15 MINUTES OFFICE 72787 CHARLES SPENCE 3 3 DILMA CASILLAS T VISIT 25 MINUTES HOSPITAL [facility] - 3 3 [facility] T EMERGENCY 88415 INDIO 3 3 [facility] T VISIT LIMITED/M INOR PROB EMERGENCY 17777 GILLIAN SELLERS 3 3 EMERGENCY DEPARTMEN SERVICES T VISIT HIGH/URGE NT SEVERITY EMERGENCY 85148 GILLIAN LOZOYA 3 3 EMERGENCY DEPARTMEN SERVICES T VISIT HIGH/URGE NT SEVERITY OFFICE 69808 CHARLES PERERA OUTPATIEN 3 3 DILMA CASILLAS T VISIT 15 MINUTES EMERGENCY 61420 INDIO 2 2 [facility] T VISIT LOW/MODER SEVERITY EMERGENCY 23247 GILLIAN LOUISE 2 2 EMERGENCY DEPARTMEN SERVICES T VISIT HIGH/URGE NT SEVERITY HOSPITAL [place] - 2 2 [facility] OUTPATIEN [facility] T HOSPITAL INDIO - 2 2 [facility] T HOSPITAL INDIO - 2 2 [facility] OUTPATIEN [facility] T OFFICE 52765 [facility]OCK GUTIÉRREZ OUTPATIEN 2 2 JAM JAM T VISIT 15 MINUTES OFFICE 88616 [facility] GUTIÉRREZ OUTPATIEN 2 2 JAM JAM T VISIT 15 MINUTES EMERGENCY 43479 ANIYAON 2 2 [facility] T VISIT LOW/MODER SEVERITY EMERGENCY 74210 GILLIAN SOKACarlotta SELLERS DEPT 2 2 EMERGENCY VISIT SERVICES HIGH SEVERITY& THREAT [facility] ISELA[facility] - 2 2 [facility] INDIO - 2 2 [facility] EMERGENCY 47366 INDIO 2 2 [facility] T VISIT MODERATE SEVERITY EMERGENCY 46894 GILLIAN GARY 2 2 EMERGENCY III [facility] DE[facility] SERVICES T VISIT HIGH/URGE NT SEVERITY HOSPITAL [facility] - 2 2 [facility] T OFFICE 42817 [facility] 2 2 ALFONSO HAMILTON T VISIT 15 MINUTES EMERGENCY 25035 INDIO 2 2 [facility] T VISIT LIMITED/M INOR PROB [facility] INDIO - 2 2 [facility] [address] T OFFICE 45440 ANAYELI TREVIZO OUTPATI 2 2 T NEW 30 MINUTES OFFICE 91513 ANAYELI RTEVIZO [place] [address] 2 T VISIT 15 MINUTES OFFICE [address] T NEW 20 MINUTES [facility]OSPITAL [address] T OFFICE [address] T VISIT 10 MINUTES OFFICE 42059 [facility] OUTPATIEN 2 2 [place] T VISIT ORTHOPAED 15 ICS PLC MINUTES OFFICE 60940 MAGED MAGED OUTPATIEN 1 1 JANE LARA T VISIT 25 MINUTES HOSPITAL [facility] - 1 1 [facility] T OFFICE 04853 CENTRAL LUIS OUTPATIEN 1 1 [place] T NEW 30 ORTHOPAED MINUTES ICS [facility] [place] [facility] 1 1 [facility] [place] - 1 1 [facility] EMERGENCY 01926 GILLIAN RUELAS 1 1 EMERGENCY [facility] DEPARTMEN SERVICES T VISIT HIGH/URGE NT SEVERITY [facility]OSPITAL [place] - 1 1 [facility] 83797 INDIO 1 1 [facility] T VISIT LOW/MODER SEVERITY [facility]OSPITAL [facility] - 1 1 [facility] INDIO - 1 1 [facility] EMERGENCY 53636 GILLIAN LARA DEPT 1 1 EMERGENCY VISIT SERVICES HIGH SEVERITY& THREAT FUN EMERGENCY 33062 INDIO 1 1 [facility] T VISIT LOW/MODER SEVERITY [facility] 47003 GILLIAN GARY 0 0 EMERGENCY [facility] SERVICES T VISIT HIGH/URGE NT SEVERITY [facility]OSPITAL [place] - 0 0 [facility] EMERGENCY 41363 INDIO 0 0 [facility] T VISIT LOW/MODER SEVERITY [facility] 28094 GILLIAN ESPOSITO 0 0 EMERGENCY [facility] DEPARTMEN SERVICES T VISIT HIGH/URGE NT SEVERITY [facility] 59972 [facility] 0 0 N [facility] T VISIT [facility] MODERATE SEVERITY OFFICE 85783 [facility] 0 0 MEDICAL CITLALLI Santos T VISIT SERV [facility] - [facility] EM[facility] 07430 INDIO 0 0 [facility] DEPARTMEN INC T VISIT MODERATE SEVERITY EMERGENCY 36947 GILLIAN RUELAS, 0 0 [facility] DEPARTMEN SERVICES T VISIT HIGH/URGE ASSOCIATE NT S SEVERITY [facility] [place] - 0 0 [facility] EMERGENCY 75257 INDIO 0 0 [facility] DEPARTMEN INC T VISIT HIGH/URGE NT SEVERITY [facility]OSPITAL [place] - 0 0 [facility] 51350 GILLIAN SIMMONS, DEPT 0 0 EMERGENCY [place] VISIT SERVICES HIGH SEVERITY& ASSOCIATE THREAT S [facility] [place] - 0 0 [facility] T OFFICE 99175 [place] BANEGAS 9 9 MEDICAL ODELL T T VISIT SERV 15 FOUNDATIO MINUTES OFFICE 92720 [place] [facility] B[facility] 9 9 MEDICAL ODELL T T VISIT SERV 15 FOUNDATIO MINUTES OFFICE 11072 [place] [facility] BANEG[facility] 9 9 MEDICAL ODELL T T NEW 30 SERV MINUTES [facility] INDIO - 9 9 [facility] [place] [facility] 9 9 [facility] [id number] [facility] 9 9 Y T VISIT [facility] 25 [facility] UN[facility] - 9 9 [facility] 9 9 [facility] T OFFICE 07708 [facility] 9 9 Y T VISIT HOSPITAL 15 MINUTES OFFICE 18444 [facility] 9 9 [place] L T VISIT 10 MINUTES [facility]OS[facility] - [address] [facility] T OFFICE 75780 [facility] 9 9 [place] T [facility]ISIT 15 MINUTES [facility]OSP[facility] - [address] [facility] T OFFICE 09493 [facility] 9 9 Y T VISIT [facility]OSPITAL 15 MINUTES [facility] T OFFICE 97612 [facility] 9 9 [place] T VISIT 15 MINUTES OFFICE 04839 [facility] 9 9 Y T VISIT HOSPITAL 25 MINUTES [facility]OSPITAL [facility] - [address] [facility] T HOSPITAL UNIVERS[facility] 9 [address] [facility] T OFFICE 10395 [facility] 9 9 [place] L [place] L T NEW 45 MINUTES OFFICE 71319 [facility] 9 9 Y T VISIT HOSPITAL 40 MINUTES OFFICE 86047 [facility]UN[facility], CONSULTAT 9 9 PAIN SOCORRO R ION MEDICIINE NEW/ESTAB PSC PATIENT 60 MIN [facility] T OFFICE 49614 GLEN, GLEN, OUTPATIEN 8 8 DEVONTE DEVONTE T VISIT 10 MINUTES [facility] T OFFICE [id number] GLEN, GLEN, CONSULTAT 8 8 DEVONTE DEVONTE ION NEW/ESTAB PATIENT 40 MIN [facility] - 8 8 [facility] T EMERGENCY [id number] [facility] 8 8 [facility] T VISIT LIMITED/M INOR PROB OFFICE 62019 ROHINILINNROHINILINN, OUTPATIEN 8 8 LESLEY Abdul T NEW 45 MINUTES OFFICE 44098 FAMILY LANETTEBERRY, OUTPATIEN 8 8 CARE MARIELY T T VISIT ASSOCIATE 15 S MINUTES OFFICE 89087 FAMILY LATRICIA, OUTPATIEN 8 8 CARE R ELIZABETH T VISIT ASSOCIATE 15 S MINUTES OFFICE 39202 FAMILY [place] LEBLANC OUTPATIEN 8 8 CARE G T VISIT ASSOCIATE 15 S MINUTES OFFICE 73315 [facility] FAMILY OUTPATIEN 8 8 CARE CARE T VISIT ASSOCIATE ASSOCIATE 15 S S MINUTES OFFICE 63922 FAMILY FAMILY OUTPATIEN 8 8 CARE CARE T VISIT ASSOCIATE ASSOCIATE 25 S S MINUTES OFFICE 44799 [facility] OUTPATIEN 8 8 CARE CARE T VISIT ASSOCIATE ASSOCIATE 15 S S MINUTES
--- OUTSIDE RECORDS SUMMARY | 2017-07-29 20:19 | External Medical Summary Rpt | CCD ---
Author Author , KELSY Organization KELSY Address Unknown Phone [email or web address] Care Team Providers Care Investigations Director Name Role Phone [employer] Unavailable Unavailable INC, [employer] Unavailable Unavailable INC, [employer] [facility] Unavailable Unavailable [place], [facility] [place] MAGED, MAGED Unavailable Unavailable MAGED JANE, MAGED Unavailable Unavailable JANE MAGED JANE, MAGED Unavailable Unavailable JANE DIANA MATT, Unavailable Unavailable Kenya ARNETT, Unavailable Unavailable Kenya ORTIZ ARMS DON, ARMS DON Unavailable Unavailable [facility] Unavailable Unavailable [facility] Unavailable Unavailable MEDICAL GROUP, [facility] BEINEKE LILLIE, BEINEKE Unavailable Unavailable LILLIE SILVER TER, SILVER TER Unavailable Unavailable ADDISON, ALACIA L, Unavailable Unavailable ADDISON, ALACIA L [facility] Unavailable Unavailable [facility]ATORIES, [facility] Unavailable Unavailable LAB[facility]ATORIES, [facility] Unavailable Unavailable [facility], [facility] Unavailable Unavailable HOSPITAL, [facility] Unavailable Unavailable GUADALUPE FRA, GUADALUPE FRA Unavailable Unavailable GALICIA CAR, GALICIA Unavailable Unavailable CAR [facility] & Unavailable Unavailable SLEEP CONSU, [facility] SLEEP CONSU [facility], [facility] Unavailable Unavailable [facility], Unavailable [facility]available [facility] Unavailable [facility] CHEST[facility], [facility] Unavailable Unavailable [facility] & Unavailable Unavailable DUBILIER, [facility]available [facility] Unavailable [facility] Unavailable Unavailable PHYSICIAN PRA, [facility], Unavailable Unavailable [facility] RENDON T, RENDON T Unavailable Unavailable AMIN, AMIN Unavailable Unavailable AMIN GRAEME, AMIN GRAEME Unavailable Unavailable Kenya LEBLANC, BENJI, Unavailable Unavailable Kenya CYR, KLARISSA Unavailable Unavailable KLARISSA KASSANDRA, Unavailable Unavailable KLARISSA KASSANDRA EUNICE CYR, Unavailable Unavailable KLARISSA, EUNICE [place] [facility] Unavailable Unavailable [facility], [facility] MARTI, MARTI Unavailable Unavailable MARTI GRE, MARTI Unavailable Unavailable [facility] Unavailable Unavailable ASSOCIAT, [facility] DAUKAS ROSALES, DAUKAS Unavailable [...] MIKAL ELVIE RUELAS, Unavailable Unavailable ELVIE RUELAS [facility] Unavailable Unavailable [facility]PITA, [facility] Unavailable Unavailable HOSPITA, [facility], Unavailable Unavailable [facility] CHARLES PERERA MD, Unavailable Unavailable ODELL PEREZ MD, Unavailable Unavailable ODELL BANEGAS GRAY ROB Unavailable Unavailable GREGONIParul GREGONIParul Unavailable Unavailable NIKKI RHO, NIKKI Unavailable Unavailable RHO NIKKI, RUBÉN G, Unavailable Unavailable NIKKI, RUBÉN G CEVALLOS, CEVALLOS Unavailable Unavailable HARPEL SONJA, HARPEL Unavailable Unavailable SONJA GARRETT, GARRETT Unavailable Unavailable LESLEY HERNÁNDEZ, Unavailable Unavailable LESLEY HERNÁNDEZ [facility] Unavailable Unavailable INC, [facility] Unavailable Unavailable HOSPITAL, [facility] Unavailable Unavailable HOSPITAL P, [facility] P PATTERSON MANNY, PATTERSON MANNY Unavailable Unavailable [facility], Unavailable Unavailable [facility] STACI III, SMALL Unavailable Unavailable III FRACISCO, Unavailable Unavailable FRACISCO LEE, ROSA BREVIG MISSION JR, BREVIG MISSION JR Unavailable Unavailable RYNE III JAYESH, Unavailable Unavailable RYNE III ADRIANA RONDON, Unavailable Unavailable ADRIANA MICHELE [facility] Unavailable Unavailable GROUP PS, [facility] Unavailable Unavailable [facility], [facility], Unavailable Unavailable [facility] KOSTELIC, LAURIE K, Unavailable Unavailable KOSTELIC, LAURIE K [facility] Un[facility] Unavailable Unavailable HOLDINGS, [facility], Unavailable Unavailable [facility] JAIR JR, JAIR JR Unavailable Unavailable JAIR JR DWI, JAIR Unavailable Unavailable JR DWI JAIR, YSABEL E, Unavailable Unavailable JAIR, YSABEL E [facility] SPOT BILLING CLERK, Unavailable Unavailable [facility] [place] SPOT BILLING CLERK, [facility] LOCKSTADT, LOCKSTADT Unavailable Unavailable DUONG ELIU, DUONG Unavailable Unavailable ELIU CITLALLI MCKENZIE, JONAH, Unavailable Unavailable THOMAS ROLAND Unavailable Unavailable [facility], Unavailable Unavailable GILLIAN GRE [facility], Unavailable Unavailable [facility] Unavailable Unavailable SERVICES, [facility] RIA WINSLOW, RIA Unavailable Unavailable [place] HAYDEN JAM, Unavailable Unavailable HAYDENALICIA HAMILTON, Unavailable Unavailable HAYDENALICIA LOPEZ, RICHARD Unavailable Unavailable JOHN MULBERRY MARIELY T, Unavailable Unavailable MULBERRY MARIELY T [facility] Unavailable Unavailable [facility], [facility] Unavailable Unavailable [facility], [facility] Maryellen ROME, Unavailable Unavailable Maryellen [...] Unavailable SOKAN BAB, SOKAN BAB Unavailable Unavailable [facility], Unavailable Unavailable [facility] L[facility]IE [facility] Unavailable Unavailable EMERGENCY PHYS, [facility]GENC[facility]YS [facility] Unavailable Unavailable EMERGENCY SERVI, [facility]GENCY SERV[facility], Unavailable Unavailable [facility] ARCHER KAHLIL, Unavailable Unavailable ARCHER KAHLIL PARMJIT ELIU, PARMJIT Unavailable Unavailable [facility], Unavailable Unavailable [facility] WAESPE, WAESPE Unavailable Unavailable [...] 06-27-2017 [facility] LAR & SLEEP UNSPECIFIED CONSU [id number] ENCOUNTER 06-27-2017 [facility] FOR LAR & SLEEP PREPROCEDUR CONSU AL CARIOVASCUL AR EXAM J301 ALLERGIC 06-22-2017 [facility] RHINITIS [facility] OF DUE TO [place] POLLEN J3081 ALLERG 06-22-2017 [facility] RHINITIS [facility] OF D/T ANIMAL [place] CAT DOG HAIR & DANDER J3089 OTHER 06-22-2017 [facility]GIC [facility] RHINITIS [place] E785 HYPERLIPIDE 06-17-2017 [facility] UNSPECIFIED HOSPITAL N390 URINARY 06-17-2017 [facility] INFECTION [facility]OSPITAL SITE NOT SPECIFIED R5383 OTHER 06-17-2017 [facility] C00433 ENCOUNTER 06-17-2017 [facility] OTHER [facility] AL EXAMINATION R0602 SHORTNESS 06-03-2017 [facility] OF BREATH RADIOLOGY R072 PRECORDIAL 06-03-2017 [facility] [place] PAIN RADIOLOG[facility] M1711 UNILATERAL 06-02-2017 [facility] OSTEOARTHRI S PSC TIS RIGHT KNEE E875 HYPERKALEMI 05-31-2017 [facility] A LAR & SLEEP CONSU A048 OTHER 05-06-2017 [facility] SPECIFIED [facility]ITY BACTERIAL [facility]OSPITAL INTESTINAL INFECTIONS R05 COUGH 05-03-2017 [facility] M32556 MIGRAINE 04-15-2017 NEW UNS NOT [place] INTRACT [...] & CAUSE OF DZ DUBILIER CLASSIFIED ELSW R74604 UNSPECIFIED 02-02-2017 [facility] ED K317 POLYP OF 02-02-2017 [facility] ST[facility] CLAIRE & DUODENUM DUBILIER K3189 OTHER 02-02-2017 [facility] DISEASES OF CLAIRE & STOMACH DUBILIER AND DUODENUM R079 CHEST PAIN 02-02-2017 [facility] UNSPECIFIED [facility] R1310 DYSPHAGIA 02-02-2017 [facility] P69402 OTHER LONG 02-02-2017 [facility] TERM [facility]ITY CURRENT HOSPITAL DRUG THERAPY G479 SLEEP 01-25-2017 [facility] DISORDER [facility] UNSPECIFIED HOSPITAL R0683 SNORING 01-25-2017 [facility] J209 ACUTE 01-09-2017 [facility] BRONCHITIS N EMERGENCY UNSPECIFIED PHYS R509 FEVER 01-09-2017 [facility] UNSPECIFIED RADIOLOGY O75864 PERSONAL 01-09-2017 [facility] HISTORY OF [facility] CALCULI Z886 ALLERGY 01-09-2017 [facility] STATUS TO [facility] ANALGESIC [facility]PITAL AGENT STATUS R1013 EPIGASTRIC 12-31-2016 [facility] R21737 UNSPECIFIED 12-28-2016 [facility]ARDI[facility]ASCU ASTHMA LAR & SLEEP [...] AND OF VULVA MAGED, AND VAGINA PSC N71654 CHRONIC 11-02-2016 [facility] MIGRAINE MAGED, W/O AURA PSC INTRACT W/O STAT MIGR J0190 ACUTE 11-02-2016 [facility] AND SINUSITIS MAGED, UNSPECIFIED PSC Z6832 BODY MASS 11-02-2016 [facility] AND INDEX BMI MAGED, 32.0-32.9 PSC ADULT N69612 PRESENCE OF 10-05-2016 [facility] 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 H14960 PRESENCE OF 10-05-2016 [facility] LEFT ORTHOPAEDIC ARTIFICIAL S PSC KNEE JOINT J680 BRONCHITIS 09-28-2016 [facility] & PNEUMONIT PHYSICIANS, D/T CHEM [facility] GASE FUME VAPOR B5559WH TOXIC 09-28-2016 [facility] EFFECT [facility] P ACCIDENTAL INIT ENC K41770 UNS PLACE 09-28-2016 [facility] P PLACE OF OCCUR EXT G4489 OTHER 09-08-2016 [facility] HEADACHE PART[facility]ERS OF SYNDROME [place] J0180 OTHER ACUTE 09-08-2016 [facility] SINUSITIS [facility] [place] J4530 MILD 09-08-2016 [facility] PERSISTENT PARTNERS OF ASTHMA [place] UNCOMPLICAT ED I10267 SPONDYLOSIS 08-05-2016 [place] W/O MEDICAL MYELOPATH/R IMAGING ASS ADICULPATHY LS RGN M5126 OTH 08-05-2016 [place] INTERVERTEB MEDICAL RAL DISC IMAGING ASS DISPLACEMEN T LUMBAR RGN M1712 UNILATERAL 07-22-2016 [facility] OSTEOARTHRI S PSC TIS LEFT KNEE H1013 ACUTE 07-16-2016 [place] [facility] TIS BILATERAL Z1231 ENCOUNTER 05-12-2016 [place] SCREENING MEDICAL MAMMO MALIG IMAGING ASS NEOPLASM BREAST N951 MENOPAUSAL 04-29-2016 [facility] AND FEMALE PHYSICIANS CLIMACTERIC GROUP STATES N60854 ENCOUNTER 04-29-2016 [facility] 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 EXAM PHYSICIANS GENERAL RTN GROUP W/O ABNORMAL FIND Z1212 ENCOUNTER 04-29-2016 [facility] SCREENING PHYSICIANS MALIGNANT GROUP NEOPLASM RECTUM Z7253 HIGH RISK 04-29-2016 [facility] BISEXUAL PHYSICIANS BEHAVIOR GROUP G8918 OTHER ACUTE 04-24-2016 [facility] PHYSICIANS, POSTPROCEDU PLLC RAL PAIN P62442 PAIN IN 04-24-2016 [facility] LEFT KNEE MEM HOS[facility] INC M179 OSTEOARTHRI 04-14-2016 [facility] [place] T[facility] OF KNEE ANESTHESIA ASSOCIAT UNSPECIFIED Z0001 ENCOUNTER 04-06-2016 [facility] MEDICAL INCORPORAT EXAM W/ABNORMAL FIND M1611 UNILATERAL 03-30-2016 [facility] OSTEOARTHRI [facility] TIS RIGHT HIP H6000 ABSCESS OF 02-25-2016 [facility] EXTERNAL PHYSICIANS, EAR PLLC UNSPECIFIED EAR H6003 ABSCESS OF 02-25-2016 [facility] EXTERNAL [facility] EAR INC BILATERAL B45930E OTH TEAR 12-17-2015 [facility] MED ORTHOPAEDIC MENISCUS S PLC CURR INJ LT KNEE SBSQT ENC J029 ACUTE 12-02-2015 [facility] UNSPECIFIED J4520 MILD 11-28-2015 [facility] INTERMITTEN PARTNERS OF T ASTHMA [place] UNCOMPLICAT ED Z8739 PERSONAL HX 09-22-2015 [facility] MUSCULOSKEL INC SYS&CONNECT V TISS R47443 CHONDROMALA 08-19-2015 [facility] ANDREA LEFT COMMUNTIY KNEE HOSPITA F48815F OTH TEAR 08-19-2015 [place] MED ANESTHESIA MENISCUS GROUP PS CURR INJ LT KNEE INIT ENC K51781 MIGRAINE 07-04-2015 [facility] W/O AURA NEUROLOGY INTRACT W/O STAT MIGRAINOSUS 1370 ALLERGIC 07-02-2015 [facility] RHINITIS PARTNERS OF DUE TO [place] POLLEN 4772 ALLERGIC 07-02-2015 [facility] RHINITIS PARTNERS OF [facility] TO [place] ANIMAL HAIR AND DANDER 4778 ALLERGIC 07-02-2015 [facility] RHINITIS PARTNERS OF DUE TO [place] OTHER ALLERGEN 48486 ASTHMA, 06-13-2015 [facility] UNSPECIFIED PARTNERS OF , [place] UNSPECIFIED STATUS 7840 HEADACHE 06-13-2015 [facility] [place] 4720 CHRONIC 05-23-2015 [place] [address] OSTEOARTHRO 05-21-2015 [facility] [place] SIS UNSPEC ORTHOPAEDIC WHETHER S PLC GEN/LOC LOWER LEG 90468 CHRONIC 04-03-2015 [facility] MIGRAINE NEUROLOGY W/O AURA W/O INTRACTABLE W/O SM V7612 OTHER 03-31-2015 [place] SCREENING MEDICAL MAMMOGRAM IMAGING ASS 6272 SYMPTOMATIC [...] AND ABSCESS MEM HOSP OF FACE INC 11019 NEW DAILY 03-06-2015 [facility] PERSISTENT COMMUNTIY HEADACHE HOSPITA 7920 NONSPECIFIC 03-06-2015 [facility] ABNORMAL CLAIRE & FINDING IN [facility] 35924 PAIN IN 03-04-2015 [facility] JOINT, COMMUNTIY LOWER LEG HOSPITA V571 OTHER 02-07-2015 [facility] PHYSICAL MEM HOSP THERAPY INC 53081 MIGRAINE 02-04-2015 [facility] [place] UNSP W/O RADIOLOGY INTRACT W/O STATUS MIGRAINOSUS 7231 CERVICALGIA 01-29-2015 [facility] 82397 PRIMARY 10-01-2014 [facility] LOCALIZED TECHNOLOGIE OSTEOARTHRO S INC SIS LOWER LEG 7295 PAIN IN 10-01-2014 [facility] SOFT TECHNOLOGIE TISSUES OF S INC LIMB 55072 PAIN IN 09-10-2014 [facility] [place] JOINT RADIOLOGY [place] REGION AND THIGH 86527 DISORDER OF 09-10-2014 e-Zassi BONE AND MSO, Hedgeable CARTILAGE UNSPECIFIED 58228 GENU VARUM 09-10-2014 TencentO, Hedgeable V5869 LONG-TERM 09-10-2014 [facility] (CURRENT) COMMUNITY USE OF HOSPITA OTHER MEDICATIONS 03949 UNSPECIFIED 08-17-2014 [facility] SUBJECTIVE GRE VISUAL DISTURBANCE 68797 OTHER 08-17-2014 [facility] VISUAL GRE DISTORTIONS AND ENTOPTIC PHENOMENA 51211 UNSPECIFIED 08-17-2014 [place] [address] SCLERAL 08-17-2014 [facility] ECTASIA GRE 28237 CHONDROMALA 08-01-2014 [facility] ANDREA PHYSICIANS GROUP V0481 NEED 07-16-2014 [facility] PROPHYLACTI PHARMACY C #591 VACCINATION &INOCULATIO N FLU 14721 RESTLESS 05-16-2014 MAG[facility] JANE LEGS SYNDROME 01201 INSOMNIA 05-16-2014 [facility] UNSPECIFIED 7172 DERANGEMENT 04-08-2014 [facility] OF MEM HOSP POSTERIOR INC HORN OF MEDIAL MENISCUS 22820 DERANGEMENT 04-08-2014 [facility] OF MEM HOSP ANTERIOR INC HORN OF LATERAL MENISCUS 19087 PLICA 04-08-2014 [facility] SYNDROME PHYSICIANS GROUP 8360 TEAR MEDIAL 04-08-2014 [facility] CARTILAGE PHYSICIANS OR MENISCUS GROUP KNEE CURRENT 8361 TEAR 04-08-2014 [facility] LATERAL MEM HOSP CARTILAGE INC OR MENISCUS KNEE CURRENT 2724 OTHER AND 04-03-2014 [facility] UNSPECIFIED [facility] P HYPERLIPIDE STEPH 6829 CELLULITIS 03-28-2014 MAGED JANE AND ABSCESS OF UNSPECIFIED SITE 31830 ABDOMINAL 03-28-2014 [facility] PAIN OTHER SPECIFIED SITE 6869 UNSPEC 03-05-2014 [facility] LOCAL COMMUNITY INFECTION HOSPITA SKIN&SUBCUT ANEOUS TISSUE 7048 OTHER 03-05-2014 [facility] SPECIFIED COMMUNITY DISEASE OF HOSPITA HAIR&HAIR FOLLICLES 77284 TOXIC 03-05-2014 [facility] EFFECT OF COMMUNITY OTHER HOSPITA SUBSTANCES 9953 ALLERGY 03-05-2014 [facility] UNSPECIFIED N EMERGENCY NOT SERVI ELSEWHERE CLASSIFIED 96805 DEGEN 03-04-2014 [place] LUMBAR/LUMB MEDICAL OSACRAL IMAGING ASS INTERVERTEB RAL DISC 7242 LUMBAGO 03-04-2014 [facility] 8472 LUMBAR 03-04-2014 [facility] SPRAIN AND N EMERGENCY STRAIN PHYS 92034 CONTUSION 03-04-2014 [facility] OF KNEE N EMERGENCY PHYS E8888 OTHER FALL 03-04-2014 [facility] N EMERGENCY PHYS 00992 SYNOVIAL 02-22-2014 [facility] CYST OF PHYSICIANS POPLITEAL GROUP SPACE 82991 OTHER 01-25-2014 [place] MALAISE AND SPOT BILLING CLERK, PSC FATIGUE 50737 LOSS OF 01-25-2014 [place] WEIGHT SPOT BILLING CLERK, PSC 6279 UNSPECIFIED 12-27-2013 [facility] MENOPAUSAL& INC POSTMENOPAU GRIS DISORDER 05740 EFFUSION OF 12-24-2013 [place] LOWER LEG MEDICAL JOINT IMAGING ASS V148 PERSONAL 10-18-2013 [facility] ALLERGY OTH INC SPEC MEDICINAL AGTS 84902 MASTODYNIA 06-19-2013 [facility] INC 6101 DIFFUSE 06-14-2013 CHARLES PERERA MD MASTOPATHY 66445 OTHER SIGN 06-14-2013 CHARLES PERERA MD IN BREAST 7243 SCIATICA 06-06-2013 [place] [facility] 7393 NONALLOPATH 06-06-2013 [place] IC LESION CHIROPRACTI OF LUMBAR C CENTE REGION NEC 7394 NONALLOPATH 06-06-2013 [place] IC LESION CHIROPRACTI OF SACRAL C CENTE REGION NEC 7395 NONALLOPATH 06-06-2013 [place] IC LESION CHIROPRACTI OF PELVIC C CENTE REGION NEC 25225 CHRONIC 05-18-2013 [facility] MIGRAINE NEUROLOGY W/O W/INTRACTAB LE W/O SM 470 DEVIATED 04-18-2013 [facility] NASAL COMMUNITY SEPTUM HOSPITA 4739 UNSPECIFIED 04-18-2013 [place] SINUSITIS ANESTHESIA GROUP PS 4780 HYPERTROPHY 04-18-2013 [facility] OF NASAL COMMUNITY TURBINATES HOSPITA 34133 OTHER 04-18-2013 [facility] DISEASES OF COMMUNITY NASAL HOSPITA CAVITY AND SINUSES V7283 OTHER 04-12-2013 [facility] SPECIFIED COMMUNITY PRE-OPERATI HOSPITA VE EXAMINATION 7391 NONALLOPATH 03-02-2013 [place] IC LESION CHIROPRACTI OF CERVICAL C CENTE REGION NEC 46909 CHRONIC 2013 [facility] TENSION JAM TYPE HEADACHE 99843 SENILE 2013 [facility] RETICULAR JAM DEGENERATIO N PERIPHERAL RETINA 68559 DECREASED 12-08-2012 [place] [address] CONTUSION 11-11-2012 [facility] BACK EMERGENCY SERVICES 7244 THORACIC/JANINE 09-01-2012 [facility] MBOSACRAL EMERGENCY NEURITIS/RA SERVICES DICULITIS UNSPEC 7202 SACROILIITI 08-07-2012 [place] S NOT CHIROPRACTI ELSEWHERE C CENTE CLASSIFIED 24159 DISRUPTION 08-03-2012 [facility] OF EXTERNAL REFERNCE OPERATION LABORATORIE SURGICAL S WOUND 7933 NONSPECIFIC 07-19-2012 [place] ABN FINDNG CHIROPRACTI RAD&OTH C CENTE EXAM BILARY TRCT 3558 UNSPECIFIED 07-04-2012 [facility] MONONEURITI S OF LOWER LIMB 8479 SPRAIN AND 07-04-2012 [facility] ALFONOS STRAIN OF UNSPECIFIED SITE OF BACK 5589 OTH&UNSPEC 05-16-2012 [facility] NONINFECTIO EMERGENCY US SERVICES GASTROENTER ITIS&COLITI S 32966 ABDOMINAL 05-16-2012 [facility] [place] PAIN, RADIOLOGY UNSPECIFIED SITE V145 PERSONAL 05-16-2012 [facility] HISTORY OF COMMUNITY ALLERGY TO HOSPITAL NARCOTIC AGENT 7094 FOREIGN 05-01-2012 [facility] BODY EMERGENCY GRANULOMA SERVICES SKIN&SUBCUT ANEOUS TISSUE 7296 RESIDUAL 05-01-2012 [place] FOREIGN MEDICAL BODY IN IMAGING ASS SOFT TISSUE 8930 OPEN WOUND 05-01-2012 [facility] TOE WITHOUT EMERGENCY MENTION SERVICES COMPLICATIO N E9179 OTHER 05-01-2012 [facility] STRIKING EMERGENCY AGAINST SERVICES W/WO SUBSEQUENT FALL V065 NEED 05-01-2012 [facility] PROPHYLACTI MEM HOSP C INC VACCINATION W/TETANUS-D [facility] 4619 ACUTE 01-05-2012 [facility] [place] SINUSITIS, UNSPECIFIED 4779 ALLERGIC 01-05-2012 [facility] [place] RHINITIS CAUSE UNSPECIFIED 88632 NON-HEALING 11-19-2011 [facility] WOUND NEC 96216 DISRUPTION 11-16-2011 [facility] UNSPECIFIED 46507 PAIN IN 10-11-2011 [facility] [place] JOINT, ORTHOPAEDIC ANKLE AND S PLC FOOT 6918 OTHER 09-17-2011 [facility] ATOPIC DERMATITIS AND RELATED CONDITIONS 7820 DISTURBANCE 09-10-2011 [place] OF SKIN MEDICAL SENSATION IMAGING ASS E8889 UNSPECIFIED 06-22-2011 [facility] [place] FALL RADIOLOGY 8792 OPEN WOUND 04-20-2011 [facility] ABD WALL COMMUNITY ANT WITHOUT HOSPITAL MENTION COMP 56819 OTHER 04-20-2011 [facility] [place] POSTOPERATI RADIOLOGY VE INFECTION NEC 45163 UNSPECIFIED 03-10-2011 [facility] URETHRITIS EMERGENCY SERVICES 3569 UNSPEC 02-02-2011 [facility] HEREDIT&IDI [facility] OPATHIC HOSP PERIPHERAL NEUROPATHY 35616 CALCANEAL 01-14-2011 [facility] [place] SPUR RADIOLOGY 33186 HEMATURIA 01-12-2011 [facility] UNSPECIFIED EMERGENCY SERVICES 7880 RENAL COLIC 01-12-2011 [facility] 9176 FOOT&TOE 08-31-2010 [facility] SUP FB W/O COMMUNITY SOL OPN HOSPITA WND&W/O MENTION INF 98286 ERYTHEMA 06-03-2010 [facility] DUE TO BURN EMERGENCY OF BREAST SERVICES 27113 ERYTHMA DUE 06-03-2010 [facility]OS[facility] WALL EXCL[place] INC BREAST&[place] [address] ERYTHEMA 06-03-2010 [facility] DUE TO BURN EMERGENCY OF SERVICES ABDOMINAL WALL 98021 ERYTHEMA 06-03-2010 [facility] DUE TO BURN EMERGENCY SERVICES UNSPECIFIED SITE LOWER LIMB 12964 ERYTHEMA 06-03-2010 [facility] DUE TO [facility]URN EMERGENCY OF KNEE SERVICES 44353 ERYTHEMA 06-03-2010 [facility] DUE TO BURN MEM HOSP OF THIGH INC 515 POSTINFLAMM 05-04-2010 [facility] [place] ATORY RADIOLOGY PULMONARY FIBROSIS 7962 ELEVATED BP 05-03-2010 [facility] [place] WITHOUT DX HOSPITA HYPERTENSIO N 8921 OPEN WOUND 05-03-2010 [facility] OF FOOT EMERGENCY EXCEPT TOE SERVICES ALONE COMPLICATED E915 FOREIGN 05-03-2010 [facility] BODY EMERGENCY ACCIDENTALL SERVICES Y ENTERING OTHER ORIFICE 7862 COUGH 01-28-2010 [facility] [place] RADIOLOGY 46307 REFLUX 12-09-2009 [facility] ESOPHAGITIS ROSA WALLER 33642 ATROPHIC 12-09-2009 PATHOLOGY & GASTRITIS CYTOLOGY WITHOUT LAB MENTION OF HEMORRHAGE 89417 UNS 12-09-2009 [place] GASTRIT[facility]&G ANESTHESIA ASTRODUODIT GROUP PSC IS W/O MENTION HEMORR 5533 DIAPHRAGMAT 12-09-2009 [facility] W/O [facility] OBSTRUCTION /GANGREN 16898 CHEST PAIN 12-09-2009 [facility] UNSPECIFIED SRIDHAR ROSA 30197 OTHER CHEST 12-09-2009 [facility] 76472 NAUSEA 12-09-2009 [facility] 60374 ABDOMINAL 12-09-2009 [facility] PAIN, NKLIN, EPIGASTRIC ROSA 96531 ESOPHAGEAL 11-28-2009 [facility] PROF SERV 65293 ABDOMINAL 11-28-2009 [facility], [facility] 43345 UNSPECIFIED 10-06-2009 [facility] [place] 96258 OSTEOARTHRO 06-13-2009 [facility] [place] UNSPEC RADIOLOGY WHETHER GEN/LOC UNSPEC SITE 91621 DIARRHEA 05-09-2009 [facility] 8793 OPEN WOUND 05-09-2009 [facility] WALL ANTERIOR COMPLICATED 9597 INJURY 04-22-2009 [facility] [place] OTHER&UNSPE RADIOLOGY CIFIED KNEE LEG ANKLE&FOOT 7078 CHRONIC 04-03-2009 [facility] OTHER SPECIFIED SITE 6822 CELLULITIS 04-02-2009 [facility], AND ABSCESS [place] L OF TRUNK 09911 OTHER 03-01-2009 [facility] CARDIAC [facility] DYSRHYTHMIA S 7851 PALPITATION 03-01-2009 [facility] 5718 OTHER 02-26-2009 [facility] C LIVER DISEASE 8795 OPEN WOUND 02-26-2009 [facility], OF [place] L ABDOMINAL WALL LATERAL COMPLICATED V762 SCREENING 02-05-2009 PATHOLOGY & FOR CYTOLOGY [facility] LAB NEOPLASM OF THE CERVIX 8794 OPEN WOUND 12-25-2008 [facility] OF ABD WALL [place] [facility] LATERAL WITHOUT MENTION COMP 82913 CHRONIC 11-20-2008 [facility] DUE TO PAIN TRAUMA MEDICIINE PSC 7246 DISORDERS 11-20-2008 [facility] OF SACRUM PAIN MEDICIINE PSC 7265 ENTHESOPATH 11-20-2008 [facility] Y OF HIP PAIN REGION MEDICIINE PSC 44539 PAIN IN 10-30-2008 [facility] [place] JOINT, RADIOLOGY SHOULDER REGION 3550 LESION OF 09-13-2008 [facility] PSC 69156 DISPLCMT 08-20-2008 [facility] [place] LUMBAR RADIOLOGY 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 7213 LUMBOSACRAL 05-03-2008 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 6927 [facility] 03-20-2008 [facility] INC DUE SOLAR RADIATION 76564 OTHER 03-15-2008 [facility], AMYLOIDOSIS [place]ES[place] Abdul 3384 CHRONIC 03-15-2008 [facility], PAIN [facility] Abdul SYNDROME 7292 UNSPECIFIED 02-12-2008 [facility] NEURITIS AND RADICULITIS 7226 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-2007 [facility] INTERVERTEB RAL DISC SITE UNSPEC 58499 SPONDYLOSIS 11-21-2007 [facility] [employer] SITE [...] DOS Code Location Performer Comment PROF SVBURKE 47953 ALLERGY ZIEGLER ALLG 7 PARTNERS IMMNTX X OF [place]ARD W/PRV CO ALLGIC XTRCS NJXS COMPREHEN 47543 [facility] JUDY SIVE [facility] PANEL COLLECTIO 98139 [facility] N VENOUS 7 [facility] VENIPUNCT URE THROMBOPL 57651 [facility] ASTIN 7 [facility] PARTIAL PLASMA/WH OLE BLOOD CUL 20874 [facility] PRSMPTV 7 [facility] ORGANISM SCRN W/COLONY ESTIMJ PROTHROMB 20329 [facility] IN TIME [address] [place] [address] [place] [address] [facility] THYROID [address] [place] [address] NG HORMONE TSH LIPID 82465 [facility] PANEL [address] [place] [address] ECG 67325 [facility] ROUTINE [address] [place] [address] HOSPITAL W/LEAST 12 LDS TRCG ONLY W/O I&R URNLS DIP [address] [facility] HOSPITAL LET REAGENT AUTO MICROSCOP Y HEMOGLOBI 61829 [facility] N [address] [place] [address] HOSPITAL STEFANO A1C BLOOD 58169 [facility] COUNT [address] [place] [address] HOSPITAL AUTOMATED PROF [facility] 51113 ALLERGY ZIEGLER ALLG 7 PARTNERS IMMNTX X OF [place] W/PRV CO ALLGIC XTRCS NJXS CT THORAX 41075 [facility] [place] GARRETT 7 RADIOLOGY W/CONTRAS T MATERIAL RADIOLOGI 28115 [facility] MARTI C 7 EXAMINATI ORTHOPAED ON KNEE 3 ICS PSC VIEWS COLLECTIO 56091 [facility] N VENOUS 7 [facility] VENIPUNCT URE BASIC 89689 [facility] METABOLIC [address] [place] [address] [place] [address] JUDY KIM HPYLORI 7 [facility] [place] [address] JUDY KIM DIFFUSING [address] [place] [address] HOSPITAL PLETHYSMO 73691 [facility] GRAPHY [address] [place] [address] HOSPITAL VOLUMES W/WO AIRWAY RESIST BRNCDILAT 94557 JUDY KIM RSPSE [address] [place] [address] PRE&POST- BRNCDILAT ADMN SPMTRY 73288 YAMIL TAYLOR W/VC 7 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 Y CLARA PRA W/WO MXML VOL VNTJ COLLECTIO 52447 YAMIL Laguerre VENOUS 7 REGIONAL [facility] MEDICAL VENIPUNCT [facility] URE BLOOD 85714 YAMIL LOBO COUNT 7 [facility]AL [facility] MEDICAL AUTO&AUTO CENTE CENTE DIFRNTL WBC PROF [facility] 49965 ALLERGY ZIEGLER ALLG 7 PARTNERS IMMNTX X OF [place] W/PRV CO ALLGIC XTRCS NJXS ANTIBODY 73228 YAMIL LOBO BLASTOMYC 7 REGIONAL REGIONAL [facility] MEDICAL CENTE CENTE ANTIBODY 45623 YAMIL LOBO ASPERGILL 7 REGIONAL [facility] CENTE CENTE ANTIBODY 10139 YAMIL LOBO HISTOPLAS [address] [facility] PREPJ& 90510 ALLERGY ZIEGLER ALLERGEN 7 PARTNERS IMMUNOTHE OF HILLIARD RAPY CO 1/ROCK SPLITTER ANTIGEN PROF SVCS 52781 ALLERGY ZIEGLER ALLG 7 PARTNERS IMMNTX X OF [place] W/PR[place] [address] [facility] SURG [address] [place] [address] GROSS&MIKAL ROSCOPIC EXAM IMHISTOCH 03196 [facility] KIM EM/CYTCHM [address] [place] [address] ANTIBODY STAIN PROCEDURE PRESSURIZ 17479 JUDY KIM ED/NONPRE [address] [place] [address] INHALATIO N TREATMENT EGD 36855 [facility] TRANSORAL [address] [place] [address] SINGLE/MU LTIPLE POLYSOM 96762 G[facility] AMIN AMIN 6/>YRS 7 MD SLEEP 4/> CONSULTIN ADDL G SRV [place] ATTND POLYSOM 38927 [facility] 6/>YRS 7 [facility] SLEEP 4/> HOSPITAL HOSPITAL ADDL [place] ATTND INJECTION J1030 [facility] KIDD 7 METHYLPRE ORTHOPAED DNISOLONE ICS PSC ACETATE 40 MG ARTHROCEN 59166 [facility] KIDD TESIS 7 ASPIR&/IN ORTHOPAED J MAJOR ICS PSC JT/BURSA W/O US RADIOLOGI 39037 [facility] KIDD C 7 EXAMINATI ORTHOPAED ON KNEE 3 ICS PSC VIEWS PROF SVCS 73828 ALLERGY ZIEGLER ALLG 7 PARTNERS IMMNTX X OF [place] W/PRV CO ALLGIC XTRCS NJXS RADIOLOGI 34636 [facility] EXAM [address] VIEWS FRONTAL&L ATERAL IAADIADOO 06071 [facility] 7 [facility] PRESSURIZ 69567 [facility] ED/NONPRE 7 [facility] INHALATIO N TREATMENT BASIC 12186 [facility] METABOLIC 7 [facility] PANEL INC INC CALCIUM TOTAL COLLECTIO 24608 [facility] N VENOUS 7 [facility] BLOOD INC INC VENIPUNCT URE COLLECTIO 85046 [facility] Z[facility]OASTRI[facility] N VENOUS 7 [facility] BLOOD [facility] VENIPUNCT URE LOCM Q9967 [facility]OASTRIAN ZOROASTRIAN [phone] [facility] MG/ML [facility] IODINE CONCENTRA TION PER ML INJECTION J3010 [facility]AN ZOROASTRIAN FENTANYL 7 [facility] CITRATE [facility] 0.1 MG INTRDUCR/ C1894 [facility]AN ZOROASTRIAN SHEATH 7 [facility] NOT GUID [facility] INTRACARD EP NON-LASR HEMOGLOBI 13886 [facility] ZOROASTRIAN N 7 [facility] GLYCOSYLA [facility] STEFANO A1C INJECTION J2250 [facility]ASTRIAN ZOROASTRIAN 7 [facility] MIDAZOLAM [facility] HCL PER 1 MG CATH PLMT 19849 ZOROASTRIAN THOMAS Trimble HRT & 7 to be ARTS MEDICAL W/NJX & GROUP ANGIO IMG S&I LIPID 31124 [facility] ZOROASTRIAN PANEL 7 [facility] GUIDE C1769 Z[facility]RIAN ZOROASTRIAN WIRE 7 [facility] INJECTION J1644 [facility] HEPARIN 7 [facility] SODIUM [facility] PER 1000 UNITS COMPREHEN 51253 [facility]RI[facility] ZOROASTRIAN SIVE 7 [facility] METABOLIC [facility] PANEL FIBRIN 89602 [facility] DGRADJ [facility] D-DIMER QUANTITAT JAG CREATINE 46416 [facility] KINASE MB 7 [facility] HOSPITAL ONLY BASIC 04812 [facility] METABOLIC [address] [place] [address] [place] [address] [facility] TROPONIN [address] [place] [address] HOSPITAL JAG BLOOD 79477 [facility] COUNT [address] [place] [address] HOSPITAL AUTO&AUTO DIFRNTL WBC RADIOLOGI 86695 [place] G[place] C 7 RADIOLOGY EXAMINATI ON CHEST SINGLE VIEW FRONTAL ECG 85803 [facility] ROUTINE [address] [place] [address] HOSPITAL W/LEAST 12 LDS TRCG ONLY W/O I&R INJECTION J1040 [facility] VAN 7 METHYLPRE ORTHOPAED DNISOLONE ICS PSC ACETATE 80 MG NJX 55968 [facility] VAN DX/THER 7 SBST ORTHOPAED INTRLMNR ICS PSC LMBR/SAC W/IMG GDN LOCM Q9965 [facility] VAN 100-199 7 MG/ML ORTHOPAED IODINE ICS PSC CONCENTRA TION PER ML PROF SVCS 35383 ALLERGY ZIEGLER ALLG 7 PARTNERS IMMNTX X OF [place] W/PRV CO ALLGIC XTRCS NJXS CV STRS 75412 [facility] AMIN WAESPE TST 7 MD XERS&/OR CONSULTIN RX CONT G SRV ECG I&R ONLY NONINVASI 56602 [facility] AM[facility] AMIN VE 7 EAR/PULSE CONSULTIN OXIMETRY G SRV OVERNIGHT MONITOR TECHNETIU A9500 JUDY KIM M TC-99M 7 [facility] DX PER STUDY DOSE MYOCARDIA 21297 [facility] AMIN WAESPE L SPECT 7 MULTIPLE CONSULTIN STUDIES G SRV CV STRS 87468 JUDY KIM TST 7 [facility] XERS&/OR [facility] RX CONT ECG TRCG ONLY ECHO 77968 [facility] AMIN AMIN TTHRC R-T 7 2D CONSULTIN W/WOM-MOD G SRV E COMPL SPEC&COLR D LIPID 81912 [facility] PANEL 7 [facility] INC INC POTASSIUM 62675 [facility] SERUM 7 [facility] HOSP PLASMA/[place] B[place] [address] [facility] THYROID 7 [facility] HOSP STIMULATI INC INC NG HORMONE TSH COLLECTIO 19932 [facility] N VENOUS 7 [facility] B[facility] INC INC VENIPUNCT URE RADIOLOGI 65384 [place] [place] G[place] C EXAM 7 RADIOLOGY CHEST 2 VIEWS FRONTAL&L ATERAL COMPREHEN 31982 JUDY KIM SIVE [address] [place] [address] PANEL ECG 42942 JUDY KIM ROUTINE 7 [facility] W/LEAST 12 LDS TRCG ONLY W/O I&R THER 34371 JUDY RODGERS JR PROPH/DX 7 [facility] PUSH SINGLE/1S T SBST/DRUG BLOOD 99514 JUDY KIM COUNT 7 [facility] AUTO&[place] [address] JUDY KIM TROPONIN 7 [facility] JAG INJECTION J1040 [facility] RE[facility]AN 7 METHYLPRE ORTHOPAED DNISOLONE ICS PSC ACETATE 80 MG NJX 45773 [facility] 7 SBST ORTHOPAED INTRLMNR ICS PSC LMBR/SAC W/IMG GDN PROF SVCS 87233 ALLERGY ZIEGLER ALLG 7 PARTNERS IMMNTX X OF [place] W/PRV CO ALLGIC XTRCS NJXS URNLS DIP 25501 BROCK MAGED 7 AND STICK/TAB MAGED, LET RGNT PSC NON-AUTO W/O MICRSCP PREPJ& 90258 ALLERGY ZIEGLER ALLERGEN 7 PARTNERS IMMUNOTHE OF [place] RAPY CO 1/[place] [address] ALLERGY ZIEGLER ALLG 7 PARTNERS IMMNTX X OF [place] W/[place] [address] ALLERGY ZIEGLER ALLG 7 PARTNERS IMMNTX X OF [place] W/PRV CO ALLGIC XTRCS NJXS RADIOLOGI 65726 [facility] MARTI C 7 EXAMINATI ORTHOPAED ON KNEE ICS PSC 1/2 VIEWS ECG 10806 [facility] ROUTINE 6 [facility] ECG INC INC W/LEAST 12 LDS TRCG ONLY W/O I&R ECG 33189 [facility] ADAM JR ROUTINE 6 [facility] W/LEAST P 12 LDS I&R ONLY PRESSURIZ 54541 [facility] ED/NONPRE 6 [facility] SSURIZED INC INC INHALATIO N TREATMENT SPMTRY 59513 ALLERGY ZIEGLER MAR W/VC 6 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 [place] Y CLARA CO W/WO MXML VOL VNTJ NITRIC 67971 ALLERGY ZIEGLER MAR OXIDE 6 PARTNERS OF [place] GAS CO DETERMINA TION PROF [facility] 82542 ALLERGY ZIEGLER MAR ALLG 6 PARTNERS IMMNTX X OF [place] W/PRV CO ALLGIC XTRCS NJXS PROF [facility] 97404 ALLERGY ZIEGLER MAR ALLG 6 PARTNERS IMMNTX X OF [place] W/PRV CO ALLGIC XTRCS NJXS PROF [facility] 30309 ALLERGY ZIEGLER MAR ALLG 6 PARTNERS IMMNTX X OF [place] W/PRV CO ALLGIC XTRCS NJXS PREPJ& 74253 ALLERGY ZIEGLER MAR ALLERGEN 6 PARTNERS IMMUNOTHE OF [place] RAPY CO 1/ROCK SPLITTER ANTIGEN 3D 42340 [place] KLARISSA RENDERING 6 MEDICAL W/INTERP IMAGING & ASS POSTPROCE SS SUPERVISI ON MRI 35646 [place] KLARISSA SPINAL 6 MEDICAL CANAL IMAGING LUMBAR ASS W/O CONTRAST MATERIAL PROF [facility] 80127 ALLERGY ZIEGLER MAR ALLG 6 PARTNERS IMMNTX X OF [place] W/PRV CO ALLGIC XTRCS NJXS PROF [facility] 18972 ALLERGY ZIEGLER MAR ALLG 6 PARTNERS IMMNTX X OF [place] W/PRV CO ALLGIC XTRCS NJXS RADEX 09363 BLUELOIS MARTI SPINE 6 GRE LUMBOSACR ORTHOPAED AL 2/3 ICS PSC VIEWS RADIOLOGI 92181 [facility] MARTI C 6 GRE EXAMINATI ORTHOPAED ON KNEE ICS PSC 1/2 VIEWS PROF [facility] 31120 ALLERGY ZIEGLER MAR ALLG 6 PARTNERS IMMNTX X OF [place] W/PRV CO ALLGIC XTRCS NJXS OPHTH 46382 [facility] 6 VISION XM&EVAL CENTER COMPRHNSV ESTAB PT 1/> DETERMINA 15511 MI[facility] BRYANT TION 6 [facility] RE[facility]RACTIV CENTER E STATE PROF [facility] 27412 ALLERGY ZIEGLER MAR ALLG 6 PARTNERS IMMNTX X OF [place] W/PRV CO ALLGIC XTRCS NJXS PROF [facility] 34106 ALLERGY ZIEGLER MAR ALLG 6 PARTNERS IMMNTX X OF [place] W/PRV CO ALLGIC XTRCS NJXS SPMTRY 82914 ALLERGY ZIEGLER MAR W/VC 6 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 [place] Y CLARA CO W/WO MXML VOL VNTJ NITRIC 05459 ALLERGY ZIEGLER MAR OXIDE 6 PARTNERS OF [place] GAS CO DETERMINA TION DEMO&/GERMAINE 48584 ALLERGY ALLERGY L OF PT 6 PARTNERS PARTNERS UTILIZ OF [place] OF [place] AERSL CO CO GEN/NEB/I NHLR/IP PROF [facility] 54697 ALLERGY ZIEGLER MAR ALLG 6 PARTNERS IMMNTX X OF [place] W/PRV CO ALLGIC XTRCS NJXS PROF [facility] 81837 ALLERGY ZIEGLER MAR ALLG 6 PARTNERS IMMNTX X OF [place] W/PRV CO ALLGIC XTRCS NJXS PROF [facility] 27928 ALLERGY ZIEGLER MAR ALLG 6 PARTNERS IMMNTX X OF [place] W/PRV CO ALLGIC XTRCS NJXS RADIOLOGI 89100 BLUELOIS MOREIRAGELO C 6 GRE EXAMINATI ORTHOPAED ON KNEE ICS PSC 1/2 VIEWS PROF [facility] 55891 ALLERGY ZIEGLER MAR ALLG 6 PARTNERS IMMNTX X OF [place] W/PRV CO ALLGIC XTRCS NJXS PROF [facility] 53043 ALLERGY ZIEGLER MAR ALLG 6 PARTNERS IMMNTX X OF [place] W/PRV CO ALLGIC XTRCS NJXS PROF [facility] 48365 ALLERGY ZIEGLER MAR ALLG 6 PARTNERS IMMNTX X OF [place] W/PRV CO ALLGIC XTRCS NJXS SCREENING G0202 [facility] 6 MEDICAL [place]IE MAMMOGRAP IMAGING HY BENEDICT ASS INCL CAD WHEN PERFORMD COMPUTER- 60670 [facility] AIDED 6 MEDICAL LILLIE DETECTION IMAGING ASS SCREENING MAMMOGRAP HY THERAPEUT 04466 [facility] IC PX 1/> 6 [facility] AREAS INC INC EACH 15 MIN EXERCISES PROF [facility] 32169 ALLERGY ZIEGLER MAR ALLG 6 PARTNERS IMMNTX X OF [place] W/PRV CO ALLGIC XTRCS NJXS THERAPEUT 67902 [facility] IC PX 1/> 6 [facility] AREAS INC INC EACH 15 MIN EXERCISES THERAPEUT 51017 IND[facility] HUNTERON IC PX 1/> 6 [facility] AREAS INC INC EACH 15 MIN EXERCISES IADNA 03611 BIO BIO TRICHOMON 6 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 VAGINALIS IES IES AMPLIFIED PROBE TECH CYTP C/V 99979 BIO BIO AUTO THIN 6 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 PREPJ SCR IES IES MNL RESCR PHYS URINLS 25223 [facility] DIP 6 PHYSICIAN PHYSICIAN STICK/TAB S GROUP S GROUP LET REAGNT NON-AUTO MICRSCPY ANNUAL G0439 [facility] WELLNESS 6 PHYSICIAN SONJA VST; S GROUP PERSONALI ZED PPS SUBSQT VST THERAPEUT 04973 INDIO INDIO IC PX 1/> 6 [facility] EACH 15 MIN EXERCISES PROF [facility] 43982 ALLERGY ZIEGLER MAR ALLG 6 PARTNERS IMMNTX X OF [place] W/PRV CO ALLGIC XTRCS NJXS THERAPEUT 46103 IND[facility] HUNTERON IC PX 1/> 6 [facility] AREAS INC INC EACH 15 MIN EXERCISES THERAPEUT 72892 INDIO INDIO IC PX 1/> 6 [facility] AREAS INC INC EACH 15 MIN EXERCISES THERAPEUT 76873 INDIO INDIO IC PX 1/> 6 [facility] AREAS INC INC EACH 15 MIN EXERCISES PREPJ& 33838 ALLERGY ZIEGLER MAR ALLERGEN 6 PARTNERS IMMUNOTHE OF [place] RAPY CO 1/ROCK SPLITTER ANTIGEN THERAPEUT 10178 INDIO INDIO IC PX 1/> 6 [facility] AREAS INC INC EACH 15 MIN EXERCISES PHYSICAL 49135 [facility] THERAPY 6 [facility] EVALUATIO INC INC N 80376 [facility] G[facility] 6 ANESTHESI NEEDLE A PLACEMENT ASSOCIAT IMG S&I ARTHRP 67568 [facility] MARTI KNEE 6 GRE CONDYLE&P ORTHOPAED LATEAU ICS PSC MEDIAL/LA T CMPRT VANCOUVER E0135 [employer] FOLDING 6 ADJUSTABL E OR FIXED HEIGHT INJECTION 15303 [facility] 6 ANESTHESI ANESTHETI A C AGENT ASSOCIAT FEMORAL NERVE SINGLE PROF [facility] 87407 ALLERGY ZIEGLER MAR ALLG 6 PARTNERS IMMNTX X OF [place] W/PRV CO ALLGIC XTRCS NJXS COLLECTIO 88570 [facility] N VENOUS 6 DIAGNOSTI DIAGNOSTI BLOOD CS CS VENIPUNCT [place] [address] [facility] THYROID 6 DIAGNOSTI DIAGNOSTI STIMULATI CS CS NG INCORPORA INCORPORA HORMONE T T TSH LIPID 92873 [facility] PANEL 6 DIAGNOSTI DIAGNOSTI CS CS INCORPORA INCORPORA T T ANNUAL G0439 BROCK LYNEN WELLNESS 6 AND JANE VST; SONY LYNNEI PSC ZED PPS SUBSQT VST ECG 57094 JUDY KIM ROUTINE 6 [facility] HOSPITAL W/LEAST 12 LDS TRCG ONLY W/O I&R URNLS DIP 54900 JUDY KIM [address] [place] [address] LET REAGENT AUTO MICROSCOP Y HEMOGLOBI 59357 JUDY KIM N [address] [place] [address] STEFANO A1C BLOOD 61604 JUDY KIM COUNT [address] [place] [address] AUTO&AUTO DIFRNTL WBC BASIC 83842 JUDY KIM METABOLIC [address] [place] [address] CALCIUM TOTAL ECG 99065 GRAEME AMIN AMIN GRAEME ROUTINE 6 MD ECG CONSULTIN W/LEAST G SRV 12 LDS I&R ONLY PROTHROMB 57833 JUDY KIM IN TIME [address] [place] [address] CUL 26938 JUDY KIM PRSMPTV [address] [place] [address] HOSPITAL ORGANISM SCRN W/COLONY ESTIMJ RADIOLOGI 24328 [facility] [place] NIKKI C EXAM 6 RADIOLOGY RHO CHEST 2 VIEWS FRONTAL&L ATERAL COLLECTIO 39691 JUDY KIM N VENOUS [address] [place] [address] VENIPUNCT URE THROMBOPL 40813 JUDY KIM ASTIN [address] [place] [address] PARTIAL PLASMA/WH OLE BLOOD PROF SVCS 57471 ALLERGY ZIEGLER MAR ALLG 6 PARTNERS IMMNTX X OF [place] W/PRV CO ALLGIC XTRCS NJXS PROF SVCS 79663 ALLERGY ZIEGLER MAR ALLG 6 PARTNERS IMMNTX X OF [place] W/PRV CO ALLGIC XTRCS NJXS PROF SVCS 55214 ALLERGY ZIEGLER MAR ALLG 6 PARTNERS IMMNTX X OF [place] W/PRV CO ALLGIC XTRCS NJXS PROF SVCS 16160 ALLERGY ZIEGLER MAR ALLG 6 PARTNERS IMMNTX X OF [place] W/PRV CO ALLGIC XTRCS NJXS RADIOLOGI 57140 CHASTITY Suárez 6 SOPHIE EXAMINATI ORTHOPAED ON KNEE 3 [place] [address] ALLERGY ZIEGLER MAR ALLG 6 PARTNERS IMMNTX X OF [place] W/PRV CO ALLGIC XTRCS NJXS INCISION 78854 INDIO INDIO & REMOVAL 6 [facility] FOREIGN INC INC BODY SUBQ TISS COMPL PREPJ& 74719 ALLERGY ZIEGLER MAR ALLERGEN 6 PARTNERS IMMUNOTHE OF [place] RAPY CO 1/[place] [address] ALLERGY ZIEGLER MAR ALLG 6 PARTNERS IMMNTX X OF [place] W/[place] [address] ALLERGY ZIEGLER MAR ALLG 6 PARTNERS IMMNTX X OF [place] W/[place] [address] ALLERGY ZIEGLER MAR ALLG 6 PARTNERS IMMNTX X OF [place] W/PR[place] [address] ALLERGY ZIEGLER MAR ALLG 6 PARTNERS IMMNTX X OF [place] W/[place] [address] ALLERGY ZIEGLER MAR ALLG 6 PARTNERS IMMNTX X OF [place] W/PRV CO ALLGIC XTRCS NJXS ARTHROCEN 04014 [facility] TESIS 6 [place] ASPIR&/IN ORTHOPAED J MAJOR ICS PLC JT/BURSA W/O US HYALURONA J7324 [facility] N/DERIV 6 [place] ORTHOVISC ORTHOPA[place] [address] ALLERGY ZIEGLER MAR ALLG 6 PARTNERS IMMNTX X OF [place] W/PRV CO ALLGIC XTRCS NJXS PROF SVCS 59034 ALLERGY ZIEGLER MAR ALLG 6 PARTNERS IMMNTX X OF [place] W/PRV CO ALLGIC XTRCS NJXS SPMTRY 23857 ALLERGY ZIEGLER MAR W/VC 6 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 [place] Y CLARA CO W/WO MXML VOL VNTJ NITRIC 66953 ALLERGY ZIEGLER MAR OXIDE 6 PARTNERS OF [place] GAS CO DETERMINA TION PROF SVCS 29813 ALLERGY ZIEGLER MAR ALLG 6 PARTNERS IMMNTX X OF [place] W/PRV CO ALLGIC XTRCS NJXS PROF SVCS 38328 ALLERGY ZIEGLER MAR ALLG 6 PARTNERS IMMNTX X OF [place] W/PRV CO ALLGIC XTRCS NJXS PROF SVCS 23079 ALLERGY ZIEGLER MAR ALLG 6 PARTNERS IMMNTX X OF [place] W/PRV CO ALLGIC XTRCS NJXS PROF SVCS 35889 ALLERGY ZIEGLER MAR ALLG 6 PARTNERS IMMNTX X OF [place] W/PRV CO ALLGIC XTRCS NJXS PROF SVCS 73290 ALLERGY ZIEGLER MAR ALLG 6 PARTNERS IMMNTX X OF [place] W/PRV CO ALLGIC XTRCS NJXS PROF SVCS 49489 ALLERGY ZIEGLER MAR ALLG 6 PARTNERS IMMNTX X OF [place] W/PRV CO ALLGIC XTRCS NJXS PREPJ& 57353 ALLERGY ZIEGLER MAR ALLERGEN 6 PARTNERS IMMUNOTHE OF [place] RAPY CO 1/ROCK SPLITTER ANTIGEN PROF SVCS 75696 ALLERGY ZIEGLER MAR ALLG 6 PARTNERS IMMNTX X OF [place] W/PRV CO ALLGIC XTRCS NJXS PROF SVCS 43595 ALLERGY ZIEGLER MAR ALLG 6 PARTNERS IMMNTX X OF [place] W/PRV CO ALLGIC XTRCS NJXS PROF SVCS 38628 ALLERGY ZIEGLER MAR ALLG 6 PARTNERS IMMNTX X OF [place] W/PRV CO ALLGIC XTRCS NJXS PROF SVCS 15552 ALLERGY ZIEGLER MAR ALLG 6 PARTNERS IMMNTX X OF [place] W/PRV CO ALLGIC XTRCS NJXS PROF SVCS 33266 ALLERGY ZIEGLER MAR ALLG 5 PARTNERS IMMNTX X OF [place] W/PRV CO ALLGIC XTRCS NJXS THERAPEUT 20235 [facility] IC PX 1/> 5 [facility] ARE[facility] INC INC EACH 15 MIN EXERCISES APPLICATI 63413 [facility] ON 5 [facility] MODALITY INC INC 1/> AREAS HOT/COLD PACKS E-STIM [id number] [facility] 1/> AREAS 5 [facility] OTH THAN INC INC WND CARE PART TX PLAN E-STIM [id number] [facility] 1/> AREAS 5 [facility] OTH THAN INC INC WND CARE PART TX PLAN APPL 67278 [facility] MODALITY 5 [facility] 1/> AREAS INC INC VASOPNEUM ATIC DEVICES PHYSICAL 19160 [facility] THERAPY 5 [facility] EVALUATIO INC INC N THERAPEUT 55277 [facility] IC PX 1/> 5 [facility] INC INC EACH 15 MIN EXERCISES DEMO&/GERMAINE 39216 ALLERGY ZIEGLER MAR L OF PT 5 PARTNERS UTILIZ OF [place] AERSL CO GEN/NEB/I NHLR/IP NITRIC 87155 ALLERGY ZIEGLER MAR OXIDE 5 PARTNERS OF [place] GAS CO DETERMINA TION SPMTRY 99354 ALLERGY ZIEGLER MAR W/VC 5 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 [place] Y CLARA CO W/WO MXML VOL VNTJ PROF SVCS 17573 ALLERGY ZIEGLER MAR ALLG 5 PARTNERS IMMNTX X OF [place] W/PRV CO ALLGIC XTRCS NJXS PROF SVCS 97316 ALLERGY ZIEGLER MAR ALLG 5 PARTNERS IMMNTX X OF [place] W/PRV CO ALLGIC XTRCS NJXS PROF SVCS 91887 ALLERGY ZIEGLER MAR ALLG 5 PARTNERS IMMNTX X OF [place] W/PRV CO ALLGIC XTRCS NJXS PROF SVCS 83480 ALLERGY ZIEGLER MAR ALLG 5 PARTNERS IMMNTX X OF [place] W/PRV CO ALLGIC XTRCS NJXS PROF SVCS 46264 ALLERGY ZIEGLER MAR ALLG 5 PARTNERS IMMNTX X [place] W/PRV CO ALLGIC XTRCS NJXS PROF SVCS 88009 ALLERGY ZIEGLER MAR ALLG 5 PARTNERS IMMNTX X OF [place] W/PRV CO ALLGIC XTRCS NJXS ANES 45513 SAMMI BYRNE OPEN/SURG 5 ANESTHESI ROSALES A GROUP ARTHROSCO PS PIC PROC KNEE JOINT NOS ARTHRS 15464 [facility] KNE SURG 5 [place] W/MENISCE ORTHOPAED CTOMY ICS PLC MED/LAT W/SHVG PROF SVCS 72691 ALLERGY ZIEGLER MAR ALLG 5 PARTNERS IMMNTX X [facility] [place] W/PRV CO ALLGIC XTRCS NJXS PROF SVCS 17631 ALLERGY ZIEGLER MAR ALLG 5 PARTNERS IMMNTX X [facility] [place] W/PRV CO ALLGIC XTRCS NJXS RADIOLOGI 85051 CNTRL [place] NIKKI C EXAM 5 RADIOLOGY RHO CHEST 2 VIEWS FRONTAL&L ATERAL COLLECTIO 04123 [facility] N VENOUS 5 N N BLOOD COMMUNTIY COMMUNTIY VENIPUNCT HOSPITA HOSPITA URE BASIC 67509 [facility] METABOLIC 5 N N PANEL COMMUNTIY COMMUNTIY CALCIUM HOSPITA HOSPITA TOTAL ECG 82836 [facility] ROUTINE 5 N N ECG COMMUNTIY COMMUNTIY W/LEAST HOSPITA HOSPITA 12 LDS TRCG ONLY W/O I&R BLOOD 18848 [facility] COUNT 5 N N COMPLETE COMMUNTIY COMMUNTIY AUTOMATED HOSPITA HOSPITA PROF SVCS 92397 ALLERGY ZIEGLER MAR ALLG 5 PARTNERS IMMNTX X OF [place] W/PRV CO ALLGIC XTRCS NJXS PROF SVCS 59990 ALLERGY ZIEGLER MAR ALLG 5 PARTNERS IMMNTX X OF [place] W/PRV CO ALLGIC XTRCS NJXS PROF SVCS 77213 ALLERGY ZIEGLER MAR ALLG 5 PARTNERS IMMNTX X OF [place] W/PRV CO ALLGIC XTRCS NJXS PROF SVCS 74155 ALLERGY ZIEGLER MAR ALLG 5 PARTNERS IMMNTX X [place] W/PRV CO ALLGIC XTRCS NJXS PROF SVCS 32875 ALLERGY ZIEGLER MAR ALLG 5 PARTNERS IMMNTX X [place] W/PRV CO ALLGIC XTRCS NJXS MRI ANY 33073 CENTRAL [facility] JT LOWER 5 [place] SOP[place] EXTREM ORTHOPAED W/O ICS PLC CONTRAST MATRL PROF SVCS 39579 ALLERGY ZIEGLER MAR ALLG 5 PARTNERS IMMNTX X OF [place] W/PRV CO ALLGIC XTRCS NJXS PROF SVCS 91275 ALLERGY ZIEGLER MAR ALLG 5 PARTNERS IMMNTX X OF [place] W/PRV CO ALLGIC XTRCS NJXS PROF SVCS 34202 ALLERGY ZIEGLER MAR ALLG 5 PARTNERS IMMNTX X OF [place] W/PRV CO ALLGIC XTRCS NJXS PROF SVCS 25631 ALLERGY ZIEGLER MAR ALLG 5 PARTNERS IMMNTX X OF [place] W/PRV CO ALLGIC XTRCS NJXS INJECTION J1100 BROCK MAGED 5 AND JANE DEXAMETHO MAGED, SONE PSC SODIUM PHOSPHATE 1 MG INJECTION J0696 BROCK MAGED 5 AND JANE CEFTRIAXO MAGED, NE SODIUM PSC PER 250 MG PROF SVCS 45573 ALLERGY ZIEGLER MAR ALLG 5 PARTNERS IMMNTX X OF [place] W/PRV CO ALLGIC XTRCS NJXS PROF SVCS 89799 ALLERGY ZIEGLER MAR ALLG 5 PARTNERS IMMNTX X OF [place] W/PRV CO ALLGIC XTRCS NJXS PROF SVCS 03202 ALLERGY ZIEGLER MAR ALLG 5 PARTNERS IMMNTX X OF [place] W/PRV CO ALLGIC XTRCS NJXS PROF SVCS 91524 ALLERGY ZIEGLER MAR ALLG 5 PARTNERS IMMNTX X OF [place] W/PRV CO ALLGIC XTRCS NJXS PROF SVCS 67616 ALLERGY ZIEGLER MAR ALLG 5 PARTNERS IMMNTX X OF [place] W/PRV CO ALLGIC XTRCS NJXS PROF SVCS 80394 ALLERGY ZIEGLER MAR ALLG 5 PARTNERS IMMNTX X OF [place] W/PRV CO ALLGIC XTRCS NJXS PROF SVCS 67162 ALLERGY ZIEGLER MAR ALLG 5 PARTNERS IMMNTX X OF [place] W/PRV CO ALLGIC XTRCS NJXS PROF SVCS 89059 ALLERGY ZIEGLER MAR ALLG 5 PARTNERS IMMNTX X OF [place] W/PRV CO ALLGIC XTRCS NJXS PREPJ& 71858 ALLERGY ZIEGLER MAR ALLERGEN 5 PARTNERS IMMUNOTHE OF [place] RAPY CO 1/ROCK SPLITTER ANTIGEN PERCUTANE 43042 ALLERGY ZIEGLER MAR OUS TESTS 5 [facility] W/ALLERGE CO ABNER EXTRACTS INTRACUTA 87627 ALLERGY ALLERGY NEOUS 5 PARTNERS PARTNERS [facility] [place] W/ALLERGE CO CO ABNER EXTRACTS PERCUTANE 64143 ALLERGY ZIEGELR MAR OUS TESTS 5 [facility] [place] W/ALLERGE CO ABNER EXTRACTS NITRIC 90846 ALLERGY ZIEGLER MAR OXIDE 5 [facility] [place] GAS CO DETERMINA TION SPMTRY 72541 ALLERGY ZIEGLER MAR W/VC 5 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 [place] Y CLARA CO W/WO MXML VOL VNTJ HYALURONA J7324 [facility] N/DERIV 5 [place] SOP[facility]IE ORTHOVISC ORTHOPAED [place] INJ ICS PLC PER DOSE ARTHROCEN 89371 [facility] [place] TESIS 5 [place] ASPIR&/IN ORTHOPAED J MAJOR ICS PLC JT/BURSA W/O US ARTHROCEN 64212 [facility] TESIS 5 [place] ASPIR&/IN ORTHOPAED J MAJOR ICS PLC JT/BURSA W/O US HYALURONA J7324 [facility] [place] N/DERIV 5 [place]IE ORTHOVISC ORTHOPAED IA INJ ICS PLC PER DOSE HYALURONA J7324 [facility] [place] N/DERIV 5 [place]OP[place] ORTHOVISC ORTHOPAED IA INJ ICS PLC PER DOSE ARTHROCEN 12712 [facility] [place] TESIS 5 [place]OP[place] ASPIR&/IN ORTHOPAED J MAJOR ICS PLC JT/BURSA W/O US SCREENING G0202 [facility] MAMMOGRAP INC INC HY BENEDICT INCL CAD WHEN PERFORMD 50346 [facility] AIDED 5 [facility] DETECTION INC INC SCREENING MAMMOGRAP HY URINLS 09635 CHARLES SOTO R DIP 5 DILMA PERERA MD STICK/TAB LET REAGNT NON-AUTO MICRSCPY ANNUAL G0439 CHARLES PERERA WELLNESS 5 DILMA CASILLAS VST; PERSONALI ZED PPS SUBSQT VST IADNA 41517 BIO BIO 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 [place] [address] [facility] B[facility]AS INFUSION 5 [facility] THERAPY/P INC INC ROPHYLAXI S /DX 1ST TO 1 HR GLUCOSE 25901 [facility] BODY 5 N N FLUID COMMUNTIY COMMUNTIY OTHER HOSPITA HOSPITA THAN BLOOD SPINAL 70014 [facility] [place]AL[place] ELIU PUNCTURE 5 RADIOLOGY LUMBAR DIAGNOSTI C PROTEIN 80704 [facility] TOTAL 5 N N XCPT COMMUNTIY COMMUNTIY REFRACTOM HOSPITA HOSPITA ETRY OTH SRC FLUOR 88123 [facility] [place] EILU NEEDLE/CA 5 RADIOLOGY TH SPINE/PAR ASPINAL DX/THER ADDON SMR PRIM 82132 [facility] SRC 5 N N GRAM/GIEM COMMUNTIY COMMUNTIY SA STAIN HOSPITA HOSPITA BCT FUNGI/JOSE L CUL BACT 52855 [facility] XCPT 5 N N URINE COMMUNTIY COMMUNTIY BLOOD/STO HOSPITA HOSPITA OL AEROBIC ISOL CYTP 38536 [facility] SLCTV 5 CLAIRE & ELIU CELL DUBILIER ENHANCEME NT INTERPJ XCPT C/V CELL 15128 [facility] COUNT 5 N N MISC BODY COMMUNTIY COMMUNTIY FLUIDS HOSPITA HOSPITA W/DIFFERE NTIAL COUNT RADIOLOGI 05994 [facility] C EXAM 5 N N BOTH COMMUNTIY COMMUNTIY KNEES HOSPITA HOSPITA STANDING ANTEROPOS T RADIOLOGI 71280 [facility] [place] ELIU C 5 RADIOLOGY EXAMINATI ON KNEE 3 VIEWS RADIOLOGI 22726 [facility] C 5 N N EXAMINATI COMMUNTIY COMMUNTIY ON KNEE HOSPITA HOSPITA 1/2 VIEWS E-STIM G0283 [facility] 1/> AREAS 5 [facility] OTH THAN INC INC WND CARE PART TX PLAN APPLICATI 46364 [facility] ON 5 [facility] MODALITY INC INC 1/> AREAS HOT/COLD PACKS MANUAL 01364 [facility] THERAPY 5 [facility] TQS 1/> INC INC REGIONS EACH 15 MINUTES APPLICATI 15681 [facility] ON 5 [facility] MODALITY INC INC 1/> AREAS HOT/COLD PACKS E-STIM G0283 [facility] 1/> AREAS 5 [facility]OS[facility] OTH THAN INC INC WND CARE PART TX PLAN E-STIM G0283 [facility] B[facility] 1/> AREAS 5 [facility]OS[facility] OTH THAN INC INC WND CARE PART TX PLAN APPLICATI 36712 [facility] ON 5 [facility] MODALITY INC INC 1/> AREAS HOT/COLD PACKS MANUAL 95513 [facility] THERAPY 5 [facility] TQS 1/> INC INC REGIONS EACH 15 MINUTES MANUAL 00973 [facility] THERAPY 5 [facility] TQS 1/> INC INC REGIONS EACH 15 MINUTES APPLICATI 31823 [facility] ON 5 [facility] MODALITY INC INC 1/> AREAS HOT/COLD PACKS E-STIM G0283 [facility] 1/> AREAS 5 [facility]OS[facility] OTH THAN INC INC WND CARE PART TX PLAN E-STIM G0283 [facility] B[facility] 1/> AREAS 5 [facility] OTH THAN INC INC WND CARE PART TX PLAN APPLICATI 15922 [facility] B[facility] ON 5 [facility] MODALITY INC INC 1/> AREAS HOT/COLD PACKS MANUAL 13457 [facility] THERAPY 5 [facility] TQS 1/> INC INC REGIONS EACH 15 MINUTES MANUAL 50687 [facility] THERAPY 5 [facility] TQS 1/> INC INC REGIONS EACH 15 MINUTES APPLICATI 84791 [facility] ON 5 [facility] MODALITY INC INC 1/> AREAS HOT/COLD PACKS E-STIM G0283 [facility] B[facility] 1/> AREAS 5 [facility] OTH THAN INC INC WND CARE PART TX PLAN PHYSICAL 48201 [facility] B[facility] THERAPY 5 [facility] EVALUATIO INC INC N THERAPEUT 98312 [facility] IC PX 1/> 5 [facility] AREAS INC INC EACH 15 MIN EXERCISES MRI BRAIN 33301 [facility] [place] RYNE BRAIN 5 RADIOLOGY III JAYESH STEM W/O CONTRAST MATERIAL KNEE L1845 [facility]ED ADVANCED ORTHOSIS 4 TECHNOLOG TECHNOLOG DOUBLE IES INC IES INC UPRIGHT THIGH & CALF PREFAB RADIOLOGI 11770 [facility] C 4 N N EXAMINATI COMMUNITY COMMUNITY ON KNEE HOSPITA HOSPITA 1/2 VIEWS BLOOD 37517 [facility] COUNT 4 N N COMPLETE [facility] AUTOMATED HOSPITA HOSPITA COLLECTIO 90035 [facility] N VENOUS 4 N N BLOOD [facility] VENIPUNCT HOSPITA HOSPITA URE RADIOLOGI 93545 [facility] [place] C 4 RADIOLOGY RHO EXAMINATI ON PELVIS 1/2 VIEWS COMPREHEN 35196 [facility] SIVE 4 N N METABOLIC [facility] PANEL HOSPITA HOSPITA RADIOLOGI 38867 [facility] [place] C 4 RADIOLOGY RHO EXAMINATI ON KNEE 3 VIEWS RADIOLOGI 76144 [facility] EXAM 4 N N BOTH [facility] KNEES HOSPITA HOSPITA STANDING ANTEROPOS T ADMINISTR G0008 [employer] PHARMACY INFLUENZA #591 #591 VIRUS VACCINE IIV3 VACC 82420 [employer] PHARMACY PRESERVAT #591 #591 JAG FREE 0.5 ML DOSAGE IM USE INJECTION J1100 MAGED LYNNE 4 JANE JANE DEXAMETHO SONE SODIUM PHOSPHATE 1 MG INJECTION J2405 [facility] 4 [facility] ONDANSETR INC INC ON HCL PER 1 MG THERAPEUT 26360 [facility] B[facility] IC 4 [facility] INJECTION [place] [address] [facility] INFUSION 4 [facility] THERAPY/P INC INC ROPHYLAXI S /DX 1ST TO 1 HR ARTHRS 93433 [facility] KNEE 4 [facility] ABRASION INC INC ARTHRP/ML [place] DRLG/[place] [address] [facility] INFUSION 4 [facility] THERAPY INC INC PROPHYLAX IS/DX EA HOUR ARTHRS 87682 [facility] KNEE 4 [facility] W/MENISCE INC INC CTOMY MED&LAT W/SHAVING BASIC 49820 [facility] METABOLIC 4 [facility] PANEL INC INC CALCIUM TOTAL ECG 90818 INDIO ADAM JR ROUTINE 4 [facility] W/LEAST P 12 LDS I&R ONLY BLOOD 53339 [facility] COUNT 4 [facility] COMPLETE INC INC AUTO&AUTO DIFRNTL WBC ECG 44142 [facility] ROUTINE 4 [facility] ECG INC INC W/LEAST 12 LDS TRCG ONLY W/O I&R COLLECTIO 48159 [facility] N VENOUS 4 [facility] BLOOD INC INC VENIPUNCT URE URNLS DIP 42343 MAGED LYNNE 4 JANE JANE STICK/TAB LET RGNT NON-AUTO W/O MICRSCP RADEX 04446 [facility] SPINE 4 [facility] LUMBOSACR INC INC AL MINIMUM 4 VIEWS CERV/VAGI G0101 CHARLES PERERA NAL 4 DILMA CASILLAS CANCER SCR; PELV&CLIN BREAST EXAM SCR G0145 BIO BIO CYTOPATH 4 REFERNCE REFERNCE CERV/VAG LABORATOR LABORATOR SCR IES IES AUTO&MNL RSCR PHYS RADIOLOGI 94935 [facility] C 4 [facility] EXAMINATI INC INC ON KNEE 3 VIEWS IADNA 91507 BIO BIO TRICHOMON 4 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 VAGINALIS IES IES AMPLIFIED PROBE TECH ANNUAL G0438 CHARLES PERERA WELLNESS 4 DILMA CASILLAS VISIT; PERSONALI Z PPS INIT VISIT THERAPEUT 02349 [facility] IC 4 [facility] PROPHYLAC INC INC TIC/DX INJECTION SUBQ/IM SCREEN Q0091 CHARLES PERERA PAP 4 DILMA CASILLAS SMEAR; OBTAIN PREP &C ONVEY TO LAB URINLS 27365 CHARLES Bojorquez DIP 4 DILMA PERERA MD STICK/TAB LET REAGNT NON-AUTO MICRSCPY BLOOD 64487 [facility] COUNT 4 SUZI SUZI COMPLETE [facility] AUTOMATED COMPREHEN 47030 [facility] SIVE 4 [facility] METABOLIC [place] [address] [facility] THYROID 4 [facility] STIMULATI [facility] NG HORMONE TSH ARTHROCEN 54993 [facility] TESIS 4 PHYSICIAN ALFONSO ASPIR&/IN S GROUP J MAJOR JT/[place] [address] [facility] THYROID 4 [facility] STIMULATI INC INC NG HORMONE TSH COMPREHEN 38208 [facility] SIVE 4 [facility] METABOLIC INC INC PANEL BLOOD 06270 [facility] COUNT 4 [facility] COMPLETE INC INC AUTO&AUTO DIFRNTL WBC URNLS DIP 01474 [facility] 4 [facility] HOSP STICK/TAB INC INC LET REAGENT AUTO MICROSCOP Y COLLECTIO 82197 INDIO Laguerre VENOUS 4 [facility] HOSP BLOOD INC INC VENIPUNCT URE LIPID 68337 [facility] PANEL 4 [facility] INC INC MRI ANY 44698 [place] KL[place] JT LOWER 4 MEDICAL KASSANDRA EXTREM IMAGING W/O ASS CONTRAST MATRL THERAPEUT 60433 [facility] IC 4 [facility] PROPHYLAC INC INC TIC/DX INJECTION SUBQ/IM DIAGNOSTI G0204 [facility] C 3 [facility] HOSP MAMMOGRAP INC INC HY INCL CAD WHEN PERF; BILAT HYALURONA J7325 [facility]TE[facility] N/DERIV 3 PHYSICIAN ALFONSO SYNVISC/S S GROUP YNVISC-ON E IA INJ 1 MG ARTHROCEN 30390 [facility] PETTEKimberly TESIS 3 PHYSICIAN ALFONSO ASPIR&/IN S GROUP J MAJOR JT/BURSA W/O US APPL 66229 MIAN ORTIZ MODALITY 3 MATT 1/> AREAS [place] [address] MIAN ORTIZ 1/> AREAS 3 MATT EACH 15 CHIROPRAC MIN TIC CENTE NEUROMUSC REEDUCA THERAPEUT 18299 MIAN ORTIZ IC PX 1/> 3 MATT AREAS CHIROPRAC EACH 15 TIC CENTE MIN EXERCISES APPLICATI 96545 MIAN DIANA ON 3 MATT MODALITY CHIROPRAC 1/> AREAS TIC CENTE HOT/COLD PACKS CHIROPRAC 14083 MIAN DIANA TIC 3 MATT MANIPULAT CHIROPRAC JAG TX TIC CENTE SPINAL 3-4 REGIONS CHIROPRAC 38549 MIAN DIANA TIC 3 MATT MANIPULAT CHIROPRAC JAG TX TIC CENTE SPINAL 3-4 REGIONS APPLICATI 94432 MIAN DIANA ON 3 MATT MODALITY CHIROPRAC 1/> AREAS TIC CENTE HOT/COLD PACKS THERAPEUT 90835 MIAN DIANA IC PX 1/> 3 MATT AREAS CHIROPRAC EACH 15 [place] [address] MIAN DIANA 1/> AREAS 3 MATT EACH 15 CHIROPRAC MIN TIC CENTE NEUROMUSC REEDUCA APPL 78587 MIAN DIANA MODALITY 3 MATT 1/> AREAS CHIROPRAC TRACTION TIC CENTE MECHANICA L APPL 08530 MIAN DIANA MODALITY 3 MATT 1/> AREAS CHIROPRAC TRACTION TIC CENTE MECHANICA L THERAPEUT 50230 MIAN DIANA IC PX 1/> 3 MATT AREAS CHIROPRAC EACH 15 TIC CENTE MIN EXERCISES APPLICATI 72759 MIAN ORTIZ ON 3 MATT MODALITY CHIROPRAC 1/> AREAS TIC CENTE HOT/COLD PACKS CHIROPRAC 23588 MIAN DIANA TIC 3 MATT MANIPULAT CHIROPRAC JAG TX TIC CENTE SPINAL 3-4 REGIONS BOTULINUM J0585 [facility] MANLEY ÁNGEL TOXIN 3 N TYPE A NEUROLOGY PER UNIT CHEMODERV 99472 [facility] MANLEY ÁNGEL ATE 3 N FACIAL/TR NEUROLOGY IGEM/CERV MUSC MIGRAINE INJECTION J0171 [facility] 3 N N ADRENALIN [facility] EPINEPHRI NE 0.1 MG SEPTOPLAS 22593 [facility] TY/SUBMUC 3 N N OUS [facility] W/WO CARTILAGE GRF NASAL/SIN 96964 [facility] US 3 N N ENDOSCOPY [facility] HOSPITA HOSPITA W/MAXILLA RY ANTROSTOM Y SUBMUCOUS 84841 [facility] RESCJ 3 N N INFERIOR [facility] TURBINATE HOSPITA HOSPITA PRTL/COMP L INJ Q9968 [facility] NONRADIAT 3 N N JAG [facility] NONCONTRA HOSPITA HOSPITA ST VIZ ADJUNCT 1 MG NASAL/SIN 47140 [facility] 3 N N ENDOSCOPY [facility] HOSPITA HOSPITA W/ETHMOID ECTOMY TOTAL NASAL/SIN 29042 [facility] NDSC 3 N N W/FRONTAL [facility] SINUS HOSPITA HOSPITA EXPLORATI ON NASAL/SIN 25413 [facility] 3 N N ENDOSCOPY [facility] HOSPITA HOSPITA W/SPHENOI DOTOMY INJECTION J0690 [facility] 3 N N CEFAZOLIN [facility] SODIUM HOSPITA HOSPITA 500 MG STRTCTC 82079 [facility] CPTR 3 N N ASSTD PX [facility] EXTRADURA HOSPITA HOSPITA L CRANIAL INJECTION J3010 [facility] FENTANYL 3 N N CITRATE [facility] 0.1 MG HOSPITA HOSPITA INJECTION J2370 [facility] 3 N N PHENYLEPH [facility] RINE HCL HOSPITA HOSPITA UP TO 1 ML INJECTION J2405 [facility] 3 N N ONDANSETR [facility] ON HCL HOSPITA HOSPITA PER 1 MG ANESTHESI 92798 SAMMI Damian NOSE & 3 ANESTHESI ELIU ACCESSORY A GROUP SINUSES PS NOS DECALCIFI 00748 [facility] CATION 3 N N PROCEDURE [facility] [place] [address] [facility] SURG 3 N N PATHOLOGY [facility] HOSPITA HOSPITA GROSS&MIKAL ROSCOPIC EXAM INJECTION J1100 [facility] 3 N N DEXAMETHO [facility] SONE HOSPITA HOSPITA SODIUM PHOSPHATE 1 MG INJECTION J2001 [facility] 3 N N LIDOCAINE [facility] HCL HOSPITA HOSPITA INTRAVENO US INFUS 10 MG BLOOD 18097 [facility] COUNT 3 N N HEMATOCRI [facility] T HOSPITA HOSPITA COLLECTIO 38308 [facility] N VENOUS 3 N N BLOOD [facility] VENIPUNCT HOSPITA HOSPITA URE BLOOD 72488 [facility] COUNT 3 N N HEMOGLOBI [facility] N HOSPITA HOSPITA INTRACUTA 57539 EAR, NOSE SHASHY NEOUS 3 AND HARESH TESTS THROAT W/ALLERGE SPECIAL ABNER EXTRACTS PERCUTANE 19669 EAR, NOSE SHASHY OUS TESTS 3 AND HARESH THROAT W/[place] [address] [facility] [place] SCALF ELIU MAXILLOFA 3 RADIOLOGY CIAL W/O CONTRAST MATERIAL NASOPHARY 83436 EAR, NOSE SHASHY NGOSCOPY 3 AND HARESH W/[place] [address] MIAN ORTIZ 1/> AREAS 3 MATT EACH 15 CHIROPRAC MIN TIC CENTE NEUROMUSC REEDUCA APPL 06935 MIAN ORTIZ MODALITY 3 MATT 1/> AREAS CHIROPRAC TRACTION TIC CENTE MECHANICA L CHIROPRAC 17341 MIAN ORTIZ TIC 3 MATT MANIPULAT CHIROPRAC JAG TX TIC CENTE SPINAL 3-[place] [address] MIAN ORTIZ 1/> AREAS 3 MATT EACH 15 CHIROPRAC MINUTES TIC CENTE MASSAGE OPHTHALMO 40118 JACKELYN HAYDEN SCPY 3 JAM JAM EXTENDED RETINAL DRAWING I&R 1ST DETERMINA 64759 JACKELYN HAYDEN TION 3 JAM JAM REFRACTIV E STATE CHIROPRAC 26964 MIAN ORTIZ TIC 3 MATT MANIPULAT CHIROPRAC JAG TX TIC CENTE SPINAL 3-[place] [address] MIAN ORTIZ 1/> AREAS 3 MATT EACH 15 CHIROPRAC MINUTES TIC CENTE MASSAGE APPL 79702 MIAN ORTIZ MODALITY 3 MATT 1/> AREAS [place]OP[place] [address] MIAN ORTIZ 1/> AREAS 3 MATT EACH 15 CHIROPRAC [place] [address] MIAN ORTIZ 1/> AREAS 3 MATT EACH 15 CHIROPRAC MIN TIC CENTE NEUROMUSC REEDUCA APPL 37550 MIAN ORTIZ MODALITY 3 MATT 1/> AREAS [place]IROPRAC [place] [address] MIAN ORTIZ 1/> AREAS 3 MATT EACH 15 CHIROPRAC MINUTES TIC CENTE MASSAGE CHIROPRAC 44357 MIAN ORTIZ TIC 3 MATT MANIPULAT CHIROPRAC JAG TX TIC CENTE SPINAL 3-4 REGIONS THERAPEUT 61686 [facility] IC 2 [facility] PROPHYLAC INC INC TIC/DX INJECTION SUBQ/IM COMPUTER- 67474 [place] KL[place] AIDED 2 MEDICAL KASSANDR[place] DETECTION IMAGING ASS SCREENING MAMMOGRAP HY SCREENING G0202 [place] 2 MEDICAL [place] MAMMOGRAP IMAGING HY BENEDICT ASS INCL CAD WHEN PERFORMD CHIROPRAC 68458 MIAN CALVERT DOMINIQUE TIC 2 MANIPULAT CHIROPRAC JAG TX TIC CENTE SPINAL 3-4 REGIONS CHIROPRAC 58743 MIAN CALVERT DOMINIQUE TIC 2 MANIPULAT CHIROPRAC JAG TX TIC CENTE SPINAL 3-4 REGIONS URIN 76592 CHARLES PERERA DIP 2 DILMA PEREZ SONJA STICK/TAB LET REAGNT NON-AUTO MICRSCPY ANNUAL G0438 CHARLES Bojorquez WELLNESS 2 DILMA PERERA MD VISIT; PERSONALI Z PPS INIT VISIT BLOOD 58611 CHARLES PERERA OCCULT 2 DILMA CASILLAS PEROXIDAS E ACTV QUAL FECES 1 DETER CYTP C/V 21533 BIO BIO AUTO THIN 2 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 PREPJ SCR IES IES MNL RESCR PHYS IADNA 82347 BIO BIO NEISSERIA 2 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 GONORRHOE IES IES AE AMPLIFIED PROBE TQ IADNA NOS 16152 BIO BIO 2 REFERNCE REFERNCE AMPLIFIED LABORATOR LABORATOR PROBE TQ IES IES EACH ORGANISM IADNA 31771 BIO BIO CHLAMYDIA 2 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 TRACHOMAT IES IES IS AMPLIFIED PROBE TQ CHIROPRAC 18350 MIAN DIANA TIC 2 MATT MANIPULAT CHIROPRAC JAG TX TIC CENTE SPINAL 3-4 REGIONS CHIROPRAC 90783 [place] CALVERT DOMINIQUE TIC 2 MANIPULAT CHIROPRAC JAG TX TIC CENTE SPINAL 3-4 REGIONS CHIROPRAC 10875 [place] CALVERT DOMINIQUE TIC 2 MANIPULAT CHIROPRAC JAG TX TIC CENTE SPINAL 3-4 REGIONS CHIROPRAC 57624 [place] CALVERT DOMINIUQE TIC 2 MANIPULAT CHIROPRAC JAG TX TIC CENTE SPINAL 3-4 REGIONS CHIROPRAC 30512 [place] CALVERT DOMINIQUE TIC 2 MANIPULAT CHIROPRAC JAG TX TIC CENTE SPINAL 3-4 REGIONS RADEX 79240 [facility] SPINE 2 MEDICAL [place] LUMBOSACR IMAGING AL ASS MINIMUM 4 VIEWS INJ J0702 [facility] BETAMETHA 2 JAM JAM SONE ACETATE & PHOSPHATE 3 MG INFLUENZA Q2036 [facility] VACC 2 JAM JAM SPLIT VIRUS 3 YRS & > IM FLULAVAL INJECTION J1100 BR[facility] BROCK 2 JAM JAM DEXAMETHO SONE SODIUM PHOSPHATE 1 MG URNLS DIP 48733 BROCK BROCK 2 JAM JAM STICK/TAB LET RGNT NON-AUTO W/[place] [address] [facility] [place] MAT ABDOMEN & 2 RADIOLOGY PELVIS W/O CONTRAST MATERIAL URNLS DIP 26172 [place] [facility] STICK/TAB HOSPITAL HOSPITAL LET REAGENT AUTO MICROSCOP Y RADEX 67638 [facility] FOOT 2 [facility] COMPLETE INC INC MINIMUM 3 VIEWS TDAP 37382 [facility] VACCINE 7 2 MEM [facility] MEM HOSP YRS/> IM INC INC RADEX TOE 91131 [facility] B[facility] MINIMUM 2 MEM H[facility] MEM HOSP 2 VIEWS INC INC RADIOLOGI 19650 [place] C 2 MEDICAL [place] EXAMINATI IMAGING ON K[place] [address] [place] [address] [facility] [place] ABDOMEN & 2 RADIOLOGY CAR PELVIS W/O CONTRAST MATERIAL CUL BACT [address] ADDL METHS DEFINITIV E EA ISOL SMR PRIM [address] GRAM/GIEM SA STAIN BCT FUNGI/JOSE L CUL BACT 90379 [facility] XCPT [address] [place] [address] URINE BLOOD/STO OL AEROBIC ISOL COMPREHEN 68611 [facility] SIVE [address] [place] [address] METABOLIC PANEL HEMOGLOBI [address] GLYCOSYLA STEFANO A1C PREALBUMI [address] [place] [address] SUBCUTANE OUS TISSUE 20 SQ CM/< COLLECTIO 80341 [facility] VENOUS [address] [place] [address] BLOOD VENIPUNCT URE INJECTION J1100 MAGED LYNNE 1 JANE JANE DEXAMETHO SONE SODIUM PHOSPHATE 1 MG MRI LOWER 44809 [place] KL[place] EXTREM 1 MEDICAL KASSANDRA OTH/THN IMAGING JT W/O ASS CONTR MATRL RADIOLOGI 44371 [facility] [place]KK[place] C 1 RADIOLOGY RHO EXAMINATI ON KNEE 3 VIEWS LOCM Q9967 [facility]399 1 [facility] MG/[facility] IODINE CONCENTRA TION PER ML HI OSM Q9963 [facility] [place] [facility] 1 [facility] [phone] MG/[place] [address] [facility] [place] MAT ABDOMEN & 1 RADIOLOGY PELVIS W/CONTRAS T MATERIAL URNLS DIP 26660 [facility] 1 [facility] STICK/TAB INC INC LET REAGENT AUTO MICROSCOP Y MRI LOWER 86133 KRISHNA KELLER EXTREM [address] [facility] JT W/O & W/CONTR MATR NRV CNDJ 43688 ZOROASTRIAN JULIETA T AMPLITUDE 1 NEUROLOGY & SERVICES LATENCY EACH NERVE SENSORY H-REFLEX 71501 ZOROASTRIAN JULIETA Crowley AMPLT&LAT 1 NEUROLOGY ENCY SERVICES GASTRCN/S OLEUS MUSC NRV CNDJ 35115 ZOROASTRIAN JULIETA T AMPLT&LAT 1 NEUROLOGY NCY EA SERVICES NRV MOTR W/O F-WAVE STD NRV CNDJ 76717 [facility] AMPLT&LAT 1 ZORO[facility]RIAN ZOROASTRIAN ENCY EA HOSP HOSP NRV MOTOR W/F-WAVE STD RADEX 60004 [facility] [place] ARCHER FOOT 1 RADIOLOGY KAHLIL COMPLE[place] MIN[address] [place] [address] [facility]ORJAS ABDOMEN & 1 [facility] PELVIS INC INC W/O CONTRAST MATERIAL URNLS DIP 63018 [facility]JAS 1 [facility] STICK/TAB INC INC LET REAGENT AUTO MICROSCOP Y 3D 73521 [facility] BORJAS RENDERING 1 [facility] INC INC W/INTERP& POSTPROC DIFF WORK STATION CT LOWER 610[address] [facility] EXTREMITY 0 N N W/O [facility] CONTRAST HOSPITA HOSPITA MATERIAL INITIAL 93939 [place] 1ST 0 EMERGENCY III CHERYL DEGREE SERVICES BURN LOCAL TX INJECTION J2405 [facility] 0 N N ONDANSETR [facility] COMMUNITY ON HCL HOSPITA HOSPITA PER 1 [place] [address] PATHOLOGY PATHOLOGY SURG 0 & & PATHOLOGY CYTOLOGY CYTOLOGY GROSS LAB LAB EXAMINATI ON ONLY RADIOLOGI 02970 [facility] C 0 N N EXAMINATI COMMUNITY [facility] ON FOOT 2 HOSPITA HOSPITA VIEWS COMPREHEN 26719 [facility] SIVE 0 N N METABOLIC COMMUNITY COMMUNITY PANEL HOSPITA HOSPITA FLUOROSCO 30770 [facility] PY SPX UP 0 N N TO 1 COMMUNITY COMMUNITY HOUR HOSPITA HOSPITA PHYS/QHP TIME RADIOLOGI 26127 [facility] [place] MAT C EXAM 0 RADIOLOGY CHEST 2 VIEWS FRONTAL&L ATERAL UNLISTED 25611 [facility] ANESTHESI 0 N N A COMMUNITY COMMUNITY PROCEDURE HOSPITA HOSPITA INJECTION J2250 [facility] 0 N N [place] [facility] HCL PER HOSPITA HOSPITA 1 MG BLOOD 16293 [facility] COUNT 0 N N COMPLETE [facility] AUTO&AUTO HOSPITA HOSPITA DIFRNTL WBC COLLECTIO 90861 [facility] N VENOUS 0 N N BLOOD [facility] VENIPUNCT HOSPITA HOSPITA URE ECG 07252 [facility] ROUTINE 0 N N ECG [facility] W/LEAST HOSPITA HOSPITA 12 LDS TRCG ONLY W/O I&R REMOVAL 97773 [facility] FOREIGN 0 N N BODY FOOT [facility] HOSPITA HOSPITA COMPLICAT ED ANES 27594 [place] RICHARD INTEG 0 ANESTHESI JOHN EXTREMITI A GROUP ES ANT PSC TRUNK & PERINEUM NOS RADIOLOGI 46559 G[facility]IAN ESPOSITO C 0 EMERGENCY DORIAN EXAMINATI SERVICES ON FOOT 2 VIEWS RADEX 42303 [facility] FOOT 0 N N [facility] MINIMUM 3 HOSPITA HOSPITA VIEWS RADIOLOGI 60865 [facility] [place]OHAIB, C EXAM 0 RADIOLOGY MELISSA D CHEST 2 VIEWS FRONTAL&L ATERAL RADIOLOGI 40948 [place] C 0 MEDICAL EUNICE EXAMINATI IMAGING ON PELVIS ASSOCIATE 1/2 S VIEWS RADEX HIP 95023 [place], 0 MEDICAL EUNICE UNILATERA IMAGING L ASSOCIATE COMPLETE S MINIMUM 2 VIEWS URNLS DIP 80980 [facility]AS 0 [facility] STICK/TAB INC INC LET REAGENT AUTO MICROSCOP Y ANES 23794 [place] DEPA, UPPER GI 0 ANESTHESI MARCIA ENDOSCOPY A GROUP PROXIMAL PSC TO DUODENUM EGD 22284 MICHELLE OWENS- TRANSORAL 0 ALEXANDRU, ALEXANDRU, BIOPSY ORSA LEE SINGLE/MU LTIPLE SPECIAL 40628 PATHOLOGY PATHOLOGY STAIN 0 & & GROUP 1 CYTOLOGY CYTOLOGY MICROORGA LAB LAB NISMS I&R SPCL STN 45622 PATHOLOGY PATHOLOGY 2 I&R 0 & & EXCPT CYTOLOGY CYTOLOGY MICROORG/ LAB LAB ENZY[place] [address] PATHOLOGY PATHOLOGY SURG 0 & & PATHOLOGY CYTOLOGY CYTOLOGY LAB LAB GROSS&[place] [address] [facility] AMYLASE 0 [facility] INC INC CREATINE 09879 [facility] BORJAS KINASE MB 0 [facility] FRACTION INC INC ONLY COMPREHEN 29094 INDIO INDIO SIVE 0 [facility] METABOLIC INC INC PANEL ECG 83763 INDIO ADAM, ROUTINE 0 [facility] W/LEAST PROF SERV 12 LDS I&R ONLY ECG 12448 INDIOCYRUS BORJAS ROUTINE 0 [facility] ECG INC INC W/LEAST 12 LDS TR[facility] ONLY W/O I&R CREATINE 58814 [facility] KINASE 0 [facility] [place] [address] INDIO BORJAS LIPASE 0 [place] [address] INDIO BORJAS TROPONIN 0 [facility] QUANTITAT INC INC JAG BLOOD 51286 [facility] BORJAS COUNT 0 [facility] COMPLETE INC INC AUTO&AUTO DIFRNTL WBC HYALURONA J7325 ESTRELLA BANEGAS N/DERIV 0 MEDICAL ODELL T SYNVISC/S SERV YNVISC-ON FOUNDATIO E IA INJ 1 MG APPL 94646 JUDY KIM MODALITY 0 [place] [address]/[facility] ULTRASOUN D EA 15 MIN THERAPEUT 30096 JUDY KIM IC PX 1/> 0 [facility] EACH 15 MIN EXERCISES INJECTION J3301 [facility] T TRIAMCINO SERV LONE FOUNDATIO ACETONIDE NOS 10 MG RADIOLOGI 09811 INDIO Suárez EXAM 9 [facility] BOTH INC INC KNEES STANDING ANTEROPOS T ARTHROCEN 48071 GIOVANNY REYNOLDS 9 MEDICAL ODELL T ASPIR&/IN SERV J MAJOR FOUNDATIO JT/BURSA W/O US RADIOLOGI 03020 [place] KLARISSA, C 9 MEDICAL EUNICE EXAMINATI IMAGING ON KNEE ASSOCIATE 1/2 VIEWS S MRI ANY 48821 CNTRL [place] VALEROT LOWER 9 RADIOLOGY ADRIANA FAROOQ W/O CONTRAST MATRL RADIOLOGI 38130 [facility] KELSEAFOU[facility]IA C 9 [facility] ON KNEE 3 VIEWS RADIOLOGI 31819 CNTRL Kamini SUMNER 9 RADIOLOGY J EXAMINATI ON KNEE 1/2 VIEWS GAUZE A6222 CCS CCS IMPREG 9 MEDICAL MEDICAL NOT H2O NL SALINE/HY DROGEL 16 SQ/< SPCLTY A6251 CCS CCS ABSORB 9 MEDICAL MEDICAL DRESS STERL 16 SQ/<NO ADHES BORDR TAPE A4452 CCS CCS [place] 9 MEDICAL MEDICAL F PER 18 [place] [address] ESTRELLA DE LA ROSA SURG 9 MEDICAL MEDICAL PATHOLOGY SERV SERV FOUNDATIO FOUNDATIO GROSS&MIKAL ROSCOPIC EXAM BX SKIN 68609 [facility] 9 Y Y OUS&/MUCO [facility] US MEMBRANE 1 LESION BLOOD 13041 [facility] K[facility] COUNT 9 [facility] AUTOMATED CREATINE 62671 [facility] KINASE 9 [facility] COLLECTIO 54770 [facility] N VENOUS 9 [facility] VENIPUNCT URE LIPID 83085 [facility] PANEL [address] [place] [address] [place] [address] [facility] THYROID 9 [facility] TSH COMPREHEN 50775 [facility] SIVE [address] [facility] PELVIS 65230 UNIVERSIT UNIVERSIT 9 Y Y W/[facility] [place] [address] UNIVERSIT UNIVERSIT ABDOMEN 9 Y Y W/[facility] T MATERIAL LOCM Q9967 UNIVERSIT UNIVERSIT [phone] Y Y MG/ML [facility] IODINE CONCENTRA TION PER ML COLLECTIO 16719 [facility] N VENOUS 9 Y Y [facility] VENIPUNCT URE BLOOD 34799 [facility]ERS[facility] COUNT 9 Y Y [facility] AUTO&AUTO DIFRNTL WBC BASIC 80424 [facility] METABOLIC 9 Y Y [facility] CALCIUM TOTAL ALGINAT/O A6196 [facility]CS [facility] TH FIBER 9 MEDICAL MEDICAL GELL DRESS STERIL PAD 16 SQ/< SPCLTY A6251 CCS CCS ABSORB 9 MEDICAL MEDICAL DRESS STERL 16 SQ/<NO ADHES BORDR TAPE A4452 CCS [facility]CS [place] 9 MEDICAL MEDICAL F PER 18 SQUARE INCHES CULTURE 89158 [facility] BACTERIAL 9 Y Y [facility] AEROBIC W/ID ISOLATES SCR G0145 PATHOLOGY PATHOLOGY CYTOPATH 9 & & CERV/VAG CYTOLOGY CYTOLOGY SCR LAB LAB AUTO&MNL RSCR PHYS SUSCEPTIB 63422 [facility] ILITY 9 [facility] Wrapp [facility] STUDY ANTIMICRO BIAL DISK METHOD CULTURE 17532 [facility] TYPING 9 [facility] IMMUNOLOG IC OTH/THN IMMUNOFLU ORES CUL BACT 62619 [facility] XCPT 9 [facility] Wra[facility] URINE BLOOD/STO OL AEROBIC ISOL RADEX 94942 [place] [facility] 9 [facility] MINIMUM 2 VIEWS THERAPEUT 36768 TOMER SMALLWOOD IC PX 1/> 8 [facility] J EACH 15 PSC MIN EXERCISES THERAPEUT 47635 ROMEO ROSA PX 1/> 8 [facility] J EACH 15 PSC MIN EXERCISES MANUAL 82465 TOMER SMALLWOOD, THERAPY 8 NAL REHAB MARCOS TQS 1/> ASSOC J REGIONS PSC EACH 15 MINUTES MANUAL 62895 TOMER SMALLWOOD, THERAPY 8 NAL REHAB MARCOS TQS 1/> ASSOC J REGIONS PSC EACH 15 MINUTES THERAPEUT 14880 TOMER SMALLWOOD IC PX 1/> 8 [facility] ASSOC J EACH 15 PSC MIN EXERCISES THERAPEUT 14980 TOMER SMALLWOOD IC PX 1/> 8 [facility] ASSOC J EACH 15 PSC MIN EXERCISES MANUAL 45511 TOMER SMALLWOOD, THERAPY 8 NAL REHAB MARCOS TQS 1/> ASSOC J REGIONS PSC EACH 15 MINUTES MANUAL 11892 TOMER SMALLWOOD, THERAPY 8 NAL REHAB MARCOS TQS 1/> ASSOC J REGIONS PSC EACH 15 MINUTES THERAPEUT 39328 TOMER SMALLWOOD, IC PX 1/> 8 NAL REHAB MARCOS AREAS ASSOC J EACH 15 PSC MIN EXERCISES PHYSICAL 99940 TOMER SMALLWOOD, THERAPY 8 NAL REHAB MARCOS EVALUATIO ASSOC J N PSC THERAPEUT 10223 TOMER SMALLWOOD, IC PX 1/> 8 NAL REHAB MARCOS AREAS ASSOC J EACH 15 PSC MIN EXERCISES APPL 15933 TOMER SMALLWOOD, MODALITY 8 NAL REHAB MARCOS 1/> AREAS ASSOC J PSC ULTRASOUN D EA 15 MIN MRI 90736 [facility] SPINAL 8 [facility] LUMBAR W/O CONTRAST MATERIAL NDL EMG 1 54096 TERRY STEWART, XTR W/WO 8 [place] LERMA RELATED PARASPINA L AREAS NRV CNDJ 09490 TERRY STEWART, AMPLITUDE 8 [place] LERMA & LATENCY EACH NERVE SENSORY NRV CNDJ 11513 TERRY STEWART, AMPLT&LAT 8 [place] LERMA ENCY EA NRV MOTOR W/F-WAVE STD MRI 61318 EUNICE C KLARISSA, SPINAL 8 KLARISSA EUNICE CANAL LUMBAR W/O CONTRAST MATERIAL INJECTION J1030 FAMILY FAMILY 8 CARE CARE METHYLPRE ASSOCIATE ASSOCIATE DNISOLONE S S ACETATE 40 MG Encounters Encounter Start End Date Code Location Performer Type Date OFFICE 19228 CARDIOVAS CEVALLOS [facility] 7 7 CULAR & T VISIT SLEEP 25 CONSU MINUTES [facility] [address] [facility] 7 7 [facility] T OFFICE 18845 [facility] 7 T VISIT ORTHOPAED 15 ICS PSC MINUTES [facility] [place] [facility] 7 7 [facility] T OFFICE [address] [facility] 7 7 CULAR & T VISIT SLEEP 15 CONSU [facility] [address] [facility] [place] 7 7 [facility] T OFFICE 23227 [facility] 7 7 [facility] T NEW 30 CLINIC MINUTES PSC OFFICE 60475 [facility] 7 7 T VISIT ORTHOPAED 15 ICS PSC MINUTES OFFICE 01568 YAMIL TAYLOR [facility] 7 7 REGIONAL T NEW 45 PHYSICIAN MINUTES [facility] [address] [facility] 7 7 CULAR & T VISIT SLEEP 15 CONSU [facility] 7 [facility] 7 [facility] T OFFICE 89217 [facility] 7 7 T VISIT ORTHOPAED 10 ICS PSC MINUTES EMERGENCY 93656 [facility] 7 [facility] T VISIT HIGH/URGE NT [facility] [place] [facility] 7 7 [facility] [place] - [address] [facility] T OFFICE 78224 [facility] 7 7 DIGESTIVE T NEW 45 CARE MINUTES CENTER OFFICE [address] [facility] 7 7 CULAR & T VISIT SLEEP 15 CONSU [facility] 7 7 [facility] OFFICE [address] [facility] 7 7 CULAR & T VISIT SLEEP 25 CONSU MINUTES [facility] - 7 7 [facility] T EMERGENCY 61182 [facility] 7 7 SHADY VISIT EMERGENCY HIGH PHYS SEVERITY& THREAT FUNCJ EMERGENCY 14320 [facility] 7 7 [facility] T VISIT HIGH/URGE NT SEVERITY OFFICE [address] [facility] [facility] 7 7 CULAR & T VISIT SLEEP 25 CONSU MINUTES [facility] 7 7 [facility] - 7 7 [facility] 7 [facility] EMERGENCY 65421 [facility] 7 7 [facility] T VISIT HIGH/URGE NT SEVERITY EMERGENCY [address] [facility] 7 7 SHADY VISIT EMERGENCY HIGH PHYS SEVERITY& THREAT FUNCJ OFFICE 48213 BROCK LYNNE [facility] 7 7 AND T VISIT MAGED, 25 PSC MINUTES OFFICE 81129 [facility] 7 7 T VISIT ORTHOPAED 10 ICS PSC MINUTES EMERGENCY 91439 [facility] 6 6 [facility] T VISIT LIMITED/M INOR PROB EMERGENCY 31432 JUSTIN IQBALH 6 6 PHYSICIAN [facility], PLL T VISIT HIGH/URGE NT SEVERITY [facility]OSPITAL [facility] - [address] [facility] T OFFICE 80231 ALLERGY ZIEGLER [facility] 6 6 PARTNERS T VISIT OF HILLIARD 40 CO MINUTES OFFICE 05608 [facility] 6 6 GRE T VISIT ORTHOPAED 15 ICS PSC MINUTES HOSPITAL [facility] - [address] [facility] OFFICE 63528 CHASTITY KIDD OUTPATIEN 6 6 GRE T VISIT ORTHOPAED 15 ICS PSC MINUTES OFFICE 74711 ALLERGY ZIEGLER MAR OUTPATIEN 6 6 PARTNERS T VISIT OF [place]IARD 25 CO MINUTES HOSPITAL [facility] - [address] [facility] - [address] [facility] EMERGENCY 21107 JUSTIN RUELAS 6 6 PHYSICIAN KADY GONZALEZC T VISIT MODERATE SEVERITY [facility]OSPITAL [facility] - 6 6 [facility] EMERGENCY 89041 INDIO 6 6 [facility] T VISIT LIMITED/M INOR [facility] INDIO - [address] [facility]PITAL [place] ISELAON - 6 6 [facility] T OFFICE 90058 CHASTITY LUIS OUTPATIEN 6 6 SOPHIE T VISIT ORTHOPAED 15 ICS PSC MINUTES HOSPITAL IND[facility] - 6 6 [facility] EMERGENCY 16295 JUSTIN RICE 6 6 PHYSICIAN Tanisha BRIONES S PLL[facility] T VISIT MODERATE SEVERITY OFFICE 14725 [facility] 6 6 [place] T VISIT ORTHOPAED 15 ICS PLC MINUTES OFFICE 60340 IND[facility] OUTPATIEN 6 6 MEMORIAL T VISIT HOSPITAL 15 MINUTES OFFICE 94052 ALLERGY ZIEGLER MAR OUTPATIEN 6 6 PARTNERS T VISIT OF HILLIARD 25 CO MINUTES HOSPITAL [facility] - [address] [facility] OFFICE 21140 ALLERGY ZIEGLER MAR OUTPATIEN 5 5 PARTNERS T VISIT OF HILLIARD 25 CO MINUTES OFFICE 59236 MIAN VICTORIA OUTPATIEN 5 5 VISION ANG T VISIT CENTER 10 MINUTES HOSPITAL GE[facility]GEW - 5 5 N [facility] - 5 5 N OUTPATIEN COMMUNTIY T HOSPITA OFFICE 60220 [facility] OUTPATIEN 5 5 [place] SOP[place] T VISIT ORTHOPAED 25 ICS PLC MINUTES OFFICE 51601 [facility] 5 5 [place] T VISIT ORTHOPAED 15 ICS PLC MINUTES OFFICE 62663 BROCK MAGED OUTPATIEN 5 5 AND JANE T VISIT MAGED, 15 PSC MINUTES OFFICE 72364 ROMEROARIANNELor LAFLEUR OUTPATIEN 5 5 N T VISIT NEUROLOGY 15 MINUTES OFFICE 56258 ALLERGY ZIEGLER MAR OUTPATIEN 5 5 PARTNERS T VISIT OF HILLIARD 25 CO MINUTES OFFICE 65201 ALLERGY ZIEGLER MAR OUTPATIEN 5 5 PARTNERS T NEW 45 OF HILLIARD MINUTES CO OFFICE 93557 [facility] OUTPATIEN 5 5 [place] T NEW 30 ORTHOPAED MINUTES ICS PLC OFFICE 56620 DEON HOROWITZ CIARRA OUTPATIEN 5 5 N T VISIT NEUROLOGY 15 MINUTES HOSPITAL [facility] - 5 5 [facility] OUTPATIEN INC T EMERGENCY 41994 IND[facility] 5 5 [facility] DEPARTMEN INC T VISIT MODERATE SEVERITY [facility]OSPITAL [facility] - 5 5 [facility] OUTPATIEN INC T HOSPITAL DEON - 5 5 N [facility] DE[facility] - 5 5 N OUTPATIEN COMMUNTIY T HOSPITA OFFICE 69053 [facility] CI[facility]PAT[facility] 5 5 N T VISIT NEUROLOGY 15 MINUTES HOSPITAL IND[facility] - 5 5 [facility] OUTPATIEN INC T [facility] - 5 5 N OUTPATIEN COMMUNTIY T HOSPITA OFFICE 41541 DEON HOROWITZ CIARRA OUTPATIEN 5 5 N T VISIT NEUROLOGY 25 MINUTES HOSPITAL GEORGEARIANNEW - 4 4 N OUTPATIEN COMMUNITY T HOSPITA OFFICE 42891 SAMMI ADAN OUTPATIEN 4 4 CrepeGuys, Hedgeable T NEW 30 MINUTES OFFICE 18261 GILLIAN FRENCH OUTPATIEN 4 4 GRE GRE T NEW 45 MINUTES OFFICE 54382 [facility] KAROLINA OUTPATIEN 4 4 PHYSICIAN JAM T VISIT S GROUP 15 MINUTES OFFICE 84933 MAGED MAGED OUTPATIEN 4 4 JANE JANE T VISIT 15 MINUTES HOSPITAL [facility] - 4 4 [facility] OUTPATIEN INC [facility]PITAL [facility] - 4 4 [facility] OUTPATIEN INC T OFFICE 04512 MAGED MAGED OUTPATIEN 4 4 JANE JANE T VISIT 15 MINUTES EMERGENCY 59037 AMBER ROLLINS 4 4 SHADY [facility] EMERGENCY T VISIT SERVI MODERATE SEVERITY EMERGENCY 02098 WOODS CROSSVANESSA 4 4 N 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 SERVICES T VISIT MODERATE SEVERITY HOSPITAL [facility] - 3 3 [facility] OUTPATIEN [facility] T OFFICE 68188 CHARLES PERERA OUTPATIEN 3 3 DILMA CASILLAS T VISIT 25 MINUTES OFFICE 60132 [facility] PETSHELDON OUTPATIEN 3 3 PHYSICIAN JAM T VISIT S GROUP 15 MINUTES OFFICE 78247 MIAN ORTIZ OUTPATIEN 3 3 MATT T VISIT CHIROPRAC 15 TIC CENTE MINUTES OFFICE 90810 DEON NEAL OUTPATIEN 3 3 N T VISIT NEUROLOGY 15 MINUTES [facility]OSP[facility] [place] - 3 3 N OUTPATIEN [facility] T HOSPITA OFFICE 06174 EAR, NOSE SHASHY OUTPATIEN 3 3 AND HARESH T VISIT THROAT 25 SPECIAL [facility] ENW - 3 3 N OUTPATIEN COMMUNITY T HOSPITA OFFICE 11194 DEON NEAL OUTPATIEN 3 3 N T NEW 45 NEUROLOGY MINUTES OFFICE 75336 EAR, NOSE SHASHY OUTPATIEN 3 3 AND HARESH T VISIT THROAT 25 SPECIAL [facility] - 3 3 N OUTPATIEN COMMUNITY T HOSPITA OFFICE 37492 EAR, NOSE SHASHY OUTPATIEN 3 3 AND HARESH T NEW 45 THROAT MINUTES SPECIAL OFFICE 68850 JACKELYN HAYDEN OUTPATIEN 3 3 JAM JAM T NEW 45 MINUTES OFFICE 38519 CHARLES BARNETTPATIKE 3 3 DILMA CASILLAS T VISIT 15 MINUTES OFFICE 22188 CHARLES SPENCE 3 3 DILMA CASILLAS T VISIT 25 MINUTES HOSPITAL [facility] - 3 3 [facility] T EMERGENCY 64453 [facility] 3 3 [facility] T VISIT LIMITED/M INOR PROB EMERGENCY 67657 GILLIAN SELLERS 3 3 EMERGENCY DEPARTMEN SERVICES T VISIT HIGH/URGE NT SEVERITY EMERGENCY 89621 GILLIAN LOZOYA 3 3 EMERGENCY DEPARTMEN SERVICES T VISIT HIGH/URGE NT SEVERITY OFFICE 34833 CHARLES PERERA OUTPATIEN 3 3 DILMA CASILLAS T VISIT 15 MINUTES EMERGENCY 99182 [facility] 2 2 [facility] T VISIT LOW/MODER SEVERITY EMERGENCY 52489 GILLIAN LOUISE 2 2 EMERGENCY DEPARTMEN SERVICES T VISIT HIGH/URGE NT SEVERITY HOSPITAL [facility] - 2 2 [facility] OUTPATIEN [facility] T HOSPITAL [facility] 2 2 [facility] OUTPATIEN [facility] T HOSPITAL IDNIO - 2 2 [facility] OUTPATIEN [facility] T OFFICE 87050 BROCK GUTIÉRREZ OUTPATIEN 2 2 JAM JAM T VISIT 15 MINUTES OFFICE 86181 BROCK GUTIÉRREZ OUTPATIEN 2 2 JAM JAM T VISIT 15 MINUTES EMERGENCY 54990 ANIYAON 2 2 [facility] T VISIT LOW/MODER SEVERITY EMERGENCY 51541 GILLIAN SOKACarlotta SELLERS DEPT 2 2 EMERGENCY VISIT SERVICES HIGH SEVERITY& THREAT [facility] [address] [facility] IN[facility] - [address] [facility] T EMERGENCY 68420 [facility] 2 2 [facility] T VISIT MODERATE SEVERITY EMERGENCY 88880 GILLIAN GAYR 2 2 EMERGENCY III [facility] T VISIT HIGH/URGE NT SEVERITY HOSPITAL [facility] - 2 2 [facility] T OFFICE 36595 BROCK GUTIÉRREZ [facility] 2 2 ALFONSO HAMILTON T VISIT 15 MINUTES EMERGENCY 97184 IND[facility] 2 2 [facility] T VISIT LIMITED/M INOR PROB [facility] INDIO - 2 2 [facility] [address] T OFFICE 35453 ANAYELI TREVIZO OUTPATI 2 2 T NEW 30 MINUTES OFFICE 95333 ANAYELI TREVIZO [place] [address] 2 T VISIT 15 MINUTES OFFICE [address] T NEW 20 MINUTES [address] [address] T OFFICE [address] T VISIT 10 MINUTES OFFICE 63871 [facility] OUTPATI[facility] 2 2 [place] T VISIT ORTHOPAED 15 ICS PLC MINUTES OFFICE 11002 MAGED MAGED OUTPATIEN 1 1 JANE LARA T VISIT 25 MINUTES HOSPITAL [facility] - 1 1 [facility] T OFFICE 98001 [facility] OUTPATIEN 1 1 [place] T NEW 30 ORTHOPAED MINUTES ICS [facility] [place] [facility] 1 1 [facility] [place] - 1 1 [facility] EMERGENCY 67911 GILLIAN RUELAS 1 1 EMERGENCY [facility] DEPARTMEN SERVICES T VISIT HIGH/URGE NT SEVERITY HOSPITAL [place] - [address] [facility] EMERGENCY 03282 IND[facility] 1 1 [facility] T VISIT LOW/MODER SEVERITY HOSPITAL [facility] - 1 1 [facility] INDIO - 1 1 [facility] EMERGENCY 92812 GILLIAN LARA DEPT 1 1 EMERGENCY VISIT SERVICES HIGH SEVERITY& THREAT FUN EMERGENCY 06058 IND[facility] 1 1 [facility] T VISIT LOW/MODER SEVERITY [facility]OSPITAL [facility] 0 [facility] 16339 GILLIAN GARY 0 0 EMERGENCY [facility] DE[facility] T VISIT HIGH/URGE NT SEVERITY [facility]OSP[facility] - 0 0 [facility] EMERGENCY 32375 [facility] 0 0 [facility] T VISIT LOW/MODER SEVERITY [facility]OSPITAL [facility] - 0 0 [facility] 13890 GILLIAN ESPOSITO 0 0 EMERGENCY [facility] DEPARTMEN SERVICES T VISIT HIGH/URGE NT SEVERITY [facility]OSPITAL [facility] - 0 0 [facility] 39682 [facility] 0 0 [facility] MODERATE SEVERITY OFFICE 63593 ESTRELLA MCKENZIE [facility] 0 0 MEDICAL CITLALLI Santos T [facility]ISIT SERV 10 [facility] INDIO - 0 0 [facility] EMERGENC[facility] 53432 INDIO 0 0 [facility] DEPARTMEN INC T VISIT MODERATE SEVERITY EMERGENCY 71297 GILLIAN RUELAS, 0 0 EMERGENCY [facility] DEPARTMEN SERVICES T VISIT HIGH/URGE ASSOCIATE NT S SEVERITY [facility] [place] [facility] 0 0 [facility] EMERGENCY 30914 [facility] 0 0 [facility] DEPARTMEN INC T VISIT HIGH/URGE NT SEVERITY [facility]OSPITAL [facility] - [address] [facility] EMERGENCY 68883 GILLIAN SIMMONS, DEPT 0 0 EMERGENCY [facility] VISIT SERVICES HIGH SEVERITY& ASSOCIATE THREAT S [facility] [address] [facility] 9 [facility] T OFFICE 77058 [facility] 9 9 MEDICAL ODELL T T VISIT SERV 15 FOUNDATIO MINUTES OFFICE 36383 [facility] 9 9 [facility]ICAL [facility]DELL T T VISIT SERV 15 FOUNDATIO MINUTES OFFICE 91101 [facility] 9 9 MEDICAL ODELL T T NEW 30 SERV MINUTES [facility] - 9 9 [facility] [place] [address] [facility] 9 9 [facility] OFFICE [id number] [facility] 9 9 Y T VISIT [facility] 25 [facility] 9 9 [facility] 9 9 [facility] T OFFICE [id number] [facility] 9 9 Y T VISIT HOSPITAL 15 MINUTES OFFICE 93736 [facility] 9 9 [place] L [place] L T VISIT 10 MINUTES HOSPITAL [facility] - 9 9 Y [facility] T OFFICE 13028 [facility] 9 9 [place] T VISIT 15 MINUTES HOSPITAL [facility] 9 9 Y [facility] T OFFICE 75423 [facility] 9 9 Y T VISIT HOSPITAL 15 MINUTES [facility] [place] - 9 9 [facility] T OFFICE 85948 [facility] 9 9 [place] L T VISIT 15 MINUTES OFFICE 16270 [facility] 9 9 Y T VISIT HOSPITAL 25 MINUTES HOSPITAL [facility] - 9 9 Y [facility] T HOSPITAL UNIVERSIT [facility] 9 9 Y [facility] T OFFICE 03518 [facility] 9 9 [place] L [place] L T NEW 45 MINUTES OFFICE 34586 [facility] 9 9 Y T VISIT HOSPITAL 40 MINUTES OFFICE 23388 [facility]ANC[facility] EUNICE, CONSULTAT 9 9 PAIN SOCORRO R ION MEDICIINE NEW/ESTAB PSC PATIENT 60 MIN [facility] 9 [facility] T OFFICE 52897 GLEN, GLEN, OUTPATIEN 8 8 DEVONTE DEVONTE T VISIT 10 MINUTES [facility] 8 [facility] T OFFICE 42123 GLEN, GLEN, CONSULTAT 8 8 DEVNOTE DEVONTE ION NEW/ESTAB PATIENT 40 MIN [facility] - 8 8 [facility] OUT[facility] T EMERGENCY 88375 [facility] 8 8 [facility] DEPART[facility] T VISIT LIMITED/M INOR PROB OFFICE 54815 ROHINILINNROHINILINN, OUTPATIEN 8 8 LESLEY Abdul T NEW 45 MINUTES OFFICE 10799 FAMILY LANETTEBERRY, OUTPATIEN 8 8 CARE MARIELY T T VISIT ASSOCIATE 15 S MINUTES OFFICE 00222 FAMILY LATRICIA, OUTPATIEN 8 8 CARE R ELIZABETH T VISIT ASSOCIATE 15 S MINUTES OFFICE 26139 FAMILY [place] LEBLANC OUTPATIEN 8 8 CARE G T VISIT ASSOCIATE 15 S MINUTES OFFICE 63077 [facility]ILY OUTPATIEN 8 8 CARE CARE T VISIT ASSOCIATE ASSOCIATE 15 S S MINUTES OFFICE 26343 FAMILY FAMILY OUTPATIEN 8 8 CARE CARE T VISIT ASSOCIATE ASSOCIATE 25 S S MINUTES OFFICE 46074 FAMILY FAMILY OUTPATIEN 8 8 CARE CARE T VISIT ASSOCIATE ASSOCIATE 15 S S MINUTES
--- OUTSIDE RECORDS SUMMARY | 2017-07-29 20:21 | External Medical Summary Rpt | CCD ---
Author Author , KELSY TIERNEY Address Unknown Phone [email or web address] Name Relationship Address Phone JOSEPHINE, Next Of Kin Unknown Unavailable JAYME Immunization Name Date Rout CVX Reac Dose Comm Prov Is Faci e tion ent ider Refu lity Give sed n PPV2 09-2 33 0.5 Hist FERR No FERR 3 8-20 mL oric KEYLA KEYLA 17 al LLIS LLIS Info rmat ion - Sour ce Unsp ecif ied Infl 09-2 Intr 150 0.5 Hist WALM No WALM uenz 3-20 amus mL oric ART5 ART5 a 17 cula al 91 91 Quad r Info Inj rmat ion - Sour ce Unsp ecif ied Td 07-2 Intr 9 999 Hist H149 No H149 (janna 9-20 amus oric lt), 03 cula al r Info adso rmat rbed ion - Sour ce Unsp ecif ied
--- OUTSIDE RECORDS SUMMARY | 2017-07-29 20:21 | External Medical Summary Rpt ---
Author Author KELSY Allen, KELSY Allen Organization [employer] Address Unknown Phone Unavailable
--- OUTSIDE RECORDS SUMMARY | 2017-07-29 20:21 | External Medical Summary Rpt | CCD ---
Author Author , KELSY TIERNEY Address Unknown Phone [email or web address] Support Name Relationship Address Phone JOSEPHINE, Next [...]
[2017-07-29 21:13] VITALS: BP 139/84
== END 2017-07-29 21:15 | disposition home or self-care (01) ==
LOC: ER 18:32
PROVIDERS: General Practice
DX: R50.82 Postprocedural fever (principal); Z96.651 Presence of right artificial knee joint; Z88.6 Allergy status to analgesic agent; J45.909 Unspecified asthma, uncomplicated

== ENCOUNTER → 2017-08-26 | Outpatient (CLI) | payer MEDICARE, MEDICAID ==
--- NOTE | 2017-08-26 10:08 | RADIOLOGY REPORT PS360 ---
CT ABD PELVIS W/WO CONTRAST COMPARISON: CT scan abdomen pelvis without contrast 01/12/2011 HISTORY: Abdominal tenderness, left lower quadrant TECHNIQUE: Multiaxial scans obtained from hemidiaphragms the pelvic floor. Precontrast scans were performed following the repeat scans after injection of IV contrast. No oral contrast given. Sagittal coronal reformats were evaluated as well. FINDINGS: The lower lung brown are clear, there is a calcified granuloma right middle lobe. The liver spleen stomach and pancreas appear normal. There is been previous cholecystectomy. The adrenal glands are normal. The kidneys are normal in size and show symmetrical function both appearing normal. Small bowel is normal. There has been a previous appendectomy. There is moderate amount stool throughout the entire colon. There is minimal postsurgical scarring in the subcutaneous tissues in the right lower quadrant. There has been a previous hysterectomy. Urinary bladder is decompressed, is no free fluid in the pelvis. IMPRESSION: No acute abdominal or pelvic pathology identified.
== END ==
LOC: RAD 08:55
DX: R10.814 Left lower quadrant abdominal tenderness (principal)
CPT/HCPCS: Q9967